=== PATIENT | male | born 1955 | race African-American/Black ===

== ENCOUNTER 2022-05-23 01:43 | Inpatient (IN) | payer MEDICAID, SELFPAY ==
[2022-05-23] VITALS (35 sets, daily range): BP systolic 60–216; BP diastolic 26–111; PULSE 74–126; RESP 14–281; TEMP 28.9–37.2; O2SAT 90–100; BMI 27.5; BMI 28.0
--- NOTE | ~2022-05-23 | XR_ITS ---
EXAMINATION: XR ABDOMEN KUB CLINICAL INDICATION: Nausea, distended abdomen COMPARISON: None TECHNIQUE: AP view of the abdomen. FINDINGS: No gross large volume intra-abdominal free air on this limited supine exam. Moderate gaseous distention of the stomach. There are scattered bowel gas in nondilated loops of small bowel and within portions of the colon. Small amount gas in the rectum. No dilated air-filled small bowel loops. No appreciable bowel wall thickening. Small right basilar pleural effusion versus pleural thickening. Sternal wires, retained epicardial pacing lead and mediastinal vascular clips noted. Atherosclerotic vascular calcifications and right and left iliac stents. Calcifications of the vas deferens noted, which can be associated with underlying diabetes. XR/XR KUB IMPRESSION: Nonspecific, nonobstructive bowel gas pattern.
--- NOTE | ~2022-05-23 | XR_ITS ---
EXAMINATION: XR CHEST CLINICAL INFORMATION: Pulmonary edema COMPARISON: None TECHNIQUE: Frontal view of the chest was obtained. FINDINGS: Lung volumes are symmetric. There are heterogeneous regions of opacity in the perihilar regions and lung bases. Small pleural effusions are also suspected, right greater than left. No evidence of pneumothorax. Cardiac silhouette appears borderline enlarged. Calcification is present at the aortic arch. Sternal wires are present. Stent is present in the left axilla. No acute osseous findings are seen. XR/XR chest 1V IMPRESSION: Bilateral perihilar and basilar heterogeneous opacities suspicious for edema. Small pleural effusions, right greater than left.
--- NOTE | ~2022-05-23 | XR_ITS ---
EXAMINATION: XR CHEST CLINICAL INFORMATION: Central line placement COMPARISON: 05/23/2022 TECHNIQUE: Frontal view of the chest was obtained. FINDINGS: Endotracheal tube tip lies approximately 2 cm above the oziel. Enteric tube tip lies in the region of the gastroesophageal junction. Left IJ central line tip lies in the region of the distal SVC. Lung volumes are symmetric. Redemonstrated perihilar and basilar airspace opacities along with small pleural effusions, right greater than left. No appreciable pneumothorax. The cardiomediastinal silhouette is stable. Calcification is present at the aortic arch. Redemonstrated left axillary stent. No acute osseous findings are seen. XR/XR chest 1V IMPRESSION: Left IJ central line tip in the region of the distal SVC. Enteric tube tip in the region of the gastroesophageal junction; advancement recommended by at least 8 cm. Persistent bilateral opacities suspicious for edema and small pleural effusions.
--- NOTE | ~2022-05-23 | XR_ITS ---
EXAMINATION: XR CHEST CLINICAL INFORMATION: ET tube placement COMPARISON: 05/23/2022 TECHNIQUE: Frontal view of the chest was obtained. FINDINGS: Endotracheal tube tip lies approximately 0.5 cm above the oziel. Enteric tube courses into the stomach. Right IJ central line courses laterally to the region of the right axilla. Lungs are hypoinflated. Persistent heterogeneous bilateral perihilar and basilar opacities, similar to prior. No evidence of pneumothorax. Small right pleural effusion suspected. The cardiomediastinal silhouette is stable. Calcification is present at the aortic arch. Left axillary stent again noted. XR/XR chest 1V IMPRESSION: 1. Endotracheal tube tip approximately 0.5 cm above the oziel. 2. Right IJ central line tip coursing into the region of the right axillary vein. 3. Persistent perihilar and basilar opacities suspicious for edema. This critical result was discussed with Lawrence Yanez MD on 05/23/2022 4:05 AM, and it was ascertained that the content and urgency of the report was understood at the time of direct communication.
--- NOTE | 2022-05-23 01:47 | ECG_ITS ---
Test Reason : SOB Blood Pressure : / mmHG Vent. Rate : 115 BPM Atrial Rate : 115 BPM P-R Int : 176 ms QRS Dur : 076 ms QT Int : 328 ms P-R-T Axes : 048 -30 036 degrees QTc Int : 453 ms Sinus tachycardia Left axis deviation Anterior infarct , age undetermined Abnormal ECG No previous ECGs available Referred By: Robert Yanez Electronically Signed By:BERNY DOZIER
[2022-05-23] MEDS: hydrALAZINE HCl 20 MG/ML VIAL 10 MG IVPUSH (02:02)
[2022-05-23] MEDS: Furosemide 100 MG/10 ML VIAL IVPUSH (02:02)
--- NOTE | 2022-05-23 02:10 | ED.SOB ---
HPI - SOB/Dyspnea General Chief Complaint: Dyspnea Stated Complaint: respiratory distress Time Seen by Provider: 05/23/22 01:45 Source: EMS and RN notes reviewed Mode of arrival: EMS Limitations: no limitations History of Present Illness HPI Narrative: Patient history of end-stage renal disease on dialysis will be getting dialysis tomorrow did not miss any dialysis came from longterm for increased shortness of breath which woke him up from the sleep was diaphoretic this urinate of 40s saturating 40% at she was at room air increased to 100% on non-rebreather. Patient was in severe respiratory distress DNR but DNI. Prior to this patient was in usual health Related Data Allergies Allergy/AdvReac Type Severity Reaction Status Date / Time No Known Allergies Allergy Verified 05/23/22 01:45 Review of Systems Review of Systems: Yes Unobtainable due to mental condition [facility] Social History Social History Household Members: Other Household Members Other:: [facility] Housing: Other Unable to assess alcohol history related to: Unable to respond Patient Tobacco Use Status: Tobacco use Unknown Use of substances other than those prescribed or required for medical reasons: Unknown Spiritual Healthcare Practices: UNKNOWN [facility] Healthcare Practices: UNKNOWN Cultural Healthcare Practices: UNKNOWN Advance Directives: No Advance Directives Information Provided: No Physical Exam Vital Signs: Vital Signs: Last Vital Signs Temp 95.4 F L 05/23/22 06:34 Pulse 86 05/23/22 06:34 Resp 18 05/23/22 06:34 BP 106/65 05/23/22 06:34 Pulse Ox 95 05/23/22 06:00 O2 Del Method 05/23/22 06:34 FiO2 30 05/23/22 06:34 BMI result Body Mass Index 27.5 Appearance: Alert. And awake with severe respiratory distress on non-rebreather Eyes: Pallor++ ENT: Pharynx normal. Oral Mucosa moist Neck: Normal inspection. Neck supple. CVS: Sinus tachycardia soft systolic ejection murmur. Pulses normal. Respiratory: No respiratory distress. Equal air entry bilateral, bilateral diffuse rales Abdomen: Soft and nontender. Bowel sounds are present, no mass palpable, no CVA tenderness Skin: Skin warm and dry. Normal skin color. Normal skin turgor. Extremities: Bilateral AKA Neuro: Alert and awake Course Reevaluation(s) Reevaluation #1: Patient's acute respiratory failure clinically pulmonary edema patient is placed on CPAP on arrival patient is still very tachypneic breathing about 44 will proceed for intubation Time: 02:20 Reevaluation #2: Patient post intubation and central line placement plan to admit to ICU Time: 03:07 MDM - SOB/Dyspnea MDM Narrative Medical decision making narrative: am Patient with acute pulmonary edema end-stage renal disease acute hypoxic respiratory failure status post intubation admitting to the ICU Lab Data Attestation: I reviewed the patient's lab results. Result diagrams: 05/23/22 02:15 05/23/22 02:15 Labs: Lab Results 05/23/22 05/23/22 05/23/22 Range/Units 01:56 02:15 02:15 WBC 10.9 H (4.8-10.8) X10*3/uL RBC 3.07 L (4.60-5.80) X10*6/uL Hgb 9.3 L (14.0-18.0) g/dl Hct 28.0 L (42.0-52.0) % MCV 91.2 (80.0-98.0) fL MCH 30.3 (27.0-33.0) pg MCHC 33.2 (31.0-36.0) g/dl RDW 13.8 (11.0-16.0) % Plt Count 141 L (160-400) X10*3/uL MPV 12.6 H (9.4-12.4) fL Immature Gran % (Auto) 0.4 (0.0-0.4) % Neut % (Auto) 65.1 (45-73) % Lymph % (Auto) 22.3 (20-40) % [place] % (Auto) 7.8 (2-11) % Eos % (Auto) 4.0 (0-4) % Baso % (Auto) 0.4 (0-2) % Lymph # (Auto) 2.4 (1.2-4.9) X10*3/uL [place] # (Auto) 0.9 (0.1-1.2) X10*3/uL Eos # (Auto) 0.4 (0.0-0.4) X10*3/uL Baso # (Auto) 0.0 (0.0-0.2) X10*3/uL Abs Immat Gran (auto) 0.04 H (0.00-0.03) X10*3/uL Absolute Neuts (auto) 7.1 (2.0-8.3) x10*3/uL Absolute Nucleated RBC 0.000 (0.0-0.012) X10*3/uL Nucleated RBC % (auto) 0.0 (0.0-0.2) /100WBC PT 14.8 H (10.0-13.1) SEC INR 1.3 H (0.9-1.1) Sodium (135-145) mmol/L Potassium (3.3-5.1) mmol/L Chloride (96-108) mmol/L Carbon Dioxide (22-29) mmol/L Anion Gap (12-20) BUN (9-16) mg/dL Creatinine (0.5-1.4) mg/dL Estim Creat Clear Calc Estimated GFR POC Glucose 254 H (60-115) mg/dL Random Glucose (60-115) mg/dL Calcium (8.4-10.2) mg/dL Total Bilirubin (0.0-1.0) mg/dL AST (5-37) U/L ALT (0-40) U/L Alkaline Phosphatase (39-117) U/L Troponin I High Sens (<3.5-35.0) ng/L B-Natriuretic Peptide (<100) pg/mL Total Protein (6.5-8.0) g/dL Albumin (3.5-5.0) g/dL COVID-19 (ELENA) (Negative) COVID-19 Clin Com 05/23/22 05/23/22 05/23/22 Range/Units 02:15 02:15 02:15 WBC (4.8-10.8) X10*3/uL RBC (4.60-5.80) X10*6/uL Hgb (14.0-18.0) g/dl Hct (42.0-52.0) % MCV (80.0-98.0) fL MCH (27.0-33.0) pg MCHC (31.0-36.0) g/dl RDW (11.0-16.0) % Plt Count (160-400) X10*3/uL MPV (9.4-12.4) fL Immature Gran % (Auto) (0.0-0.4) % Neut % (Auto) (45-73) % Lymph % (Auto) (20-40) % [place] % (Auto) (2-11) % Eos % (Auto) (0-4) % Baso % (Auto) (0-2) % Lymph # (Auto) (1.2-4.9) X10*3/uL [place] # (Auto) (0.1-1.2) X10*3/uL Eos # (Auto) (0.0-0.4) X10*3/uL Baso # (Auto) (0.0-0.2) X10*3/uL Abs Immat Gran (auto) (0.00-0.03) X10*3/uL Absolute Neuts (auto) (2.0-8.3) x10*3/uL Absolute Nucleated RBC (0.0-0.012) X10*3/uL Nucleated RBC % (auto) (0.0-0.2) /100WBC PT (10.0-13.1) SEC INR (0.9-1.1) Sodium 139 (135-145) mmol/L Potassium 4.2 (3.3-5.1) mmol/L Chloride 102 (96-108) mmol/L Carbon Dioxide 23 (22-29) mmol/L Anion Gap 18 (12-20) BUN 38 H (9-16) mg/dL Creatinine 7.89 H* (0.5-1.4) mg/dL Estim Creat Clear Calc 7.2 Estimated GFR 7 POC Glucose (60-115) mg/dL Random Glucose 252 H (60-115) mg/dL Calcium 7.5 L (8.4-10.2) mg/dL Total Bilirubin 0.9 (0.0-1.0) mg/dL AST 28 (5-37) U/L ALT 16 (0-40) U/L Alkaline Phosphatase 106 (39-117) U/L Troponin I High Sens 74.3 H (<3.5-35.0) ng/L B-Natriuretic Peptide (<100) pg/mL Total Protein 6.9 (6.5-8.0) g/dL Albumin 3.7 (3.5-5.0) g/dL COVID-19 (ELENA) Negative (Negative) COVID-19 Clin Com See Note 05/23/22 Range/Units 02:15 WBC (4.8-10.8) X10*3/uL RBC (4.60-5.80) X10*6/uL Hgb (14.0-18.0) g/dl Hct (42.0-52.0) % MCV (80.0-98.0) fL MCH (27.0-33.0) pg MCHC (31.0-36.0) g/dl RDW (11.0-16.0) % Plt Count (160-400) X10*3/uL MPV (9.4-12.4) fL Immature Gran % (Auto) (0.0-0.4) % Neut % (Auto) (45-73) % Lymph % (Auto) (20-40) % [place] % (Auto) (2-11) % Eos % (Auto) (0-4) % Baso % (Auto) (0-2) % Lymph # (Auto) (1.2-4.9) X10*3/uL [place] # (Auto) (0.1-1.2) X10*3/uL Eos # (Auto) (0.0-0.4) X10*3/uL Baso # (Auto) (0.0-0.2) X10*3/uL Abs Immat Gran (auto) (0.00-0.03) X10*3/uL Absolute Neuts (auto) (2.0-8.3) x10*3/uL Absolute Nucleated RBC (0.0-0.012) X10*3/uL Nucleated RBC % (auto) (0.0-0.2) /100WBC PT (10.0-13.1) SEC INR (0.9-1.1) Sodium (135-145) mmol/L Potassium (3.3-5.1) mmol/L Chloride (96-108) mmol/L Carbon Dioxide (22-29) mmol/L Anion Gap (12-20) BUN (9-16) mg/dL Creatinine (0.5-1.4) mg/dL Estim Creat Clear Calc Estimated GFR POC Glucose (60-115) mg/dL Random Glucose (60-115) mg/dL Calcium (8.4-10.2) mg/dL Total Bilirubin (0.0-1.0) mg/dL AST (5-37) U/L ALT (0-40) U/L Alkaline Phosphatase (39-117) U/L Troponin I High Sens (<3.5-35.0) ng/L B-Natriuretic Peptide 1948 H (<100) pg/mL Total Protein (6.5-8.0) g/dL Albumin (3.5-5.0) g/dL COVID-19 (ELENA) (Negative) COVID-19 Clin Com ECG Data Attestation: I personally reviewed and interpreted this ECG as follows: Interpretation: Sinus tachycardia heart rate 115 beats per minute left axis deviation, poor progression of R-waves no acute distress with no acute ischemia Procedures Central Line Placement Right IJ: Time Out Performed: Yes Patient Placed on Monitor/Pulse Ox: Yes MD Prep: mask and gown Central Line Prep: Chlorhexidine scrub Ultrasound Used for Placement: Yes Central Line Lumen Inserted: triple Post Procedure: sutured in place, good blood return, all ports aspirated, flushed, capped and sterile dressing applied Post Procedure X-Ray: no pneumothorax seen and other (Tip in right subclavian) Patient Tolerated Procedure: no complications Complications: catheter malposition Intubation Time out performed: Yes sedative: Etomidate Mg Given: 10 paralytic: Rocuronium Mg Given: 50 Laryngoscope: Iva ET Tube Size: 8 ET Tube Uncuffed: No Tube Secured Depth (cm): 22 Tube Secured Location: lips Tube Placement Confirmation: visualized tube passing through cords Patient Tolerated Procedure: well Intubation Complications: none Critical Care Time Critical Care Time Critical Care Time: Yes Total Critical Care Time: 60 Attestation: I spent 60 minutes of critical care, with interventions, assessments, speaking to patient, consultants, . Discharge Plan Discharge Clinical Impression: Pulmonary edema, End stage chronic kidney disease, Acute hypoxemic respiratory failure Patient Disposition: Admitted As Inpatient Interventions: Admission Worksheet (ED) Last Done: 05/23/22 06:15 Discharge Date/Time: 05/23/22 06:15
[2022-05-23 02:21] LABS: MANUAL DIFF FLAG NO
[2022-05-23 02:23] LABS: Basophils Percent Auto 0.4 % (0-2); Eosinophils Absolute Auto 0.4 X10*3/uL (0.0-0.4); Hemoglobin 9.3 g/dl (14.0-18.0); Imm Gran Abs Auto 0.04 X10*3/uL (0.00-0.03); Imm Gran Pct Auto 0.4 % (0.0-0.4); Lymphocytes Absolute Auto 2.4 X10*3/uL (1.2-4.9); Lymphocytes Percent Auto 22.3 % (20-40); Mean Corpuscular HGB Conc 33.2 g/dl (31.0-36.0); Mean Corpuscular Hemoglobin 30.3 pg (27.0-33.0); Mean Corpuscular Volume 91.2 fL (80.0-98.0); Mean Platelet Volume 12.6 fL (9.4-12.4); Monocytes Absolute Auto 0.9 X10*3/uL (0.1-1.2); Monocytes Percent Auto 7.8 % (2-11); Neutrophils Absolute Auto 7.1 x10*3/uL (2.0-8.3); Neutrophils Percent Auto 65.1 % (45-73); Platelet Count 141 X10*3/uL (160-400); Red Blood Count 3.07 X10*6/uL (4.60-5.80); Red Cell Distribution Width 13.8 % (11.0-16.0); White Blood Count 10.9 X10*3/uL (4.8-10.8)
[2022-05-23 02:29] LABS: INTERNATIONAL NORM RATIO 1.3 (0.9-1.1); Prothrombin Time 14.8 SEC (10.0-13.1)
[2022-05-23 02:37] LABS: COVID-19 Test Negative (Negative)
[2022-05-23] MEDS: Rocuronium Bromide 50 MG/5 ML VIAL IVPUSH (02:40)
[2022-05-23 02:45] LABS: B Type Natriuretic Peptide 1948 pg/mL (<100)
[2022-05-23 02:46] LABS: Troponin-I High Sensitivity 74.3 ng/L (<3.5-35.0)
[2022-05-23 02:50] LABS: Alanine Aminotransferase 16 U/L (0-40); Albumin Level 3.7 g/dL (3.5-5.0); Alkaline Phosphatase 106 U/L (39-117); Anion Gap 18 (12-20); Aspartate Amino Transferase 28 U/L (5-37); Bilirubin Total 0.9 mg/dL (0.0-1.0); Blood Urea Nitrogen 38 mg/dL (9-16); Calcium 7.5 mg/dL (8.4-10.2); Carbon Dioxide 23 mmol/L (22-29); Chloride 102 mmol/L (96-108); Creatinine Clr Calc Pharmacy 7.2; Estimated Glomerular Filt Rate 7; Glucose Random 252 mg/dL (60-115); Potassium 4.2 mmol/L (3.3-5.1); Sodium 139 mmol/L (135-145); Total Protein 6.9 g/dL (6.5-8.0)
[2022-05-23] MEDS: Etomidate 20 MG/10 ML VIAL 10 MG IVPUSH (03:14)
[2022-05-23] MEDS: propofoL 1,000 MG/100 ML VIAL 3.84 MG IVCONT (03:30)
--- NOTE | 2022-05-23 03:59 | W.PM.CCHP ---
Procedures Date of Service Date of Service: 05/23/22 Central Line Placement Left IJ: Central Line Comments: A quick time-out was made for clarification and proper patient identification, patient was positioned, landmarks were identified, US used to locate a large compressible IJ. The left neck was widely prepped and draped in a full sterile fashion. Ultrasound was used to locate again the left IJ, the vein was cannulated on the 1st pass with an 18 gauge thin needle, dark nonpulsatile blood return was obtained. The wire was threaded, a small incision was made at its base and dilator inserted. A triple-lumen central venous catheter was advanced into the vein up to the hub without problems, wired was removed. Ports had good blood return and flushed x3. The catheter was secured with 3 sutures at 3 sites, a Biopatch and dry sterile dressing were applied. At the same time, the right IJ catheter was removed for it was difficult to pull back, therefore I did not think re threading the wire would work. Post procedure chest x-ray showed the line to be in good position without pneumothorax. No bleeding or complications noted.
--- NOTE | 2022-05-23 03:59 | PM.CCHP ---
History of Present Illness Date of Service: 05/23/22 Attending physician on admission: James Mitchell Chief Complaint: Hypoxic respiratory failure, pulmonary edema Source of history: ?ER chart ? HPI:? Patient is seen in the emergency room complaints of shortness of breath since earlier today, patient was transferred from long term facility, reportedly he has a history of end-stage renal disease, coronary disease status post CABG, hypertension, diabetes, bilateral [id number] amputations, otherwise unknown. According to the ER physician, the patient quickly deteriorated as the patient presented with a simple mask oxygen supplementation and was quite hypertensive with systolic blood pressure over 204, tachypneic, appear to be in distress, Lasix was given and the patient quickly decompensated leading to emergent intubation. ? His laboratory survey reveals a white count of 10.9, hemoglobin 9.3, hematocrit 28, platelets 141, sodium 139, potassium 4.2, chloride 102, carbon dioxide 23, BUN 38, creatinine 7.89, glucose 252.? COVID negative, patient is BNP is 1948, troponin 74.3, his chest x-ray did show bilateral and bibasilar heterogeneous opacities suspicious for pulmonary edema, to my view these also has cardiomegaly and small pleural effusion on the right greater on left.? The patient did have a attempted right IJ CVL placement which went into the right subclavian vein. ?No pneumothorax reported or noted.? The patient will be transferred to ICU for further treatment.? There is no family available and no further history known from the patient. ? ? ROS:? UNABLE TO OBTAIN PATIENT INTUBATED ? Past Medical History:? As above ? Past Surgical History:? As above ? Family history:? Unknown ? Social History: Unkown ? CODE STATUS:? Full code ? Allergies:? No known drug allergies ? Home Medications:? see Med Rec ? PHYSICAL EXAM: VS: 122/65? , heart rate 77? , respirations ?16 , O2 sat 99% on mechanical ventilation, temperature . ? VENT SETTINGS : AC; 14;350; 30%; 8 ? General:? Sedated on a ventilator ? Skin:? Intact, no lesions, edema, erythema, clubbing or cyanosis.? No ulcers. ? HEENT:? Head is normocephalic, atraumatic, pupils pinpointed and nonreactive.? Neck is supple, no JVD or lymphadenopathy, no masses. ? Cardiac:? Clear S1-S2, no murmurs rubs or gallops. ? Pulmonary: ?Coarse lung sounds bilaterally with fine crackles at both bases. ? Abdomen:? Protuberant, positive bowel sounds in all 4 quadrants.? Soft ? Musculoskeletal: ?Bilateral [id number] amputations, old in appearance.? No cogwheeling of the upper extremities upon flexion extension at the major joints. ? Neurologic:? As above otherwise unable to assess ? Vascular:? 2+ pulses upper and lower extremities distally. ? SIGNIFICANT LABORATORY DATA:?As above ? REVIEW OF IMAGES: CXR IMPRESSION: Bilateral perihilar and basilar heterogeneous opacities suspicious for edema. Small pleural effusions, right greater than left. ? CXR post right IJ CVL placement To my view, the appearance of the x-rays similar to the above with exception of a right IJ CVL catheter that is going into the right subclavian vein.? No pneumothorax noted.? Final radiology read is pending. ? EKG REVIEW: ?To my view this is sinus rhythm 115 beats per minute no ST elevations, no depressions.? Left axis deviation.? Age-indeterminate changes in the anterior leads.? No comparison.? QT 328. ? ASSESSMENT AND PLAN: 1. Acute hypoxic respiratory failure 2. Flash pulmonary edema due to uncontrolled hypertension 3. Hypertensive urgency 4. Chronic kidney disease in need of hemodialysis 5. Pseudo hypocalcemia with correct level of 8.54 6. History of coronary disease status post CABG and renally driven troponin abnormality, will r/o ACS 7. Missed Placement of right IJ CVL 8. Uncontrolled diabetes 9. Anemia of chronic disease ? PLAN OF CARE: Plans to admit this patient to the ICU, will continue with oxygenation support via vent with the current settings, to empiric to control this patient's blood pressure, will given labetalol and applied nitroglycerin patch to his chest.? Patient will need hemodialysis and I have consulted pre sales technical consultant Dr. Reyes who is aware of it. The above-mentioned right IJ CVL will have to be either replaced or repositioned which I will do here in the ICU, please see separate note about this.? Start him on insulin sliding scale. ? GI PROPHYLAXIS: ?Head of the bed at 30 degree angle and liquid omeprazole DVT PROPHYLAXIS: ?Heparin subQ b.i.d. ? Critical care time used for critical evaluation of this patient, diagnosis, treatment and coordination of care, review her records and documentation TOTAL CRITICAL CARE TIME 90 MIN ? Patient's care was discussed in detail with Dr. Mitchell.? He is aware of all the above as well as the plan of care for this patient. ? ? [facility] Past Medical History Medical History (Updated 05/23/22 @ 10:59 by Jaime Quinonez MD) End stage chronic kidney disease Essential hypertension Social History Social History Household Members: Other Household Members Other:: [facility] F[facility] Housing: Other Unable to assess alcohol history related to: Unable to respond Patient Tobacco Use Status: Tobacco use Unknown Use of substances other than those prescribed or required for medical reasons: Unknown Currently Displaying Signs/Symptoms of Drug Intoxication Withdrawal: No Spiritual Healthcare Practices: UNKNOWN [facility] Healthcare Practices: UNKNOWN Cultural Healthcare Practices: UNKNOWN Advance Directives: No Advance Directives Information Provided: No service: No Meds Allergies Allergy/AdvReac Type Severity Reaction Status Date / Time No Known Allergies Allergy Verified 05/23/22 01:45 Active Medications: Current Medications Heparin Sodium (Porcine) (Heparin Sodium,Porcine 5,000 Unit/Ml Vial) 5,000 unit SUBCUT BID VICTOR HUGO Propofol (Diprivan) 1,000 mg in 100 mls @ 0 mls/hr IVCONT .Q0M VICTOR HUGO; Protocol Home Medications Medication Instructions Recorded Confirmed Last Taken Type acetaminophen 325 mg tablet 650 mg PO Q6H PRN Pain (Scale 05/23/22 05/23/22 Unknown History Score 4-6) acetaminophen 650 mg rectal 650 mg WV Q6H PRN Pain (Scale 05/23/22 05/23/22 Unknown History suppository Score 4-6) atorvastatin 80 mg tablet 80 mg PO BEDTIME 05/23/22 05/23/22 Unknown History bisacodyl 10 mg rectal suppository 10 mg WV DAILY PRN IF MOM 05/23/22 05/23/22 Unknown History INEFFECTIVE FOR BM brimonidine 0.2 % eye drops 1 drp ophthalmic (eye) BID 05/23/22 05/23/22 Unknown History carvedilol 25 mg tablet 50 mg PO BID 05/23/22 05/23/22 Unknown History clonidine HCl 0.2 mg tablet 0.2 mg PO MOWEFR@0900,2100 05/23/22 05/23/22 Unknown History clonidine HCl 0.2 mg tablet See Rx Instructions .Route .COMPLEX 05/23/22 05/23/22 Unknown History docusate sodium 100 mg capsule 100 mg PO BID 05/23/22 05/23/22 Unknown History ergocalciferol (vitamin D2) 1,250 1,250 mcg PO QMONTH 05/23/22 05/23/22 05/19/22 History mcg (50,000 unit) capsule gabapentin 100 mg capsule 100 mg PO DAILY 05/23/22 05/23/22 Unknown History isosorbide mononitrate 30 mg 1 tab PO DAILY 05/23/22 05/23/22 Unknown History tablet,extended release 24 hr levothyroxine 175 mcg tablet 175 mcg PO DAILY@0600 05/23/22 05/23/22 Unknown History minoxidil 10 mg tablet 10 mg PO DAILY 05/23/22 05/23/22 Unknown History nifedipine 30 mg tablet,extended 30 mg PO DAILY 05/23/22 05/23/22 Unknown History release nifedipine 90 mg tablet,extended 90 mg PO DAILY 05/23/22 05/23/22 Unknown History release 24 hr pantoprazole 40 mg tablet,delayed 40 mg PO BID 05/23/22 05/23/22 Unknown History release sevelamer carbonate 800 mg tablet 800 mg PO TIDWM 05/23/22 05/23/22 Unknown History valsartan 320 mg tablet 320 mg PO DAILY 05/23/22 05/23/22 Unknown History vitamin B complex 1 tab PO DAILY 05/23/22 05/23/22 Unknown History Physical Exam Vital Signs: Vital Signs: Last Vital Signs Temp 97.9 F 05/23/22 01:45 Pulse 77 05/23/22 03:56 Resp 16 05/23/22 03:56 BP 125/65 05/23/22 03:56 Pulse Ox 99 05/23/22 03:56 O2 Del Method 05/23/22 03:56 FiO2 100 05/23/22 02:56 BMI result Body Mass Index 27.5 Results Labs CBC and Chem 7: 05/23/22 02:15 05/23/22 02:15 Labs: Laboratory Results - last 24 hr 05/23/22 05/23/22 05/23/22 02:15 02:15 02:15 MCV 91.2 MCH 30.3 MCHC 33.2 RDW 13.8 Plt Count 141 L MPV 12.6 H Immature Gran % (Auto) 0.4 Neut % (Auto) 65.1 Lymph % (Auto) 22.3 [place] % (Auto) 7.8 Eos % (Auto) 4.0 Baso % (Auto) 0.4 Lymph # (Auto) 2.4 [place] # (Auto) 0.9 Eos # (Auto) 0.4 Baso # (Auto) 0.0 Abs Immat Gran (auto) 0.04 H Absolute Neuts (auto) 7.1 Absolute Nucleated RBC 0.000 Nucleated RBC % (auto) 0.0 PT 14.8 H INR 1.3 H Anion Gap 18 Estim Creat Clear Calc 7.2 Estimated GFR 7 Random Glucose 252 H Calcium 7.5 L Total Bilirubin 0.9 AST 28 ALT 16 Alkaline Phosphatase 106 B-Natriuretic Peptide Total Protein 6.9 Albumin 3.7 COVID-19 (ELENA) COVID-19 Clin Com 05/23/22 05/23/22 02:15 02:15 MCV MCH MCHC RDW Plt Count MPV Immature Gran % (Auto) Neut % (Auto) Lymph % (Auto) [place] % (Auto) Eos % (Auto) Baso % (Auto) Lymph # (Auto) [place] # (Auto) Eos # (Auto) Baso # (Auto) Abs Immat Gran (auto) Absolute Neuts (auto) Absolute Nucleated RBC Nucleated RBC % (auto) PT INR Anion Gap Estim Creat Clear Calc Estimated GFR Random Glucose Calcium Total Bilirubin AST ALT Alkaline Phosphatase B-Natriuretic Peptide 1948 H Total Protein Albumin COVID-19 (ELENA) Negative COVID-19 Clin Com See Note Imaging Radiologist's Impressions: Impressions Chest X-Ray 05/23/22 01:55
[2022-05-23 05:30] LABS: Glucose, Whole Blood 254 mg/dL (60-115)
[2022-05-23 05:30] LABS: Glucose, Whole Blood 200 mg/dL (60-115)
[2022-05-23 06:23] LABS: VBG Base Excess -4.7 mmol/L; VBG HCO3 20 mmol/L (22-26); VBG pCO2 36 mmHg; VBG pH 7.34 (7.32-7.43); VBG pO2 43 mmHg
--- NOTE | 2022-05-23 06:39 | PC.NURSE ---
PT TO ICU AT 0600 FROM ER. INTUBATED AND ON VENTILATOR. NO RESP DIFFICULTIES. AC VENT SETTINGS. 02 SAT 97%. PT IS SEDATED ON PROPOFOL, PUPILS PINPOINT, WEAK COUGH AND GAG REFLEX, MOVES ARMS WEAKLY, OPENS EYES BRIEFLY AND THEN FALLS ASLEEP. MONITOR SHOWS NSR, RATE 80'S, OCC PAC/PVC. LUNGS WITH CRACKLES IN THE BASES. ABD DISTENDED, ROUND, SEMI FIRM WITH POS BOWEL SOUNDS X 4 QUADS. OGT CHECKED AND POS PLACEMENT VERIFIED. AGUILAR IN PLACE WITH NO URINE. SKIN IS INTACT. BILAT AKA NOTED.
--- NOTE | 2022-05-23 07:00 | CA_ITS ---
Transthoracic Echocardiogram Patient (Last, First, Middle): Clinton Small, Gender: Male Date of : 1955 Age: 66 Procedure Date: 05/23/2022 Procedure Type: Transthoracic Echocardiogram Location: ICU Height: 152.4 cm Weight: 64.86 kg BSA: 1.62 m2 Heart Rate: 100 bpm BP: 167 / 85 mmHg Echo Vasc Tech: Referring MD: James Mitchell MD Symptoms: RULE OUT IA Study Quality: Adequate ECG Rhythm: Sinus Conclusions: - The left ventricular systolic function is severely decreased. The visually estimated ejection fraction is between 20-25%. - The entire apex and mid anteroseptal segment are akinetic. - There is moderately decreased right ventricular systolic function. - There is moderate mitral annular calcification. - There is mild aortic valve stenosis. Findings Procedure Information Contrast agent, definity, is being given per protocol without apparent complications. Left Ventricle Normal left ventricular cavity size. There is moderately increased left ventricular wall thickness. The left ventricular systolic function is severely decreased. The visually estimated ejection fraction is between 20 25%. There is evidence of regional wall motion abnormalities. E/E prime ratio is >15, consistent with elevated filling pressures. Evidence suggests grade I (mild) diastolic dysfunction. Wall Motion Rest Echo Findings The entire apex and mid anteroseptal segment are akinetic. Right Ventricle Mildly increased right ventricular cavity size. There is moderately decreased right ventricular systolic function. Atria The left atrium is moderately dilated. The right atrium is normal in size. Aortic Valve There is mild calcification of the aortic valve. There is mild aortic valve stenosis. There is no aortic valve regurgitation. Mitral Valve There is moderate mitral annular calcification. There is trace mitral valve regurgitation. There is no mitral valve stenosis. Pulmonic Valve The pulmonic valve is likely normal. Tricuspid Valve Normal tricuspid valve structure. There is mild tricuspid valve regurgitation. There is no evidence of pulmonary hypertension. Great Vessels The asc aorta is normal in size. Venous The inferior vena cava is normal in size and collapses less than 50% with inspiration. (on ventilator). Pericardium/Pleural There is no evidence of pericardial effusion. Prior Study Comparison No prior study available for comparison. Measurements 2D Linear Measurements IVSd: 1.27 0.6-0.9/0.6-1.0 cm LVIDd: 4.04 3.9-5.3/4.2-5.9 cm LVIDd Index: 2.49 2.4-3.2/2.2-3.1 cm/m2 LVIDs: 2.88 2.0-3.6 cm LVPWd: 1.27 0.7-1.1 cm LA Diam: 3.90 2.7-3.8/3.0-4.0 cm LAIDs Index: 2.41 1.5-2.3 cm/m2 LV Mass: 227.71 67-162/88-224 g LV Mass Index: 140.56 43-95/49-115 g/m2 LVOT Diam: 1.90 3.0+(-)1.3 cm 2D Systolic Function EF 4C: 34.20 >55% EF 2C: 38.50 >55% EF BiP: 34.50 >55% Mitral Valve MV Pk E: 0.86 MV PK A: 1.32 MV Decel Time: 86.00 E/A: 0.60 E'Lateral: 6.64 E'Medial: 4.46 E/E' Med: 19.20 E/E' Lat: 12.90 PHT: 25.00 MVA PHT: 8.80 Decel Armstrong: 9.94 Aortic Valve AoV Pk Jacobo: 2.09 AoV Mn Jacobo: 1.39 AoV VTI: 0.35 AoV Pk Grad: 17.00 Aov Mn Grad: 9.00 WILDER Cont.VTI: 1.48 LVOT LVOT Pk Jacobo: 0.86 LVOT Mn Jacobo: 0.57 LVOT VTI: 0.18 LVOT Pk Grad: 3.00 LVOT Mn Grad: 2.00 LVOT Diam: 1.90 LVOT Area: 2.84 Diastolic Function MV Pk E: 0.86 MV Pk A: 1.32 E/A: 0.60 E'Medial: 4.46 E/E' Med: 19.20 E' Laterial: 6.64 E/E' Lat: 12.90 Right Ventricle TAPSE (mm): 10.20 TVS' Jacobo: 5.40 Tricuspid Valve TR Pk Jacobo: 2.71 TR Pk Grad: 29.00 RA Press: 3.00 RVSP: 32.00 Great Vessels Aorta Sinus of Valsalva: 2.80 2.0-3.5 cm Ao Asc: 2.90 2.1-3.4 cm Pulmonary Valve PV Pk Jacobo: 0.98 Peak PV Grad: 4.00 Updated in Other Vendor System with Status of Final Jaime Quinonez MD electronically signed on 05/23/2022 3:57:52 PM with status of Final
[2022-05-23 07:04] LABS: Troponin-I High Sensitivity 516.8 ng/L (<3.5-35.0)
[2022-05-23] MEDS: Sodium Bicarbonate 8.4% 50 MEQ/50 ML SYRINGE IVPUSH (07:14)
--- NOTE | 2022-05-23 07:29 | ECG_ITS ---
Test Reason : r/o CA Blood Pressure : / mmHG Vent. Rate : 080 BPM Atrial Rate : 080 BPM P-R Int : 162 ms QRS Dur : 064 ms QT Int : 448 ms P-R-T Axes : 041 015 261 degrees QTc Int : 516 ms Sinus rhythm with occasional Premature ventricular complexes Anterior infarct (cited on or before 23-MAY-2022) T wave abnormality, consider inferolateral ischemia Prolonged QT Abnormal ECG When compared with ECG of 23-MAY-2022 01:40, Premature ventricular complexes are now Present Serial changes of Anterior infarct Present T wave inversion now evident in Inferolateral leads T wave inversion now evident in Anterior leads Referred By: James Mitchell Electronically Signed By:BERNY DOZIER
[2022-05-23] MEDS: Aspirin 81 MG TAB.CHEW G-TUBE (07:46)
[2022-05-23] MEDS: Atorvastatin Calcium 40 MG TABLET G-TUBE (07:46)
[2022-05-23] MEDS: Heparin Sodium,Porcine 5,000 UNIT/ML VIAL 1800 UNIT IVPUSH (07:54)
[2022-05-23] MEDS: Heparin Sodium,Porcine/1/2NS 25,000 UNIT/250 ML IV.SOLN 7.8 UNIT IVCONT (07:55)
[2022-05-23 08:40] LABS: Venous Blood Gas Refer to POC result
[2022-05-23] MEDS: propofoL 200 MG/20 ML VIAL 30 MG IVPUSH (09:57)
--- NOTE | 2022-05-23 10:20 | MHC.CM.PN ---
Pt is in ICU on ventilatory support and receiving HD. Pt is a LTC bed hold from [facility]. His sister, Chantale is his next of contact and HCP. Pt has a valid MOLST form in chart. Call placed to Chantale, she does not have a copy of pt's HCP but states she is only family member living or not incarcerated so she would be the one to serve in this role. Clinical update given. Per RN at [facility], pt is independent with ADL's, propels self in w/c, eats without assistance and is A&Ox4. 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 Pt will return to [facility] via BLS when medically stable. Up to date ernestine/Antwan garcia
--- NOTE | 2022-05-23 10:24 | PHA.MEDREC ---
MED REC COMPLETE, USED [facility] Pharmacy Consult ? Medication Reconciliation Pharmacy has completed the medication reconciliation.
[2022-05-23] MEDS: propofoL 1,000 MG/100 ML VIAL 7.68 MG IVCONT (10:48)
--- NOTE | 2022-05-23 10:54 | P.CONCA_ITS ---
History of Present Illness History of Present Illness Date of Service: 05/23/22 Chief complaint: ACUTE RESP FAILURE / PULM EDEMA Narrative: This is a cardiology consultation regarding elevated troponins and abnormal EKG. Patient is on the ventilator and no history is obtainable. Based on discussion with dispatcher refinery as well as review of records, it seems that he was admitted for shortness of breath from prison facility. Has a history of ESRD. Also stated history of CABG but no further information. History of diabetes hypertension and bilateral above knee amputations. It seems that he quickly deteriorated and was quite hypertensive with systolics in the 200s and tachy pneic and in distress. Subsequently intubated. He remains on the ventilator. From a cardiac standpoint EKG changes were noted and also with elevated troponins and hence we have been asked to see him. No direct history is obtainable from the patient. Review of Systems Review of Systems: Unable to obtain as he is on the ventilator. [facility] Past Medical History Medical History (Updated 05/23/22 @ 10:59 by Jaime Quinonez MD) End stage chronic kidney disease Essential hypertension Family History Pertinent family history: Unobtainable, patient on ventilator and sedated. Social History Social History Household Members: Other Household Members Other:: [facility] Housing: Other Unable to assess alcohol history related to: Unable to respond Patient Tobacco Use Status: Tobacco use Unknown Use of substances other than those prescribed or required for medical reasons: Unknown Currently Displaying Signs/Symptoms of Drug Intoxication Withdrawal: No Spiritual Healthcare Practices: UNKNOWN Mandaen Healthcare Practices: UNKNOWN Cultural Healthcare Practices: UNKNOWN Advance Directives: No Advance Directives Information Provided: No Meds Allergies Allergy/AdvReac Type Severity Reaction Status Date / Time No Known Allergies Allergy Verified 05/23/22 01:45 Active Medications: Current Medications Aspirin (Aspirin 81 Mg Tab.Chew) 81 mg G-TUBE DAILY [facility] Last Admin: 05/23/22 07:46 Dose: 81 mg Atorvastatin Calcium (Atorvastatin Calcium 40 Mg Tablet) 40 mg G-TUBE DAILY [facility] Last Admin: 05/23/22 07:46 Dose: 40 mg Dextrose (Dextrose 50 % 25 Gm/50 Ml Syringe) 25 gm IVPUSH Q15M PRN; Protocol PRN Reason: per Hypoglycemia Standing Ord. Glucose (Glucose Gel 15 Gm Gel..Gram.) 15 gm PO Q15M PRN; Protocol PRN Reason: per Hypoglycemia Standing Ord. Heparin Sodium (Porcine) (Heparin Sodium,Porcine 5,000 Unit/Ml Vial) 2,600 unit 40 unit/kg (2600 unit) IVPUSH PROTOCOL BOLUS PRN; Protocol PRN Reason: 40 unit/kg - Heparin Protocol Heparin Sodium (Porcine) (Heparin Sodium,Porcine 5,000 Unit/Ml Vial) 5,200 unit 80 unit/kg (5200 unit) IVPUSH PROTOCOL BOLUS PRN; Protocol PRN Reason: 80 unit/kg - Heparin Protocol Propofol (Diprivan) 1,000 mg in 100 mls @ 0 mls/hr IVCONT .Q0M [facility]; Protocol Last Admin: 05/23/22 10:48 Dose: 20 mcg/kg/min, 7.68 mls/hr Heparin Sodium/Sodium Chloride (Heparin Sodium,Porcine/1/2ns) 25,000 unit in 250 mls @ 0 mls/hr IVCONT .Q0M [facility]; Protocol Last Admin: 05/23/22 07:55 Dose: 12 units/kg/hr, 7.8 mls/hr Insulin Human Lispro (Insulin Lispro 100 Unit/Ml 3 Ml Vial) 0 unit SUBCUT Q6H [facility]; Protocol Last Admin: 05/23/22 06:23 Dose: Not Given Home Medications Medication Instructions Recorded Confirmed Last Taken Type acetaminophen 325 mg tablet 650 mg PO Q6H PRN Pain (Scale 05/23/22 05/23/22 Unknown History Score 4-6) acetaminophen 650 mg rectal 650 mg OK Q6H PRN Pain (Scale 05/23/22 05/23/22 Unknown History suppository Score 4-6) atorvastatin 80 mg tablet 80 mg PO BEDTIME 05/23/22 05/23/22 Unknown History bisacodyl 10 mg rectal suppository 10 mg OK DAILY PRN IF MOM 05/23/22 05/23/22 Unknown History INEFFECTIVE FOR BM brimonidine 0.2 % eye drops 1 drp ophthalmic (eye) BID 05/23/22 05/23/22 Unknown History carvedilol 25 mg tablet 50 mg PO BID 05/23/22 05/23/22 Unknown History clonidine HCl 0.2 mg tablet 0.2 mg PO MOWEFR@0900,2100 05/23/22 05/23/22 Unknown History clonidine HCl 0.2 mg tablet See Rx Instructions .Route .COMPLEX 05/23/22 05/23/22 Unknown History docusate sodium 100 mg capsule 100 mg PO BID 05/23/22 05/23/22 Unknown History ergocalciferol (vitamin D2) 1,250 1,250 mcg PO QMONTH 05/23/22 05/23/22 05/19/22 History mcg (50,000 unit) capsule gabapentin 100 mg capsule 100 mg PO DAILY 05/23/22 05/23/22 Unknown History isosorbide mononitrate 30 mg 1 tab PO DAILY 05/23/22 05/23/22 Unknown History tablet,extended release 24 hr levothyroxine 175 mcg tablet 175 mcg PO DAILY@0600 05/23/22 05/23/22 Unknown History minoxidil 10 mg tablet 10 mg PO DAILY 05/23/22 05/23/22 Unknown History nifedipine 30 mg tablet,extended 30 mg PO DAILY 05/23/22 05/23/22 Unknown Histor y release nifedipine 90 mg tablet,extended 90 mg PO DAILY 05/23/22 05/23/22 Unknown History release 24 hr pantoprazole 40 mg tablet,delayed 40 mg PO BID 05/23/22 05/23/22 Unknown History release sevelamer carbonate 800 mg tablet 800 mg PO TIDWM 05/23/22 05/23/22 Unknown History valsartan 320 mg tablet 320 mg PO DAILY 05/23/22 05/23/22 Unknown History vitamin B complex 1 tab PO DAILY 05/23/22 05/23/22 Unknown History Physical Exam Vital Signs: Vital Signs: Last Vital Signs Temp 97.3 F 05/23/22 10:00 Pulse 94 05/23/22 10:00 Resp 15 05/23/22 10:00 BP 134/70 05/23/22 10:16 Pulse Ox 98 05/23/22 10:00 O2 Del Method 05/23/22 10:00 FiO2 25 05/23/22 10:00 BMI result Body Mass Index 28.0 Const: Other: on ventilator, sedated HEENT: Other: Unremarkable Head: Yes normal to inspection Neck: Neck: Yes normal visual inspection Chest: Chest palpation & inspection: normal inspection of the chest Resp: Other: limited auscultation, some crackles Cardio: Palpation: normal PMI Heart sounds: S1 normal heart sound present, S2 normal heart sound present, no gallops, no murmurs and no rubs GI: Palpation (GI): Soft to palpation Back/Spine/Pelvis: Other: unremarkable Skin: General skin exam: no rashes or lesions noted Extrem: Other: B/L AKA Psych: Mental Status: mental status grossly abnormal Objective Labs and Meds Result diagrams: 05/23/22 02:15 05/23/22 02:15 Lab results: Laboratory Results - last 24 hr 05/23/22 05/23/22 05/23/22 01:56 02:15 02:15 WBC 10.9 H RBC 3.07 L Hgb 9.3 L Hct 28.0 L MCV 91.2 MCH 30.3 MCHC 33.2 RDW 13.8 Plt Count 141 L MPV 12.6 H Immature Gran % (Auto) 0.4 Neut % (Auto) 65.1 Lymph % (Auto) 22.3 [place] % (Auto) 7.8 Eos % (Auto) 4.0 Baso % (Auto) 0.4 Lymph # (Auto) 2.4 [place] # (Auto) 0.9 Eos # (Auto) 0.4 Baso # (Auto) 0.0 Abs Immat Gran (auto) 0.04 H Absolute Neuts (auto) 7.1 Absolute Nucleated RBC 0.000 Nucleated RBC % (auto) 0.0 PT 14.8 H INR 1.3 H aPTT Heparin Protocol VBG pH VBG pCO2 VBG pO2 VBG HCO3 VBG O2 Saturation VBG Base Excess Sodium Potassium Chloride Carbon Dioxide Anion Gap BUN Creatinine Estim Creat Clear Calc Estimated GFR POC Glucose 254 H Random Glucose Calcium Total Bilirubin AST ALT Alkaline Phosphatase Troponin I High Sens B-Natriuretic Peptide Total Protein Albumin COVID-19 (ELENA) COVID-19 Clin Com 05/23/22 05/23/22 05/23/22 02:15 02:15 02:15 WBC RBC Hgb Hct MCV MCH MCHC RDW Plt Count MPV Immature Gran % (Auto) Neut % (Auto) Lymph % (Auto) [place] % (Auto) Eos % (Auto) Baso % (Auto) Lymph # (Auto) [place] # (Auto) Eos # (Auto) Baso # (Auto) Abs Immat Gran (auto) Absolute Neuts (auto) Absolute Nucleated RBC Nucleated RBC % (auto) PT INR aPTT Heparin Protocol VBG pH VBG pCO2 VBG pO2 VBG HCO3 VBG O2 Saturation VBG Base Excess Sodium 139 Potassium 4.2 Chloride 102 Carbon Dioxide 23 Anion Gap 18 BUN 38 H Creatinine 7.89 H* Estim Creat Clear Calc 7.2 Estimated GFR 7 POC Glucose Random Glucose 252 H Calcium 7.5 L Total Bilirubin 0.9 AST 28 ALT 16 Alkaline Phosphatase 106 Troponin I High Sens 74.3 H B-Natriuretic Peptide Total Protein 6.9 Albumin 3.7 COVID-19 (ELENA) Negative COVID-19 Clin Com See Note 05/23/22 05/23/22 05/23/22 02:15 05:05 06:15 WBC RBC Hgb Hct MCV MCH MCHC RDW Plt Count MPV Immature Gran % (Auto) Neut % (Auto) Lymph % (Auto) [place] % (Auto) Eos % (Auto) Baso % (Auto) Lymph # (Auto) [place] # (Auto) Eos # (Auto) Baso # (Auto) Abs Immat Gran (auto) Absolute Neuts (auto) Absolute Nucleated RBC Nucleated RBC % (auto) PT INR aPTT Heparin Protocol VBG pH VBG pCO2 VBG pO2 VBG HCO3 VBG O2 Saturation VBG Base Excess Sodium Potassium Chloride Carbon Dioxide Anion Gap BUN Creatinine Estim Creat Clear Calc Estimated GFR POC Glucose 200 H Random Glucose Calcium Total Bilirubin AST ALT Alkaline Phosphatase Troponin I High Sens 516.8 H* D B-Natriuretic Peptide 1948 H Total Protein Albumin COVID-19 (ELENA) COVID-19 Clin Com 05/23/22 05/23/22 06:17 07:51 WBC RBC Hgb Hct MCV MCH MCHC RDW Plt Count MPV Immature Gran % (Auto) Neut % (Auto) Lymph % (Auto) [place] % (Auto) Eos % (Auto) Baso % (Auto) Lymph # (Auto) [place] # (Auto) Eos # (Auto) Baso # (Auto) Abs Immat Gran (auto) Absolute Neuts (auto) Absolute Nucleated RBC Nucleated RBC % (auto) PT INR aPTT Heparin Protocol 35.0 L VBG pH 7.34 VBG pCO2 36 VBG pO2 43 VBG HCO3 20 L VBG O2 Saturation 70.0 VBG Base Excess -4.7 Sodium Potassium Chloride Carbon Dioxide Anion Gap BUN Creatinine Estim Creat Clear Calc Estimated GFR POC Glucose Random Glucose Calcium Total Bilirubin AST ALT Alkaline Phosphatase Troponin I High Sens B-Natriuretic Peptide Total Protein Albumin COVID-19 (ELENA) COVID-19 Clin Com ECG Interpretation: EKG with sinus rhythm at 80/Min; inverted T-waves in the precordial leads as well as inferior leads. Previous anteroseptal infarct. Prolongation of QT. in the EKG from admission, these changes are not seen. Imaging Radiologist's impression: Impressions Chest X-Ray 05/23/22 01:55 IMPRESSION: Bilateral perihilar and basilar heterogeneous opacities suspicious for edema. Small pleural effusions, right greater than left. Chest X-Ray 05/23/22 03:15 IMPRESSION: 1. Endotracheal tube tip approximately 0.5 cm above the oziel. 2. Right IJ central line tip coursing into the region of the right axillary vein. 3. Persistent perihilar and basilar opacities suspicious for edema. This critical result was discussed with Lawrence Yanez MD on 05/23/2022 4:05 AM, and it was ascertained that the content and urgency of the report was understood at the time of direct communication. Chest X-Ray 05/23/22 05:15 IMPRESSION: Left IJ central line tip in the region of the distal SVC. Enteric tube tip in the region of the gastroesophageal junction; advancement recommended by at least 8 cm. Persistent bilateral opacities suspicious for edema and small pleural effusions. Assessment and Plan (1) Hypertensive emergency: Status: Acute (2) Acute hypoxemic respiratory failure: Status: Acute (3) NSTEMI (non-ST elevated myocardial infarction): Status: Acute (4) End stage chronic kidney disease: Status: Acute Plan EKG changes could be from uncontrolled hypertension and myocardial stress. Could also be from LAD territory ischemia. Difficult to differentiate. Troponin elevation could also be from uncontrolled hypertension/myocardial supply/demand mismatch. Less likely from type 1 NSTEMI. At this time, supportive care for respiratory failure. From the NSTEMI standpoint, IV heparin, aspirin and statins. Echocardiogram. When he is extubated, based on mental status, patient preference, can decide further care. Procedures Date of Service Date of Service: 05/23/22
--- NOTE | 2022-05-23 11:39 | MHC.CLN ---
NUTRITION PATIENT INTUBATED AND SEDATED. RECEIVING HD THIS AM. PLAN TO EXTUBATE AFTER DIALYSIS. PER [facility], HAD BEEN EATING WITHOUT ASSISTANCE. IF ABLE TO TOLERATE PO, RECOMMEND THERAPEUTIC COMPONENT OF DIET DUE TO ESRD, ON HD, AND DX DM. REC DIABETIC 1800 KCALS, 2 GRAM SODIUM, LOW POTASSIUM, LOW PHOSPHORUS. FOLLOW FOR DIET ADVANCEMENT OR NEED FOR ALTERNATE NUTRITION.
[2022-05-23 12:11] LABS: Glucose, Whole Blood 67 mg/dL (60-115)
[2022-05-23] MEDS: Dextrose 50 % 25 GM/50 ML SYRINGE IVPUSH ×3 (12:15→22:06)
[2022-05-23 12:40] LABS: HBS Num1 60.18 mIU/mL (0-7.99); HBc Num1 6.29 S/CO (0.00-0.79); ~Hepatitis B Surface Antibody REACTIVE (Nonreactive)
[2022-05-23 13:51] LABS: HBc Num2 6.63 S/CO; HBc Num3 6.76 S/CO; HBsAGNum2 Nonreactive; HBsAGNum3 Nonreactive; Hepatitis B Core Antibody Reactive (Nonreactive); Hepatitis B Surface Antigen NEGATIVE (Negative)
[2022-05-23 14:08] LABS: Glucose, Whole Blood 72 mg/dL (60-115)
[2022-05-23 14:23] LABS: PTT Heparin Drip 90.5 SEC (53-77.9)
[2022-05-23] MEDS: ondansetron HCL 4 MG/2 ML VIAL IVPUSH (14:23)
[2022-05-23] MEDS: Nitroglycerin 2 % Oint 1 GM Packet 2 INCH TRANSDERMA (15:05)
[2022-05-23] MEDS: Metoprolol Tartrate 5 MG/5 ML VIAL IVPUSH ×2 (15:25→16:44)
--- NOTE | 2022-05-23 15:27 | P.PNCC_ITS ---
Subjective Subjective Date of Service: 05/23/22 Interval History: Mr. Small was admitted to the ICU early after being intubated in the ED for acute respiratory failure precipitated by acute pulmonary edema from hypertensive crisis. The patient is 66 yo M from [facility].? BIBA early this morning bec of shortness of breath since earlier today.? PMHx of end-stage renal disease, coronary disease status post CABG, hypertension, diabetes, bilateral [id number] amputations. The patient was quite hypertensive in the ED, 203/101, and tachypneic in respiratory distress, and quickly decompensated, leading to emergent intubat ion.? White count was 10.9, BUN/creatinine 38/7.8, bicarb 23, potassium 4.2, troponin 74, BNP 1948.? Chest x-ray showed acute pulmonary edema.? The patient was admitted to the ICU. A central line was placed and the patient was treated with labetalol and his BP came down easily.? He underwent HD this morning with no significant problems. ?Extubated shortly post dialysis.? Now awake, breathing easy with Sat 93-95% on room air. HR 100, SR.? BP 145/76. ?Afebrile.? No JVD at 30?.? Chest is mostly clear, no rales.? Normal expiratory phase.? Soft heart tones, I heard no murmur or gallops.? The abdomen is distended and tympanitic.? A KUB shows multiple dilated loops of bowel.? The patient is complaining of nausea.? He has no peripheral edema. LABORATORY DATA:? Below.? Notably the 2nd troponin was 516.? A repeat EKG this morning showed lateral T-wave inversion, new from this morning's EKG. Echo being done now by the tech, interpreted by me:? Marked global LV dysfunction with apical akinesis, and septal and anterior hypokinesis, with EF in the neighborhood of 25-30%.? RV is probably normal sized but hypokinetic.? No significant valvular disease.? IVC measured 1.3cm with minimal inspiratory collapse. IMPRESSION: ?This is a 66-year-old man with underlying end-stage renal disease, coronary artery disease status post CABG, hypertension, diabetes and peripheral vascular disease with bilateral above knee amputations. 1. Hypertensive crisis. 2. ?? Acute coronary syndrome.? I?ve asked Dr. Quinonez to see him. 3. Acute pulmonary edema - 2? above. 4. Acute respiratory failure - 2? above.? Resolved. We put him on aspirin, statin, and heparin.? And I?m giving him metoprolol now.? Nothing else to do at this time. Stable for transfer [place] [facility] [place] I will sign out to the hospitalists. Critical Care Time (minutes): 0 Physical Exam Vital Signs: Vital Signs: Last Vital Signs Temp 98.2 F 05/23/22 13:00 Pulse 99 05/23/22 14:00 Resp 19 05/23/22 14:00 BP 176/87 H 05/23/22 15:05 Pulse Ox 100 05/23/22 14:00 O2 Del Method 05/23/22 14:00 FiO2 25 05/23/22 14:00 BMI result Body Mass Index 28.0 Objective Data Labs CBC & Chem 7: 05/23/22 02:15 05/23/22 02:15 Labs: Laboratory Results - last 24 hr 05/23/22 05/23/22 05/23/22 01:56 02:15 02:15 WBC 10.9 H RBC 3.07 L Hgb 9.3 L Hct 28.0 L MCV 91.2 MCH 30.3 MCHC 33.2 RDW 13.8 Plt Count 141 L MPV 12.6 H Immature Gran % (Auto) 0.4 Neut % (Auto) 65.1 Lymph % (Auto) 22.3 [place] % (Auto) 7.8 Eos % (Auto) 4.0 Baso % (Auto) 0.4 Lymph # (Auto) 2.4 [place] # (Auto) 0.9 Eos # (Auto) 0.4 Baso # (Auto) 0.0 Abs Immat Gran (auto) 0.04 H Absolute Neuts (auto) 7.1 Absolute Nucleated RBC 0.000 Nucleated RBC % (auto) 0.0 PT 14.8 H INR 1.3 H aPTT Heparin Protocol VBG pH VBG pCO2 VBG pO2 VBG HCO3 VBG O2 Saturation VBG Base Excess Sodium Potassium Chloride Carbon Dioxide Anion Gap BUN Creatinine Estim Creat Clear Calc Estimated GFR POC Glucose 254 H Random Glucose Calcium Total Bilirubin AST ALT Alkaline Phosphatase Troponin I High Sens B-Natriuretic Peptide Total Protein Albumin COVID-19 (ELENA) COVID-19 Clin Com Hep Bs Antigen Hep Bs Antigen (2) Hep Bs Antibody Hep B Core Total Ab Hep B Core IgM Ab 05/23/22 05/23/22 05/23/22 02:15 02:15 02:15 WBC RBC Hgb Hct MCV MCH MCHC RDW Plt Count MPV Immature Gran % (Auto) Neut % (Auto) Lymph % (Auto) [place] % (Auto) Eos % (Auto) Baso % (Auto) Lymph # (Auto) [place] # (Auto) Eos # (Auto) Baso # (Auto) Abs Immat Gran (auto) Absolute Neuts (auto) Absolute Nucleated RBC Nucleated RBC % (auto) PT INR aPTT Heparin Protocol VBG pH VBG pCO2 VBG pO2 VBG HCO3 VBG O2 Saturation VBG Base Excess Sodium 139 Potassium 4.2 Chloride 102 Carbon Dioxide 23 Anion Gap 18 BUN 38 H Creatinine 7.89 H* Estim Creat Clear Calc 7.2 Estimated GFR 7 POC Glucose Random Glucose 252 H Calcium 7.5 L Total Bilirubin 0.9 AST 28 ALT 16 Alkaline Phosphatase 106 Troponin I High Sens 74.3 H B-Natriuretic Peptide Total Protein 6.9 Albumin 3.7 COVID-19 (ELENA) Negative COVID-19 Clin Com See Note Hep Bs Antigen Hep Bs Antigen (2) Hep Bs Antibody Hep B Core Total Ab Hep B Core IgM Ab 05/23/22 05/23/22 05/23/22 02:15 05:05 06:15 WBC RBC Hgb Hct MCV MCH MCHC RDW Plt Count MPV Immature Gran % (Auto) Neut % (Auto) Lymph % (Auto) [place] % (Auto) Eos % (Auto) Baso % (Auto) Lymph # (Auto) [place] # (Auto) Eos # (Auto) Baso # (Auto) Abs Immat Gran (auto) Absolute Neuts (auto) Absolute Nucleated RBC Nucleated RBC % (auto) PT INR aPTT Heparin Protocol VBG pH VBG pCO2 VBG pO2 VBG HCO3 VBG O2 Saturation VBG Base Excess Sodium Potassium Chloride Carbon Dioxide Anion Gap BUN Creatinine Estim Creat Clear Calc Estimated GFR POC Glucose 200 H Random Glucose Calcium Total Bilirubin AST ALT Alkaline Phosphatase Troponin I High Sens 516.8 H* D B-Natriuretic Peptide 1948 H Total Protein Albumin COVID-19 (ELENA) COVID-19 Clin Com Hep Bs Antigen Hep Bs Antigen (2) Hep Bs Antibody Hep B Core Total Ab Hep B Core IgM Ab 05/23/22 05/23/22 05/23/22 06:17 07:51 11:04 WBC RBC Hgb Hct MCV MCH MCHC RDW Plt Count MPV Immature Gran % (Auto) Neut % (Auto) Lymph % (Auto) [place] % (Auto) Eos % (Auto) Baso % (Auto) Lymph # (Auto) [place] # (Auto) Eos # (Auto) Baso # (Auto) Abs Immat Gran (auto) Absolute Neuts (auto) Absolute Nucleated RBC Nucleated RBC % (auto) PT INR aPTT Heparin Protocol 35.0 L VBG pH 7.34 VBG pCO2 36 VBG pO2 43 VBG HCO3 20 L VBG O2 Saturation 70.0 VBG Base Excess -4.7 Sodium Potassium Chloride Carbon Dioxide Anion Gap BUN Creatinine Estim Creat Clear Calc Estimated GFR POC Glucose Random Glucose Calcium Total Bilirubin AST ALT Alkaline Phosphatase Troponin I High Sens B-Natriuretic Peptide Total Protein Albumin COVID-19 (ELENA) COVID-19 Clin Com Hep Bs Antigen Not Reportable Hep Bs Antigen (2) NEGATIVE Hep Bs Antibody REACTIVE Hep B Core Total Ab Reactive Hep B Core IgM Ab Cancelled 05/23/22 05/23/22 05/23/22 12:09 14:03 14:04 WBC RBC Hgb Hct MCV MCH MCHC RDW Plt Count MPV Immature Gran % (Auto) Neut % (Auto) Lymph % (Auto) [place] % (Auto) Eos % (Auto) Baso % (Auto) Lymph # (Auto) [place] # (Auto) Eos # (Auto) Baso # (Auto) Abs Immat Gran (auto) Absolute Neuts (auto) Absolute Nucleated RBC Nucleated RBC % (auto) PT INR aPTT Heparin Protocol 90.5 H D VBG pH VBG pCO2 VBG pO2 VBG HCO3 VBG O2 Saturation VBG Base Excess Sodium Potassium Chloride Carbon Dioxide Anion Gap BUN Creatinine Estim Creat Clear Calc Estimated GFR POC Glucose 67 72 Random Glucose Calcium Total Bilirubin AST ALT Alkaline Phosphatase Troponin I High Sens B-Natriuretic Peptide Total Protein Albumin COVID-19 (ELENA) COVID-19 Clin Com Hep Bs Antigen Hep Bs Antigen (2) Hep Bs Antibody Hep B Core Total Ab Hep B Core IgM Ab Quality Stroke Does the patient have a stroke diagnosis?: No VTE Prior VTE?: No VTE Risk Level:: Medical - moderate - high VTE Device Contraindication: N/A - Device Ordered VTE Drug Contraindication: N/A - Med Ordered
[2022-05-23 16:26] LABS: Glucose, Whole Blood 74 mg/dL (60-115)
[2022-05-23 20:43] LABS: PTT Heparin Drip 55.5 SEC (53-77.9)
[2022-05-23 21:13] LABS: Glucose, Whole Blood 82 mg/dL (60-115)
[2022-05-23 22:46] LABS: Glucose, Whole Blood 168 mg/dL (60-115)
[2022-05-24] VITALS: BP 134/84; PULSE 104; RESP 20; TEMP 37.2; O2SAT 93
--- NOTE | 2022-05-24 02:19 | CONS_ITS ---
DATE OF SERVICE: REASON FOR CONSULTATION: I was asked to see the patient to assist in evaluation and management of patient's dialysis needs in the setting of presenting to the hospital with acute shortness of breath, requiring intubation. HISTORY OF PRESENT ILLNESS: In summary, the patient is a 66-year-old ESRD patient who presented to the hospital with increasing shortness of breath. He does have ESRD, is dialyzed 3 times a week. He was markedly hypertensive on presentation to the emergency room and the ER team felt it was unsafe respiratory zavala, not to intubated, so he got intubated. His blood pressure has improved. He remains on the ventilator and hopefully get extubated later today. PAST MEDICAL HISTORY: Notable for ESRD, coronary artery disease status post CABG, hypertension, diabetes, bilateral AKAs. He has an AV fistula in his right upper extremity. MEDICATIONS: On admission, is unclear, we need to track down where he is normally on. Current meds as noted in the MAR. ALLERGIES: HE IS LISTED HAVING NO KNOWN DRUG ALLERGIES, BUT AGAIN WE NEED TO TRACK THIS DOWN. SOCIAL HISTORY: Unable to obtain. REVIEW OF SYSTEMS: Unable to obtain. FAMILY HISTORY: Unable to obtain. PHYSICAL EXAMINATION: VITAL SIGNS: Presently 128/70 with heart rate in the 70s. Head: Atraumatic. LUNGS: He is on mechanical ventilation. Breath sounds bilaterally. CARDIAC: Regular rate. ABDOMEN: Soft. EXTREMITIES: Bilateral AKA. He has right upper extremity bruit and thrill. LABORATORY DATA: Hemoglobin 9.3, hematocrit 28, white count 10.9. Potassium 4.2. Chest x-ray on admission showed evidence of pulmonary edema. IMPRESSION: 66-YEAR-OLD END-STAGE RENAL DISEASE PATIENT ADMITTED TO THE HOSPITAL WITH RESPIRATORY FAILURE, SEVERE HYPERTENSION. 1. End-stage renal disease with dialysis with as tolerated. 2. Severe hypertension. Need to review his medications as this may be acute pulmonary edema. SUGGESTIONS: At this time include dialysis today, which he is currently receiving regarding his normal dialysis day as well as his medications. We will follow . MD LEONCIO Cardenas/LAKESHIA / [phone]
[2022-05-24 02:21] LABS: PTT Heparin Drip 50.6 SEC (53-77.9)
[2022-05-24] MEDS: Heparin Sodium,Porcine 5,000 UNIT/ML VIAL 2600 UNIT IVPUSH ×2 (03:00→15:54)
[2022-05-24 03:30] VITALS: BP 176/95; PULSE 108; RESP 20; TEMP 37.2; O2SAT 95
[2022-05-24] MEDS: Levothyroxine Sodium 175 MCG TABLET PO (05:30)
[2022-05-24 07:27] LABS: Anion Gap 19 (12-20); Blood Urea Nitrogen 26 mg/dL (9-16); Calcium 8.9 mg/dL (8.4-10.2); Carbon Dioxide 25 mmol/L (22-29); Chloride 96 mmol/L (96-108); Creatinine Clr Calc Pharmacy 9.6; Estimated Glomerular Filt Rate 10; Glucose Random 84 mg/dL (60-115); Magnesium 1.8 mg/dL (1.6-2.6); Phosphorus 3.2 mg/dL (2.7-4.5); Potassium 4.4 mmol/L (3.3-5.1); Sodium 136 mmol/L (135-145)
[2022-05-24 07:49] LABS: Troponin-I High Sensitivity 1368.1 ng/L (<3.5-35.0)
[2022-05-24] MEDS: Heparin Sodium,Porcine/1/2NS 25,000 UNIT/250 ML IV.SOLN 7.8 UNIT IVCONT (07:52)
[2022-05-24] MEDS: Sevelamer Carbonate Tablet 800 MG TABLET PO ×2 (07:56→12:06)
[2022-05-24] MEDS: Isosorbide Mononitrate 30 MG TAB.ER.24H PO (07:56)
[2022-05-24] MEDS: carvediloL 12.5 MG TABLET 50 MG PO (07:56)
[2022-05-24] MEDS: Valsartan 320 MG TABLET PO (07:57)
[2022-05-24] MEDS: NIFEdipine ER 90 MG TAB.ER.24 PO (07:57)
[2022-05-24] MEDS: Docusate Sodium 100 MG CAPSULE PO (07:57)
[2022-05-24] MEDS: Atorvastatin Calcium 40 MG TABLET G-TUBE (07:57)
[2022-05-24] MEDS: NIFEdipine ER 30 MG TAB.ER.24 PO (07:57)
[2022-05-24] MEDS: Aspirin 81 MG TAB.CHEW G-TUBE (07:58)
[2022-05-24] MEDS: Gabapentin 100 MG CAPSULE PO (07:58)
[2022-05-24] MEDS: Multivitamin TABLET 1 TAB PO (07:58)
[2022-05-24 08:00] VITALS: BP 125/63; PULSE 89; RESP 19; TEMP 36.6; O2SAT 98
[2022-05-24 08:08] LABS: Glucose, Whole Blood 77 mg/dL (60-115)
[2022-05-24 09:21] LABS: PTT Heparin Drip 87.9 SEC (53-77.9)
[2022-05-24] MEDS: Dextrose 50 % 25 GM/50 ML SYRINGE IVPUSH (11:12)
[2022-05-24 11:22] VITALS: BP 112/57; PULSE 78; RESP 20; TEMP 36.4; O2SAT 97
[2022-05-24 11:32] LABS: Glucose, Whole Blood 77 mg/dL (60-115)
--- NOTE | 2022-05-24 12:22 | PM.PNCARD ---
Subjective Subjective Date of Service: 05/24/22 Interval history: He has been extubated and moved to the floor. States he is doing okay. Review of Systems Review of Systems Yes all other systems are reviewed and are negative Constitutional: Reports as per HPI Eyes: Reports as per HPI Reports as per HPI Cardiovascular: Reports as per HPI, Denies acrocyanosis, Denies cool extremities, Denies chest pain, Denies leg edema, Denies lightheadedness, Denies palpitations and Denies dyspnea Respiratory: Reports as per HPI, Reports no additional respiratory complaints and Denies dyspnea Gastrointestinal: Reports as per HPI and Reports no additional gastrointestinal complaints Genitourinary: Reports no additional male genitourinary complaints and Reports as per HPI Musculoskeletal: Reports no additional musculoskeletal complaints and Reports as per HPI Skin/Breast: Reports system reviewed and no additional complaints, except as docu Reports system reviewed and no additional complaints, except as documented and Reports as per HPI Psychiatric: Reports no additional psychiatric complaints and Reports as per HPI Endocrine: Reports no additional endocrine complaints, Reports as per HPI and Denies palpitations Hematologic/Lymphatic: Reports no additional hematologic/lymphatic complaints and Reports as per HPI Allergic/Immunologic: Reports no additional allergic/immunologic complaints and Reports as per HPI Physical Exam Vital Signs: Last Vital Signs Temp 97.5 F 05/24/22 11:22 Pulse 78 05/24/22 11:22 Resp 20 05/24/22 11:22 BP 112/57 L 05/24/22 11:22 Pulse Ox 97 05/24/22 11:22 O2 Del Method 05/24/22 11:22 O2 Flow Rate 2 05/24/22 11:22 FiO2 25 05/23/22 14:00 BMI result Body Mass Index 28.0 Const General: comfortable and no acute distress Orientation/consciousness: patient oriented x3 HEENT Other: Unremarkable Head: Yes normal to inspection Neck Neck: Yes normal visual inspection Chest Chest palpation & inspection: normal inspection of the chest Resp Other: Few inspiratory crackles Cardio Palpation: normal PMI Heart sounds: S1 normal heart sound present, S2 normal heart sound present, no gallops, Murmur heart sound present systolic early, II/ and at the right sternal border and no rubs GI Palpation (GI): Soft to palpation Back/Spine/Pelvis Other: unremarkable Skin General skin exam: no rashes or lesions noted Neuro General: patient oriented x3 Extrem Other: Bilateral about knee amputation. Psych Mental Status: mental status grossly normal Objective Labs and Meds Result diagrams: 05/23/22 02:15 05/24/22 06:30 Lab results: Laboratory Results - last 24 hr 05/23/22 05/23/22 05/23/22 11:04 14:03 14:04 aPTT Heparin Protocol 90.5 H D Sodium Potassium Chloride Carbon Dioxide Anion Gap BUN Creatinine Estim Creat Clear Calc Estimated GFR POC Glucose 72 Random Glucose Calcium Phosphorus Magnesium Troponin I High Sens Hep Bs Antigen Not Reportable Hep Bs Antigen (2) NEGATIVE Hep Bs Antibody REACTIVE Hep B Core Total Ab Reactive Hep B Core IgM Ab Cancelled 05/23/22 05/23/22 05/23/22 16:21 20:17 21:08 aPTT Heparin Protocol 55.5 D Sodium Potassium Chloride Carbon Dioxide Anion Gap BUN Creatinine Estim Creat Clear Calc Estimated GFR POC Glucose 74 82 Random Glucose Calcium Phosphorus Magnesium Troponin I High Sens Hep Bs Antigen Hep Bs Antigen (2) Hep Bs Antibody Hep B Core Total Ab Hep B Core IgM Ab 05/23/22 05/24/22 05/24/22 22:42 02:05 06:30 aPTT Heparin Protocol 50.6 L Sodium 136 Potassium 4.4 Chloride 96 Carbon Dioxide 25 Anion Gap 19 BUN 26 H Creatinine 5.94 H* Estim Creat Clear Calc 9.6 Estimated GFR 10 POC Glucose 168 H Random Glucose 84 D Calcium 8.9 D Phosphorus 3.2 Magnesium 1.8 Troponin I High Sens Hep Bs Antigen Hep Bs Antigen (2) Hep Bs Antibody Hep B Core Total Ab Hep B Core IgM Ab 05/24/22 05/24/22 05/24/22 06:30 07:38 09:07 aPTT Heparin Protocol 87.9 H D Sodium Potassium Chloride Carbon Dioxide Anion Gap BUN Creatinine Estim Creat Clear Calc Estimated GFR POC Glucose 77 Random Glucose Calcium Phosphorus Magnesium Troponin I High Sens 1368.1 H* D Hep Bs Antigen Hep Bs Antigen (2) Hep Bs Antibody Hep B Core Total Ab Hep B Core IgM Ab 05/24/22 11:04 aPTT Heparin Protocol Sodium Potassium Chloride Carbon Dioxide Anion Gap BUN Creatinine Estim Creat Clear Calc Estimated GFR POC Glucose 77 Random Glucose Calcium Phosphorus Magnesium Troponin I High Sens Hep Bs Antigen Hep Bs Antigen (2) Hep Bs Antibody Hep B Core Total Ab Hep B Core IgM Ab Imaging Radiologist's impression: Impressions KUB X-Ray 05/23/22 15:01 IMPRESSION: Nonspecific, nonobstructive bowel gas pattern. Progress Note: A&P Assessment and plan (1) NSTEMI (non-ST elevated myocardial infarction): Status: Acute (2) Hypertensive emergency: Status: Acute (3) End stage chronic kidney disease: Status: Acute (4) Acute hypoxemic respiratory failure: Status: Acute Plan Echocardiogram with LVEF 20-25%. LAD territory wall motion abnormalities. Also had moderate mitral annular calcification mild aortic stenosis. He clearly had an NSTEMI but not clear if it is secondary or primary. Discussed about findings with patient and he wants everything done. Hence recommend diagnostic cardiac catheterization for further evaluation of coronary status. In the interim, continue IV heparin, aspirin, statins. Otherwise, he is already on carvedilol. Also on valsartan. Discussed with Dr. Mosley. Will transfer to [facility]. Time Spent With Patient Time: Total time spent is greater than 50% in coordination of care (as documented) at patient's floor/unit and/or counseling patient: 40min Progress Note: Quality Stroke Does the patient have a stroke diagnosis?: No Procedures Date of Service Date of Service: 05/24/22
--- NOTE | 2022-05-24 13:26 | P.DS_ITS ---
DS: Providers Provider Date of Service: 05/24/22 Date of admission: 05/23/22 03:41 Primary care physician: Ashley Byrne MD Consults: 05/23/22 03:45 Consult to Nephrology Stat Consulting Provider: Nima Reyes Reason for consultation: CKD HD Has provider been notified: No 05/23/22 09:00 Consult to Cardiology Routine Consulting Provider: Jaime Quinonez Reason for consultation: AMI Has provider been notified: Yes DS: Diagnosis Discharge Diagnosis (1) NSTEMI (non-ST elevated myocardial infarction): Status: Acute (2) Hypertensive emergency: Status: Acute (3) End stage chronic kidney disease: Status: Acute (4) Acute hypoxemic respiratory failure: Status: Acute (5) Pulmonary edema: Status: Acute DS: Summary Hospital Course Hospital Course: admission note HPI Patient is seen in the emergency room complaints of shortness of breath since earlier today, [facility], reportedly he has a history of end-stage renal disease, coronary disease status post CABG, hypertension, diabetes, bilateral [id number] amputations, otherwise unknown. According to the ER physician, the patient quickly deteriorated as the patient presented with a simple mask oxygen supplementation and was quite hypertensive with systolic blood pressure over 204, tachypneic, appear to be in distress, Lasix was given and the patient quickly decompensated leading to emergent intubation. His laboratory survey reveals a white count of 10.9, hemoglobin 9.3, hematocrit 28, platelets 141, sodium 139, potassium 4.2, chloride 102, carbon dioxide 23, BUN 38, creatinine 7.89, glucose 252.? COVID negative, patient is BNP is 1948, troponin 74.3, his chest x-ray did show bilateral and bibasilar heterogeneous opacities suspicious for pulmonary edema, to my view these also has cardiomegaly and small pleural effusion on the right greater on left.? The patient did have a attempted right IJ CVL placement which went into the right subclavian vein. ?No pneumothorax reported or noted.? The patient will be transferred to ICU for further treatment.? There is no family available and no further history known from the patient. ? Hospital course The patient was admitted to the ICU after being intubated in the emergency for acute respiratory failure secondary to pulmonary edema from hypertensive crisis. Noted to have blood pressure of 200/100 the emergency with tachypnea and respiratory distress. Chest x-ray showed evidence of pulmonary edema. Responded well to treatment with labetalol as blood pressure went down. Hemodialysis was done early childhood associate urgently with removal of extra fluid and improvement of the blood pressures. Extubated after dialysis with good tolerance 2 L of oxygen with saturation mid 90s. Troponin noted to be increasing during the hospital stay from 74, 516 and a early childhood associate today of 1300. Evaluated by Cardiology team who recommended starting heparin drip for NSTEMI along with aspirin, carvedilol and statin. EKG showed lateral T-wave inversion. Echocardiogram with LVEF 20-25%.? LAD territory wall motion abnormalities.? Also had moderate mitral annular calcification mild aortic stenosis. Recommendation to transfer to [facility] for further evaluation cardiac angiogram by Cardiology. Time Spent with Patient Time attestation: Total time spent providing and/or coordinating discharge services: Discharge coordination time: Greater than 30 minutes Quality: Safe Use of Opioids Does Pt have an Active Cancer Diagnosis on the Problem List?: No Quality: Stroke Does the patient have a stroke diagnosis?: No Physical Exam Vital Signs: Vital Signs: Last Vital Signs Temp 97.5 F 05/24/22 11:22 Pulse 78 05/24/22 11:22 Resp 20 05/24/22 11:22 BP 112/57 L 05/24/22 11:22 Pulse Ox 97 05/24/22 11:22 O2 Del Method 05/24/22 11:22 O2 Flow Rate 2 05/24/22 11:22 FiO2 25 05/23/22 14:00 BMI result Body Mass Index 28.0 Const: Other: Constitutional : Alert, interactive, not in distress Neck : Normal inspection, Supple Cardiovascular : RRR, no JVP, no lower extremity edema Respiratory : fair bilateral air entry, no crackles, wheezes or rhonchi Gastrointestinal: soft, lax, Normal bowel sounds, Non tender Skin : Warm, Dry muscular: bilateral above knee amputation lower extremities Neurological : Alert & oriented to self and place, No focal deficit , CN 2-12 within normal DS: Data Data Completed and Pending Labs on day of discharge: Laboratory Results - last 24 hr 05/23/22 05/23/22 05/23/22 11:04 14:03 14:04 aPTT Heparin Protocol 90.5 H D Sodium Potassium Chloride Carbon Dioxide Anion Gap BUN Creatinine Estim Creat Clear Calc Estimated GFR POC Glucose 72 Random Glucose Calcium Phosphorus Magnesium Troponin I High Sens Hep Bs Antigen (2) NEGATIVE Hep B Core Total Ab Reactive Hep B Core IgM Ab Cancelled 05/23/22 05/23/22 05/23/22 16:21 20:17 21:08 aPTT Heparin Protocol 55.5 D Sodium Potassium Chloride Carbon Dioxide Anion Gap BUN Creatinine Estim Creat Clear Calc Estimated GFR POC Glucose 74 82 Random Glucose Calcium Phosphorus Magnesium Troponin I High Sens Hep Bs Antigen (2) Hep B Core Total Ab Hep B Core IgM Ab 05/23/22 05/24/22 05/24/22 22:42 02:05 06:30 aPTT Heparin Protocol 50.6 L Sodium 136 Potassium 4.4 Chloride 96 Carbon Dioxide 25 Anion Gap 19 BUN 26 H Creatinine 5.94 H* Estim Creat Clear Calc 9.6 Estimated GFR 10 POC Glucose 168 H Random Glucose 84 D Calcium 8.9 D Phosphorus 3.2 Magnesium 1.8 Troponin I High Sens Hep Bs Antigen (2) Hep B Core Total Ab Hep B Core IgM Ab 05/24/22 05/24/22 05/24/22 06:30 07:38 09:07 aPTT Heparin Protocol 87.9 H D Sodium Potassium Chloride Carbon Dioxide Anion Gap BUN Creatinine Estim Creat Clear Calc Estimated GFR POC Glucose 77 Random Glucose Calcium Phosphorus Magnesium Troponin I High Sens 1368.1 H* D Hep Bs Antigen (2) Hep B Core Total Ab Hep B Core IgM Ab 05/24/22 11:04 aPTT Heparin Protocol Sodium Potassium Chloride Carbon Dioxide Anion Gap BUN Creatinine Estim Creat Clear Calc Estimated GFR POC Glucose 77 Random Glucose Calcium Phosphorus Magnesium Troponin I High Sens Hep Bs Antigen (2) Hep B Core Total Ab Hep B Core IgM Ab Imaging CT scan - head: Radiologist's impression: ITS Impressions Chest X-Ray 05/23/22 01:55 IMPRESSION: Bilateral perihilar and basilar heterogeneous opacities suspicious for edema. Small pleural effusions, right greater than left. Chest X-Ray 05/23/22 03:15 IMPRESSION: 1. Endotracheal tube tip approximately 0.5 cm above the oziel. 2. Right IJ central line tip coursing into the region of the right axillary vein. 3. Persistent perihilar and basilar opacities suspicious for edema. This critical result was discussed with Lawrence Yanez MD on 05/23/2022 4:05 AM, and it was ascertained that the content and urgency of the report was understood at the time of direct communication. Chest X-Ray 05/23/22 05:15 IMPRESSION: Left IJ central line tip in the region of the distal SVC. Enteric tube tip in the region of the gastroesophageal junction; advancement recommended by at least 8 cm. Persistent bilateral opacities suspicious for edema and small pleural effusions. KUB X-Ray 05/23/22 15:01 IMPRESSION: Nonspecific, nonobstructive bowel gas pattern. Discharge Plan Discharge Patient Disposition: Critical Access Hospital Hospital Discharge Diagnosis: NSTEMI Hypertensive emergency Pulmonary edema Referrals: Ashley Byrne MD [Primary Care Provider] - 1 Week Discharge Medications: New aspirin 81 mg Tablet,Chewable 81 mg G-tube DAILY 1 Days Qty: 1 0RF heparin(porcine) in 0.45% NaCl 25,000 unit/250 mL Parenteral Solution 25,000 unit continuous IV infusion .Q0M 1 Days Qty: 1 0RF Continued isosorbide mononitrate 30 mg tablet extended release 24 hr 1 tab PO DAILY atorvastatin 80 mg Tablet 80 mg PO BEDTIME brimonidine 0.2 % Drops 1 drp OPHTHALMIC (EYE) BID carvedilol 25 mg Tablet 50 mg PO BID Protocol: Hold for SBP< HOLD for SBP < : 110 Rx Instructions: must administer with a meal/food clonidine HCl 0.2 mg Tablet See Rx Instructions .ROUTE .COMPLEX Rx Instructions: TID ON 0.2 mg orally clonidine HCl 0.2 mg Tablet 0.2 mg PO MOWE@0900,2100 Rx Instructions: ALTERNATES 3 TIMES A DAY ON AND TWICE A DAY ON gabapentin 100 mg Capsule 100 mg PO DAILY levothyroxine 175 mcg Tablet 175 mcg PO DAILY@0600 minoxidil 10 mg Tablet 10 mg PO DAILY Protocol: Hold for SBP< HOLD for SBP < : 110 nifedipine 30 mg Tablet Extended Release 30 mg PO DAILY nifedipine 90 mg Tablet Extended Release 24hr 90 mg PO DAILY Protocol: Hold for SBP< HOLD for SBP < : 110 pantoprazole 40 mg Tablet,Delayed Release (Dr/Ec) 40 mg PO BID sevelamer carbonate 800 mg Tablet 800 mg PO TIDWM Rx Instructions: must administer with a meal/food valsartan 320 mg Tablet 320 mg PO DAILY Protocol: Hold for SBP< HOLD for SBP < : 110 acetaminophen 325 mg Tablet 650 mg PO Q6H PRN (Reason: Pain (Scale Score 4-6)) acetaminophen 650 mg Suppository 650 mg IL Q6H PRN (Reason: Pain (Scale Score 4-6)) bisacodyl 10 mg Suppository 10 mg IL DAILY PRN (Reason: IF MOM INEFFECTIVE FOR BM) docusate sodium 100 mg Capsule 100 mg PO BID vitamin B complex Tablet 1 tab PO DAILY ergocalciferol (vitamin D2) 1,250 mcg (50,000 unit) Capsule 1,250 mcg PO QMONTH Diet: NDD2 for now Activity on Discharge: As tolerated Stand Alone Forms: Patient Portal Discharge page Care Plan Goals: Read below Health Concerns: Read below Plan of Treatment: Read below Assessment: you were admitted to the hospital for altered mentation, difficulty breathing as you were found to have significant high blood pressure with fluids in your lungs requiring intubation and admission to ICU with urgent dialysis done with good response as you were extubated and your blood pressure became under better control. Blood work was consistent with heart attack that was evaluated by Cardiology team who recommended transfer to [facility] for further evaluation and Cardiac angiogram.
--- NOTE | 2022-05-24 13:56 | MHC.CM.PN ---
IMM 05/24/22 Female 70 Patient discharged [facility]. ALS transfer for cardiac cath.
--- NOTE | 2022-05-24 13:59 | MHC.CM.PN ---
Male 66 Patient discharged to [facility] today. Acute Hospital transfer via BLS.
[2022-05-24 15:29] VITALS: BP 129/60; PULSE 72; RESP 18; TEMP 36.5; O2SAT 97
[2022-05-24 15:39] LABS: PTT Heparin Drip 52.9 SEC (53-77.9)
[2022-05-24 16:22] LABS: Glucose, Whole Blood 79 mg/dL (60-115)
--- NOTE | 2022-05-24 16:39 | PM.PNNEP ---
Subjective Subjective Date of Service: 05/24/22 Interval history: Seen and examined, events noted Breathing comfortably He is from the [place] and get his HD there usually Card eval inprogress Physical Exam Vital Signs: Vital Signs: Last Vital Signs Temp 97.7 F 05/24/22 15:29 Pulse 72 05/24/22 15:29 Resp 18 05/24/22 15:29 BP 129/60 05/24/22 15:29 Pulse Ox 97 05/24/22 15:29 O2 Del Method 05/24/22 15:29 O2 Flow Rate 3 05/24/22 15:29 FiO2 25 05/23/22 14:00 BMI result Body Mass Index 28.0 Const: Other: Constitutional : Alert, interactive, not in distress Neck : Normal inspection, Supple Cardiovascular : RRR, no JVP, no lower extremity edema Respiratory : fair bilateral air entry, no crackles, wheezes or rhonchi Gastrointestinal: soft, lax, Normal bowel sounds, Non tender Skin : Warm, Dry muscular: bilateral above knee amputation lower extremities Neurological : Alert & oriented to self and place, No focal deficit , CN 2-12 within normal General: comfortable and no acute distress Orientation/consciousness: patient oriented x3 HEENT: Other: Unremarkable Head: Yes normal to inspection Neck: Neck: Yes normal visual inspection Chest: Chest palpation & inspection: normal inspection of the chest Resp: Other: Few inspiratory crackles Cardio: Palpation: normal PMI Heart sounds: S1 normal heart sound present, S2 normal heart sound present, no gallops, Murmur heart sound present systolic early, II/ and at the right sternal border and no rubs GI: Palpation (GI): Soft to palpation Back/Spine/Pelvis: Other: unremarkable Skin: General skin exam: no rashes or lesions noted Neuro: General: patient oriented x3 Extrem: Other: Bilateral about knee amputation. Psych: Mental Status: mental status grossly normal Objective Data Labs CBC & Chem 7: 05/23/22 02:15 05/24/22 06:30 Labs: Laboratory Results - last 24 hr 05/23/22 05/23/22 05/23/22 20:17 21:08 22:42 aPTT Heparin Protocol 55.5 D Sodium Potassium Chloride Carbon Dioxide Anion Gap BUN Creatinine Estim Creat Clear Calc Estimated GFR POC Glucose 82 168 H Random Glucose Calcium Phosphorus Magnesium Troponin I High Sens 05/24/22 05/24/22 05/24/22 02:05 06:30 06:30 aPTT Heparin Protocol 50.6 L Sodium 136 Potassium 4.4 Chloride 96 Carbon Dioxide 25 Anion Gap 19 BUN 26 H Creatinine 5.94 H* Estim Creat Clear Calc 9.6 Estimated GFR 10 POC Glucose Random Glucose 84 D Calcium 8.9 D Phosphorus 3.2 Magnesium 1.8 Troponin I High Sens 1368.1 H* D 05/24/22 05/24/22 05/24/22 07:38 09:07 11:04 aPTT Heparin Protocol 87.9 H D Sodium Potassium Chloride Carbon Dioxide Anion Gap BUN Creatinine Estim Creat Clear Calc Estimated GFR POC Glucose 77 77 Random Glucose Calcium Phosphorus Magnesium Troponin I High Sens 05/24/22 05/24/22 15:02 16:19 aPTT Heparin Protocol 52.9 L D Sodium Potassium Chloride Carbon Dioxide Anion Gap BUN Creatinine Estim Creat Clear Calc Estimated GFR POC Glucose 79 Random Glucose Calcium Phosphorus Magnesium Troponin I High Sens Procedures Date of Service Date of Service: 05/24/22 Assessment & Plan Assessment and plan (1) NSTEMI (non-ST elevated myocardial infarction): Status: Acute (2) Hypertensive emergency: Status: Acute (3) End stage chronic kidney disease: Status: Acute (4) Acute hypoxemic respiratory failure: Status: Acute (5) Pulmonary edema: Status: Acute Plan 1. ESRD: [facility] 2. Resp Failure: d/t hypervol and severe HTN 3. CAD ? being eval by cards 4. Anemia 5. MBD of CKD REC: cont HD 3x/wk; meds reviewed. Time Spent With Patient Time: Total time spent is greater than 50% in coordination of care (as documented) at patient's floor/unit and/or counseling patient: Progress Note: Quality Stroke Does the patient have a stroke diagnosis?: No
== END 2022-05-24 17:59 | disposition short-term general hospital (02) | DRG 190 ==
LOC: HO.ED 03:40 → HO.EDOVER 04:25 → HO.ICU 04:42 → HO.IMC 17:01
PROVIDERS: Anesthesiology; Internal Medicine Nephrology; Admitting Provider Physician Assistant Medical; Emergency Provider Internal Medicine; PCP Internal Medicine; Visit Provider Student in an Organized Health Care Education/Training Program
DX: I21.4 Non-ST elevation (NSTEMI) myocardial infarction (principal); J96.01 Acute respiratory failure with hypoxia; J81.0 Acute pulmonary edema; I12.0 Hypertensive chronic kidney disease with stage 5 chronic kidney disease or end stage renal disease; N18.6 End stage renal disease; D63.1 Anemia in chronic kidney disease; I16.1 Hypertensive emergency; Z66 Do not resuscitate; E11.22 Type 2 diabetes mellitus with diabetic chronic kidney disease; E11.65 Type 2 diabetes mellitus with hyperglycemia; N25.0 Renal osteodystrophy; I35.0 Nonrheumatic aortic (valve) stenosis; I25.10 Atherosclerotic heart disease of native coronary artery without angina pectoris; Z95.1 Presence of aortocoronary bypass graft; Z20.822 Contact with and (suspected) exposure to COVID-19; Z99.2 Dependence on renal dialysis; Z89.612 Acquired absence of left leg above knee; Z89.611 Acquired absence of right leg above knee; Z79.82 Long term (current) use of aspirin; Z79.890 Hormone replacement therapy; Z79.899 Other long term (current) drug therapy
CPT/HCPCS: 36415; 71045; 74018; 80048; 80053; 82803; 82947; 83735; 83880; 84100; 84484; 85025; 85610; 85730; 86704; 86706; 87340; 87635; 90935; 93005; 93306; 94002; 94660; 96374; 96375; 99285; C1758; J1940; J2405

== ENCOUNTER 2022-08-22 18:36 | Inpatient (IN) | payer MEDICAID, SELFPAY ==
--- NOTE | ~2022-08-22 | XR_ITS ---
EXAMINATION: XR CHEST CLINICAL INFORMATION: SOB. Question per edema. COMPARISON: Chest 05/23/2022. TECHNIQUE: Frontal view of the chest was obtained. FINDINGS: The lungs are slightly hypovolemic with perihilar and bibasilar patchy opacities. There is likely right lower lobe consolidation with small pleural effusion. Heart size and pulmonary vascularity appears normal. There are median sternotomy sutures from previous intervention. There is mild dextroscoliosis. There is a vascular stent in the left axilla. XR/XR chest 1V IMPRESSION: Bibasilar and perihilar patchy opacities.
[2022-08-22 18:45] VITALS: BP 140/49; PULSE 74; RESP 18; TEMP 36.4; O2SAT 97
--- OUTSIDE RECORDS SUMMARY | 2022-08-22 19:45 | XMS_ITS | Continuity of Care Document ---
:1955 Author Organization [facility] Address [address] [place] [id number] Care Team Providers Name Role Phone Ashley Bynre MD Primary Care Physician Encounter [facility] [place] Date(s): 06/04/22 - 06/04/[address] [id number]- Discharge Disposition: A-D/C Home Attending Physician: Gonzalo Phillips MD Admitting Physician: Gonzalo Phillips MD Referring Physician: Not on Staff, Referring MD Allergies, Adverse Reactions, Alerts Substance Reaction Severity Status lisinopril Active Immunizations Given and Recorded Vaccine Date Status Refusal Reason SARS-CoV-2 mRNA ([id number]) vax 02/04/22 Recorde d SARS-CoV-2 (COVID-19) mRNA BNT-162b2 vac 09/05/21 Recorde d SARS-CoV-2 (COVID-19) mRNA-1273 vaccine 11/13/20 Recorded SARS-CoV-2 (COVID-19) mRNA-1273 vaccine 10/15/20 Recorded Medications acetaminophen 325 mg oral tablet 650 mg, 2, tablet, By Mouth, Every 6 hours, PRN, Maintenance, as needed for fever/pain, 05/09/22 18:36:00 EDT, Partial fill upon patient request if the prescription is for a schedule II opioid drug. Start Date: 05/09/22 Status: OrderedamLODIPine 5 mg oral tablet 5 mg, 1, tablet, By Mouth, Daily, Refills 0, Maintenance, 05/28/22 15:57:00 EDT, Partial fill upon patient request if the prescription is for a schedule II opioid drug. Start Date: 05/28/22 Status: Orderedaspirin 81 mg oral tablet, chewable 81 mg, 1, tablet, By Mouth, Daily, Refills 0, Maintenance, 05/28/22 15:57:00 EDT, Partial fill upon patient request if the prescription is for a schedule II opioid drug. Start Date: 05/28/22 Status: Orderedatorvastatin 80 mg oral tablet 1 tablet = 80 mg, By Mouth, Daily at bedtime, 5 Refills, Maintenance, 04/26/22 21:37:00 EDT, Tablet,Partial fill upon patient request if the prescription is for a schedule II opioid drug. Start Date: 04/26/22 Status: Orderedbrimonidine 0.2% ophthalmic solution 1 drops, Eyes, Both, 2 times a day, 0 Refills, Maintenance, 04/26/22 21:38:00 EDT, Solution, Partialfill upon patient request if the prescription is for a schedule II opioid drug. Start Date: 04/26/22 Status: Orderedcarvedilol 25 mg oral tablet 25 mg, 1, tablet, By Mouth, 2 times a day, Refills 0, Maintenance, 05/27/22 13:57:00 EDT, Partial fill upon patient request if the prescription is for a schedule II opioid drug. Start Date: 05/27/22 Status: Orderedcholecalciferol 50,000 intl units oral capsule 1 capsule = 1,250 mcg, By Mouth, Every 30 days, on the , Maintenance, 06/04/22 18:32:00 EDT, Capsule Start Date: 06/04/22 Status: OrderedcloNIDine 0.2 mg oral tablet See Instructions, Take 1 tablet by mouth 3 times a day on Thursday, , Thursday and Thursday. Take 1 tablet twice a day on Thursday, Thursday and Thursday., Refills 0, Maintenance, 04/26/22 21:39:00 EDT, Instructions Replace Required Details, Partial... Start Date: 04/26/22 Status: Ordereddocusate sodium 100 mg oral capsule 100 mg, 1, capsule, By Mouth, 2 times a day, Refills 0, Maintenance, 04/26/22 21:39:00 EDT, Partial fill upon patient request if the prescription is for a schedule II opioid drug. Start Date: 04/26/22 Status: OrderedDocusate/Senna Tablet 1 tablet, By Mouth, 2 times a day, PRN Constipation, 0 Refills, Maintenance, 05/28/22 15:57:00 EDT, Tablet, Partial fill upon patient request if the prescription is for a schedule II opioid drug. Start Date: 05/28/22 Status: OrderedDulcolax 10 mg rectal suppository 1 supp = 10 mg, Rectally, Daily, PRN as needed for constipation, Maintenance, 05/09/22 18:37:00 EDT,Suppository, Partial fill upon patient request if the prescription is for a schedule II opioid drug. Start Date: 05/09/22 Status: OrderedEpoetin Jose 1 mL = 20,000 units, IV Push Slowly, Every Thursday, Thursday and Thursday, 0 Refills, Maintenance, 05/27/22 13:57:00 EDT, Injection, Partial fill upon patient request if the prescription is for a schedule II opioid drug. Start Date: 05/27/22 Status: Orderedgabapentin 100 mg oral capsule 100 mg, 1, capsule, By Mouth, Daily, Refills 5, Maintenance, 04/26/22 21:39:00 EDT, Partial fill upon patient request if the prescription is for a schedule II opioid drug. Start Date: 04/26/22 Status: OrderedImdur 30 mg oral tablet, extended release 30 mg, By Mouth, Daily, Refills 0, Maintenance, 05/01/22 8:06:00 EDT, Partial fill upon patient request if the prescription is for a schedule II opioid drug. Start Date: 05/01/22 Status: Orderedlevothyroxine 0.175 mg oral tablet = 175 mcg, By Mouth, Daily, 0 Refills, Maintenance, 04/26/22 21:40:00 EDT, Partial fill upon patientrequest if the prescription is for a schedule II opioid drug. Start Date: 04/26/22 Status: OrderedLidocaine Every Thursday, Thursday and Thursday, 0 Refills, Maintenance, 04/26/22 21:42:00 EDT, Partial fill uponpatient request if the prescription is for a schedule II opioid drug. Start Date: 04/26/22 Status: OrderedoxyCODONE 5 mg oral tablet 2.5 mg, 0.5, tablet, By Mouth, Every 6 hours, PRN, Refills 0, Tot. Refills 0, Maintenance, as neededfor pain, 06/04/22 18:30:00 EDT Start Date: 06/04/22 Status: Orderedpantoprazole 40 mg oral delayed release tablet 1 tablet = 40 mg, By Mouth, 2 times a day, 0 Refills, Maintenance, 04/26/22 21:44:00 EDT, CR Tablet Start Date: 04/26/22 Status: Orderedsevelamer carbonate 800 mg oral tablet 1 tablet = 800 mg, By Mouth, 3 times a day with meals, 0 Refills, Maintenance, 04/26/22 21:44:00 EDT, Tablet, Partial fill upon patient request if the prescription is for a schedule II opioid drug. Start Date: 04/26/22 Status: OrderedVitamin B Complex oral tablet, extended release 1 tablet, By Mouth, Daily, 0 Refills, Maintenance, 04/26/22 21:45:00 EDT, Partial fill upon patient request if the prescription is for a schedule II opioid drug. Start Date: 04/26/22 Status: Ordered Problem List Condition Effective Dates Status Health Status Informant Anemia of chronic disease(Confirmed) Active Hepatitis C, chronic(Confirmed) Active COPD (chronic obstructive pulmonary Active disease)(Confirmed) Respiratory failure, Active chronic(Confirmed) Coronary artery disease(Confirmed) Active Hyperlipidemia(Confirmed) Active Hypertension(Confirmed) Active Hypothyroidism(Confirmed) Active Hypothyroidism(Confirmed) Active Peripheral vascular disease(Confirmed) Active Vital Signs Most recent to oldest [Reference Range]: 1 2 Oxygen Saturation [94-100 %] 100 % (06/04/22 5:48 PM) Pulse Rate [55-90 bpm] 73 bpm (06/04/22 5:48 PM) Blood Pressure [90-138/55-84 mm Hg] 190/80 mm Hg *H* (06/04/22 5:48 PM) Respiratory Rate [16-30 br/min] 20 br/min (06/04/22 5:48 PM) Temperature [96.8-100.4 DegF] 99.6 DegF (06/04/22 5:48 PM) Liters per Minute 2 L/min 2 L/min (06/04/22 5:48 PM) (06/04/22 5:31 PM) Mode of Delivery (Oxygen) Nasal cannula Nasal cannula (06/04/22 5:48 PM) (06/04/22 5:31 PM) Blood pressure sites Arm, left (06/04/22 5:48 PM) Temperature Route Oral (06/04/22 5:48 PM) Care Team PersonnelName: Ashley Byrne MD Address: [address] [place] [address] [place], [place] [address]
--- OUTSIDE RECORDS SUMMARY | 2022-08-22 19:45 | XMS_ITS | Continuity of Care Document ---
:1955 Author Organization [facility] Address [address] [place] [address]- Care Team Providers Name Role Phone Ashley Byrne MD Primary Care Physician [place]counter [facility] [place] Date(s): 05/15/22 - 06/14/[address] [id number] Attending Physician: AdmMeño valente Admitting Physician: Admtr, Meño Referring Physician: Admtr, Ar8 Allergies, Adverse Reactions, Alerts Substance Reaction Severity Status lisinopril Active Immunizations Given and Recorded Vaccine Date Status Refusal Reason SARS-CoV-2 mRNA ([id number]) vax 02/04/22 Recorde d SARS-CoV-2 (COVID-19) mRNA [...] 06/04/22 Status: OrderedcloNIDine 0.2 mg oral tablet 0.2 mg, 1, tablet, By Mouth, 2 times a day, every Thursday, Thursday, Thursday, # 10 tablet, Refills 0,Tot. Refills 0, Maintenance, 06/12/22 7:51:00 EDT, Print Requisition, Partial fill upon patient request if the prescription is for a schedule II opioi... Start Date: 06/12/22 Stop Date: 06/15/22 Status: OrderedcloNIDine 0.2 mg oral tablet See [...] II opioid drug. Start Date: 04/26/22 Status: Orderedpantoprazole 40 mg oral delayed release [...] Active Hypothyroidism(Confirmed) Active Peripheral vascular disease(Confirmed) Active Pulmonary edema(Confirmed) Active Care Team PersonnelName: Ashley Byrne MD Address: [address] [place] [id number]
--- OUTSIDE RECORDS SUMMARY | 2022-08-22 19:45 | XMS_ITS | Continuity of Care Document ---
:1955 Author Organization [facility] Address [address] [place] [address]- Care Team Providers Name Role Phone Not on Staff, PCP Primary Care Physician Unavailable Encounter [facility] Date(s): 05/09/22 - 05/13/[address] [address] Encounter Diagnosis Anemia (Final) - 05/09/22 ESRD on dialysis (Final) - 05/09/22 Discharge Disposition: A-D/C Home Attending Physician: David Ricardo MD Admitting Physician: Godwin Carpio MD Referring Physician: Not on Staff, Referring MD Allergies, Adverse Reactions, Alerts Substance Reaction Severity Status lisinopril Active Immunizations Given and Recorded Vaccine Date Status Refusal Reason SARS-CoV-2 mRNA ([id number]) vax 02/04/22 Recorde d SARS-CoV-2 (COVID-19) mRNA [...] II opioid drug. Start Date: 05/09/22 Status: Orderedatorvastatin 80 mg oral tablet 1 [...] 04/26/22 Status: Orderedcarvedilol 25 mg oral tablet 50 mg, 2, tablet, By Mouth, 2 times a day, Refills 0, Maintenance, 04/26/22 21:38:00 EDT, Partial fill upon patient request if the prescription is for a schedule II opioid drug. Start Date: 04/26/22 Status: OrderedcloNIDine 0.2 mg oral tablet See [...] capsule, By Mouth, 2 times a day, PRN, Refills 0, Maintenance, for constipation, 04/26/2221:39:00 EDT, Partial fill upon patient request if the prescription is for a schedule II opioid drug. Start Date: 04/26/22 Status: OrderedDulcolax 10 mg rectal suppository 1 supp = 10 mg, Rectally, Daily, PRN as needed for constipation, Maintenance, 05/09/22 18:37:00 EDT,Suppository, Partial fill upon patient request if the prescription is for a schedule II opioid drug. Start Date: 05/09/22 Status: OrderedFleet Enema 19 gm-7 gm rectal enema 1 each, Rectally, Once, PRN for constipation, Maintenance, 05/09/22 18:37:00 EDT, Enema, Partial fill upon patient request if the prescription is for a schedule II opioid drug. Start Date: 05/09/22 Status: Orderedgabapentin 100 mg oral capsule 100 mg, 1, capsule, By Mouth, Daily, Refills 5, Maintenance, 04/26/22 21:39:00 EDT, Partial fill upon patient request if the prescription is for a schedule II opioid drug. Start Date: 04/26/22 Status: Orderedgabapentin 100 mg oral capsule 100 mg, Capsule, By Mouth, 05/13/22 9:00:00 EDT Start Date: 05/13/22 Stop Date: 05/13/22 Status: CompletedImdur 30 mg oral tablet, extended release 30 [...] II opioid drug. Start Date: 04/26/22 Status: OrderedMilk of Magnesia 8% oral suspension 30 mL = 2.4 Gm, By Mouth, Daily, PRN for constipation, Maintenance, 05/09/22 18:36:00 EDT, Suspension, Partial fill upon patient request if the prescription is for a schedule II opioid drug. Start Date: 05/09/22 Status: Orderedminoxidil 10 mg oral tablet 1 tablet = 10 mg, By Mouth, Daily, 0 Refills, Maintenance, 04/26/22 21:43:00 EDT, Tablet, Partial fill upon patient request if the prescription is for a schedule II opioid drug. Start Date: 04/26/22 Status: OrderedNIFEdipine 90 mg oral tablet, extended release 90 mg, 1, tablet, By Mouth, Daily, Refills 0, Maintenance, 04/26/22 21:43:00 EDT, Partial fill upon patient request if [...] II opioid drug. Start Date: 04/26/22 Status: Orderedvalsartan 320 mg oral tablet 1 tablet = 320 mg, By Mouth, Daily, 0 Refills, Maintenance, 04/26/22 21:44:00 EDT, Tablet, [...] opioid drug. Start Date: 04/26/22 Status: OrderedVitamin D 97807 iu oral capsule 1, capsule, By Mouth, once monthly on the of each month, Maintenance, 05/09/22 18:32:00 EDT, Partial fill upon patient request if the prescription is for a schedule II opioid drug. Start Date: 05/09/22 Status: Ordered Problem List Condition Effective Dates Status Health Status Informant Anemia of chronic disease(Confirmed) Active Hepatitis C, chronic(Confirmed) Active COPD (chronic obstructive pulmonary Active disease)(Confirmed) Respiratory failure, Active chronic(Confirmed) Coronary artery disease(Confirmed) Active Hyperlipidemia(Confirmed) Active Hypertension(Confirmed) Active Hypothyroidism(Confirmed) Active Hypothyroidism(Confirmed) Active Peripheral vascular disease(Confirmed) Active Results Radiology Reports Exam Date Time Procedure Performing Provider Status 05/10/22 8:53 PM Chest Portable Gela Snow; Eladio (Verified) Notes:(Chest Portable) Reason For Exam: Other:RESULT: Chest Portable Chest Portable Reason: Other:; Clinical Question(s): CHF; SOB COMPARISON: Priors, most recent dated earlier the same day FINDINGS: LINES AND TUBES: None. LUNGS AND PLEURA: Slight improved aeration of bilateral lung bases with persistent small bilateral pleural effusions, right greater than left with bibasilar atelectasis. Mild central vessel congestion again noted. Previously noted 2 cm rounded opacity in the right lung base is no longer seen, and likely represented atelectasis. No pneumothorax. HEART, MEDIASTINUM AND JOSELYN: Heart is normal in size. Patient is post median sternotomy and CABG Normal upper mediastinal and hilar contour. BONES AND SOFT TISSUES: No acute abnormality. Left axillary vascular stent again noted in place. IMPRESSION: Slight improved aeration of bilateral lung bases with persistent small bilateral pleural effusions, right greater than left and bibasilar atelectasis with mild bilateral central vascular congestion. Previously noted 2 cm apparent rounded opacity in the right lung base is no longer seen and likely represented atelectasis. WSN: [id number] Ordering Physician: Emmie Flores Dictated By: Alyx Trevino MD Dictated Date/Time: 05/10/22 9:16 pm Reviewed By: Alyx Trevino MD Signed By: Alyx Trevino MD Signed Date/Time: 05/10/22 9:16 pm Transcribed By: WILFREDO Transcribed Date/Time: 05/10/22 9:14 pm Exam Date Time Procedure Performing Provider Status 05/10/22 6:04 AM Chest Portable Brie Griggs; Auth (Verified ) Notes:(Chest Portable) Reason For Exam: Shortness of BreathRESULT: Chest Portable AP portable chest, INDICATION: Reason: Shortness of Breath; Clinical Question(s): Pulmonary Edema COMPARISON: yesterday CXR FINDINGS: LINES AND TUBES: There is left axillary vascular stent. LUNGS AND PLEURA AND MEDIASTINUM: There is no pneumothorax. There is moderate size right pleural effusion, small sized left pleural effusion. There is pulmonaryvascular congestion. Heart size is mildly enlarged. At the right lung base there is a 2 cm rounded opacity, new from previous, question focal atelectasis versus infectious/inflammatory nodular opacity. IMPRESSION: Congestive heart failure, worse from previous. New 2 cm round opacity at the right lung base, question focal atelectasis versus infectious/inflammatory etiology. WSN: [id number] Ordering Physician: Madelyn Alejandra Dictated By: Megan Strong MD Dictated Date/Time: 05/10/22 11:18 a Reviewed By: Megan Strong MD Signed By: Megan Strong MD Signed Date/Time: 05/10/22 11:18 am Transcribed By: WILFREDO Transcribed Date/Time: 05/10/22 11:14 am Exam Date Time Procedure Performing Provider Status 05/09/22 11:50 AM Chest Portable Barbara Abreu; Auth (Verified) Notes:(Chest Portable) Reason For Exam: Shortness of BreathRESULT: Chest Portable Chest Portable Reason: Shortness of Breath; Clinical Question(s): CHF COMPARISON: 04/26/2022 FINDINGS: LINES AND TUBES: None. LUNGS AND PLEURA: Low lung volumes. Increased central pulmonary vascularity and interstitial as well as patchy airspace disease. The right basilar basilar consolidation. Small bilateral pleural effusions. No pneumothorax. HEART, MEDIASTINUM AND JOSELYN: Heart is normal in size. Normal upper mediastinal and hilar contour. BONES AND SOFT TISSUES: No acute abnormality. Status post median sternotomy. Axillary vascular stent noted. IMPRESSION: Moderate pulmonary edema and small bilateral pleural effusions. More dense opacity in the right lung base could reflect atelectasis or developing pneumonia in the appropriate clinical setting. Correlate clinically. WSN: [id number] Ordering Physician: Gabriella Reyes Dictated By: Tremayne Haas MD Dictated Date/Time: 05/09/22 12:04 p Reviewed By: Tremayne Haas MD Signed By: Tremayne Haas MD Signed Date/Time: 05/09/22 12:04 pm Transcribed By: WILFREDO Transcribed Date/Time: 05/09/22 12:03 pm Vital Signs Most recent to oldest 1 2 3 [Reference Range]: Height 167.64 cm 167.64 cm 167.64 cm (05/13/22 12:17 PM) (05/13/22 7:39 AM) (05/13/22 3: 17 AM) Weight 57.7 kg 58 kg 58 kg (05/13/22 6:01 AM) (05/12/22 6:23 AM) (05/11/22 11: 00 PM) Oxygen Saturation [94-100 %] 100 % 100 % 100 % (05/13/22 1:00 PM) (05/13/22 7:39 AM) (05/13/22 3:1 7 AM) Pulse Rate [55-90 bpm] 70 bpm 66 bpm 72 bpm (05/13/22 1:00 PM) (05/13/22 12:17 PM) (05/13/22 7: 39 AM) Body Mass Index [18.5-24.99] 22.6 (05/09/22 6:41 PM) Blood Pressure [90-138/55-84 107/49 mm Hg 133/61 mm Hg 180 /102 mm Hg mm Hg] (05/13/22 1:00 PM) (05/13/22 12:17 PM) *H* (05/13/22 7:39 AM ) Respiratory Rate [16-30 18 br/min 18 br/min 18 br/mi n br/min] (05/13/22 12:17 PM) (05/13/22 9:15 AM) (05/13/22 8: 04 AM) Temperature [96.8-100.4 98.1 DegF 97.9 DegF 98 DegF DegF] (05/13/22 1:00 PM) (05/13/22 7:39 AM) (05/13/22 3:1 7 AM) Liters per Minute 2 L/min 2 L/min 2 L/min (05/13/22 7:39 AM) (05/12/22 11:09 PM) (05/12/22 7: 40 PM) Mode of Delivery (Oxygen) Room air Nasal cannula Room a ir (05/13/22 1:00 PM) (05/13/22 7:39 AM) (05/13/22 3:1 7 AM) Blood pressure sites Arm, left Arm, left Arm, left (05/13/22 1:00 PM) (05/13/22 12:17 PM) (05/13/22 7: 39 AM) Temperature Route Oral Oral Oral (05/13/22 1:00 PM) (05/13/22 7:39 AM) (05/13/22 3:1 7 AM) Dry Weight 63.5 kg (05/09/22 6:41 PM) Weight Obtained Via Bed scale Bed scale Bed scale (05/13/22 6:01 AM) (05/12/22 6:23 AM) (05/11/22 11: 00 PM)
--- OUTSIDE RECORDS SUMMARY | 2022-08-22 19:45 | XMS_ITS | Continuity of Care Document ---
:1955 Author Organization [facility] Address [address] [place] [id number]- Encounter [facility] ACCT R [id number] Date(s): 04/23/22 - 04/23/[address] [address]- Attending Physician: Ashley Byrne MD
--- OUTSIDE RECORDS SUMMARY | 2022-08-22 19:45 | XMS_ITS | Continuity of Care Document ---
:1955 Author Organization [facility] Address [address] [place] [address]- Care Team Providers Name Role Phone Ashley Byrne MD Primary Care Physician Encounter [facility] Date(s): 06/07/22 - 06/12/[address] [address]- Encounter Diagnosis Acute exacerbation of congestive heart failure (Final) - 06/07/22 Elevated troponin (Discharge Diagnosis) - 06/07/22 Coronary artery disease (Discharge Diagnosis) - 06/07/22 Anemia of chronic disease (Final) - 06/07/22 ESRD on dialysis (Discharge Diagnosis) - 06/07/22 Hypertension (Discharge Diagnosis) - 06/07/22 Acute exacerbation of congestive heart failure (Final) - 06/09/22 Anemia of chronic disease (Final) - 06/09/22 Discharge Disposition: A-Transfer SNF Attending Physician: Jay Osborn MD Admitting Physician: Zach Doss MD Referring Physician: Not on Staff, Referring MD Allergies, Adverse Reactions, Alerts Substance Reaction Severity Status lisinopril Active Immunizations Given and Recorded Vaccine Date Status Refusal Reason SARS-CoV-2 mRNA ([id number]) vax 02/04/22 Recorde d SARS-CoV-2 (COVID-19) mRNA [...] opioid drug. Start Date: 05/09/22 Status: OrderedamLODIPine 10 mg oral tablet 10 mg, Tablet, By Mouth, 06/12/22 9:00:00 EDT Start Date: 06/12/22 Stop Date: 06/12/22 Status: CompletedamLODIPine 5 mg oral tablet 5 mg, 1, [...] II opioid drug. Start Date: 05/27/22 Status: Orderedcarvedilol 25 mg oral tablet 25 mg, Tablet, By Mouth, 06/12/22 9:00:00 EDT Start Date: 06/12/22 Stop Date: 06/12/22 Status: Completedcholecalciferol 50,000 intl units oral capsule 1 capsule [...] oral capsule 100 mg, Capsule, By Mouth, 06/12/22 9:00:00 EDT Start Date: 06/12/22 Stop Date: 06/12/22 Status: CompletedImdur 30 mg oral tablet, extended [...] 04/26/22 Status: OrderedoxyCODONE 5 mg oral tablet 5 mg, Tablet, By Mouth, Every 6 hours, PRN for Pain , Moderate, Routine, 06/07/22 13:37:00 EDT Start Date: 06/07/22 Stop Date: 06/12/22 Status: DiscontinuedoxyCODONE 5 mg oral tablet 5 mg, Tablet, By Mouth, Once, STAT, 06/12/22 10:58:00 EDT, Stop date 06/12/22 10:58:00 EDT Start Date: 06/12/22 Stop Date: 06/12/22 Status: Completedpantoprazole 40 mg oral delayed release tablet 1 [...] Peripheral vascular disease(Confirmed) Active Pulmonary edema(Confirmed) Active Diagnosis Diagnosis Type Effective Dates Health Clinical Infor mant Status Service Elevated troponin Discharge 06/07/22 Diagnosis Coronary artery Discharge 06/07/22 disease Diagnosis ESRD on dialysis Discharge 06/07/22 Diagnosis Hypertension Discharge 06/07/22 Diagnosis Results Radiology Reports Exam Date Time Procedure Performing Provider Status 06/07/22 6:38 AM Chest Portable Payton Griggs; Auth (Verified ) Notes:(Chest Portable) Reason For Exam: Shortness of BreathRESULT: Chest Portable Chest Portable Hx of Present Illness: SO CP; Reason: Shortness of Breath; Clinical Question(s): Pulmonary Edema COMPARISON: 05/24/2022 FINDINGS: Stable elevation of the right hemidiaphragm. Mild bibasilar consolidation. Diffuse bilateral interstitial and alveolar markings with mid and lower lung zone predominance. IMPRESSION: Mild bibasilar consolidation consistent with small bilateral pleural effusions and/or atelectasis. Bilateral interstitial and alveolar markings with mid and lower lung zone predominance is consistentwith pulmonary edema but bilateral pneumonia is not excluded by imaging WSN: [id number] Ordering Physician: Ysabel Dennis Dictated By: Leonardo Devlin MD Dictated Date/Time: 06/07/22 9:57 am Reviewed By: Leonardo Devlin MD Signed By: Leonardo Devlin MD Signed Date/Time: 06/07/22 9:57 am Transcribed By: WILFREDO Transcribed Date/Time: 06/07/22 9:55 am Vital Signs Most recent to oldest 1 2 3 [Reference Range]: Height 167 cm 167 cm 167 cm (06/12/22 7:08 AM) (06/12/22 1:52 AM) (06/11/22 8:1 2 PM) Weight 58.0 kg 56.8 kg 60.3 kg (06/11/22 5:12 PM) (06/10/22 4:23 PM) (06/09/22 4:0 0 AM) Oxygen Saturation [94-100 %] 100 % 98 % 100 % (06/12/22 7:08 AM) (06/12/22 1:52 AM) (06/11/22 8:1 2 PM) Pulse Rate [55-90 bpm] 60 bpm 53 bpm 57 bpm (06/12/22 8:22 AM) *L* (06/12/22 1:00 AM) (06/12/22 7:08 AM) Body Mass Index [18.5-24.99] 19.94 (06/07/22 10:02 AM) Blood Pressure [90-138/55-84 146/67 mm Hg 146/67 mm Hg 146 /67 mm Hg mm Hg] *H* *H* *H* (06/12/22 8:22 AM) (06/12/22 8:22 AM) (06/12/22 7:0 8 AM) Respiratory Rate [16-30 18 br/min 18 br/min 18 br/mi n br/min] (06/12/22 11:08 AM) (06/12/22 8:22 AM) (06/12/22 8: 22 AM) Temperature [96.8-100.4 DegF] 97.6 DegF 97.9 DegF 97 .7 DegF (06/12/22 7:08 AM) (06/12/22 1:52 AM) (06/11/22 8:1 2 PM) Liters per Minute 2 L/min 2 L/min 2 L/min (06/12/22 7:08 AM) (06/12/22 1:52 AM) (06/11/22 8:1 2 PM) Mode of Delivery (Oxygen) Nasal cannula Nasal cannula Nasal cannula (06/12/22 7:08 AM) (06/12/22 1:52 AM) (06/11/22 8:1 2 PM) Blood pressure sites Arm, left Arm, left Arm, left (06/12/22 7:08 AM) (06/12/22 1:52 AM) (06/11/22 8:1 2 PM) Temperature Route Oral Oral Oral (06/12/22 7:08 AM) (06/12/22 1:52 AM) (06/11/22 8:1 2 PM) Dry Weight 57.5 kg (06/07/22 10:02 AM) Weight Obtained Via Bed scale Bed scale (06/09/22 4:00 AM) (06/07/22 10:02 AM) Note BHSPowerscribe , CIS S: TRANSCRIBE Leonardo Devlin MD: VERIFY Event Display: Result: Authored Date: [id number] Chest Portable Hx of Present Illness: SO CP; Reason: Shortness of Breath; Clinical Question(s): Pulmonary Edema COMPARISON: 05/24/2022 FINDINGS: Stable elevation of the right hemidiaphragm. Mild bibasilar consolidation. Diffuse bilateral interstitial and alveolar markings with mid and lower lung zone predominance. IMPRESSION: Mild bibasilar consolidation consistent with small bilateral pleural effusions and/or atelectasis. Bilateral interstitial and alveolar markings with mid and lower lung zone predominance is consistentwith pulmonary edema but bilateral pneumonia is not excluded by imaging WSN: [id number] Ordering Physician: Ysabel Dennis Dictated By: Leonardo Devlin MD Dictated Date/Time: 06/07/22 9:57 am Reviewed By: Leonardo Devlin MD Signed By: Leonardo Devlin MD Signed Date/Time: 06/07/22 9:57 am Transcribed By: WILFREDO Transcribed Date/Time: 06/07/22 9:55 am Care Team PersonnelName: Ashley Byrne MD Address: [address] [place] [address]
--- OUTSIDE RECORDS SUMMARY | 2022-08-22 19:45 | XMS_ITS | Continuity of Care Document ---
:1955 Author Organization [facility] Address [address] [place] [address]- Care Team Providers Name Role Phone Not on Staff, PCP Primary Care Physician Unavailable Encounter [facility] Date(s): 05/31/22 - 05/31/[address] [address]- Encounter Diagnosis Demand ischemia of myocardium (Final) - 05/31/22 Hypertensive emergency (Final) - 05/31/22 Discharge Disposition: A-Transfer SNF Attending Physician: Lc Salamanca MD Admitting Physician: Lc Salamanca MD Referring Physician: Not on Staff, Referring MD Allergies, Adverse Reactions, Alerts Substance Reaction Severity Status lisinopril Active Immunizations Given and Recorded Vaccine Date Status Refusal Reason SARS-CoV-2 mRNA ([id number]) vax 02/04/22 Recorde d SARS-CoV-2 (COVID-19) mRNA [...] II opioid drug. Start Date: 05/27/22 Status: OrderedcloNIDine 0.2 mg oral tablet See [...] II opioid drug. Start Date: 05/09/22 Status: OrderedoxyCODONE 5 mg oral tablet 5 mg, Tablet, By Mouth, Every 6 hours, PRN for Pain , Moderate, Routine, 05/31/22 16:12:00 EDT Start Date: 05/31/22 Stop Date: 06/07/22 Status: OrderedoxyCODONE 5 mg oral tablet 2.5 mg, 0.5, tablet, By Mouth, Every 6 hours, PRN, for 7 days, # 12 tablet, Refills 0, Tot. Refills 0, Acute 06/04/22 15:58:00 EDT, Pain , Moderate, 05/28/22 15:58:00 EDT, Print Requisition, Partial fill upon patient request if the prescription is for... Start Date: 05/28/22 Stop Date: 06/04/22 Status: Orderedpantoprazole 40 mg oral [...] drug. Start Date: 04/26/22 Status: OrderedVitamin D 94488 iu oral capsule 1, capsule, By Mouth, [...] Vital Signs Most recent to oldest [Reference 1 2 3 Range]: Height 168 cm 168 cm 168 cm (05/31/22 3:27 PM) (05/31/22 2:33 PM) (05/31/22 1:59 P M) Weight 82 kg 82 kg (05/31/22 3:27 PM) (05/31/22 1:59 PM) Oxygen Saturation [94-100 %] 100 % 100 % 100 % (05/31/22 9:10 PM) (05/31/22 3:27 PM) (05/31/22 2:33 P M) Pulse Rate [55-90 bpm] 65 bpm 63 bpm 62 bpm (05/31/22 9:10 PM) (05/31/22 3:27 PM) (05/31/22 2:33 P M) Body Mass Index [18.5-24.99] 29.05 *H* (05/31/22 3:27 PM) Blood Pressure [90-138/55-84 mm 147/77 mm Hg 199/79 mm Hg 194/85 mm Hg Hg] *H* *H* *H* (05/31/22 9:10 PM) (05/31/22 3:27 PM) (05/31/22 2:33 P M) Respiratory Rate [16-30 br/min] 16 br/min 16 br/min 16 br/min (05/31/22 9:10 PM) (05/31/22 3:56 PM) (05/31/22 3:27 P M) Temperature [96.8-100.4 DegF] 98.4 DegF 98.3 DegF (05/31/22 2:33 PM) (05/31/22 1:59 PM) Liters per Minute 2 L/min 2 L/min (05/31/22 9:10 PM) (05/31/22 2:33 PM) Mode of Delivery (Oxygen) Nasal cannula Room air Nasal cannula (05/31/22 9:10 PM) (05/31/22 3:27 PM) (05/31/22 2:33 P M) Blood pressure sites Arm, left Arm, left Arm, left (05/31/22 9:10 PM) (05/31/22 3:27 PM) (05/31/22 2:33 P M) Temperature Route Oral Oral (05/31/22 2:33 PM) (05/31/22 1:59 PM) Dry Weight 82 kg 82 kg (05/31/22 3:27 PM) (05/31/22 1:59 PM) Care Team PersonnelName: Not on Staff, PCP
--- OUTSIDE RECORDS SUMMARY | 2022-08-22 19:45 | XMS_ITS | Continuity of Care Document ---
:1955 Author Organization [facility] Address [address] [place] [id number]- Care Team Providers Name Role Phone Ashley Byrne MD Primary Care Physician Encounter [facility] [place] Date(s): 06/25/22 - 06/25/[address] [address]- Discharge Disposition: A-Transfer SNF Attending Physician: John Lane MD Admitting Physician: John Lane MD Referring Physician: Not on Staff, Referring MD Allergies, Adverse Reactions, Alerts Substance Reaction Severity Status lisinopril Active Immunizations Given and Recorded Vaccine Date Status Refusal Reason SARS-CoV-2 mRNA ([id number]) vax 02/04/22 Recorde d SARS-CoV-2 (COVID-19) mRNA BNT-162b2 vac 09/05/21 Recorde d SARS-CoV-2 (COVID-19) mRNA-1273 vaccine 11/13/20 Recorded SARS-CoV-2 (COVID-19) mRNA-1273 vaccine 10/15/20 Recorded Medications Acephen 650 mg rectal suppository 1 supp = 650 mg, Rectally, Every 6 hours, PRN fever 101F, Maintenance, 06/25/22 15:30:00 EDT, ; Start Date: 06/25/22 Status: Orderedacetaminophen 325 mg oral tablet 650 mg, 2, tablet, By Mouth, Every 6 hours, PRN, Maintenance, as needed for fever/pain, 05/09/22 18:36:00 EDT, Partial fill upon patient request i; Start Date: 05/09/22 Status: OrderedamLODIPine 5 mg oral tablet 5 mg, 1, tablet, By Mouth, Daily, Refills 0, Maintenance, 05/28/22 15:57:00 EDT, ; Start Date: 05/28/22 Status: Orderedaspirin 81 mg oral tablet, chewable 81 mg, 1, tablet, By Mouth, Daily, Refills 0, Maintenance, 05/28/22 15:57:00 EDT, ; Start Date: 05/28/22 Status: Orderedatorvastatin 80 mg oral tablet 1 tablet = 80 mg, By Mouth, Daily at bedtime, 5 Refills, Maintenance, 04/26/22 21:37:00 EDT, Tablet,; Start Date: 04/26/22 Status: Orderedbrimonidine 0.2% ophthalmic solution 1 drops, Eyes, Both, 2 times a day, 0 Refills, Maintenance, 04/26/22 21:38:00 EDT, Solution, ; Start Date: 04/26/22 Status: Orderedcarvedilol 25 mg oral tablet 25 mg, 1, tablet, By Mouth, 2 times a day, Refills 0, Maintenance, 05/27/22 13:57:00 EDT, ; Start Date: 05/27/22 Status: Orderedcholecalciferol 50,000 intl [...] 06/15/22 Status: OrderedcloNIDine 0.2 mg oral tablet 0.2 mg, 1, tablet, By Mouth, 3 times a day, 4 times weekly Thursday, , Thursday & Thursday's only Hold BP less than 110, Refills 0, Maintenance, 04/26/22 21:39:00 EDT, ; Start Date: 04/26/22 Status: Ordereddocusate sodium 100 mg oral capsule 100 mg, 1, capsule, By Mouth, 2 times a day, Refills 0, Maintenance, 04/26/22 21:39:00 EDT, ; Start Date: 04/26/22 Status: OrderedDocusate/Senna Tablet 1 tablet, By Mouth, 2 times a day, PRN Constipation, 0 Refills, Maintenance, 05/28/22 15:57:00 EDT, Tablet, ; Start Date: 05/28/22 Status: OrderedDulcolax 10 mg rectal suppository 1 supp = 10 mg, Rectally, Daily, PRN as needed for constipation, Maintenance, 05/09/22 18:37:00 EDT,Suppository, ; Start Date: 05/09/22 Status: OrderedEpoetin Jose 1 mL = 20,000 units, IV Push Slowly, Every Thursday, Thursday and Thursday, (NOT ON CURRENT PAPER CHART), 0 Refills, Maintenance, 05/27/22 13:57:00 EDT, Injection, Partial fill upon patient req; Start Date: 05/27/22 Status: Orderedgabapentin 100 mg oral capsule 100 mg, 1, capsule, By Mouth, Daily, Refills 5, Maintenance, 04/26/22 21:39:00 EDT, ; Start Date: 04/26/22 Status: OrderedImdur 30 mg oral tablet, extended release 1, tablet, By Mouth, Daily, Refills 0, Maintenance, 05/01/22 8:06:00 EDT, ; Start Date: 05/01/22 Status: Orderedlevothyroxine 200 mcg (0.2 mg) oral capsule 1 capsule = 200 mcg, By Mouth, Daily, Maintenance, 06/25/22 15:29:00 EDT, Capsule, ; Start Date: 06/25/22 Status: OrderedLidocaine Every Thursday, Thursday and Thursday, NOT ON PAPER CHART, 0 Refills, Maintenance, 04/26/22 21:42:00 EDT, ; Start Date: 04/26/22 Status: OrderedNarcan 4 mg/0.1 mL nasal spray = 4 mg, Naris, Left, Once, PRN as needed, Maintenance, 06/25/22 15:39:00 EDT, ; Start Date: 06/25/22 Status: OrderedNarcan Inj 1 mL, Intramuscular, Once, PRN as needed, Maintenance, 06/25/22 15:38:00 EDT, Injection, ; Start Date: 06/25/22 Status: OrderedoxyCODONE 5 mg oral tablet 2.5 mg, 0.5, tablet, By Mouth, Every 6 hours, PRN, (ONLY FOR 7 DAYS PER PAPER CHART), Refills 0, Tot. Refills 0, Maintenance, as needed for pain, 06/16/22 16:35:00 EDT, ; Start Date: 06/16/22 Status: Orderedpantoprazole 40 mg oral delayed release tablet 1 tablet = 40 mg, By Mouth, 2 times a day, 0 Refills, Maintenance, 04/26/22 21:44:00 EDT, CR Tablet Start Date: 04/26/22 Status: Orderedsevelamer carbonate 800 mg oral tablet 1 tablet = 800 mg, By Mouth, 3 times a day with meals, 0 Refills, Maintenance, 04/26/22 21:44:00 EDT, Tablet, ; Start Date: 04/26/22 Status: OrderedVitamin B Complex oral tablet, extended release 1 tablet, By Mouth, Daily, 0 Refills, Maintenance, 04/26/22 21:45:00 EDT, ; Start Date: 04/26/22 Status: Ordered Problem List Condition Confirmation Course Effective Dates Status Health I nformant Status Anemia of chronic Confirmed Active disease Hepatitis C, chronic Confirmed Active COPD (chronic Confirmed Active obstructive pulmonary disease) Respiratory failure, Confirmed Active chronic Coronary artery Confirmed Active disease Diabetes mellitus Confirmed Active Hyperlipidemia Confirmed Active Hypertension Confirmed Active Hypothyroidism Confirmed Active Hypothyroidism Confirmed Active Peripheral vascular Confirmed Active disease Pulmonary edema Confirmed Active Vital Signs Most recent to oldest 1 2 3 [Reference Range]: Oxygen Saturation [94-100 %] 100 % 100 % 100 % (06/25/22 12:04 PM) (06/25/22 11:54 AM) (06/25/22 1 1:35 AM) Pulse Rate [55-90 bpm] 75 bpm (06/25/22 12:04 PM) Blood Pressure [90-138/55-84 208/72 mm Hg mm Hg] *H* (06/25/22 12:04 PM) Respiratory Rate [16-30 22 br/min br/min] (06/25/22 12:04 PM) Liters per Minute 3 L/min 3 L/min 3 L/min (06/25/22 12:04 PM) (06/25/22 11:54 AM) (06/25/22 1 1:35 AM) Mode of Delivery (Oxygen) Nasal cannula Nasal cannula Nasal cannula (06/25/22 12:04 PM) (06/25/22 11:54 AM) (06/25/22 1 1:35 AM) Patient Care team information PersonnelName: Ashley Byrne MD Address: Address: [address] [place] [address]
--- OUTSIDE RECORDS SUMMARY | 2022-08-22 19:45 | XMS_ITS | Continuity of Care Document ---
:1955 Author Organization [facility] Address [address] [place] [address]- Care Team Providers Name Role Phone Not on Staff, PCP Primary Care Physician Unavailable Encounter [facility] [place] Date(s): 04/26/22 - 05/01/[address] [address] Encounter Diagnosis Chest pain (Final) - 04/26/22 CAD (coronary artery disease) (Discharge Diagnosis) - 04/26/22 ESRD on dialysis (Discharge Diagnosis) - 04/26/22 Diabetes (Discharge Diagnosis) - 04/26/22 HTN (hypertension) (Discharge Diagnosis) - 04/26/22 Chest pain (Final) - 04/27/22 Discharge Disposition: A-Transfer SNF Attending Physician: Rosamaria Cano MD Admitting Physician: Zach Doss MD Referring Physician: Not on Staff, Referring MD Allergies, Adverse Reactions, Alerts Substance Reaction Severity Status lisinopril Active Immunizations Given and Recorded Vaccine Date Status Refusal Reason SARS-CoV-2 mRNA ([id number]) vax 02/04/22 Recorde d SARS-CoV-2 (COVID-19) mRNA BNT-162b2 vac 09/05/21 Recorde d SARS-CoV-2 (COVID-19) mRNA-1273 vaccine 11/13/20 Recorded SARS-CoV-2 (COVID-19) mRNA-1273 vaccine 10/15/20 Recorded Medications atorvastatin 80 mg oral tablet 1 tablet = 80 mg, By Mouth, Daily at bedtime, # 30 tablet, 5 Refills, Maintenance, 04/26/22 21:37:00EDT, Tablet, Partial fill upon patient request if the prescription is for a schedule II opioid drug. Start Date: 04/26/22 Status: Orderedbrimonidine 0.2% ophthalmic solution 1 drops, Eyes, Both, 2 times a day, # 5 mL, 0 Refills, Maintenance, 04/26/22 21:38:00 EDT, Solution,Partial fill upon patient request if the prescription is for a schedule II opioid drug. Start Date: 04/26/22 Status: Orderedcarvedilol 25 mg oral tablet 25 mg, 1, tablet, By Mouth, 2 times a day, # 60 tablet, Refills 0, Maintenance, 04/26/22 21:38:00 EDT, Partial fill upon patient request if the prescription is for a schedule II opioid drug. Start Date: 04/26/22 Status: OrderedcloNIDine 0.2 mg oral tablet 0.2 mg, 1, tablet, By Mouth, 3 times a day, # 60 tablet, Refills 0, Maintenance, 04/26/22 21:39:00 EDT, Partial fill upon patient request if the prescription is for a schedule II opioid drug. Start Date: 04/26/22 Status: Ordereddocusate sodium 100 mg oral capsule 100 mg, 1, capsule, By Mouth, 2 times a day, PRN, # 20 capsule, Refills 0, Maintenance, for constipation, 04/26/22 21:39:00 EDT, Partial fill upon patient request if the prescription is for a schedule II opioid drug. Start Date: 04/26/22 Status: Orderedgabapentin 100 mg oral capsule 100 mg, 1, capsule, By Mouth, Daily, # 90 capsule, Refills 5, Maintenance, 04/26/22 21:39:00 EDT, Partial fill upon patient request if the prescription is for a schedule II opioid drug. Start Date: 04/26/22 Status: Orderedgabapentin 100 mg oral capsule 100 mg, Capsule, By Mouth, 05/01/22 9:00:00 EDT Start Date: 05/01/22 Stop Date: 05/01/22 Status: CompletedImdur 30 mg oral tablet, extended release 60 mg, By Mouth, Daily, Refills 0, Maintenance, 05/01/22 8:06:00 EDT, Partial fill upon patient request if the prescription is for a schedule II opioid drug. Start Date: 05/01/22 Status: Orderedlevothyroxine 0.175 mg oral tablet = 175 mcg, By Mouth, 2 times a day, 0 Refills, Maintenance, 04/26/22 21:40:00 EDT, Partial fill uponpatient request if the prescription is for a schedule II opioid drug. Start Date: 04/26/22 Status: OrderedLidocaine Every Thursday, Thursday and Thursday, 0 Refills, Maintenance, 04/26/22 21:42:00 EDT, Partial fill uponpatient request if the prescription is for a schedule II opioid drug. Start Date: 04/26/22 Status: Orderedminoxidil 10 mg oral tablet 1 tablet = 10 mg, By Mouth, Daily, # 60 tablet, 0 Refills, Maintenance, 04/26/22 21:43:00 EDT, Tablet, Partial fill upon patient request if the prescription is for a schedule II opioid drug. Start Date: 04/26/22 Status: OrderedNIFEdipine 90 mg oral tablet, extended release 90 mg, 1, tablet, By Mouth, Daily, # 30 tablet, Refills 0, Maintenance, 04/26/22 21:43:00 EDT, Partial fill upon patient request if the prescription is for a schedule II opioid drug. Start Date: 04/26/22 Status: Orderedpantoprazole 40 mg oral delayed release tablet 1 tablet = 40 mg, By Mouth, 2 times a day, # 60 tablet, 0 Refills, Maintenance, 04/26/22 21:44:00 EDT, CR Tablet Start Date: 04/26/22 Status: Orderedsevelamer carbonate 800 mg oral tablet 3 tablet = 2,400 mg, By Mouth, 3 times a day with meals, # 270 tablet, 0 Refills, Maintenance, 04/26/22 21:44:00 EDT, Tablet, Partial fill upon patient request if the prescription is for a schedule II opioid drug. Start Date: 04/26/22 Status: Orderedvalsartan 320 mg oral tablet 1 tablet = 320 mg, By Mouth, Daily, # 30 tablet, 0 Refills, Maintenance, 04/26/22 21:44:00 EDT, Tablet, [...] Start Date: 04/26/22 Status: Ordered Problem List Diagnosis Diagnosis Type Effective Dates Health Status Clinical In formant Service CAD (coronary Discharge 04/26/22 artery disease) Diagnosis ESRD on dialysis Discharge 04/26/22 Diagnosis Diabetes Discharge 04/26/22 Diagnosis HTN Discharge 04/26/22 (hypertension) Diagnosis Results Radiology Reports Exam Date Time Procedure Performing Provider Status 04/26/22 2:43 PM Chest Portable Aditi Mann; Auth (Verifie d) Notes:(Chest Portable) Reason For Exam: Chest Pain;Other:RESULT: Chest Portable AP upright portable chest dated April 26, 2022 at 1427 hours. No prior studies are available. HISTORY: Chest pain. FINDINGS: The cardiac silhouette is within normal limits for size. Mural calcifications are noted inthe aorta. Some linear density is present in the left mid and lower lung most likely atelectasis. Minimal fluid or thickening in the minor fissure is noted. The patient is status post median sternotomy. There is a mild convex right thoracic scoliosis. IMPRESSION: Minimal left-sided atelectasis. Question minimal pleural thickening or pleural fluid in the minor fissure. Examination [address]. Thank you for allowing me to participate in the care of this patient. WSN: [id number] Ordering Physician: Candida Pina Dictated By: Clinton Patrick MD Dictated Date/Time: 04/26/22 2:53 pm Reviewed By: Clinton Patrick MD Signed By: Clinton Patrick MD Signed Date/Time: 04/26/22 2:53 pm Transcribed By: WILFREDO Transcribed Date/Time: 04/26/22 2:53 pm Vital Signs Most recent to oldest 1 2 3 [Reference Range]: Oxygen Saturation [94-100 %] 100 % 95 % 100 % (05/01/22 11:02 AM) (05/01/22 10:18 AM) (05/01/22 7:00 AM) Pulse Rate [55-90 bpm] 64 bpm 63 bpm 58 bpm (05/01/22 2:00 PM) (05/01/22 12:40 PM) (05/01/22 11:51 AM) Blood Pressure [90-138/55-84 mm 126/59 mm Hg 123/52 mm Hg 93/31 mm Hg Hg] (05/01/22 2:00 PM) (05/01/22 12:40 PM) (05/01/22 11:51 AM) Respiratory Rate [16-30 br/min] 20 br/min 20 br/min 16 br/min (05/01/22 11:02 AM) (05/01/22 10:18 AM) (05/01/22 9:03 AM) Temperature [96.8-100.4 DegF] 97.7 DegF 98.1 DegF 98 .3 DegF (05/01/22 11:02 AM) (05/01/22 10:18 AM) (05/01/22 7:00 AM) Liters per Minute 2 L/min 2 L/min 4 L/min (05/01/22 11:02 AM) (05/01/22 10:18 AM) (04/30/22 3:15 PM) Mode of Delivery (Oxygen) Nasal cannula Nasal cannula Room a ir (05/01/22 11:02 AM) (05/01/22 10:18 AM) (05/01/22 7:00 AM) Blood pressure sites Arm, left Arm, left Arm, left (05/01/22 2:00 PM) (05/01/22 11:51 AM) (05/01/22 11:02 AM) Temperature Route Oral Oral Oral (05/01/22 11:02 AM) (05/01/22 10:18 AM) (05/01/22 7:00 AM)
--- OUTSIDE RECORDS SUMMARY | 2022-08-22 19:45 | XMS_ITS | Continuity of Care Document ---
:1955 Author Organization [facility] Address [address] [place] [phone]- Care Team Providers Name Role Phone Ashley Byrne MD Primary Care Physician Encounter [facility] [place] Date(s): 07/20/22 - 07/24/[address] [address] Encounter Diagnosis TACO (transfusion associated circulatory overload) (Final) - 07/20/22 Discharge Disposition: A-Transfer SNF Attending Physician: Tong Gómez MD Admitting Physician: aZch Doss MD Referring Physician: Not on Staff, Referring MD Allergies, Adverse Reactions, Alerts Substance Reaction Severity Status lisinopril Active Immunizations Given and Recorded Vaccine Date Status Refusal Reason SARS-CoV-2 mRNA ([id number]) vax 02/04/22 Recorde d SARS-CoV-2 (COVID-19) mRNA BNT-162b2 vac 09/05/21 Recorde d SARS-CoV-2 (COVID-19) mRNA-1273 vaccine 11/13/20 Recorded SARS-CoV-2 (COVID-19) mRNA-1273 vaccine 10/15/20 Recorded Medications acetaminophen 325 mg oral tablet 650 mg, 2, tablet, By Mouth, Every 6 hours, PRN, Maintenance, as needed for fever/pain, 05/09/22 18:36:00 EDT, Partial fill upon patient request i; Start Date: 05/09/22 Status: Orderedaspirin 81 mg oral tablet, chewable [...] oral tablet 25 mg, Tablet, By Mouth, 07/24/22 9:00:00 EDT Start Date: 07/24/22 Stop Date: 07/24/22 Status: Completedcarvedilol 25 mg oral tablet 25 mg, 1, tablet, By Mouth, 2 times a day, Refills 0, Maintenance, 05/27/22 13:57:00 EDT, ; Start Date: 05/27/22 Status: Orderedcarvedilol 25 mg oral tablet 25 mg, Tablet, By Mouth, 07/23/22 21:00:00 EDT Start Date: 07/23/22 Stop Date: 07/23/22 Status: Completedcholecalciferol 50,000 intl units oral capsule 1 capsule = 1,250 mcg, By Mouth, Every 30 days, on the , Maintenance, 06/04/22 18:32:00 EDT, Capsule Start Date: 06/04/22 Status: OrderedcloNIDine 0.1 mg oral tablet 0.2 mg, 2, tablet, By Mouth, 3 times a day, # 180 tablet, Refills 0, Tot. Refills 0, Maintenance, 07/24/22 9:34:00 EDT, Do Not Route, Partial fill upon patient request if the prescription is for a schedule II opioid drug. Start Date: 07/24/22 Status: Ordereddocusate sodium 100 mg oral capsule [...] oral capsule 100 mg, Capsule, By Mouth, 07/24/22 9:00:00 EDT Start Date: 07/24/22 Stop Date: 07/24/22 Status: Completedgabapentin 100 mg oral capsule 100 mg, 1, [...] EDT, Injection, ; Start Date: 06/25/22 Status: OrderedNIFEdipine 60 mg oral tablet, extended release 60 mg, ER Tablet, By Mouth, 07/24/22 9:00:00 EDT Start Date: 07/24/22 Stop Date: 07/24/22 Status: CompletedNIFEdipine 60 mg oral tablet, extended release 60 mg, 1, tablet, By Mouth, 2 times a day, # 60 tablet, Refills 0, Tot. Refills 0, Maintenance, 07/24/22 9:35:00 EDT, Do Not Route, Partial fill upon patient request if the prescription is for a schedule II opioid drug. Start Date: 07/24/22 Status: OrderedoxyCODONE 5 mg oral tablet 5 mg, Tablet, By Mouth, Every 6 hours, PRN for Pain , Moderate, Routine, 07/23/22 8:52:00 EDT Start Date: 07/23/22 Stop Date: 07/24/22 Status: Discontinuedpantoprazole 40 mg oral delayed release tablet 1 [...] Confirmed Active disease Pulmonary edema Confirmed Active TACO (transfusion Confirmed 07/01/22 Active associated circulatory overload)1 1Patient at risk for Transfusion-Associated Circulatory Overload (TACO). The use of slow infusion rates, the administration of lino-transfusion diuretics where not clinically contraindicated, and/or thetransfusion of split units of PRBCs should be considered in any future hemotherapy interventions. Consult Transfusion Medicine Services if any questions. Results Radiology Reports Exam Date Time Procedure Performing Provider Status 07/20/22 12:34 PM Chest 2 Views Frontal and Lat Marie Tovar (Verified) Notes:(Chest 2 Views Frontal and Lat) Reason For Exam: Chest Pain;Other:RESULT: Chest 2 Views Frontal and Lat Chest 2 Views Frontal and Lat INDICATION: Chest pain encountered during blood transfusion for chronic anemia. Dialysis patient. COMPARISON: Most recent 07/01/2022 and 06/16/2022 FINDINGS: LINES AND TUBES: None. LUNGS AND PLEURA: Low lung volumes. Persistent moderate right pleural effusion. 2 cm masslike focus in the central right lung is probably pseudotumor in the right minor fissure from effusion. Slightly improved hazy opacity lower half of left lung. No pneumothorax. HEART, MEDIASTINUM AND JOSELYN: Unchanged. BONES AND SOFT TISSUES: No acute abnormality. IMPRESSION: 1 Persistent moderate right basilar pleural-parenchymal opacity and probable effusion related pseudotumor in the minor fissure. 2. Slightly improved left basilar opacity. WSN: [id number] Ordering Physician: Sandro Hale Dictated By: Leoncio Spencer MD Dictated Date/Time: 07/20/22 12:49 p Reviewed By: Leoncio Spencer MD Signed By: Leoncio Spencer MD Signed Date/Time: 07/20/22 12:49 pm Transcribed By: WILFREDO Transcribed Date/Time: 07/20/22 12:45 pm Vital Signs Most recent to oldest 1 2 3 [Reference Range]: Weight 57.3 kg 57.9 kg 57.8 kg (07/23/22 4:00 AM) (07/22/22 3:00 AM) (07/21/22 12:00 AM) Oxygen Saturation [94-100 100 % 100 % 99 % %] (07/24/22 4:55 AM) (07/23/22 8:12 PM) (07/23/22 6:36 PM) Pulse Rate [55-90 bpm] 59 bpm 56 bpm 63 bpm (07/24/22 8:54 AM) (07/24/22 4:55 AM) (07/23/22 11:06 PM) Blood Pressure 160/75 mm Hg 160/75 mm Hg 194/127 mm Hg [90-138/55-84 mm Hg] *H* *H* *H* (07/24/22 8:54 AM) (07/24/22 8:54 AM) (07/24/22 4:55 AM) Respiratory Rate [16-30 17 br/min 16 br/min 18 br/mi n br/min] (07/24/22 10:36 AM) (07/24/22 8:54 AM) (07/24/22 6:34 AM) Temperature [96.8-100.4 97.3 DegF 98 DegF 98.3 Deg F DegF] (07/24/22 4:55 AM) (07/23/22 8:12 PM) (07/23/22 6:36 PM) Liters per Minute 3 L/min 3 L/min 3 L/min (07/23/22 6:36 PM) (07/23/22 5:00 PM) (07/23/22 4:00 PM) Mode of Delivery (Oxygen) Nasal cannula Nasal cannula Nasal cannula (07/23/22 6:36 PM) (07/23/22 5:00 PM) (07/23/22 4:00 PM) Blood pressure sites Arm, left Arm, left Arm, left (07/23/22 6:36 PM) (07/23/22 5:00 PM) (07/23/22 4:00 PM) Temperature Route Oral Oral Oral (07/23/22 6:36 PM) (07/23/22 4:00 PM) (07/23/22 4:00 AM) Weight Obtained Via Bed scale Bed scale Bed scale (07/23/22 4:00 AM) (07/22/22 3:00 AM) (07/21/22 12:00 AM) Social History Social History Type Response Smoking Status Former smoker, quit more priscilla n 30 days ago; Other: Quit 20 years ago, smoked for 30 years 1.5 ppd; entered on: 06/30/22 Sex Note BHSPowerscribe , CIS S: TRANSCRIBE Leoncio Sepncer MD: VERIFY Event Display: Result: Authored Date: [id number] Chest 2 Views Frontal and Lat INDICATION: Chest pain encountered during blood transfusion for chronic anemia. Dialysis patient. COMPARISON: Most recent 07/01/2022 and 06/16/2022 FINDINGS: LINES AND TUBES: None. LUNGS AND PLEURA: Low lung volumes. Persistent moderate right pleural effusion. 2 cm masslike focus in the central right lung is probably pseudotumor in the right minor fissure from effusion. Slightly improved hazy opacity lower half of left lung. No pneumothorax. HEART, MEDIASTINUM AND JOSELYN: Unchanged. BONES AND SOFT TISSUES: No acute abnormality. IMPRESSION: 1 Persistent moderate right basilar pleural-parenchymal opacity and probable effusion related pseudotumor in the minor fissure. 2. Slightly improved left basilar opacity. WSN: [id number] Ordering Physician: Sandro Hale Dictated By: Leoncio Spencer MD Dictated Date/Time: 07/20/22 12:49 p Reviewed By: Leoncio Spencer MD Signed By: Leoncio Spencer MD Signed Date/Time: 07/20/22 12:49 pm Transcribed By: WILFREDO Transcribed Date/Time: 07/20/22 12:45 pm Patient Care team information PersonnelName: Ashley Byrne MD Address: Address: [address] [place] [address]
--- OUTSIDE RECORDS SUMMARY | 2022-08-22 19:45 | XMS_ITS | Continuity of Care Document ---
:1955 Author Organization [facility] Address [address] [place] [address]- Care Team Providers Name Role Phone Not on Staff, PCP Primary Care Physician Unavailable Encounter [facility] Date(s): 05/24/22 - 05/28/[address] [address] Discharge Disposition: A-D/C Home Attending Physician: Miko Vanegas DO Admitting Physician: Zach Doss MD Referring Physician: Zach Doss MD Allergies, Adverse Reactions, Alerts Substance Reaction Severity Status lisinopril Active Immunizations Given and Recorded Vaccine Date Status Refusal Reason SARS-CoV-2 mRNA ([id number]-[id number]) vax 02/04/22 Recorde d SARS-CoV-2 (COVID-19) mRNA [...] oral capsule 100 mg, Capsule, By Mouth, 05/28/22 9:00:00 EDT Start Date: 05/28/22 Stop Date: 05/28/22 Status: CompletedImdur 30 mg oral tablet, extended [...] 05/09/22 Status: OrderedoxyCODONE 5 mg oral tablet 2.5 mg, Tablet, By Mouth, Every 6 hours, PRN for Pain , Moderate, Routine, 05/26/22 12:14:00 EDT Start Date: 05/26/22 Stop Date: 05/29/22 Status: DiscontinuedoxyCODONE 5 mg oral tablet 2.5 mg, 0.5, [...] drug. Start Date: 04/26/22 Status: OrderedVitamin D 34969 iu oral capsule 1, capsule, By Mouth, [...] Active Hypothyroidism(Confirmed) Active Peripheral vascular disease(Confirmed) Active Severe obesity(Confirmed) Active Results Radiology Reports Exam Date Time Procedure Performing Provider Status 05/24/22 9:40 PM Chest Portable Hayde Gregory; Eladio (Verified) Notes:(Chest Portable) Reason For Exam: CHFRESULT: Chest Portable Chest Portable Reason: CHF; Clinical Question(s): Pulmonary Edema COMPARISON: X-ray from 05/10/2022 FINDINGS: LINES AND TUBES: There has been interval placement of a left internal jugular CVL with its tip at the caval atrial junction. There is stable positioning of a left axillary vascular stent. LUNGS AND PLEURA: Low lung volumes with mild basilar atelectasis. Small right effusion unchanged. No pneumothorax. HEART, MEDIASTINUM AND JOSELYN: Status post median sternotomy. Mild prominence of the cardiac silhouette, unchanged. Normal upper mediastinal and hilar contour. BONES AND SOFT TISSUES: No acute abnormality. IMPRESSION: Stable small right pleural effusion and adjacent lower lobe atelectasis. WSN: [id number] Ordering Physician: Raffi Robert Dictated By: Godwin Workman MD Dictated Date/Time: 05/24/22 9:47 pm Reviewed By: Godwin Workman MD Signed By: Godwin Workman MD Signed Date/Time: 05/24/22 9:47 pm Transcribed By: WILFREDO Transcribed Date/Time: 05/24/22 9:45 pm Vital Signs Most recent to oldest 1 2 3 [Reference Range]: Height 96.8 cm 96.8 cm 96.8 cm (05/28/22 7:06 AM) (05/28/22 1:37 AM) (05/27/22 8:0 2 PM) Weight 57.1 kg 57 kg 58.2 kg (05/28/22 6:13 AM) (05/27/22 6:21 AM) (05/24/22 6:0 7 PM) Oxygen Saturation [94-100 %] 100 % 100 % 100 % (05/28/22 4:00 PM) (05/28/22 7:06 AM) (05/28/22 1:3 7 AM) Pulse Rate [55-90 bpm] 62 bpm 54 bpm 96 bpm (05/28/22 4:00 PM) *L* *H* (05/28/22 7:06 AM) (05/28/22 1:37 AM) Body Mass Index [18.5-24.99] 62.11 *>HHI* (05/24/22 6:07 PM) Blood Pressure [90-138/55-84 mm 142/78 mm Hg 159/83 mm Hg 149/66 mm Hg Hg] *H* *H* *H* (05/28/22 4:00 PM) (05/28/22 7:06 AM) (05/28/22 1:3 7 AM) Respiratory Rate [16-30 br/min] 18 br/min 20 br/min 20 br/min (05/28/22 4:00 PM) (05/28/22 9:25 AM) (05/28/22 9:2 0 AM) Temperature [96.8-100.4 DegF] 97.6 DegF 96.8 DegF 97 .1 DegF (05/28/22 4:00 PM) (05/28/22 7:06 AM) (05/28/22 1:3 7 AM) Liters per Minute 2 L/min 2 L/min 2 L/min (05/28/22 1:37 AM) (05/27/22 8:02 PM) (05/27/22 2:1 1 PM) Mode of Delivery (Oxygen) Room air Room air Nasal cannula (05/28/22 4:00 PM) (05/28/22 7:06 AM) (05/28/22 1:3 7 AM) Blood pressure sites Arm, left Arm, left Arm, left (05/28/22 4:00 PM) (05/28/22 7:06 AM) (05/28/22 1:3 7 AM) Temperature Route Temporal Temporal Temporal (05/28/22 4:00 PM) (05/28/22 7:06 AM) (05/28/22 1:3 7 AM) Dry Weight 58.2 kg (05/24/22 6:07 PM) Note [facility]SP[facility]erscribe , CIS S: TRANSCRIBE Ji ROJAS, Godwin J: VERIFY Event Display: Result: Authored Date: Chest Portable Reason: CHF; Clinical Question(s): Pulmonary Edema COMPARISON: X-ray from 05/10/2022 FINDINGS: LINES AND TUBES: There has been interval placement of a left internal jugular CVL with its tip at the caval atrial junction. There is stable positioning of a left axillary vascular stent. LUNGS AND PLEURA: Low lung volumes with mild basilar atelectasis. Small right effusion unchanged. No pneumothorax. HEART, MEDIASTINUM AND JOSELYN: Status post median sternotomy. Mild prominence of the cardiac silhouette, unchanged. Normal upper mediastinal and hilar contour. BONES AND SOFT TISSUES: No acute abnormality. IMPRESSION: Stable small right pleural effusion and adjacent lower lobe atelectasis. WSN: [id number] Ordering Physician: Raffi Robert Dictated By: Godwin Workman MD Dictated Date/Time: 05/24/22 9:47 pm Reviewed By: Godwin Workman MD Signed By: Godwin oWrkman MD Signed Date/Time: 05/24/22 9:47 pm Transcribed By: WILFREDO Transcribed Date/Time: 05/24/22 9:45 pm Care Team PersonnelName: Not on Staff, PCP
--- OUTSIDE RECORDS SUMMARY | 2022-08-22 19:45 | XMS_ITS | Continuity of Care Document ---
:1955 Author Organization [facility] Address [address] [place] [id number]- Care Team Providers Name Role Phone Ashley Byrne MD Primary Care Physician Encounter [facility] Date(s): 06/30/22 - 07/03/[address] [address] Discharge Disposition: A-Transfer SNF Attending Physician: Sandy Berman MD Admitting Physician: Dread Chiang MD Referring Physician: Not on Staff, Referring MD Allergies, Adverse Reactions, Alerts Substance Reaction Severity Status lisinopril Active Immunizations Given and Recorded Vaccine Date Status Refusal Reason SARS-CoV-2 mRNA (fphhywz-ghiy-[id number]) vax 02/04/22 Recorde d SARS-CoV-2 (COVID-19) mRNA [...] OrderedcloNIDine 0.1 mg oral tablet 0.2 mg, Tablet, By Mouth, 07/03/22 15:00:00 EDT Start Date: 07/03/22 Stop Date: 07/03/22 Status: CompletedcloNIDine 0.2 mg oral tablet 0.2 mg, 1, [...] 06/25/22 Status: OrderedoxyCODONE 5 mg oral tablet 5 mg, Tablet, By Mouth, Every 6 hours, PRN for Pain , Moderate, Routine, 07/01/22 15:32:00 EDT Start Date: 07/01/22 Stop Date: 07/04/22 Status: Discontinuedpantoprazole 40 mg oral delayed release [...] Confirmed Active disease Pulmonary edema Confirmed Active Procedures Procedure Date Related Diagnosis Body Site Status Above knee amputation Comple demetra Right Upper Extremity AV Fistula Completed Results Radiology Reports Exam Date Time Procedure Performing Provider Status 07/01/22 6:30 AM Chest Portable Navjot Arias; Auth (Verified) Notes:(Chest Portable) Reason For Exam: Shortness of BreathRESULT: Chest Portable Chest Portable Reason: Shortness of Breath; Clinical Question(s): CHF COMPARISON: 06/16/2022 FINDINGS: LINES AND TUBES: None. LUNGS AND PLEURA: Hazy opacification of the mid and lower lung bilaterally is noted, greater on the right than the left. Pulmonary vascularity appears increased. Upper lung hogan are clear. Right pleural effusion. Possible small left pleural effusion. No pneumothorax. HEART, MEDIASTINUM AND JOSELYN: Stable cardiomegaly. Evidence of remote CABG procedure. Normal mediastinal and hilar contour. BONES AND SOFT TISSUES: No acute osseous abnormality. Sternal suture wires. Left axillary vascular stent. IMPRESSION: CHF with pulmonary edema and right pleural effusion. Possible small left pleural effusion. Underlying infiltrate in either lower lung cannot be excluded. WSN: [id number] Ordering Physician: Renetta Whalen Dictated By: Leonardo Robbins MD Dictated Date/Time: 07/01/22 8:51 am Reviewed By: Leonardo Robbins MD Signed By: Leonardo Robbins MD Signed Date/Time: 07/01/22 8:51 am Transcribed By: WILFREDO Transcribed Date/Time: 07/01/22 8:50 am Vital Signs Most recent to oldest 1 2 3 [Reference Range]: Height 167 cm 167 cm 167 cm (07/03/22 5:21 PM) (07/03/22 3:50 PM) (07/03/22 11: 54 AM) Weight 54.0 kg 58.5 kg 56.6 kg (07/03/22 6:30 AM) (07/01/22 2:41 AM) (07/01/22 1:4 1 AM) Oxygen Saturation [94-100 %] 100 % 100 % 100 % (07/03/22 5:21 PM) (07/03/22 11:54 AM) (07/03/22 6: 30 AM) Pulse Rate [55-90 bpm] 58 bpm 58 bpm 55 bpm (07/03/22 5:21 PM) (07/03/22 3:50 PM) (07/03/22 11: 54 AM) Body Mass Index [18.5-24.99 19.36 kg/m2 20.98 kg/m2 20.2 9 kg/m2 kg/m2] (07/03/22 6:30 AM) (07/01/22 2:41 AM) (07/01/22 1:4 1 AM) Blood Pressure [90-138/55-84 147/57 mm Hg 139/57 mm Hg 139 /57 mm Hg mm Hg] *H* *H* *H* (07/03/22 5:21 PM) (07/03/22 3:55 PM) (07/03/22 3:5 0 PM) Respiratory Rate [16-30 18 br/min 16 br/min 18 br/mi n br/min] (07/03/22 5:21 PM) (07/03/22 1:22 PM) (07/03/22 11: 54 AM) Temperature [96.8-100.4 DegF] 97.8 DegF 98.7 DegF 98 .1 DegF (07/03/22 5:21 PM) (07/03/22 11:54 AM) (07/03/22 6: 30 AM) Liters per Minute 3 L/min 3 L/min 3 L/min (07/03/22 5:21 PM) (07/03/22 11:54 AM) (07/03/22 6: 30 AM) Mode of Delivery (Oxygen) Nasal cannula Nasal cannula Nasal cannula (07/03/22 5:21 PM) (07/03/22 11:54 AM) (07/03/22 6: 30 AM) Blood pressure sites Arm, left Arm, left Arm, left (07/03/22 5:21 PM) (07/03/22 3:50 PM) (07/03/22 11: 54 AM) Temperature Route Oral Oral Oral (07/03/22 5:21 PM) (07/03/22 11:54 AM) (07/03/22 6: 30 AM) Dry Weight 58.5 kg 58.5 kg 58.5 kg (07/01/22 2:41 AM) (06/30/22 6:54 PM) (06/30/22 4:5 0 PM) Weight Obtained Via Bed scale scale (07/03/22 6:30 AM) (07/01/22 1:41 AM) Social History Social History Type Response Smoking Status Former smoker, quit more priscilla n 30 days ago; Other: Quit 20 years ago, smoked for 30 years 1.5 ppd; entered on: 06/30/22 Sex Portable XR Chest Views [facility]SPowerscribe , CIS S: TRANSCRIBE Leonardo Robbins MD: VERIFY Event Display: Result: Authored Date: [id number] Chest Portable Reason: Shortness of Breath; Clinical Question(s): CHF COMPARISON: 06/16/2022 FINDINGS: LINES AND TUBES: None. LUNGS AND PLEURA: Hazy opacification of the mid and lower lung bilaterally is noted, greater on the right than the left. Pulmonary vascularity appears increased. Upper lung hogan are clear. Right pleural effusion. Possible small left pleural effusion. No pneumothorax. HEART, MEDIASTINUM AND JOSELYN: Stable cardiomegaly. Evidence of remote CABG procedure. Normal mediastinal and hilar contour. BONES AND SOFT TISSUES: No acute osseous abnormality. Sternal suture wires. Left axillary vascular stent. IMPRESSION: CHF with pulmonary edema and right pleural effusion. Possible small left pleural effusion. Underlying infiltrate in either lower lung cannot be excluded. WSN: [id number] Ordering Physician: Renetta Whalen Dictated By: Leonardo Robbins MD Dictated Date/Time: 07/01/22 8:51 am Reviewed By: Leonardo Robbins MD Signed By: Leonardo Robbins MD Signed Date/Time: 07/01/22 8:51 am Transcribed By: WILFREDO Transcribed Date/Time: 07/01/22 8:50 am Patient Care team information PersonnelName: Ashley Byrne MD Address: Address: [address] [place] [address] [place], [place] [address]
--- OUTSIDE RECORDS SUMMARY | 2022-08-22 19:45 | XMS_ITS | Continuity of Care Document ---
:1955 Author Organization [facility] Address [address] [place] [id number]- Care Team Providers Name Role Phone Ashley Byrne MD Primary Care Physician Encounter [facility] [place] Date(s): 06/16/22 - 06/17/[address] [address]- Encounter Diagnosis Hyperkalemia (Final) - 06/17/22 Hyperkalemia (Final) - 06/16/22 Discharge Disposition: A-D/C Home Attending Physician: Jayro Whitfield MD Admitting Physician: Dread Chiang MD Referring Physician: Not on Staff, Referring MD Allergies, Adverse Reactions, Alerts Substance Reaction Severity Status lisinopril Active Immunizations Given and Recorded Vaccine Date Status Refusal Reason SARS-CoV-2 mRNA ([id number]-pvct-[id number]) vax 02/04/22 Recorde d SARS-CoV-2 (COVID-19) mRNA [...] Tot. Refills 0, Maintenance, as neededfor pain, 06/16/22 16:35:00 EDT, Partial fill upon patient request if the prescription is for a schedule II opioid drug. Start Date: 06/16/22 Status: Orderedpantoprazole 40 mg [...] failure, Active chronic(Confirmed) Coronary artery disease(Confirmed) Active Diabetes mellitus(Confirmed) Active Hyperlipidemia(Confirmed) Active Hypertension(Confirmed) Active Hypothyroidism(Confirmed) Active Hypothyroidism(Confirmed) Active Peripheral vascular disease(Confirmed) Active Pulmonary edema(Confirmed) Active Results Radiology Reports Exam Date Time Procedure Performing Provider Status 06/16/22 1:48 PM Chest Portable Dread Saba; Eladio (Verified ) Notes:(Chest Portable) Reason For Exam: Shortness of BreathRESULT: Chest Portable Chest Portable Hx of Present Illness: syncope; Reason: Shortness of Breath; Clinical Question(s): CHF COMPARISON: 06/07/2022 FINDINGS: Slight improvement in bibasilar lung aeration with decreased mild bibasilar consolidation and airspace disease, right greater than left. Bilateral interstitial and alveolar markings have decreased. IMPRESSION: Overall improvement when compared with 06/07/2022. Mild bibasilar consolidation and airspace disease has decreased. Bilateral interstitial and alveolar markings have decreased. WSN: [id number] Ordering Physician: Ja Santillan Dictated By: Leonardo Devlin MD Dictated Date/Time: 06/16/22 2:21 pm Reviewed By: Leonardo Devlin MD Signed By: Leonardo Devlin MD Signed Date/Time: 06/16/22 2:21 pm Transcribed By: WILFREDO Transcribed Date/Time: 06/16/22 2:20 pm Vital Signs Most recent to oldest 1 2 3 [Reference Range]: Oxygen Saturation [94-100 %] 100 % 100 % 100 % (06/17/22 2:21 PM) (06/17/22 12:20 PM) (06/17/22 10 :25 AM) Pulse Rate [55-90 bpm] 58 bpm 57 bpm 65 bpm (06/17/22 2:21 PM) (06/17/22 12:20 PM) (06/17/22 10 :25 AM) Blood Pressure [90-138/55-84 127/64 mm Hg 128/52 mm Hg 192 /65 mm Hg mm Hg] (06/17/22 2:21 PM) (06/17/22 12:20 PM) *H* (06/17/22 10:25 A M) Respiratory Rate [16-30 18 br/min 18 br/min 16 br/mi n br/min] (06/17/22 2:21 PM) (06/17/22 12:20 PM) (06/17/22 10 :25 AM) Temperature [96.8-100.4 97.9 DegF 98.1 DegF 98.3 Deg F DegF] (06/17/22 12:20 PM) (06/17/22 8:15 AM) (06/16/22 7: 54 PM) Liters per Minute 3 L/min 3 L/min 3 L/min (06/17/22 10:25 AM) (06/17/22 8:15 AM) (06/17/22 6: 16 AM) Mode of Delivery (Oxygen) Room air Room air Nasal cannula (06/17/22 2:21 PM) (06/17/22 12:20 PM) (06/17/22 10 :25 AM) Blood pressure sites Arm, right Arm, right Arm, left (06/17/22 2:21 PM) (06/17/22 12:20 PM) (06/17/22 10 :25 AM) Temperature Route Oral Oral Oral (06/17/22 12:20 PM) (06/17/22 8:15 AM) (06/16/22 7: 54 PM) Note [facility]SPowerscribe , CIS S: TRANSCRIBE Leonardo Devlin MD: VERIFY Event Display: Result: Authored Date: Chest Portable Hx of Present Illness: syncope; Reason: Shortness of Breath; Clinical Question(s): CHF COMPARISON: 06/07/2022 FINDINGS: Slight improvement in bibasilar lung aeration with decreased mild bibasilar consolidation and airspace disease, right greater than left. Bilateral interstitial and alveolar markings have decreased. IMPRESSION: Overall improvement when compared with 06/07/2022. Mild bibasilar consolidation and airspace disease has decreased. Bilateral interstitial and alveolar markings have decreased. WSN: [id number] Ordering Physician: Ja Santillan Dictated By: Leonardo Devlin MD Dictated Date/Time: 06/16/22 2:21 pm Reviewed By: Leonardo Devlin MD Signed By: Leonardo Devlin MD Signed Date/Time: 06/16/22 2:21 pm Transcribed By: WILFREDO Transcribed Date/Time: 06/16/22 2:20 pm Care Team PersonnelName: Ashley Byrne MD Address: [address] [place] [address]
[2022-08-22 20:10] VITALS: BP 144/50; PULSE 96; RESP 18; O2SAT 98
[2022-08-22 20:14] VITALS: BP 161/59; PULSE 69; RESP 20; O2SAT 100
--- NOTE | 2022-08-22 20:43 | ED_ITS ---
HPI - General Adult General Chief complaint: General Medical Stated complaint: LOW H/H Time Seen by Provider: 08/22/22 19:21 Source: patient Mode of arrival: ambulatory Limitations: no limitations History of Present Illness HPI narrative: This is a 66-year-old male history of STEMI, CKD on HD M,W,F ( last dialyzed this morning) on aspirin presents to the emergency department from [facility] with concerns of abnormal labs hemoglobin noted to be 6.3. Patient tells me he is annoyed to be here and he has no medical complaints. Denies fevers, chills, rectal bleeding, hematemesis, nausea vomiting, chest pain, shortness of breath. Patient tells me he had a colonoscopy years ago unsure of results. Patient doesn't make urine. Related Data Home Medications Medication Instructions Recorded Confirmed acetaminophen 325 mg tablet 650 mg PO Q6H PRN Pain (Scale 05/23/22 05/23/22 Score 4-6) acetaminophen 650 mg rectal 650 mg SD Q6H PRN Pain (Scale 05/23/22 05/23/22 suppository Score 4-6) atorvastatin 80 mg tablet 80 mg PO BEDTIME 05/23/22 05/23/22 bisacodyl 10 mg rectal suppository 10 mg SD DAILY PRN IF MOM 05/23/22 05/23/22 INEFFECTIVE FOR BM brimonidine 0.2 % eye drops 1 drp ophthalmic (eye) BID 05/23/22 05/23/22 carvedilol 25 mg tablet 50 mg PO BID 05/23/22 05/23/22 clonidine HCl 0.2 mg tablet 0.2 mg PO MOWEFR@0900,2100 05/23/22 05/23/22 clonidine HCl 0.2 mg tablet See Rx Instructions .Route .COMPLEX 05/23/22 05/23/22 docusate sodium 100 mg capsule 100 mg PO BID 05/23/22 05/23/22 ergocalciferol (vitamin D2) 1,250 1,250 mcg PO QMONTH 05/23/22 05/23/22 mcg (50,000 unit) capsule gabapentin 100 mg capsule 100 mg PO DAILY 05/23/22 05/23/22 isosorbide mononitrate 30 mg 1 tab PO DAILY 05/23/22 05/23/22 tablet,extended release 24 hr levothyroxine 175 mcg tablet 175 mcg PO DAILY@0600 05/23/22 05/23/22 minoxidil 10 mg tablet 10 mg PO DAILY 05/23/22 05/23/22 nifedipine 30 mg tablet,extended 30 mg PO DAILY 05/23/22 05/23/22 release nifedipine 90 mg tablet,extended 90 mg PO DAILY 05/23/22 05/23/22 release 24 hr pantoprazole 40 mg tablet,delayed 40 mg PO BID 05/23/22 05/23/22 release sevelamer carbonate 800 mg tablet 800 mg PO TIDWM 05/23/22 05/23/22 valsartan 320 mg tablet 320 mg PO DAILY 05/23/22 05/23/22 vitamin B complex 1 tab PO DAILY 05/23/22 05/23/22 Previous Rx's Medication Instructions Recorded aspirin 81 mg chewable tablet 81 mg G-tube DAILY 1 day #1 tab 05/24/22 heparin (porcine) 25,000 unit/250 25,000 unit (250 mL) continuous IV 05/24/22 mL in 0.45 % sodium chloride IV infusion .Q0M 1 day #1 mL soln Allergies Allergy/AdvReac Type Severity Reaction Status Date / Time No Known Allergies Allergy Verified 05/23/22 01:45 Review of Systems Review of Systems: Constitutional : No Weight loss, No Fever, No Chills, No Fatigue, No Malaise ENT/Mouth : No sore throat, No Rhinorrhea Eyes: No Eye Pain, No Swelling, No Redness Cardiovascular : No Chest Pain, No SOB, No Dyspnea on Exertion, No Orthopnea, No Edema, No Palpitations Respiratory : No Cough, No Sputum, No Wheezing Gastrointestinal : No Nausea, No Vomiting, No Diarrhea, No Constipation, No abdominal Pain, No Hematochezia, No Melena Genitourinary : No Dysuria, No Urinary Frequency, No Hematuria, Musculoskeletal : No joint pain, No Myalgias, No Joint Swelling Skin : No Skin Lesions, No rash Neuro : No Weakness, No Numbness, No Dizziness, No Headache Psych : No Anxiety/Panic, No Depression All other systems reviewed and are negative Yes all other systems are reviewed and are negative PMFSH Past Medical History Attestation statement: The following information was validated with the patient. Source: old records reviewed and nursing notes reviewed Medical History (Updated 08/23/22 @ 01:24 by LUIS MIGUEL Sheldon) End stage chronic kidney disease Essential hypertension Social History Social History Household Members: Other Household Members Other:: [facility] F[facility] Housing: Other Unable to assess alcohol history related to: Unable to respond Patient Tobacco Use Status: Tobacco use Unknown Advance Directives: Yes Advance Directives on File: Yes Advance Directives Date on File: 05/26/22 service: No Physical Exam ED Vital Signs: Vital Signs - 24 hr 08/22/22 18:45 08/22/22 20:10 08/22/22 20:14 Temperature 97.5 F Pulse Rate 74 96 69 Respiratory Rate 18 18 20 Blood Pressure 140/49 H 144/50 H 161/59 H Pulse Oximetry 97 98 100 Oxygen Delivery Method Room Air Room Air Room Air Oxygen Flow Rate 08/22/22 22:31 08/23/22 01:37 Temperature 98.3 F Pulse Rate 71 69 Respiratory Rate 16 17 Blood Pressure 165/60 H 196/51 H Pulse Oximetry 98 Oxygen Delivery Method Nasal Cannula Room Air Oxygen Flow Rate 2 BMI result Body Mass Index 0.0 vss Appearance: Alert.? Oriented X3.? No acute distress.? Head: Normocephalic, atraumatic, no step-offs or deformities Eyes: Pupils equal, round and reactive to light.? Neck: Normal inspection.? Neck supple.? CVS: Normal heart rate and rhythm.? Pulses normal.? Respiratory: No respiratory distress.? Breath sounds normal.? Abdomen: Soft and nontender.? Skin: Skin warm and dry.? Normal skin color.? Normal skin turgor.? Extremities: No lower extremity edema.? No calf ttp. 5/5 strength to bilateral upper extremities b/l amputation to lower extremities. Neuro: Oriented X 3.? No motor deficit.? No sensory deficit. CN 2-12 intact Course Course Course Narrative: Case discussed with doctors gregory, who recommends just transfusing w/ one unit. Highly recommends obs however aware that that patient refuses. Reevaluation(s) Reevaluation #1: CBC with leukopenia, noted to have a normocytic anemia likely secondary to CKD, chemistry with CKD, patient had dialysis today, appears to be around patient's baseline. Patient does not make urine will not obtain a urine sample. Patient refusing OBS. I explained him the importance of this test however continues to refuse verbalizes understanding of risks versus benefits. Verbal and written consent obtained for blood products as patient will be transfused with 1 unit of packed red blood cells. Time: 23:38 Reevaluation #2: Sign-out given to Pending transfusion, repeat labs, re-evaluation. Time: 03:20 Medical Decision Making MDM Narrative Medical decision making narrative: 2046 66-year-old male presents with low hemoglobin from assisted, annoyed to be here, no medical complaints PE unremarkable Likely him she anemia, will rule out GI bleed, electrolyte abnormalities, lab error. Plan at this time CBC, CMP and OBS. Medical Records Medical records reviewed: Yes I reviewed the patient's medical records. Lab Data Lab results reviewed: Yes I reviewed the patient's lab results. Result diagrams: 08/22/22 20:44 08/22/22 20:44 Labs: Lab Results 08/22/22 08/22/22 08/22/22 Range/Units 20:44 20:44 22:38 WBC 3.0 L (4.8-10.8) X10*3/uL RBC 2.12 L D (4.60-5.80) X10*6/uL Hgb 6.6 L* D (14.0-18.0) g/dl Hct 20.2 L* D (42.0-52.0) % MCV 95.3 (80.0-98.0) fL MCH 31.1 (27.0-33.0) pg MCHC 32.7 (31.0-36.0) g/dl RDW 18.1 H (11.0-16.0) % Plt Count 98 L D (160-400) X10*3/uL MPV 13.1 H (9.4-12.4) fL Immature Gran % (Auto) 0.3 (0.0-0.4) % Neut % (Auto) 69.4 (45-73) % Lymph % (Auto) 18.5 L (20-40) % Brown % (Auto) 8.1 (2-11) % Eos % (Auto) 3.4 (0-4) % Baso % (Auto) 0.3 (0-2) % Lymph # (Auto) 0.6 L (1.2-4.9) X10*3/uL Brown # (Auto) 0.2 (0.1-1.2) X10*3/uL Eos # (Auto) 0.1 (0.0-0.4) X10*3/uL Baso # (Auto) 0.0 (0.0-0.2) X10*3/uL Abs Immat Gran (auto) 0.01 (0.00-0.03) X10*3/uL Absolute Neuts (auto) 2.1 (2.0-8.3) x10*3/uL Absolute Nucleated RBC 0.000 (0.0-0.012) X10*3/uL Nucleated RBC % (auto) 0.0 (0.0-0.2) /100WBC Sodium 144 (135-145) mmol/L Potassium 3.7 (3.3-5.1) mmol/L Chloride 101 (96-108) mmol/L Carbon Dioxide 30 H (22-29) mmol/L Anion Gap 17 (12-20) BUN 19 H (9-16) mg/dL Creatinine 4.46 H* (0.5-1.4) mg/dL Estim Creat Clear Calc TNP Estimated GFR 13 Random Glucose 105 (60-115) mg/dL Calcium 8.8 (8.4-10.2) mg/dL Magnesium 1.8 (1.6-2.6) mg/dL Total Bilirubin 0.9 (0.0-1.0) mg/dL AST 26 (5-37) U/L ALT 13 (0-40) U/L Alkaline Phosphatase 149 H D (39-117) U/L Total Protein 7.7 (6.5-8.0) g/dL Albumin 4.1 (3.5-5.0) g/dL Blood Type O Positive Antibody Screen POSITIVE Antibody Identification Anti-e Crossmatch See Detail Crossmatch (AHG) See Detail Blood Bank Comment Specimen Critical Care Time Critical Care Time Critical Care Time: No Discharge Plan Discharge Clinical Impression: Anemia, CKD (chronic kidney disease) requiring chronic dialysis Patient Disposition: Still a Patient Instructions: Chronic Kidney Disease Diet (DC), Anemia (ED) Additional Instructions: Take your medications as prescribed. If you were prescribed antibiotics today, it is important that you take your medication to their entirety, do not skip any doses, do not finish them early. Follow-up with your primary care provider this week. Return to the emergency department with new or worsening symptoms. Such as fevers, chills, chest pain, shortness of breath, nausea, vomiting, dizziness, headache, vision changes, lethargy In case of emergency call 911 Prescriptions: No Action isosorbide mononitrate 30 mg tablet extended release 24 hr 1 tab PO DAILY atorvastatin 80 mg Tablet 80 mg PO BEDTIME brimonidine 0.2 % Drops 1 drp OPHTHALMIC (EYE) BID carvedilol 25 mg Tablet 50 mg PO BID Protocol: Hold for SBP< HOLD for SBP < : 110 Rx Instructions: must administer with a meal/food clonidine HCl 0.2 mg Tablet See Rx Instructions .ROUTE .COMPLEX Rx Instructions: TID ON 0.2 mg orally clonidine HCl 0.2 mg Tablet 0.2 mg PO WE@0900,2100 Rx Instructions: ALTERNATES 3 TIMES A DAY ON AND TWICE A DAY ON gabapentin 100 mg Capsule 100 mg PO DAILY levothyroxine 175 mcg Tablet 175 mcg PO DAILY@0600 minoxidil 10 mg Tablet 10 mg PO DAILY Protocol: Hold for SBP< HOLD for SBP < : 110 nifedipine 30 mg Tablet Extended Release 30 mg PO DAILY nifedipine 90 mg Tablet Extended Release 24hr 90 mg PO DAILY Protocol: Hold for SBP< HOLD for SBP < : 110 pantoprazole 40 mg Tablet,Delayed Release (Dr/Ec) 40 mg PO BID sevelamer carbonate 800 mg Tablet 800 mg PO TIDWM Rx Instructions: must administer with a meal/food valsartan 320 mg Tablet 320 mg PO DAILY Protocol: Hold for SBP< HOLD for SBP < : 110 acetaminophen 325 mg Tablet 650 mg PO Q6H PRN (Reason: Pain (Scale Score 4-6)) acetaminophen 650 mg Suppository 650 mg SD Q6H PRN (Reason: Pain (Scale Score 4-6)) bisacodyl 10 mg Suppository 10 mg SD DAILY PRN (Reason: IF MOM INEFFECTIVE FOR BM) docusate sodium 100 mg Capsule 100 mg PO BID vitamin B complex Tablet 1 tab PO DAILY ergocalciferol (vitamin D2) 1,250 mcg (50,000 unit) Capsule 1,250 mcg PO QMONTH aspirin 81 mg Tablet,Chewable 81 mg G-tube DAILY 1 Days Qty: 1 0RF heparin(porcine) in 0.45% NaCl 25,000 unit/250 mL Parenteral Solution 25,000 unit continuous IV infusion .Q0M 1 Days Qty: 1 0RF Referrals: Physician,Unknown J [Primary Care Provider] - 2 days
[2022-08-22 20:48] LABS: MANUAL DIFF FLAG NO
[2022-08-22 20:52] LABS: Basophils Percent Auto 0.3 % (0-2); Eosinophils Absolute Auto 0.1 X10*3/uL (0.0-0.4); Eosinophils Percent Auto 3.4 % (0-4); Imm Gran Abs Auto 0.01 X10*3/uL (0.00-0.03); Imm Gran Pct Auto 0.3 % (0.0-0.4); Lymphocytes Absolute Auto 0.6 X10*3/uL (1.2-4.9); Lymphocytes Percent Auto 18.5 % (20-40); Mean Corpuscular HGB Conc 32.7 g/dl (31.0-36.0); Mean Corpuscular Hemoglobin 31.1 pg (27.0-33.0); Mean Corpuscular Volume 95.3 fL (80.0-98.0); Mean Platelet Volume 13.1 fL (9.4-12.4); Monocytes Absolute Auto 0.2 X10*3/uL (0.1-1.2); Monocytes Percent Auto 8.1 % (2-11); Neutrophils Absolute Auto 2.1 x10*3/uL (2.0-8.3); Neutrophils Percent Auto 69.4 % (45-73); Red Blood Count 2.12 X10*6/uL (4.60-5.80); Red Cell Distribution Width 18.1 % (11.0-16.0)
[2022-08-22 21:00] LABS: Platelet Count 98 X10*3/uL (160-400)
[2022-08-22 21:03] LABS: Hematocrit 20.2 % (42.0-52.0); Hemoglobin 6.6 g/dl (14.0-18.0)
[2022-08-22 21:21] LABS: Alanine Aminotransferase 13 U/L (0-40); Albumin Level 4.1 g/dL (3.5-5.0); Alkaline Phosphatase 149 U/L (39-117); Anion Gap 17 (12-20); Aspartate Amino Transferase 26 U/L (5-37); Bilirubin Total 0.9 mg/dL (0.0-1.0); Blood Urea Nitrogen 19 mg/dL (9-16); Calcium 8.8 mg/dL (8.4-10.2); Carbon Dioxide 30 mmol/L (22-29); Chloride 101 mmol/L (96-108); Estimated Glomerular Filt Rate 13; Glucose Random 105 mg/dL (60-115); Magnesium 1.8 mg/dL (1.6-2.6); Potassium 3.7 mmol/L (3.3-5.1); Sodium 144 mmol/L (135-145); Total Protein 7.7 g/dL (6.5-8.0)
[2022-08-22 22:31] VITALS: BP 165/60; PULSE 71; RESP 16; O2SAT 98
[2022-08-23] VITALS (20 sets, daily range): BP systolic 156–223; BP diastolic 44–91; PULSE 61–76; RESP 13–22; TEMP 36.6–37.2; O2SAT 92–100
--- NOTE | 2022-08-23 02:12 | PC.NURSE ---
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
--- NOTE | 2022-08-23 03:07 | PC.NURSE ---
report given to PIERRE Scales
[2022-08-23] MEDS: carvediloL 25 MG TABLET PO ×2 (07:55→19:52)
[2022-08-23] MEDS: cloNIDine HCL 0.2 MG TABLET PO (07:55)
[2022-08-23] MEDS: NIFEdipine ER 30 MG TAB.ER.24 60 MG PO (07:56)
--- NOTE | 2022-08-23 08:57 | PC.NURSE ---
patient having no signs and symptoms of reactions to receiving blood products tolerating well . Patient was Hypertensive prior to starting infusion DR Covarrubias aware , patient has history of hypertension obtained order for home medications orders obtained and administered as ordered . 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 patient aware of plan of care .
--- NOTE | 2022-08-23 09:01 | PC.NURSE ---
patient a/ox4 . pearrla . breathing even and unlabored patient currently on 3lvia nasal canella o2 at 99%. lung slightly diminished . bilaterally double below knee amputee . skin is dusky warm and dry . patient is a dialysis patient which he received yesterday . patient no longer produces urine . abdomen is oft with positive bowel sounds , patient was able to transfer to wheel chair and use the bathroom to move his bowels this AM . Right arm has fistulla postive for thrill and brue , no BP or venipuncture on that side . patient aware of plan of care
--- NOTE | 2022-08-23 09:35 | PC.NURSE ---
Patient reports 7 out of pain level bilaterally in his stumps . Obtained an order for PRN oxycode 5mg from DR Perales . patient aware of plan of care .
[2022-08-23] MEDS: oxyCODONE HCl Immed Release 5 MG TABLET PO ×2 (09:38→20:22)
[2022-08-23] MEDS: amLODIPine Besylate 5 MG TABLET PO (11:27)
[2022-08-23] MEDS: Nitroglycerin 2 % Oint 1 GM Packet 1 INCH TRANSDERMA (11:48)
--- NOTE | 2022-08-23 11:50 | PC.NURSE ---
patient reports all of a sudden increased difficulty breathing and chest pain . patient positioned upright and assessed , crackles noted in lower lobes . Dr Rachel Luevano made aware . Portable Xray ordered and at bedside . Provider ordered nitro for chest pain administered as ordered . 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 patient made aware of plan of care .
--- NOTE | 2022-08-23 12:06 | ECG_ITS ---
Test Reason : SOB Blood Pressure : / mmHG Vent. Rate : 064 BPM Atrial Rate : 064 BPM P-R Int : 180 ms QRS Dur : 080 ms QT Int : 420 ms P-R-T Axes : 029 006 017 degrees QTc Int : 433 ms Normal sinus rhythm Nonspecific T wave abnormality Abnormal ECG When compared with ECG of 23-MAY-2022 07:59, Premature ventricular complexes are no longer Present Nonspecific T wave abnormality has replaced inverted T waves in Inferior leads T wave inversion no longer evident in Anterior leads QT has shortened Referred By: Sue Luevano Electronically Signed By:HÉCTOR ZUNIGA MD
--- NOTE | 2022-08-23 13:04 | PC.NURSE ---
Respiratory at bedside patient placed on BIPAP , tolerating well . patient aware of plan of care .
--- NOTE | 2022-08-23 13:04 | W.PM.CCCN ---
History of Present Illness Data of Consult Service Date: 08/23/22 Requesting physician: Braydon Padilla Primary Care Provider: Unknown Physician HPI Reason for consult: Acute pulmonary edema A 66-year-old end-stage renal disease left-sided fistula 3 time weekly chronic hemodialysis last treatment yesterday came in because of increasing weakness he was noted to be significantly more anemic than back in April apparently the hemoglobin about 6.6 and he was transfused 1 unit of red cells and he did started to become short of breath but he has co associated chest pressure sitting upright clearly increased work of breathing he has been given nitrates thus far no change in his clinical status is just given a high FiO2 and were going to switch him over to BiPAP the because in of this is presumptively CHF question of course is whether he has ischemic but thus far no improvement with the sublingual nitrate in sober regarding arrange for another dialysis and I approached him with the bedside echo because he has a history of having had at least a NSTEMI event back in April 3 months ago and he had about the 1800 on his troponin at that time they described a segmental wall motion abnormality involving the anterior 0 apical wall with an ejection fraction 20-25% but on today's study on he has got a borderline degree of hypertrophy concentric and he has got mild diffuse hypokinesis with with thinning and akinesis of the apex consistent with a previous infarct but is otherwise generally myopathic because he lacks a compensatory mechanism but he is on beta blockade in conjunction with Catapres and he is also was in a was severe chronic hypertensive but all of his medications here have? So I really do not know exactly what he is currently taking he had been on very high dose of valsartan and they have him here on nifedipine isosorbide in addition and of course being treated for hyperlipidemia with a toward the statin and he is on aspirin He is sitting up in full word the definitely appears to be in distress Review of Systems Review of Systems: No fever no chills no productive cough no hemoptysis Yes all other systems are reviewed and are negative [facility] Past Medical History Medical History (Updated 08/23/22 @ 13:13 by Braydon Padilla MD) Above knee amputation of left lower extremity Amputation above knee End stage chronic kidney disease Essential hypertension Ischemic cardiomyopathy Myocardial infarction involving left anterior descending (LAD) coronary artery Social History Social History Household Members: Other Household Members Other:: [facility] F[facility] Housing: Other Unable to assess alcohol history related to: Unable to respond Alcohol intake: former Patient Tobacco Use Status: Tobacco use Unknown Smoked in Last 30 Days: No Advance Directives: Yes Advance Directives on File: Yes Advance Directives Date on File: 05/26/22 service: No Meds Allergies Allergy/AdvReac Type Severity Reaction Status Date / Time No Known Allergies Allergy Verified 05/23/22 01:45 Active Medications: Current Medications Heparin Sodium (Porcine) (Heparin Sodium,Porcine 5,000 Unit/Ml Vial) 5,000 unit SUBCUT Q12H [facility] Pharmacy Consult (Consult Rx Perform Med Rec) 1 each MISCELLANE ONCE PRN PRN Reason: Consult order Home Medications Medication Instructions Recorded Confirmed Last Taken Type acetaminophen 325 mg tablet 650 mg PO Q6H PRN Pain (Scale 05/23/22 05/23/22 Unknown History Score 4-6) acetaminophen 650 mg rectal 650 mg [place] Q6H PRN Pain (Scale 05/23/22 05/23/22 Unknown History suppository Score 4-6) atorvastatin 80 mg tablet 80 mg PO BEDTIME 05/23/22 05/23/22 Unknown History bisacodyl 10 mg rectal suppository 10 mg [place] DAILY PRN IF MOM 05/23/22 05/23/22 Unknown History INEFFECTIVE FOR BM brimonidine 0.2 % eye drops 1 drp ophthalmic (eye) BID 05/23/22 05/23/22 Unknown History carvedilol 25 mg tablet 50 mg PO BID 05/23/22 05/23/22 Unknown History clonidine HCl 0.2 mg tablet 0.2 mg PO MOWEFR@0900,2100 05/23/22 05/23/22 Unknown History clonidine HCl 0.2 mg tablet See Rx Instructions .Route .COMPLEX 05/23/22 05/23/22 Unknown History docusate sodium 100 mg capsule 100 mg PO BID 05/23/22 05/23/22 Unknown History ergocalciferol (vitamin D2) 1,250 1,250 mcg PO QMONTH 05/23/22 05/23/22 05/19/22 History mcg (50,000 unit) capsule gabapentin 100 mg capsule 100 mg PO DAILY 05/23/22 05/23/22 Unknown History isosorbide mononitrate 30 mg 1 tab PO DAILY 05/23/22 05/23/22 Unknown History tablet,extended release 24 hr levothyroxine 175 mcg tablet 175 mcg PO DAILY@0600 05/23/22 05/23/22 Unknown History minoxidil 10 mg tablet 10 mg PO DAILY 05/23/22 05/23/22 Unknown History nifedipine 30 mg tablet,extended 30 mg PO DAILY 05/23/22 05/23/22 Unknown History release nifedipine 90 mg tablet,extended 90 mg PO DAILY 05/23/22 05/23/22 Unknown History release 24 hr pantoprazole 40 mg tablet,delayed 40 mg PO BID 05/23/22 05/23/22 Unknown History release sevelamer carbonate 800 mg tablet 800 mg PO TIDWM 05/23/22 05/23/22 Unknown History valsartan 320 mg tablet 320 mg PO DAILY 05/23/22 05/23/22 Unknown History vitamin B complex 1 tab PO DAILY 05/23/22 05/23/22 Unknown History Physical Exam Vital Signs: Vital Signs: Last Vital Signs Temp 98.2 F 08/23/22 10:19 Pulse 70 08/23/22 11:38 Resp 16 08/23/22 11:38 BP 182/78 H 08/23/22 11:38 Pulse Ox 99 08/23/22 11:38 O2 Del Method 08/23/22 11:38 O2 Flow Rate 3 08/23/22 11:38 BMI result Body Mass Index 0.0 Sitting bolt upright and somewhat tachypneic with little prolonged diaphragmatic effort Bedside echo with concentric hypertrophy mild diffuse hypokinesis lacking compensation and apical thinning and akinesis with 30-35% ejection fraction and aortic valve is mildly calcified trileaflet and is no critical stenosis no insufficiency and he only has mild to moderate mitral insufficiency and no effusion Prolonged bilateral expiratory time with mild scattered wheeze Abdomen soft no organomegaly Bilateral amputee and in addition on the echo he had he has some borderline distention of the inferior vena cava but a relative lack of inspiratory collapse Results Labs CBC & Chem 7: 08/22/22 20:44 08/22/22 20:44 Labs: Short CBC 08/22/22 Range/Units 20:44 WBC 3.0 L (4.8-10.8) X10*3/uL Hgb 6.6 L* D (14.0-18.0) g/dl Hct 20.2 L* D (42.0-52.0) % Plt Count 98 L D (160-400) X10*3/uL BMP 08/22/22 20:44 Sodium 144 Potassium 3.7 Chloride 101 Carbon Dioxide 30 H BUN 19 H Creatinine 4.46 H* Calcium 8.8 Liver Function 08/22/22 Range/Units 20:44 Total Bilirubin 0.9 (0.0-1.0) mg/dL AST 26 (5-37) U/L ALT 13 (0-40) U/L Alkaline Phosphatase 149 H D (39-117) U/L Albumin 4.1 (3.5-5.0) g/dL Assessment and Plan (1) Anemia: Status: Acute (2) CKD (chronic kidney disease) requiring chronic dialysis: Status: Acute (3) NSTEMI (non-ST elevated myocardial infarction): Status: Acute (4) Ischemic cardiomyopathy: Status: Acute (5) Myocardial infarction involving left anterior descending (LAD) coronary artery: Status: Acute Plan Recheck blood work and given the appearance of some volume overload will get a stat dialysis on him today continue to treat him with nitrates and place him on BiPAP and in the interim until we can initiate dialysis and will do follow-up troponin follow-up EKG and CBC to tract the improvement in his hemoglobin
--- NOTE | 2022-08-23 14:39 | PC.NURSE ---
Patient taken off BIPAP by RT to eat lunch approved by Dr. Luevano . Patient appears more comfortable put on 3l via nasal canella o2 level at 96% . patient aware of plan of care .
[2022-08-23 15:13] LABS: COVID-19 Test Negative (Negative); IDNOW Serial# 16C4AD1C
--- NOTE | 2022-08-23 15:18 | PHA.MEDREC ---
Pharmacy Consult ? Medication Reconciliation Pharmacy has completed the medication reconciliation. Patient came from [facility] with med list. Gia Lee, VarunD
--- NOTE | 2022-08-23 15:20 | PC.NURSE ---
Nurse to Nurse given to Whitney JAY on ICU . Jackeline RN to transfer patient to unit . patient aware of plan of care .
[2022-08-23 17:41] LABS: MANUAL DIFF FLAG NO
[2022-08-23 17:45] LABS: Basophils Percent Auto 0.4 % (0-2); Eosinophils Absolute Auto 0.2 X10*3/uL (0.0-0.4); Eosinophils Percent Auto 3.8 % (0-4); Hematocrit 30.4 % (42.0-52.0); Imm Gran Abs Auto 0.02 X10*3/uL (0.00-0.03); Imm Gran Pct Auto 0.4 % (0.0-0.4); Lymphocytes Absolute Auto 0.9 X10*3/uL (1.2-4.9); Lymphocytes Percent Auto 16.2 % (20-40); Mean Corpuscular HGB Conc 32.9 g/dl (31.0-36.0); Mean Corpuscular Hemoglobin 30.5 pg (27.0-33.0); Mean Corpuscular Volume 92.7 fL (80.0-98.0); Mean Platelet Volume 12.9 fL (9.4-12.4); Monocytes Absolute Auto 0.4 X10*3/uL (0.1-1.2); Monocytes Percent Auto 7.4 % (2-11); Neutrophils Absolute Auto 3.8 x10*3/uL (2.0-8.3); Neutrophils Percent Auto 71.8 % (45-73); Platelet Count 130 X10*3/uL (160-400); Red Blood Count 3.28 X10*6/uL (4.60-5.80); Red Cell Distribution Width 17.5 % (11.0-16.0); White Blood Count 5.2 X10*3/uL (4.8-10.8)
[2022-08-23 18:03] LABS: Troponin-I High Sensitivity 30.3 ng/L (<3.5-35.0)
[2022-08-23 18:09] LABS: Anion Gap 21 (12-20); Blood Urea Nitrogen 30 mg/dL (9-16); Calcium 9.2 mg/dL (8.4-10.2); Carbon Dioxide 24 mmol/L (22-29); Chloride 100 mmol/L (96-108); Estimated Glomerular Filt Rate 10; Glucose Random 137 mg/dL (60-115); Potassium 3.8 mmol/L (3.3-5.1); Sodium 141 mmol/L (135-145)
[2022-08-23] MEDS: Acetaminophen 325 MG TABLET PO (20:22)
[2022-08-24] MEDS: oxyCODONE HCl Immed Release 5 MG TABLET PO ×3 (01:34→10:29)
[2022-08-24] MEDS: hydrALAZINE HCl 20 MG/ML VIAL 10 MG IVPUSH (05:30)
[2022-08-24 05:37] LABS: PLT ABN DIST 1; SCAN SMEAR FLAG 1
[2022-08-24 05:39] LABS: Basophils Percent Auto 0.5 % (0-2); Eosinophils Absolute Auto 0.2 X10*3/uL (0.0-0.4); Eosinophils Percent Auto 4.6 % (0-4); Hematocrit 25.3 % (42.0-52.0); Hemoglobin 8.4 g/dl (14.0-18.0); Lymphocytes Absolute Auto 0.7 X10*3/uL (1.2-4.9); Lymphocytes Percent Auto 18.5 % (20-40); Mean Corpuscular HGB Conc 33.2 g/dl (31.0-36.0); Mean Corpuscular Hemoglobin 30.9 pg (27.0-33.0); Mean Platelet Volume 11.8 fL (9.4-12.4); Monocytes Absolute Auto 0.3 X10*3/uL (0.1-1.2); Monocytes Percent Auto 7.6 % (2-11); Neutrophils Absolute Auto 2.5 x10*3/uL (2.0-8.3); Neutrophils Percent Auto 68.8 % (45-73); Platelet Count 64 X10*3/uL (160-400); Red Blood Count 2.72 X10*6/uL (4.60-5.80); White Blood Count 3.7 X10*3/uL (4.8-10.8)
[2022-08-24 05:41] LABS: MANUAL DIFF FLAG NO
[2022-08-24 06:00] VITALS: BP 201/74; PULSE 70; RESP 13; O2SAT 100
[2022-08-24 06:10] LABS: Magnesium 1.9 mg/dL (1.6-2.6); Phosphorus 4.4 mg/dL (2.7-4.5)
[2022-08-24 06:19] LABS: Anion Gap 19 (12-20); Blood Urea Nitrogen 38 mg/dL (9-16); Calcium 8.7 mg/dL (8.4-10.2); Carbon Dioxide 25 mmol/L (22-29); Chloride 98 mmol/L (96-108); Estimated Glomerular Filt Rate 8; Glucose Random 81 mg/dL (60-115); Potassium 4.1 mmol/L (3.3-5.1); Sodium 138 mmol/L (135-145)
[2022-08-24] MEDS: hydrALAZINE HCl 20 MG/ML VIAL IVPUSH (06:30)
[2022-08-24 07:27] VITALS: BP 179/64; PULSE 75; RESP 16; TEMP 36.7; O2SAT 100
[2022-08-24 08:11] VITALS: BP 200/84; PULSE 80; RESP 19; O2SAT 100
[2022-08-24] MEDS: cloNIDine 0.2 MG PATCH.TDWK TRANSDERMA (08:15)
[2022-08-24] MEDS: Omeprazole 20 MG CAPSULE.DR PO (08:16)
[2022-08-24] MEDS: carvediloL 25 MG TABLET PO (08:16)
[2022-08-24] MEDS: Sevelamer Carbonate Tablet 800 MG TABLET PO ×2 (08:16→13:18)
[2022-08-24] MEDS: NIFEdipine ER 60 MG TAB.ER.24 PO (08:16)
[2022-08-24] MEDS: Aspirin 81 MG TAB.CHEW G-TUBE (08:16)
[2022-08-24] MEDS: Isosorbide Mononitrate 30 MG TAB.ER.24H PO (08:16)
[2022-08-24] MEDS: Gabapentin 100 MG CAPSULE PO (08:16)
[2022-08-24 08:19] VITALS: BP 200/84; PULSE 77
[2022-08-24] MEDS: cloNIDine HCL 0.2 MG TABLET PO (08:19)
--- NOTE | 2022-08-24 09:21 | HO.PM.IMPN ---
Subjective Subjective Date of Service: 08/24/22 Interval History: cc: sent in for anemia interval history: nausea Cardiovascular Cardiovascular: Reports no additional cardiovascular complaints Gastrointestinal Gastrointestinal: Reports no additional gastrointestinal complaints Physical Exam Vital Signs: Vital Signs: Last Vital Signs Temp 98.0 F 08/24/22 07:27 Pulse 77 08/24/22 08:19 Resp 19 08/24/22 08:11 BP 200/84 H 08/24/22 08:19 Pulse Ox 100 08/24/22 08:11 O2 Del Method 08/24/22 08:11 O2 Flow Rate 3 08/24/22 08:11 BMI result Body Mass Index 0.0 General: AO X 3, no acute distress Resp: CTA bilateral, no accessory muscles used CVS: S1,S2,RRR GI: soft, non tender, non distended Neuro: motor grossly intact, alert Psych: appropriate affect, appropriate insight bilateral aka Objective Data Active Medications Aspirin (Aspirin 81 Mg Tab.Chew) 81 mg G-TUBE DAILY [facility] Last Admin: 08/24/22 08:16 Dose: 81 mg Documented By: JEIMY Atorvastatin Calcium (Atorvastatin Calcium 80 Mg Tablet) 80 mg PO BEDTIME [facility] Carvedilol (Carvedilol 25 Mg Tablet) 25 mg PO BID [facility]; Protocol Last Admin: 08/24/22 08:16 Dose: 25 mg Documented By: JEIMY Clonidine HCl (Clonidine Hcl 0.2 Mg Tablet) 0.2 mg PO SuTuTh@0900 [facility]; Protocol Last Admin: 08/24/22 08:19 Dose: 0.2 mg Documented By: JEIMY Gabapentin (Gabapentin 100 Mg Capsule) 100 mg PO DAILY [facility] Last Admin: 08/24/22 08:16 Dose: 100 mg Documented By: JEIMY Heparin Sodium (Porcine) (Heparin Sodium,Porcine 5,000 Unit/Ml Vial) 5,000 unit SUBCUT Q12H [facility] Last Admin: 08/24/22 01:28 Dose: Not Given Documented By: BERNADETTE Non-Admin Reason: Patient Refused Isosorbide Mononitrate (Isosorbide Mononitrate 30 Mg Tab.Er.24h) 30 mg PO DAILY [facility]; Protocol Last Admin: 08/24/22 08:16 Dose: 30 mg Documented By: JEIMY Levothyroxine Sodium (Levothyroxine Sodium 200 Mcg Tablet) 200 mcg PO DAILY@0600 [facility] Nifedipine (Nifedipine Er 60 Mg Tab.Er.24) 60 mg PO DAILY [facility]; Protocol Last Admin: 08/24/22 08:16 Dose: 60 mg Documented By: JEIMY Non-Formulary Medication (Cholecalciferol (Vitamin D3)) 1,250 mcg PO Q28D [facility] Last Admin: 08/24/22 08:19 Dose: Not Given Documented By: JEIMY Non-Admin Reason: Med Not Available Omeprazole (Omeprazole 20 Mg Capsule.Dr) 20 mg PO BID [facility] Last Admin: 08/24/22 08:16 Dose: 20 mg Documented By: JEIMY Oxycodone HCl (Oxycodone Hcl Immed Release 5 Mg Tablet) 5 mg PO Q4H PRN PRN Reason: Pain, Moderate (Pain Scale 4-6 Last Admin: 08/24/22 05:07 Dose: 5 mg Documented By: BERNADETTE Pharmacy Consult (Consult Rx Perform Med Rec) 1 each MISCELLANE ONCE PRN PRN Reason: Consult order Sevelamer Carbonate (Sevelamer Carbonate Tablet 800 Mg Tablet) 800 mg PO TIDWM [facility] Last Admin: 08/24/22 08:16 Dose: 800 mg Documented By: JEIMY Labs CBC & Chem 7: 08/24/22 05:23 08/24/22 05:23 Labs: Laboratory Results - last 24 hr 08/22/22 08/23/22 08/23/22 22:38 14:47 17:12 MCV 92.7 MCH 30.5 MCHC 32.9 RDW 17.5 H Plt Count 130 L D MPV 12.9 H Immature Gran % (Auto) 0.4 Neut % (Auto) 71.8 Lymph % (Auto) 16.2 L Butts % (Auto) 7.4 Eos % (Auto) 3.8 Baso % (Auto) 0.4 Lymph # (Auto) 0.9 L Butts # (Auto) 0.4 Eos # (Auto) 0.2 Baso # (Auto) 0.0 Abs Immat Gran (auto) 0.02 Absolute Neuts (auto) 3.8 Absolute Nucleated RBC 0.000 Nucleated RBC % (auto) 0.0 Anion Gap Estim Creat Clear Calc Estimated GFR Random Glucose Calcium Phosphorus Magnesium Troponin I High Sens COVID-19 (ELENA) Negative COVID-19 Clin Com See Note Blood Type O Positive Antibody Screen POSITIVE Antibody Identification Anti-e FATUMA, Polyspecific NEGATIVE Positive FATUMA Work-up TNP Crossmatch See Detail Crossmatch ([facility]) See Detail Blood Bank Comment Specimen 08/23/22 08/23/22 08/24/22 17:12 17:12 05:23 MCV 93.0 MCH 30.9 MCHC 33.2 RDW 17.0 H Plt Count 64 L D MPV 11.8 Immature Gran % (Auto) 0.0 Neut % (Auto) 68.8 Lymph % (Auto) 18.5 L Butts % (Auto) 7.6 Eos % (Auto) 4.6 H Baso % (Auto) 0.5 Lymph # (Auto) 0.7 L Butts # (Auto) 0.3 Eos # (Auto) 0.2 Baso # (Auto) 0.0 Abs Immat Gran (auto) 0.00 Absolute Neuts (auto) 2.5 Absolute Nucleated RBC 0.000 Nucleated RBC % (auto) 0.0 Anion Gap 21 H Estim Creat Clear Calc TNP Estimated GFR 10 Random Glucose 137 H Calcium 9.2 Phosphorus Magnesium Troponin I High Sens 30.3 COVID-19 (ELENA) COVID-[employer] [facility] Blood Type Antibody Screen Antibody Identification FATUMA, Polyspecific Positive FATUMA Work-up Crossmatch Crossmatch ([facility]) Blood Bank Comment 08/24/22 08/24/22 05:23 05:23 MCV MCH MCHC RDW Plt Count MPV Immature Gran % (Auto) Neut % (Auto) Lymph % (Auto) Butts % (Auto) Eos % (Auto) Baso % (Auto) Lymph # (Auto) Butts # (Auto) Eos # (Auto) Baso # (Auto) Abs Immat Gran (auto) Absolute Neuts (auto) Absolute Nucleated RBC Nucleated RBC % (auto) Anion Gap 19 Estim Creat Clear Calc TNP Estimated GFR 8 Random Glucose 81 Calcium 8.7 Phosphorus 4.4 Magnesium 1.9 Troponin I High Sens COVID-19 (ELENA) COVID-[employer] [facility] Blood Type Antibody Screen Antibody Identification FATUMA, Polyspecific Positive FATUMA Work-up Crossmatch Crossmatch ([facility]) Blood Bank Comment Assessment and Plan (1) Ischemic cardiomyopathy: Status: Acute Plan 66M pmh ischemic cardiomyopathy EF 20-25%, HTN, ESRD, CAD s/p CABG, DM, bilateral AKA, was sent in for anemia of CKD for transfusion for hgb 6.3. underwent transfusion then started to have SOB, pulm edema, requiring BIPAP, and emergent HD, now improved, downgraded from ICU acute hypoxic respiratory failure due to acute on chronic systolic chf, pulmonary edema in ESRD and uncontrolled hypertension. improved with HD and bipap wean o2 as toelrated conitnue coreg, clonidine, imdur, nifedipine CAD asa, statin reported history of DM not on meds at home, normoglycemic here, check a1c hypothryoid synthroid anemia of CKD monitor cbc dvt prophylaxis - heparin sq DNR reason for continued hospitalization: uncontrolled bp Quality Stroke Does the patient have a stroke diagnosis?: No VTE Prior VTE?: No VTE Risk Level:: Medical - moderate - high VTE Device Contraindication: Treatment Not Tolerated VTE Drug Contraindication: N/A - Med Ordered
[2022-08-24 09:43] LABS: Estimated Average Glucose 77 mg/dL; Hemoglobin A1c % 4.3 %
[2022-08-24 09:58] VITALS: BP 186/72; PULSE 78
--- NOTE | 2022-08-24 09:58 | PC.NURSE ---
Patient requesting to be discharged. BP down to 186/72 after clonidine patient and AM meds administration. MD notified. Patient educated by this RN and MD via portable phone of risks of leaving with uncontrolled BP. Patient requesting to leave AMA. MD, case management, and nursing supervisor wood room aware. Patient reports unable to arrange own transportation.
--- NOTE | 2022-08-24 10:03 | PM.DS ---
DS: Providers Provider Date of Service: 08/24/22 Date of admission: 08/23/22 12:52 Primary care physician: Unknown Physician DS: Diagnosis Discharge Diagnosis (1) Ischemic cardiomyopathy: Status: Acute DS: Summary Hospital Course Hospital Course: from initial hpi: Reason for consult: Acute pulmonary edema A 66-year-old end-stage renal disease left-sided fistula 3 time weekly chronic hemodialysis last treatment yesterday came in because of increasing weakness he was noted to be significantly more anemic than back in April apparently the hemoglobin about 6.6 and he was transfused 1 unit of red cells and he did started to become short of breath but he has co associated chest pressure sitting upright clearly increased work of breathing he has been given nitrates thus far no change in his clinical status is just given a high FiO2 and were going to switch him over to BiPAP the because in of this is presumptively CHF question of course is whether he has ischemic but thus far no improvement with the sublingual nitrate in sober regarding arrange for another dialysis and I approached him with the bedside echo because he has a history of having had at least a NSTEMI event back in April 3 months ago and he had about the 1800 on his troponin at that time they described a segmental wall motion abnormality involving the anterior 0 apical wall with an ejection fraction 20-25% but on today's study on he has got a borderline degree of hypertrophy concentric and he has got mild diffuse hypokinesis with with thinning and akinesis of the apex consistent with a previous infarct but is otherwise generally myopathic because he lacks a compensatory mechanism but he is on beta blockade in conjunction with Catapres and he is also was in a was severe chronic hypertensive but all of his medications here have?? So I really do not know exactly what he is currently taking he had been on very high dose of valsartan and they have him here on nifedipine isosorbide in addition and of course being treated for hyperlipidemia with a toward the statin and he is on aspirin He is sitting up in full word the definitely appears to be in distress hospital course: Patient was admitted for acute hypoxic respiratory failure secondary to acute on chronic systolic CHF and pulmonary edema and end-stage renal disease patient with uncontrolled hypertension and blood transfusion. He was treated with emergent hemodialysis and BiPAP and pulmonary edema resolved as did hypoxia and shortness of breath. He was restarted on his blood pressure medications, however, blood pressure is still not adequately controlled concern for recurrence of pulmonary edema, however, patient did not want to stay in the hospital and want to leave against medical advice. He was aware of the risk of doing so including . First coronary disease is continue aspirin statin. There was mention of diabetes in his medical history, however, his hemoglobin A1c is 4.3 needs not on home medications, either this is remote or incorrect. For his hypothyroidism he was continue on Synthroid. For his anemia of CKD was transfused and hemoglobin improved appropriately. Time Spent with Patient Time attestation: Total time spent providing and/or coordinating discharge services: Discharge coordination time: Greater than 30 minutes Quality: Safe Use of Opioids Does Pt have an Active Cancer Diagnosis on the Problem List?: No Quality: Stroke Does the patient have a stroke diagnosis?: No Physical Exam Vital Signs: Vital Signs: Last Vital Signs Temp 98.0 F 08/24/22 07:27 Pulse 78 08/24/22 09:58 Resp 19 08/24/22 08:11 BP 186/72 H 08/24/22 09:58 Pulse Ox 100 08/24/22 08:11 O2 Del Method 08/24/22 08:11 O2 Flow Rate 3 08/24/22 08:11 BMI result Body Mass Index 0.0 General: AO X 3, no acute distress Resp: CTA bilateral, no accessory muscles used CVS: S1,S2,RRR GI: soft, non tender, non distended Neuro: motor grossly intact, alert Psych: appropriate affect, appropriate insight bilateral aka DS: Data Data Completed and Pending Completed studies during hospitalization [Text1]: Procedures Insertion of Endotracheal Airway into Trachea, Via Natural or Artificial Opening (05/23/22) Insertion of Infusion Device into Superior Vena Cava, Percutaneous Approach (05/23/22) Performance of Urinary Filtration, Intermittent, Less than 6 Hours Per Day (05/23/22) Respiratory Ventilation, Less than 24 Consecutive Hours (05/23/22) Ultrasonography of Superior Vena Cava, Guidance (05/23/22) Labs on day of discharge: Laboratory Results - last 24 hr 08/22/22 08/23/22 08/23/22 22:38 14:47 17:12 WBC 5.2 RBC 3.28 L D Hgb 10.0 L D Hct 30.4 L D MCV 92.7 MCH 30.5 MCHC 32.9 RDW 17.5 H Plt Count 130 L D MPV 12.9 H Immature Gran % (Auto) 0.4 Neut % (Auto) 71.8 Lymph % (Auto) 16.2 L Barry % (Auto) 7.4 Eos % (Auto) 3.8 Baso % (Auto) 0.4 Lymph # (Auto) 0.9 L Barry # (Auto) 0.4 Eos # (Auto) 0.2 Baso # (Auto) 0.0 Abs Immat Gran (auto) 0.02 Absolute Neuts (auto) 3.8 Absolute Nucleated RBC 0.000 Nucleated RBC % (auto) 0.0 Sodium Potassium Chloride Carbon Dioxide Anion Gap BUN Creatinine Estim Creat Clear Calc Estimated GFR Random Glucose Estimat Average Glucose Hemoglobin A1c % Calcium Phosphorus Magnesium Troponin I High Sens COVID-19 (ELENA) Negative COVID-19 Clin Com See Note Blood Type O Positive Antibody Screen POSITIVE Antibody Identification Anti-e FATUMA, Polyspecific NEGATIVE Positive FATUMA Work-up TNP Crossmatch See Detail Crossmatch ([facility]) See Detail Blood Bank Comment Specimen 08/23/22 08/23/22 08/24/22 17:12 17:12 05:23 WBC 3.7 L RBC 2.72 L Hgb 8.4 L Hct 25.3 L MCV 93.0 MCH 30.9 MCHC 33.2 RDW 17.0 H Plt Count 64 L D MPV 11.8 Immature Gran % (Auto) 0.0 Neut % (Auto) 68.8 Lymph % (Auto) 18.5 L Barry % (Auto) 7.6 Eos % (Auto) 4.6 H Baso % (Auto) 0.5 Lymph # (Auto) 0.7 L Barry # (Auto) 0.3 Eos # (Auto) 0.2 Baso # (Auto) 0.0 Abs Immat Gran (auto) 0.00 Absolute Neuts (auto) 2.5 Absolute Nucleated RBC 0.000 Nucleated RBC % (auto) 0.0 Sodium 141 Potassium 3.8 Chloride 100 Carbon Dioxide 24 Anion Gap 21 H BUN 30 H Creatinine 5.67 H* Estim Creat Clear Calc TNP Estimated GFR 10 Random Glucose 137 H Estimat Average Glucose Hemoglobin A1c % Calcium 9.2 Phosphorus Magnesium Troponin I High Sens 30.3 COVID-19 (ELENA) COVID-19 Clin Com Blood Type Antibody Screen Antibody Identification FATUMA, Polyspecific Positive FATUMA Work-up Crossmatch Crossmatch ([facility]) Blood Bank Comment 08/24/22 08/24/22 08/24/22 05:23 05:23 05:23 WBC RBC Hgb Hct MCV MCH MCHC RDW Plt Count MPV Immature Gran % (Auto) Neut % (Auto) Lymph % (Auto) Barry % (Auto) Eos % (Auto) Baso % (Auto) Lymph # (Auto) Barry # (Auto) Eos # (Auto) Baso # (Auto) Abs Immat Gran (auto) Absolute Neuts (auto) Absolute Nucleated RBC Nucleated RBC % (auto) Sodium 138 Potassium 4.1 Chloride 98 Carbon Dioxide 25 Anion Gap 19 BUN 38 H Creatinine 6.96 H* Estim Creat Clear Calc TNP Estimated GFR 8 Random Glucose 81 Estimat Average Glucose 77 Hemoglobin A1c % 4.3 Calcium 8.7 Phosphorus 4.4 Magnesium 1.9 Troponin I High Sens COVID-19 (ELENA) COVID-19 Clin Com Blood Type Antibody Screen Antibody Identification FATUMA, Polyspecific Positive FATUMA Work-up Crossmatch Crossmatch ([facility]) Blood Bank Comment Discharge Plan Discharge Anticipated Discharge Date/Time: 08/24/22 09:59 Patient Disposition: Left Against Medical Advice Discharge Diagnosis: pulm edema, chf Referrals: Physician,Unknown J [Primary Care Provider] - 2 days Discharge Medications: No Action Epogen 20,000 unit/mL Solution 20,000 unit SUBCUT MOWEFR Rx Instructions: Give at diaylsis nifedipine 60 mg Tablet Extended Release 24hr 60 mg PO DAILY levothyroxine 200 mcg Tablet 200 mcg PO DAILY@0600 cholecalciferol (vitamin D3) 1,250 mcg (50,000 unit) Capsule 1,250 mcg PO QMONTH Rx Instructions: Every month on the isosorbide mononitrate 30 mg tablet extended release 24 hr 1 tab PO DAILY atorvastatin 80 mg Tablet 80 mg PO BEDTIME brimonidine 0.2 % Drops 1 drp OPHTHALMIC (EYE) BID carvedilol 25 mg Tablet 25 mg PO BID Protocol: Hold for SBP< HOLD for SBP < : 110 Rx Instructions: must administer with a meal/food clonidine HCl 0.2 mg Tablet 0.2 mg PO SuTuTh@0900 gabapentin 100 mg Capsule 100 mg PO DAILY pantoprazole 40 mg Tablet,Delayed Release (Dr/Ec) 40 mg PO BID sevelamer carbonate 800 mg Tablet 800 mg PO TIDWM Rx Instructions: must administer with a meal/food acetaminophen 325 mg Tablet 650 mg PO Q6H PRN (Reason: Pain (Scale Score 4-6)) acetaminophen 650 mg Suppository 650 mg PA Q6H PRN (Reason: Pain (Scale Score 4-6)) bisacodyl 10 mg Suppository 10 mg PA DAILY PRN (Reason: IF MOM INEFFECTIVE FOR BM) docusate sodium 100 mg Capsule 100 mg PO BID vitamin B complex Tablet 1 tab PO DAILY aspirin 81 mg Tablet,Chewable 81 mg G-tube DAILY 1 Days Qty: 1 0RF Discharge Orders: Discharge Order (Routine); Ordered 08/24/22 Ordered By: Wesly Quintana Diet: Low salt diet Activity on Discharge: As tolerated Activity Restrictions/Additional Instructions: Take your medications as prescribed. If you were prescribed antibiotics today, it is important that you take your medication to their entirety, do not skip any doses, do not finish them early. Follow-up with your primary care provider this week. Return to the emergency department with new or worsening symptoms. Such as fevers, chills, chest pain, shortness of breath, nausea, vomiting, dizziness, headache, vision changes, lethargy In case of emergency call 911 Care Plan Goals: manage bp Health Concerns: uncontrolled bp, frequent pulm edema Plan of Treatment: ideally would stay in hospital for better bp control and monitoring, take meds as prescribed Assessment: see above Patient Instructions: Chronic Kidney Disease Diet (DC), Anemia (ED)
--- NOTE | 2022-08-24 10:24 | MHC.CM.PN ---
PER REVIEW OF NOTES, PATIENT HAS HCP ON FILE. HE HAS BEEN INDEPENDENT WITH HIS ADLS AT [facility] [place]. REFERRAL PLACED FOR PT TO RETURN HE WANTS TO LEAVE (REFUSES TO STAY) HE ASKS THIS PARTS IDENTIFICATION TECHNICIAN TO HAVE ME OUT BY 3 T/W EXPLAINED THAT BEST EFFORTS WILL BE DONE BUT T/W IS RELYING ON [facility] [place] TO RESPOND IN COMMUNICATIONS TO VERIFY HIS RETURN. T/W TO KEEP RN INFORMED
--- NOTE | 2022-08-24 11:33 | MHC.CM.PN ---
THIS [employer] REDEVELOPMENT SPECIALIST SPOKE WITH RN, JOSE OF [facility] ([phone]) JOSE WAS INFORMED THAT THERE IS NO RESPONSE IN CAREPORT REQUEST FOR PATIENT TO RETURN PATIENT IS LEAVING AMA. DC SUMMARY EXPLAINED OVER THE PHONE. 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 ON SECOND PHONE CALL WITH JOSE, SHE SUGGEST PATIENT RETURN TO FACILITY. [facility] TO TRANSPORT FOR APPROX. 2 PM.
--- NOTE | 2022-08-24 14:47 | MHC.CM.PN ---
POST DC NOTE PIERRE GARCIA CALLED AND REQUESTED DC SUMMARY SUMMARY FAXED TO HER ATTENTION AT [phone]
== END 2022-08-24 14:12 | disposition left against medical advice (07) | DRG 194 ==
LOC: HO.ED 08-23 03:21 → HO.EDOVER 08-23 13:07 → HO.ICU 08-23 14:20
PROVIDERS: Emergency Medicine; Nurse Practitioner Family; Physician Assistant; Admitting Provider Internal Medicine Cardiovascular Disease; Emergency Provider Internal Medicine; PCP Internal Medicine; Visit Provider Internal Medicine
DX: I13.2 Hypertensive heart and chronic kidney disease with heart failure and with stage 5 chronic kidney disease, or end stage renal disease (principal); J96.01 Acute respiratory failure with hypoxia; I50.23 Acute on chronic systolic (congestive) heart failure; N18.6 End stage renal disease; D63.1 Anemia in chronic kidney disease; Z89.611 Acquired absence of right leg above knee; I34.0 Nonrheumatic mitral (valve) insufficiency; E11.22 Type 2 diabetes mellitus with diabetic chronic kidney disease; I25.5 Ischemic cardiomyopathy; Z66 Do not resuscitate; Z99.2 Dependence on renal dialysis; Z89.612 Acquired absence of left leg above knee; Z20.822 Contact with and (suspected) exposure to COVID-19; I25.2 Old myocardial infarction; Z79.82 Long term (current) use of aspirin; Z79.890 Hormone replacement therapy; Z79.899 Other long term (current) drug therapy
CPT/HCPCS: 36415; 71045; 80048; 80053; 83036; 83735; 84100; 84484; 85025; 86850; 86870; 86880; 86885; 86900; 86901; 86905; 86920; 86922; 87635; 90999; 93005; 94660; 99285; P9016

== ENCOUNTER 2022-09-06 01:23 | Inpatient (IN) | payer MEDICAID, SELFPAY ==
[2022-09-06] VITALS (30 sets, daily range): BP systolic 110–217; BP diastolic 46–98; PULSE 60–108; RESP 10–41; TEMP 36.3–36.8; O2SAT 89–100; BMI 20.9; BMI 21.2
--- NOTE | ~2022-09-06 | XR_ITS ---
EXAMINATION: XR CHEST CLINICAL INFORMATION: Shortness of breath. COMPARISON: 09/06/2022 chest radiograph. TECHNIQUE: Frontal view of the chest was obtained. FINDINGS: Rotated and kyphotic positioning is suboptimal. Increased pulmonary vascular markings are seen with mild bibasilar opacification, right greater than left. The heart is mildly enlarged. The mediastinal structures are unremarkable. Left axillary vascular stent again noted in place. XR/XR chest 1V IMPRESSION: Mild congestion and small bilateral pleural effusions, right greater than left representing mild interval worsening.
--- NOTE | ~2022-09-06 | US_ITS ---
EXAMINATION: US ABDOMEN COMPLETE CLINICAL INFORMATION: Pancytopenia, rule out liver disease and splenomegaly. COMPARISON: X-ray abdomen KUB 05/23/2022. TECHNIQUE: Real-time imaging of the abdominal viscera. Technically limited study secondary to bowel gas. FINDINGS: PANCREAS: Largely obscured by overlapping bowel gas. ABDOMINAL AORTA: The proximal segment is normal in caliber. The mid and distal segments are obscured by overlapping bowel gas. INFERIOR VENA CAVA: Visualized portions are normal. LIVER: The liver is normal in size. The liver contour is normal. There is diffuse increased liver parenchymal echogenicity. No focal hepatic lesion. There is no intrahepatic biliary duct dilatation seen. GALLBLADDER: There is a 1.7 cm shadowing gallstone. The gallbladder is physiologically distended. There is gallbladder wall thickening to 7 mm. There are calcifications with shadowing within the gallbladder wall and minimal polyps, suggesting cholesterolosis. No evidence of pericholecystic fluid. COMMON BILE DUCT: Normal in caliber measuring 0.5 cm in diameter. RIGHT KIDNEY: There is increased renal cortical echotexture. No hydronephrosis. There are tiny cortical calcifications, with twinkle artifact. No solid parenchymal lesion is seen. The kidney measures 11.7 cm in maximum dimension. LEFT KIDNEY: There is increased renal cortical echotexture. There is renal cortical thinning. No hydronephrosis. There are tiny cortical calcifications, twinkle artifact. No solid parenchymal lesion is seen. The kidney measures 7.9 cm in maximum dimension. There are simple cysts, the largest at the lower pole measuring 1.2 cm in maximal diameter. SPLEEN: No focal finding. The spleen measures 15.1 cm in maximum dimension. FREE FLUID: None. US/US abdomen complete IMPRESSION: 1. There is cholelithiasis. There is gallbladder wall thickening without pericholecystic fluid, suggesting chronic cholecystitis. There are additional gallbladder findings consistent with cholesterolosis. 2. There are findings consistent with end-stage renal disease. There are tiny nonobstructing bilateral renal calculi and/or foci of parenchymal mineralization. 3. There is generalized increase in hepatic echotexture, consistent with fatty infiltration or hepatocellular disease. Please correlate clinically. No focal hepatic mass or intrahepatic biliary dilatation is seen. 4. Technically limited ultrasound examination, as detailed.
--- NOTE | ~2022-09-06 | XR_ITS ---
EXAMINATION: XR CHEST CLINICAL INFORMATION: Weakness. COMPARISON: Chest 08/23/2022. TECHNIQUE: Frontal view of the chest was obtained. FINDINGS: Cardiac silhouette is normal in size. Mild blunting of the right costophrenic sulcus is noted and density likely representing fluid in the minor fissure is identified. Mild right base airspace opacity noted. Diffuse fine pulmonary reticular opacities and vascular indistinctness visualized. Multiple unfractured median sternotomy wires. Left axillary vascular stent. XR/XR chest 1V IMPRESSION: *Small right pleural effusion similar in size to findings present 08/23/2022. *Mild pulmonary interstitial edema.
--- NOTE | 2022-09-06 01:37 | ECG_ITS ---
Test Reason : ABNORMAL LABS Blood Pressure : / mmHG Vent. Rate : 070 BPM Atrial Rate : 070 BPM P-R Int : 184 ms QRS Dur : 080 ms QT Int : 398 ms P-R-T Axes : 031 010 -74 degrees QTc Int : 429 ms Normal sinus rhythm Septal infarct , age undetermined T wave abnormality, consider inferolateral ischemia Abnormal ECG When compared with ECG of 23-AUG-2022 12:20, Inverted T waves have replaced nonspecific T wave abnormality in Inferior leads T wave inversion now evident in Anterior leads Referred By: Ligia Oakley Electronically Signed By:LUCIAN OQUENDO MD
--- NOTE | 2022-09-06 01:39 | ED.RECABL ---
HPI - Recheck/Abnormal Lab/Rx General Chief Complaint: Recheck/Abnormal Lab/Rx Stated Complaint: Abnormal Labs Time Seen by Provider: 09/06/22 01:33 Source: patient, EMS and old records reviewed Mode of arrival: EMS Limitations: no limitations History of Present Illness HPI narrative: 67 yo male with hx of chronic anemia - pancytopenia, CKD on HD MWF did receive typical session on Thursday, NSTEMI, GIB, frequent transfusions with hx of TACO, HCV cirrhosis, DM, HLD, HTN, PAD, PVD, bilateral AKA, seizures, RLS comes from SNF with with c/o weakness since his HD session and was found to have hemoglobin of 6.9. He wants a transfusion. Has had multiple GI workup in the past and they feel his anemia is multifactorial and related to his chronic disease. He denies CP/SOB to me but also reports some gas in his abdomen. MD complaint: abnormal lab Initial visit (ago): hour(s) Initial visit for: other Returns today for: called because of abnormal lab/test Description of abnormal result: hemoglobin 6.9 Symptoms since prior visit: no new symptoms Context: called for abnormal lab result Associated symptoms: malaise Related Data Home Medications Medication Instructions Recorded Confirmed acetaminophen 325 mg tablet 650 mg PO Q6H PRN Pain (Scale 05/23/22 08/23/22 Score 4-6) acetaminophen 650 mg rectal 650 mg KS Q6H PRN Pain (Scale 05/23/22 08/23/22 suppository Score 4-6) atorvastatin 80 mg tablet 80 mg PO BEDTIME 05/23/22 08/23/22 bisacodyl 10 mg rectal suppository 10 mg KS DAILY PRN IF MOM 05/23/22 08/23/22 INEFFECTIVE FOR BM brimonidine 0.2 % eye drops 1 drp ophthalmic (eye) BID 05/23/22 08/23/22 carvedilol 25 mg tablet 25 mg PO BID 05/23/22 08/23/22 clonidine HCl 0.2 mg tablet 0.2 mg PO SuTuTh@0900 05/23/22 08/23/22 docusate sodium 100 mg capsule 100 mg PO BID 05/23/22 08/23/22 gabapentin 100 mg capsule 100 mg PO DAILY 05/23/22 08/23/22 isosorbide mononitrate 30 mg 1 tab PO DAILY 05/23/22 08/23/22 tablet,extended release 24 hr pantoprazole 40 mg tablet,delayed 40 mg PO BID 05/23/22 08/23/22 release sevelamer carbonate 800 mg tablet 800 mg PO TIDWM 05/23/22 08/23/22 vitamin B complex 1 tab PO DAILY 05/23/22 08/23/22 cholecalciferol (vitamin D3) 1,250 1,250 mcg PO QMONTH 08/23/22 08/23/22 mcg (50,000 unit) capsule epoetin shayla 20,000 unit/mL 20,000 unit subcut MOWEFR 08/23/22 08/23/22 injection solution (Epogen) levothyroxine 200 mcg tablet 200 mcg PO DAILY@0600 08/23/22 08/23/22 nifedipine 60 mg tablet,extended 60 mg PO DAILY 08/23/22 08/23/22 release 24 hr Previous Rx's Medication Instructions Recorded aspirin 81 mg chewable tablet 81 mg G-tube DAILY 1 day #1 tab 05/24/22 Allergies Allergy/AdvReac Type Severity Reaction Status Date / Time bee pollen [bee stings] Allergy Angioedema Verified 09/06/22 01:36 lisinopril Allergy Cough Verified 09/06/22 01:35 Review of Systems Review of Systems: Constitutional : No Fever, No Chills ENT/Mouth : No sore throat, No Rhinorrhea, No Swallowing Difficulty Eyes: No Eye Pain, No Swelling, No Redness Cardiovascular : No Chest Pain, no SOB, No Orthopnea, no Edema Respiratory : No Cough, No Sputum, No Wheezing, no dyspnea Gastrointestinal : No Nausea, No Vomiting, No Diarrhea, No abdominal Pain, No Hematochezia, No Melena Genitourinary : No Dysuria, No Urinary Frequency, No Hematuria Musculoskeletal : No joint pain, No Myalgias Skin : No Skin Lesions, No rash Neuro : pos Weakness, No Numbness, No Dizziness, No Headache Psych : No Anxiety/Panic, No Depression Heme/Lymph: No Bruising, No Lymphadenopathy Endocrine : No Polyuria, No Polydipsia All other systems reviewed and are negative PMFSH Past Medical History Attestation statement: The following information was validated with the patient. Medical History Above knee amputation of left lower extremity Amputation above knee End stage chronic kidney disease Essential hypertension Ischemic cardiomyopathy Myocardial infarction involving left anterior descending (LAD) coronary artery Social History Social History Household Members: Other Household Members Other:: [facility] Housing: Assisted Housing Other:: SNF Do you presently have visiting nurse or other home services: Yes (SNF) Unable to assess alcohol history related to: Unable to respond Alcohol intake: former Patient Tobacco Use Status: Tobacco use Unknown Advance Directives: Yes Advance Directives on File: Yes Advance Directives Date on File: 05/26/22 service: No Physical Exam Vital Signs: Vital Signs: Last Vital Signs Temp 98.0 F 09/06/22 01:28 Pulse 69 09/06/22 01:28 Resp 20 09/06/22 01:28 BP 165/65 H 09/06/22 01:28 Pulse Ox 98 09/06/22 01:28 O2 Del Method 09/06/22 01:28 BMI result Body Mass Index 20.9 Appearance: Alert. Oriented X3. No acute distress. Eyes: Pupils equal, round and reactive to light. ENT: Pharynx normal. Neck: Normal inspection. Neck supple. CVS: Normal heart rate and rhythm. Pulses normal. Respiratory: No respiratory distress. Breath sounds slightly diminished both bases Abdomen: Soft and non-tender. Skin: Skin warm and dry. pale skin color. poor skin turgor. Extremities:bilateral AKA, RUE AVF + thrill Neuro: Oriented X 3. No motor deficit. No sensory deficit. Course Course Course Narrative: baseline hemoglobin around 8 will need admission for transfusions given his antibodies and hx of TACO it will take a long time for his transfusions to complete Medical Decision Making Medical Decision Making MDM Narrative: 67 yo male with hx of chronic anemia - pancytopenia, CKD on HD MWF did receive typical session on Thursday, NSTEMI, GIB, frequent transfusions with hx of TACO, HCV cirrhosis, DM, HLD, HTN, PAD, PVD, bilateral AKA, seizures, RLS comes from SNF here with low H/H and feeling weak - no GIB symptoms reported has hx of chronic anemic due to his chronic diseases. Will repeat labs check EKG though no CP or SOB and transfuse. Will attempt transfusion in ED and DC back to SNF if possible given chronicity of his complaint. Differential Diagnoses: Differential diagnosis (chronic anemia due to CKD) Consideration of admission/observation: Consideration of Admission/Observation (will admit given need for transfusions and his hx of TACO - has antibodies the blood bank has let me know his blood usually takes about 4 hours to get) Discussion of management with other physician/healthcare provider/other source (e.g., hospitalist, agricultural consultant, behavioral health): Discussion w/other physician/healthcare provider Management of the patient was discussed with: Hospitalist My interpretation is plan to admit and transfuse made aware of TACO history Lab Attestation: I reviewed the patient's lab results. Independent interpretation of EKG, rhythm strip, radiology study: Independent interp EKG,rhythm strip, radiology study I performed an independent interpretation of the: EKG My interpretation is Rate:70 Rhythm: NSR [place]: normal Normal P waves. Normal JANET. Normal QRS complex. ST T wave : no [place], inverted t waves I and aVL, V4-V6, II, III, aVF qTC: normal prior studies: no change from priors The study has been interpreted contemporaneously by me. . Non-ED record review: Review of External (Non-ED) Record External record reviewed:: Outpatient record and Prior outpatient labs Discharge Plan Discharge Clinical Impression: Anemia Qualifiers: Anemia type: due to chronic kidney disease Chronic kidney disease stage: on chronic dialysis Qualified Code(s): N18.6 - End stage renal disease Patient Disposition: Admitted As Inpatient
[2022-09-06 01:52] LABS: Glucose, Whole Blood 102 mg/dL (60-115)
[2022-09-06 02:04] LABS: Basophils Percent Auto 0.3 % (0-2); Imm Gran Abs Auto 0.01 X10*3/uL (0.00-0.03); Imm Gran Pct Auto 0.3 % (0.0-0.4); MANUAL DIFF FLAG SCAN; Mean Corpuscular HGB Conc 32.8 g/dl (31.0-36.0); Monocytes Absolute Auto 0.3 X10*3/uL (0.1-1.2); Red Cell Distribution Width 17.3 % (11.0-16.0); SCAN SMEAR FLAG 1
[2022-09-06 02:05] LABS: Eosinophils Absolute Auto 0.1 X10*3/uL (0.0-0.4); Eosinophils Percent Auto 3.2 % (0-4); Lymphocytes Absolute Auto 0.5 X10*3/uL (1.2-4.9); Mean Corpuscular Hemoglobin 31.3 pg (27.0-33.0); Mean Corpuscular Volume 95.5 fL (80.0-98.0); Mean Platelet Volume 13.6 fL (9.4-12.4); Monocytes Percent Auto 8.9 % (2-11); Neutrophils Absolute Auto 2.2 x10*3/uL (2.0-8.3); Neutrophils Percent Auto 71.3 % (45-73); Red Blood Count 2.01 X10*6/uL (4.60-5.80); White Blood Count 3.1 X10*3/uL (4.8-10.8)
[2022-09-06 02:17] LABS: PLT ABN DIST 1; Platelet Count 58 X10*3/uL (160-400)
[2022-09-06 02:24] LABS: COVID-19 Test Negative (Negative); IDNOW Serial# BCCEAD1C
[2022-09-06 02:24] LABS: Alanine Aminotransferase 12 U/L (0-40); Albumin Level 3.8 g/dL (3.5-5.0); Alkaline Phosphatase 150 U/L (39-117); Anion Gap 13 (12-20); Aspartate Amino Transferase 22 U/L (5-37); Bilirubin Direct 0.3 mg/dL (0.0-0.5); Bilirubin Total 0.9 mg/dL (0.0-1.0); Blood Urea Nitrogen 15 mg/dL (9-16); Calcium 8.6 mg/dL (8.4-10.2); Carbon Dioxide 32 mmol/L (22-29); Chloride 102 mmol/L (96-108); Creatinine Clr Calc Pharmacy 15.2; Estimated Glomerular Filt Rate 15; Glucose Random 99 mg/dL (60-115); Magnesium 1.8 mg/dL (1.6-2.6); Potassium 3.7 mmol/L (3.3-5.1); Sodium 143 mmol/L (135-145)
[2022-09-06 02:26] LABS: Hematocrit 19.2 % (42.0-52.0); Hemoglobin 6.3 g/dl (14.0-18.0)
[2022-09-06 02:54] LABS: SLIDE REVIEW VERIFIED
[2022-09-06 02:55] LABS: INTERNATIONAL NORM RATIO 1.3 (0.9-1.1); Prothrombin Time 14.8 SEC (10.0-13.1)
--- NOTE | 2022-09-06 05:03 | P.HPHOSP_ITS ---
History of Present Illness Date of Service: 09/06/22 Chief Complaint: Abnormal labs This is a 67-year-old male with pertinent history of ESRD on hemodialysis, (Thursday/Thursday/Thursday), systolic heart failure, essential hypertension, coronary artery disease, hypothyroidism, PAD status was bilateral AKA who was sent from senior care for low blood count. Patient states he he has been feeling weak over the last few days. No focal weakness. Admits easy fatigability. No hematuria, hematemesis, melena or hematochezia. Patient denies chest discomfort, palpitations, shortness of breath. He denies fever, chills, abdominal pain, changes in urinary or bowel habits. States he has received blood transfusion the past. In the emergency department, his hemoglobin noted to be 6.3 Review of Systems Constitutional: Constitutional: Reports lethargy, Reports malaise and Reports weakness Cardiovascular: Cardiovascular: Reports no additional cardiovascular complaints Respiratory: Respiratory: Reports no additional respiratory complaints Gastrointestinal: Gastrointestinal: Reports no additional gastrointestinal complaints Genitourinary: Genitourinary: Reports no additional male genitourinary complaints Neurologic: Reports weakness [facility] Medical History Above knee amputation of left lower extremity Amputation above knee End stage chronic kidney disease Essential hypertension Ischemic cardiomyopathy Myocardial infarction involving left anterior descending (LAD) coronary artery Social History Household Members: Other Household Members Other:: [facility] Housing: [facility] Housing Other:: SNF Do you presently have visiting nurse or other home services: Yes (SNF) Unable to assess alcohol history related to: Unable to respond Alcohol intake: former Patient Tobacco Use Status: Tobacco use Unknown Advance Directives: Yes Advance Directives on File: Yes Advance Directives Date on File: 05/26/22 service: No Meds Allergies Allergy/AdvReac Type Severity Reaction Status Date / Time bee pollen [bee stings] Allergy Angioedema Verified 09/06/22 01:36 lisinopril Allergy Cough Verified 09/06/22 01:35 Home Medications Medication Instructions Recorded Confirmed Last Taken Type acetaminophen 325 mg tablet 650 mg PO Q6H PRN Pain (Scale 05/23/22 08/23/22 Unknown History Score 4-6) acetaminophen 650 mg rectal 650 mg VT Q6H PRN Pain (Scale 05/23/22 08/23/22 Unknown History suppository Score 4-6) atorvastatin 80 mg tablet 80 mg PO BEDTIME 05/23/22 08/23/22 Unknown History bisacodyl 10 mg rectal suppository 10 mg VT DAILY PRN IF MOM 05/23/22 08/23/22 Unknown History INEFFECTIVE FOR BM brimonidine 0.2 % eye drops 1 drp ophthalmic (eye) BID 05/23/22 08/23/22 Unknown History carvedilol 25 mg tablet 25 mg PO BID 05/23/22 08/23/22 Unknown History clonidine HCl 0.2 mg tablet 0.2 mg PO SuTuTh@0900 05/23/22 08/23/22 Unknown History docusate sodium 100 mg capsule 100 mg PO BID 05/23/22 08/23/22 Unknown History gabapentin 100 mg capsule 100 mg PO DAILY 05/23/22 08/23/22 Unknown History isosorbide mononitrate 30 mg 1 tab PO DAILY 05/23/22 08/23/22 Unknown History tablet,extended release 24 hr pantoprazole 40 mg tablet,delayed 40 mg PO BID 05/23/22 08/23/22 Unknown History release sevelamer carbonate 800 mg tablet 800 mg PO TIDWM 05/23/22 08/23/22 Unknown History vitamin B complex 1 tab PO DAILY 05/23/22 08/23/22 Unknown History cholecalciferol (vitamin D3) 1,250 1,250 mcg PO QMONTH 08/23/22 08/23/22 Unknown History mcg (50,000 unit) capsule epoetin shayla 20,000 unit/mL 20,000 unit subcut MOWEFR 08/23/22 08/23/22 Unknown History injection solution (Epogen) levothyroxine 200 mcg tablet 200 mcg PO DAILY@0600 08/23/22 08/23/22 Unknown History nifedipine 60 mg tablet,extended 60 mg PO DAILY 08/23/22 08/23/22 Unknown History release 24 hr Physical Exam Vital Signs and Narrative: Vital Signs: Last Vital Signs Temp 98.0 F 09/06/22 01:28 Pulse 69 09/06/22 01:28 Resp 20 09/06/22 01:28 BP 165/65 H 09/06/22 01:28 Pulse Ox 98 09/06/22 01:28 O2 Del Method 09/06/22 01:28 BMI result Body Mass Index 20.9 Middle-aged male lying in bed in no distress Pallor present Neck supple, no JVD Regular rate and rhythm, S1-S2 heard Regular breath sounds bilaterally, no wheezing or crackles appreciated Abdomen soft nontender, no guarding, no rigidity Patient is awake, alert and oriented to self, place, time and person ; no focal motor deficit Extremity: Bilateral AKA Psych: Normal mood No pedal edema Results Labs CBC and Chem 7: 09/06/22 01:57 09/06/22 01:57 Labs: Laboratory Results - last 24 hr 09/06/22 09/06/22 09/06/22 01:48 01:56 01:57 MCV 95.5 MCH 31.3 MCHC 32.8 RDW 17.3 H Plt Count 58 L MPV 13.6 H Immature Gran % (Auto) 0.3 Neut % (Auto) 71.3 Lymph % (Auto) 16.0 L [place] % (Auto) 8.9 Eos % (Auto) 3.2 Baso % (Auto) 0.3 Lymph # (Auto) 0.5 L [place] # (Auto) 0.3 Eos # (Auto) 0.1 Baso # (Auto) 0.0 Abs Immat Gran (auto) 0.01 Absolute Neuts (auto) 2.2 Absolute Nucleated RBC 0.000 Nucleated RBC % (auto) 0.0 Smear Tech's Comments VERIFIED PT INR Anion Gap Estim Creat Clear Calc Estimated GFR POC Glucose 102 Random Glucose Calcium Magnesium Total Bilirubin Direct Bilirubin AST ALT Alkaline Phosphatase Total Protein Albumin COVID-19 (ELENA) COVID-19 Clin Com Blood Type O Positive Antibody Screen POSITIVE Antibody Identification Anti-e Crossmatch (AHG) See Detail 09/06/22 09/06/22 09/06/22 01:57 02:00 02:25 MCV MCH MCHC RDW Plt Count MPV Immature Gran % (Auto) Neut % (Auto) Lymph % (Auto) [place] % (Auto) Eos % (Auto) Baso % (Auto) Lymph # (Auto) [place] # (Auto) Eos # (Auto) Baso # (Auto) Abs Immat Gran (auto) Absolute Neuts (auto) Absolute Nucleated RBC Nucleated RBC % (auto) Smear Tech's Comments PT 14.8 H INR 1.3 H Anion Gap 13 Estim Creat Clear Calc 15.2 Estimated GFR 15 POC Glucose Random Glucose 99 Calcium 8.6 Magnesium 1.8 Total Bilirubin 0.9 Direct Bilirubin 0.3 AST 22 ALT 12 Alkaline Phosphatase 150 H Total Protein 7.0 Albumin 3.8 COVID-19 (ELENA) Negative COVID-19 Clin Com See Note Blood Type Antibody Screen Antibody Identification Crossmatch (AHG) Imaging Radiologist's Impressions: Impressions Chest X-Ray 09/06/22 03:18 IMPRESSION: *Small right pleural effusion similar in size to findings present 08/23/2022. *Mild pulmonary interstitial edema. Assessment and Plan (1) Anemia: Qualifiers: Anemia type: due to chronic kidney disease Chronic kidney disease stage: on chronic dialysis Qualified Code(s): N18.6 - End stage renal disease; D63.1 - Anemia in chronic kidney disease; Z99.2 - Dependence on renal dialysis Status: Acute (2) CKD (chronic kidney disease) requiring chronic dialysis: Status: Acute (3) Ischemic cardiomyopathy: Status: Acute Plan This is a 67-year-old male with pertinent history of ESRD on hemodialysis, (Thursday/Thursday/Thursday), systolic heart failure, essential hypertension, coronary artery disease, hypothyroidism, PAD status post bilateral AKA who was sent from senior care for low blood count. #. Symptomatic acute on chronic anemia: Likely due to chronic kidney disease. Does have a history of TACO, transfusing 2 unit PRBC slowly. ?history of GI bleed. Consulting GI to rule out GI bleed as an etiology. Patient on Epogen #. ESRD on hemodialysis, Thursday/Thursday/Thursday: Last hemodialysis session was 09/05. Continue p.o. medications for secondary hyperparathyroidism due to ki dney disease. Consult nephrology #. Chronic systolic heart failure: Compensated on admission. Continue beta- debbi #. Hypothyroidism on Synthroid #. Coronary artery disease/peripheral artery disease: Continue antiplatelet agent and high-intensity statin #. Gastroesophageal reflux disease: On PPI #. Essential hypertension: Continue p.o. medications Med rec pending Low-sodium diet DNR Time Spent With Patient Time: Total time managing care of this patient today ____ minutes. Quality Stroke Does the patient have a stroke diagnosis?: No VTE Prior VTE?: No VTE Risk Level:: Medical - low VTE Device Contraindication: Treatment Not Indicated VTE Drug Contraindication: Treatment Not Indicated
--- NOTE | 2022-09-06 06:22 | PC.NURSE ---
Patient resting quietly while watching tv. Patient denies any pain at this time. No apparent distress.
--- NOTE | 2022-09-06 06:38 | PC.NURSE ---
Informed Dr Rachel Gonzalez via [place] Text that patient c/o dizziness and has been very sluggish. Currently waiting on blood coming in from [facility]. Blood not to arrive until around 9am. Patient denies pain. BP 150/48. Will continue to monitor. Per hospitalist cannot give fluids due to patient's ESRD and continue to monitor.
--- NOTE | 2022-09-06 08:02 | PHA.MEDREC ---
Pharmacy Consult ? Medication Reconciliation Pharmacy has completed the medication reconciliation.
--- NOTE | 2022-09-06 09:32 | PM.EVENT ---
Event Note Date of Service: 09/06/22 Event Note: This is a 67-year-old male with pertinent history of ESRD on hemodialysis, (Thursday/Thursday/Thursday), systolic heart failure, essential hypertension, coronary artery disease, hypothyroidism, PAD status post bilateral AKA who was sent from snf for low blood count. Symptomatic acute on chronic anemia, non blood loss 10 secondary to chronic kidney disease Total 3 units PRBCs ordered, check CBC post transfusion GI consultation for question of GI bleed Continue Epogen Pancytopenia Secondary to chronic kidney disease Platelets 58 End-stage renal disease on hemodialysis Thursday, Thursday, Thursday, last dialysis 09/05/2022 Continue sevelamer carbonate, vitamin D3 Nephrology consultation Chronic systolic heart failure Compensated Continue beta-debbi Hypothyroidism Continue Synthroid Coronary artery disease/peripheral arterial disease Continue aspirin and statin GERD Continue PPI Hypertension Stable blood pressure Continue clonidine, isosorbide, nifedipine DVT prophylaxis with pneumatic compression boots due to severe anemia Attending Dr. Wang DNR Time Spent With Patient Time: Total time managing care of this patient today ____ minutes.
[2022-09-06 10:47] LABS: Hemoglobin 6.3 g/dl (14.0-18.0)
[2022-09-06 10:48] LABS: Hematocrit 19.6 % (42.0-52.0)
[2022-09-06] MEDS: Sevelamer Carbonate Tablet 800 MG TABLET PO (14:37)
--- NOTE | 2022-09-06 14:41 | PC.NURSE ---
pt ls- crackles bilat bases. htn noted. reaching out to hospitalist. pt reports sob and o2 is on baseline of 3l 95%
[2022-09-06] MEDS: Furosemide 20 MG/2 ML VIAL IVPUSH ×2 (14:50→16:30)
--- NOTE | 2022-09-06 14:51 | PC.NURSE ---
pt appears to have labored breathing. lasix given. will continue to monitor
--- NOTE | 2022-09-06 15:24 | PC.NURSE ---
pt reports some relief from lasix. pt asking for oxycodone for bilat stump pain.
[2022-09-06] MEDS: Omeprazole 20 MG CAPSULE.DR PO (15:42)
[2022-09-06] MEDS: Labetalol HCL 100 MG/20 ML VIAL 10 MG IVPUSH (15:42)
[2022-09-06] MEDS: oxyCODONE HCl Immed Release 5 MG TABLET PO ×2 (15:42→22:14)
--- NOTE | 2022-09-06 15:47 | PC.NURSE ---
pt placed on 4l nc for comfort- remains above 94% medicated for htn and pain. will continue to monitor. lab aware to come draw reaction protocol.
--- NOTE | 2022-09-06 15:51 | MHC.CM.PN ---
PT IS A LTC RESIDENT OF [facility] PT IS INDEPENDENT WITH ADLS AT BASELINE PT HAS NO HCP OR GUARDIAN HOWEVER IS MANDATED TO STAY AT SNF VIA [facility] PT WILL REQUIRE BLS TRANSPORT
--- NOTE | 2022-09-06 16:01 | PC.NURSE ---
pt refused blood draw for transfusion reaction protocol
[2022-09-06] MEDS: hydrALAZINE HCl 20 MG/ML VIAL 5 MG IVPUSH ×2 (16:15→22:52)
[2022-09-06] MEDS: Nitroglycerin 2 % Oint 1 GM Packet 2 INCH TRANSDERMA (16:29)
[2022-09-06] MEDS: Nitroglycerin/D5W 100 MG/250 ML INFUS..BTL 60 MG IVCONT ×2 (16:31→19:48)
--- NOTE | 2022-09-06 16:32 | PC.NURSE ---
1 sl nitro given per center aisle cashier verbal order
[2022-09-06] MEDS: HYDROmorphone HCl 2 MG/ML VIAL IVPUSH (16:33)
--- NOTE | 2022-09-06 16:41 | PC.NURSE ---
pt on bipap, medicated per md order. no improvement. plan for intubation at this time
--- NOTE | 2022-09-06 16:42 | PC.NURSE ---
nitro drip to 800mcg per md stemp
--- NOTE | 2022-09-06 16:53 | PC.NURSE ---
2.5mg nicardipine IVP by STEMP vitals 93hr 100% bipap 35RR 175/85
--- NOTE | 2022-09-06 16:59 | P.EN_ITS ---
Event Note Date of Service: 09/06/22 Event Note: Patient developed hypertensive emergency likely from volume overload after blood transfusion. Systolic blood pressure over 200. Discussed with mobile plant operators, Dr. Mitchell. Patient started on BiPAP (12/07) as he became hypoxic with saturations in the 80s and work of breathing increased. Patient was administered 1 sublingual nitroglycerin, 2 in of nitroglycerin paste placed to the chest and nitroglycerin drip started at 400 mcg. Gradually patient's blood pressure decreased with systolic blood pressure of 140, patient more comfortable after IV Dilaudid. Plan to transfer patient to ICU for emergent dialysis secondary to fluid overload. Time Spent With Patient Time: Total time managing care of this patient today ____ minutes.
[2022-09-06] MEDS: niCARdipine HCL 25 MG in 0.9 % Sodium Chloride 250 ML 52 MG IVCONT (17:02)
--- NOTE | 2022-09-06 17:52 | W.PM.CCCN ---
History of Present Illness Data of Consult Service Date: 09/06/22 Requesting physician: Emani Brown Primary Care Provider: Ashley Byrne MD HPI Emani Brown asked me to see Mr. Small in the ED bec of respiratory distress. Very briefly, the patient is a 67 yo M w PMHx of ESRF patient who also has hypertension, coronary artery disease, systolic heart failure, and peripheral vascular disease, status post bilateral AKA.? He was sent to the ED early this morning because of a low hemoglobin.? I am told that the patient has DNR status, but okay to intubate.? I am also told that last time the patient was transfused, he went into pulmonary edema. According to the [facility] vital signs record, when the patient arrived to the ED early this morning, his respiratory rate was 20, and sat was 98-99% on room air.? BP was 165/65.? He was in no distress. ?Hemoglobin was 6.3, compared with 8.42 weeks ago.? BUN/creatinine were 15/3.9, bicarb was 32.? The patient was reportedly given a blood transfusion electively.? [facility] [place] through the blood transfusion, the patient began to have increased work of breathing, dropped his saturation, and his blood pressure charity to over 200 systolic.? I was called to see him and went immed to the ED. On my arrival, the patient was on BiPAP in gross resp distress, diaphoretic, and visibly tiring.? On 12/07/40%, RR was about 40, Vt about 420cc, SpO2 98%.? BP was 209/90s.? We put 2? of paste on him and started him on a NTG drip at 400ug.? I pushed two 2000ug bolus doses, and BP didn?t budge.? I pushed two 4000ug bolus and BP dropped to 190s.? We upped the drip to 800ug. Discussed with Dr. Pleitez, who made arrangements for urgent HD.? I pushed 2.5 mg nicardipine.? The BP came down to 150s and immediately the patient had symptomatic relief.? We added the nicardipine drip at 5mg and the BP dropped to 140s, then 130s.? By then, the patient had near complete symptomatic relief. ?RR dropped into the high 20s, Vt charity to mid-500s, and SpO2 charity to 100%. IMPRESSION: 1. Underlying end-stage renal failure. 2. Underlying cardiomyopathy. 3. Hypertensive crisis. 4. Acute systolic heart failure. 5. Acute pulmonary edema. 6. Acute respiratory failure. 7. Anemia PLAN: - Continue nitroglycerin and nicardipine drips. - Transfer to ICU for emergent hemodialysis. I anticipate that all the patient's acute problems will resolve within minutes of starting hemodialysis.? At the end of hemodialysis, he can be transferred back to [facility]. (I would suggest that next time the patient is given a blood transfusion, it should be done during HD.) Critical care time:? 80+ min (including over 60 min at the bedside, personally titrating in NTG and nicardipine). FORMERLY [facility], [facility] Past Medical History Medical History Above knee amputation of left lower extremity Amputation above knee End stage chronic kidney disease Essential hypertension Ischemic cardiomyopathy Myocardial infarction involving left anterior descending (LAD) coronary artery Social History Social History Household Members: Other Household Members Other:: [facility] Housing: [facility] Housing Other:: SNF Do you presently have visiting nurse or other home services: Yes (SNF) Unable to assess alcohol history related to: Unable to respond Alcohol intake: former Patient Tobacco Use Status: Tobacco use Unknown Advance Directives: Yes Advance Directives on File: Yes Advance Directives Date on File: 05/26/22 service: No Meds Allergies Allergy/AdvReac Type Severity Reaction Status Date / Time bee pollen [bee stings] Allergy Angioedema Verified 09/06/22 01:36 lisinopril Allergy Cough Verified 09/06/22 01:35 Active Medications: Current Medications Acetaminophen (Acetaminophen 325 Mg Tablet) 650 mg PO Q6H PRN PRN Reason: Pain, Mild (Pain Scale 1-3) Atorvastatin Calcium (Atorvastatin Calcium 80 Mg Tablet) 80 mg PO BEDTIME [facility] Bisacodyl (Bisacodyl 10 Mg Supp.Rect) 10 mg KS DAILY PRN PRN Reason: IF MOM INEFFECTIVE FOR BM Brimonidine Tartrate (Brimonidine Tartrate 0.2% Oph 5 Ml Bottle) 1 drop EYE-BOTH BID [facility] Carvedilol (Carvedilol 25 Mg Tablet) 25 mg PO BID [facility]; Protocol Clonidine HCl (Clonidine Hcl 0.2 Mg Tablet) 0.2 mg PO SuTuTh@0900 [facility]; Protocol Docusate Sodium (Docusate Sodium 100 Mg Capsule) 100 mg PO BID [facility] Epoetin Shayla (Epoetin Shayla 20,000 Unit/Ml Vial) 20,000 unit SUBCUT MoWeFr@1800 [facility] Furosemide (Furosemide 20 Mg/2 Ml Vial) 20 mg IVPUSH ONCE PRN; Protocol PRN Reason: TACO Last Admin: 09/06/22 14:50 Dose: 20 mg Gabapentin (Gabapentin 100 Mg Capsule) 100 mg PO DAILY [facility] Hydralazine HCl (Hydralazine Hcl 20 Mg/Ml Vial) 5 mg IVPUSH Q4H PRN; Protocol PRN Reason: SBP>180 Last Admin: 09/06/22 16:15 Dose: 5 mg Nitroglycerin/Dextrose (Nitroglycerin/D5w) 100 mg in 250 mls @ 0 mls/hr IVCONT .Q0M [facility]; Protocol Last Titration: 09/06/22 17:09 Dose: 400 mcg/min, 60 mls/hr Nicardipine HCl 25 mg/ Sodium (Chloride) 260 mls @ 0 mls/hr IVCONT .Q0M [facility]; Protocol Last Titration: 09/06/22 17:12 Dose: 7.5 mg/hr, 78 mls/hr Isosorbide Mononitrate (Isosorbide Mononitrate 30 Mg Tab.Er.24h) 30 mg PO DAILY [facility]; Protocol Levothyroxine Sodium (Levothyroxine Sodium 200 Mcg Tablet) 200 mcg PO DAILY@0600 [facility] Melatonin (Melatonin 3 Mg Tablet) 6 mg PO BEDTIME PRN PRN Reason: Insomnia Multivitamins/Vitamin C (Multivitamin Tablet) 1 tab PO DAILY [facility] Nifedipine (Nifedipine Er 60 Mg Tab.Er.24) 60 mg PO DAILY [facility]; Protocol Nitroglycerin (Nitroglycerin 0.4 Mg Tab.Subl) 0.4 mg SUBLINGUAL Q5MX3 PRN PRN Reason: htn Non-Formulary Medication (Cholecalciferol (Vitamin D3)) 1,250 mcg PO Q28H [facility] Omeprazole (Omeprazole 20 Mg Capsule.Dr) 20 mg PO BID@0630,1630 [facility] Last Admin: 09/06/22 15:42 Dose: 20 mg Ondansetron HCl (Ondansetron Hcl 4 Mg/2 Ml Vial) 4 mg IVPUSH Q8H PRN PRN Reason: Nausea and Vomiting Oxycodone HCl (Oxycodone Hcl Immed Release 5 Mg Tablet) 5 mg PO Q4H PRN PRN Reason: Pain, Mild (Pain Scale 1-3) Last Admin: 09/06/22 15:42 Dose: 5 mg Pharmacy Consult (Consult Rx Perform Med Rec) 1 each MISCELLANE ONCE PRN PRN Reason: Consult order Sevelamer Carbonate (Sevelamer Carbonate Tablet 800 Mg Tablet) 800 mg PO TIDWM [facility] Last Admin: 09/06/22 16:43 Dose: Not Given Sodium Chloride (0.9 % Sodium Chloride Flush 3 Ml Syringe) 3 ml IVFLUSH [facility] Last Admin: 09/06/22 14:37 Dose: Not Given Home Medications Medication Instructions Recorded Confirmed Last Taken Type acetaminophen 325 mg tablet 650 mg PO Q6H PRN Pain (Scale 05/23/22 09/06/22 09/05/22 History Score 4-6) atorvastatin 80 mg tablet 80 mg PO BEDTIME 05/23/22 09/06/22 09/05/22 History bisacodyl 10 mg rectal suppository 10 mg KS DAILY PRN IF MOM 05/23/22 09/06/22 09/05/22 History INEFFECTIVE FOR BM brimonidine 0.2 % eye drops 1 drp ophthalmic (eye) BID 05/23/22 09/06/22 09/05/22 History carvedilol 25 mg tablet 25 mg PO BID 05/23/22 09/06/22 09/05/22 History clonidine HCl 0.2 mg tablet 0.2 mg PO SuTuTh@0900 05/23/22 09/06/22 09/05/22 History docusate sodium 100 mg capsule 100 mg PO BID 05/23/22 09/06/22 09/05/22 History gabapentin 100 mg capsule 100 mg PO DAILY 05/23/22 09/06/22 09/05/22 History isosorbide mononitrate 30 mg 1 tab PO DAILY 05/23/22 09/06/22 09/05/22 History tablet,extended release 24 hr pantoprazole 40 mg tablet,delayed 40 mg PO BID 05/23/22 09/06/22 09/05/22 History release sevelamer carbonate 800 mg tablet 800 mg PO TIDWM 05/23/22 09/06/22 09/05/22 History vitamin B complex 1 tab PO DAILY 05/23/22 09/06/22 09/05/22 History cholecalciferol (vitamin D3) 1,250 1,250 mcg PO Q28H 08/23/22 09/06/22 08/09/22 History mcg (50,000 unit) capsule epoetin shayla 20,000 unit/mL 20,000 unit subcut MOWEFR 08/23/22 09/06/22 09/05/22 History injection solution (Epogen) levothyroxine 200 mcg tablet 200 mcg PO DAILY@0600 08/23/22 09/06/22 09/05/22 History nifedipine 60 mg tablet,extended 60 mg PO DAILY 08/23/22 09/06/22 09/05/22 History release 24 hr Physical Exam Vital Signs: Vital Signs: Last Vital Signs Temp 98.3 F 09/06/22 15:37 Pulse 69 09/06/22 17:40 Resp 26 H 09/06/22 17:40 BP 122/53 L 09/06/22 17:40 Pulse Ox 99 09/06/22 17:40 O2 Del Method 09/06/22 17:40 O2 Flow Rate 2 09/06/22 10:03 BMI result Body Mass Index 20.9 Results Labs CBC & Chem 7: 09/06/22 09:58 09/06/22 01:57 Labs: Short CBC 09/06/22 09/06/22 Range/Units 01:57 09:58 WBC 3.1 L (4.8-10.8) X10*3/uL Hgb 6.3 L* D 6.3 L* (14.0-18.0) g/dl Hct 19.2 L* D 19.6 L* (42.0-52.0) % Plt Count 58 L (160-400) X10*3/uL BMP 09/06/22 01:57 Sodium 143 Potassium 3.7 Chloride 102 Carbon Dioxide 32 H BUN 15 Creatinine 3.91 H Calcium 8.6 Liver Function 09/06/22 Range/Units 01:57 Total Bilirubin 0.9 (0.0-1.0) mg/dL Direct Bilirubin 0.3 (0.0-0.5) mg/dL AST 22 (5-37) U/L ALT 12 (0-40) U/L Alkaline Phosphatase 150 H (39-117) U/L Albumin 3.8 (3.5-5.0) g/dL Assessment and Plan Time Spent With Patient Time: Total time managing care of this patient today ____ minutes. Critical Care Time Critical Care Time (minutes): 90
--- NOTE | 2022-09-06 18:22 | PC.NURSE ---
pt awake and fully function prior to htn emergency, pt on phone and talking. able to follow commands. rt called to readjust bipap
--- NOTE | 2022-09-06 19:43 | PM.EVENT ---
Event Note Date of Service: 09/06/22 Event Note: GI-Consult received and chart reviewed-Will plan to see patient tomorrow, 09/07/2022. It appears that his presentation with anemia is not new for him and the notes describe previous GI workups elsewhere. It appears that he had some type of adverse reaction to his transfusion earlier today and this prompted an ICU evaluation and admission. Given his history he most likely will not need endoscopic evaluation during this admission. Thanks Time Spent With Patient Time: Total time managing care of this patient today ____ minutes.
[2022-09-06] MEDS: ondansetron HCL 4 MG/2 ML VIAL IVPUSH (19:56)
[2022-09-06] MEDS: carvediloL 25 MG TABLET PO (22:14)
[2022-09-06] MEDS: Melatonin 3 MG TABLET 6 MG PO (22:14)
[2022-09-06] MEDS: Atorvastatin Calcium 80 MG TABLET PO (22:14)
[2022-09-06] MEDS: Acetaminophen 325 MG TABLET 650 MG PO (22:18)
--- NOTE | 2022-09-06 22:32 | PC.NURSE ---
PT TO ICU AT 1930 FOR EMERGENT DIALYSIS. PT A&O AND FOLLOWING COMMANDS ON ARRIVAL. NTG DRIP AT 400 MCG/MIN AND CARDENE DRIP AT 7.5 MG/HR. BP 137/64. MONITOR SHOWED NSR, RATE 60'S, NO ECTOPY NOTED. DIALYSIS NURSE HERE AND STARTED DIALYSIS RIGHT AWAY VIA FISTULA RIGHT UPPER ARM. PT ON BIPAP TIL ABOUT 1999 WHEN HE DEVELOPED NAUSEA AND THEN O2 VIA NC APPLIED AT 3L. PT RECEIVED ZOFRAN BUT DID VOMIT A SMALL AMOUNT OF BILE. HE DID WELL ON NASAL CANULLA WITH O2 SATS 97-98%. BOTH NTG AND CARDENE DRIPS SHUT OFF DURING DIALYSIS DUE TO LOW BP OF 88/47. PRESENTLY PT IS SITTING UP IN BED WATCHING TV AND EATING JELLO. C/O SIDE CRAMPING AND OXYCODONE WAS GIVEN TO HIM. PLAN IS TO TRANSFER PT TO [facility] WHEN DIALYSIS COMPLETE. PT AWARE OF PLAN OF CARE.
--- NOTE | 2022-09-06 23:34 | P.PNCC_ITS ---
Subjective Subjective Date of Service: 09/06/22 Critical Care Time (minutes): 30 Comment: Patient is doing well, no complaints. Tolerated dialysis full session without any problems. His blood pressure is well controlled although he does get a little anxious every now and then. He received his oral Coreg and IV hydralazine after dialysis. Currently denies any chest pain, shortness of breath, nausea vomiting, numbness or tingling the or lower extremities. 137/57, 725 18, 94% on 3 L nasal cannula. Alert oriented x3 no acute distress. Regular rate and rhythm no murmurs rubs gallops Diminished lung sounds bilaterally without wheezes, rales or rhonchi. Minor julia crackles at the bases. Abdomen protuberant, positive bowel sounds, soft, nontender. Moving all 4 extremities upon request under major joints, no calf tenderness, No edema, no asymmetry. Neural as above, otherwise not focal deficits. Pre dialysis laboratories reviewed. Revised assessment plan Flash pulmonary edema due to hypertensive crisis status post dialysis Patient is hemodynamically stable now, asymptomatic, blood pressure well co ntrolled. Patient does no longer require ICU, will be transferred to [facility]. The case had been sign-out by Dr. Mitchell to the hospitalist earlier on with the already mentioned plan of finishing dialysis and transfer him out of the unit. Transfer orders and medications were reviewed and completed. Case was discussed in detail with Dr. Mitchell. He is aware of all the above as well as the plan of care for this patient. Total critical care time for this patient 30 minutes Physical Exam Vital Signs: Vital Signs: Last Vital Signs Temp 98.3 F 09/06/22 15:37 Pulse 72 09/06/22 22:57 Resp 13 09/06/22 22:57 BP 165/71 H 09/06/22 22:57 Pulse Ox 94 09/06/22 22:57 O2 Del Method 09/06/22 22:57 O2 Flow Rate 3 09/06/22 22:57 FiO2 30 09/06/22 19:45 BMI result Body Mass Index 20.9 Objective Data Labs CBC & Chem 7: 09/07/22 06:27 09/07/22 06:27 Labs: Laboratory Results - last 24 hr 09/06/22 09/06/22 09/06/22 01:48 01:56 01:57 WBC 3.1 L RBC 2.01 L D Hgb 6.3 L* D Hct 19.2 L* D MCV 95.5 MCH 31.3 MCHC 32.8 RDW 17.3 H Plt Count 58 L MPV 13.6 H Immature Gran % (Auto) 0.3 Neut % (Auto) 71.3 Lymph % (Auto) 16.0 L Stewart % (Auto) 8.9 Eos % (Auto) 3.2 Baso % (Auto) 0.3 Lymph # (Auto) 0.5 L Stewart # (Auto) 0.3 Eos # (Auto) 0.1 Baso # (Auto) 0.0 Abs Immat Gran (auto) 0.01 Absolute Neuts (auto) 2.2 Absolute Nucleated RBC 0.000 Nucleated RBC % (auto) 0.0 Smear Tech's Comments VERIFIED PT INR Sodium Potassium Chloride Carbon Dioxide Anion Gap BUN Creatinine Estim Creat Clear Calc Estimated GFR POC Glucose 102 Random Glucose Calcium Magnesium Total Bilirubin Direct Bilirubin AST ALT Alkaline Phosphatase Total Protein Albumin COVID-19 (ELENA) COVID-[facility] Com Blood Type O Positive Antibody Screen POSITIVE Antibody Identification Anti-e Crossmatch ([facility]) See Detail 09/06/22 09/06/22 09/06/22 01:57 02:00 02:25 WBC RBC Hgb Hct MCV MCH MCHC RDW Plt Count MPV Immature Gran % (Auto) Neut % (Auto) Lymph % (Auto) Stewart % (Auto) Eos % (Auto) Baso % (Auto) Lymph # (Auto) Stewart # (Auto) Eos # (Auto) Baso # (Auto) Abs Immat Gran (auto) Absolute Neuts (auto) Absolute Nucleated RBC Nucleated RBC % (auto) Smear Tech's Comments PT 14.8 H INR 1.3 H Sodium 143 Potassium 3.7 Chloride 102 Carbon Dioxide 32 H Anion Gap 13 BUN 15 Creatinine 3.91 H Estim Creat Clear Calc 15.2 Estimated GFR 15 POC Glucose Random Glucose 99 Calcium 8.6 Magnesium 1.8 Total Bilirubin 0.9 Direct Bilirubin 0.3 AST 22 ALT 12 Alkaline Phosphatase 150 H Total Protein 7.0 Albumin 3.8 COVID-19 (ELENA) Negative COVID-[employer] See Note Blood Type Antibody Screen Antibody Identification Crossmatch ([facility]) 09/06/22 09:58 WBC RBC Hgb 6.3 L* Hct 19.6 L* MCV MCH MCHC RDW Plt Count MPV Immature Gran % (Auto) Neut % (Auto) Lymph % (Auto) Stewart % (Auto) Eos % (Auto) Baso % (Auto) Lymph # (Auto) Stewart # (Auto) Eos # (Auto) Baso # (Auto) Abs Immat Gran (auto) Absolute Neuts (auto) Absolute Nucleated RBC Nucleated RBC % (auto) Smear Tech's Comments PT INR Sodium Potassium Chloride Carbon Dioxide Anion Gap BUN Creatinine Estim Creat Clear Calc Estimated GFR POC Glucose Random Glucose Calcium Magnesium Total Bilirubin Direct Bilirubin AST ALT Alkaline Phosphatase Total Protein Albumin COVID-19 ([facility]NA) COVID-19 Clin Com Blood Type Antibody Screen Antibody Identification Crossmatch ([facility]) Quality Stroke Does the patient have a stroke diagnosis?: No VTE Prior VTE?: No VTE Risk Level:: Medical - low VTE Device Contraindication: Treatment Not Indicated VTE Drug Contraindication: Treatment Not Indicated
[2022-09-07] VITALS (10 sets, daily range): BP systolic 130–190; BP diastolic 52–81; PULSE 64–78; RESP 17–19; TEMP 36.2–36.6; O2SAT 96–99
[2022-09-07] MEDS: oxyCODONE HCl Immed Release 5 MG TABLET PO ×5 (02:16→21:22)
[2022-09-07] MEDS: 0.9 % Sodium Chloride Flush 3 ML SYRINGE IVFLUSH ×4 (03:49→21:20)
[2022-09-07] MEDS: Omeprazole 20 MG CAPSULE.DR PO ×2 (06:02→17:14)
[2022-09-07] MEDS: Levothyroxine Sodium 200 MCG TABLET PO (06:02)
[2022-09-07 07:03] LABS: MANUAL DIFF FLAG NO
[2022-09-07 07:25] LABS: Basophils Percent Auto 0.5 % (0-2); Eosinophils Absolute Auto 0.1 X10*3/uL (0.0-0.4); Eosinophils Percent Auto 2.5 % (0-4); Hematocrit 26.2 % (42.0-52.0); Hemoglobin 8.5 g/dl (14.0-18.0); Imm Gran Abs Auto 0.01 X10*3/uL (0.00-0.03); Imm Gran Pct Auto 0.2 % (0.0-0.4); Lymphocytes Absolute Auto 0.5 X10*3/uL (1.2-4.9); Lymphocytes Percent Auto 10.3 % (20-40); Mean Corpuscular HGB Conc 32.4 g/dl (31.0-36.0); Mean Corpuscular Hemoglobin 28.7 pg (27.0-33.0); Mean Corpuscular Volume 88.5 fL (80.0-98.0); Monocytes Absolute Auto 0.3 X10*3/uL (0.1-1.2); Monocytes Percent Auto 7.8 % (2-11); Neutrophils Absolute Auto 3.5 x10*3/uL (2.0-8.3); Neutrophils Percent Auto 78.7 % (45-73); Red Blood Count 2.96 X10*6/uL (4.60-5.80); Red Cell Distribution Width 21.3 % (11.0-16.0); White Blood Count 4.4 X10*3/uL (4.8-10.8)
[2022-09-07 07:26] LABS: Platelet Count 69 X10*3/uL (160-400)
[2022-09-07 07:36] LABS: Anion Gap 18 (12-20); Blood Urea Nitrogen 25 mg/dL (9-16); Calcium 8.9 mg/dL (8.4-10.2); Carbon Dioxide 29 mmol/L (22-29); Chloride 98 mmol/L (96-108); Glucose Random 62 mg/dL (60-115); Potassium 4.3 mmol/L (3.3-5.1); Sodium 141 mmol/L (135-145)
[2022-09-07 07:40] LABS: B Type Natriuretic Peptide 1949 pg/mL (<100)
[2022-09-07 07:41] LABS: Creatinine Clr Calc Pharmacy 12.8; Estimated Glomerular Filt Rate 12
[2022-09-07] MEDS: Gabapentin 100 MG CAPSULE PO (08:10)
[2022-09-07] MEDS: Isosorbide Mononitrate 30 MG TAB.ER.24H PO (08:10)
[2022-09-07] MEDS: carvediloL 25 MG TABLET PO ×2 (08:10→21:20)
[2022-09-07] MEDS: NIFEdipine ER 60 MG TAB.ER.24 PO (08:10)
[2022-09-07] MEDS: Docusate Sodium 100 MG CAPSULE PO ×2 (08:10→21:20)
[2022-09-07] MEDS: Sevelamer Carbonate Tablet 800 MG TABLET PO ×3 (08:10→17:13)
[2022-09-07] MEDS: Multivitamin TABLET 1 TAB PO (08:10)
[2022-09-07] MEDS: hydrALAZINE HCl 20 MG/ML VIAL 5 MG IVPUSH (08:12)
[2022-09-07] MEDS: cloNIDine HCL 0.2 MG TABLET PO (10:18)
--- NOTE | 2022-09-07 10:33 | HO.PM.IMPN ---
Subjective Subjective Date of Service: 09/07/22 Interval History: follow up for anemia hypertensive emergency tx to ICU and now back to medical floor feeling well, sitting up eating breakfast Cardiovascular Cardiovascular: Reports no additional cardiovascular complaints Gastrointestinal Gastrointestinal: Reports no additional gastrointestinal complaints Physical Exam Vital Signs: Vital Signs: Last Vital Signs Temp 97.4 F 09/07/22 07:48 Pulse 70 09/07/22 07:48 Resp 17 09/07/22 07:48 BP 168/62 H 09/07/22 09:30 Pulse Ox 96 09/07/22 07:48 O2 Del Method 09/07/22 07:48 O2 Flow Rate 3 09/07/22 07:48 FiO2 30 09/06/22 19:45 BMI result Body Mass Index 21.2 Appearing in no acute distress lung sounds are clear to auscultation heart regular rate rhythm, clear S1, S2 positive bowel sounds, abdomen is soft, nontender neuro patient is alert x3, no focal deficits Bilateral AKA Objective Data Active Medications Acetaminophen (Acetaminophen 325 Mg Tablet) 650 mg PO Q6H PRN PRN Reason: Pain, Mild (Pain Scale 1-3) Last Admin: 09/06/22 22:18 Dose: 650 mg Documented By: RICKIE Atorvastatin Calcium (Atorvastatin Calcium 80 Mg Tablet) 80 mg PO BEDTIME [facility] Last Admin: 09/06/22 22:14 Dose: 80 mg Documented By: RICKIE Bisacodyl (Bisacodyl 10 Mg Supp.Rect) 10 mg SD DAILY PRN PRN Reason: IF MOM INEFFECTIVE FOR BM Brimonidine Tartrate (Brimonidine Tartrate 0.2% Oph 5 Ml Bottle) 1 drop EYE-BOTH BID [facility] Last Admin: 09/07/22 10:17 Dose: Not Given Documented By: DENICE Non-Admin Reason: Med Not Available Carvedilol (Carvedilol 25 Mg Tablet) 25 mg PO BID [facility]; Protocol Last Admin: 09/07/22 08:10 Dose: 25 mg Documented By: DENICE Clonidine HCl (Clonidine Hcl 0.2 Mg Tablet) 0.2 mg PO SuTuTh@0900 [facility]; Protocol Last Admin: 09/07/22 10:18 Dose: 0.2 mg Documented By: DENICE Docusate Sodium (Docusate Sodium 100 Mg Capsule) 100 mg PO BID [facility] Last Admin: 09/07/22 08:10 Dose: 100 mg Documented By: DENICE Epoetin Jose (Epoetin Jose 20,000 Unit/Ml Vial) 20,000 unit SUBCUT MoWeFr@1800 [facility] Furosemide (Furosemide 20 Mg/2 Ml Vial) 20 mg IVPUSH ONCE PRN; Protocol PRN Reason: TACO Last Admin: 09/06/22 14:50 Dose: 20 mg Documented By: YOVANA Gabapentin (Gabapentin 100 Mg Capsule) 100 mg PO DAILY [facility] Last Admin: 09/07/22 08:10 Dose: 100 mg Documented By: DENICE Hydralazine HCl (Hydralazine Hcl 20 Mg/Ml Vial) 5 mg IVPUSH Q4H PRN; Protocol PRN Reason: SBP>180 Last Admin: 09/07/22 08:12 Dose: 5 mg Documented By: DENICE Isosorbide Mononitrate (Isosorbide Mononitrate 30 Mg Tab.Er.24h) 30 mg PO DAILY [facility]; Protocol Last Admin: 09/07/22 08:10 Dose: 30 mg Documented By: DENICE Levothyroxine Sodium (Levothyroxine Sodium 200 Mcg Tablet) 200 mcg PO DAILY@0600 [facility] Last Admin: 09/07/22 06:02 Dose: 200 mcg Documented By: NBA Melatonin (Melatonin 3 Mg Tablet) 6 mg PO BEDTIME PRN PRN Reason: Insomnia Last Admin: 09/06/22 22:14 Dose: 6 mg Documented By: RICKIE Multivitamins/Vitamin C (Multivitamin Tablet) 1 tab PO DAILY [facility] Last Admin: 09/07/22 08:10 Dose: 1 tab Documented By: DENICE Nifedipine (Nifedipine Er 60 Mg Tab.Er.24) 60 mg PO DAILY [facility]; Protocol Last Admin: 09/07/22 08:10 Dose: 60 mg Documented By: DENICE Nitroglycerin (Nitroglycerin 0.4 Mg Tab.Subl) 0.4 mg SUBLINGUAL Q5MX3 PRN PRN Reason: htn Non-Formulary Medication (Cholecalciferol (Vitamin D3)) 1,250 mcg PO Q28H [facility] Omeprazole (Omeprazole 20 Mg Isha.) 20 mg PO BID@0630,1630 [facility] Last Admin: 09/07/22 06:02 Dose: 20 mg Documented By: NBA Ondansetron HCl (Ondansetron Hcl 4 Mg/2 Ml Vial) 4 mg IVPUSH Q8H PRN PRN Reason: Nausea and Vomiting Last Admin: 09/06/22 19:56 Dose: 4 mg Documented By: RICKIE Oxycodone HCl (Oxycodone Hcl Immed Release 5 Mg Tablet) 5 mg PO Q4H PRN PRN Reason: Pain, Mild (Pain Scale 1-3) Last Admin: 09/07/22 10:21 Dose: 5 mg Documented By: DENICE Pharmacy Consult (Consult Rx Perform Med Rec) 1 each MISCELLANE ONCE PRN PRN Reason: Consult order Sevelamer Carbonate (Sevelamer Carbonate Tablet 800 Mg Tablet) 800 mg PO TIDWM [facility] Last Admin: 09/07/22 08:10 Dose: 800 mg Documented By: DENICE Sodium Chloride (0.9 % Sodium Chloride Flush 3 Ml Syringe) [facility] Last Admin: 09/07/22 08:11 Dose: 3 ml Documented By: DENICE Labs CBC & Chem 7: 09/07/22 06:27 09/07/22 06:27 Labs: Laboratory Results - last 24 hr 09/06/22 09/07/22 09/07/22 01:56 06:27 06:27 MCV MCH MCHC RDW Plt Count MPV Immature Gran % (Auto) Neut % (Auto) Lymph % (Auto) [place] % (Auto) Eos % (Auto) Baso % (Auto) Lymph # (Auto) [place] # (Auto) Eos # (Auto) Baso # (Auto) Abs Immat Gran (auto) Absolute Neuts (auto) Absolute Nucleated RBC Nucleated RBC % (auto) Anion Gap Estim Creat Clear Calc Estimated GFR Random Glucose Calcium B-Natriuretic Peptide 1949 H Blood Type O Positive Antibody Screen POSITIVE Antibody Identification Anti-e Crossmatch (AHG) See Detail Post-Tx Rxn FATUMA Result TNP 09/07/22 09/07/22 06:27 06:27 MCV 88.5 D MCH 28.7 MCHC 32.4 RDW 21.3 H Plt Count 69 L MPV Not Reportable Immature Gran % (Auto) 0.2 Neut % (Auto) 78.7 H Lymph % (Auto) 10.3 L [place] % (Auto) 7.8 Eos % (Auto) 2.5 Baso % (Auto) 0.5 Lymph # (Auto) 0.5 L [place] # (Auto) 0.3 Eos # (Auto) 0.1 Baso # (Auto) 0.0 Abs Immat Gran (auto) 0.01 Absolute Neuts (auto) 3.5 Absolute Nucleated RBC 0.000 Nucleated RBC % (auto) 0.0 Anion Gap 18 Estim Creat Clear Calc 12.8 Estimated GFR 12 Random Glucose 62 D Calcium 8.9 B-Natriuretic Peptide Blood Type Antibody Screen Antibody Identification Crossmatch (AHG) Post-Tx Rxn FATUMA Result Assessment and Plan (1) Anemia: Status: Acute Plan This is a 67-year-old male with pertinent history of ESRD on hemodialysis, (Thursday/Thursday/Thursday), systolic heart failure, essential hypertension, coronary artery disease, hypothyroidism, PAD status post bilateral AKA who was sent from [facility] for low blood count. Hypertensive crisis due to volume overload after blood transfusion.? Systolic blood pressure over 200.? Placed on bipap due to hypoxia, tx to ICU for nitro drip, Patient was administered 1 sublingual nitroglycerin, 2 in of nitroglycerin paste placed to the chest and nitroglycerin drip started at 400 mcg.? tx to ICU for emergent dialysis volume overload resolved after dialysis Symptomatic acute on chronic anemia, non blood loss 10 secondary to chronic kidney disease Total 3 units PRBCs ordered but patient only received 1 unit due to TACO GI consultation for question of GI bleed Continue Epogen Transfuse only with dialysis Pancytopenia Secondary to chronic kidney disease Platelets 69 End-stage renal disease on hemodialysis Thursday, Thursday, Thursday, last dialysis 09/05/2022 Continue sevelamer carbonate, vitamin D3 Nephrology cfollowing Chronic systolic heart failure Compensated Continue beta-debbi Hypothyroidism Continue Synthroid Coronary artery disease/peripheral arterial disease Continue aspirin and statin GERD Continue PPI Hypertension Stable blood pressure Continue clonidine, isosorbide, nifedipine DVT prophylaxis with pneumatic compression boots due to severe anemia Attending Dr. Wang DNR continued hospitalization for anemia, and hypertensive crisis Time Spent With Patient Time: Total time managing care of this patient today ____ minutes. Quality Stroke Does the patient have a stroke diagnosis?: No VTE Prior VTE?: No VTE Risk Level:: Medical - low VTE Device Contraindication: Treatment Not Indicated VTE Drug Contraindication: Treatment Not Indicated
[2022-09-07] MEDS: Acetaminophen 325 MG TABLET 650 MG PO ×2 (11:55→21:23)
--- NOTE | 2022-09-07 14:33 | P.CONNP_ITS ---
History of Present Illness Reason for Consult Consult date: 09/07/22 Reason for consult: Management of ESRD, HTN Chief Complaint Chief complaint: Weakness History of Present Illness Narrative: Mr. Small is a 67 yo AA male with history of ESRD on hemodialysis, (Thursday/Thursday/Thursday at [facility]), ischemic TRIPOLER with chronic systolic heart failure, DM II, essential hypertension, coronary artery disease, h ypothyroidism, PAD status was bilateral AKA who was sent from intermediate for anemia , hg 5.9.? Patient states he he has been feeling weak over the last few days.? No focal weakness.? Admits easy fatigability.? No hematuria, hematemesis, melena or hematochezia.? Patient denies chest discomfort, palpitations, shortness of breath.? He denies fever, chills, abdominal pain, changes in urinary or bowel habits.? States he has received blood transfusion the past. In the emergency department, his hemoglobin noted to be 6.3. He was admitted and transfusions began, during his third unit, he became hypertensive and developed flash pulmonary edema. I was notified by Dr. Mitchell and we arranged for urgent UF last night. His BP reached 220/120 or so. He required high dose Ntg drip and then nicardipine. He was on bipap. He improved significantly with UF/HD 1 hr and is doing much better. He has chronic oxygen dependence and live at [facility] in [place]. He is a diabetic. He has a hx of pancytopenia. I do not have the details about his hematologic history. Review of Systems Comments: weakness Comments: denies chest pain, has chronic dyspnea Comments: chronic sob on oxygen, but better Comments: denies melena Comments: has required transfusions in the past [facility] Past Medical History Medical History (Updated 09/07/22 @ 14:44 by Sheri Pleitez MD) Above knee amputation of left lower extremity Amputation above knee End stage chronic kidney disease Essential hypertension Ischemic cardiomyopathy Myocardial infarction involving left anterior descending (LAD) coronary artery Social History Social History Household Members: None Household Members Other:: [facility] Housing: Senior Living Housing Other:: [facility] Do you presently have visiting nurse or other home services: No Unable to assess alcohol history related to: Unable to respond Alcohol intake: former Patient Tobacco Use Status: Former Tobacco user Quit Date: 20 YEARS AGO Tobacco use type: Cigarette Years Smoked: 20 e-Cigarette/Vaping Use: Never Used Second Hand Smoke Exposure: No Advance Directives Date on File: 05/26/22 service: No Meds Allergies Allergy/AdvReac Type Severity Reaction Status Date / Time bee pollen [bee stings] Allergy Angioedema Verified 09/06/22 01:36 lisinopril Allergy Cough Verified 09/06/22 01:35 Active Medications: Current Medications Acetaminophen (Acetaminophen 325 Mg Tablet) 650 mg PO Q6H PRN PRN Reason: Pain, Mild (Pain Scale 1-3) Last Admin: 09/07/22 11:55 Dose: 650 mg Atorvastatin Calcium (Atorvastatin Calcium 80 Mg Tablet) 80 mg PO BEDTIME [facility] Last Admin: 09/06/22 22:14 Dose: 80 mg Bisacodyl (Bisacodyl 10 Mg Supp.Rect) 10 mg FL DAILY PRN PRN Reason: IF MOM INEFFECTIVE FOR BM Brimonidine Tartrate (Brimonidine Tartrate 0.2% Oph 5 Ml Bottle) 1 drop EYE- BOTH BID [facility] Last Admin: 09/07/22 10:17 Dose: Not Given Carvedilol (Carvedilol 25 Mg Tablet) 25 mg PO BID [facility]; Protocol Last Admin: 09/07/22 08:10 Dose: 25 mg Clonidine HCl (Clonidine Hcl 0.2 Mg Tablet) 0.2 mg PO SuTuTh@0900 [facility]; Protocol Last Admin: 09/07/22 10:18 Dose: 0.2 mg Docusate Sodium (Docusate Sodium 100 Mg Capsule) 100 mg PO BID [facility] Last Admin: 09/07/22 08:10 Dose: 100 mg Epoetin Shayla (Epoetin Shayla 20,000 Unit/Ml Vial) 20,000 unit SUBCUT MoWeFr@1800 [facility] Furosemide (Furosemide 20 Mg/2 Ml Vial) 20 mg IVPUSH ONCE PRN; Protocol PRN Reason: TACO Last Admin: 09/06/22 14:50 Dose: 20 mg Gabapentin (Gabapentin 100 Mg Capsule) 100 mg PO DAILY [facility] Last Admin: 09/07/22 08:10 Dose: 100 mg Hydralazine HCl (Hydralazine Hcl 20 Mg/Ml Vial) 5 mg IVPUSH Q4H PRN; Protocol PRN Reason: SBP>180 Last Admin: 09/07/22 08:12 Dose: 5 mg Isosorbide Mononitrate (Isosorbide Mononitrate 30 Mg Tab.Er.24h) 30 mg PO DAILY [facility]; Protocol Last Admin: 09/07/22 08:10 Dose: 30 mg Levothyroxine Sodium (Levothyroxine Sodium 200 Mcg Tablet) 200 mcg PO DAILY@0600 [facility] Last Admin: 09/07/22 06:02 Dose: 200 mcg Melatonin (Melatonin 3 Mg Tablet) 6 mg PO BEDTIME PRN PRN Reason: Insomnia Last Admin: 09/06/22 22:14 Dose: 6 mg Multivitamins/Vitamin C (Multivitamin Tablet) 1 tab PO DAILY [facility] Last Admin: 09/07/22 08:10 Dose: 1 tab Nifedipine (Nifedipine Er 60 Mg Tab.Er.24) 60 mg PO DAILY [facility]; Protocol Last Admin: 09/07/22 08:10 Dose: 60 mg Nitroglycerin (Nitroglycerin 0.4 Mg Tab.Subl) 0.4 mg SUBLINGUAL Q5MX3 PRN PRN Reason: htn Non-Formulary Medication (Cholecalciferol (Vitamin D3)) 1,250 mcg PO Q28H [facility] Omeprazole (Omeprazole 20 Mg Capsule.Dr) 20 mg PO BID@0630,1630 [facility] Last Admin: 09/07/22 06:02 Dose: 20 mg Ondansetron HCl (Ondansetron Hcl 4 Mg/2 Ml Vial) 4 mg IVPUSH Q8H PRN PRN Reason: Nausea and Vomiting Last Admin: 09/06/22 19:56 Dose: 4 mg Oxycodone HCl (Oxycodone Hcl Immed Release 5 Mg Tablet) 5 mg PO Q4H PRN PRN Reason: Pain, Mild (Pain Scale 1-3) Last Admin: 09/07/22 10:21 Dose: 5 mg Pharmacy Consult (Consult Rx Perform Med Rec) 1 each MISCELLANE ONCE PRN PRN Reason: Consult order Sevelamer Carbonate (Sevelamer Carbonate Tablet 800 Mg Tablet) 800 mg PO TIDWM [facility] Last Admin: 09/07/22 11:52 Dose: 800 mg Sodium Chloride (0.9 % Sodium Chloride Flush 3 Ml Syringe) [address] [facility] Last Admin: 09/07/22 08:11 Dose: 3 ml Home Medications Medication Instructions Recorded Confirmed Last Taken Type acetaminophen 325 mg tablet 650 mg PO Q6H PRN Pain (Scale 05/23/22 09/06/22 09/05/22 History Score 4-6) atorvastatin 80 mg tablet 80 mg PO BEDTIME 05/23/22 09/06/22 09/05/22 History bisacodyl 10 mg rectal suppository 10 mg FL DAILY PRN IF MOM 05/23/22 09/06/22 09/05/22 History INEFFECTIVE FOR BM brimonidine 0.2 % eye drops 1 drp ophthalmic (eye) BID 05/23/22 09/06/22 09/05/22 History carvedilol 25 mg tablet 25 mg PO BID 05/23/22 09/06/22 09/05/22 History clonidine HCl 0.2 mg tablet 0.2 mg PO SuTuTh@0900 05/23/22 09/06/22 09/05/22 History docusate sodium 100 mg capsule 100 mg PO BID 05/23/22 09/06/22 09/05/22 History gabapentin 100 mg capsule 100 mg PO DAILY 05/23/22 09/06/22 09/05/22 History isosorbide mononitrate 30 mg 1 tab PO DAILY 05/23/22 09/06/22 09/05/22 History tablet,extended release 24 hr pantoprazole 40 mg tablet,delayed 40 mg PO BID 05/23/22 09/06/22 09/05/22 History release sevelamer carbonate 800 mg tablet 800 mg PO TIDWM 05/23/22 09/06/22 09/05/22 History vitamin B complex 1 tab PO DAILY 05/23/22 09/06/22 09/05/22 History cholecalciferol (vitamin D3) 1,250 1,250 mcg PO Q28H 08/23/22 09/06/22 08/09/22 History mcg (50,000 unit) capsule epoetin shayla 20,000 unit/mL 20,000 unit subcut MOWEFR 08/23/22 09/06/22 09/05/22 History injection solution (Epogen) levothyroxine 200 mcg tablet 200 mcg PO DAILY@0600 08/23/22 09/06/22 09/05/22 History nifedipine 60 mg tablet,extended 60 mg PO DAILY 08/23/22 09/06/2209/05/22 History release 24 hr Physical Exam Vital Signs: Last Vital Signs Temp 97.9 F 09/07/22 12:00 Pulse 78 09/07/22 12:00 Resp 17 09/07/22 12:00 BP 168/52 H 09/07/22 12:00 Pulse Ox 98 09/07/22 12:00 O2 Del Method 09/07/22 12:00 O2 Flow Rate 3 09/07/22 12:00 FiO2 30 09/06/22 19:45 BMI result Body Mass Index 21.2 Const Other: Feels much better Alert, interactive Nutritional Appearance: well nourished and other (bilateral AKAs) Neck Other: no carotid bruits Resp Other: Bibasilar rales noted Cardio Other: RRR, no rub, S4 present, No JVD on exam Other: soft, nondistended, nonttender Skin Other: Many tattooes Neuro Other: Alert and oriented No focalfindings PERRLA Speech normal Extrem Other: Bilateral AKAS RUE AVF with thrill Results Lab Results Result Diagrams: 09/07/22 06:27 09/07/22 06:27 Lab results: Chemistry 09/06/22 09/07/22 01:57 06:27 Sodium 143 141 Potassium 3.7 4.3 Carbon Dioxide 32 H 29 BUN 15 25 H Creatinine 3.91 H 4.70 H* Calcium 8.6 8.9 Hematology 09/06/22 09/06/22 09/07/22 01:57 09:58 06:27 WBC 3.1 L 4.4 L Hgb 6.3 L* D 6.3 L* 8.5 L D Plt Count 58 L 69 L Assessment and Plan (1) End stage chronic kidney disease: Status: Acute (2) Ischemic cardiomyopathy: Status: Acute (3) Hypertensive crisis: Status: Acute (4) Pancytopenia: Status: Acute Plan 67 yo AA man with ESRD in the setting of HTN and type II DM and PAD admitted with profound acute on chronic anemia on a background of ESRD and uncontrolled HTN. Developed vol overload and hypertensive crisis last night after transfusion of 3 PRBCs by report. Emergent UF and 1 HD last night Doing better. 1. ESRD: will HD in am; pt currently dialyzing [facility] which is closing end of month. He is interested in moving to [facility] as he lives in [place]. I w ill reach out to see if there is a spot for him;if not, he would like to go to [facility] if it reopens 2. HTN and ischemic TRIPOLER: pt might benefit from being on entresto for both purposes along with carvedilol 3. Pancytopenia: I am not sure what the cause of this is and what prior hematologic workup he has had Will review with his primary security assessor. may need bone marrow biopsy Time Spent With Patient Time: Total time managing care of this patient today ____ minutes. Procedures Date of Service Date of Service: 09/07/22
--- NOTE | 2022-09-07 16:57 | P.EN_ITS ---
Event Note Date of Service: 09/07/22 Event Note: GI Consult-Full note dictated-History from patient and EMR Imp: 67 yo admitted with symptomatic anemia, but no obvious bleeding. He is s/p 1 u PRBC which led to TACO with pulmonary edema and HTN that required urgent dialysis. He has been on HD for CRF for many years, has a history of Hep C for which he reports he is s/p successful treatment with oral meds, and a history of anemia for which he describes previous transfusions and GI procedures at [facility] with the finding of GAVE (Gastric Antral Vascular Ectasia) by his description. He describes both upper endoscopies and colonoscopies in [place], as well as being treated for the GAVE endoscopically. He denies any localizing GI symptoms now nor any reported signs of GI bleeding at the [facility]. He denies smoking nor history of EtOH. He has a hx of CAD and PVD, but does not appear to be on any blood thinners. He appears to have developed a pancytopenia as compared to CBC's over the summer. He is presently feeling better since his admission. Diff dx: I suspect the anemia is multifactorial from chronic blood loss from the reported GAVE, anemia due to his CRF and chronic disease, and ? of a bone marrow issue and/or chronic liver disease causing the pancytopenia. Rec: Observe. Continue PPI. I will add Carafate for additional gastric mucosal protection in regard to the reported GAVE. Check Iron, B12, and Folate, and replete as needed. Consider Hematology consult re: pancytopenia. Check abdominal U/S for signs of liver disease and splenomengaly that could be causing the pancytopenia. I will hold off on repeating an EGD and colonoscopy but at some point it would be helpful to review any previous GI records from [place] such that we can determine if repeating them would be helpful. Monitor Hgb at outpatient HD closely such that transfusions can be done there electively, rat her than needing them done ugently. d/W patient. Thanks. Time Spent With Patient Time: Total time managing care of this patient today ____ minutes.
[2022-09-07] MEDS: Sucralfate 1 GM TABLET PO (17:14)
[2022-09-07] MEDS: Atorvastatin Calcium 80 MG TABLET PO (21:20)
--- NOTE | 2022-09-08 02:28 | CONS_ITS ---
DATE OF SERVICE: 09/07/2022 REASON FOR CONSULTATION: Anemia. HISTORY OF PRESENT ILLNESS: This has been obtained from the patient and the medical record. The patient is a 67-year-old male with multiple underlying medical problems, transferred from the [facility] due to weakness and the finding of significant anemia. The patient does have chronic renal failure, for which he is on regular outpatient hemodialysis. He also does have a history of anemia, for which he has required transfusions in the past. The patient describes previous GI workups at [facility] while living in [place]. He reports that he just moved to this area several months ago and is living in a [facility]. 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 He does describe that he underwent an endoscopy for treatment of that as well. He describes that colonoscopies were negative as far as he can recall. He has had intermittent transfusions, although has had some complications from those including pulmonary edema. He denies any recent GI symptoms such as significant heartburn, dysphagia, nor abdominal pain. He has had some occasional vomiting, but denies any hematemesis, nor coffee-grounds emesis. He reports his bowel movements are fairly regular without any melena, nor hematochezia. He denies any known family history of GI malignancy. From his medication list, it does not appear that he is on any aspirin, NSAIDs, nor blood thinners. Since admission here, he did receive 1 unit of blood, but that led to some pulmonary edema and hypertension that had to be treated with emergent dialysis last evening. He does describe having been treated with oral medication for hepatitis C with successful results as far as he knows. He does not smoke, nor use any alcohol, at least at the present time. He denies any known history of liver disease in himself. Today, he feels better both in regard to his pulmonary edema and weakness that led to his hospitalization. He describes that he was able to eat comfortably today. MEDICATIONS: His medications list from the [facility] included atorvastatin, carvedilol, vitamin D, clonidine, Colace, Epogen, gabapentin, isosorbide, levothyroxine, nifedipine, pantoprazole, vitamins, and sevelamer carbonate. His medications here in the hospital include acetaminophen, atorvastatin, Dulcolax p.r.n., carvedilol, clonidine, Colace, Epogen, Lasix, gabapentin, hydralazine, isosorbide, levothyroxine, melatonin, vitamins, nifedipine, nitroglycerin p.r.n., omeprazole 20 mg b.i.d., Zofran, oxycodone and sevelamer. PAST MEDICAL HISTORY: Chronic renal failure, for which he is on hemodialysis for over 10 years by his description. Hypertension. Hyperlipidemia. He describes a previous history of diabetes, which apparently resolved. Coronary artery disease with previous SD and coronary artery stent placement. Bilateral above-knee amputations in relation to his diabetes and peripheral vascular disease. He describes hernia surgery as a child. He cannot recall any other surgeries. History of pulmonary edema. He denies history of stroke, nor lung disease. SOCIAL HISTORY: He lives at the [facility]. He presently does not smoke, nor use any significant alcohol. FAMILY HISTORY: Noncontributory. REVIEW OF SYSTEMS: CONSTITUTIONAL: Presently feels well, although yesterday was feeling quite poorly in relation to the pulmonary edema and weakness from the anemia. CARDIAC: No chest pain. PULMONARY: No coughing or hemoptysis. GI: As above. PHYSICAL EXAMINATION: GENERAL: The patient is a pleasant, alert, cooperative male. He answers questions appropriately. HEENT: Anicteric sclerae. NECK: Supple. CARDIAC: Normal S1, S2. ABDOMEN: Soft, nondistended, nontender without palpable mass. LABORATORY DATA: His admitting hemoglobin was 6.3 with MCV of 95. The most recent CBC prior to that on August 24 showed hemoglobin of 8.4 with a white blood cell count of 3.7 and platelet count of 64,000. He did receive 1 unit of blood last evening and his hemoglobin today is up to 8.5 with a white blood cell count of 4.4 and platelet count of 69,000. In April, he had a platelet count of 141,000 with a white blood cell count of 10.9 and hemoglobin of 9.3. PT was 14.8 with INR 1.3 yesterday. Normal electrolytes. BUN 25, creatinine 4.7. Normal LFTs except for an alkaline phosphatase of 150. Albumin 3.8. COVID was negative. Hepatitis B antigen was negative in April. Chest x-ray on admission reveals some mild congestion and small bilateral pleural effusions, right greater than left. IMPRESSION: In regard to the patient's anemia, I suspect this is multifactorial in relation to his reported gastric antral vascular ectasia with associated chronic blood loss on that basis despite what he reports as potential treatment in the past. Other contributing factors would certainly be his renal failure and chronic disease, and some other possible hematologic causes given the associated pancytopenia in addition to just the anemia. The pancytopenia may be related to a primary bone marrow issue or perhaps some underlying chronic liver disease and splenomegaly causing pancytopenia given the reported history of previous hepatitis C. At this point, he appears stable, does not appear to be having any active GI complaints, nor GI bleeding. PLAN: At this point, I will continue to observe him. I will continue his oral PPI, but I shall add Carafate twice a day for additional gastric mucosal protection given the reported history of GAVE. I shall check iron, B12 and folate levels, and would recommend those be replenished as needed. I would consider Hematology consult regarding the pancytopenia. I did order an abdominal ultrasound to inspect for any liver disease and splenomegaly that could be contributing to the pancytopenia. In regard to repeating an endoscopy and colonoscopy, I would hold off on that for the time being, but it would be helpful to get any previous GI records from [place] if possible. If we could review those, then we can determine if repeating either an upper endoscopy and/or colonoscopy would be helpful. I would also recommend that his hemoglobin be monitored closely as an outpatient at hemodialysis such that transfusions could be done there electively rather than needing them more urgently. This has been discussed with the patient. Thank you for the consultation. MD ROMÁN Recio/LAKESHIA / [id number]
[2022-09-08 03:11] VITALS: BP 100/83; PULSE 63; RESP 18; TEMP 36.2; O2SAT 99
[2022-09-08] MEDS: Levothyroxine Sodium 200 MCG TABLET PO (05:05)
[2022-09-08] MEDS: Omeprazole 20 MG CAPSULE.DR PO ×2 (05:05→16:44)
[2022-09-08 07:04] LABS: Basophils Percent Auto 0.4 % (0-2); Eosinophils Absolute Auto 0.2 X10*3/uL (0.0-0.4); Hematocrit 26.7 % (42.0-52.0); Hemoglobin 8.5 g/dl (14.0-18.0); Imm Gran Abs Auto 0.01 X10*3/uL (0.00-0.03); Imm Gran Pct Auto 0.2 % (0.0-0.4); Lymphocytes Absolute Auto 0.8 X10*3/uL (1.2-4.9); Lymphocytes Percent Auto 18.4 % (20-40); MANUAL DIFF FLAG SCAN; Mean Corpuscular HGB Conc 31.8 g/dl (31.0-36.0); Mean Corpuscular Volume 91.1 fL (80.0-98.0); Mean Platelet Volume 13.1 fL (9.4-12.4); Monocytes Absolute Auto 0.3 X10*3/uL (0.1-1.2); Monocytes Percent Auto 7.1 % (2-11); Neutrophils Absolute Auto 3.1 x10*3/uL (2.0-8.3); Neutrophils Percent Auto 69.9 % (45-73); Platelet Count 100 X10*3/uL (160-400); Red Blood Count 2.93 X10*6/uL (4.60-5.80); Red Cell Distribution Width 20.2 % (11.0-16.0); SCAN SMEAR FLAG 1; White Blood Count 4.5 X10*3/uL (4.8-10.8)
[2022-09-08 07:05] LABS: PLT ABN DIST 1
[2022-09-08 07:11] LABS: SLIDE REVIEW VERIFIED
[2022-09-08 07:23] LABS: Iron 122 mcg/dL (45-160); Percent Iron Saturation 55 % (15-50); Total Iron Binding Capacity 221 mcg/dL (228-428); Unsaturated Iron Binding 99 ug/dL
[2022-09-08 07:36] LABS: Anion Gap 13 (12-20); Blood Urea Nitrogen 19 mg/dL (9-16); Calcium 8.9 mg/dL (8.4-10.2); Carbon Dioxide 26 mmol/L (22-29); Chloride 101 mmol/L (96-108); Creatinine Clr Calc Pharmacy 18.1; Estimated Glomerular Filt Rate 19; Glucose Random 92 mg/dL (60-115); Potassium 3.3 mmol/L (3.3-5.1); Sodium 137 mmol/L (135-145)
[2022-09-08 07:44] LABS: Ferritin 1271 ng/mL (20-250)
[2022-09-08 08:03] LABS: Folate 5.5 ng/mL (> or = 4.0)
[2022-09-08 08:33] LABS: Vitamin B12 683 pg/mL (200-900)
[2022-09-08 09:18] VITALS: BP 193/84; PULSE 69
[2022-09-08] MEDS: hydrALAZINE HCl 20 MG/ML VIAL 5 MG IVPUSH (09:23)
[2022-09-08] MEDS: 0.9 % Sodium Chloride Flush 3 ML SYRINGE IVFLUSH ×2 (09:24→16:44)
[2022-09-08] MEDS: Isosorbide Mononitrate 30 MG TAB.ER.24H PO (09:25)
[2022-09-08] MEDS: Gabapentin 100 MG CAPSULE PO (09:25)
[2022-09-08] MEDS: Sevelamer Carbonate Tablet 800 MG TABLET PO ×3 (09:26→16:44)
[2022-09-08] MEDS: Sucralfate 1 GM TABLET PO ×2 (09:26→16:44)
[2022-09-08] MEDS: carvediloL 25 MG TABLET PO (09:26)
[2022-09-08] MEDS: oxyCODONE HCl Immed Release 5 MG TABLET PO ×2 (09:26→16:44)
[2022-09-08] MEDS: Multivitamin TABLET 1 TAB PO (09:26)
[2022-09-08] MEDS: Docusate Sodium 100 MG CAPSULE PO (09:26)
[2022-09-08] MEDS: NIFEdipine ER 60 MG TAB.ER.24 PO (09:29)
[2022-09-08 10:00] VITALS: BP 136/61; PULSE 73; RESP 20; TEMP 36.6; O2SAT 98
[2022-09-08] MEDS: ondansetron HCL 4 MG/2 ML VIAL IVPUSH (10:09)
--- NOTE | 2022-09-08 10:55 | P.PNNP_ITS ---
Subjective Subjective Date of Service: 09/08/22 Interval history: Seen and examined, events noted Physical Exam Vital Signs: Vital Signs: Last Vital Signs Temp 97.8 F 09/08/22 10:00 Pulse 73 09/08/22 10:00 Resp 20 09/08/22 10:00 BP 136/61 09/08/22 10:00 Pulse Ox 98 09/08/22 10:00 O2 Del Method 09/08/22 10:00 O2 Flow Rate 3 09/08/22 10:00 FiO2 30 09/06/22 19:45 BMI result Body Mass Index 21.2 Const: Other: Feels much better Alert, interactive Nutritional Appearance: well nourished and other (bilateral AKAs) Neck: Other: no carotid bruits Resp: Other: Bibasilar rales noted Cardio: Other: RRR, no rub, S4 present, No JVD on exam : Other: soft, nondistended, nonttender Skin: Other: Many tattooes Neuro: Other: Alert and oriented No focalfindings PERRLA Speech normal Extrem: Other: Bilateral AKAS RUE AVF with thrill Objective Data Labs CBC & Chem 7: 09/08/22 06:18 09/08/22 06:18 Labs: Laboratory Results - last 24 hr 09/08/22 09/08/22 09/08/22 06:18 06:18 06:18 WBC 4.5 L RBC 2.93 L Hgb 8.5 L Hct 26.7 L MCV 91.1 MCH 29.0 MCHC 31.8 RDW 20.2 H Plt Count 100 L D MPV 13.1 H Immature Gran % (Auto) 0.2 Neut % (Auto) 69.9 Lymph % (Auto) 18.4 L [place] % (Auto) 7.1 Eos % (Auto) 4.0 Baso % (Auto) 0.4 Lymph # (Auto) 0.8 L [place] # (Auto) 0.3 Eos # (Auto) 0.2 Baso # (Auto) 0.0 Abs Immat Gran (auto) 0.01 Absolute Neuts (auto) 3.1 Absolute Nucleated RBC 0.000 Nucleated RBC % (auto) 0.0 Smear Tech's Comments VERIFIED Sodium Potassium Chloride Carbon Dioxide Anion Gap BUN Creatinine Estim Creat Clear Calc Estimated GFR Random Glucose Calcium Iron 122 TIBC 221 L % Saturation 55 H Unsat Iron Binding 99 Ferritin 1271 H Vitamin B12 683 Folate 5.5 09/08/22 06:18 WBC RBC Hgb Hct MCV MCH MCHC RDW Plt Count MPV Immature Gran % (Auto) Neut % (Auto) Lymph % (Auto) [place] % (Auto) Eos % (Auto) Baso % (Auto) Lymph # (Auto) [place] # (Auto) Eos # (Auto) Baso # (Auto) Abs Immat Gran (auto) Absolute Neuts (auto) Absolute Nucleated RBC Nucleated RBC % (auto) Smear Tech's Comments Sodium 137 Potassium 3.3 D Chloride 101 Carbon Dioxide 26 Anion Gap 13 BUN 19 H Creatinine 3.34 H Estim Creat Clear Calc 18.1 Estimated GFR 19 Random Glucose 92 D Calcium 8.9 Iron TIBC % Saturation Unsat Iron Binding Ferritin Vitamin B12 Folate Procedures Date of Service Date of Service: 09/08/22 Assessment & Plan Assessment and plan (1) End stage chronic kidney disease: Status: Acute (2) Ischemic cardiomyopathy: Status: Acute (3) Hypertensive crisis: Status: Acute (4) Pancytopenia: Status: Acute Plan 67 yo AA man with ESRD in the setting of HTN and type II DM and PAD admitted with profound acute on chronic anemia on a background of ESRD and uncontrolled HTN. Developed vol overload and hypertensive crisis after transfusion of 3 PRBCs by report. Doing better. 1. ESRD:this am and gume well--askng to go home he has spot at [facility] and working on switch in [facility] ( this an be done as outpt ) 2. HTN: controlled now 3. Anermia: Hb stable after xfusion; cont epo and IV Fe as outpt REC: ok to /c home today from renal standpoint Time Spent With Patient Time: Total time managing care of this patient today ____ minutes. Progress Note: Quality Stroke Does the patient have a stroke diagnosis?: No
[2022-09-08 12:00] VITALS: BP 140/78; PULSE 75; RESP 19; TEMP 36.3; O2SAT 100
--- NOTE | 2022-09-08 13:17 | MHC.CM.PN ---
per rounds pt may be [facility] after [facility] ultrasound
--- NOTE | 2022-09-08 13:23 | P.CDIC_ITS ---
CDI Concurrent Query Documentation Clarification: PHYSICIAN'S DOCUMENTATION REQUEST Date of Query: 09/08/22 1323 Patient Name: Clinton Small Admit Date: 09/06/22 Dear Doctor, A review of the medical record indicates additional documentation may be needed. Please review below and update the documentation accordingly. Clinical Indicators: A diagnosis of acute on chronic systolic CHF was made on 09/06/22 but the chart lacks subsequent documentation. Please clarify this diagnosis based on the findings below: Risk Factors/Clinical Indicators/Treatments POA/TREAT/RESOLVED/RULE OUT Per provider progress note on 09/06: IMPRESSION: 4. Acute systolic heart failure. Per provider progress note on 09/07: Chronic systolic heart failure Compensated Other indicators: Patient requiring emergent dialysis BNP on 09/07: 1949 Please provide further specificity regarding the most likely type and acuity of CHF you are evaluating, treating, or monitoring. Examples include: * Acute on chronic systolic CHF * Chronic systolic CHF * Unable to determine Use of terms such as suspected, likely, concern for, or probable (associated with a specific diagnosis that is being evaluated, monitored, or treated as if it exists) are acceptable and can be coded in the inpatient setting, when documented at the time of discharge. Thank you, Ashley Allen MS, RN, CCRN Extension: [phone] Please use your independent medical judgment in providing your response. THIS QUERY IS PART OF THE PERMANENT MEDICAL RECORD Other Diagnosis: other
--- NOTE | 2022-09-08 14:11 | P.DS_ITS ---
DS: Providers Provider Date of Service: 09/08/22 Date of admission: 09/06/22 05:13 Primary care physician: Ashley Byrne MD Consults: 09/06/22 05:10 Consult to Gastroenterology Routine Consulting Provider: Fermín Robison Reason for consultation: acute anemia 09/06/22 05:15 Consult to Nephrology Routine Consulting Provider: Brendan Saini Reason for consultation: ESRD on HD Attending physician on discharge: [facility] Discharging clinician: Emani Brown DS: Diagnosis Discharge Diagnosis (1) End stage chronic kidney disease: Status: Acute (2) Ischemic cardiomyopathy: Status: Acute (3) Hypertensive crisis: Status: Acute (4) Pancytopenia: Status: Acute DS: Summary Hospital Course Hospital Course: This is a 67-year-old male with pertinent history of ESRD on hemodialysis, (Thursday/Thursday/Thursday), systolic heart failure, essential hypertension, coronary artery disease, hypothyroidism, PAD status was bilateral AKA who was sent from care home for low blood count.? Patient states he he has been feeling weak over the last few days.? No focal weakness.? Admits easy fatigability.? No hematuria, hematemesis, melena or hematochezia.? Patient denies chest discomfort, palpitations, shortness of breath.? He denies fever, chills, abdominal pain, changes in urinary or bowel habits.? States he has received blood transfusion the past. In the emergency department, his hemoglobin noted to be 6.3 Hypertensive crisis due to volume overload after blood transfusion.? Systolic blood pressure over 200.? Placed on bipap due to hypoxia, tx to ICU for nitro drip, Patient was administered 1 sublingual nitroglycerin, 2 in of nitroglycerin paste placed to the chest and nitroglycerin drip started at 400 mcg.? tx to ICU for emergent dialysis volume overload resolved after dialysis Symptomatic acute on chronic anemia, non blood loss secondary to chronic kidney disease Total 3 units PRBCs ordered but patient only received 1 unit due to TACO GI consultation for question of GI bleed, no further workup at this time as patient has had no bleeding Continue Epogen Transfuse blood only with dialysis Pancytopenia Secondary to chronic kidney disease and hypersplenism Platelets 69 End-stage renal disease on hemodialysis Thursday, Thursday, Thursday, last dialysis 09/05/2022 Continue sevelamer carbonate, vitamin D3 Nephrology cfollowing Chronic systolic heart failure Compensated Continue beta-debbi Hypothyroidism Continue Synthroid Coronary artery disease/peripheral arterial disease Continue aspirin and statin GERD Continue PPI Hypertension Stable blood pressure Continue clonidine, isosorbide, nifedipine Time Spent with Patient Time attestation: Total time managing care of this patient today ____ minutes. Discharge coordination time: Greater than 30 minutes Quality: Safe Use of Opioids Does Pt have an Active Cancer Diagnosis on the Problem List?: No Quality: Stroke Does the patient have a stroke diagnosis?: No Physical Exam Vital Signs: Vital Signs: Last Vital Signs Temp 97.3 F 09/08/22 12:00 Pulse 75 09/08/22 12:00 Resp 19 09/08/22 12:00 BP 140/78 H 09/08/22 12:00 Pulse Ox 100 09/08/22 12:00 O2 Del Method 09/08/22 12:00 O2 Flow Rate 3 09/08/22 12:00 FiO2 30 09/06/22 19:45 BMI result Body Mass Index 21.2 Appearing in no acute distress head is normocephalic atraumatic eyes pupils are PERRLA sclera is anicteric mouth throat mucous membranes are intact and moist neck is supple no lymphadenopathy, no JVD noted lung sounds are clear to auscultation heart regular rate rhythm, clear S1, S2 positive bowel sounds, abdomen is soft, nontender neuro patient is alert x3, no focal deficits Bilat AKA DS: Data Data Completed and Pending Completed studies during hospitalization [Text1]: Procedures Insertion of Endotracheal Airway into Trachea, Via Natural or Artificial Opening (05/23/22) Insertion of Infusion Device into Superior Vena Cava, Percutaneous Approach (05/23/22) Performance of Urinary Filtration, Intermittent, Less than 6 Hours Per Day (08/23/22) Respiratory Ventilation, Less than 24 Consecutive Hours (05/23/22) Transfusion of Nonautologous Red Blood Cells into Peripheral Vein, Percutaneous Approach (08/23/22) Ultrasonography of Superior Vena Cava, Guidance (05/23/22) Labs on day of discharge: Laboratory Results - last 24 hr 09/08/22 09/08/22 09/08/22 06:18 06:18 06:18 WBC 4.5 L RBC 2.93 L Hgb 8.5 L Hct 26.7 L MCV 91.1 MCH 29.0 MCHC 31.8 RDW 20.2 H Plt Count 100 L D MPV 13.1 H Immature Gran % (Auto) 0.2 Neut % (Auto) 69.9 Lymph % (Auto) 18.4 L [place] % (Auto) 7.1 Eos % (Auto) 4.0 Baso % (Auto) 0.4 Lymph # (Auto) 0.8 L [place] # (Auto) 0.3 Eos # (Auto) 0.2 Baso # (Auto) 0.0 Abs Immat Gran (auto) 0.01 Absolute Neuts (auto) 3.1 Absolute Nucleated RBC 0.000 Nucleated RBC % (auto) 0.0 Smear Tech's Comments VERIFIED Sodium Potassium Chloride Carbon Dioxide Anion Gap BUN Creatinine Estim Creat Clear Calc Estimated GFR Random Glucose Calcium Iron 122 TIBC 221 L % Saturation 55 H Unsat Iron Binding 99 Ferritin 1271 H Vitamin B12 683 Folate 5.5 09/08/22 06:18 WBC RBC Hgb Hct MCV MCH MCHC RDW Plt Count MPV Immature Gran % (Auto) Neut % (Auto) Lymph % (Auto) [place] % (Auto) Eos % (Auto) Baso % (Auto) Lymph # (Auto) [place] # (Auto) Eos # (Auto) Baso # (Auto) Abs Immat Gran (auto) Absolute Neuts (auto) Absolute Nucleated RBC Nucleated RBC % (auto) Smear Tech's Comments Sodium 137 Potassium 3.3 D Chloride 101 Carbon Dioxide 26 Anion Gap 13 BUN 19 H Creatinine 3.34 H Estim Creat Clear Calc 18.1 Estimated GFR 19 Random Glucose 92 D Calcium 8.9 Iron TIBC % Saturation Unsat Iron Binding Ferritin Vitamin B12 Folate Discharge Plan Discharge Anticipated Discharge Date/Time: 09/08/22 13:55 Patient Disposition: Home, Self-Care Discharge Diagnosis: Hypertensive crisis secondary to flash pulmonary edema after blood transfusion Symptomatic acute on chronic anemia a non blood loss End-stage renal disease on hemodialysis Pancytopenia Referrals: Ashley Byrne MD [Primary Care Provider] - 1 Week Discharge Medications: New sucralfate 1 gram Tablet 1 g PO BIDAC Qty: 60 0RF Continued Epogen 20,000 unit/mL Solution 20,000 unit SUBCUT MOWEFR Rx Instructions: Give at diaylsis nifedipine 60 mg Tablet Extended Release 24hr 60 mg PO DAILY levothyroxine 200 mcg Tablet 200 mcg PO DAILY@0600 cholecalciferol (vitamin D3) 1,250 mcg (50,000 unit) Capsule 1,250 mcg PO Q28H Rx Instructions: Every month on the isosorbide mononitrate 30 mg tablet extended release 24 hr 1 tab PO DAILY atorvastatin 80 mg Tablet 80 mg PO BEDTIME brimonidine 0.2 % Drops 1 drp OPHTHALMIC (EYE) BID carvedilol 25 mg Tablet 25 mg PO BID Protocol: Hold for SBP< HOLD for SBP < : 110 Rx Instructions: must administer with a meal/food clonidine HCl 0.2 mg Tablet 0.2 mg PO SuTuTh@0900 gabapentin 100 mg Capsule 100 mg PO DAILY pantoprazole 40 mg Tablet,Delayed Release (Dr/Ec) 40 mg PO BID sevelamer carbonate 800 mg Tablet 800 mg PO TIDWM Rx Instructions: must administer with a meal/food acetaminophen 325 mg Tablet 650 mg PO Q6H PRN (Reason: Pain (Scale Score 4-6)) bisacodyl 10 mg Suppository 10 mg AK DAILY PRN (Reason: IF MOM INEFFECTIVE FOR BM) docusate sodium 100 mg Capsule 100 mg PO BID vitamin B complex Tablet 1 tab PO DAILY Discharge Orders: Discharge Order (Routine); Ordered 09/08/22 Ordered By: Emani Brown Diet: Advance to usual diet Activity on Discharge: As tolerated Stand Alone Forms: Patient Portal Discharge page Care Plan Goals: Complete resolution of symptoms Health Concerns: Hypertensive crisis secondary to flash pulmonary edema after blood transfusion Symptomatic acute on chronic anemia a non blood loss End-stage renal disease on hemodialysis Pancytopenia Plan of Treatment: Follow-up with primary care provider as needed Take all your medications as prescribed If blood transfusion is required, please do so during dialysis to avoid volume overload/flash pulmonary edema Assessment: See discharge summary
[2022-09-08 15:06] VITALS: BP 123/64; PULSE 76; RESP 18; TEMP 36.1; O2SAT 100
--- NOTE | 2022-09-08 15:45 | MHC.CM.PN ---
pt to be dcd back to [facility] at 530 by peter
[2022-09-08 16:00] LABS: COVID-19 Test Negative (Negative); IDNOW Serial# 16C4AD1C
--- NOTE | 2022-09-08 16:53 | PC.NURSE ---
report received from overnight RN. Pt in dialysis during change of shift. 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 BP elevated after dialysis, PRN hydralazine given with good effect per vital signs. Pt due to be discharged today, report [facility] x2 to [facility] between 1644 and 1654, transfer to the floor with no answer both times. EMS to transport pt. Call carbajal within reach, safety precautions taken.
== END 2022-09-08 17:58 | disposition home or self-care (01) | DRG 194 ==
LOC: HO.ED 03:28 → HO.EDOVER 05:19 → HO.IMC 16:46 → HO.ICU 18:52 → HO.IMC 23:59
PROVIDERS: Internal Medicine; Admitting Provider Student in an Organized Health Care Education/Training Program; Emergency Provider Emergency Medicine; PCP Internal Medicine; Visit Provider Nurse Practitioner Acute Care
DX: I13.2 Hypertensive heart and chronic kidney disease with heart failure and with stage 5 chronic kidney disease, or end stage renal disease (principal); D61.818 Other pancytopenia; N18.6 End stage renal disease; I42.9 Cardiomyopathy, unspecified; D63.1 Anemia in chronic kidney disease; I73.9 Peripheral vascular disease, unspecified; I50.23 Acute on chronic systolic (congestive) heart failure; E87.71 Transfusion associated circulatory overload; Z89.611 Acquired absence of right leg above knee; Z89.612 Acquired absence of left leg above knee; I25.10 Atherosclerotic heart disease of native coronary artery without angina pectoris; I16.1 Hypertensive emergency; D73.1 Hypersplenism; Z66 Do not resuscitate; I25.2 Old myocardial infarction; E03.9 Hypothyroidism, unspecified; Z99.2 Dependence on renal dialysis; Z20.822 Contact with and (suspected) exposure to COVID-19; Z87.891 Personal history of nicotine dependence; Z88.8 Allergy status to other drugs, medicaments and biological substances; Z79.890 Hormone replacement therapy; Z79.899 Other long term (current) drug therapy
CPT/HCPCS: 36415; 71045; 76700; 80048; 80076; 82607; 82728; 82746; 82947; 83540; 83735; 83880; 85014; 85018; 85025; 85610; 86078; 86850; 86870; 86900; 86901; 86902; 86920; 86922; 87635; 90999; 93005; 94660; 99285; J1170; J1940; J2405; P9016

== ENCOUNTER 2023-08-23 06:34 | Inpatient (IN) | payer MEDICARE, MEDICAID, SELFPAY ==
[2023-08-23] VITALS (19 sets, daily range): BP systolic 156–227; BP diastolic 58–90; PULSE 83–94; RESP 16–38; TEMP 36.6–36.7; O2SAT 92–100; BMI 74.0; BMI 67.4
--- NOTE | ~2023-08-23 | NM_ITS ---
Lexiscan Myocardial perfusion study Indication: Chest pain, assess for coronary disease and ischemia Technique: The patient was brought in for a Lexiscan perfusion study on 08/26/2023 and was injected 0.4 mg of Lexiscan intravenously. Within a minute of this injection 25 mCi of sestamibi was given intravenously. Images were obtained using the SPECT gamma camera interlaced with the gating device. Images were obtained in supine position. Resting perfusion study was performed on 08/27/2023. Patient was administered 25 mCi of sestamibi intravenously at rest. Images were then obtained in supine position. Images were processed with the software and compared side to side in short axis, horizontal long axis and vertical long axis views. Total DLP 148mGy-cm. Findings: Raw acquisition reviewed. Arms by the patient's side. The stress perfusion study showed slightly diminished tracer uptake in the basal part of inferolateral wall. There is some improvement with CT attenuation correction and hence there could be components of diaphragmatic attenuation artifact. . Gated LVEF calculation seems unreliable. Visually the normal range. Wall thickening also seems unremarkable. Resting study shows no significant perfusion abnormality. Gating at rest reveals normal wall motion. The findings are consistent with mild reversible defect in the basal inferolateral wall. Otherwise unremarkable. NM/NM timbo perf SPECT rest & str Impression: 1. Myocardial perfusion imaging study shows possible mild ischemia in the basal inferolateral wall but otherwise normal perfusion. 2. Gated LVEF appears normal visually. Calculated values are likely not accurate. Correlate with echocardiogram. EKG component of the test reported separately.
--- NOTE | ~2023-08-23 | XR_ITS ---
EXAMINATION: XR CHEST CLINICAL INFORMATION: Shortness of breath COMPARISON: Chest 08/23/2023 TECHNIQUE: AP upright portable view of the chest was obtained. 10:25 AM FINDINGS: The patient is status post median sternotomy. Lung volumes are low. Significant interval improvement in previously noted airspace disease involving both lungs. There is mild streaky opacity at the lung bases consistent with atelectasis and/or pneumonia. No interstitial pulmonary edema or pneumothorax. No pleural effusion. The cardiomediastinal silhouette is within normal limits. XR/XR chest 1V IMPRESSION: 1. Significant interval improvement in previously noted airspace disease involving both lungs. 2. Mild bibasilar atelectasis and/or pneumonia.
--- NOTE | ~2023-08-23 | XR_ITS ---
EXAMINATION: XR CHEST CLINICAL INFORMATION: Shortness of breath COMPARISON: 0 05/23 2022 and 09/06/2022 TECHNIQUE: Frontal view of the chest was obtained. FINDINGS: Lungs are hypoinflated and suboptimally evaluated. There is thickening of peribronchial interstitium. Patchy hazy opacity and/or airspace opacity of both lungs. Findings include airspace opacities with air bronchograms in left perihilar and left retrocardiac region. The right lateral costophrenic sulcus is blunted from small pleural effusion. Cardiac silhouette is normal in size. The sternotomy wires are intact. Vascular stents seen in medial right upper arm and left axillary region. Bones are chronically relatively sclerotic, likely renal osteodystrophy. Overall, findings seen in the chest on this current exam are similar compared to prior radiographs, including 05/23/2022. XR/XR chest 1V IMPRESSION: * Lungs are hypoinflated and suboptimally evaluated. * Interstitial and patchy pulmonary opacities are nonspecific but could represent noncardiogenic edema. A superimposed pneumonia would have to be excluded on the basis of clinical criteria. * Persistent small right pleural effusion. * Chronic renal osteodystrophy is suspected.
--- NOTE | 2023-08-23 06:38 | ECG_ITS ---
Test Reason : SOB Blood Pressure : / mmHG Vent. Rate : 089 BPM Atrial Rate : 089 BPM P-R Int : 156 ms QRS Dur : 068 ms QT Int : 348 ms P-R-T Axes : 054 -02 -38 degrees QTc Int : 423 ms Normal sinus rhythm Nonspecific ST and T wave abnormality Abnormal ECG When compared with ECG of 06-SEP-2022 02:07, T wave inversion no longer evident in Anterior leads Referred By: Sue Luevano Electronically Signed By:HÉCTOR ZUNIGA MD
--- NOTE | 2023-08-23 06:49 | ED.GENADULT ---
HPI - General Adult General Chief complaint: Upper Respiratory Symptoms Stated complaint: SOB, CHEST PAIN Time Seen by Provider: 08/23/23 06:46 Source: patient and EMS Mode of arrival: EMS Limitations: no limitations History of Present Illness HPI narrative: This is a 67-year-old male history of end-stage kidney disease (on HD MWF last session thursday) , CAD, anemia, acute hypoxic respiratory failure, pancytopenia, pulmonary edema, ischemic cardiomyopathy presenting to the emergency department for complaints of substernal chest pain, shortness of breath ongoing for the past 3 hours. Patient reports that this started suddenly, chest pain in the substernal region, nonradiating, describes it as constant, stabbing. Shortness of breath at rest and with exertion. Patient wears 3 L nasal cannula at baseline however was moved up to 4 L, according to EMS patient received nitroglycerin, this provided little relief to patient, and he has been saturating 95-97% EN route. He has aspirin allergy. Aspirin is not given. EMS also reported carbon dioxide levels in the facility were 11, however there unsure if this is a faulty read. Patient denies fevers, chills, recent sick contacts, cough, nausea, vomiting, abdominal pain, headache, vision changes, dizziness and weakness. Related Data Home Medications Medication Instructions Recorded Confirmed acetaminophen 325 mg tablet 650 mg PO Q6H PRN Pain (Scale 05/23/22 09/06/22 Score 4-6) atorvastatin 80 mg tablet 80 mg PO BEDTIME 05/23/22 09/06/22 bisacodyl 10 mg rectal suppository 10 mg TN DAILY PRN IF MOM 05/23/22 09/06/22 INEFFECTIVE FOR BM brimonidine 0.2 % eye drops 1 drp ophthalmic (eye) BID 05/23/22 09/06/22 carvedilol 25 mg tablet 25 mg PO BID 05/23/22 09/06/22 clonidine HCl 0.2 mg tablet 0.2 mg PO SuTuTh@0900 05/23/22 09/06/22 docusate sodium 100 mg capsule 100 mg PO BID 05/23/22 09/06/22 gabapentin 100 mg capsule 100 mg PO DAILY 05/23/22 09/06/22 isosorbide mononitrate 30 mg 1 tab PO DAILY 05/23/22 09/06/22 tablet,extended release 24 hr pantoprazole 40 mg tablet,delayed 40 mg PO BID 05/23/22 09/06/22 release sevelamer carbonate 800 mg tablet 800 mg PO TIDWM 05/23/22 09/06/22 vitamin B complex 1 tab PO DAILY 05/23/22 09/06/22 cholecalciferol (vitamin D3) 1,250 1,250 mcg PO Q28H 08/23/22 09/06/22 mcg (50,000 unit) capsule epoetin shayla 20,000 unit/mL 20,000 unit subcut MOWEFR 08/23/22 09/06/22 injection solution (Epogen) levothyroxine 200 mcg tablet 200 mcg PO DAILY@0600 08/23/22 09/06/22 nifedipine 60 mg tablet,extended 60 mg PO DAILY 08/23/22 09/06/22 release 24 hr Previous Rx's Medication Instructions Recorded sucralfate 1 gram tablet 1 g PO BIDAC #60 tabs 09/08/22 Allergies Allergy/AdvReac Type Severity Reaction Status Date / Time bee pollen [bee stings] Allergy Angioedema Verified 09/06/22 01:36 lisinopril Allergy Cough Verified 09/06/22 01:35 Review of Systems Review of Systems: Constitutional : No Weight loss, No Fever, No Chills, No Fatigue, No Malaise ENT/Mouth : No sore throat, No Rhinorrhea Eyes: No Eye Pain, No Swelling, No Redness Cardiovascular : + Chest Pain, + SOB, + Dyspnea on Exertion, No Orthopnea, No Edema, No Palpitations Respiratory : No Cough, No Sputum, No Wheezing Gastrointestinal : No Nausea, No Vomiting, No Diarrhea, No Constipation, No abdominal Pain, No Hematochezia, No Melena Genitourinary : No Dysuria, No Urinary Frequency, No Hematuria, Musculoskeletal : No joint pain, No Myalgias, No Joint Swelling Skin : No Skin Lesions, No rash Neuro : No Weakness, No Numbness, No Dizziness, No Headache Psych : No Anxiety/Panic, No Depression All other systems reviewed and are negative Yes all other systems are reviewed and are negative [facility] Past Medical History Attestation statement: The following information was validated with the patient. 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 Myocardial infarction involving left anterior descending (LAD) coronary artery Ischemic cardiomyopathy CKD (chronic kidney disease) requiring chronic dialysis Anemia Essential hypertension End stage chronic kidney disease Social History Household Members: None Household Members Other:: [facility] Housing: [facility] Housing Other:: [facility] Do you presently have visiting nurse or other home services: No Unable to assess alcohol history related to: Unable to respond Alcohol intake: former Patient Tobacco Use Status: Former Tobacco user Quit Date: 20 YEARS AGO Tobacco use type: Cigarette Years Smoked: 20 Smoked in Last 30 Days: No e-Cigarette/Vaping Use: Never Used Second Hand Smoke Exposure: No Use of substances other than those prescribed or required for medical reasons: Yes Substance Use Type: Marijuana Substance Use Frequency: Occasionally Advance Directives: Yes Advance Directives on File: Yes Advance Directives Date on File: 05/26/22 service: No Physical Exam ED Vital Signs: Vital Signs - 24 hr 08/23/23 06:45 08/23/23 06:50 08/23/23 06:53 Temperature Pulse Rate 88 90 Respiratory Rate 24 H 16 Blood Pressure Pulse Oximetry 96 93 Oxygen Delivery Method Nasal Cannula Nasal Cannula Oxygen Flow Rate 08/23/23 07:04 08/23/23 07:25 08/23/23 07:46 Temperature 98 F Pulse Rate 83 Respiratory Rate 27 H 27 H Blood Pressure 206/76 H 204/70 H Pulse Oximetry 96 Oxygen Delivery Method Nasal Cannula Oxygen Flow Rate 4 08/23/23 08:19 08/23/23 08:48 08/23/23 09:41 Temperature Pulse Rate 83 84 88 Respiratory Rate 20 28 H 38 H Blood Pressure 212/74 H 227/90 H 195/77 H Pulse Oximetry 95 92 96 Oxygen Delivery Method BiPAP BiPAP BiPAP Oxygen Flow Rate 08/23/23 09:47 08/23/23 10:05 08/23/23 10:12 Temperature Pulse Rate 85 85 86 Respiratory Rate 30 H Blood Pressure 219/87 H 183/71 H 183/71 H Pulse Oximetry 96 Oxygen Delivery Method BiPAP Oxygen Flow Rate 08/23/23 10:14 08/23/23 10:16 Temperature Pulse Rate 85 87 Respiratory Rate 28 H Blood Pressure 187/72 H 183/73 H Pulse Oximetry 97 Oxygen Delivery Method Nasal Cannula Oxygen Flow Rate 3 BMI result Body Mass Index 74.0 vss Appearance: Alert.? Oriented X3.? Mild acute distress.? Head: Normocephalic, atraumatic, no step-offs or deformities Eyes: Pupils equal, round and reactive to light.? Neck: Normal inspection.? Neck supple.? CVS: Normal heart rate and rhythm.? Pulses normal.? Respiratory: Mild respiratory distress.? Breath sounds diminished b/l.? Abdomen: Soft and nontender.? Skin: Skin warm and dry.? Normal skin color.? Normal skin turgor.? Extremities: No lower extremity edema.? No calf ttp. 5/5 strength to bilateral upper extremities b/l BKA Neuro: Oriented X 3.? No motor deficit.? No sensory deficit. CN 2-12 intact Course Reevaluation(s) Reevaluation #1: After receiving a treatment by Respiratory patient began to sound crackly at the bases. Will wait for BNP to determine whether not patient necessitates Lasix at this time. Time: 06:55 Reevaluation #2: Carbon monoxide level 5.3 Time: 07:30 Reevaluation #3: Pressure elevated 1 inch nitro paste ordered. Time: 07:39 Additional Reevaluation(s): 0807 patient's CBC with a macrocytic anemia, appears to be around his baseline. Not an acute finding. Chemistry with elevated BUN 33 creatinine 8.15, no other electrolyte abnormalities requiring intervention. BNP elevated at 1348. Chest x-ray with lungs that are hypoinflated, interstitial and patchy pulmonary opacities I suspect this is secondary to noncardiogenic edema I do not believe this is superimposed pneumonia, no productive cough, fevers or tachycardia. Patient is a hemodialysis patient and he scheduled to have hemodialysis tomorrow, would benefit patient if he had early due to him being in a status of fluid overload, hypertensive, on BiPAP. Will reach out to Nephrology. 0828 Patient's pressure consistently elevated, hydralazine ordered at this time for blood pressure control concerning for possible hypertensive emergency. 0900 ICU recommends high flow and admission to the floor no need for ICU at this time [address] Addison, patient will be taken to dialysis in a few hours . Patient is still having significant substernal chest pressure and patient is still significantly hypertensive therefore will add nitroglycerin due to symptomatic chest pain and hypertension. Will continue to monitor 2nd troponin pending and scheduled for 07 12 1014 Patients pressure improved nitro drip d/c, took him off cpap. Will put on high flow at this time and see if patient is appropriate for floor admission 1031 Plan hospital admission by Dr. Pitts --> HD nurse here and patient ready for dialysis Medications Administered Generic Name Dose Route Start Last Admin Trade Name Freq PRN Reason Stop Dose Admin Nitroglycerin/Dextrose 100 mg in 250 mls @ 0 mls/hr 08/23/23 09:45 08/23/23 10:14 Nitroglycerin/D5w IVCONT 0 mcg/min .Q0M VICTOR HUGO 0 mls/hr Titration Protocol Per Protocol Discontinued Medications Generic Name Dose Route Start Last Admin Trade Name Freq PRN Reason Stop Dose Admin Albuterol/Ipratropium 3 ml 08/23/23 06:50 08/23/23 07:54 Albuterol/Iprat 2.5/0.5mg 3 Ml Ampul.Neb INHALE 08/23/23 06:51 3 ml ONCE ONE Administration Fentanyl 25 mcg 08/23/23 09:19 08/23/23 09:41 Fentanyl Citrate/Pf 100 Mcg/2 Ml Vial IVPUSH 08/23/23 09:20 25 mcg ONCE ONE Administration Protocol Furosemide 40 mg 08/23/23 06:57 08/23/23 07:28 Furosemide 40 Mg/4 Ml Vial IVPUSH 08/23/23 06:58 40 mg ONCE ONE Administration Protocol Hydralazine HCl 10 mg 08/23/23 08:27 08/23/23 09:05 Hydralazine Hcl 20 Mg/Ml Vial IVPUSH 08/23/23 08:28 10 mg ONCE ONE Administration Protocol Nitroglycerin 1 inch 08/23/23 07:35 08/23/23 07:37 Nitroglycerin 2 % Oint 1 Gm Packet TRANSDERMA 08/23/23 07:36 1 inch ONCE ONE Administration Medical Decision Making Medical Decision Making [facility] Narrative: 0652 67 yo m presents w/ cp and sob X 3 hours PE w/diminished bs b/l. Mild acute distress History and physical exam concerning for CHF possible ACS versus viral illness vs PE vs angina vs cardiomyopathy. Unlikely dissection, ruptured aneurysm Plan at this time labs, EKG, imaging Differential Diagnosis Differential Diagnoses: The differential diagnosis associated with the presentation includes History and physical exam concerning for CHF possible ACS versus viral illness vs PE vs angina vs cardiomyopathy . Unlikely dissection, ruptured aneurysm Admission/Observation Consideration of admission/observation: Escalation of care including admission/observation considered likely Consult Healthcare Provider Management of the patient was discussed with: [employer] Operator (Nephrology) Lab Data MDM Lab Attestation statement: I reviewed the patient's lab results. 08/23/23 07:17 08/23/23 07:17 Labs: Lab Results 08/23/23 08/23/23 08/23/23 Range/Units 07:17 07:21 07:24 WBC 5.2 (4.8-10.8) X10*3/uL RBC 2.57 L (4.60-5.80) X10*6/uL Hgb 8.0 L (14.0-18.0) g/dl Hct 26.3 L (42.0-52.0) % MCV 102.3 H (80.0-98.0) fL MCH 31.1 (27.0-33.0) pg MCHC 30.4 L (31.0-36.0) g/dl RDW 20.4 H (11.0-16.0) % Plt Count 84 L (160-400) X10*3/uL MPV Not Reportable Immature Gran % (Auto) 0.8 H (0.0-0.4) % Neut % (Auto) 78.9 H (45-73) % Lymph % (Auto) 9.3 L (20-40) % [place] % (Auto) 8.5 (2-11) % Eos % (Auto) 2.1 (0-4) % Baso % (Auto) 0.4 (0-2) % Lymph # (Auto) 0.5 L (1.2-4.9) X10*3/uL [place] # (Auto) 0.4 (0.1-1.2) X10*3/uL Eos # (Auto) 0.1 (0.0-0.4) X10*3/uL Baso # (Auto) 0.0 (0.0-0.2) X10*3/uL Abs Immat Gran (auto) 0.04 H (0.00-0.03) X10*3/uL Absolute Neuts (auto) 4.1 (2.0-8.3) x10*3/uL Absolute Nucleated RBC 0.000 (0.0-0.012) X10*3/uL Nucleated RBC % (auto) 0.0 (0.0-0.2) /100WBC Smear Tech's Comments VERIFIED PT 14.3 H (11.1-13.3) SEC INR 1.2 H (0.9-1.1) VBG pH 7.44 H (7.32-7.43) VBG pCO2 47 mmHg VBG pO2 71 mmHg VBG HCO3 32 H (22-26) mmol/L VBG O2 Saturation 95.0 % VBG Base Excess 7.8 mmol/L Carboxyhemoglobin % 5.3 H* % Sodium 143 (135-145) mmol/L Potassium 4.6 D (3.3-5.1) mmol/L Chloride 104 (96-108) mmol/L Carbon Dioxide 27 (22-29) mmol/L Anion Gap 17 (12-20) BUN 33 H (9-16) mg/dL Creatinine 8.15 H* (0.5-1.4) mg/dL Estim Creat Clear Calc 2.6 Estimated GFR 7 Random Glucose 95 (60-115) mg/dL Lactic Acid 0.6 (0.5-2.0) mmol/L Calcium 9.2 (8.4-10.2) mg/dL Total Bilirubin 1.0 (0.0-1.0) mg/dL Direct Bilirubin 0.3 (0.0-0.5) mg/dL AST 24 (5-37) U/L ALT 7 (0-40) U/L Alkaline Phosphatase 80 (39-117) U/L Troponin I High Sens 23.4 (<3.5-35.0) ng/L B-Natriuretic Peptide 1348 H (<100) pg/mL Total Protein 7.4 (6.5-8.0) g/dL Albumin 3.9 (3.5-5.0) g/dL Lipase 20 (8-78) U/L Independent Interpretation I performed an independent interpretation of an: EKG (Ventricular rate of 89, TN normal, QRS normal, QT/QTC normal EKG with normal sinus rhythm no ST elevations or inversions concerning for acute ischemia) and Plain X-Ray (XR/XR chest 1V IMPRESSION: * Lungs are hypoinflated and suboptimally evaluated. * Interstitial and patchy pulmonary opacities are nonspecific but could represent noncardiogenic edema. A superimposed pneumonia would have to be excluded on the basis of clinical criteria. * Persistent small right p) Radiology Impression Discussion of test interpretation with radiology: I have reviewed the radiologist's reading. Independent Historian Clinical information obtained from an independent historian. History obtained from or confirmed by: EMS External Record Review External record reviewed: Inpatient record, Office record, Outpatient record, Prior outpatient labs, Prior outpatient radiology, Primary care record and Outside ED record Chronic Conditions Patient?s care impacted by: Other (CKD, HTN, cardiomyopathy ) Critical Care Time Critical Care Time Critical Care Time: Yes Total Critical Care Time: 65 Attestation: I attest to this time spent taking care of the patient, obtaining history, physical, reviewing labs, imaging, speaking to my attending, speaking to specialist. Discharge Plan Discharge Clinical Impression: Acute exacerbation of CHF (congestive heart failure), Hypertensive emergency, Acute hypoxemic respiratory failure Patient Disposition: Admitted As Inpatient
--- NOTE | 2023-08-23 06:54 | PC.NURSE ---
RESP AT BEDSIDE FOR BREATHING TX.
--- OUTSIDE RECORDS SUMMARY | 2023-08-23 07:13 | XMS_ITS | Continuity of Care Document ---
Author Name Unknown Organization [facility] ter Address [address] [place] [address]- Care Team Providers Care Ux Visual Designer Name Role Phone Rasta Guerrero MD Primary Care Physician Encounter [facility] [id number] Date(s): 05/08/23 - 06/13/[address] [address]- Attending Physician: John Rollins MD Admitting Physician: John Rollins MD Referring Physician: John Rollins MD Allergies, Adverse Reactions, Alerts Substance Reaction Severity Status lisinopril Active Immunizations Given and Recorded Vaccine Date Status Refusal Reason [id number] 12y+ bivalent booster vax 08/01/22 Recorded SARS-CoV-2 (COVID-19) mRNA-1273 vaccine 07/04/22 R ecorded SARS-CoV-2 (COVID-19) mRNA-1273 vaccine 11/13/20 R ecorded SARS-CoV-2 (COVID-19) mRNA-1273 vaccine 10/15/20 R ecorded SARS-CoV-2 mRNA ([id number]) vax 02/04/22 Recorded SARS-CoV-2 (COVID-19) mRNA BNT-162b2 vac 09/05/21 Recorded Medications acetaminophen 325 mg oral tablet 650 Unknown, Oral, 0 Refill(s), Take 650 mg by mouth, Refills 0, 05/08/22 20:00:00 EDT, Partial fill upon patient request if the prescription is for a schedule II opioid drug. Start Date: 05/08/22 Status: Ordered atorvastatin 80 mg oral tablet 1 tablet = 80 mg, By Mouth, Daily at bedtime, 5 Refills, Maintenance, 04/26/22 21:37:00 EDT, Tablet, ; Start Date: 04/26/22 Status: Ordered bisacodyl 5 mg oral delayed release tablet 5 Unknown, Oral, 0 Refill(s), Take 5 mg by mouth 1 (one) time each day if needed for constipation Do not crush, chew, or split., 0 Refills, 05/13/23 19:43:00 EDT, Partial fill upon patient request ifthe prescription is for a schedule II opioid drug. Start Date: 05/13/23 Status: Ordered brimonidine 0.2% ophthalmic solution 2 drops, Eyes, Both, 2 times a day, 0 Refills, Maintenance, 04/26/22 21:38:00 EDT, Solution, ; Start Date: 04/26/22 Status: Ordered carvedilol 25 mg oral tablet 25 mg, 1, tablet, By Mouth, 2 times a day, Refills 0, Maintenance, 05/27/22 13:57:00 EDT, ; Start Date: 05/27/22 Status: Ordered cholecalciferol 50,000 intl units oral capsule 1 capsule = 1,250 mcg, By Mouth, Every 30 days, on the , Maintenance, 06/04/22 18:32:00 EDT, Capsule Start Date: 06/04/22 Status: Ordered cloNIDine 0.2 mg oral tablet 0.2 mg, 1, tablet, By Mouth, 2 times a day, every Thursday, Thursday,and Thursday * hold for systolic blood pressure <110, Refills 0, Maintenance, 12/06/22 11:34:00 EST, Partial fill upon patient request if the prescription is for a schedule II opioid drug. Start Date: 12/06/22 Status: Ordered cloNIDine 0.2 mg oral tablet 0.2 mg, 1, tablet, By Mouth, 3 times a day, Every Thursday, Thursday, , and Thursday, # 60 tablet, Refills 0, Maintenance, 12/06/22 11:34:00 EST, Partial fill upon patient request if the prescription is for a schedule II opioid drug. Start Date: 12/06/22 Status: Ordered docusate sodium 100 mg oral capsule 100 mg, 1, capsule, By Mouth, 2 times a day, Refills 0, Maintenance, 04/26/22 21:39:00 EDT, ; Start Date: 04/26/22 Status: Ordered Epoetin Jose 1 mL = 20,000 units, IV Push Slowly, Every Thursday, Thursday and Thursday, (NOT ON CURRENT PAPER CHART), 0 Refills, Maintenance, 05/27/22 13:57:00 EDT, Injection, Partial fill upon patient req; Start Date: 05/27/22 Status: Ordered ergocalciferol 72683 iu oral capsule [address] Unknown, Oral, 0 Refill(s), Take 50,000 Units by mouth 1 (one) time per week, Refills 0, 05/13/23 19:43:00 EDT, Partial fill upon patient request if the prescription is for a schedule II opioiddrug. Start Date: 05/13/23 Status: Ordered ferrous sulfate 325 mg oral enteric coated tablet 325 mg, By Mouth, Daily, Refills 0, Maintenance, 11/05/22 10:13:00 EST, Partial fill upon patient request if the prescription is for a schedule II opioid drug. Start Date: 11/05/22 Status: Ordered gabapentin 100 mg oral capsule 200 mg, 2, capsule, By Mouth, Daily at bedtime, Refills 5, Maintenance, 04/26/22 21:39:00 EDT, ; Start Date: 04/26/22 Status: Ordered hydrALAZINE 25 mg oral tablet 25 mg, 1, tablet, By Mouth, 3 times a day, PRN, Give if BP > 140 inspite of all his other BP meds, # 100 tablet, Refills 0, Tot. Refills 0, Maintenance, Blood Pressure, 12/08/22 13:12:00 EDT, Do Not Route, Partial fill upon patient request if the pre... Start Date: 12/08/22 Stop Date: 01/07/23 Status: Ordered hydrALAZINE 50 mg oral tablet 90 tablet, 0 Refill(s), 0 Refills, 05/13/23 19:43:00 EDT, Partial fill upon patient request if the prescription is for a schedule II opioid drug. Start Date: 05/13/23 Status: Ordered Imdur ER = 60 mg, By Mouth, Daily, Hold for systolic BP<100 mm Hg, 0 Refills, Maintenance, 10/16/22 11:37:00 EST, ER Tablet, Partial fill upon patient request if the prescription is for a schedule II opioid drug. Start Date: 10/16/22 Status: Ordered levothyroxine 0.2 mg oral tablet 1 tablet = 200 mcg, By Mouth, Daily, # 30 tablet, 0 Refills, Maintenance, 05/14/23 12:29:00 EDT, Tablet, Partial fill upon patient request if the prescription is for a schedule II opioid drug. 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 Start Date: 01/06/23 Status: Ordered Narcan 4 mg/0.1 mL nasal spray = 4 mg, Naris, Left, Once, PRN as needed, Maintenance, 06/25/22 15:39:00 EDT, ; Start Date: 06/25/22 Status: Ordered NIFEdipine 60 mg oral tablet, extended release 60 mg, 1, tablet, By Mouth, 2 times a day, Refills 0, Maintenance, 05/14/23 12:30:00 EDT, Partial fill upon patient request if the prescription is for a schedule II opioid drug. Start Date: 05/14/23 Status: Ordered pantoprazole 40 mg oral delayed release tablet 1 tablet = 40 mg, By Mouth, 2 times a day, 0 Refills, Maintenance, 04/26/22 21:44:00 EDT, CR Tablet Start Date: 04/26/22 Status: Ordered Senna 8.6 mg oral tablet 8.6 mg, 1, tablet, By Mouth, 2 times a day, Refills 0, Maintenance, 01/06/23 9:27:00 EDT, Partial fill upon patient request if the prescription is for a schedule II opioid drug. Start Date: 01/06/23 Status: Ordered sucralfate 1 gm oral tablet 1 Gm, 1, tablet, By Mouth, 2 times a day, before meals, Maintenance, 10/14/22 13:57:00 EST, Partialfill upon patient request if the prescription is for a schedule II opioid drug. Start Date: 10/14/22 Status: Ordered Vitamin B Complex oral tablet, extended release 1 tablet, By Mouth, Daily, 0 Refills, Maintenance, 04/26/22 21:45:00 EDT, ; Start Date: 04/26/22 Status: Ordered Problem List Condition Confirmation Course Effective Dates Status H ealth Status Informant Anemia Confirmed Active Anemia of chronic disease Confirmed Active Hepatitis C, chronic Confirmed Active COPD (chronic obstructive pulmonary disease) Confirmed Active Chronic pain syndrome Confirmed Active Respiratory failure, chronic Confirmed Active Coronary artery disease Confirmed Active Diabetes mellitus Confirmed Active Hyperlipidemia Confirmed Active Hypertension Confirmed Active Hypothyroidism Confirmed Active Hypothyroidism Confirmed Active Peripheral vascular disease Confirmed Active Pulmonary edema Confirmed Active TACO (transfusion associated circulatory overload) 1 Confirmed 07/01/22 Active 1Patient at risk for Transfusion-Associated Circulatory Overload (TACO). The use of slow infusion rates, the administration of lino-transfusion diuretics where not clinically contraindicated, and/or the transfusion of split units of PRBCs should be considered in any future hemotherapy interventions.Consult Transfusion Medicine Services if any questions. Social History Social History Type Response Smoking Status Former smoker, quit more than 30 days ago; Other: Quit 20 years ago, smoked for 30 years 1.5 ppd; entered on: 06/30/22 Sex Patient Care team information Care Team Personnel Name: Capri Bush RN Position: [facility] RN Member Role: Primary Care Nurse Name: Linda La RN Position: [facility] Outreach Member Role: Primary Care Nurse Name: Arlen Hale LPN Position: [facility] RN Member Role: Primary Care Nurse Name: Chloe Dhaliwal RN Position: [facility] RN Member Role: Primary Care Nurse Name: Laureano Crawley RN Position: [facility] RN Member Role: Primary Care Nurse Name: Mary Ellen Mcdonald NP Position: [facility] Associate Professional Member Role: Lifetime Consulting Provider Address: Address: [address] [place] [address] [address] [facility] [address] Name: Barrie Lopez MD Position: [facility] Renal MD Member Role: Lifetime Consulting Physician Address: Address: [address] [place] [address] [address] [facility] [address] Name: Dread Trent RN Position: [facility] RN Member Role: Primary Care Nurse Name: Wojciech Arriaga RN Position: [facility] RN Member Role: Primary Care Nurse Name: Jodi Parr RN Position: [facility] RN Member Role: Primary Care Nurse Name: Nasreen Gamble RN Position: [facility] OB RN Member Role: Primary Care Nurse Name: Marvin Dooley DO Position: [facility] Renal MD Member Role: Lifetime Consulting Physician Address: Address: [address] [facility] [place] [address]- [place] Name: Fermín Dominguez III, RN Position: S RN Member Role: Primary Care Nurse Name: Rut Tucker Position: S RN Member Role: Primary Care Nurse Name: Ham Floyd RN Position: [facility] RN Member Role: Primary Care Nurse Name: Gutierrez Anderson MD Position: [facility] Renal MD Member Role: Lifetime Consulting Physician Address: Address: [address] [facility] [place] [place] [address]- [place] Name: Rasta Guerrero MD Position: [facility] Outreach Member Role: PCP Address: Address: [address] [facility] [place] [address]- [place] Name: Leeann Brown RN Position: [facility] RN Member Role: Primary Care Nurse Name: Pepe Brown RN Position: [facility] RN Member Role: Primary Care Nurse Name: Kassy Jo RN Position: [facility] SN RN Member Role: Primary Care Nurse Name: Patricia Chase RN Position: [facility] RN Member Role: Primary Care Nurse Name: Felisha Lilly Position: [facility] AMB [place] Member Role: Primary Care Nurse Name: Martha Lawson RN Position: [facility] RN Member Role: Primary Care Nurse Name: Geraldine Whyte RN Position: [facility] RN Member Role: Primary Care Nurse Name: Kyle Matthews RN Position: [facility] RN Member Role: Primary Care Nurse Name: Rasta Silverio RN Position: [facility] RN Member Role: Primary Care Nurse Name: Judi Phillips RN, I Position: [facility] RN Member Role: Primary Care Nurse Care Team Related Persons Name: DANNA ORR Address: [place] [address]
--- OUTSIDE RECORDS SUMMARY | 2023-08-23 07:13 | XMS_ITS | Continuity of Care Document ---
Author Name Unknown Organization [facility] Address [address] [place] [address]- Care Team Providers Care Clearance Center Manager Name Role Phone Rasta Guerrero MD Primary Care Physician [phone] Encounter [facility] Date(s): 02/19/23 - 05/17/23 [facility] Care [address] [place] [id number] Discharge Disposition: A-D/C Home Attending Physician: Aggie Cerrato MD Admitting Physician: Aggie Cerrato MD Referring Physician: Rasta Guerrero MD Allergies, Adverse Reactions, Alerts Substance Reaction Severity Status lisinopril Active Immunizations Given and Recorded Vaccine Date Status Refusal Reason [id number] 12y+ bivalent booster vax 08/01/22 Recorded SARS-CoV-2 (COVID-19) mRNA-1273 vaccine 07/04/22 R ecorded SARS-CoV-2 (COVID-19) mRNA-1273 vaccine 11/13/20 R ecorded SARS-CoV-2 (COVID-19) mRNA-1273 vaccine 10/15/20 R ecorded SARS-CoV-2 mRNA ([id number]) vax 02/04/22 Recorded SARS-CoV-2 (COVID-19) mRNA BNT-162b2 [...] req; Start Date: 05/27/22 Status: Ordered ergocalciferol 11102 iu oral capsule [address] Unknown, Oral, 0 Refill(s), Take 50,000 Units [...] interventions.Consult Transfusion Medicine Services if any questions. Vital Signs Most recent to oldest [Reference Range]: 1 Height 168 cm (03/17/23 3:43 PM) Oxygen Saturation [94-100 %] 100 % (03/17/23 3:43 PM) Pulse Rate [55-90 bpm] 66 bpm (03/17/23 3:43 PM) Blood Pressure [90-138/55-84 mm Hg] 160/ 59mm Hg *H* (03/17/23 3:43 PM) Liters per Minute 3 L/min (03/17/23 3:43 PM) Mode of Delivery (Oxygen) Nasal cannula (03/17/23 3:43 PM) Blood pressure sites Arm, left (03/17/23 3:43 PM) Temperature Route Oral (03/17/23 3:43 PM) Social History Social History Type Response Smoking Status Former smoker, quit more than 30 days ago; Other: Quit 20 years ago, smoked for 30 years 1.5 ppd; entered on: 06/30/22 Sex Patient Care team information Care Team Personnel Name: Capri Bush RN Position: [facility] RN Member Role: Primary Care Nurse Name: Linda La RN Position: S Outreach Member Role: Primary Care Nurse Name: Arlen Hale LPN Position: S RN Member Role: Primary Care Nurse Name: Chloe Dhaliwal RN Position: [facility] RN Member Role: Primary Care Nurse Name: Laureano Crawley RN Position: [facility] RN Member Role: Primary Care Nurse Name: Mary Ellen Mcdonald NP Position: [facility] Associate Professional Member Role: Lifetime Consulting Provider Address: Address: [address] [facility] [address] [facility] [place] [address]- Name: Barrie Lopez MD Position: [facility] Renal MD Member Role: Lifetime Consulting Physician Address: Address: [address] [facility] [address] [facility] [place] [address]- Name: Dread Trent RN Position: [facility] RN Member Role: Primary Care Nurse Name: Wojciech Arriaga RN Position: [facility] RN Member Role: Primary Care Nurse Name: Jodi Parr RN Position: [facility] RN Member Role: Primary Care Nurse Name: Nasreen Gamble RN Position: [facility] OB RN Member Role: Primary Care Nurse Name: Marvin Dooley DO Position: [facility] Renal MD Member Role: Lifetime Consulting Physician Address: Address: [address] [place] [address] [address] [facility] [place] [place] - Name: Fermín Dominguez III, RN Position: [facility] RN Member Role: Primary Care Nurse Name: Rut Tucker Position: [facility] RN Member Role: Primary Care Nurse Name: Ham Floyd RN Position: [facility] RN Member Role: Primary Care Nurse Name: Gutierrez Anderson MD Position: [facility] Renal MD Member Role: Lifetime Consulting Physician Address: Address: [address] [place] [address] [address] [facility] [place] [address]- [place] Name: Rasta Guerrero MD Position: [facility] Outreach Member Role: PCP Address: Address: [address] [facility] [place] [address]- [place] Name: Leeann Brown RN Position: [facility] RN Member Role: Primary Care Nurse Name: Pepe Brown RN Position: [facility] RN Member Role: Primary Care Nurse Name: Kassy Jo RN Position: [facility] SN RN Member Role: Primary Care Nurse Name: Patricia Chase RN Position: [facility] RN Member Role: Primary Care Nurse Name: Felisha Lilly Position: [facility] [place] Member Role: Primary Care Nurse Name: Martha Lawson RN Position: [facility] RN Member Role: Primary Care Nurse Name: Geraldine Whyte RN Position: [facility] RN Member Role: Primary Care Nurse Name: Kyle Matthews RN Position: [facility] RN Member Role: Primary Care Nurse Name: Rasta Silverio RN Position: [facility] RN Member Role: Primary Care Nurse Name: Judi Phillips RN, I Position: [facility] RN Member Role: Primary Care Nurse Name: Aggie Cerrato MD Position: [facility] Physician - Oncology Med Service: Hematology & Oncology Member Role: Admitting Physician Address: Address: [address] [place] [address] [place] [address]- Care Team Related Persons Name: DANNA ORR Address: [place] [address]
--- OUTSIDE RECORDS SUMMARY | 2023-08-23 07:13 | XMS_ITS | Continuity of Care Document ---
Author Name Unknown Organization [facility] Address [address] [place] [address]- Care Team Providers Care Air Marshal Name Role Phone Ashley Byrne MD Primary [facility] Phys[id number]): [facility] - 11/14/22 [facility] Care [address] [place] [id number] Attending Physician: Admtr, [id number] Admitting Physician: Admtr, [id number] Referring Physician: Admtr, [id number] Allergies, Adverse Reactions, Alerts Substance Reaction Severity Status lisinopril Active Immunizations Given and Recorded Vaccine Date Status Refusal Reason [id number] 12y+ bivalent booster vax 08/01/22 Recorded SARS-CoV-2 (COVID-19) mRNA-1273 vaccine 07/04/22 R ecorded SARS-CoV-2 (COVID-19) mRNA-1273 vaccine 11/13/20 R ecorded SARS-CoV-2 (COVID-19) mRNA-1273 vaccine 10/15/20 R ecorded SARS-CoV-2 mRNA ([id number]) vax 02/04/22 Recorded SARS-CoV-2 (COVID-19) mRNA BNT-162b2 vac 09/05/21 Recorded Medications acetaminophen 325 mg oral tablet 650 mg, 2, tablet, By Mouth, Every 6 hours, PRN, Maintenance, as needed for fever/pain, 05/09/22 18:36:00 EDT, Partial fill upon patient request i; Start Date: 05/09/22 Status: Ordered atorvastatin 80 mg oral tablet 1 tablet = 80 mg, By Mouth, Daily at bedtime, 5 Refills, Maintenance, 04/26/22 21:37:00 EDT, Tablet, ; Start Date: 04/26/22 Status: Ordered brimonidine 0.2% ophthalmic solution 2 [...] Capsule Start Date: 06/04/22 Status: Ordered cloNIDine 0.1 mg oral tablet 0.2 mg, 2, tablet, By Mouth, 3 times a day, Hold for systolic BP<100 mm Hg, Refills 0, Maintenance, 10/16/22 11:36:00 EST, Partial fill upon patient request if the prescription is for a schedule II opioid drug. Start Date: 10/16/22 Status: Ordered docusate sodium 100 mg oral capsule 100 mg, 1, capsule, By Mouth, 2 times a day, Refills 0, Maintenance, 04/26/22 21:39:00 EDT, ; Start Date: 04/26/22 Status: Ordered Dulcolax 10 mg rectal suppository 1 supp = 10 mg, Rectally, Daily, PRN as needed for constipation, Maintenance, 05/09/22 18:37:00 EDT, Suppository, ; Start Date: 05/09/22 Status: Ordered Epoetin Jose 1 mL = 20,000 units, IV Push Slowly, Every Thursday, Thursday and Thursday, (NOT ON CURRENT PAPER CHART), 0 Refills, Maintenance, 05/27/22 13:57:00 EDT, Injection, Partial fill upon patient req; Start Date: 05/27/22 Status: Ordered ferrous sulfate 325 mg oral enteric coated tablet 325 mg, By Mouth, 3 times a day, Refills 0, Maintenance, 11/05/22 10:13:00 EST, Partial fill upon patient request if the prescription is for a schedule II opioid drug. Start Date: 11/05/22 Status: Ordered gabapentin 100 mg oral capsule 100 mg, 1, capsule, By Mouth, Daily, Refills 5, Maintenance, 04/26/22 21:39:00 EDT, ; Start Date: 04/26/22 Status: Ordered Imdur ER = 60 mg, By Mouth, Daily, Hold for systolic BP<100 mm Hg, 0 Refills, Maintenance, 10/16/22 11:37:00 EST, ER Tablet, Partial fill upon patient request if the prescription is for a schedule II opioid drug. Start Date: 10/16/22 Status: Ordered levothyroxine 200 mcg (0.2 mg) oral capsule 1 capsule = 200 mcg, By Mouth, Daily, Maintenance, 06/25/22 15:29:00 EDT, Capsule, ; Start Date: 06/25/22 Status: Ordered Lidocaine Every Thursday, Thursday and Thursday, NOT ON PAPER CHART, 0 Refills, Maintenance, 04/26/22 21:42:00 EDT, ; Start Date: 04/26/22 Status: Ordered Narcan 4 mg/0.1 mL nasal spray = 4 mg, Naris, Left, Once, PRN as needed, Maintenance, 06/25/22 15:39:00 EDT, ; Start Date: 06/25/22 Status: Ordered Narcan Inj 1 mL, Intramuscular, Once, PRN as needed, Maintenance, 06/25/22 15:38:00 EDT, Injection, ; Start Date: 06/25/22 Status: Ordered NIFEdipine 60 mg oral tablet, extended release 60 mg, 1, tablet, By Mouth, 2 times a day, Hold for systolic BP<100 mm Hg, Refills 0, Maintenance, 10/16/22 11:37:00 EST, Partial fill upon patient request if the prescription is for a schedule IIopioid drug. Start Date: 10/16/22 Status: Ordered pantoprazole 40 mg oral delayed release tablet 1 tablet = 40 mg, By Mouth, 2 times a day, 0 Refills, Maintenance, 04/26/22 21:44:00 EDT, CR Tablet Start Date: 04/26/22 Status: Ordered sucralfate 1 gm oral tablet [...] Dates Status H ealth Status Informant Anemia of chronic disease Confirmed Active Hepatitis C, chronic Confirmed Active COPD (chronic obstructive pulmonary disease) Confirmed Active Respiratory failure, chronic Confirmed Active [...] Team Personnel Name: Capri Bush RN Position: [facility] RN Member Role: Primary Care Nurse Name: Arlen Hale LPN Position: [facility] RN Member Role: Primary Care Nurse Name: Chloe Dhaliwal RN Position: [facility] RN Member Role: Primary Care Nurse Name: Laureano Crawley RN Position: [facility] RN Member Role: Primary Care Nurse Name: Mary Ellen Mcdonald NP Position: [facility] Associate Professional Member Role: Lifetime Consulting Provider Address: Address: [address] [place], [place] [address] [place], [place] [address] Name: Dread Trent RN Position: S RN Member Role: Primary Care Nurse Name: Yudelka Hawkins RN Position: [facility] RN Member Role: Primary Care Nurse Name: Wojciech Arriaga RN Position: S RN Member Role: Primary Care Nurse Name: Jodi Parr RN Position: S RN Member Role: Primary Care Nurse Name: Nasreen Gamble RN Position: [facility] OB RN Member Role: Primary Care Nurse Name: Marvin Dooley DO Position: [facility] Renal MD Member Role: Lifetime Consulting Physician Address: Address: [address] [facility] [place] [place] [address]- [place] Name: Fermín Dominguez III, RN Position: S RN Member Role: Primary Care Nurse Name: Rut Tucker Position: S RN Member Role: Primary Care Nurse Name: Gutierrez Anderson MD Position: [facility] Renal MD Member Role: Lifetime Consulting Physician Address: Address: [address] [facility] [place] [address]- [place] Name: Leeann Brown RN Position: S RN Member Role: Primary Care Nurse Name: Pepe Brown RN Position: [facility] RN Member Role: Primary Care Nurse Name: Kassy Jo RN Position: [facility] RN Member Role: Primary Care Nurse Name: Patricia Chase RN Position: S RN Member Role: Primary Care Nurse Name: Felisha Simon Position: [facility] RN Member Role: Primary Care Nurse Name: Martha Lawson RN Position: [facility] RN Member Role: Primary Care Nurse Name: Stephen Hua RN Position: [facility] RN Member Role: Primary Care Nurse Name: Geraldine Whyte RN Position: [facility] RN Member Role: Primary Care Nurse Name: Ashley Byrne MD Position: [facility] Outreach Member Role: PCP Address: Address: [address] [place] [address] [place] [address]- [place] Name: Janna Valverde RN Position: [facility] RN Member Role: Primary Care Nurse Name: Kyle Matthews RN Position: S RN Member Role: Primary Care Nurse Name: Judi Phillips RN, I Position: S RN Member Role: Primary Care Nurse Care Team Related Persons Name: DANNA ORR Address: [place] [address]
--- OUTSIDE RECORDS SUMMARY | 2023-08-23 07:13 | XMS_ITS | Continuity of Care Document ---
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 Role Phone Not on Staff, PCP Primary Care Physician Unavail able Encounter [facility] Date(s): 01/06/23 - 01/07/[address] [id number] Discharge Disposition: A-Transfer SNF Attending Physician: Marina Chacon MD Admitting Physician: Veda ROJAS, Deirdre Graham Referring Physician: Not on Staff, Referring MD Allergies, Adverse Reactions, Alerts Substance Reaction Severity Status lisinopril Active Immunizations Given and Recorded Vaccine Date Status Refusal Reason [id number] 12y+ bivalent booster vax 08/01/22 Recorded SARS-CoV-2 (COVID-19) mRNA-1273 vaccine 07/04/22 R ecorded SARS-CoV-2 (COVID-19) mRNA-1273 vaccine 11/13/20 R ecorded SARS-CoV-2 (COVID-19) mRNA-1273 vaccine 10/15/20 R ecorded SARS-CoV-2 mRNA ([id number]) vax 02/04/22 Recorded SARS-CoV-2 (COVID-19) mRNA BNT-162b2 vac 09/05/21 Recorded Medications acetaminophen 650 mg rectal suppository 1 supp = 650 mg, Rectally, Every 6 hours, PRN for fever / general discomfort, # 12 supp, 0 Refills,Maintenance, 01/06/23 9:27:00 EDT, Suppository, Partial fill upon patient request if the prescription is for a schedule II opioid drug. Start Date: 01/06/23 Status: Ordered atorvastatin 80 mg oral tablet [...] EDT, ; Start Date: 05/27/22 Status: Ordered carvedilol 25 mg oral tablet 25 mg, Tablet, By Mouth, 01/07/23 9:00:00 EDT Start Date: 01/07/23 Stop Date: 01/07/23 Status: Completed cholecalciferol 50,000 intl units oral capsule 1 [...] ; Start Date: 04/26/22 Status: Ordered Epoetin Shayla 1 mL = 20,000 units, IV Push [...] Date: 12/08/22 Stop Date: 01/07/23 Status: Ordered Imdur ER = 60 mg, By Mouth, Daily, Hold for systolic BP<100 mm Hg, 0 Refills, Maintenance, 10/16/22 11:37:00 EST, ER Tablet, Partial fill upon patient request if the prescription is for a schedule II opioid drug. Start Date: 10/16/22 Status: Ordered levothyroxine 150 mcg (0.15 mg) oral tablet 1 tablet = 150 mcg, By Mouth, Daily, # 30 tablet, 0 Refills, Maintenance, 01/06/23 9:24:00 EDT, Tablet, Partial fill upon patient request if the prescription is for a schedule II opioid drug. Start Date: 01/06/23 Status: Ordered lidocaine 4% topical cream Topically, [...] release 60 mg, ER Tablet, By Mouth, 01/07/23 9:00:00 EDT Start Date: 01/07/23 Stop Date: 01/07/23 Status: Completed NIFEdipine 60 mg oral tablet, extended release [...] interventions.Consult Transfusion Medicine Services if any questions. Results Orders for Microbiology Reports Name Date Blood Culture 01/05/23 Blood Culture #2 01/05/23 Microbiology Reports TEST:Blood Culture, Second Order STATUS:Unauthenticated BODY SITE: SOURCE:Blood COLLECTED DATE/TIME:01/05/23 10:38 PM Blood Culture, Second Order SPECIMEN DESCRIPTION : BLOOD NO SITE SPECIAL REQUESTS : NONE CULTURE : NO GROWTH AFTER 24 HOURS REPORT STATUS : PRELIMINARY REPORT TEST:Blood Culture STATUS:Unauthenticated BODY SITE: SOURCE:Blood COLLECTED DATE/TIME:01/05/23 10:29 PM Blood Culture SPECIMEN DESCRIPTION : BLOOD NO SITE SPECIAL REQUESTS : NONE CULTURE : NO GROWTH AFTER 24 HOURS REPORT STATUS : PRELIMINARY REPORT Radiology Reports * Exam Date Time Procedure Performing Provider Status 01/06/23 12:36 AM Chest 2 Views Frontal and Lat Rut Ibarra; Auth (Verified) Notes: (Chest 2 Views Frontal and Lat) Reason For Exam: Shortness of Breath RESULT: Chest 2 Views Frontal and Lat Chest 2 Views Frontal and Lat Reason: Shortness of Breath; Clinical Question(s): CHF COMPARISON: Multiple priors, most recent 12/05/2022 FINDINGS: LINES AND TUBES: None. LUNGS AND PLEURA: Left greater than right bibasilar atelectasis. Unchanged chronic elevation of the right hemidiaphragm. Normal pulmonary vascularity. No pleural effusion. No pneumothorax. HEART, MEDIASTINUM AND JOSELYN: Heart is normal in size. Normal mediastinal and hilar contour. BONES AND SOFT TISSUES: No acute abnormality. Status post median sternotomy. Vascular stent visualized within the left axilla. IMPRESSION: No acute abnormality. No evidence of pulmonary edema. I have personally reviewed the images and I agree with this report. WSN: [id number] Ordering Physician: Natasha Villa Dictated By: Usha Nowak MD Dictated Date/Time: 01/06/23 8:16 am Reviewed By: Hayde Puentes MD Signed By: Hayde Puentes MD Signed Date/Time: 01/06/23 8:21 am Transcribed By: [email or web address] Transcribed Date/Time: 01/06/23 8:14 am Vital Signs Most recent to oldest [Reference Range]: 1 2 3 Height 167 cm (01/07/23 11:14 AM) 167 cm (01/07/23 5:31 AM) 167 cm (01/06/23 5:31 PM) Weight 56.7 kg (01/06/23:31 PM) Oxygen Saturation [94-100 %] 100 % (01/07/23 11:14 AM) 100 % (01/07/23:31 AM) 100 % (01/06/23 11:00 PM) Pulse Rate [55-90 bpm] 65 bpm (01/07/23:14 AM) 56 bpm (01/07/23 9:17 AM) 56 bpm (01/07/23:31 AM) Body Mass Index [18.5-24.99 kg/m2] 20.33 kg/m2 (01/06/23: PM) Blood Pressure [90-138/55-84 mm Hg] 98/51mm Hg (01/07/23 11:14 AM) 147/60mm Hg *H* (01/07/23 9:17 AM) 147/60mm Hg *H* (01/07/23 9:17 AM) Respiratory Rate [16-30 br/min] 18 br/min (01/07/23 11:14 AM) 18 br/min (01/07/23:31 AM) 20 br/min (01/06/23 11:00 PM) Temperature [96.8-100.4 DegF] 97.9 DegF (01/07/23 11:14 AM) 97.9 DegF (01/07/23:31 AM) 97.6 DegF (01/06/23 11:00 PM) Liters per Minute 2 L/min (01/07/23:31 AM) 2 L/min (01/06/23 11:00 PM) 1 L/min (01/06/23 8:13 AM) Mode of Delivery (Oxygen) Room air (01/07/23 11:14 AM) Room air (01/07/23:31 AM) Nasal cannula (01/06/23 11:00 PM) Blood pressure sites Leg, right (01/07/23 11:14 AM) Arm, left (01/07/23 5:31 AM) Arm, left (01/06/23 11:00 PM) Temperature Route Oral (01/07/23 11:14 AM) Oral (01/07/23 5:31 AM) Oral (01/06/23 11:00 PM) Dry Weight 56.7 kg (01/06/23 5:31 PM) Weight Obtained Via Bed scale (01/06/23 5:31 PM) Social History Social History Type Response Smoking Status Former smoker, quit more than 30 days ago; Other: Quit 20 years ago, smoked for 30 years 1.5 ppd; entered on: 06/30/22 Sex Admission evaluation note * Selam ROJAS, Zach Covington: PERFORM, MODIFY Event Display: Admission Note Authored Date: [id number] Patient: ??SARWAT SMALL ? Age:??67 Years?Sex:??Male?:??1955?? Chief Complaint/Reason for Consultation lightheaded, hypotensive History of Present Illness 67-year-old??-I[place] gentleman??with past medical history of??ESRD on hemodialysis,??coronary artery disease status post CABG,??peripheral vascular disease??status post??bilateral above-kneeamputation,??hypertension, hyperlipidemia, hypothyroidism, COPD on 2 L nasal,??diabetes mellitus, chronic anemia,??GAVE syndrome,??anemia??presented to [facility]??ER??with lightheadedness and??fatigue??and tiredness.?? The patient is being admitted to [facility] for further evaluation and treatment. Review of Systems Constitutional: No fever HEENT: No visual loss, blurred vision, double vision or yellow sclera. No runny nose or sore throat. Cardiovascular: No chest pain, palpitations or pedal edema. Respiratory: Shortness of breath. No cough or sputum production. Gastrointestinal: No nausea, vomiting or diarrhea. No abdominal pain.?? Neurologic: No headache, dizziness, unilateral weakness, numbness or tingling in the extremities. Objective ? Vital Signs?? Temperature: 97.1 DegF (01/06/23 08:13:00) Temperature Route: Oral (01/06/23 08:13:00) Pulse Rate: 64 bpm (01/06/23 08:13:00) Respiratory Rate: 18 br/min (01/06/23 08:13:00) Systolic Blood Pressure:??143 mm Hg??High (01/06/23 08:13:00) Diastolic Blood Pressure: 65 mm Hg (01/06/23 08:13:00) Blood pressure sites: Arm, left (01/06/23 08:13:00) Mean Arterial Pressure: 91 mm Hg (01/06/23 08:13:00) Pulse Pressure: 78 mm Hg (01/06/23 08:13:00) Oxygen Saturation: 99 % (01/06/23 08:13:00) Liters per Minute: 1 L/min (01/06/23 08:13:00) Mode of Delivery (Oxygen): Nasal cannula (01/06/23 08:13:00) Early Warning Score: 8 (01/06/23 08:15:29) ? Intake/Output? No Data Available ?? Precautions No Precautions documented.? Mobility & Ambulation Level Mobility & Ambulation Level Ambulatory devices needed: Wheelchair (01/05/23) ? Physical Exam General: Alert Mental Status: Oriented to person, place and time. Head: Normocephalic. Neck: Supple Respiratory: Clear to auscultation and percussion. No wheezing, rales or rhonchi. Cardiovascular: Heart sounds normal. No thrills. Regular rate and rhythm, no murmurs, rubs or gallops. Gastrointestinal: Abdomen soft, non-tender, non-distended. Normal bowel sounds.?? Neurologic: Cranial nerves II-XII grossly intact. No focal neurological deficits. Sensation intact bilaterally. Skin: No rashes or lesions.?? Musculoskeletal: No cyanosis or clubbing. Assessment/Plan Diagnoses ?? No diagnosis data available. ?? Assessment:??67-year-old -[place] gentleman with past medical history of ESRD on hemodialysis, coronary artery disease status post CABG, peripheral vascular disease status post bilateral above-knee amputation, hypertension, hyperlipidemia, hypothyroidism, COPD on 2 L nasal, diabetes mellitus, chronic anemia, GAVE syndrome, anemia presented to [facility] ER with lightheadedness and fatigue and tiredness. The patient is being admitted to [facility] for further evaluation andtreatment. ? 1.?Lightheadedness/tiredness and fatigue: Likely secondary to??anemia??and hemodialysis The patient??has ESRD??and is on hemodialysis 3 times a week Patient states that he is slightly better??now??than when he was in the ER We will monitor??volume status ? 2.?ESRD on hemodialysis: Patient follows up with??kidney care??team I have consulted??nephrology??team for further??hemodialysis Potassium level is 3.6 ? 3.?Coronary artery disease??status post CABG: Patient denies??having??chest pain We will continue with atorvastatin ? 4.?Peripheral??vascular disease: Status post??bilateral??lower extremity amputations We will continue with??atorvastatin ? 5.?Hypothyroidism: We will continue with levothyroxine ? 6.?GERD:??We will continue with pantoprazole DVT prophylaxis: Subcu??heparin.??Hemoglobin 8.3 CODE STATUS: Full code ? Discharge Planning:? Histories Allergies Allergies ?(Active and Proposed Allergies Only) lisinopril? (Severity: Unknown severity, Onset: Unknown) ? Past Medical History/Problem List Active Problems??(16) Anemia of chronic disease Chronic pain syndrome COPD (chronic obstructive pulmonary disease) Coronary artery disease Diabetes mellitus ESRD on dialysis Gastritis Hepatitis C, chronic Hyperlipidemia Hypertension Hypothyroidism Hypothyroidism Peripheral vascular disease Pulmonary edema Respiratory failure, chronic TACO (transfusion associated circulatory overload) ? Past Surgical History Above knee amputation Right Upper Extremity AV Fistula ? Social History Alcohol Details:??Use: Never. Substance Abuse Details:??Use: Never. Tobacco Details:??Use: Former smoker, quit more than 30 days ago. ??Other: Quit 20 years ago, smoked for 30years 1.5 ppd. ? Psychosocial History ? Family History Mother: Cancer Father: Diabetes mellitus; Heart attack; Heart disease; Stroke ? Medications Home Medications Acetaminophen (acetaminophen 650 mg rectal suppository)?1?suppository(ies)?650?Milligram?Rectally?Every 6 hours?as needed?for fever / general discomfort Atorvastatin (atorvastatin 80 mg oral tablet)?1?tab(s)?80?Milligram?By Mouth?Daily at bedtime Brimonidine Ophthalmic (brimonidine 0.2% ophthalmic solution)?2?Drops?Eyes, Both?2 times a day Carvedilol (carvedilol 25 mg oral tablet)?25?Milligram?1?tablet?By Mouth?2 times a day Cholecalciferol (cholecalciferol 50,000 intl units oral capsule)?1?capsule?1,250?Microgram?By Mouth?Every 30 days?on the Clonidine (cloNIDine 0.2 mg oral tablet)?0.2?Milligram?1?tablet?By Mouth?2 times a day?every Thursday, Thursday,and Thursday * hold for systolic blood pressure <110 Clonidine (cloNIDine 0.2 mg oral tablet)?0.2?Milligram?1?tablet?By Mouth?3 times a day?Every Thursday, Thursday, , and Thursday Docusate (docusate sodium 100 mg oral capsule)?100?Milligram?1?capsule?By Mouth?2times a day Epoetin Shayla?1?Milliliter?20,000?unit(s)?IV Push Slowly?Every Thursday, Thursday and Thursday?(NOT ON CURRENT PAPER CHART) Ferrous Sulfate (ferrous sulfate 325 mg oral enteric coated tablet)?325?Milligram?By Mouth?3 times a day Gabapentin (gabapentin 100 mg oral capsule)?200?Milligram?2?capsule?By Mouth?Daily at bedtime hydrALAZINE (hydrALAZINE 25 mg oral tablet)?25?Milligram?1?tablet?By Mouth?3 times a day?as needed?for 30?Days?Give if BP > 140 inspite of all his other BP ??meds?Blood Pressure Isosorbide Mononitrate (Imdur ER)?60?Milligram?By Mouth?Daily?Hold for systolic BP<100 mm Hg Levothyroxine (levothyroxine 150 mcg (0.15 mg) oral tablet)?1?tab(s)?150?Microgram?By Mouth?Daily Lidocaine Topical (lidocaine 4% topical cream)?Topically?Every Thursday, Thursday and Thursday?Aplly to fistula prior to dialysis Multivitamin (Vitamin B Complex oral tablet, extended release)?1?tab(s)?By Mouth?Daily nalOXONE (Narcan 4 mg/0.1 mL nasal spray)?4?Milligram?Naris, Left?Once?as needed?as needed NIFEdipine (NIFEdipine 60 mg oral tablet, extended release)?60?Milligram?1?tablet?ByMouth?2 times a day?Hold for systolic BP<100 mm Hg Pantoprazole (pantoprazole 40 mg oral delayed release tablet)?1?tab(s)?40?Milligram?By Mouth?2 times a day Senna (Senna 8.6 mg oral tablet)?8.6?Milligram?1?tab(s)?By Mouth?2 times a day Sucralfate (sucralfate 1 gm oral tablet)?1?gram?1?tablet?By Mouth?2 times a day?before meals ? Inpatient Medications Medications (23) Active SCHEDULED: (17) Atorvastatin 80 mg Tablet (atorvastatin 80 mg oral tablet) ??80 mg, By Mouth, Daily at bedtime Brimonidine 0.2% Ophthalmic Solution (brimonidine 0.2% ophthalmic solution) ??0.4 % 2 drops, Eyes, Both, 2 times a day Carvedilol 25 mg Tablet (carvedilol 25 mg oral tablet) ??25 mg, By Mouth, 2 times a day Clonidine 0.1 mg Tablet (cloNIDine 0.1 mg oral tablet) ??0.2 mg, By Mouth, 2 times a day Clonidine 0.1 mg Tablet (cloNIDine 0.1 mg oral tablet) ??0.2 mg, By Mouth, Every Thursday, and Thursday Clonidine 0.1 mg Tablet (cloNIDine 0.1 mg oral tablet) ??0.2 mg, By Mouth, Every Thursday Ferrous Sulfate 325 mg EC Tablet (ferrous sulfate 325 mg oral enteric coated tablet) ??325 mg, By Mouth, 3 times a day Gabapentin 100 mg Capsule (gabapentin 100 mg oral capsule) ??200 mg, By Mouth, Daily at bedtime Insulin Lispro 100 units/mL Inj (3mL) (Insulin LISPRO Sliding Scale) ??2-10 units, Subcutaneous Injection, 3 times a day before meals Isosorbide Mononitrate 30 mg ER Tablet (isosorbide mononitrate 30 mg oral tablet, extended release)??60 mg, By Mouth, Daily Levothyroxine 75 mcg Tablet (levothyroxine 0.1 mg oral tablet) ??150 mcg, By Mouth, Daily Multivitamin Tablet ??1 tablet, By Mouth, Daily NaCl 0.9% Flush 3ml (NaCL 0.9% Flush) ??3 mL, IV Push, Every 8 hours NIFEdipine 60 mg ER Tablet (NIFEdipine 60 mg oral tablet, extended release) ??60 mg, By Mouth, 2 times a day Pantoprazole 40 mg EC Tablet (pantoprazole 40 mg oral delayed release tablet) ??40 mg, By Mouth, 2 times a day Senna Tablet (Senna 8.6 mg oral tablet) ??8.6 mg 1 tablet, By Mouth, 2 times a day Sucralfate 1 Gm Tablet (sucralfate 1 gm oral tablet) ??1 Gm, By Mouth, 2 times a day CONTINUOUS: (0) PRN: (6) Acetaminophen 325 mg Tablet (Acetaminophen Tablet) ??650 mg, By Mouth, Every 4 hours hydrALAZINE 25 mg Tablet (hydrALAZINE 25 mg oral tablet) ??25 mg, By Mouth, 3 times a day Melatonin 3 mg Tablet (Melatonin Tablet) ??3 mg, By Mouth, Daily at bedtime NaCl 0.9% Flush 3ml (NaCL 0.9% Flush) ??3 mL, IV Push, Every 8 hours OxyCODONE 5 mg IR Tablet (oxyCODONE 5 mg oral tablet) ??2.5 mg, By Mouth, Every 6 hours Senna 8.6 mg / Docusate 50 mg tablet (Docusate/Senna Tablet) ??1 tablet, By Mouth, 2 times a day ? Results Recent Labs BLOOD BANK Blood Type O Positive ()?? 01/05/2023 22:14 Antibody Screen Positive ()?? 01/05/2023 22:14 ?? BLOOD COUNT & DIFF WBC 3.6 k/mm3 (Low)?? 01/05/2023 22:29 RBC 2.60 m/mm3 (Low)?? 01/05/2023 22:29 Hgb 8.3 Gm/dL (Low)?? 01/05/2023 22:29 Hct 26.0 % (Low)?? 01/05/2023 22:29 MCV 100.0 femtoliters (High)?? 01/05/2023 22:29 MCH 31.9 pg ()?? 01/05/2023 22:29 MCHC 31.9 g/dL (Low)?? 01/05/2023 22:29 Platelet Count 70 k/mm3 (Low)?? 01/05/2023 22:29 RDW-SD 72.3 femtoliters (High)?? 01/05/2023 22:29 MPV NOT MEASURED femtoliters ()?? 01/05/2023 22:29 Nucleated RBC (Automated) 0.0 #/100 WBC'S ()?? 01/05/2023 22:29 Abs. NRBC 0.0 k/mm3 ()?? 01/05/2023 22:29 Abs. Neut 2.5 k/mm3 ()?? 01/05/2023 22:29 Abs. Lymph 0.6 k/mm3 (Low)?? 01/05/2023 22:29 Abs. [place] 0.4 k/mm3 ()?? 01/05/2023 22:29 Abs. Eo 0.1 k/mm3 ()?? 01/05/2023 22:29 Abs. Baso 0.0 k/mm3 ()?? 01/05/2023 22:29 Neut % 69.6 % ()?? 01/05/2023 22:29 Lymph % 16.7 % ()?? 01/05/2023 22:29 [place] % 10.3 % ()?? 01/05/2023 22:29 Eos % 2.8 % ()?? 01/05/2023 22:29 Baso % 0.3 % ()?? 01/05/2023 22:29 Hemoglobin (POC) POC Cartridge 9.5 Gm/dL (Low)?? 01/06/2023 00:01 Hematocrit (POC) POC Cartridge 28 % (Low)?? 01/06/2023 00:01 Imm Gran 0.3 % ()?? 01/05/2023 22:29 Abs. Imm Gran 0.0 k/mm3 ()?? 01/05/2023 22:29 ?? BLOOD GAS pH Venous (POC) POC Cartridge 7.46 (High)?? 01/06/2023 00:01 pCO2 Venous (POC) POC Cartridge 45.1 mm Hg ()?? 01/06/2023 00:01 pO2 Venous (POC) POC Cartridge 97 mm Hg (High)?? 01/06/2023 00:01 Est Bicarbonate (POC) POC Cartridge 32.2 mmol/L (High)?? 01/06/2023 00:01 % O2 Sat Venous (POC) POC Cartridge 98 ()?? 01/06/2023 00:01 Base Excess (POC) POC Cartridge 8 ()?? 01/06/2023 00:01 Specimen Type - Blood Gas VENOUS ()?? 01/06/2023 00:01 ?? CARDIAC Nt-Probnp 24592 pg/mL (High)?? 01/05/2023 22:30 High Sensitivity Troponin (HSTnT) 89 ng/L (Critical)?? 01/06/2023 03:05 ?? CHEM GENERAL Sodium 142 mmol/L ()?? 01/05/2023 22:30 Potassium 3.6 mmol/L ()?? 01/05/2023 22:30 Chloride 100 mmol/L ()?? 01/05/2023 22:30 Bicarbonate Level 29 mmol/L ()?? 01/05/2023 22:30 Anion Gap 13 ()?? 01/05/2023 22:30 Sodium (POC) POC Cartridge 139 mmol/L ()?? 01/06/2023 00:01 Potassium (POC) POC Cartridge 4.1 mmol/L ()?? 01/06/2023 00:01 Glucose Level 110 mg/dL (High)?? 01/05/2023 22:30 Glucose (POC) POC Cartridge 107 (High)?? 01/06/2023 00:01 Glucose, POC 84 mg/dL ()?? 01/06/2023 08:09 BUN 20 mg/dL ()?? 01/05/2023 22:30 Creatinine-Blood 4.4 mg/dL (High)?? 01/05/2023 22:30 Estimated GFR Creatinine 14 ML/MIN/1.73 M2 ()?? 01/05/2023 22:30 Calcium 8.8 mg/dL ()?? 01/05/2023 22:30 Ionized Calcium (POC) POC Cartridge 1.03 mmol/L (Low)?? 01/06/2023 00:01 Protein, Total 6.8 Gm/dL ()?? 01/05/2023 22:30 Albumin 4.1 Gm/dL ()?? 01/05/2023 22:30 AG Ratio 1.5 ()?? 01/05/2023 22:30 Alkaline Phosphatase 130 units/L (High)?? 01/05/2023 22:30 Lipase 35 units/L ()?? 01/05/2023 22:30 AST (SGOT) 19 units/L ()?? 01/05/2023 22:30 ALT (SGPT) 8 units/L ()?? 01/05/2023 22:30 Bilirubin, Total 0.4 mg/dL ()?? 01/05/2023 22:30 ?? COAG INR 1.2 (High)?? 01/05/2023 22:29 Protime (PT) 12.9 seconds (High)?? 01/05/2023 22:29 APTT 30.8 seconds ()?? 01/05/2023 22:29 ?? ENDOCRINE/TUMOR MARKER TSH 7.46 uIU/mL (High)?? 01/05/2023 22:30 Free T4 0.97 ng/dL ()?? 01/05/2023 22:30 ?? VIROLOGY COVID-19 by RT-PCR NEGATIVE ()?? 01/05/2023 23:10 ? Note * Event Display: Cardiac Rhythm Strips Authored Date: * Génesis Jernigan: PERFORM Event Display: Discharge/Transfer Note Hospital Authored Date: [id number] Nursing Discharge Note Entered On: 01/07/2023 15:16 EDT Performed On: 01/07/2023 15:16 EDT by Génesis Jernigan Nursing Discharge Note 2 Discharge Time : 01/07/2023 15:16 EDT Discharge Level of Care at Discharge : assisted facility Discharge Nursing Homes/Rehab Facilities : [facility] [phone] Patient Left Unit Via : Ambulance Patient Accompanied Off Unit with : Ambulance/Chair Van Personnel Handover Given to Transport Personnel : Yes DC Instructions Provided & Signed by Pt : No Patient Understands D/C Instructions : No Verbalization of Discharge Plan Comments : discharged to SNF Patient Instructions Discharge Signed : Yes Did Pt have Specialty Bed or Wound Vac : No Génesis Jernigan - 01/07/2023 15:16 EDT * Kelly ROJAS, Griffin Kim: PERFORM Event Display: Discharge/Transfer Note Hospital Authored Date: Patient: ??SARWAT SMALL ? Age:??67 Years?Sex:??Male?:??1955?? Patient Information Discharge Location: S2 Primary Care Physician: Not on Staff, PCP Admit Date/Time: 01/06/23 05:00 Discharge Date: 01/07/2023 Discharge Disposition Discharge Disposition: Nursing Home Facility/Rehab Discharge Diagnosis Anemia (D64.9) Chest pain (R07.9) Fatigue (R53.83) COPD (chronic obstructive pulmonary disease) Coronary artery disease ESRD on dialysis Hyperlipidemia Hypothyroidism Peripheral vascular disease Respiratory failure, chronic ?? _ Discharge Medications Acetaminophen (acetaminophen 650 mg rectal suppository)?1?suppository(ies)?650?Milligram?Rectally?Every 6 hours?as needed?for fever / general discomfort Atorvastatin (atorvastatin 80 mg oral tablet)?1?tab(s)?80?Milligram?By Mouth?Daily at bedtime Brimonidine Ophthalmic (brimonidine 0.2% ophthalmic solution)?2?Drops?Eyes, Both?2 times a day Carvedilol (carvedilol 25 mg oral tablet)?25?Milligram?1?tablet?By Mouth?2 times a day Cholecalciferol (cholecalciferol 50,000 intl units oral capsule)?1?capsule?1,250?Microgram?By Mouth?Every 30 days?on the Clonidine (cloNIDine 0.2 mg oral tablet)?0.2?Milligram?1?tablet?By Mouth?2 times a day?every Thursday, Thursday,and Thursday * hold for systolic blood pressure <110 Clonidine (cloNIDine 0.2 mg oral tablet)?0.2?Milligram?1?tablet?By Mouth?3 times a day?Every Thursday, Thursday, , and Thursday Docusate (docusate sodium 100 mg oral capsule)?100?Milligram?1?capsule?By Mouth?2times a day Epoetin Shayla?1?Milliliter?20,000?unit(s)?IV Push Slowly?Every Thursday, Thursday and Thursday?(NOT ON CURRENT PAPER CHART) Ferrous Sulfate (ferrous sulfate 325 mg oral enteric coated tablet)?325?Milligram?By Mouth?3 times a day Gabapentin (gabapentin 100 mg oral capsule)?200?Milligram?2?capsule?By Mouth?Daily at bedtime hydrALAZINE (hydrALAZINE 25 mg oral tablet)?25?Milligram?1?tablet?By Mouth?3 times a day?as needed?for 30?Days?Give if BP > 140 inspite of all his other BP ??meds?Blood Pressure Isosorbide Mononitrate (Imdur ER)?60?Milligram?By Mouth?Daily?Hold for systolic BP<100 mm Hg Levothyroxine (levothyroxine 150 mcg (0.15 mg) oral tablet)?1?tab(s)?150?Microgram?By Mouth?Daily Lidocaine Topical (lidocaine 4% topical cream)?Topically?Every Thursday, Thursday and Thursday?Aplly to fistula prior to dialysis Multivitamin (Vitamin B Complex oral tablet, extended release)?1?tab(s)?By Mouth?Daily nalOXONE (Narcan 4 mg/0.1 mL nasal spray)?4?Milligram?Naris, Left?Once?as needed?as needed NIFEdipine (NIFEdipine 60 mg oral tablet, extended release)?60?Milligram?1?tablet?ByMouth?2 times a day?Hold for systolic BP<100 mm Hg Pantoprazole (pantoprazole 40 mg oral delayed release tablet)?1?tab(s)?40?Milligram?By Mouth?2 times a day Senna (Senna 8.6 mg oral tablet)?8.6?Milligram?1?tab(s)?By Mouth?2 times a day Sucralfate (sucralfate 1 gm oral tablet)?1?gram?1?tablet?By Mouth?2 times a day?before meals ? Medications Started None Medications Discontinued None Doses Changed None Allergies Allergies ?(Active and Proposed Allergies Only) lisinopril? (Severity: Unknown severity, Onset: Unknown) ? PCP Follow-Up/Heads-Up - Please follow-up for further??consideration of ischemic work-up -Please follow-up for further consideration of??colonoscopy -Consider work-up of??other causes of anemia Hospital Course 67-year-old gentleman with past medical history of ESRD on hemodialysis, coronary artery disease status post CABG, peripheral vascular disease status post bilateral above-knee amputation, hypertension, hyperlipidemia, hypothyroidism, COPD on 2 L nasal, diabetes mellitus, chronic anemia, GAVE syndrome, anemia presented with complaints of acute onset lightheadedness, fatigue, mild hypotension, chest pressure and mild shortness of breath??5 hours??after finishing his dialysis session possibly in the setting??of??passing dark stool and noticing blood in stool for the last week. Patient states that he went to dialysis in the morning, and believes they removed 2 L, but it may have been more. Doesthat state he sometimes gets fatigued after dialysis. A few hours later he had abrupt onset lightheadedness, fatigue, mild hypotension, chest pressure and mild shortness of breath and was concerned he was having an GA, or that he made need a blood transfusion. Per EMS patient was noted to be hypoten sive to 90/60. On arrival to ED, patient's vitals were stable and he received IV pantoprazole for concern of upper GI bleed. Labs notable for a pancytopenia (chronic), and hemoglobin of 8.3 (above patients baseline), INR 1.2, PT 12.9, creatinine 4.4 (baseline), pro BNP 24,887 (down from 70,000 lastadmission), troponin of 105 that down trended to 89, and TSH of 7.46 with a free T4 of 0.97. Patient had 2 EKGs within the ED that were unchanged from prior EKGs, and an unremarkable CXR. Patient wasadmitted due to concern for symptomatic anemia, upper GI bleed, and presyncope/syncopal work-up. OnTuesday patient received dialysis and 1 L was removed. Today, patient feels well. Hemoglobin uptrended to 9.6, this is above his baseline. Patient recently had endoscopy, colonoscopy in October. Patient declining DELMIS or colonoscopy prep. No indications for acute bleeding at this time. Patients EKGwas unchanged and troponins down trending, had recent cardiac catheterization, unable to place on heparin due to high risk of bleed, therefore low concern of ACS, no further workup indicated at this t parvez. Low concern for SBP given non tender abdomen, no fevers or leukocytosis. Renal have been following the patient,??they believe it is safe to??discharge with dialysis Thursday. Patient feeling improved and ready for discharge.? Concern for GI bleed Hx STARLA Presented with fatigue and lightheadedness. Reports history melena and BRBPR. He was also found to be hypotensive 90/60 by EMS. His Hb on presentation was 8.3, which was slightly higher than his previous reading of 7.9 a few months ago. Does not seem to be on EPO. EGD revealed erosions in stomach with no active ulcers/bleeds in Nov 20, colonoscopy prep was poor. ??Hemoglobin increased to 9.6, above patient's baseline ?? Recommendations -Continue protonix, sucralfate -Follow up PCP ?? ESRD on hemodialysis MWF Received hemodialysis on Thursday, one liter removed ?? Recommendations -Outpatient hemodialysis Thursday? Coronary artery disease status post CABG Elevated troponins Elevated Pro BNP Endorsed CP and SOB to providers in ED. These symptoms resolved shortly after. Initial EKG unchanged, Troponins initially 111 at ED, but trended down. Pro BNP was 28k, suspecting high level in setting of dialysis and CKD. Seems euvolemic on exam. CXR no??pulm edema Cath jun 19: Moderate diffuse [place] CAD, PANIAGUA-LAD- patent, SVG-RPDA patent, SVG-Ramus,OM1 patent (Y-graft) Suspecting elevated troponins and BNP in setting of CKD, given his previous troponin of 102 is similar to the initial troponin of 105, I suspect that this is his baseline.??This might represent demand ischemia from the ongoing anemia and aggressive pulling from dialysis. I do not believe an ischemic work up is necessary at this point. ?? Recommendations Outpatient FU ? Chronic medical Conditions Pancytopenia due to unclear etiology: f/u outpatient heme/onc Peripheral vascular disease: Not on antiplatelets or anticoagulants due to high risk of GI bleeding Hypertension: Continue Coreg 25 twice daily, isosorbide 60 mg daily, nifedipine 60 mg extended release, continue clonidine home regimen COPD: Continue 2L home O2 Chronic pain syndrome: Continue pain management (gabapentin + as needed oxycodone ) as being done in the outpatient Hyperlipidemia:Continue atorvastatin Hypothyroidism: Continue levothyroxine 200 mcg daily chronic hypoxic respiratory failure ? Objective Assessment and Plan Discharge Planning:? Vital Signs?? Temperature: 97.9 DegF (01/07/23 11:14:00) Temperature Route: Oral (01/07/23 11:14:00) Pulse Rate: 65 bpm (01/07/23 11:14:00) Respiratory Rate: 18 br/min (01/07/23 11:14:00) Systolic Blood Pressure: 98 mm Hg (01/07/23 11:14:00) Diastolic Blood Pressure:??51 mm Hg??Low (01/07/23 11:14:00) Blood pressure sites: Leg, right (01/07/23 11:14:00) Mean Arterial Pressure: 67 mm Hg (01/07/23 11:14:00) Pulse Pressure: 47 mm Hg (01/07/23 11:14:00) Oxygen Saturation: 100 % (01/07/23 11:14:00) Liters per Minute: 2 L/min (01/07/23 05:31:00) Mode of Delivery (Oxygen): Room air (01/07/23 11:14:00) Early Warning Score: 6 (01/07/23 13:11:00) ? Intake/Output? 01/06 05:00 01/07 07:00 01/06 07:00 01/05 07:00 01/04 07:00 ?? 01/07 13:12 01/07 13:12 01/07 06:59 01/06 06:59 01/05 06:59 Intake ?358 ?118 ?240 ?0 ?0 Output ? 1000 ?0 ? 1000 ?0 ?0 Net Total ? -642 ?118 ? -760 ?0 ?0 ? Urine Count ?0 ?0 ?0 ?0 ?0 ? Precautions No Precautions documented.? . Physical Exam General: No acute distress, appropriate for age. Cardio: Regular rate and rhythm, normal S1 and S2, no murmurs appreciated. Respiratory: Good air entry??bilaterally with no audible wheezes or rales. GI: Soft, non tender, but distended. Bowel sounds present present in 4 quadrants. Declined DELMIS MSK: Above knee amputation Neuro: Grossly intact. Psych: Grossly appropriate. Consultants Dr. Chacon - Internal Medicine Patient Education Titles Chronic Kidney Disease (CKD)?? Anemia and Kidney Disease?? Follow-Up Appointments Added Follow Up ?Time Frame ?Comments [facility] PCP Assignment Line [phone]?1-2 day: call to discuss follow up visit Patient Instructions Dear Mr. Small, ?? Presented to the hospital because of fatigue and chest pain.?? He also had a concern for??continuing??gastrointestinal bleed.?? Hemoglobin 11??came out to be at??9.6??which is higher than when you??were last discharged from the hospital??indicating that??there are no??active??issues.?? As for your chest pain,??your initial blood work??was similar to the blood work you had??about a month or so agowhen you were in the emergency department.?? The heart enzyme, called troponin,??later improved.?? There were no electrical signals??indicating a heart attack on your EKG. ??Please call to set up an appointment with??a new primary care provider??which you should see as see soon as possible. ?? Please seek immediate medical attention if you sustain any severe chest pain, shortness of breath, you lose consciousness??or develop any seizures. ?? It was a pleasure caring for you, Hoping you get well soon. Post Discharge Care Activity: As tolerated Home Health Face to Face NA Results Discharge Labs BLOOD BANK Blood Type O Positive ()?? 01/05/2023 22:14 Antibody Screen Positive ()?? 01/05/2023 22:14 ?? BLOOD COUNT & DIFF WBC 4.3 k/mm3 ()?? 01/07/2023 10:41 RBC 3.02 m/mm3 (Low)?? 01/07/2023 10:41 Hgb 9.6 Gm/dL (Low)?? 01/07/2023 10:41 Hct 29.9 % (Low)?? 01/07/2023 10:41 MCV 99.0 femtoliters (High)?? 01/07/2023 10:41 MCH 31.8 pg ()?? 01/07/2023 10:41 MCHC 32.1 g/dL (Low)?? 01/07/2023 10:41 Platelet Count 96 k/mm3 (Low)?? 01/07/2023 10:41 RDW-SD 70.7 femtoliters (High)?? 01/07/2023 10:41 MPV NOT MEASURED femtoliters ()?? 01/07/2023 10:41 Nucleated RBC (Automated) 0.0 #/100 WBC'S ()?? 01/07/2023 10:41 Abs. NRBC 0.0 k/mm3 ()?? 01/07/2023 10:41 Abs. Neut 2.5 k/mm3 ()?? 01/05/2023 22:29 Abs. Lymph 0.6 k/mm3 (Low)?? 01/05/2023 22:29 Abs. [place] 0.4 k/mm3 ()?? 01/05/2023 22:29 Abs. Eo 0.1 k/mm3 ()?? 01/05/2023 22:29 Abs. Baso 0.0 k/mm3 ()?? 01/05/2023 22:29 Neut % 69.6 % ()?? 01/05/2023 22:29 Lymph % 16.7 % ()?? 01/05/2023 22:29 [place] % 10.3 % ()?? 01/05/2023 22:29 Eos % 2.8 % ()?? 01/05/2023 22:29 Baso % 0.3 % ()?? 01/05/2023 22:29 Hemoglobin (POC) POC Cartridge 9.5 Gm/dL (Low)?? 01/06/2023 00:01 Hematocrit (POC) POC Cartridge 28 % (Low)?? 01/06/2023 00:01 Imm Gran 0.3 % ()?? 01/05/2023 22:29 Abs. Imm Gran 0.0 k/mm3 ()?? 01/05/2023 22:29 ?? BLOOD GAS pH Venous (POC) POC Cartridge 7.46 (High)?? 01/06/2023 00:01 pCO2 Venous (POC) POC Cartridge 45.1 mm Hg ()?? 01/06/2023 00:01 pO2 Venous (POC) POC Cartridge 97 mm Hg (High)?? 01/06/2023 00:01 Est Bicarbonate (POC) POC Cartridge 32.2 mmol/L (High)?? 01/06/2023 00:01 % O2 Sat Venous (POC) POC Cartridge 98 ()?? 01/06/2023 00:01 Base Excess (POC) POC Cartridge 8 ()?? 01/06/2023 00:01 Specimen Type - Blood Gas VENOUS ()?? 01/06/2023 00:01 ? CARDIAC Nt-Probnp 88586 pg/mL (High)?? 01/05/2023 22:30 High Sensitivity Troponin (HSTnT) 89 ng/L (Critical)?? 01/06/2023 03:05 ?? CHEM GENERAL Sodium 142 mmol/L ()?? 01/05/2023 22:30 Potassium 3.6 mmol/L ()?? 01/05/2023 22:30 Chloride 100 mmol/L ()?? 01/05/2023 22:30 Bicarbonate Level 29 mmol/L ()?? 01/05/2023 22:30 Anion Gap 13 ()?? 01/05/2023 22:30 Sodium (POC) POC Cartridge 139 mmol/L ()?? 01/06/2023 00:01 Potassium (POC) POC Cartridge 4.1 mmol/L ()?? 01/06/2023 00:01 Glucose Level 110 mg/dL (High)?? 01/05/2023 22:30 Glucose (POC) POC Cartridge 107 (High)?? 01/06/2023 00:01 Glucose, POC 140 mg/dL (High)?? 01/07/2023 13:09 BUN 20 mg/dL ()?? 01/05/2023 22:30 Creatinine-Blood 4.4 mg/dL (High)?? 01/05/2023 22:30 Estimated GFR Creatinine 14 ML/MIN/1.73 M2 ()?? 01/05/2023 22:30 Calcium 8.8 mg/dL ()?? 01/05/2023 22:30 Ionized Calcium (POC) POC Cartridge 1.03 mmol/L (Low)?? 01/06/2023 00:01 Protein, Total 6.8 Gm/dL ()?? 01/05/2023 22:30 Albumin 4.1 Gm/dL ()?? 01/05/2023 22:30 AG Ratio 1.5 ()?? 01/05/2023 22:30 Alkaline Phosphatase 130 units/L (High)?? 01/05/2023 22:30 Lipase 35 units/L ()?? 01/05/2023 22:30 AST (SGOT) 19 units/L ()?? 01/05/2023 22:30 ALT (SGPT) 8 units/L ()?? 01/05/2023 22:30 Bilirubin, Total 0.4 mg/dL ()?? 01/05/2023 22:30 ? COAG INR 1.2 (High)?? 01/05/2023 22:29 Protime (PT) 12.9 seconds (High)?? 01/05/2023 22:29 APTT 30.8 seconds ()?? 01/05/2023 22:29 ? ENDOCRINE/TUMOR MARKER TSH 7.46 uIU/mL (High)?? 01/05/2023 22:30 Free T4 0.97 ng/dL ()?? 01/05/2023 22:30 ?? VIROLOGY COVID-19 by RT-PCR NEGATIVE ()?? 01/05/2023 23:10 ? Blood Glucose Trend Glucose, POC:??140 mg/dL??High (01/07/23 13:09:00) Glucose, POC:??110 mg/dL??High (01/06/23 20:46:00) Glucose, POC: 73 mg/dL (01/06/23 17:50:00) ? Patient's case and plan discussed with attending physician ??Oswaldo Mendoza MD Internal Medicine PGY-1 ?30 minutes spent on discharge * Richard JAY, Prisca Steiner: PERFORM, SIGN, VERIFY Event Display: Case Management Discharge Plan Authored Date: Patient: SARWAT SMALL Age: 67 years Sex: Male : 1955 Associated Diagnoses: None Author: Prisca Ramos RN Discharge Plan Case Management Discharge Plan : Case Management Discharge Plan Data 01/07/2023 13:11 EDT Discharge Level of Care at Discharge assisted facility Discharge Nursing Homes/Rehab Facilities [facility] [phone] Discharge Transportation Arranged [facility] Mariann Fuentes [facility] [phone] Discharge Arranged Transport Date/Time 01/07/2023 15:00 Mode of Transportation Arranged Ambulance Name of Agency #1 [facility] Service Categories #1 Physical Therapy, Nursing Home Additional Info for D/C Instructions You are being transfered back to [facility] today at 4 Pm. An amubulance will pick you up and bring you there. Name of Person Notified of Transfer Danna 01/07/2023 12:32 EDT Discharge Nursing Homes/Rehab Facilities [facility] [phone] * Génesis Jernigan: PERFORM Event Display: Patient Education/Instruction Authored Date: [id number] Inpatient Adult Discharge Instructions [address] [address] Name: SARWAT SMALL : 1955 Visit: 01/06/2023 05:00:00 Current Date: 01/07/2023 13:57 Account: [id number] Inpatient Adult Discharge Instructions We would like to thank you for allowing us to assist you with your healthcare needs. The following includes patient education materials and information regarding your injury/illness. Our entire staffstrives to provide an excellent experience for our patients and their families. PLEASE ENSURE YOU FOLLOW-UP PER THE INSTRUCTIONS BELOW! ?? YOUR OPINION IS IMPORTANT TO US! Please complete the survey you may receive by mail or email. Your feedback will be used to make improvements to the healthcare experiences of our patients and their families. Surveys are administered by [employer] ?? If further treatment with your primary care physician or another doctor is recommended, it is important for you to keep the appointment. Call your primary care physician or return to the Emergency Department immediately if your condition worsens, fails to improve, or new symptoms develop. If you need to find a doctor, you can call [facility] [employer] for a referral at [phone] or toll free at [phone]) or log in to [email or web address].. ?? You can view and manage your care through the patient portal or by using a health care zeina of your choosing. [employer] is a website that allows you to securely view your medical information including your hospital discharge summary, office visit summaries, medications and follow-up visits. You can also request appointments, renew medications, and request access to your medical information using a health care zeina of your choosing, or just ask a question. You can enroll at [email or web address] or register during your next office visit. You have been discharged from [facility], Patient Care Unit: S2. If you have any questions regarding these instructions after you leave, please call us and we will be happy to assist you. [facility] Your Care Team Attending Physician Oswaldo ROJAS, Marina Gaxiola Discharging Providers Kelly ROJAS, Griffin Kim Reason for Admission lightheaded, hypotensive Your Diagnosis Anemia Chest pain Fatigue Tests Performed Below is a partial list of the tests performed during your hospitalization. You may have had other tests and procedures not included in this list. Please discuss all test results with your provider. BASE EXCESS POC CARTRIDGE CALCIUM IONIZED POC CART CBC CBC w/ Differential Comprehensive Metabolic Panel COVID-19 (Novel Coronavirus), Rapid PCR FREE T4 GLUCOSE POC GLUCOSE POC CARTRIDGE HEMATOCRIT POC CARTRIDGE HEMOGLOBIN POC CARTRIDGE High??Sensitivity??Troponin T INR Lipase POTASSIUM POC CARTRIDGE ProBNP PTT SODIUM POC CARTRIDGE Troponin T, High Sensitivity TSH with T4 Reflex (Adults Only) Type and Screen VBG POC CARTRIDGE XR Chest 2 Views Frontal and Lat Primary Care Provider Not on Staff, PCP Advance Directive Health Care Proxy on File Yes - Health Care Proxy Yes - MOLST Discharge Vitals Temperature: 97.9 DegF Height: 167 cm Pulse Rate: 65 bpm Weight: 56.7 kg Respiratory Rate: 18 br/min Body Mass Index: 20.33 kg/m2 Systolic Blood Pressure: 98 mm Hg Body surface area: 1.62 Diastolic Blood Pressure:??51 mm Hg??Low ?? Oxygen Saturation: 100 % ?? Studies Pending All tests and labs ordered during this hospital stay have been completed unless listed below. Please discuss all pending results with your provider listed above in these instructions. ?? Blood Culture Blood Culture #2 Hold Gel Top Tube (HOLD GEL TUBE) What to do next Instructions From Your Doctor Dear Mr. Small, ?? Presented to the hospital because of fatigue and chest pain.?? He also had a concern for??continuing??gastrointestinal bleed.?? Hemoglobin 11??came out to be at??9.6??which is higher than when you??were last discharged from the hospital??indicating that??there are no??active??issues.?? As for your chest pain,??your initial blood work??was similar to the blood work you had??about a month or so agowhen you were in the emergency department.?? The heart enzyme, called troponin,??later improved.?? There were no electrical signals??indicating a heart attack on your EKG. ??Please call to set up an appointment with??a new primary care provider??which you should see as see soon as possible. ?? Please seek immediate medical attention if you sustain any severe chest pain, shortness of breath, you lose consciousness??or develop any seizures. ?? It was a pleasure caring for you, Hoping you get well soon. Discharge Orders Activity:??As tolerated You Need to Schedule the Following Appointments Follow Up with??[facility] PCP Assignment Line [phone] When??Within 1-2 day: call to discuss follow up visit Where: Discharge Medications SARWAT SMALL :1955 Visit Date:01/06/2023 Medications: Please continue your medications until treatment is completed or stopped by your provider. Medications not listed below should be discontinued. Discuss any questions related to medications with your provider. What How Much When Instructions Next Dose Unchanged Acetaminophen (acetaminophen 650 mg rectal suppository) 1 suppository(ies) Per rectum Every 6 hours as needed for for fever / general discomfort as needed Unchanged Atorvastatin (atorvastatin 80 mg oral tablet) 1 tab(s) Oral Daily at Bedtime tonight 9 PM Unchanged Brimonidine Ophthalmic (brimonidine 0.2% ophthalmic solution) 2 Drops Both eyes Twice a day tonight 9 PM Unchanged Carvedilol (carvedilol 25 mg oral tablet) 1 tab(s) Oral Twice a day tonight 9 PM Unchanged Cholecalciferol (cholecalciferol 50,000 intl units oral capsule) 1 capsule Oral Every 30 days on the ?? resume home regimen Unchanged Clonidine (cloNIDine 0.2 mg oral tablet) 1 tab(s) Oral 3 times a day Every Thursday, Thursday, , and Thursday ?? tomorrow morning 9 AM Unchanged Clonidine (cloNIDine 0.2 mg oral tablet) 1 tab(s) Oral Twice a day every Thursday, Thursday,and Thursday * hold for systolic blood pressure <110 ?? tonight 9 PM Unchanged Docusate (docusate sodium 100 mg oral capsule) 1 capsule Oral Twice a day tonight 9 PM Unchanged Epoetin Shayla 20,000 unit(s) IV Push Slowly Thursday, Thursday and Thursday (NOT ON CURRENT PAPER CHART) ?? resume home regimen Unchanged Ferrous Sulfate (ferrous sulfate 325 mg oral enteric coated tablet) 325 Milligram Oral 3 times a day tonight 9 PM Unchanged Gabapentin (gabapentin 100 mg oral capsule) 2 capsule Oral Daily at Bedtime tonight 9 PM Unchanged hydrALAZINE (hydrALAZINE 25 mg oral tablet) 1 tab(s) Oral 3 times a day as needed for Blood Pressure Duration: 30 Days Give if BP > 140 inspite of all his other BP ??meds ?? as needed Unchanged Isosorbide Mononitrate (Imdur ER) 60 Milligram Oral Daily Hold for systolic BP<100 mm Hg ?? tomorrow morning 9 AM Unchanged Levothyroxine (levothyroxine 150 mcg (0.15 mg) oral tablet) 1 tab(s) Oral Daily tomorrow morning before breakfast Unchanged Lidocaine Topical (lidocaine 4% topical cream) Topically Thursday, Thursday and Thursday Aplly to fistula prior to dialysis ?? resume home regimen Unchanged Multivitamin (Vitamin B Complex oral tablet, extended release) 1 tab(s) Oral Daily tomorrow morning 9 AM Unchanged nalOXONE (Narcan 4 mg/ 0.1 mL nasal spray) 4 Milligram Naris, Left Once as needed for as needed as needed Unchanged NIFEdipine (NIFEdipine 60 mg oral tablet, extended release) 1 tab(s) Oral Twice a day Hold for systolic BP<100 mm Hg ?? tonight 9 PM Unchanged Pantoprazole (pantoprazole 40 mg oral delayed release tablet) 1 tab(s) Oral Twice a day tonight 9 PM Unchanged Senna (Senna 8.6 mg oral tablet) 1 tab(s) Oral Twice a day tonight 9 PM Unchanged Sucralfate (sucralfate 1 gm oral tablet) 1 tab(s) Oral Twice a day before meals ?? tonight with dinner Test Results Below is a partial list of the most recent Laboratory test results done prior to this discharge. You may have had other tests and procedures not included in this list. Please discuss all test resultswith your provider. BASE EXCESS POC CARTRIDGE (01/06/2023) ???Base Excess (POC) POC Cartridge - 8 CALCIUM IONIZED POC CART (01/06/2023) ???Ionized Calcium (POC) POC Cartridge - 1.03 mmol/L CBC (01/07/2023) ???WBC - 4.3 k/mm3???RBC - 3.02 m/mm3???Hgb - 9.6 Gm/dL???Hct - 29.9 %???MCV - 99.0 femtoliters???MCH - 31.8 pg???MCHC - 32.1 g/dL???Platelet Count - 96 k/mm3???RDW-SD - 70.7 femtoliters???MPV - NOT MEASURED???Nucleated RBC (Automated) - 0.0 #/100 WBC'S???Abs. NRBC - 0.0 k/mm3 CBC w/ Differential (01/05/2023) ???WBC - 3.6 k/mm3???RBC - 2.60 m/mm3???Hgb - 8.3 Gm/dL???Hct - 26.0 %???MCV - 100.0 femtoliters???MCH - 31.9 pg???MCHC - 31.9 g/dL???Platelet Count - 70 k/mm3???RDW-SD - 72.3 femtoliters???MPV - NOTMEASURED???Nucleated RBC (Automated) - 0.0 #/100 WBC'S???Abs. NRBC - 0.0 k/mm3???Abs. Neut - 2.5 k/m m3???Abs. Lymph - 0.6 k/mm3???Abs. [place] - 0.4 k/mm3???Abs. Eo - 0.1 k/mm3???Abs. Baso - 0.0 k/mm3???Neut % - 69.6 %???Lymph % - 16.7 %???[place] % - 10.3 %???Eos % - 2.8 %???Baso % - 0.3 %???Imm Gran - 0.3 %???Abs. Imm Gran - 0.0 k/mm3 Comprehensive Metabolic Panel (01/05/2023) ???Sodium - 142 mmol/L???Potassium - 3.6 mmol/L???Chloride - 100 mmol/L???Bicarbonate Level - 29 mmol/L???Anion Gap - 13???Glucose Level - 110 mg/dL???BUN - 20 mg/dL???Creatinine-Blood - 4.4 mg/dL???Estimated GFR Creatinine - 14 ML/MIN/1.73 M2???Calcium - 8.8 mg/dL???Protein, Total - 6.8 Gm/dL???Albumin - 4.1 Gm/dL???AG Ratio - 1.5???Alkaline Phosphatase - 130 units/L???AST (SGOT) - 19 units/L???ALT (SGPT) - 8 units/L???Bilirubin, Total - 0.4 mg/dL COVID-19 (Novel Coronavirus), Rapid PCR (01/05/2023) ???COVID-19 by RT-PCR - NEGATIVE FREE T4 (01/05/2023) ???Free T4 - 0.97 ng/dL GLUCOSE POC (01/07/2023) ???Glucose, POC - 140 mg/dL GLUCOSE POC CARTRIDGE (01/06/2023) ???Glucose (POC) POC Cartridge - 107 HEMATOCRIT POC CARTRIDGE (01/06/2023) ???Hematocrit (POC) POC Cartridge - 28 % HEMOGLOBIN POC CARTRIDGE (01/06/2023) ???Hemoglobin (POC) POC Cartridge - 9.5 Gm/dL High??Sensitivity??Troponin T (01/05/2023) ???High Sensitivity Troponin (HSTnT) - 105 ng/L INR (01/05/2023) ???INR - 1.2???Protime (PT) - 12.9 seconds Lipase (01/05/2023) ???Lipase - 35 units/L POTASSIUM POC CARTRIDGE (01/06/2023) ???Potassium (POC) POC Cartridge - 4.1 mmol/L ProBNP (01/05/2023) ???Nt-Probnp - 73572 pg/mL PTT (01/05/2023) ???APTT - 30.8 seconds SODIUM POC CARTRIDGE (01/06/2023) ???Sodium (POC) POC Cartridge - 139 mmol/L Troponin T, High Sensitivity (01/06/2023) ???High Sensitivity Troponin (HSTnT) - 89 ng/L TSH with T4 Reflex (Adults Only) (01/05/2023) ???TSH - 7.46 uIU/mL Type and Screen (01/05/2023) ???Blood Type - O Positive???Antibody Screen - Positive VBG POC CARTRIDGE (01/06/2023) ???pH Venous (POC) POC Cartridge - 7.46???pCO2 Venous (POC) POC Cartridge - 45.1 mm Hg???pO2 Venous(POC) POC Cartridge - 97 mm Hg???Est Bicarbonate (POC) POC Cartridge - 32.2 mmol/L???% O2 Sat Venous (POC) POC Cartridge - 98???Specimen Type - Blood Gas - VENOUS Allergies (NKA means No Known Allergies) lisinopril Problems Active Problems??(16) Anemia of chronic disease?? Chronic pain syndrome?? COPD (chronic obstructive pulmonary disease)?? Coronary artery disease?? Diabetes mellitus?? ESRD on dialysis?? Gastritis?? Hepatitis C, chronic?? Hyperlipidemia?? Hypertension?? Hypothyroidism?? Hypothyroidism?? Peripheral vascular disease?? Pulmonary edema?? Respiratory failure, chronic?? TACO (transfusion associated circulatory overload)?? Education Materials Below is the list of Educational Leaflet Providered with your Discharge Instructions. Chronic Kidney Disease (CKD)?? Anemia and Kidney Disease?? Valuables and Belongings I fully understand and agree that [facility] accepts no responsibility for all my personal property including clothing, toilet articles, radios, jewelry, dentures, hearing aids, rings, money, or any other property that is in my possession or is brought to me after admission. I understand certain valuables may be placed in a hospital safe for a short period of time. I understand that the hospital is not liable for loss or damage due to accident, fire, or other natural occurrence while said property is in the safe. I accept full responsibility for any personal property that I keep with me, and will not hold the hospital responsible in case of loss or disappearance. I acknowledge that i have been encouraged to send valuables and belongings home. ?? Review of Valuable and Belonging List: With patient Date for Pt to Sign Valuables/Belongings: 01/06/23 17:28:00 ?? Other Discharge Information ? Case Management Discharge Plan?? Discharge Plan?? Discharge Agency Information?? Discharge Level of Care at Discharge: assisted facility Name of Agency #1: [facility] Discharge Transportation Arranged: [facility] [address] [facility] [address] [phone] Service Categories #1: Physical Therapy, Nursing Home Mode of Transportation Arranged: Ambulance Additional Info for D/C Instructions: You are being transfered back to [facility] today at 4 Pm. An amubulance ??will pick you up and bring you there. Discharge Arranged Transport Date/Time: 01/07/23 15:00:00 Name of Person Notified of Transfer: Danna Discharge Nursing Homes/Rehab Facilities: [facility] [place] ??[phone] ? Pulmonary Rehab Status?? Pulmonary Rehab Discharge Status?? Respiratory Rate: 18 br/min ? Common Emergency Awareness Tips IS IT A STROKE? Act FAST and Check for these signs: FACE Does the face look uneven? ARM Does one arm drift down? SPEECH Does their speech sound strange? TIME Call at any sign of stroke ?? Heart Attack Signs Chest discomfort: Most heart attacks involve discomfort in the center of the chest and lasts more than a few minutes, or goes away and comes back. It can feel like uncomfortable pressure, squeezing, fullness or pain. Discomfort in upper body: Symptoms can include pain or discomfort in one or both arms, back, neck, jaw or stomach. Shortness of breath: With or without discomfort. Other signs: Breaking out in a cold sweat, nausea, or lightheaded. Remember, MINUTES DO MATTER. If you experience any of these heart attack warning signs, call to get immediate medical attention! ?? Smoking can increase your chances of developing chronic health problems and can cause harmful effects to other family members in your house. If you smoke, you are strongly encouraged to quit. Please call [facility] [employer] Link at [phone] or [phone] ([phone]) or log in to www.[email or web address] for referrals to smoking cessation programs. ?? The National Suicide Prevention Hotline is available 20/04 if you or someone you know needs to find a reason to keep living. By calling 4-850-208-[employer] (7186) you'll be connected to a skilled, trained counselor at a crisis center in your area. INPATIENT DISCHARGE INSTRUCTIONS SIGNATURE PAGE SARWAT SMALL Location:[facility] Registration Date and Time:01/06/2023 05:00 EDT Primary Care Physician: Not on Staff, PCP I SARWAT SMALL, have received the above patient education materials/instructions and have verbalized understanding. If ambulance or transport services are being used I further acknowledge being given a choice of service. ?? If you need to contact me, please call me at this number: . Patient/Boats Renter Name: Patient/Boats Renter Signature: Relationship to Patient: Witness Name/Signature: Date: * Kelly ROJAS, Griffin H: PERFORM Event Display: Patient Education Leaflets Authored Date: [id number] Chronic Kidney Disease (CKD) ?? [id number] Chronic Kidney Disease (CKD) The role of the kidneys is to remove waste products and extra water from the blood.??When the kidneys don't work as they should, waste products start to build up in the blood. This is called chronic kidney disease (CKD). CKD means that you have kidney damage or a decrease in kidney function lastingat least 3 months. CKD allows extra water, waste, and toxins to build up in the body. This can eventually become life-threatening. You might need dialysis or a kidney transplant to stay alive. This most severe form is called end-stage renal disease. Diabetes is one of the leading causes of chronic renal failure. Other causes include high blood pressure, hardening of the arteries (atherosclerosis), lupus, inflammation of the blood vessels (vasculitis), and past viral or bacterial infections. Certain jvzp-lce-tixbndd pain medicines can cause renal failure when taken often over a long period of time. These include aspirin, ibuprofen, and related anti-inflammatory medicines called NSAIDs (nonsteroidal anti- inflammatory drugs). Home care These guidelines will help you care for yourself at home: ??? If you have diabetes, talk??with yourhealthcare provider about keeping your blood sugar under control. Ask if you need to make and changes to your diet, lifestyle, or medicines. ??? If you have high blood pressure: o Take prescribed medicine to lower your blood pressure to the recommended goal of less than 130/80. o Start a regular exercise program that you enjoy.??Check with your healthcare provider to be sure your planned exerciseprogram is right for you. o Eat less salt (sodium).??Your healthcare provider can tell you how muchsalt per day is safe for you. ??? If you are overweight, talk??with your??healthcare provider??about a weight loss plan. ??? If you smoke, you must quit. Smoking makes kidney disease worse and puts you at risk for developing other serious illnesses.??Talk??with your healthcare provider about ways to help you quit.??For more information, visit the following links: o www.smokefree.gov/sites/default/files/pdf/pywzukmc-jls-tby-accessible.pdf o www.smokefree.gov o www.cancer.org/healthy/stayawayfromt obacco/guidetoquittingsmoking ??? Most people with??CKD need to follow a special diet. Make sure you understand yours. In general, you will need to limit protein, salt, potassium, and phosphorus.??You also need to limit how much fluid you drink. ??? CKD is a risk factor for heart disease. Talk??with your healthcare provider about any other risk factors you might have and what you can do to lessenthem. ??? Talk??with your healthcare provider about any medicines you are taking to find out if they need to be reduced or stopped. ??? For your own safety, check with your healthcare provider beforetaking any medicines or supplements. Don't use the following gpjx-fyl-mrueqoe medicines. Or consultyour healthcare provider before using them: o Aspirin and NSAIDs such as ibuprofen or naproxen. Using acetaminophen for fever or pain is OK. o Laxatives and antacids containing magnesium or aluminum o Fleet or phospho-soda enemas containing phosphorus o Certain stomach acid-blocking medicine such as cimetidine or ranitidine?? o Decongestants containing pseudoephedrine?? o Herbal supplements ?? Follow-up care Follow up with your healthcare provider as advised. Visit these websites to learn more: ??? [employer] at www.aakp.org ??? National Kidney Foundation at www.kidney.org ??? [employer] Kid[employer] Fund at www.kidneyfund.org ??? National Kidney Disease Education Program at www.nkdep.nih.gov If an X-ray, ECG (electrocardiogram), or other diagnostic test was taken, you'll be told of any newfindings that may affect your care. ?? Call 911 Call 911 right away if any of these occur: ??? Severe weakness, dizziness, fainting, drowsiness, orconfusion ??? Chest pain or shortness of breath ??? Heart beating fast, slow, or irregularly ?? When to get medical advice Call your healthcare provider right away if you have any of these: ??? Upset stomach (nausea) or vomiting ??? Fever??of 100.4??F (38??C) or higher, or as advised by your provider ??? Unexpected weight gain or swelling in the legs, ankles, or around the eyes ??? Not peeing a lot, or not peeing at all ??? New symptoms or symptoms that get worse ?? Last Reviewed Date: 2022 ?? 2315-1741 [employer]. All rights reserved. This information is not intended as a substitute for professional medical care. Always follow your healthcare professional's instructions. ?? * Kelly ROJAS, Griffin H: PERFORM Event Display: Patient Education Leaflets Authored Date: [id number] Anemia and Kidney Disease ?? 20328 Anemia and Kidney Disease Anemia is a health problem that affects your blood. Kidneys normally make a hormone called erythropoietin. This important hormone prompts the bone marrow to make new red blood cells. If you have kidney disease, your kidneys may not be able to make enough of this hormone. You may also not have enough iron in your body. Iron is vital to making red blood cells. You need??to replace iron before usingcertain medicines. Use this handout to help you understand anemia and the medicines that can help control it. What is anemia? Anemia occurs when your blood does not have enough red blood cells Your blood isn't able to carry as much oxygen throughout your body. As a result, all your organs have too little oxygen. Red blood cells make up 35% to 45% of normal blood. If you have anemia, your red cell count (hematocrit) is below 35%. ?? Signs of anemia Anemia can cause you to feel tired quickly. Talk with your healthcare provider if you have any of these signs: ??? Ongoing fatigue ??? Shortness of breath ??? Rapid, irregular heartbeat ??? Trouble concentrating ??? Impotence ??? Feeling dizzyor lightheaded ??? Constant feeling of being cold ??? Pale skin ?? Medicines can help If you???re at risk for anemia, you may be given a medicine called epoetin shayla (sometimes called EPO). EPO is a manmade version of erythropoietin. EPO controls anemia by telling your body to make red blood cells. Most people who take EPO feel better and become more active. Your healthcare providercan also check your iron level. Iron helps EPO increase the red blood cells. In some cases, you may need other nutrients, like vitamins and minerals, to help with your anemia. ?? How EPO and iron are used EPO may be used to treat any person with kidney disease who has anemia. It is most often used to treat people on dialysis. EPO is given as a shot under the skin. This is how most CAPD (continuous ambulatory peritoneal dialysis) patients get it. Those on hemodialysis can get it through their IV (intravenous) line. But it costs more and may not work as well as the shots. If you lack iron, you may need to take iron pills or get iron through an IV. ?? Last Reviewed Date: 2022 ?? 3058-4418 [employer]. All rights reserved. This information is not intended as a substitute for professional medical care. Always follow your healthcare professional's instructions. ?? * BHSPowerscribe , CIS S: TRANSCRIBE Hayde Puentes MD: VERIFY Usha Nowak MD: SIGN Event Display: Result: Authored Date: [id number] Chest 2 Views Frontal and Lat Reason: Shortness of Breath; Clinical Question(s): CHF COMPARISON: Multiple priors, most recent 12/05/2022 FINDINGS: LINES AND TUBES: None. LUNGS AND PLEURA: Left greater than right bibasilar atelectasis. Unchanged chronic elevation of the right hemidiaphragm. Normal pulmonary vascularity. No pleural effusion. No pneumothorax. HEART, MEDIASTINUM AND JOSELYN: Heart is normal in size. Normal mediastinal and hilar contour. BONES AND SOFT TISSUES: No acute abnormality. Status post median sternotomy. Vascular stent visualized within the left axilla. IMPRESSION: No acute abnormality. No evidence of pulmonary edema. I have personally reviewed the images and I agree with this report. WSN: [id number] Ordering Physician: Natasha Villa Dictated By: Usha Nowak MD Dictated Date/Time: 01/06/23 8:16 am Reviewed By: Hayde Puentes MD Signed By: Hayde Puentes MD Signed Date/Time: 01/06/23 8:21 am Transcribed By: WILFREDO Transcribed Date/Time: 01/06/23 8:14 am Hospital Progress note * Kirti ROJAS, Rudy I: SIGN Kirti ROJAS, Rudy I: SIGN, MODIFY Rudy Cotto MD I: MODIFY, VERIFY Tamara HOPE, Mary Ellen: VERIFY, SIGN Tamara HOPE, Mary Ellen: SIGN Event Display: Progress Note Hospital Authored Date: [id number] Patient: SARWAT SMALL Age: 67 years Sex: Male : 1955 Associated Diagnoses: None Author: Mary Ellen Mcdonald NP Pt seen and examined; events noted. HD yesterday with 1L removed. Review of Systems Review of Systems Constitutional: no complaints. Respiratory: no shortness of breath. Cardiovascular: no orthopnea, no peripheral edema. Gastrointestinal: no abdominal pain, no nausea, no vomiting, no diarrhea. Physical Examination Vitals Today's visit vitals : RENAL FLOWSHEET(Posting Range: 01/04/2023 0:00 EDT - 01/07/2023 7:16 EDT) 01/07/2023 5:31 EDT Systolic Blood Pressure 147 mm Hg H Diastolic Blood Pressure 60 mm Hg . Vitals : VITAL SIGNS SECTION 01/07/2023 5:31 EDT Temperature 97.9 DegF Temperature Route Oral Pulse Rate 56 bpm Respiratory Rate 18 br/min Systolic Blood Pressure 147 mm Hg H Diastolic Blood Pressure 60 mm Hg Blood pressure sites Arm, left Mean Arterial Pressure 89 mm Hg Pulse Pressure 87 mm Hg Oxygen Saturation 100 % Liters per Minute 2 L/min Mode of Delivery (Oxygen) Room air . General Appearance No apparent distress. HEENT Moist mucous membranes. Respiratory Lungs: CTA. Cardiac No murmur/gallop/rub. Rhythms: RRR. Abdomen/GI Soft. Non-tender. Extremities Normal. Neurologic Alert. Oriented x 3 . Impression and Plan Mr. Small is a 67-year-old male with a history of ESRD secondary to diabetic nephropathy who dialyzes on a T/T/S schedule at [facility] via a right upper extremity AV Fistula. He presented to [facility] on 01/06 in the setting of feeling fatigued, lightheaded, and tired. 1. ESRD on HD - schedule: T/T/S at [facility] - access: RUE AV Fistula 2. Fatigue - likely secondary to anemia Plan - HD on T/T/S schedule while admitted Case discussed with Dr. Cotto. Thank you for allowing us to participate in your patient's care. * Rudy Cotto MD I: PERFORM Event Display: Progress Note Hospital Authored Date: I reviewed the patient's history, examined the patient, and confirmed the above findings as documented by the fellow/resident. I personally formulated the essential elements of the assessment and plan noted above. Dr. Cotto * Denise JAY, Ashley: PERFORM, SIGN, VERIFY Event Display: Progress Note Hospital Authored Date: [id number] Patient: SARWAT SMALL Age: 67 years Sex: Male : 1955 Associated Diagnoses: None Author: Denise JAY, Ashley Findings Nursing Data Cardiac Data. : Cardiac Data. 01/06/2023 21:00 EDT Cardiac Rhythm Normal sinus rhythm, Sinus bradycardia cafeteria monitor Yes Cardiovascular WNL except . Gastrointestinal Data. : Gastrointestinal Data. 01/06/2023 21:00 EDT GI WNL . Genitourinary Data. : Genitourinary Data. 01/06/2023 21:00 EDT Genitourinary Symptoms Anuria WNL except . HEENT Data. : HEENT Assessment 01/06/2023 21:00 EDT HEENT, Adult WNL . Integumentary Data. : Integumentary Data. 01/07/2023 3:04 EDT Sensory Perception No impairment Moisture Rarely moist Activity Bedfast Mobility No limitations Nutrition Excellent Friction and Shear No apparent problem Rod Score 20 Nursing Care Plan initiated/updated Not applicable 01/07/2023 0:00 EDT Integumentary Assessment Status Unchanged from recorder's assessment 01/06/2023 21:00 EDT Skin Integrity Intact Activity Bedfast Integumentary WNL except . Musculoskeletal Data. : Musculoskeletal Data. 01/06/2023 21:00 EDT Musculoskeletal Symptoms Weakness Musculoskeletal WNL except . Neurological Data. : Neurological Data. 01/06/2023 21:45 EDT Pain Intensity 0 01/06/2023 21:00 EDT Neurological Symptoms Other: Baseline a/o x4, bilateral AKA Neuro WNL except . Patient Care Data. : Patient Care Data. 01/07/2023 1:00 EDT Patient Care Comment pt refused labs . Narrative/Incidental Pt is alert and oriented x3, Tele-NSR/SB, Pt denies any new complaints. Pt 2 LNC baseline Refused labs overnight, will ask phleb to reattempt after 8am. All needs within raech. Fall preacutions in place.Will continue to monitor/follow plan of care. . * Aziza Herrera: PERFORM, SIGN, VERIFY Event Display: Progress Note Hospital Authored Date: [id number] Patient: SARWAT SMALL Age: 67 years Sex: Male : 1955 Associated Diagnoses: None Author: Aziza Herrera Findings Narrative/Incidental Patient received 2.5 hours of treatment today and removed 1 L of fluid. Pt hematocrit line at the end of treatment was negative 15.7 % and tolerated well. Pt denies dizziness or cramping. BP and vitals were within normal limits throughout treatment. Patient fistula had no signs or symptoms of infection and ran at prescribed BFR. Bruit and thrill were positive upon assessment. See interactive flowsheet for vital signs post ICHD treatment. See paper flowsheet for pre-treatment assessment and medications given. Patient was stable when transferred off unit. . Patient Care team information Care Team Personnel Name: Capri Bush RN Position: [facility] RN Member Role: Primary Care Nurse Name: Arnold Canales RN Position: [facility] RN Member Role: Primary Care Nurse Name: Linda La RN Position: [facility] Outreach Member Role: Primary Care Nurse Name: Arlen Hale LPN Position: [facility] RN Member Role: Primary Care Nurse Name: Chloe Dhaliwal RN Position: [facility] RN Member Role: Primary Care Nurse Name: Laureano Crawley RN Position: [facility] RN Member Role: Primary Care Nurse Name: Mary Ellen Mcdonald NP Position: [facility] Associate Professional Member Role: Lifetime Consulting Provider Address: Address: [address] [place], [place] [address]E [facility] [address] Name: Barrie Lopez MD Position: [facility] Renal MD Member Role: Lifetime Consulting Physician Address: Address: [address] [place], [place] [address] [facility] [address] Name: Dread Trent RN Position: [facility] RN Member Role: Primary Care Nurse Name: Wojciech Arriaga RN Position: [facility] RN Member Role: Primary Care Nurse Name: Jodi Parr RN Position: [facility] RN Member Role: Primary Care Nurse Name: Nasreen Gamble RN Position: [facility] OB RN Member Role: Primary Care Nurse Name: Marvin Dooley DO Position: [facility] Renal MD Member Role: Lifetime Consulting Physician Address: Address: [address] [place], [place] [address]E [facility] [place] [address]- Name: Fermín Dominguez III, RN Position: [facility] RN Member Role: Primary Care Nurse Name: Rut Tucker Position: [facility] RN Member Role: Primary Care Nurse Name: Not on Staff, PCP Position: [facility] Physician (General Medicine) Member Role: PCP Name: Gutierrez Anderson MD Position: [facility] Renal MD Member Role: Lifetime Consulting Physician Address: Address: [address] [facility] [place] [address]- Name: Leeann Brown RN Position: [facility] RN Member Role: Primary Care Nurse Name: Pepe Brown RN Position: [facility] RN Member Role: Primary Care Nurse Name: Kassy Jo RN Position: [facility] RN Member Role: Primary Care Nurse Name: Leeann Rojas RN Position: [facility] RN Member Role: Primary Care Nurse Name: Patricia [place] RN Position: [facility] RN Member Role: Primary Care Nurse Name: Martha Lawson RN Position: [facility] RN Member Role: Primary Care Nurse Name: Geraldine Whyte RN Position: [facility] RN Member Role: Primary Care Nurse Name: Janna Valverde RN Position: [facility] RN Member Role: Primary Care Nurse Name: Kyle Matthews RN Position: [facility] RN Member Role: Primary Care Nurse Name: Rasta Silverio RN Position: [facility] RN Member Role: Primary Care Nurse Name: Judi Phillips RN, I Position: [facility] RN Member Role: Primary Care Nurse Name: Franky BLANKENSHIP Attending Position: [facility] ED Medicine MD Name: Corinne Khalil Position: [facility] ED TA [facility] Member Role: Flat Folding Machine Operator Name: Deborah Lawrence RN Position: [facility] ED RN W/OE and Tasks Member Role: Patient Care Provider Care Team Related Persons Name: DANNA ORR Address: [place] [address]
--- OUTSIDE RECORDS SUMMARY | 2023-08-23 07:13 | XMS_ITS | Continuity of Care Document ---
Author Name Unknown Organization [facility] Address [address] [place] [address]- Care Team Providers Care Installer Technician Name Role Phone Ashley Byrne MD [id number] Date(s): 05/15/22 - 10/15/22 [facility] [address] [place] [address] Discharge Disposition: A-D/C Home Attending Physician: Earnest Rascon MD Admitting Physician: Earnest Rascon MD Referring Physician: Not on Staff, Referring MD Allergies, Adverse Reactions, Alerts Substance Reaction Severity Status lisinopril Active Immunizations Given and Recorded Vaccine Date Status Refusal Reason [id number] 12y+ bivalent booster vax 08/01/22 Recorded SARS-CoV-2 (COVID-19) mRNA-1273 vaccine 07/04/22 R ecorded SARS-CoV-2 (COVID-19) mRNA-1273 vaccine 11/13/20 R ecorded SARS-CoV-2 (COVID-19) mRNA-1273 vaccine 10/15/20 R ecorded SARS-CoV-2 mRNA ([id number]) vax 02/04/22 Recorded SARS-CoV-2 (COVID-19) mRNA BNT-162b2 vac 09/05/21 Recorded Medications acetaminophen 325 mg oral tablet 650 mg, 2, tablet, By Mouth, Every 6 hours, PRN, Maintenance, as needed for fever/pain, 05/09/22 18:36:00 EDT, Partial fill upon patient request i; Start Date: 05/09/22 Status: Ordered aspirin 81 mg oral tablet, chewable 81 mg, 1, tablet, By Mouth, Daily, Refills 0, Maintenance, 05/28/22 15:57:00 EDT, ; Start Date: 05/28/22 Status: Ordered atorvastatin 80 mg oral tablet [...] tablet, By Mouth, 3 times a day, on Thu, Mon, Wed, Thu, Refills 0, Maintenance, 10/14/2312:53:00 EST, Partial fill upon patient request if the prescription is for a schedule II opioid drug. Start Date: 10/14/22 Status: Ordered cloNIDine 0.2 mg oral tablet 0.2 mg, 1, tablet, By Mouth, 2 times a day, Thu, Maintenance, 10/14/22 13:54:00 EST, Partial fill upon patient request if the prescription is for a schedule II opioid drug. Start Date: 10/14/22 Status: Ordered docusate sodium 100 mg oral capsule 100 mg, 1, capsule, By Mouth, 2 times a day, Refills 0, Maintenance, 04/26/22 21:39:00 EDT, ; Start Date: 04/26/22 Status: Ordered docusate sodium 100 mg oral tablet 1 tablet = 100 mg, By Mouth, 2 times a day, Maintenance, 10/14/22 13:58:00 EST, Tablet, Partial fill upon patient request if the prescription is for a schedule II opioid drug. Start Date: 10/14/22 Status: Ordered Dulcolax 10 mg rectal suppository [...] patient req; Start Date: 05/27/22 Status: Ordered gabapentin 100 mg oral capsule 100 mg, 1, capsule, By Mouth, Daily, Refills 5, Maintenance, 04/26/22 21:39:00 EDT, ; Start Date: 04/26/22 Status: Ordered Imdur 30 mg oral tablet, extended release 1, tablet, By Mouth, Daily, Refills 0, Maintenance, 05/01/22 8:06:00 EDT, ; Start Date: 05/01/22 Status: Ordered levothyroxine 200 mcg (0.2 mg) [...] release 60 mg, 1, tablet, By Mouth, Daily, Maintenance, 10/14/22 13:56:00 EST, Partial fill upon patient request if the prescription is for a schedule II opioid drug. Start Date: 10/14/22 Status: Ordered pantoprazole 40 mg oral delayed [...] Team Personnel Name: Capri Bush RN Position: [facility] RN Member Role: Primary Care Nurse Name: Arlen Hale LPN Position: S RN Member Role: Primary Care Nurse Name: Chloe Dhaliwal RN Position: S RN Member Role: Primary Care Nurse Name: Laureano Crawley RN Position: S RN Member Role: Primary Care Nurse Name: Mary Ellen Mcdonald NP Position: [facility] Associate Professional Member Role: Lifetime Consulting Provider Address: Address: [address] [place], [place] [address] [place] [address]- [place] Name: Dread Trent RN Position: [facility] RN Member Role: Primary Care Nurse Name: Yudelka Hawkins RN Position: S RN Member Role: Primary Care Nurse Name: Wojciech Arriaga RN Position: S RN Member Role: Primary Care Nurse Name: Jodi Parr RN Position: [facility] RN Member Role: Primary Care Nurse Name: Nasreen Gamble RN Position: [facility] OB RN Member Role: Primary Care Nurse Name: Marvin Dooley DO Position: [facility] Renal MD Member Role: Lifetime Consulting Physician Address: Address: [address] [facility] [place] [address]- [place] Name: Fermín Dominguez III, RN Position: [facility] RN Member Role: Primary Care Nurse Name: Gutierrez Anderson MD Position: [facility] Renal MD Member Role: Lifetime Consulting Physician Address: Address: [address] [facility] [place] [address]- [place] Name: Pepe Brown RN Position: [facility] RN Member Role: Primary Care Nurse Name: Kassy Jo RN Position: [facility] RN Member Role: Primary Care Nurse Name: Patricia Chase RN Position: [facility] RN Member Role: Primary Care Nurse Name: Felisha Simon Position: [facility] RN Member Role: Primary Care Nurse Name: Martha Lawson RN Position: [facility] RN Member Role: Primary Care Nurse Name: Stephen Hua RN Position: [facility] RN Member Role: Primary Care Nurse Name: Geraldine Whyte RN Position: [facility] RN Member Role: Primary Care Nurse Name: Ashley Byrne MD Position: [facility] Outreach Member Role: PCP Address: Address: [address] [address]- [place] Name: Janna Valverde RN Position: [facility] RN Member Role: Primary Care Nurse Name: Kyle Matthews RN Position: [facility] RN Member Role: Primary Care Nurse Name: Judi Phillips RN, I Position: [facility] RN Member Role: Primary Care Nurse Care Team Related Persons Name: DANNA ORR Address: [place] [address]
--- OUTSIDE RECORDS SUMMARY | 2023-08-23 07:13 | XMS_ITS | Continuity of Care Document ---
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 Name Role Phone Ashley Byrne MD Primary Care Physician Encounter [facility] [place](s): 10/30/22 - 11/05/[address] [address]- Encounter Diagnosis Anemia(Final) - 11/02/22 Discharge Disposition: A-Transfer SNF Attending Physician: Quinten Espino DO Admitting Physician: Allan Hope MD Referring Physician: Not on Staff, Referring MD Allergies, Adverse Reactions, Alerts Substance Reaction Severity Status lisinopril Active Immunizations Given and Recorded Vaccine Date Status Refusal Reason [id number] 12y+ bivalent booster vax 08/01/22 Recorded SARS-CoV-2 (COVID-19) mRNA-1273 vaccine 07/04/22 R ecorded SARS-CoV-2 (COVID-19) mRNA-1273 vaccine 11/13/20 R ecorded SARS-CoV-2 (COVID-19) mRNA-1273 vaccine 10/15/20 R ecorded SARS-CoV-2 mRNA ([id number]) vax 02/04/22 Recorded SARS-CoV-2 (COVID-19) mRNA BNT-162b2 [...] gabapentin 100 mg oral capsule 100 mg, Capsule, By Mouth, 11/05/22 9:00:00 EST Start Date: 11/05/22 Stop Date: 11/05/22 Status: Completed gabapentin 100 mg oral capsule 100 mg, [...] release 60 mg, ER Tablet, By Mouth, 11/05/22 9:00:00 EST Start Date: 11/05/22 Stop Date: 11/05/22 Status: Completed NIFEdipine 60 mg oral tablet, extended release 60 mg, 1, tablet, By Mouth, 2 times a day, Hold for systolic BP<100 mm Hg, Refills 0, Maintenance, 10/16/22 11:37:00 EST, Partial fill upon patient request if the prescription is for a schedule IIopioid drug. Start Date: 10/16/22 Status: Ordered oxyCODONE 5 mg oral tablet 5 mg, Tablet, By Mouth, Every 6 hours, PRN for Pain , Moderate, STAT, 10/30/22 22:48:00 EST Start Date: 10/30/22 Stop Date: 11/05/22 Status: Discontinued pantoprazole 40 mg oral delayed release tablet [...] Services if any questions. Results Radiology Reports * Exam Date Time Procedure Performing Provider Status 10/30/22 6:[address] Angio Abdomen and Pelvis Alicia Flores; Auth (Verified) Notes: (CT Angio Abdomen and Pelvis) Reason For Exam: GI bleed;Other: RESULT: CT Angio Abdomen and Pelvis CT Angio Abdomen and Pelvis INDICATION: Hx of Present Illness: rectal and penile bleeding; Reason: Other:; GI bleed; Clinical Question(s): Other:; Intestinal Bleeding , Other: COMPARISON: None. TECHNIQUE: Unenhanced axial images were obtained from diaphragm through the pelvis before, during (arterial) and after (portal venous) the intravenous administration of iodinated contrast. 100 cc of Omnipaque 300 was administered intravenously. Sagittal and coronal maximum intensity projection (MIP) images were reconstructed and rendered in both arterial and venous phases. Weight-based protocol using automatic tube modulation was used to optimize exposure parameters. RADIATION DOSE PARAMETERS: CTDIvol Body: 9.52 mGy, DLP Body: 1566 mGy*cm. VASCULAR FINDINGS: No evidence of active GI bleeding. There are heavy atherosclerotic calcifications. Abdominal aorta: No aortic aneurysm or dissection. Celiac axis: Mild stenosis at its origin. Superior mesenteric artery: Mild stenosis at its origin. Right renal artery: Moderate stenosis at its origin. Left renal artery: Moderate stenosis at its origin. Inferior mesenteric artery: Patent. Right common iliac artery: Patent. Right internal iliac artery: Patent. Right external iliac artery: Patent. Right common femoral artery: Patent. Visualized right superficial and deep femoral arteries: Superficial femoral artery is occluded. Thefemoral artery is patent. Left common iliac artery: Patent. Left internal iliac artery: Occluded. Left external iliac artery: Patent. Left common femoral artery: Patent. Visualized left superficial and deep femoral arteries: Patent. IVC and hepatic veins: Patent. Portal vein: Patent. Splenic vein: Patent. Inferior mesenteric vein: Patent. Iliac and femoral veins: Patent. NONVASCULAR FINDINGS: Visualized Chest: Small bilateral pleural effusions and adjacent atelectasis or scarring. Mild bronchiectasis in lower lobes. Partially imaged mild cardiomegaly. No pericardial effusion. Diaphragm: Normal. Liver: Cirrhotic liver morphology. A subcentimeter hypodensity in segment 4A is too small to characterize by CT. Gallbladder: Gallbladder is underdistended. There is cholelithiasis and diffuse gallbladder wall edema.. Bile ducts: No biliary ductal dilation. Spleen: Splenomegaly measuring 13.6 cm AP with calcifications in the splenic capsule. Pancreas: Normal. Adrenal glands: Normal. Kidneys and ureters: Atrophied kidneys with multiple stones in the calyces and renal pelvises including a 1.3 cm stone in the left UPJ and cluster of subcentimeter stones in the right UPJ. The ureters are not dilated. No evidence of ureteral stone. Bladder: Decompressed and appears diffusely thick-walled with perivesical fat stranding. Reproductive organs: Unremarkable. Stomach, small bowel, and large bowel: No abnormal wall thickening or distention. There are a few sigmoid diverticuli without evidence of acute diverticulitis. Appendix: Normal. Peritoneum and retroperitoneum: No ascites or pneumoperitoneum. No omental or mesenteric lesions. Lymph nodes: No enlarged lymph nodes. Abdominal and pelvic wall: Unremarkable. Bones: No acute abnormality. Multilevel degenerative disc disease throughout the spine. Increased density of the visualized skeleton, likely due to renal osteodystrophy. IMPRESSION: 1. No evidence of active GI bleed. 2. Cirrhotic liver and splenomegaly. 3. Atrophied kidneys with multiple stones in the calyces and renal pelvises. 4. Findings suggesting cystitis. 5. Cholelithiasis and diffuse gallbladder wall edema, most likely secondary to underlying hepatocellular disease given under distended lumen. 6. 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 7. Trace pleural effusions. 8. Additional incidental findings as detailed above. A critical result message ([place]) has been communicated via the [employer] system on 10/30/2022 7:37 PM, Message ID [id number]. WSN: [id number] Ordering Physician: Ellis Clemens Dictated By: Becca Wayne MD Dictated Date/Time: 10/30/22 7:37 pm Reviewed By: Becca Wayne MD Signed By: Becca Wayne MD Signed Date/Time: 10/30/22 7:37 pm Transcribed By: WILFREDO Transcribed Date/Time: 10/30/22 7:15 pm * Exam Date Time Procedure Performing Provider Status 10/30/22 4:48 PM Chest Portable Monet Chiang; Auth (V erified) Notes: (Chest Portable) Reason For Exam: Cough RESULT: Chest Portable Chest Portable performed upright at 4:43 PM HX OF PRESENT ILLNESS: Rectal and penile bleeding COMPARISON: 10/14/2022 and multiple priors. FINDINGS: LINES AND TUBES: Multiple wires overlie the chest. LUNGS AND PLEURA: Marked improvement in bilateral pulmonary vascular congestion/edema, still persistent at the bases. Trace bilateral pleural effusions, larger on the right No pneumothorax. HEART, MEDIASTINUM AND JOSELYN: Heart is normal in size. Normal mediastinal and hilar contour. BONES AND SOFT TISSUES: No acute abnormality. Left subclavian vascular stent. Mild bilateral glenohumeral joint degenerative changes. Sternotomy wires. IMPRESSION: Marked improvement in bilateral pulmonary congestion/edema, still persistent at the bases, with trace bilateral pleural effusions. I have personally reviewed the images and I agree with this report. WSN: [id number] Ordering Physician: Ellis Clemens Dictated By: Sue Sahni MD Dictated Date/Time: 10/30/22 5:01 pm Reviewed By: Maura Dos Santos MD Signed By: Maura Dos Santos MD Signed Date/Time: 10/30/22 5:06 pm Transcribed By: WILFREDO Transcribed Date/Time: 10/30/22 4:54 pm Vital Signs Most recent to oldest [Reference Range]: 1 2 3 Height 167.64 cm (11/05/22 10:12 AM) 167.64 cm (11/05/22 7:21 AM) 167.64 cm (11/05/22 3:32 AM) Weight 51.9 kg (11/05/22 5:26 AM) 55.6 kg (11/04/22 5:16 AM) 56.9 kg (11/03/22 5:53 PM) Oxygen Saturation [94-100 %] 100 % (11/05/22 10:12 AM) 100 % (11/05/22 7:21 AM) 97 % (11/05/22 3:32 AM) Pulse Rate [55-90 bpm] 66 bpm (11/05/22 10:12 AM) 57 bpm (11/05/22 7:21 AM) 59 bpm (11/05/22 3:32 AM) Body Mass Index [18.5-24.99 kg/m2] 20.25 kg/m2 (11/03/22 10:33 AM) 19.89 kg/m2 (11/01/22 2:41 PM) Blood Pressure [90-138/55-84 mm Hg] 134/61mm Hg (11/05/22 10:12 AM) 138/57mm Hg (11/05/22 8:30 AM) 138/57mm Hg (11/05/22 7:21 AM) Respiratory Rate [16-30 br/min] 18 br/min (11/05/22 10:12 AM) 18 br/min (11/05/22 8:30 AM) 18 br/min (11/05/22 8:29 AM) Temperature [96.8-100.4 DegF] 97.9 DegF (11/05/22 10:12 AM) 97.9 DegF (11/05/22 7:21 AM) 98.3 DegF (11/05/22 3:32 AM) Liters per Minute 3 L/min (11/05/22 10:12 AM) 3 L/min (11/05/22 7:21 AM) 3 L/min (11/04/22 11:25 PM) Mode of Delivery (Oxygen) Nasal cannula (11/05/22 10:12 AM) Nasal cannula (11/05/22 7:21 AM) Room air (11/05/22 3:32 AM) Blood pressure sites Arm, left (11/05/22 10:12 AM) Arm, left (11/05/22 7:21 AM) Arm, right (11/05/22 3:32 AM) Temperature Route Oral (11/05/22 10:12 AM) Oral (11/05/22 7:21 AM) Oral (11/05/22 3:32 AM) Dry Weight 55.9 kg (11/01/22 2:41 PM) 63 kg (10/30/22 3:22 PM) Weight Obtained Via Bed scale (11/05/22 5:26 AM) Bed scale (11/04/22 5:16 AM) Bed scale (11/03/22 5:53 PM) Social History Social History Type Response Smoking Status Former smoker, quit more than 30 days ago; Other: Quit 20 years ago, smoked for 30 years 1.5 ppd; entered on: 06/30/22 Sex History and physical note * Angel Lopez MD: PERFORM, SIGN, VERIFY Event Display: History and Physical Hospital Authored Date: [id number] Patient: SARWAT SMALL Age: 67 years Sex: Male : 1955 Associated Diagnoses: None Author: Angel Lopez MD Admission Information Consultation requested by: Hospitalist team Consulted physician: Dr. Workman Reason for consultation: Occluded Left internal iliac and superficial Femoral A. in the setting of remote AKAs History of Present Illness Patient is a 67-year-old male with a history of gave syndrome, ESRD on hemodialysis, bilateral AKA's, diabetes, CAD status post CABG who presented to the emergency department with symptoms of fatiguegeneralized weakness melena and penile bleeding. Patient reports that he has ongoing bleeding secondary to his gave syndrome and his initial work-up was significant for hemoglobin of 5, he was currently being transfused while still in the emergency department. As part of his work-up to assess location of his GI bleed he had a CT abdomen pelvis which incidentally showed an occluded left internal iliac as well as a occluded superficial femoral artery on the left. Based on this CT finding a vascular surgery consultation was placed. On assessment patient was resting comfortably did not have any complaints with of pain or discomfort within his pelvis or his bilateral AKA's he denied any fevers chills headache dizziness nausea vomiting chest pain or shortness of breath only induced having ongoing weakness and lethargy secondary to his low hemoglobin. Patient stated that the AKA's took place at outside hospital, and was secondary to his diabetes, and vascular disease. Past Medical History Problem list All Problems Anemia of chronic disease / SNOMED CT 976022826 / Confirmed COPD (chronic obstructive pulmonary disease) / SNOMED CT 77435789 / Confirmed Coronary artery disease / SNOMED CT 48006719 / Confirmed Diabetes mellitus / SNOMED CT 902985524 / Confirmed ESRD on dialysis / SNOMED CT 038866994 / Provisional Gastritis / SNOMED CT 6004348 Hepatitis C, chronic / SNOMED CT 378856989 / Confirmed Hyperlipidemia / SNOMED CT 25065158 / Confirmed Hypertension / SNOMED CT 8986501509 / Confirmed Hypothyroidism / SNOMED CT 34810702 / Confirmed Hypothyroidism / SNOMED CT 10445469 / Confirmed Peripheral vascular disease / SNOMED CT 0507250341 / Confirmed Pulmonary edema / SNOMED CT 94128006 / Confirmed Respiratory failure, chronic / SNOMED CT 40577330 / Confirmed TACO (transfusion associated circulatory overload) / SNOMED CT 45825217 / Confirmed Patient at risk for Transfusion-Associated Circulatory Overload (TACO). The use of slow infusion rates, the administration of lino-transfusion diuretics where not clinically contraindicated, and/or the transfusion of split units of PRBCs should be considered in any future hemotherapy interventions.Consult Transfusion Medicine Services if any questions. Inactive: Severe obesity / SNOMED CT 3420416711 select into nl: where @patientid:1 = @patientid:1 detail ProblemRequest->problem[1].onset_dt_tm = cnvtdatetime(curdate,curtime3) ekssub- >mod = 'Problem added by Discern Expert' go * Surgical History Procedure/Surgical Profile Right Upper Extremity AV Fistula (305326928). Above knee amputation (716492735). Social History Social History Alcohol Details: Use: Never. Substance Abuse Details: Use: Never. Tobacco Details: Use: Former smoker, quit more than 30 days ago. Other: Quit 20 years ago, smoked for 30 years 1.5 ppd. . Family History Family History Profile Mother Cancer Father Heart disease Diabetes mellitus Heart attack Stroke Review of Systems Negative: Constitutional, Eye, Skin, Head/Neck, ENMT, Respiratory, Cardio, Gastrointestinal, Genitourinary, Endocrine, Muscoloskeletal, Immunologic, Hematologic, Lymphatic, Neurologic, Psych reviewedand negative except as noted in HPI. Physical Examination Vital Signs Vitals : VITALS 10/31/2022 3:27 EST Early Warning Score 9.00 10/31/2022 3:27 EST Pulse Rate 76 bpm Respiratory Rate 17 br/min Systolic Blood Pressure 204 mm Hg H Diastolic Blood Pressure 74 mm Hg Blood pressure sites Arm, left Pulse Pressure 130 mm Hg Oxygen Saturation 99 % Liters per Minute 2 L/min Mode of Delivery (Oxygen) Nasal cannula . ??Physical Exam: Gen: No Acute Distress, Awake and Conversant Neuro: Alert and Oriented x 3 Head: Normocephalic, Atraumatic Eyes: Non-icteric, No conjunctival injection Cardiac: Regular rate and rhythm Resp: Even and unlabored breathing, no wheezing Abdomen: soft, non-distended?no rebound tenderness or guarding, non tender to palpation Ext: L AKA's with well-healed incisions warm, well perfused, and nontender Skin: no rashes, warm and well perfused Results Review 7 day results Labs & Documents Laboratory : LABORATORY 10/30/2022 16:38 EST WBC 2.6 k/mm3 L RBC 1.65 m/mm3 L Hgb 5.0 Gm/dL C Hct 15.2 % C MCV 92.1 femtoliters MCH 30.3 pg MCHC 32.9 g/dL L Platelet Count 70 k/mm3 L RDW-SD 55.0 femtoliters H MPV 11.1 femtoliters Nucleated RBC (Automated) 0.0 #/100 WBC'S Abs. NRBC 0.0 k/mm3 Abs. Neut 1.7 k/mm3 Abs. Lymph 0.5 k/mm3 L Abs. Nobles 0.2 k/mm3 L Abs. Eo 0.1 k/mm3 Abs. Baso 0.0 k/mm3 Neut % 68.3 % Lymph % 20.4 % Nobles % 7.8 % Eos % 2.7 % Baso % 0.4 % Imm Gran 0.4 % Abs. Imm Gran 0.0 k/mm3 INR 1.3 H Protime (PT) 13.5 seconds H APTT 31.4 seconds Sodium 142 mmol/L Potassium 3.8 mmol/L Chloride 102 mmol/L Bicarbonate Level 32 mmol/L H Anion Gap 8 Glucose Level 78 mg/dL BUN 23 mg/dL Creatinine-Blood 3.8 mg/dL H Estimated GFR Creatinine 16 ML/MIN/1.73 M2 Calcium 8.6 mg/dL Magnesium 1.6 mg/dL Protein, Total 6.4 Gm/dL Albumin 4.0 Gm/dL AG Ratio 1.7 Alkaline Phosphatase 153 units/L H AST (SGOT) 17 units/L ALT (SGPT) 9 units/L Bilirubin, Total 0.4 mg/dL Nt-Probnp 31,905 pg/mL H High Sensitivity Troponin (HSTnT) 143 ng/L C RESULT: CT Angio Abdomen and Pelvis CT Angio Abdomen and Pelvis INDICATION: Hx of Present Illness: rectal and penile bleeding; Reason: Other:; GI bleed; Clinical Question(s): Other:; Intestinal Bleeding , Other: COMPARISON: None. TECHNIQUE: Unenhanced axial images were obtained from diaphragm through the pelvis before, during (arterial) and after (portal venous) the intravenous administration of iodinated contrast. 100 cc of Omnipaque 300 was administered intravenously. Sagittal and coronal maximum intensity projection (MIP) images were reconstructed and rendered in both arterial and venous phases. Weight-based protocol using automatic tube modulation was used to optimize exposure parameters. RADIATION DOSE PARAMETERS: CTDIvol Body: 9.52 mGy, DLP Body: 1566 mGy*cm. VASCULAR FINDINGS: No evidence of active GI bleeding. There are heavy atherosclerotic calcifications. Abdominal aorta: No aortic aneurysm or dissection. Celiac axis: Mild stenosis at its origin. Superior mesenteric artery: Mild stenosis at its origin. Right renal artery: Moderate stenosis at its origin. Left renal artery: Moderate stenosis at its origin. Inferior mesenteric artery: Patent. Right common iliac artery: Patent. Right internal iliac artery: Patent. Right external iliac artery: Patent. Right common femoral artery: Patent. Visualized right superficial and deep femoral arteries: Superficial femoral artery is occluded. Thefemoral artery is patent. Left common iliac artery: Patent. Left internal iliac artery: Occluded. Left external iliac artery: Patent. Left common femoral artery: Patent. Visualized left superficial and deep femoral arteries: Patent. IVC and hepatic veins: Patent. Portal vein: Patent. Splenic vein: Patent. Inferior mesenteric vein: Patent. Iliac and femoral veins: Patent. NONVASCULAR FINDINGS: Visualized Chest: Small bilateral pleural effusions and adjacent atelectasis or scarring. Mild bronchiectasis in lower lobes. Partially imaged mild cardiomegaly. No pericardial effusion. Diaphragm: Normal. Liver: Cirrhotic liver morphology. A subcentimeter hypodensity in segment 4A is too small to characterize by CT. Gallbladder: Gallbladder is underdistended. There is cholelithiasis and diffuse gallbladder wall edema.. Bile ducts: No biliary ductal dilation. Spleen: Splenomegaly measuring 13.6 cm AP with calcifications in the splenic capsule. Pancreas: Normal. Adrenal glands: Normal. Kidneys and ureters: Atrophied kidneys with multiple stones in the calyces and renal pelvises including a 1.3 cm stone in the left UPJ and cluster of subcentimeter stones in the right UPJ. The ureters are not dilated. No evidence of ureteral stone. Bladder: Decompressed and appears diffusely thick-walled with perivesical fat stranding. Reproductive organs: Unremarkable. Stomach, small bowel, and large bowel: No abnormal wall thickening or distention. There are a few sigmoid diverticuli without evidence of acute diverticulitis. Appendix: Normal. Peritoneum and retroperitoneum: No ascites or pneumoperitoneum. No omental or mesenteric lesions. Lymph nodes: No enlarged lymph nodes. Abdominal and pelvic wall: Unremarkable. Bones: No acute abnormality. Multilevel degenerative disc disease throughout the spine. Increased density of the visualized skeleton, likely due to renal osteodystrophy. IMPRESSION: 1. No evidence of active GI bleed. 2. Cirrhotic liver and splenomegaly. 3. Atrophied kidneys with multiple stones in the calyces and renal pelvises. 4. Findings suggesting cystitis. 5. Cholelithiasis and diffuse gallbladder wall edema, most likely secondary to underlying hepatocellular disease given under distended lumen. 6. 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 7. Trace pleural effusions. 8. Additional incidental findings as detailed above. A critical result message ([place]) has been communicated via the [employer] system on 10/30/2022 7:37 PM, Message ID [id number]. WSN: [id number] Ordering Physician: Ellis Clemens Signature Line Dictated By: Becca Wayne MD Dictated Date/Time: 10/30/22 7:37 pm Reviewed By: Becca Wayne MD Signed By: Becca Wayne MD Signed Date/Time: 10/30/22 7:37 pm Transcribed By: WILFREDO Transcribed Date/Time: 10/30/22 7:[address] Angio Abdomen and Pelvis This document has an image Impression and Plan Patient is a 67-year-old male with a history of gave syndrome, ESRD on hemodialysis, bilateral AKA's, diabetes, CAD status post CABG who presented to the emergency department with symptoms of fatiguegeneralized weakness melena and penile bleeding. Patient reports that he has ongoing bleeding secondary to his gave syndrome and his initial work-up was significant for hemoglobin of 5, he was currently being transfused while still in the emergency department. As part of his work-up to assess location of his GI bleed he had a CT abdomen pelvis which incidentally showed an occluded left internal iliac as well as a occluded superficial femoral artery on the left. As the patient has no symptoms of ischemic changes despite the occlusions he more likely has adequate collateral flow, additionally in the setting of his severe anemia and bleeding disorder we would not recommend any form of anticoagulant therapy thus no intervention is recommended. Vascular surgery to sign off Plan/recommendations ??? No acute surgical intervention indicated ??? With an anticoagulant therapy in the setting of his ongoing bleeding disorder ??? As patient is asymptomatic with no evidence of ischemic changes per intervention. ??? Vascular surgery to sign off With questions please reach out to vascular surgery service This patient was discussed with Dr. Workman Admission evaluation note * Mehul ROJAS, Laila Blue: MODIFY, MODIFY, MODIFY, MODIFY, MODIFY, MODIFY, PERFORM Event Display: Admission Note Authored Date: [id number] Patient: ??SARWAT SMALL ? Age:??67 Years?Sex:??Male?:??1955?? Chief Complaint/Reason for Consultation low h/h, rectal bleeding Fatigue, rectal and penile bleeding History of Present Illness Mr. Small is a 67-year-old gentleman with a history of GAVE, ESRD, bilateral AKAs, CAD s/p CABG, and COPD on 3L home O2 who presents to the ER with fatigue, generalized weakness, melena and penile bleeding. ?? States he had brief episodes of sharp chest pain this morning prior to dialysis. Went to dialysis where he continued having intermittent sharp chest pain nonradiating and unlike the pain he had with his prior [place], no associated nausea/vomiting/sweating. Went for dialysis this morning. He also noticed 1 episode of black tarry stool this morning which was new for him, as well as an episode of blood draining from his penis.??Denies trauma to penis, no new sexual partners. Does not make urine at baseline due to ESRD.?After dialysis he felt significantly fatigued, and figured his Hb was probablylow as he felt similar to prior episodes of significant anemia, hence he presented to ER. Has a history of multiple blood transfusion in the past due to significant anemia from GAVE. He previously followed up with [facility]??but has not in years and his last endoscopy/colonoscopy was several months ago for GI bleed Denies fevers chills, nausea, vomiting, diarrhea, constipation, headache, vision changes, numbness or tingling of extremities. Does endorse multiple episodes of intermittent abdominal pain over the past year, including at least 2 severe episodes prompting him to go to an ER. ?? On arrival to the ER his vitals were HR 68, BP 199/66, RR 18, SPO2 100% on 2 L NC.?? Labs showed WBC 2.6, Hb 5 (baseline 8.9), platelets 70, MCV 92, INR 1.3, Cr 3.8, ALP 153, AST 17, ALT 9, NT [id number], troponin 143 peaked.?? EKG showed normal sinus rhythm, no ST or T wave changes.?? Chest x-ray shows mild bilateral pleural effusions, no focal consolidation, mild pulmonary venous congestion,sternotomy wires.?? CT angio abdomen pelvis shows no evidence of active GI bleed, cirrhotic liver and splenomegaly, atrophic kidneys with multiple stones in the calyces and renal pelvises, cholelithiasis and diffuse gallbladder wall edema, occluded left internal iliac artery and right superficial femoral artery. ?? FH: [place] in father Social: From [facility] [place] [facility]. 45 pack year smoker quit 20 years ago. Hx of heroin use, noIV drug use or cocaine use. Smokes marijuana. No alcohol use. Review of Systems All systems reviewed and negative except as indicated in HPI. Objective Vital Signs?? Temperature: 97.6 DegF (10/30/22 15:22:00) Temperature Route: Oral (10/30/22 15:22:00) Pulse Rate: 68 bpm (10/30/22 15:22:00) Respiratory Rate: 18 br/min (10/30/22 15:22:00) Systolic Blood Pressure:??199 mm Hg??High (10/30/22 15:22:00) Diastolic Blood Pressure: 66 mm Hg (10/30/22 15:22:00) Blood pressure sites: Arm, left (10/30/22 15:22:00) Mean Arterial Pressure: 110 mm Hg (10/30/22 15:22:00) Pulse Pressure: 133 mm Hg (10/30/22 15:22:00) Oxygen Saturation: 100 % (10/30/22 15:22:00) Liters per Minute: 2 L/min (10/30/22 15:22:00) Mode of Delivery (Oxygen): Nasal cannula (10/30/22 15:22:00) ? Intake/Output? No Data Available ? Physical Exam Constitutional: Alert, in no acute distress. Head EENT: Extraocular muscle movement intact.??Moist mucous membranes.?? Neck: Supple. No JVD. Respiratory: Clear to auscultation. No wheezing or crackles. No use of accessory muscles. Cardiovascular: S1S2 regular. No murmurs, rubs or gallops. Gastrointestinal: Abdomen soft, non-tender, non-distended. Normal bowel sounds. Genitourinary: No CVA tenderness. Extremities: Bilateral AKA, stumps warm and well perfused Neurologic: AAOx3, Speech normal. No focal neurological deficits. Skin: No rash. Psychiatric: Normal mood and affect Assessment/Plan 67-year-old gentleman with a history of GAVE, ESRD, bilateral AKAs, CAD s/p CABG, who presents to the ER with fatigue, generalized weakness, melena and penile bleeding. ?? #Acute on chronic normocytic anemia #GI bleed Hb 5 on admission, previously 8.9 in Sep 2022 No active bleed on CTA abdomen/pelvis Likely secondary to upper GI bleeding from GAVE vs penile bleeding vs anemia of chronic disease contributing - GI consulted - blood transfusion ordered by ED, he is receiving 1u pRBC split into 3 bags to reduce risk of TACOgiven his history of TACO - patient refusing third bag of blood due to feeling like he is volume overloaded, is at his baseline 3L O2 with good SpO2, counseled that his anemia could also be contributing to dyspnea - 2 large bore IVs - pantoprazole - type and screen done - fecal occult test ?? #Pancytopenia #Splenomegaly Anemia likely 2/2 GAVE, ESRD, penile bleeding, chronic disease Other ddx: myelodysplastic syndrome vs malignancy eg leukemia/lymphoma vs IPP vs separate processes(bleeding, splenic sequestration) - management of anemia as above - thrombocytopenia is chronic, possibly 2/2 splenic sequestration vs IPP, continue to monitor - consider hematology evaluation - iron levels ordered ?? #ESRD HD Thursday -??Nephrology consulted for continuing dialysis - slow infusion of blood products given history of TACO and risk of volume overload ?? #Penile bleeding #Nephrolithiasis Multiple stones in the calyces and renal pelvis 1.3 cm stone in the left UPJ with multiple subcentimeter stones in right UPJ Ddx: Unlikely hematuria as patient reports being anuric 2/2 ESRD, possibly trauma vs??2/2 stones vsbladder ca (former smoker) -??Nephrology consult placed - if patient develops active high volume penile bleeding will need urology consult to consider bladder irrigation - currently no penile bleeding since arrival to ER ?? 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 consulted vascular surgery, unclear if anything can/should be done for occlusions given that patient has had bilateral AKAs and no active ischemia ?? #COPD - continue home O2 ?? #CAD s/p CABG, done years ago - holding aspirin in setting of bleed ?? #HTN Uncontrolled with SBP 215 - resume home clonidine to prevent rebound hypertension - restarted carvedilol 25mg and isosorbide mononitrate 60mg, and nifedipine 60mg - if blood pressures remain uncontrolled with despite initiation of PO meds will need to start nicardipine drip??to prevent flash pulmonary edema ?? #HLD - continue statin ?? #Hypothyroidism - continue home levothyroxine 200 mcg ?? Code status: full DVT ppx:?? no AC due to bleeding Diet: renal Dispo: floors ?? Total Visit Time: I personally spent a total of??80 minutes, including both [id number] and kwj-moth-ag-face time onthe date of the encounter, addressing the above diagnoses. Activities performed in this time include chart review, obtaining / reviewing history, performing amedically necessary evaluation, documentation and??counseling??. ?? Laila Carver MD Hospitalist Histories Past Medical History/Problem List Active Problems??(15) Anemia of chronic disease COPD (chronic obstructive pulmonary disease) Coronary artery [...] ago, smoked for 30years 1.5 ppd. ? Family History Mother: Cancer Father: Diabetes mellitus; Heart attack; Heart disease; Stroke ? Medications Home Medications Acetaminophen (acetaminophen 325 mg oral tablet)?650?Milligram?2?tablet?By Mouth?Every 6 hours?as needed?as needed for fever/pain Aspirin (aspirin 81 mg oral tablet, chewable)?81?Milligram?1?tablet?By Mouth?Daily Atorvastatin (atorvastatin 80 mg oral tablet)?1?tab(s)?80?Milligram?By Mouth?Daily at bedtime Bisacodyl (Dulcolax 10 mg rectal suppository)?1?suppository(ies)?10?Milligram?Rectall y?Daily?as needed?as needed for constipation Brimonidine Ophthalmic (brimonidine 0.2% ophthalmic solution)?2?Drops?Eyes, Both?2 times a day Carvedilol (carvedilol 25 mg oral tablet)?25?Milligram?1?tablet?By Mouth?2 times a day Cholecalciferol (cholecalciferol 50,000 intl units oral capsule)?1?capsule?1,250?Microgram?By Mouth?Every 30 days?on the Clonidine (cloNIDine 0.1 mg oral tablet)?0.2?Milligram?2?tablet?By Mouth?3 times a day?Hold for systolic BP<100 mm Hg Docusate (docusate sodium 100 mg oral capsule)?100?Milligram?1?capsule?By Mouth?2times a day Epoetin Jose?1?Milliliter?20,000?unit(s)?IV Push Slowly?Every Thursday, Thursday and Thursday?(NOT ON CURRENT PAPER CHART) Gabapentin (gabapentin 100 mg oral capsule)?100?Milligram?1?capsule?By Mouth?Daily Isosorbide Mononitrate (Imdur ER)?60?Milligram?By Mouth?Daily?Hold for systolic BP<100 mm Hg Levothyroxine (levothyroxine 200 mcg (0.2 mg) oral capsule)?1?capsule?200?Microgram?By Mouth?Daily Lidocaine?Every Thursday, Thursday and Thursday?NOT ON PAPER CHART Multivitamin (Vitamin B Complex oral tablet, extended release)?1?tab(s)?By Mouth?Daily nalOXONE (Narcan Inj)?1?Milliliter?Intramuscular?Once?as needed?as needed nalOXONE (Narcan 4 mg/0.1 mL nasal spray)?4?Milligram?Naris, Left?Once?as needed?as needed NIFEdipine (NIFEdipine 60 mg oral tablet, extended release)?60?Milligram?1?tablet?ByMouth?2 times a day?Hold for systolic BP<100 mm Hg Pantoprazole (pantoprazole 40 mg oral delayed release tablet)?1?tab(s)?40?Milligram?By Mouth?2 times a day Sucralfate (sucralfate 1 gm oral tablet)?1?gram?1?tablet?By Mouth?2 times a day?before meals ? Inpatient Medications Medications (19) Active SCHEDULED: (10) Atorvastatin 80 mg Tablet (atorvastatin 80 mg oral tablet) ??80 mg, By Mouth, Daily at bedtime Carvedilol 25 mg Tablet (carvedilol 25 mg oral tablet) ??25 mg, By Mouth, 2 times a day Clonidine 0.1 mg Tablet (cloNIDine 0.1 mg oral tablet) ??0.2 mg, By Mouth, 3 times a day Gabapentin 100 mg Capsule (gabapentin 100 mg oral capsule) ??100 mg, By Mouth, Daily hydrALAZINE 20 mg/mL Inj (hydrALAZINE Inj) ??20 mg 1 mL, IV Push Slowly, Once Isosorbide Mononitrate 30 mg ER Tablet (isosorbide mononitrate 30 mg oral tablet, extended release)??60 mg, By Mouth, Daily Levothyroxine 100 mcg Tablet (levothyroxine 0.1 mg oral tablet) ??200 mcg, By Mouth, Daily NaCl 0.9% Flush 3ml (NaCL 0.9% Flush) ??3 mL, IV Push, Every 8 hours Pantoprazole 40 mg EC Tablet (pantoprazole 40 mg oral delayed release tablet) ??40 mg, By Mouth, 2 times a day Sucralfate 1 Gm Tablet (sucralfate 1 gm oral tablet) ??1 Gm, By Mouth, 2 times a day CONTINUOUS: (0) PRN: (9) Acetaminophen 325 mg Tablet (Acetaminophen Tablet) ??650 mg, By Mouth, Every 4 hours Bisacodyl 10 mg Suppository (Dulcolax Supp) ??10 mg 1 supp, Rectally, Daily Dextromethorphan-Guaifenesin 20 mg-200 mg/10 mL Liqu UD (Robitussin DM Liquid) ??10 mL, By Mouth, Every 4 hours Melatonin 3 mg Tablet (Melatonin Tablet) ??3 mg, By Mouth, Daily at bedtime NaCl 0.9% Flush 3ml (NaCL 0.9% Flush) ??3 mL, IV Push, Every 8 hours OxyCODONE 5 mg IR Tablet (oxyCODONE 5 mg oral tablet) ??5 mg, By Mouth, Every 6 hours Polyethylene Glycol 17 Gm Powder (MiraLax Powder) ??17 Gm 1 pack/packet, By Mouth, Daily Senna 8.6 mg / Docusate 50 mg tablet (Docusate/Senna Tablet) ??1 tablet, By Mouth, 2 times a day Simethicone 80 mg Chewable Tablet (Simethicone Tablet) ??80 mg, Chew, 3 times a day ? Results Recent Labs BLOOD BANK Blood Type O Positive ()?? 10/30/2022 16:16 Antibody Screen Positive ()?? 10/30/2022 16:16 RBC Unit ID [id number] ()?? 10/30/2022 19:26 RBC Available XM ()?? 10/30/2022 19:26 ?? BLOOD COUNT & DIFF WBC 2.6 k/mm3 (Low)?? 10/30/2022 16:38 RBC 1.65 m/mm3 (Low)?? 10/30/2022 16:38 Hgb 5.0 Gm/dL (Critical)?? 10/30/2022 16:38 Hct 15.2 % (Critical)?? 10/30/2022 16:38 MCV 92.1 femtoliters ()?? 10/30/2022 16:38 MCH 30.3 pg ()?? 10/30/2022 16:38 MCHC 32.9 g/dL (Low)?? 10/30/2022 16:38 Platelet Count 70 k/mm3 (Low)?? 10/30/2022 16:38 RDW-SD 55.0 femtoliters (High)?? 10/30/2022 16:38 MPV 11.1 femtoliters ()?? 10/30/2022 16:38 Nucleated RBC (Automated) 0.0 #/100 WBC'S ()?? 10/30/2022 16:38 Abs. NRBC 0.0 k/mm3 ()?? 10/30/2022 16:38 Abs. Neut 1.7 k/mm3 ()?? 10/30/2022 16:38 Abs. Lymph 0.5 k/mm3 (Low)?? 10/30/2022 16:38 Abs. Nobles 0.2 k/mm3 (Low)?? 10/30/2022 16:38 Abs. Eo 0.1 k/mm3 ()?? 10/30/2022 16:38 Abs. Baso 0.0 k/mm3 ()?? 10/30/2022 16:38 Neut % 68.3 % ()?? 10/30/2022 16:38 Lymph % 20.4 % ()?? 10/30/2022 16:38 Nobles % 7.8 % ()?? 10/30/2022 16:38 Eos % 2.7 % ()?? 10/30/2022 16:38 Baso % 0.4 % ()?? 10/30/2022 16:38 Imm Gran 0.4 % ()?? 10/30/2022 16:38 Abs. Imm Gran 0.0 k/mm3 ()?? 10/30/2022 16:38 ?? CARDIAC Nt-Probnp 06192 pg/mL (High)?? 10/30/2022 16:38 High Sensitivity Troponin (HSTnT) 139 ng/L (Critical)?? 10/30/2022 19:02 ?? CHEM GENERAL Sodium 142 mmol/L ()?? 10/30/2022 16:38 Potassium 3.8 mmol/L ()?? 10/30/2022 16:38 Chloride 102 mmol/L ()?? 10/30/2022 16:38 Bicarbonate Level 32 mmol/L (High)?? 10/30/2022 16:38 Anion Gap 8 ()?? 10/30/2022 16:38 Glucose Level 78 mg/dL ()?? 10/30/2022 16:38 BUN 23 mg/dL ()?? 10/30/2022 16:38 Creatinine-Blood 3.8 mg/dL (High)?? 10/30/2022 16:38 Estimated GFR Creatinine 16 ML/MIN/1.73 M2 ()?? 10/30/2022 16:38 Calcium 8.6 mg/dL ()?? 10/30/2022 16:38 Magnesium 1.6 mg/dL ()?? 10/30/2022 16:38 Protein, Total 6.4 Gm/dL ()?? 10/30/2022 16:38 Albumin 4.0 Gm/dL ()?? 10/30/2022 16:38 AG Ratio 1.7 ()?? 10/30/2022 16:38 Alkaline Phosphatase 153 units/L (High)?? 10/30/2022 16:38 AST (SGOT) 17 units/L ()?? 10/30/2022 16:38 ALT (SGPT) 9 units/L ()?? 10/30/2022 16:38 Bilirubin, Total 0.4 mg/dL ()?? 10/30/2022 16:38 ?? COAG INR 1.3 (High)?? 10/30/2022 16:38 Protime (PT) 13.5 seconds (High)?? 10/30/2022 16:38 APTT 31.4 seconds ()?? 10/30/2022 16:38 ? Blood Glucose Trend Glucose Level: 78 mg/dL (10/30/22 16:38:00) ? CBC, CBC w/Diff?? CBC?? Differential?? WBC:??2.6 k/mm3??Low (16:38) Abs. Neut: 1.7 k/mm3 (16:38) RBC:??1.65 m/mm3??Low (16:38) Abs. Lymph:??0.5 k/mm3??Low (16:38) Hct:??15.2 %??Critical (16:38) Abs. Nobles:??0.2 k/mm3??Low (16:38) RDW-SD:??55 femtoliters??High (16:38) Abs. Eo: 0.1 k/mm3 (16:38) Nucleated RBC (Automated): 0 #/100 WBC'S (16:38) Abs. Baso: 0 k/mm3 (16:38) Abs. NRBC: 0 k/mm3 (16:38) Neut %: 68.3 % (16:38) ?? Lymph %: 20.4 % (16:38) ?? Nobles %: 7.8 % (16:38) ?? Eos %: 2.7 % (16:38) ?? Baso %: 0.4 % (16:38) ?? Imm Gran: 0.4 % (16:38) ?? Abs. Imm Gran: 0 k/mm3 (16:38) ? LFT Albumin: 4 Gm/dL (16:38) Alkaline Phosphatase:??153 units/L??High (16:38) ALT (SGPT): 9 units/L (16:38) AST (SGOT): 17 units/L (16:38) Bilirubin, Total: 0.4 mg/dL (16:38) Protime (PT):??13.5 seconds??High (16:38) ?? Urinalysis?? No qualifying data available. ?? Microbiology ?? COVID-19 (2019 Novel Coronavirus) PCR?? Collected?? Source: Nasal Body Site: Nose Collected Dt/Tm: 10/30/2022 20:49 Last Updated Dt/Tm: 10/30/2022 20:49 ? Blood Gases?? No qualifying data available. ?? EKG study * Event Display: EKG Authored Date: * Event Display: ECG 12-Lead Authored Date: Please click on pdf link to open report * Event Display: ECG 12-Lead Authored Date: Ventricular Rate: 68 BPM Atrial Rate: 68 BPM P-R Interval: 182 ms QRS Duration: 80 ms Q-T Interval: 416 ms QTC Calculation(Bazett): 442 ms P [place]: 69 degrees R [place]: 11 degrees T [place]: -10 degrees Sinus rhythm with Premature atrial complexes with Aberrant conduction Anterior infarct (cited on or before 14-OCT-2022) Abnormal ECG When compared with ECG of 14-OCT-2022 03:36, Aberrant conduction is now Present Questionable change in initial forces of Anteroseptal leads Nonspecific T wave abnormality has replaced inverted T waves in Inferior leads Confirmed by VIOLETTA ROJAS, [facility] ([id number]) on 11/05/2022 1:51:25 PM [place]: VIOLETTA ROJAS,[facility] Progress note * Raquel Ventura RN: PERFORM, MODIFY, SIGN, VERIFY Event Display: [facility] Authored Date: [id number] Patient: SARWAT SMALL Age: 67 years Sex: Male : 1955 Associated Diagnoses: None Author: Raquel Ventura RN Findings Evaluation A+Ox3. HR 57, carvedilol held per Dr. Espino. C/O 6/10 lower back pain, prn oxycodone and Tylenol administered. On 2L NC, reports SOB with exertion. Right AV fistula +/+. Anuric. Continent of bowel, last BM 11/04/22. Skin intact. Wheelchair bound at baseline, will reposition himself in bed. Please see [facility] for full assessment. Being dc to facility today. Transferred to s3 dc unit. Report called to receiving RN. . * Kirti ROJAS, Rudy I: SIGN Kirti ROJAS, Rudy I: SIGN, MODIFY Kirti ROJAS, Rudy Linda: MODIFY, VERIFY, PERFORM Tamara HOPE, Mary Ellen: PERFORM Event Display: Progress Note Hospital Authored Date: Patient: SARWAT SMALL Age: 67 years Sex: Male : 1955 Associated Diagnoses: None Author: Tamara HOPE, Mary Ellen Pt seen and examined; HD yesterday with 1.3L removed. Review of Systems Review of Systems Constitutional: no complaints. Respiratory: dyspnea improved, no shortness of breath. Cardiovascular: no orthopnea, no peripheral edema. Gastrointestinal: no abdominal pain. Physical Examination Vitals Vitals : VITAL SIGNS SECTION 11/05/2022 7:21 EST Early Warning Score 2.00 11/05/2022 7:21 EST Temperature 97.9 DegF Temperature Route Oral Pulse Rate 57 bpm Respiratory Rate 17 br/min Systolic Blood Pressure 138 mm Hg Diastolic Blood Pressure 57 mm Hg Blood pressure sites Arm, left Mean Arterial Pressure 84 mm Hg Pulse Pressure 81 mm Hg Oxygen Saturation 100 % Liters per Minute 3 L/min Mode of Delivery (Oxygen) Nasal cannula . General Appearance No apparent distress. HEENT Moist mucous membranes. Respiratory Lungs: CTA. Cardiac No murmur/gallop/rub. Rhythms: RRR. Abdomen/GI Soft. Non-tender. Extremities Normal. Neurologic Alert. Oriented x 3 . Impression and Plan Mr. Small is a 67-year-old male with a history of ESRD secondary to diabetic nephropathy who dialyzes on a T/T/S schedule at [facility] via a right upper extremity AV Fistula. His PMH is also notable for chronic hepatitis C, PVD, and gastric enteric vascular ectasia. He presented to [facility] on 10/30 with what appears to be a GI bleed as well as reported bleeding from his penis with findings of bilateral ureteric stones on imaging. 1. ESRD on HD - schedule: T/T/S at [facility] - access: RUE AV Fistula 2. Acute Blood Loss Anemia - from GI bleed with history of gastric enteric vascular ectasia - superimposed on anemia of ESRD 3. Bilateral UPJ Stones Plan - HD on T/T/S schedule while admitted - remainder of care per primary team Case discussed with Dr. Cotto. Thank you for allowing us to participate in your patient's care. * Rudy Cotto MD I: PERFORM Event Display: Progress Note Hospital Authored Date: I reviewed the patient's history, examined the patient, and confirmed the above findings as documented by the advanced practitioner. I personally formulated the essential elements of the assessment and plan noted above. Dr. Cotto * Leeann Brown RN: PERFORM, SIGN, VERIFY Event Display: Progress Note Hospital Authored Date: Patient: SARWAT SMALL Age: 67 years Sex: Male : 1955 Associated Diagnoses: None Author: Leeann Bronw RN Findings Problem Related to Alteration in Gastrointestinal : Alteration in Gastrointestinal Func/new 11/04/2022 9:00 EST Alteration in GI status Related to Diarrhea Goals & Outcomes, Gastrointestinal Establish a regular pattern of elimination for pt, Pt will achieve normal/improved fluid balance Interventions, Gastrointestinal Assess/monitor bowel pattern, bowel sounds, flatus, Assess/monitor number of bowel movements, Assess/monitor color, quantity, quality, consistency of stoo, Assess/monitor pt for nausea, vomiting, Assess/monitor blood loss BH Goals/Interventions, Gastrointestinal Yes Gastrointestinal, Problem Start 11/03/2022 17:05 Reviewed plan with, Gastrointestinal Patient Patient Progression, Gastrointestinal Pt progressing according to plan . Nursing Data Vital Signs : VITAL SIGNS SECTION 11/04/2022 15:26 EST Early Warning Score 10.00 C 11/04/2022 15:26 EST Temperature 98.3 DegF Temperature Route Oral Pulse Rate 65 bpm Respiratory Rate 18 br/min Systolic Blood Pressure 159 mm Hg H Diastolic Blood Pressure 59 mm Hg Blood pressure sites Arm, left Mean Arterial Pressure 92 mm Hg Pulse Pressure 100 mm Hg Oxygen Saturation 100 % Liters per Minute 2 L/min Mode of Delivery (Oxygen) Nasal cannula . Narrative/Incidental Patient returned from dialysis, A&Ox3 c/o back pain prn oxycodone given with +effect. 0.5 unit RBC ordered and given upon return tolerated well. Another Order was entered for 1/2 unit RBC, spoke with , was told not to give, she just wanted the 1/2 unit ordered this morning given. Patient did have a BM not blood noted, will continue to monitor.. Note * Meaghan Newberry RN: PERFORM Event Display: Discharge/Transfer Note Hospital Authored Date: Nursing Discharge Note Entered On: 11/05/2022 18:03 EST Performed On: 11/05/2022 18:00 EST by Meaghan Newberry RN Nursing Discharge Note 2 Discharge Time : 11/05/2022 13:05 EST Discharge Level of Care at Discharge : detention facility Discharge Nursing Homes/Rehab Facilities : [address] Patient Left Unit Via : Ambulance Patient Accompanied Off Unit with : Ambulance/Chair Van Personnel Handover Given to Transport Personnel : Yes DC Instructions Provided & Signed by Pt : No Patient Understands D/C Instructions : No Verbalized Understanding of D/C Plan By : Patient Patient Instructions Discharge Signed : No Instructions for Discharge Comments : paperwork completed with welfare case worker Did Pt have Specialty Bed or Wound Vac : No Meaghan Newberry RN - 11/05/2022 18:00 EST * Quinten Espino DO: PERFORM Event Display: Discharge/Transfer Note Hospital Authored Date: [id number] Patient: ??SARWAT SMALL ? Age:??67 Years?Sex:??Male?:??1955?? Patient Information Discharge Location: W3 Primary Care Physician: Ashley Byrne MD Admit Date/Time: 10/30/22 20:45 Discharge Date:??11/05/2022 10:10 Discharge Disposition Discharge Disposition: Group Home Facility/Rehab Discharge Diagnosis GI (gastrointestinal bleed) (K92.2) Pancytopenia (D61.818) Penile bleeding (N48.89) Coronary artery disease (I25.10) Hypothyroidism (E03.9) Hyperlipidemia (E78.5) ESRD on dialysis (N18.6) Bilateral nephrolithiasis (N20.0) Superficial femoral artery occlusion (I70.209) Anemia (D64.9) Anemia of chronic disease COPD (chronic obstructive pulmonary disease) Coronary artery disease ESRD on dialysis Hyperlipidemia Hypothyroidism Peripheral vascular disease Respiratory failure, chronic ?? _ Discharge Medications Acetaminophen (acetaminophen 325 mg oral tablet)?650?Milligram?2?tablet?By Mouth?Every 6 hours?as needed?as needed for fever/pain Atorvastatin (atorvastatin 80 mg oral tablet)?1?tab(s)?80?Milligram?By Mouth?Daily at bedtime Bisacodyl (Dulcolax 10 mg rectal suppository)?1?suppository(ies)?10?Milligram?Rectall y?Daily?as needed?as needed for constipation Brimonidine Ophthalmic (brimonidine 0.2% ophthalmic solution)?2?Drops?Eyes, Both?2 times a day Carvedilol (carvedilol 25 mg oral tablet)?25?Milligram?1?tablet?By Mouth?2 times a day Cholecalciferol (cholecalciferol 50,000 intl units oral capsule)?1?capsule?1,250?Microgram?By Mouth?Every 30 days?on the Clonidine (cloNIDine 0.1 mg oral tablet)?0.2?Milligram?2?tablet?By Mouth?3 times a day?Hold for systolic BP<100 mm Hg Docusate (docusate sodium 100 mg oral capsule)?100?Milligram?1?capsule?By Mouth?2times a day Epoetin Jose?1?Milliliter?20,000?unit(s)?IV Push Slowly?Every Thursday, Thursday and Thursday?(NOT ON CURRENT PAPER CHART) Ferrous Sulfate (ferrous sulfate 325 mg oral enteric coated tablet)?325?Milligram?By Mouth?3 times a day Gabapentin (gabapentin 100 mg oral capsule)?100?Milligram?1?capsule?By Mouth?Daily Isosorbide Mononitrate (Imdur ER)?60?Milligram?By Mouth?Daily?Hold for systolic BP<100 mm Hg Levothyroxine (levothyroxine 200 mcg (0.2 mg) oral capsule)?1?capsule?200?Microgram?By Mouth?Daily Lidocaine?Every Thursday, Thursday and Thursday?NOT ON PAPER CHART Multivitamin (Vitamin B Complex oral tablet, extended release)?1?tab(s)?By Mouth?Daily nalOXONE (Narcan Inj)?1?Milliliter?Intramuscular?Once?as needed?as needed nalOXONE (Narcan 4 mg/0.1 mL nasal spray)?4?Milligram?Naris, Left?Once?as needed?as needed NIFEdipine (NIFEdipine 60 mg oral tablet, extended release)?60?Milligram?1?tablet?ByMouth?2 times a day?Hold for systolic BP<100 mm Hg Pantoprazole (pantoprazole 40 mg oral delayed release tablet)?1?tab(s)?40?Milligram?By Mouth?2 times a day Sucralfate (sucralfate 1 gm oral tablet)?1?gram?1?tablet?By Mouth?2 times a day?before meals ? Hospital Course 67-year-old gentleman with a history of GAVE, ESRD, bilateral AKAs, CAD s/p CABG, who presents to the ER with fatigue, generalized weakness, melena and penile bleeding. ?? #Acute on chronic normocytic anemia #GI bleed Hb 5 on admission, previously 8.9 in Sep 2022 No active bleed on CTA abdomen/pelvis Likely secondary to upper GI bleeding from GAVE vs penile bleeding vs anemia of chronic disease contributing - GI consulted colonoscopy poor prep thus results inconclusive tolerating diet started on iron supplementation ?? #Pancytopenia #Splenomegaly Anemia likely 2/2 GAVE, ESRD, , chronic disease??liver cirrhosis - management of anemia as above - thrombocytopenia is chronic, possibly 2/2 splenic sequestration 2/7 drop?? in hb s/p?? 0.5 unit transfused s/p?? colonoscopy hgb improved now ?? #ESRD HD Thursday -??Nephrology consulted for continuing dialysis ? #Penile bleeding #Nephrolithiasis Multiple stones in the calyces and renal pelvis 1.3 cm stone in the left UPJ with multiple subcentimeter stones in right UPJ - currently no penile bleeding since arrival to ER ?? 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 consulted vascular surgery, unclear if anything can/should be done for occlusions given that patient has had bilateral AKAs and no active ischemia ?? #COPD - continue home O2 ?? #CAD s/p CABG, done years ago - holding aspirin in setting of bleed ? Objective Vital Signs?? Temperature: 97.9 DegF (11/05/22 07:21:00) Temperature Route: Oral (11/05/22 07:21:00) Pulse Rate: 57 bpm (11/05/22 07:21:00) Respiratory Rate: 18 br/min (11/05/22 08:30:00) Systolic Blood Pressure: 138 mm Hg (11/05/22 08:30:00) Diastolic Blood Pressure: 57 mm Hg (11/05/22 08:30:00) Blood pressure sites: Arm, left (11/05/22 07:21:00) Mean Arterial Pressure: 84 mm Hg (11/05/22 07:21:00) Pulse Pressure: 81 mm Hg (11/05/22 07:21:00) Oxygen Saturation: 100 % (11/05/22 07:21:00) Liters per Minute: 3 L/min (11/05/22 07:21:00) Mode of Delivery (Oxygen): Nasal cannula (11/05/22 07:21:00) Early Warning Score: 2 (11/05/22 08:31:03) ? . Physical Exam General:??NAD Head:??NCAT Eyes:??EOMI Ear, Nose and Throat:??MMM Respiratory:??CTA Cardiovascular:RRR Gastrointestinal:??soft nt nd Neurologic :alert and oriented ?? Surgical Procedures Colonoscopy/Gastroscopy (EGD) 11/03/2022 11:35 Consultants GI Pending Results Add On Lab Order ordered on 10/31/2022 Add On Lab Order ordered on 11/03/2022 Add On Lab Order ordered on 11/05/2022 COVID-19 Antigen POC ordered on 11/02/2022 Hemoglobin ordered on 11/05/2022 Transfuse RBCs ordered on 11/04/2022 Urinalysis w/hold for Urine Culture ordered on 10/30/2022 Follow-Up Appointments Added Follow Up ?Time Frame ?Comments Ashley Byrne MD?1 week: call to discuss follow up visit Home Health Face to Face ^HomeHealthFTF Results Discharge Labs BLOOD BANK Blood Type O Positive ()?? 11/02/2022 17:51 Antibody Screen Positive ()?? 11/02/2022 17:51 RBC Unit ID [id number] ()?? 11/04/2022 13:17 RBC Available XM ()?? 11/04/2022 13:17 ?? BLOOD COUNT & DIFF WBC 3.0 k/mm3 (Low)?? 11/03/2022 04:35 RBC 2.38 m/mm3 (Low)?? 11/03/2022 04:35 Hgb 7.4 Gm/dL (Low)?? 11/05/2022 04:42 Hct 22.8 % (Low)?? 11/05/2022 04:42 MCV 89.1 femtoliters ()?? 11/03/2022 04:35 MCH 30.7 pg ()?? 11/03/2022 04:35 MCHC 34.4 g/dL ()?? 11/03/2022 04:35 Platelet Count 77 k/mm3 (Low)?? 11/03/2022 04:35 RDW-SD 52.1 femtoliters (High)?? 11/03/2022 04:35 MPV 12.2 femtoliters ()?? 11/03/2022 04:35 Nucleated RBC (Automated) 0.0 #/100 WBC'S ()?? 11/03/2022 04:35 Abs. NRBC 0.0 k/mm3 ()?? 11/03/2022 04:35 Abs. Neut 1.9 k/mm3 ()?? 11/03/2022 04:35 Abs. Lymph 0.5 k/mm3 (Low)?? 11/03/2022 04:35 Abs. Nobles 0.4 k/mm3 ()?? 11/03/2022 04:35 Abs. Eo 0.1 k/mm3 ()?? 11/03/2022 04:35 Abs. Baso 0.0 k/mm3 ()?? 11/03/2022 04:35 Neut % 64.9 % ()?? 11/03/2022 04:35 Lymph % 18.2 % ()?? 11/03/2022 04:35 Nobles % 12.8 % (High)?? 11/03/2022 04:35 Eos % 2.4 % ()?? 11/03/2022 04:35 Baso % 0.7 % ()?? 11/03/2022 04:35 Imm Gran 1.0 % ()?? 11/03/2022 04:35 Abs. Imm Gran 0.0 k/mm3 ()?? 11/03/2022 04:35 ?? CARDIAC Nt-Probnp 05941 pg/mL (High)?? 10/30/2022 16:38 High Sensitivity Troponin (HSTnT) 139 ng/L (Critical)?? 10/30/2022 19:02 ?? CHEM GENERAL Sodium 134 mmol/L ()?? 11/03/2022 04:35 Potassium 4.7 mmol/L ()?? 11/03/2022 04:35 Chloride 91 mmol/L (Low)?? 11/03/2022 04:35 Bicarbonate Level 25 mmol/L ()?? 11/03/2022 04:35 Anion Gap 18 (High)?? 11/03/2022 04:35 Glucose Level 87 mg/dL ()?? 11/03/2022 04:35 BUN 47 mg/dL (High)?? 11/03/2022 04:35 Creatinine-Blood 7.9 mg/dL (High)?? 11/03/2022 04:35 Estimated GFR Creatinine 7 ML/MIN/1.73 M2 ()?? 11/03/2022 04:35 Calcium 8.4 mg/dL (Low)?? 11/03/2022 04:35 Phosphorus 3.8 mg/dL ()?? 11/03/2022 04:35 Magnesium 1.6 mg/dL ()?? 10/30/2022 16:38 Protein, Total 6.4 Gm/dL ()?? 10/30/2022 16:38 Albumin 4.0 Gm/dL ()?? 10/30/2022 16:38 AG Ratio 1.7 ()?? 10/30/2022 16:38 Alkaline Phosphatase 153 units/L (High)?? 10/30/2022 16:38 AST (SGOT) 17 units/L ()?? 10/30/2022 16:38 ALT (SGPT) 9 units/L ()?? 10/30/2022 16:38 Bilirubin, Total 0.4 mg/dL ()?? 10/30/2022 16:38 Iron Level 156 mcg/dL ()?? 10/31/2022 08:24 Iron Binding Capacity, Unsaturated <17 mcg/dL (Low)?? 10/31/2022 08:24 Iron Binding Capacity, Estimated Total Unable to calculate total iron binding capacity due to the low mcg/dL ()?? 10/31/2022 08:24 % Iron Saturation Unable to calculate % iron saturation due to the low unsaturated iron % ()?? 10/31/2022 08:24 Ferritin Level 1100 ng/mL (High)?? 10/31/2022 08:24 ?? COAG INR 1.3 (High)?? 10/30/2022 16:38 Protime (PT) 13.5 seconds (High)?? 10/30/2022 16:38 APTT 31.4 seconds ()?? 10/30/2022 16:38 ? HEME OTHER Hold Lavender Top SPECIMEN DISCARDED AFTER 24 HOURS. ()?? 11/05/2022 04:42 ? IMMUNOLOGY GENERAL Transferrin 138 mg/dL (Low)?? 10/31/2022 08:24 ? MISC. CHEMISTRY Hold Gel Top SPECIMEN DISCARDED AFTER 1 WEEK ()?? 11/05/2022 04:42 ? VIROLOGY COVID-19 by RT-PCR NEGATIVE ()?? 11/04/2022 17:40 COVID-19 PCR Specimen Source NASAL ()?? 10/30/2022 23:39 COVID-19 PCR Result NEGATIVE ()?? 10/30/2022 23:39 ? Microbiology ?? COVID-19 (2019 Novel Coronavirus) PCR?? Completed?? Source: Nasal Body Site: Nose Collected Dt/Tm: 10/30/2022 20:49 Last Updated Dt/Tm: 10/31/2022 01:01 ? 35_ minutes spent on discharge * Fern JAY, Felisha Ga: PERFORM, SIGN, VERIFY Event Display: Case Management Discharge Plan Authored Date: [id number] Patient: SARWAT SMALL Age: 67 years Sex: Male : 1955 Associated Diagnoses: None Author: Fern RN, Felisha Ga Discharge Plan Case Management Discharge Plan : Case Management Discharge Plan Data 11/05/2022 10:11 EST Discharge Level of Care at Discharge detention facility Discharge Nursing Homes/Rehab Facilities [place] [id number] Yasir family [facility]. Discharge Transportation Arranged [facility] [address] [facility] [phone] Discharge Arranged Transport Date/Time 11/05/2022 13:00 Mode of Transportation Arranged Ambulance Name of Agency #1 [facility] Agency Enrollment Nurse #1 Intake Service Categories #1 Physical Therapy, Group Home Service Comments #1 Youo are returning to [facility] today for snf and physical therapy. * Rohith JAY, Meaghan Blue: PERFORM Event Display: Patient Education/Instruction Authored Date: [id number] Inpatient Adult Discharge Instructions [address] [address] Name: SARWAT SMALL : 1955 Visit: 10/30/2022 20:45:00 Current Date: 11/05/2022 10:51 Account: [id number] Inpatient Adult Discharge Instructions We would like [...] and their families. Surveys are administered by [employer] ?? If further treatment with your primary care physician or another doctor is recommended, it is important for you to keep the appointment. Call your primary care physician or return to the Emergency Department immediately if your condition worsens, fails to improve, or new symptoms develop. If you need to find a doctor, you can call [facility] for a referral at [phone] or toll free at [phone]) or log in to [email or web address].. ?? You can view and manage your care through the patient portal or by using a health care zeina of your choosing. [employer] is a website that allows you to securely view your medical information including your hospital discharge summary, office visit summaries, medications and follow-up visits. You can also request appointments, renew medications, and request access to your medical information using a health care zeina of your choosing, or just ask a question. You can enroll at [email or web address] or register during your next office visit. You have been discharged from [facility], Patient Care Unit: S3. If you have any questions regarding these instructions after you leave, please call us and we will be happy to assist you. [facility] Your Care Team Attending Physician Quinten Espino DO Consulting Providers Rubin ROJAS, Art Bearden; John ROJAS, Will Hamilton MD, Garett Aponte Discharging Providers Quinten Espino DO Reason for Admission low h/h, rectal bleeding Your Diagnosis GI (gastrointestinal bleed) Pancytopenia Penile bleeding Coronary artery disease Hypothyroidism Hyperlipidemia ESRD on dialysis Bilateral nephrolithiasis Superficial femoral artery occlusion Anemia Tests Performed Below is a partial list of the tests performed during your hospitalization. You may have had other tests and procedures not included in this list. Please discuss all test results with your provider. BUN Calcium Level CBC w/ Differential Comprehensive Metabolic Panel COVID-19 (2019 Novel Coronavirus) PCR COVID-19 (NOVEL CORONAVIRUS), PCR Creatinine Electrolytes Ferritin Glucose Level H + H Hematocrit HEMOGLOBIN ONLY High??Sensitivity??Troponin T HOLD GEL TUBE HOLD LAVENDER TUBE INR Iron + Iron Binding Capacity Magnesium Level PHOSPHORUS ProBNP PTT Transferrin Troponin T, High Sensitivity Type and Screen CT Angio Abdomen and Pelvis CXR Portable Primary Care Provider Ashley Byrne MD Advance Directive Health Care Proxy on File Yes - Health Care Proxy Yes - [facility]OL[facility] Discharge Vitals Temperature: 97.9 DegF Height: 167.64 cm Pulse Rate: 66 bpm Weight: 51.9 kg Respiratory Rate: 18 br/min Body Mass Index: 20.25 kg/m2 Systolic Blood Pressure: 134 mm Hg Body surface area: 1.63 Diastolic Blood Pressure: 61 mm Hg ?? Oxygen Saturation: 100 % ?? Studies Pending All tests and labs ordered during this hospital stay have been completed unless listed below. Please discuss all pending results with your provider listed above in these instructions. ?? Add On Lab Order COVID-19 Antigen POC Hemoglobin (HEMOGLOBIN ONLY) Transfuse RBCs Urinalysis w/hold for Urine Culture What to do next Instructions From Your Doctor Discharge Orders You Need to Schedule the Following Appointments Follow Up with??Ashley Byrne MD When??Within 1 week: call to discuss follow up visit Where: [address] [place] [address] [place] [address]- Discharge Medications SARWAT SMALL :1955 Visit Date:10/30/2022 Medications: Please continue your medications until treatment is completed or stopped by your provider. Medications not listed below should be discontinued. Discuss any questions related to medications with your provider. What How Much When Instructions Next Dose New Ferrous Sulfate (ferrous sulfate 325 mg oral enteric coated tablet) 325 Milligram Oral 3 times a day next dose due 11/05 at 3pm Unchanged Acetaminophen (acetaminophen 325 mg oral tablet) 2 tab(s) Oral Every 6 hours as needed for as needed for fever/pain take as directed Unchanged Atorvastatin (atorvastatin 80 mg oral tablet) 1 tab(s) Oral Daily at Bedtime next dose due 11/05 at 9pm Unchanged Bisacodyl (Dulcolax 10 mg rectal suppository) 1 suppository(ies) Per rectum Daily as needed for as needed for constipation take as directed Unchanged Brimonidine Ophthalmic (brimonidine 0.2% ophthalmic solution) 2 Drops Both eyes Twice a day next dose due 11/05 at 9pm Unchanged Carvedilol (carvedilol 25 mg oral tablet) 1 tab(s) Oral Twice a day next dose due 11/05 at 9pm Unchanged Cholecalciferol (cholecalciferol 50,000 intl units oral capsule) 1 capsule Oral Every 30 days on the ?? next dose due 11/10 Unchanged Clonidine (cloNIDine 0.1 mg oral tablet) 2 tab(s) Oral 3 times a day Hold for systolic BP<100 mm Hg ?? next dose due 11/05 at 3pm, check BP prior to taking medication, follow parameters Unchanged Docusate (docusate sodium 100 mg oral capsule) 1 capsule Oral Twice a day next dose due 11/05 at 9pm Unchanged Epoetin Jose 20,000 unit(s) IV Push Slowly Thursday, Thursday and Thursday (NOT ON CURRENT PAPER CHART) ?? resume previous schedule Unchanged Gabapentin (gabapentin 100 mg oral capsule) 1 capsule Oral Daily next dose due 11/06 at 9am Unchanged Isosorbide Mononitrate (Imdur ER) 60 Milligram Oral Daily Hold for systolic BP<100 mm Hg ?? next dose due 11/06 at 9am, check BP prior to taking med, follow parameters Unchanged Levothyroxine (levothyroxine 200 mcg (0.2 mg) oral capsule) 1 capsule Oral Daily next dose due 11/06 at 7am Unchanged Lidocaine Thursday, Thursday and Thursday NOT ON PAPER CHART ?? resume previous schedule Unchanged Multivitamin (Vitamin B Complex oral tablet, extended release) 1 tab(s) Oral Daily next dose due 11/06 at 9am Unchanged nalOXONE (Narcan 4 mg/ 0.1 mL nasal spray) 4 Milligram Naris, Left Once as needed for as needed as instructed Unchanged nalOXONE (Narcan Inj) 1 Milliliter Intramuscular Once as needed for as needed as instructed Unchanged NIFEdipine (NIFEdipine 60 mg oral tablet, extended release) 1 tab(s) Oral Twice a day Hold for systolic BP<100 mm Hg ?? next dose due 11/05 at 9pm Unchanged Pantoprazole (pantoprazole 40 mg oral delayed release tablet) 1 tab(s) Oral Twice a day next dose due 11/05 at 9pm Unchanged Sucralfate (sucralfate 1 gm oral tablet) 1 tab(s) Oral Twice a day before meals ?? next dose due 11/05 with dinner ?? What How Much When Comments Stop Taking Aspirin (aspirin 81 mg oral tablet, chewable) 1 tab(s) Oral Daily Test Results Below is a partial list of the most recent Laboratory test results done prior to this discharge. You may have had other tests and procedures not included in this list. Please discuss all test resultswith your provider. RBC Available - XM (11/04/2022) RBC Unit ID - [id number] (11/04/2022) BUN (11/03/2022) ???BUN - 47 mg/dL Calcium Level (11/03/2022) ???Calcium - 8.4 mg/dL CBC w/ Differential (11/03/2022) ???WBC - 3.0 k/mm3???RBC - 2.38 m/mm3???Hgb - 7.3 Gm/dL???Hct - 21.2 %???MCV - 89.1 femtoliters???MCH - 30.7 pg???MCHC - 34.4 g/dL???Platelet Count - 77 k/mm3???RDW-SD - 52.1 femtoliters???MPV - 12.2femtoliters???Nucleated RBC (Automated) - 0.0 #/100 WBC'S???Abs. NRBC - 0.0 k/mm3???Abs. Neut - 1.9 k/mm3???Abs. Lymph - 0.5 k/mm3???Abs. Nobles - 0.4 k/mm3???Abs. Eo - 0.1 k/mm3???Abs. Baso - 0.0 k/mm3???Neut % - 64.9 %???Lymph % - 18.2 %???Nobles % - 12.8 %???Eos % - 2.4 %???Baso % - 0.7 %???Imm Gran- 1.0 %???Abs. Imm Gran - 0.0 k/mm3 Comprehensive Metabolic Panel (10/30/2022) ???Sodium - 142 mmol/L???Potassium - 3.8 mmol/L???Chloride - 102 mmol/L???Bicarbonate Level - 32 mmol/L???Anion Gap - 8???Glucose Level - 78 mg/dL???BUN - 23 mg/dL???Creatinine-Blood - 3.8 mg/dL???Estimated GFR Creatinine - 16 ML/MIN/1.73 M2???Calcium - 8.6 mg/dL???Protein, Total - 6.4 Gm/dL???Album in - 4.0 Gm/dL???AG Ratio - 1.7???Alkaline Phosphatase - 153 units/L???AST (SGOT) - 17 units/L???ALT (SGPT) - 9 units/L???Bilirubin, Total - 0.4 mg/dL COVID-19 (2019 Novel Coronavirus) PCR (10/30/2022) ???COVID-19 PCR Specimen Source - NASAL???COVID-19 PCR Result - NEGATIVE COVID-19 (NOVEL CORONAVIRUS), PCR (11/04/2022) ???COVID-19 by RT-PCR - NEGATIVE Creatinine (11/03/2022) ???Creatinine-Blood - 7.9 mg/dL???Estimated GFR Creatinine - 7 ML/MIN/1.73 M2 Electrolytes (11/03/2022) ???Sodium - 134 mmol/L???Potassium - 4.7 mmol/L???Chloride - 91 mmol/L???Bicarbonate Level - 25 mmol/L???Anion Gap - 18 Ferritin (10/31/2022) ???Ferritin Level - 1100 ng/mL Glucose Level (11/03/2022) ???Glucose Level - 87 mg/dL H + H (11/01/2022) ???Hgb - 6.8 Gm/dL???Hct - 20.2 % Hematocrit (11/05/2022) ???Hct - 22.8 % HEMOGLOBIN ONLY (11/05/2022) ???Hgb - 7.4 Gm/dL High??Sensitivity??Troponin T (10/30/2022) ???High Sensitivity Troponin (HSTnT) - 143 ng/L HOLD GEL TUBE (11/05/2022) ???Hold Gel Top - SPECIMEN DISCARDED AFTER 1 WEEK HOLD LAVENDER TUBE (11/05/2022) ???Hold Lavender Top - SPECIMEN DISCARDED AFTER 24 HOURS. INR (10/30/2022) ???INR - 1.3???Protime (PT) - 13.5 seconds Iron + Iron Binding Capacity (10/31/2022) ? ?Iron Level - 156 mcg/dL? ?Iron Binding Capacity, Unsaturated - <17 mcg/dL? ?Iron Binding Capacity, Estimated Total - Unable to calculate total iron binding capacity due to the low???% Iron Saturation - Unable to calculate % iron saturation due to the low unsaturated iron Magnesium Level (10/30/2022) ???Magnesium - 1.6 mg/dL PHOSPHORUS (11/03/2022) ???Phosphorus - 3.8 mg/dL ProBNP (10/30/2022) ???Nt-Probnp - 00206 pg/mL PTT (10/30/2022) ???APTT - 31.4 seconds Transferrin (10/31/2022) ???Transferrin - 138 mg/dL Troponin T, High Sensitivity (10/30/2022) ???High Sensitivity Troponin (HSTnT) - 139 ng/L Type and Screen (11/02/2022) ???Blood Type - O Positive???Antibody Screen - Positive Allergies (NKA means No Known Allergies) lisinopril Problems Active Problems??(15) Anemia of chronic disease?? COPD (chronic obstructive pulmonary disease)?? Coronary artery disease?? Diabetes mellitus?? ESRD on dialysis?? Gastritis?? Hepatitis C, chronic?? Hyperlipidemia?? Hypertension?? Hypothyroidism?? Hypothyroidism?? Peripheral vascular disease?? Pulmonary edema?? Respiratory failure, chronic?? TACO (transfusion associated circulatory overload)?? Education Materials Below is the list of Educational Leaflet Providered with your Discharge Instructions. Valuables and Belongings I fully understand and agree that [facility] accepts no responsibility for all my personal [...] patient Date for Pt to Sign Valuables/Belongings: 11/05/22 10:12:00 ?? Other Discharge Information ? Case Management Discharge Plan?? Discharge Plan?? Discharge Agency Information?? Discharge Level of Care at Discharge: detention facility Name of Agency #1: [facility] Discharge Transportation Arranged: [facility] [address] [facility] [phone] Agency Enrollment Nurse #1: Intake Mode of Transportation Arranged: Ambulance Service Categories #1: Physical Therapy, Group Home Discharge Arranged Transport Date/Time: 11/05/22 13:00:00 Service Comments #1: Youo are returning to [facility] today for snf and physical therapy. Discharge Nursing Homes/Rehab Facilities: [facility] Chloe Goddard. ? Pulmonary Rehab Status?? Pulmonary Rehab Discharge [...] are strongly encouraged to quit. Please call [facility] at [phone] or [phone] ([phone]) or log in to [email or web address] for referrals to smoking cessation programs. ?? The National Suicide Prevention Hotline is available 20/04 if you or someone you know needs to find a reason to keep living. By calling 5-660-955-[employer] (0057) you'll be connected to a skilled, trained counselor at a crisis center in your area. INPATIENT DISCHARGE INSTRUCTIONS SIGNATURE PAGE SARWAT SMALL Location:[facility] Registration Date and Time:10/30/2022 20:45 EST Primary Care Physician: Ashley Byrne MD, I JOEL SMALLEN, have received the above patient education materials/instructions and have verbalized understanding. If ambulance or transport services are being used I further acknowledge being given a choice of service. ?? If you need to contact me, please call me at this number: . Patient/Shirt Sorter Name: Patient/Shirt Sorter Signature: Relationship to Patient: Witness Name/Signature: Date: Portable XR Chest Views * [facility] , CIS S: TRANSCRIBE Levon ROJAS, Maura M: VERIFY Bora ROJAS, med: SIGN Event Display: Result: Authored Date: [id number] Chest Portable performed upright at 4:43 PM HX OF PRESENT ILLNESS: Rectal and penile bleeding COMPARISON: 10/14/2022 and multiple priors. FINDINGS: LINES AND TUBES: Multiple wires overlie the chest. LUNGS AND PLEURA: Marked improvement in bilateral pulmonary vascular congestion/edema, still persistent at the bases. Trace bilateral pleural effusions, larger on the right No pneumothorax. HEART, MEDIASTINUM AND JOSELYN: Heart is normal in size. Normal mediastinal and hilar contour. BONES AND SOFT TISSUES: No acute abnormality. Left subclavian vascular stent. Mild bilateral glenohumeral joint degenerative changes. Sternotomy wires. IMPRESSION: Marked improvement in bilateral pulmonary congestion/edema, still persistent at the bases, with trace bilateral pleural effusions. I have personally reviewed the images and I agree with this report. WSN: [id number] Ordering Physician: Ellis Clemens Dictated By: Sue Sahni MD Dictated Date/Time: 10/30/22 5:01 pm Reviewed By: Maura Dos Santos MD Signed By: Maura Dos Santos MD Signed Date/Time: 10/30/22 5:06 pm Transcribed By: WILFREDO Transcribed Date/Time: 10/30/22 4:54 pm CTA Abdominal vessels and Pelvis vessels W contrast IV * [facility] , CIS S: TRANSCRIBE Rosana ROJAS, Devrim: VERIFY Event Display: Result: Authored Date: [id number] CT Angio Abdomen and Pelvis INDICATION: Hx of Present Illness: rectal and penile bleeding; Reason: Other:; GI bleed; Clinical Question(s): Other:; Intestinal Bleeding , Other: COMPARISON: None. TECHNIQUE: Unenhanced axial images were obtained from diaphragm through the pelvis before, during (arterial) and after (portal venous) the intravenous administration of iodinated contrast. 100 cc of Omnipaque 300 was administered intravenously. Sagittal and coronal maximum intensity projection (MIP) images were reconstructed and rendered in both arterial and venous phases. Weight-based protocol using automatic tube modulation was used to optimize exposure parameters. RADIATION DOSE PARAMETERS: CTDIvol Body: 9.52 mGy, DLP Body: 1566 mGy*cm. VASCULAR FINDINGS: No evidence of active GI bleeding. There are heavy atherosclerotic calcifications. Abdominal aorta: No aortic aneurysm or dissection. Celiac axis: Mild stenosis at its origin. Superior mesenteric artery: Mild stenosis at its origin. Right renal artery: Moderate stenosis at its origin. Left renal artery: Moderate stenosis at its origin. Inferior mesenteric artery: Patent. Right common iliac artery: Patent. Right internal iliac artery: Patent. Right external iliac artery: Patent. Right common femoral artery: Patent. Visualized right superficial and deep femoral arteries: Superficial femoral artery is occluded. Thefemoral artery is patent. Left common iliac artery: Patent. Left internal iliac artery: Occluded. Left external iliac artery: Patent. Left common femoral artery: Patent. Visualized left superficial and deep femoral arteries: Patent. IVC and hepatic veins: Patent. Portal vein: Patent. Splenic vein: Patent. Inferior mesenteric vein: Patent. Iliac and femoral veins: Patent. NONVASCULAR FINDINGS: Visualized Chest: Small bilateral pleural effusions and adjacent atelectasis or scarring. Mild bronchiectasis in lower lobes. Partially imaged mild cardiomegaly. No pericardial effusion. Diaphragm: Normal. Liver: Cirrhotic liver morphology. A subcentimeter hypodensity in segment 4A is too small to characterize by CT. Gallbladder: Gallbladder is underdistended. There is cholelithiasis and diffuse gallbladder wall edema.. Bile ducts: No biliary ductal dilation. Spleen: Splenomegaly measuring 13.6 cm AP with calcifications in the splenic capsule. Pancreas: Normal. Adrenal glands: Normal. Kidneys and ureters: Atrophied kidneys with multiple stones in the calyces and renal pelvises including a 1.3 cm stone in the left UPJ and cluster of subcentimeter stones in the right UPJ. The ureters are not dilated. No evidence of ureteral stone. Bladder: Decompressed and appears diffusely thick-walled with perivesical fat stranding. Reproductive organs: Unremarkable. Stomach, small bowel, and large bowel: No abnormal wall thickening or distention. There are a few sigmoid diverticuli without evidence of acute diverticulitis. Appendix: Normal. Peritoneum and retroperitoneum: No ascites or pneumoperitoneum. No omental or mesenteric lesions. Lymph nodes: No enlarged lymph nodes. Abdominal and pelvic wall: Unremarkable. Bones: No acute abnormality. Multilevel degenerative disc disease throughout the spine. Increased density of the visualized skeleton, likely due to renal osteodystrophy. IMPRESSION: 1. No evidence of active GI bleed. 2. Cirrhotic liver and splenomegaly. 3. Atrophied kidneys with multiple stones in the calyces and renal pelvises. 4. Findings suggesting cystitis. 5. Cholelithiasis and diffuse gallbladder wall edema, most likely secondary to underlying hepatocellular disease given under distended lumen. 6. 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 7. Trace pleural effusions. 8. Additional incidental findings as detailed above. A critical result message ([place]) has been communicated via the [employer] system on 10/30/2022 7:37 PM, Message ID [id number]. WSN: [id number] Ordering Physician: Ellis Clemens Dictated By: Becca Wayne MD Dictated Date/Time: 10/30/22 7:37 pm Reviewed By: Becca Wayne MD Signed By: Becca Wayne MD Signed Date/Time: 10/30/22 7:37 pm Transcribed By: WILFREDO Transcribed Date/Time: 10/30/22 7:15 pm Patient Care team information Care Team Personnel Name: Capri Bush RN Position: S RN Member Role: Primary Care Nurse Name: Arlen Hale LPN Position: S RN Member Role: Primary Care Nurse Name: Chloe Dhaliwal RN Position: [facility] RN Member Role: Primary Care Nurse Name: Laureano Crawley RN Position: [facility] RN Member Role: Primary Care Nurse Name: Mary Ellen Mcdonald NP Position: [facility] Associate Professional Member Role: [employer] Provider Address: Address: [address] [facility] [place] [address]- Name: Dread Trent RN Position: [facility] [facility] RN Member Role: Primary Care Nurse Name: Yudelka Hawkins RN Position: [facility] RN Member Role: Primary Care Nurse Name: Wojciech Arriaga RN Position: [facility] RN Member Role: Primary Care Nurse Name: Jodi Parr RN Position: [facility] RN Member Role: Primary Care Nurse Name: Nasreen Gamble RN Position: [facility] OB RN Member Role: Primary Care Nurse Name: Marvin Dooley DO Position: [facility] Renal MD Member Role: Lifetime Consulting Physician Address: Address: [address] [facility] [place] [address]- Name: Fermín Dominguez III, RN Position: [facility] RN Member Role: Primary Care Nurse Name: Rut Tucker Position: S RN Member Role: Primary Care Nurse Name: Gutierrez Anderson MD Position: [facility] Renal MD Member Role: Lifetime Consulting Physician Address: Address: [address] [facility] [place] [address]- Name: Leeann Brown RN Position: [facility] RN Member Role: Primary Care Nurse Name: Pepe Brown RN Position: S RN Member Role: Primary Care Nurse Name: Kassy Jo RN Position: [facility] RN Member Role: Primary Care Nurse Name: Patricia Chase RN Position: [facility] RN Member Role: Primary Care Nurse Name: Felisha Simon Position: [facility] RN Member Role: Primary Care Nurse Name: Martha Lawson RN Position: [facility] RN Member Role: Primary Care Nurse Name: Stephen Hua RN Position: [facility] RN Member Role: Primary Care Nurse Name: Geraldine Whyte RN Position: [facility] RN Member Role: Primary Care Nurse Name: Ashley Byren MD Position: [facility] Outreach Member Role: PCP Address: Address: [address] [place] [address] [place], [place] [address] Name: Janna Valverde RN Position: [facility] RN Member Role: Primary Care Nurse Name: Kyle Matthews RN Position: [facility] RN Member Role: Primary Care Nurse Name: Judi Phillips RN, I Position: [facility] RN Member Role: Primary Care Nurse Name: Franky BLANKENSHIP Attending Position: [facility] ED Medicine MD Name: Jose Skinner RN Position: [facility] ED RN W/OE and Tasks Member Role: Patient Care Provider Name: Wally Sargent Position: [facility] ED TA [facility] Member Role: Accounts Specialist Care Team Related Persons Name: DOMINGANAYELYE Address: [place] [address]
--- OUTSIDE RECORDS SUMMARY | 2023-08-23 07:13 | XMS_ITS | Continuity of Care Document ---
Author Name Unknown Organization [facility] C ancer Care Address [address] [place] [address]- Care Team Providers Care Quality Manager Name Role Phone Rasta Guerrero MD Primary Care Physician [phone] [id number] Date(s): 10/15/22 - 01/29/23 [facility] Care [address] [place] [address]- Discharge Disposition: A-D/C Home Attending Physician: Earnest Rascon MD Admitting Physician: Earnest Rascon MD Referring Physician: Ashley Byrne MD Allergies, Adverse Reactions, Alerts Substance Reaction Severity Status lisinopril Active Immunizations Given and Recorded Vaccine Date Status Refusal Reason [id number] 12y+ bivalent booster vax 08/01/22 Recorded SARS-CoV-2 (COVID-19) mRNA-1273 vaccine 07/04/22 R ecorded SARS-CoV-2 (COVID-19) mRNA-1273 vaccine 11/13/20 R ecorded SARS-CoV-2 (COVID-19) mRNA-1273 vaccine 10/15/20 R ecorded SARS-CoV-2 mRNA ([id number]) vax 02/04/22 Recorded SARS-CoV-2 (COVID-19) mRNA BNT-162b2 [...] Team Personnel Name: Capri Bush RN Position: [facility] RN Member Role: Primary Care Nurse Name: Arnold Canales RN Position: [facility] RN Member Role: Primary Care Nurse Name: Linda La RN Position: [facility] Outreach Member Role: Primary Care Nurse Name: Arlen Hale LPN Position: [facility] RN Member Role: Primary Care Nurse Name: Chloe Dhaliwal RN Position: [facility] RN Member Role: Primary Care Nurse Name: Laureano Crawley RN Position: [facility] RN Member Role: Primary Care Nurse Name: Mary Ellen Mcdonald NP Position: [facility] Associate Professional Member Role: Lifetime Consulting Provider Address: Address: [address] [place], [place] [address] [place] [address]- Name: Barrie Lopez MD Position: [facility] Renal MD Member Role: Lifetime Consulting Physician Address: Address: [address] [place], [place] [address]E [facility] [place] [address]- Name: Dread Trent RN Position: [facility] RN Member Role: Primary Care Nurse Name: Wojciech Arriaga RN Position: [facility] RN Member Role: Primary Care Nurse Name: Jodi Parr RN Position: [facility] RN Member Role: Primary Care Nurse Name: Nasreen Gamble RN Position: [facility] OB RN Member Role: Primary Care Nurse Name: Marvin Dooley DO Position: [facility] Renal MD Member Role: Lifetime Consulting Physician Address: Address: [address] [place] [address] [address] [facility] [place] [address]- Name: Fermín Dominguez III, RN Position: [facility] RN Member Role: Primary Care Nurse Name: Rut Tucker Position: [facility] RN Member Role: Primary Care Nurse Name: Gutierrez Anderson MD Position: [facility] Renal MD Member Role: Lifetime Consulting Physician Address: Address: [address] [facility] [place] [address]- [place] Name: Rasta Guerrero MD Position: [facility] Outreach Member Role: PCP Address: Address: [address] [facility] [place] [address]- Name: Leeann Brown RN Position: S RN Member Role: Primary Care Nurse Name: Pepe Brown RN Position: S RN Member Role: Primary Care Nurse Name: Kassy Jo RN Position: S RN Member Role: Primary Care Nurse Name: Patricia Chase RN Position: [facility] RN Member Role: Primary Care Nurse Name: Martha Lawson RN Position: [facility] RN Member Role: Primary Care Nurse Name: Geraldine Whyte RN Position: [facility] RN Member Role: Primary Care Nurse Name: Janna Valverde RN Position: [facility] RN Member Role: Primary Care Nurse Name: Kyle Matthews RN Position: [facility] RN Member Role: Primary Care Nurse Name: Rasta Silverio RN Position: [facility] RN Member Role: Primary Care Nurse Name: Judi Phillips RN, I Position: [facility] RN Member Role: Primary Care Nurse Care Team Related Persons Name: DANNA ROR Address: [place] [address]
--- OUTSIDE RECORDS SUMMARY | 2023-08-23 07:13 | XMS_ITS | Continuity of Care Document ---
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 [employer] Name Role Phone Ashley Byrne MD Primary Care Physician [phone] Encounter [facility] Date(s): 12/06/22 - 12/08/[address] [address]- Encounter Diagnosis Anemia of chronic disease(Final) - 12/06/22 Discharge Disposition: A-Transfer SNF Attending Physician: Josie ROJAS, Adam Trejo Admitting Physician: Alda Grimes MD Referring Physician: Not on Staff, Referring MD Allergies, Adverse Reactions, Alerts Substance Reaction Severity Status lisinopril Active Immunizations Given and Recorded Vaccine Date Status Refusal Reason [id number] 12y+ bivalent booster vax 08/01/22 Recorded SARS-CoV-2 (COVID-19) mRNA-1273 vaccine 07/04/22 R ecorded SARS-CoV-2 (COVID-19) mRNA-1273 vaccine 11/13/20 R ecorded SARS-CoV-2 (COVID-19) mRNA-1273 vaccine 10/15/20 R ecorded SARS-CoV-2 mRNA ([id number]) vax 02/04/22 Recorded SARS-CoV-2 (COVID-19) mRNA BNT-162b2 [...] tablet, By Mouth, 2 times a day, Every Thu, , Thu, Refills 0, Maintenance, 12/06/22 11:34:00 EST, Partial fill upon patient request if the prescription is for a schedule II opioid drug. Start Date: 12/06/22 Status: Ordered cloNIDine 0.2 mg oral tablet 0.2 mg, 1, tablet, By Mouth, 3 times a day, Every Thu, Thu, Wed, Thu, # 60 tablet, Refills 0, Maintenance, 12/06/22 [...] IV Push Slowly, Every Thursday, Thursday and Saúl, (NOT ON CURRENT PAPER CHART), 0 Refills, [...] for Microbiology Reports Name Date Blood Culture 12/05/22 Blood Culture #2 12/05/22 Microbiology Reports TEST:Blood Culture, Second Order STATUS:Unauthenticated BODY SITE: SOURCE:Blood COLLECTED DATE/TIME:12/05/22 10:32 PM Blood Culture, Second Order SPECIMEN DESCRIPTION : BLOOD NO SITE SPECIAL REQUESTS : NONE CULTURE : NO GROWTH AFTER 48 HOURS REPORT STATUS : PRELIMINARY REPORT TEST:Blood Culture STATUS:Unauthenticated BODY SITE: SOURCE:Blood COLLECTED DATE/TIME:12/05/22 10:28 PM Blood Culture SPECIMEN DESCRIPTION : BLOOD NO SITE SPECIAL REQUESTS : NONE CULTURE : NO GROWTH AFTER 48 HOURS REPORT STATUS : PRELIMINARY REPORT Radiology Reports * Exam Date Time Procedure Performing Provider Status 12/05/22 10:56 PM Chest Portable Johnathan Aditi; Aut h (Verified) Notes: (Chest Portable) Reason For Exam: Shortness of Breath RESULT: Chest Portable Chest Portable Hx of Present Illness: low H H; Reason: Shortness of Breath; Clinical Question(s): CHF COMPARISON: 10/30/2022 FINDINGS: LINES AND TUBES: None. LUNGS AND PLEURA: Diffuse patchy density noted in both lung hogan. This appears relatively symmetric and would be consistent with pulmonary edema. No pleural effusion. No pneumothorax. HEART, MEDIASTINUM AND JOSELYN: Heart is normal in size. Normal mediastinal and hilar contour. BONES AND SOFT TISSUES: No acute abnormality. IMPRESSION: Groundglass opacity both lungs demonstrating symmetric relatively simple appearance. Possible findings of pulmonary edema. Pneumonia not excluded. WSN: [id number] Ordering Physician: Zayda Sultana Dictated By: Anderson Kumar MD Dictated Date/Time: 12/05/22 11:09 p Reviewed By: Anderson Kumar MD Signed By: Anderson Kumar MD Signed Date/Time: 12/05/22 11:09 pm Transcribed By: [email or web address] Transcribed Date/Time: 12/05/22 11:07 pm Vital Signs Most recent to oldest [Reference Range]: 1 2 3 Height 169 cm (12/08/22 2:40 PM) 169 cm (12/08/22 11:13 AM) 169 cm (12/08/22 7:14 AM) Weight 56.3 kg (12/06/22 4:40 PM) 66 kg (12/06/22 4:43 AM) 66 kg (12/06/22 12:59 AM) Oxygen Saturation [94-100 %] 100 % (12/08/22 2:40 PM) 100 % (12/08/22 11:13 AM) 100 % (12/08/22 9:10 AM) Pulse Rate [55-90 bpm] 56 bpm (12/08/22 2:40 PM) 61 bpm (12/08/22 11:13 AM) 55 bpm (12/08/22 9:10 AM) Body Mass Index [18.5-24.99 kg/m2] 19.71 kg/m2 (12/06/22 4:40 PM) Blood Pressure [90-138/55-84 mm Hg] 140/55mm Hg *H* (12/08/22 2:40 PM) 132/93mm Hg (12/08/22 11:13 AM) 139/63mm Hg *H* (12/08/22 9:10 AM) Respiratory Rate [16-30 br/min] 18 br/min (12/08/22 2:40 PM) 18 br/min (12/08/22 11:13 AM) 16 br/min (12/08/22 9:10 AM) Temperature [96.8-100.4 DegF] 98.5 DegF (12/08/22 2:40 PM) 97.6 DegF (12/08/22 11:13 AM) 97.3 DegF (12/08/22 7:14 AM) Liters per Minute 3 L/min (12/08/22 2:40 PM) 3 L/min (12/08/22 11:13 AM) 3 L/min (12/08/22 9:10 AM) Mode of Delivery (Oxygen) Nasal cannula (12/08/22 2:40 PM) Nasal cannula (12/08/22 11:13 AM) Nasal cannula (12/08/22 9:10 AM) Blood pressure sites Arm, left (12/08/22 2:40 PM) Arm, right (12/08/22 11:13 AM) Arm, right (12/08/22 9:10 AM) Temperature Route Oral (12/08/22 2:40 PM) Oral (12/08/22 11:13 AM) Oral (12/08/22 7:14 AM) Dry Weight 56.3 kg (12/06/22 4:40 PM) 66 kg (12/06/22 4:43 AM) 66 kg (12/06/22 12:59 AM) Weight Obtained Via Bed scale (12/06/22 4:40 PM) Dry Weight Obtained Via Bed scale (12/06/22 4:40 PM) Social History Social History Type Response Smoking Status Former smoker, quit more than 30 days ago; Other: Quit 20 years ago, smoked for 30 years 1.5 ppd; entered on: 06/30/22 Sex Admission evaluation note * Kun ROJAS, Sugar: MODIFY, MODIFY, MODIFY, MODIFY, PERFORM, MODIFY Event Display: Admission Note Authored Date: Patient: ??SARWAT SMALL ? Age:??67 Years?Sex:??Male?:??1955?? Chief Complaint/Reason for Consultation coming from [facility] and did stat lab and saw his hgb was 6.3 and HCT 20.3 pt states having stabbing pain in chest that jhappens everytime they do a 12 lead. History of Present Illness 67 YOM with pertinent PMH of ESRD???on HD, CAD s/p CABG, PAD s/p bilateral AKA, HTN, HLD, hypothyroidism, DM, COPD???on 2L via NC and chronic anemia 2/2 CKD/CLD plus GAVE syndrome has now presented with fatigue and hemoglobin of 6.3. ?? Of note, patient was recently admitted with similar symptoms with hemoglobin 6.8 and transfused half a unit of PRBC after which H&H improved to 8.1 and showed symptomatic improvement.?? She was discharged on 11/27 back to her facility and weakness in usual state of health until this morning when she was evaluated for 1 week history of worsening fatigue with an H&H at 6.3.?? She denies hemate mesis, hemoptysis, melena or any traumatic injury.?? She denies any changes in medication.?? Deniesany abdominal pain/flank bruising.?? Denies any recent viral infections/prodrome. ?? -Upon presentation to the ED, patient found to be hemodynamically stable with BP 158/58, afebrile and saturating at 3L via NC. -Initial lab work: WBC 3.3, hemoglobin 6.1, HCT 20, MCV 97.6, platelets 76 electrolytes WNL proBNP >70K and troponin elevated at 111 however downtrending at 108. -EKG not done -Chest x-ray done concerning for groundglass opacity within both lungs demonstrating symmetric relatively simple appearance with possible pulmonary edema. ?? -Crossmatch done in the ED and patient received 1 unit PRBC. -Being admitted for further monitoring and work-up of ongoing anemia. Review of Systems General: Feels well and slept overnight. Cardiovascular: Denies any chest pain or palpitations. Pulmonary: Denies any shortness of breath or cough. GI: Denies any abdominal pain, nausea, vomiting, diarrhea or constipation. : Denies any urinary retention Objective Vital Signs?? Temperature: 97.8 DegF (12/06/22 08:00:00) Temperature Route: Oral (12/06/22 08:00:00) Pulse Rate: 63 bpm (12/06/22 08:00:00) Respiratory Rate: 16 br/min (12/06/22 08:36:00) Systolic Blood Pressure:??193 mm Hg??High (12/06/22 08:00:00) Diastolic Blood Pressure: 63 mm Hg (12/06/22 08:00:00) Blood pressure sites: Arm, left (12/06/22 08:00:00) Mean Arterial Pressure: 91 mm Hg (12/06/22 04:43:00) Pulse Pressure: 100 mm Hg (12/06/22 04:43:00) Oxygen Saturation: 99 % (12/06/22 08:00:00) Liters per Minute: 5 L/min (12/06/22 08:00:00) Mode of Delivery (Oxygen): Room air (12/06/22 08:00:00) Early Warning Score: 8 (12/06/22 08:39:58) ? Physical Exam Constitutional: Chronically ill-appearing but not in acute distress. Respiratory:??Mild bibasilar crackles Cardiovascular:??PMI not visible. S1 S2 regular. Gastrointestinal:??Abdomen soft, non-tender, non-distended. Normal bowel sounds. No pulsatile mass.No hepatosplenomegaly. Genitourinary:??No costovertebral angle tenderness. Extremities: No lower extremity pitting edema. No cyanosis or clubbing.?? Euvolemic Neurologic:??AAOx3, no focal deficits Musculoskeletal:??Bilateral AKA Assessment/Plan 67 YOM with pertinent PMH of ESRD???on HD, CAD s/p CABG, PAD s/p bilateral AKA, HTN, HLD, hypothyroidism, DM, COPD???on 2L via NC and chronic anemia 2/2 CKD/CLD plus GAVE syndrome has now presented with fatigue and hemoglobin of 6.3. ?? #Acute on chronic anemia: #Anemia of chronic disease: Multifactorial anemia given CKD, CLD, GAVE syndrome and ?possible multiple nutritional deficiencies. -Last EGD:normal esophagus, normal duodenum, erosions in the whole stomach given GAVE.?? Colonoscopy could not be done as patient was poorly prepared as he kept on refusing GoLytely for 2 days in a row -She has been eval by hematology during her admission in 05/19 with extensive work-up including negative HIV, free kappa lambda ratio of 1.82, however negative serum electrophoresis.?? Normal B12, folate, iron panel.?? Given the patient had low haptoglobin, however had normal fibrinogen.?? He was recommended to follow-up with hematology outpatient, whom he sees at [facility] -Last work-up done on 11/25 with iron, B12, folate level normal.?? Haptoglobin less than 10, howevernormal fibrinogen ?? Plan: -Monitor closely for TACO given already vol overload -Follow-up posttransfusion CBC -Epogen as per nephrology -Unlikely further nutritional deficiencies given recent lab work. -PPI -Will place GI consult for further?? recommendations ? #ESRD: On HD: Continue with hemodialysis per schedule ? #Coronary artery disease (I25.10):?? #Peripheral vascular disease (I73.9):?? Not on antiplatelets or anticoagulants due to high risk of GI bleeding ? #Hypertension (I10):?? -Continue carvedilol 25 mg twice daily -Continue isosorbide mononitrate 60 mg daily -Continue nifedipine 60 mg extended release 2 times a day -Continue clonidine 0.2 mg twice daily -PRN Labetolol for SBP>180 ?? #Hyperlipidemia: Continue atorvastatin ?? #Hypothyroidism:?? Continue levothyroxine ? #Diabetes mellitus: POC glucose with meals and at bedtime Cover with insulin sliding scale Hypoglycemic protocol in place ?? #COPD (chronic obstructive pulmonary disease):?? Rescue beta agonist inhalers as needed Not on long-term meds Continue nocturnal and as needed O2 Supplementation ?? #Chronic pain syndrome:?? Continue pain management (gabapentin + as needed oxycodone ) as being done in the outpatient Bowel regimen in place ? -Diet : clear liquids for now -VTE Prophylaxis:?? Not on anticoagulation due to possible active bleeding Pneumoboots FULL CODE ? Histories Allergies Allergies ?(Active and Proposed Allergies [...] tablet)?1?gram?1?tablet?By Mouth?2 times a day?before meals ? Results Recent Labs BLOOD BANK Blood Type O Positive ()?? 12/05/2022 21:04 Antibody Screen Positive ()?? 12/05/2022 21:04 RBC Unit ID [id number] ()?? 12/05/2022 23:45 RBC Available IS ()?? 12/05/2022 23:45 ?? BLOOD COUNT & DIFF WBC 3.3 k/mm3 (Low)?? 12/05/2022 21:13 RBC 2.05 m/mm3 (Low)?? 12/05/2022 21:13 Hgb 6.1 Gm/dL (Critical)?? 12/05/2022 21:13 Hct 20.0 % (Low)?? 12/05/2022 21:13 MCV 97.6 femtoliters (High)?? 12/05/2022 21:13 MCH 29.8 pg ()?? 12/05/2022 21:13 MCHC 30.5 g/dL (Low)?? 12/05/2022 21:13 Platelet Count 76 k/mm3 (Low)?? 12/05/2022 21:13 RDW-SD 61.2 femtoliters (High)?? 12/05/2022 21:13 MPV 12.5 femtoliters (High)?? 12/05/2022 21:13 Nucleated RBC (Automated) 0.0 #/100 WBC'S ()?? 12/05/2022 21:13 Abs. NRBC 0.0 k/mm3 ()?? 12/05/2022 21:13 Abs. Neut 2.2 k/mm3 ()?? 12/05/2022 21:13 Abs. Lymph 0.7 k/mm3 (Low)?? 12/05/2022 21:13 Abs. [place] 0.3 k/mm3 (Low)?? 12/05/2022 21:13 Abs. Eo 0.1 k/mm3 ()?? 12/05/2022 21:13 Abs. Baso 0.0 k/mm3 ()?? 12/05/2022 21:13 Neut % 67.0 % ()?? 12/05/2022 21:13 Lymph % 19.8 % ()?? 12/05/2022 21:13 [place] % 9.3 % ()?? 12/05/2022 21:13 Eos % 3.0 % ()?? 12/05/2022 21:13 Baso % 0.3 % ()?? 12/05/2022 21:13 Hemoglobin (POC) POC Cartridge 6.5 Gm/dL (Low)?? 12/05/2022 21:32 Hematocrit (POC) POC Cartridge 19 % (Critical)?? 12/05/2022 21:32 Imm Gran 0.6 % ()?? 12/05/2022 21:13 Abs. Imm Gran 0.0 k/mm3 ()?? 12/05/2022 21:13 ?? CARDIAC Nt-Probnp >92635 pg/mL (High)?? 12/05/2022 21:15 High Sensitivity Troponin (HSTnT) 108 ng/L (Critical)?? 12/06/2022 07:30 ?? CHEM GENERAL Sodium 140 mmol/L ()?? 12/05/2022 21:15 Potassium 3.6 mmol/L ()?? 12/05/2022 21:15 Chloride 100 mmol/L ()?? 12/05/2022 21:15 Bicarbonate Level 29 mmol/L ()?? 12/05/2022 21:15 Anion Gap 11 ()?? 12/05/2022 21:15 Sodium (POC) POC Cartridge 139 mmol/L ()?? 12/05/2022 21:32 Potassium (POC) POC Cartridge 3.8 mmol/L ()?? 12/05/2022 21:32 Chloride (POC) POC Cartridge 102 mmol/L ()?? 12/05/2022 21:32 Glucose Level 139 mg/dL (High)?? 12/05/2022 21:15 Glucose (POC) POC Cartridge 138 (High)?? 12/05/2022 21:32 Glucose, POC 90 mg/dL ()?? 12/06/2022 07:57 BUN 28 mg/dL (High)?? 12/05/2022 21:15 BUN (POC) POC Cartridge 34 mg/dL (High)?? 12/05/2022 21:32 Creatinine-Blood 6.0 mg/dL (High)?? 12/05/2022 21:15 Creatinine (POC) POC Cartridge 6.8 mg/dL (High)?? 12/05/2022 21:32 Estimated GFR Creatinine 10 ML/MIN/1.73 M2 ()?? 12/05/2022 21:15 Calcium 8.2 mg/dL (Low)?? 12/05/2022 21:15 Ionized Calcium (POC) POC Cartridge 0.96 mmol/L (Critical)?? 12/05/2022 21:32 Lactate 0.9 mmol/L ()?? 12/05/2022 22:28 ?? VIROLOGY COVID-19 by RT-PCR NEGATIVE ()?? 12/05/2022 20:03 ? EKG study * Event Display: EKG Authored Date: * Event Display: ECG 12-Lead Authored Date: Please click on pdf link to open report * Event Display: ECG 12-Lead Authored Date: Ventricular Rate: 63 BPM Atrial Rate: 63 BPM P-R Interval: 172 ms QRS Duration: 80 ms Q-T Interval: 416 ms QTC Calculation(Bazett): 425 ms P Addison: 8 degrees R Addison: -14 degrees T Addison: -77 degrees Normal sinus rhythm Nonspecific T wave abnormality Abnormal ECG When compared with ECG of 25-NOV-2022 15:23, No significant change was found Confirmed by YURI PENA ([id number]) on 12/08/2022 8:30:44 AM [place]: YURI PENA [facility] Progress note * Gladys ROJAS, Allan Blue: PERFORM Event Display: Progress Note Hospital Authored Date: Patient: ??SARWAT SMALL ? Age:??67 Years?Sex:??Male?:??1955?? Attending:??Josie ROJAS, Adam Trejo Admission Date: 12/06/2022 ?? Subjective Patient seen and examined, events notes. ? Objective Vital Signs (last 24 hrs) ?Last Charted Heart Rate Peripheral?56 bpm ??(DEC 08 14:40) Resp Rate?18 br/min ??(DEC 08 14:40) SBP?H??140mm Hg ??(MAR 13 14:40) DBP?55 mm Hg ??(MAR 13 14:40) SpO2?100 % ??(MAR 13 14:40) Height?169 cm ??(MAR 13 14:40) Intake?? Oral Fluids: 118 mL (12:00) ? Intake/Output? 12/06 00:02 12/08 07:00 12/07 07:00 12/06 07:00 0310 07:00 ?? 12/08 17:07 12/08 17:07 12/08 06:59 0312 06:59 12/06 06:59 Intake ? 1408 ?354 ?880 ?0 ?174 Output ? 2200 ?0 ?0 ? 2200 ?0 Net Total ? -792 ?354 ?880 ?-2200 ?174 ? Physical Exam General: NAD, AAOx4 HEENT: NCAT, MMM Neck: no JVD, neck supple Cardio: normal S1 snd S2, no MRG, RRR Resp: CTAB Abdo:??NT, ND Skin: No rashes or other abnormalities Neuro: Grossly intact Dialysis Access: Permcath ?? BLOOD COUNT & DIFF WBC 3.9 k/mm3 (Low)?? 12/08/2022 00:24 RBC 2.62 m/mm3 (Low)?? 12/08/2022 00:24 Hgb 7.9 Gm/dL (Low)?? 12/08/2022 00:24 Hct 24.2 % (Low)?? 12/08/2022 00:24 MCV 92.4 femtoliters ()?? 12/08/2022 00:24 MCH 30.2 pg ()?? 12/08/2022 00:24 MCHC 32.6 g/dL (Low)?? 12/08/2022 00:24 Platelet Count 78 k/mm3 (Low)?? 12/08/2022 00:24 RDW-SD 53.6 femtoliters (High)?? 12/08/2022 00:24 MPV 13.6 femtoliters (High)?? 12/08/2022 00:24 Nucleated RBC (Automated) 0.0 #/100 WBC'S ()?? 12/08/2022 00:24 Abs. NRBC 0.0 k/mm3 ()?? 12/08/2022 00:24 ?? CHEM GENERAL Sodium 134 mmol/L ()?? 12/08/2022 00:24 Potassium 4.2 mmol/L ()?? 12/08/2022 00:24 Chloride 93 mmol/L (Low)?? 12/08/2022 00:24 Bicarbonate Level 27 mmol/L ()?? 12/08/2022 00:24 Anion Gap 14 ()?? 12/08/2022 00:24 Glucose Level 98 mg/dL ()?? 12/08/2022 00:24 Glucose, POC 139 mg/dL (High)?? 12/07/2022 21:00 BUN 34 mg/dL (High)?? 12/08/2022 00:24 Creatinine-Blood 6.7 mg/dL (High)?? 12/08/2022 00:24 Estimated GFR Creatinine 9 ML/MIN/1.73 M2 ()?? 12/08/2022 00:24 Calcium 8.6 mg/dL ()?? 12/08/2022 00:24 Phosphorus 3.2 mg/dL ()?? 12/08/2022 00:24 Magnesium 1.8 mg/dL ()?? 12/08/2022 00:24 ?? ENDOCRINE/TUMOR MARKER TSH 2.51 uIU/mL ()?? 12/08/2022 00:24 Free T4 1.24 ng/dL ()?? 12/08/2022 00:24 ?? VIROLOGY COVID-19 PCR Specimen Source NASAL ()?? 12/08/2022 05:06 COVID-19 PCR Result NEGATIVE ()?? 12/08/2022 05:06 ?? No qualifying data available ? Assessment/Plan ?? Mr. Small is a very pleasant 67-year-old gentleman with known history of ESRD secondary to diabetic nephropathy, who undergoes intermittent hemodialysis on Thursday, , Thursday at the [facility] via right upper extremity AV fistula, longstanding history of gastric antral vascular ectasia syndrome, prior history of GI bleed, with acute on chronic anemia requiring intermittent blood transfusions. ?? #ESRD 2/2 to DKD on iHD (TTS) via Right IJ Permcath # Anemia of chronic disease requiring frequent??transfusion. ?? The patient has been transfused overnight 12/05. ?? Continue to trend hemoglobin. Will plan to dialyze Thursday unless other needs arise. Will reassess dialysis/ UF needs daily. ?? If stable can be discharged from a renal perspective. Can follow up with is outpatient HD for regular TTS HD. ?? Case discussed with Dr. Cotto. ?? Allan Grahma PGY 4 Nephrology Fellow.? * Rudy Cotto MD I: PERFORM Event Display: Progress Note Hospital Authored Date: ?? I reviewed the patient's history, examined the patient, and confirmed the above findings as documented by the fellow/resident. I personally formulated the essential elements of the assessment and plan noted above. Dr. Cotto?? * Rut Tucker: SIGN, VERIFY, PERFORM Event Display: Progress Note Hospital Authored Date: Patient: SARWAT SMALL Age: 67 years Sex: Male : 1955 Associated Diagnoses: None Author: Rut Tucker Findings Problem Related to Alteration in Tissue Perfusion : Alteration in Tissue Perfusion 12/08/2022 4:00 EDT Alteration Tissue Perfusion related to Anemia Goals & Outcomes: Tissue perfusion Pt will maintain optimal perfusion to vital organs, Pt will resume/maintain adequate peripheral circulation, Pt will experience improved tissue perfusion, Pt will be hemodynamically stable, Pt will achieve normal/improved/optimal neuro status, Pt will maintainadequate GI function appropriate for pt, Pt will maintain adequate function appropriate for pt, Pt will be discharged without infection, Pt/ S.O. will state understanding of plan of care, Pt will be monitored for development of embolic event, Tissue perfusion will improve/return to baseline Interventions: Tissue Perfusion Assess for s/s of infection of lines, drains, incisions, Assess/Monitor activity tolerance, Assess/Monitor cardiac dysrhythmias, Assess/Monitor peripheral pulses &capillary refill, Assess/Monitor vital signs per unit standard & prn, Monitor blood loss, Monitor Intake & Output, Monitor labs & report variances to provider, Physical assessment per unit standards, Report changes in hemodymamics to MD, Teach pt/caregiver discharge plan & follow upcare, Teach pt/caregiver on plan of care, treatment, s/s & meds, Teach pt/caregiver on use of pain scale BH Goals/Interventions, Tissue Perfusion Yes Tissue Perfusion, Problem Start 12/08/2022 4:10 Reviewed Plan with, Tissue Perfusion Patient Patient Progression, Tissue Perfusion Pt progressing according to plan . Narrative/Incidental PT AOx3, C/o of generalized pain, given Tylenol PRN, bilateral AKA, wheelchair in use at baseline, R AV fistula positive for thrill and bruit pt compliant with treatment and care. Pt BP elevated thisshift,covering provider Shante Bob notified, nitro paste administered per order, BP recheck WNL, fall and safety precautions in place. Refer to [facility] for assessments and interventions.. * Barrie Lopez MD: PERFORM Event Display: Progress Note Hospital Authored Date: [id number] Patient: ??SARWAT SMALL ? Age:??67 Years?Sex:??Male?:??1955?? Attending:??Josie ROJAS, Adam D Admission Date: 12/06/2022 ?? Subjective Patient seen and examined, events notes. ? Objective Vital Signs (last 24 hrs) ?Last Charted Heart Rate Peripheral?57 bpm ??(MAR 12 16:08) Resp Rate?18 br/min ??(MAR 12 16:08) SBP?H??156mm Hg ??(MAR 12 16:08) DBP?64 mm Hg ??(MAR 12 16:08) SpO2?100 % ??(MAR 12 16:08) Height?169 cm ??(MAR 12 16:08) Output?? Stool Frequency: 1 (21:00) ? Intake/Output? 12/06 00:02 12/07 07:00 12/06 07:00 12/05 07:00 03 07:00 ?? 12/07 16:56 12/07 16:56 12/07 06:59 12/06 06:59 12/05 06:59 Intake ?174 ?0 ?0 ?174 ?0 Output ? 2200 ?0 ? 2200 ?0 ?0 Net Total ?-2025 ?0 ?-2199 ?174 ?0 ? Physical Exam General: NAD, AAOx4 HEENT: NCAT, MMM Neck: no JVD, neck supple Cardio: normal S1 snd S2, no MRG, RRR Resp: CTAB Abdo:??NT, ND Extremities: No peripheral edema Skin: No rashes or other abnormalities Neuro: Grossly intact ?? BLOOD COUNT & DIFF WBC 3.0 k/mm3 (Low)?? 12/06/2022 19:39 RBC 2.61 m/mm3 (Low)?? 12/06/2022 19:39 Hgb 8.0 Gm/dL (Low)?? 12/06/2022 19:39 Hct 25.7 % (Low)?? 12/06/2022 19:39 MCV 98.5 femtoliters (High)?? 12/06/2022 19:39 MCH 30.7 pg ()?? 12/06/2022 19:39 MCHC 31.1 g/dL (Low)?? 12/06/2022 19:39 Platelet Count 106 k/mm3 (Low)?? 12/06/2022 19:39 RDW-SD 58.5 femtoliters (High)?? 12/06/2022 19:39 MPV 12.0 femtoliters ()?? 12/06/2022 19:39 Nucleated RBC (Automated) 0.0 #/100 WBC'S ()?? 12/06/2022 19:39 Abs. NRBC 0.0 k/mm3 ()?? 12/06/2022 19:39 ?? CARDIAC High Sensitivity Troponin (HSTnT) 102 ng/L (Critical)?? 12/06/2022 11:32 ?? CHEM GENERAL Glucose, POC 82 mg/dL ()?? 12/07/2022 16:23 ?? No qualifying data available ? Assessment/Plan ??Mr. Small is a very pleasant 67-year-old gentleman with known history of ESRD secondary to diabetic nephropathy, who undergoes intermittent hemodialysis on Thursday, , Thursday at the [facility] via right upper extremity AV fistula, longstanding history of gastric antral vascular ectasia syndrome, prior history of GI bleed, with acute on chronic anemia requiring intermittent blood transfusions. The patient has been transfused overnight 12/05. ??Continue to trend hemoglobin. Will plan to dialyze Thursday unless other needs arise. Will reassess dialysis/ UF needs daily. ?? Barrie Lopez MD. Dock Operator [employer] [facility] Note * Leeann Rojas RN: PERFORM Event Display: Discharge/Transfer Note Hospital Authored Date: [id number] Nursing Discharge Note Entered On: 12/08/2022 16:11 EDT Performed On: 12/08/2022 16:10 EDT by Leeann Rojas RN Nursing Discharge Note 2 Discharge Time : 12/08/2022 16:10 EDT Discharge Level of Care at Discharge : [facility] facility Discharge Nursing Homes/Rehab Facilities : [facility] [phone] Patient Left Unit Via : Ambulance Patient Accompanied Off Unit with : Ambulance/Chair Van Personnel Handover Given to Transport Personnel : Yes DC Instructions Provided & Signed by Pt : No Patient Understands D/C Instructions : No Patient Instructions Discharge Signed : No Did Pt have Specialty Bed or Wound Vac : No Leeann Rojsa RN - 12/08/2022 16:10 EDT * Josie ROJAS, Adam D: PERFORM Event Display: Discharge/Transfer Note Hospital Authored Date: [id number] Patient: ??SARWAT SMALL ? Age:??67 Years?Sex:??Male?:??1955?? Patient Information Discharge Location: Primary Care Physician: Ashley Byrne MD Admit Date/Time: 12/06/22 00:02 Discharge Disposition Discharge Disposition: Back??to his??[facility] Discharge Diagnosis Acute on chronic anemia (D64.9) Anemia of chronic disease (D63.8) Chronic hypoxemic respiratory failure (J96.11) Coronary artery disease (I25.10) Diabetes (E11.9) ESRD on dialysis (N18.6) GAVE (gastric antral vascular ectasia) (K31.819) History of COPD (Z87.09) Pancytopenia (D61.818) Peripheral vascular disease (I73.9) Anemia of chronic disease COPD (chronic obstructive [...] 0.2 mg oral tablet)?0.2?Milligram?1?tablet?By Mouth?2 times a day?Every Tue, Th, Sat Clonidine (cloNIDine 0.2 mg oral tablet)?0.2?Milligram?1?tablet?By Mouth?3 times a day?Every Thu, Thu, Thu, Thu Docusate (docusate sodium 100 mg oral capsule)?100?Milligram?1?capsule?By [...] times a day?before meals ? Medications Started PRN hydralazine Medications Discontinued none Doses Changed NONE Allergies Allergies ?(Active and Proposed Allergies Only) lisinopril? (Severity: Unknown severity, Onset: Unknown) ? PCP Follow-Up/Heads-Up 1. ??Patient admitted with anemia received 1 unit of PRBCs 2. ??Patient also with pancytopenia needs to follow-up with oncology outpatient #3. ??It would be beneficial to have patient follow-up sooner??and have blood count was done??preferably within 1 to 2 weeks of discharge. Hospital Course ??Chief Complaint: coming from [facility] and ??did stat lab and saw his hgb was 6.3 and HCT 20.3 pt states having stabbing pain in chest that jhappens everytime they do a 12 lead. ?? 67 YOM with pertinent PMH of ESRD???on HD, CAD s/p CABG, PAD s/p bilateral AKA, HTN, HLD, hypothyroidism, DM, COPD???on 2L via NC and chronic anemia 2/2 CKD/CLD plus GAVE syndrome has now presented with fatigue and hemoglobin of 6.3. ??Patient denies any melena??or bright red bleeding per rectum. ??Status post 1 unit of PRBCs with?more than appropriate correction??and hemoglobin remained stable ?? #Acute on chronic anemia: #Anemia of chronic disease: Multifactorial anemia given CKD, CLD, GAVE syndrome and ?possible multiple nutritional deficiencies. -Last EGD:normal esophagus, normal duodenum, erosions in the whole stomach given GAVE.?? Colonoscopy could not be done as patient was poorly prepared as he kept on refusing GoLytely for 2 days in a row -She has been eval by hematology during her admission in 05/19 with extensive work-up including negative HIV, free kappa lambda ratio of 1.82, however negative serum electrophoresis.?? Normal B12, folate, iron panel.?? Given the patient had low haptoglobin, however had normal fibrinogen.?? He was recommended to follow-up with hematology outpatient, whom he sees at [facility] -Last work-up done on 11/25 with iron, B12, folate level normal.?? Haptoglobin less than 10, howevernormal fibrinogen?? -patient's hemoglobin 8??from 6 on presentation after transfusion 1 unit -Patient on ferrous sulfate??and multivitamin ?? # Pancytopenia??due to unclear etiology??:??White count??3, hemoglobin 6,??platelet??around 100??onpresentation -Patient B12 and folic acid??in late 2021 was normal, HIV negative recently,??TSH borderline elevated??however free T4??normal recently, repeat TSH and free T4. -Patient will need to follow-up outpatient hematology ? #ESRD: On HD: -Patient usually gets dialysis done on Tuesdays/ and Saturdays, status post dialysis?? on thursday . will get dialysed outpatient tomorrow . D/w Nephrology , ok for discharge ? #Coronary artery disease (I25.10):?? #Peripheral vascular disease (I73.9):?? Not on antiplatelets or anticoagulants due to high risk of GI bleeding ? #Hypertension (I10):?? #hypertensive urgency - BP in 130s -Continue Coreg 25 twice daily,??isosorbide 60 mg daily, nifedipine??60 mg extended release - continue clonidine home regimen - Patient will continue Hydralazine 25 mg PO?? TID if BP remains above 140 systolic? #Diabetes mellitus: POC glucose with meals and at bedtime Cover with insulin sliding scale Hypoglycemic protocol in place ?? #COPD (chronic obstructive pulmonary disease):?? # Chronic hypoxic respiratory failure Rescue beta agonist inhalers as needed Not on long-term meds Continue nocturnal and as needed O2 Supplementation, patient reports he is on 3 L at home ?? #Chronic pain syndrome:?? Continue pain management (gabapentin + as needed oxycodone ) as being done in the outpatient Bowel regimen in place ?? # h/o of GAVE : continue protonix and sucralfate ? #Hyperlipidemia:Continue atorvastatin ??#Hypothyroidism:??Continue levothyroxine 200 mcg daily??chronic hypoxic respiratory failure ? -Diet : Renal diet -VTE Prophylaxis:??Not on anticoagulation due to possible active bleeding,Pneumoboots FULL CODE ? patient being discharged??back to his facility . D/w Nurse , CM and Nephrology ?? Objective Assessment and Plan Discharge Planning:? Vital Signs?? Temperature: 97.6 DegF (12/08/22 11:13:00) Temperature Route: Oral (12/08/22 11:13:00) Pulse Rate: 61 bpm (12/08/22 11:13:00) Respiratory Rate: 18 br/min (12/08/22 11:13:00) Systolic Blood Pressure: 132 mm Hg (12/08/22 11:13:00) Diastolic Blood Pressure:??93 mm Hg??High (12/08/22 11:13:00) Blood pressure sites: Arm, right (12/08/22 11:13:00) Mean Arterial Pressure: 106 mm Hg (12/08/22 11:13:00) Pulse Pressure: 39 mm Hg (12/08/22 11:13:00) Oxygen Saturation: 100 % (12/08/22 11:13:00) Liters per Minute: 3 L/min (12/08/22 11:13:00) Mode of Delivery (Oxygen): Nasal cannula (12/08/22 11:13:00) Early Warning Score: 9 (12/08/22 11:13:41) ? . Physical Exam General: Is appears comfortable in no distress HEENT: ??mucous mucous membranes appear wet, PERRLA Cardiovascular: S1-S2 heard no murmurs appreciated Respiratory: CTA without any wheezing or crackles anteriorly GI: Abdomen nontender to palpation, no distention, no obvious hepatosplenomegaly Neuro: AOx3 plus date of , bilateral??AKA Psych: Appears calm without any agitation Consultants nephrology Pending Results Add On Lab Order ordered on 12/05/2022 Blood Culture ordered on 12/05/2022 Blood Culture #2 ordered on 12/05/2022 COVID-19 (2019 Novel Coronavirus) PCR ordered on 12/08/2022 COVID-19 (2019 Novel Coronavirus) PCR ordered on 12/08/2022 High??Sensitivity??Troponin T ordered on 12/05/2022 Transfuse RBCs ordered on 12/05/2022 Follow-Up Appointments Added Follow Up ?Time Frame ?Comments [facility] hematology?1 to 2 weeks?Please call [phone] to schedule an appointment with hematology??to do more work- up??related to low blood counts Ashley Byrne MD?1 to 2 weeks Patient Instructions #1.?? Patient is to follow-up with [facility] hematology given low blood counts/pancytopenia, number has been provided please call at the office and schedule an appointment. #2. ??No significant changes have been made in patient's??blood pressure ??medication regimen. ??Hydralazine 25 mg??3 times daily??can be given if blood pressure remains above 140 Systolic ??in spiteof all his home blood pressure medications.?? But if it remains less than 140 systolic ??hold the dose??at that time.?? [facility]??he can be put on scheduled doses??at a later time. Post Discharge Care Diet: Renal diet Activity: Ambulate with assistance ??3 times a day ??unless otherwise specified Discharge ?12/08/22 13:20:00 EDT Home Health Face to Face ^HomeHealthFTF Results Discharge Labs BLOOD BANK Blood Type O Positive ()?? 12/05/2022 21:04 Antibody Screen Positive ()?? 12/05/2022 21:04 RBC Unit ID [id number] ()?? 12/05/2022 23:45 RBC Available PT ()?? 12/05/2022 23:45 ?? BLOOD COUNT & DIFF WBC 3.9 k/mm3 (Low)?? 12/08/2022 00:24 RBC 2.62 m/mm3 (Low)?? 12/08/2022 00:24 Hgb 7.9 Gm/dL (Low)?? 12/08/2022 00:24 Hct 24.2 % (Low)?? 12/08/2022 00:24 MCV 92.4 femtoliters ()?? 12/08/2022 00:24 MCH 30.2 pg ()?? 12/08/2022 00:24 MCHC 32.6 g/dL (Low)?? 12/08/2022 00:24 Platelet Count 78 k/mm3 (Low)?? 12/08/2022 00:24 RDW-SD 53.6 femtoliters (High)?? 12/08/2022 00:24 MPV 13.6 femtoliters (High)?? 12/08/2022 00:24 Nucleated RBC (Automated) 0.0 #/100 WBC'S ()?? 12/08/2022 00:24 Abs. NRBC 0.0 k/mm3 ()?? 12/08/2022 00:24 Abs. Neut 2.2 k/mm3 ()?? 12/05/2022 21:13 Abs. Lymph 0.7 k/mm3 (Low)?? 12/05/2022 21:13 Abs. [place] 0.3 k/mm3 (Low)?? 12/05/2022 21:13 Abs. Eo 0.1 k/mm3 ()?? 12/05/2022 21:13 Abs. Baso 0.0 k/mm3 ()?? 12/05/2022 21:13 Neut % 67.0 % ()?? 12/05/2022 21:13 Lymph % 19.8 % ()?? 12/05/2022 21:13 [place] % 9.3 % ()?? 12/05/2022 21:13 Eos % 3.0 % ()?? 12/05/2022 21:13 Baso % 0.3 % ()?? 12/05/2022 21:13 Hemoglobin (POC) POC Cartridge 6.5 Gm/dL (Low)?? 12/05/2022 21:32 Hematocrit (POC) POC Cartridge 19 % (Critical)?? 12/05/2022 21:32 Imm Gran 0.6 % ()?? 12/05/2022 21:13 Abs. Imm Gran 0.0 k/mm3 ()?? 12/05/2022 21:13 ?? CARDIAC Nt-Probnp >46793 pg/mL (High)?? 12/05/2022 21:15 High Sensitivity Troponin (HSTnT) 102 ng/L (Critical)?? 12/06/2022 11:32 ?? CHEM GENERAL Sodium 134 mmol/L ()?? 12/08/2022 00:24 Potassium 4.2 mmol/L ()?? 12/08/2022 00:24 Chloride 93 mmol/L (Low)?? 12/08/2022 00:24 Bicarbonate Level 27 mmol/L ()?? 12/08/2022 00:24 Anion Gap 14 ()?? 12/08/2022 00:24 Sodium (POC) POC Cartridge 139 mmol/L ()?? 12/05/2022 21:32 Potassium (POC) POC Cartridge 3.8 mmol/L ()?? 12/05/2022 21:32 Chloride (POC) POC Cartridge 102 mmol/L ()?? 12/05/2022 21:32 Glucose Level 98 mg/dL ()?? 12/08/2022 00:24 Glucose (POC) POC Cartridge 138 (High)?? 12/05/2022 21:32 Glucose, POC 139 mg/dL (High)?? 12/07/2022 21:00 BUN 34 mg/dL (High)?? 12/08/2022 00:24 BUN (POC) POC Cartridge 34 mg/dL (High)?? 12/05/2022 21:32 Creatinine-Blood 6.7 mg/dL (High)?? 12/08/2022 00:24 Creatinine (POC) POC Cartridge 6.8 mg/dL (High)?? 12/05/2022 21:32 Estimated GFR Creatinine 9 ML/MIN/1.73 M2 ()?? 12/08/2022 00:24 Calcium 8.6 mg/dL ()?? 12/08/2022 00:24 Ionized Calcium (POC) POC Cartridge 0.96 mmol/L (Critical)?? 12/05/2022 21:32 Phosphorus 3.2 mg/dL ()?? 12/08/2022 00:24 Magnesium 1.8 mg/dL ()?? 12/08/2022 00:24 Lactate 0.9 mmol/L ()?? 12/05/2022 22:28 ? ENDOCRINE/TUMOR MARKER TSH 2.51 uIU/mL ()?? 12/08/2022 00:24 Free T4 1.24 ng/dL ()?? 12/08/2022 00:24 ?? VIROLOGY COVID-19 by RT-PCR NEGATIVE ()?? 12/05/2022 20:03 ? Imaging(s) ?Chest Portable ?? 12/05/2022 22:56??by Anderson Kumar MD ?IMPRESSION: ?? Groundglass opacity both lungs demonstrating symmetric relatively simple appearance. Possible findings of pulmonary edema. Pneumonia not excluded. ? Consults(s) ?Consultation Note ?? 12/06/2022 12:36??by Art Conklin MD ? 32 ??minutes spent on discharge * Felisha Shirley RN: VERIFY, PERFORM, SIGN Event Display: Case Management Discharge Plan Authored Date: [id number] Patient: SARWAT SMALL Age: 67 years Sex: Male : 1955 Associated Diagnoses: None Author: Felisha Shirley RN Discharge Plan Case Management Discharge Plan : Case Management Discharge Plan Data 12/08/2022 12:37 EDT Discharge Level of Care at Discharge [facility] facility Discharge Nursing Homes/Rehab Facilities [facility] [phone] Discharge Transportation Arranged [facility] [address] [facility] [id number] [phone] Mode of Transportation Arranged Ambulance Name of Agency #1 [facility] Assistant #1 intake Service Categories #1 Physical Therapy, Usp Service Comments #1 You are returning to [facility] [place] today by ambulance. 12/08/2022 12:32 EDT Discharge Nursing Homes/Rehab Facilities [address] * Rohith JAY, Meaghan Blue: PERFORM Event Display: Patient Education/Instruction Authored Date: [id number] Inpatient Adult Discharge Instructions [address] [address] Name: SARWAT SMALL : 1955 Visit: 12/06/2022 00:02:00 Current Date: 12/08/2022 15:15 Account: [id number] Inpatient Adult Discharge Instructions We would like [...] and their families. Surveys are administered by [employer] ?? If further treatment with your primary care physician or another doctor is recommended, it is important for you to keep the appointment. Call your primary care physician or return to the Emergency Department immediately if your condition worsens, fails to improve, or new symptoms develop. If you need to find a doctor, you can call [facility] for a referral at [phone] or toll free at [phone] [phone] ([phone]) or log in to [email or web address].. ?? You can view and manage your care through the patient portal or by using a health care zeina of your choosing. Phantom is a website that allows you to securely view your medical information including your hospital discharge summary, office visit summaries, medications and follow-up visits. You can also request appointments, renew medications, and request access to your medical information using a health care zeina of your choosing, or just ask a question. You can enroll at [email or web address] or register during your next office visit. You have been discharged from [facility], Patient Care Unit: W3. If you have any questions regarding these instructions after you leave, please call us and we will be happy to assist you. [facility] Your Care Team Attending Physician Adam Galindo MD Consulting Providers Art Conklin MD Discharging Providers Adam Galindo MD Reason for Admission coming from [facility] and did stat lab and saw his hgb was 6.3 and HCT 20.3 pt states having stabbing pain in chest that jhappens everytime they do a 12 lead. Your Diagnosis Anemia of chronic disease Acute on chronic anemia Anemia of chronic disease ESRD on dialysis Pancytopenia Coronary artery disease Peripheral vascular disease Diabetes Chronic hypoxemic respiratory failure History of COPD GAVE (gastric antral vascular ectasia) Tests Performed Below is a partial list of the tests performed during your hospitalization. You may have had other tests and procedures not included in this list. Please discuss all test results with your provider. Basic Metabolic Panel BUN POC CARTRIDGE CALCIUM IONIZED POC CART CBC CBC w/ Differential CHLORIDE POC CARTRIDGE COVID-19 (2019 Novel Coronavirus) PCR COVID-19 (Novel Coronavirus), Rapid PCR CREATININE POC CARTRIDGE Free T4 GLUCOSE POC GLUCOSE POC CARTRIDGE HEMATOCRIT POC CARTRIDGE HEMOGLOBIN POC CARTRIDGE High??Sensitivity??Troponin T Lactate Level Magnesium Level Phosphorus Level POTASSIUM POC CARTRIDGE ProBNP SODIUM POC CARTRIDGE Troponin T, High Sensitivity TSH Type and Screen XR Chest Portable Primary Care Provider Ashley Byrne MD Advance Directive Health Care Proxy on File Yes - Health Care Proxy Yes - MOLST Discharge Vitals Temperature: 98.5 DegF Height: 169 cm Pulse Rate: 56 bpm Weight: 56.3 kg Respiratory Rate: 18 br/min Body Mass Index: 19.71 kg/m2 Systolic Blood Pressure:??140 mm Hg??High Body surface area: 1.63 Diastolic Blood Pressure: 55 mm Hg ?? Oxygen Saturation: 100 % ?? Studies Pending All tests and labs ordered during this hospital stay have been completed unless listed below. Please discuss all pending results with your provider listed above in these instructions. ?? Add On Lab Order Blood Culture Blood Culture #2 COVID-19 (2019 Novel Coronavirus) PCR (COVID-19 (NOVEL CORONAVIRUS) PCR) High??Sensitivity??Troponin T (Troponin T, High Sensitivity) Transfuse RBCs What to do next Instructions From Your Doctor #1.?? Patient is to follow-up with [facility] hematology given low blood counts/pancytopenia, number has been provided please call at the office and schedule an appointment. #2. ??No significant changes have been made in patient's??blood pressure ??medication regimen. ??Hydralazine 25 mg??3 times daily??can be given if blood pressure remains above 140 Systolic ??in spiteof all his home blood pressure medications.?? But if it remains less than 140 systolic ??hold the dose??at that time.?? [facility]??he can be put on scheduled doses??at a later time. Discharge Orders Diet:??Renal diet Activity:??Ambulate with assistance 3 times a day unless otherwise specified You Need to Schedule the Following Appointments Follow Up with??[facility] hematology When??Within 1 to 2 weeks Why: Please call [phone] to schedule an appointment with hematology??to do more work-up??relatedto low blood counts Where: [address] [place] [address]- [phone] Follow Up with??Ashley Byrne MD When??Within 1 to 2 weeks Where: [address] [place] [address] [place] [address]- Discharge Medications SARWAT SMALL :1955 Visit Date:12/06/2022 Medications: Please continue your medications until treatment is completed or stopped by your provider. Medications not listed below should be discontinued. Discuss any questions related to medications with your provider. What How Much When Instructions Next Dose New hydrALAZINE (hydrALAZINE 25 mg oral tablet) 1 tab(s) Oral 3 times a day as needed for Blood Pressure Duration: 30 Days Give if BP > 140 inspite of all his other BP ??meds ?? take as directed Unchanged Acetaminophen (acetaminophen 325 mg oral tablet) 2 tab(s) Oral Every 6 hours as needed for as needed for fever/pain take as directed Unchanged Atorvastatin (atorvastatin 80 mg oral tablet) 1 tab(s) Oral Daily at Bedtime next dose due 12/08 at 9pm Unchanged Bisacodyl (Dulcolax 10 mg rectal suppository) 1 suppository(ies) Per rectum Daily as needed for as needed for constipation take as directed Unchanged Brimonidine Ophthalmic (brimonidine 0.2% ophthalmic solution) 2 Drops Both eyes Twice a day next dose due 12/08 at 9pm Unchanged Carvedilol (carvedilol 25 mg oral tablet) 1 tab(s) Oral Twice a day next dose due 12/08 at 9pm Unchanged Cholecalciferol (cholecalciferol 50,000 intl units oral capsule) 1 capsule Oral Every 30 days on the ?? next dose due today 12/08 at 4pm Unchanged Clonidine (cloNIDine 0.2 mg oral tablet) 1 tab(s) Oral 3 times a day Every Thu, Mon, Wed, Thu ?? next dose due 12/08 at 9pm Unchanged Clonidine (cloNIDine 0.2 mg oral tablet) 1 tab(s) Oral Twice a day Every Thu, , Thu ?? next dose due 12/09 at 9am Unchanged Docusate (docusate sodium 100 mg oral capsule) 1 capsule Oral Twice a day next dose due 12/08 at 9pm Unchanged Epoetin Jose 20,000 unit(s) IV Push Slowly Thursday, Thursday and Thursday (NOT ON CURRENT PAPER CHART) ?? resume previous schedule Unchanged Ferrous Sulfate (ferrous sulfate 325 mg oral enteric coated tablet) 325 Milligram Oral 3 times a day next doses due 12/08 at 9pm Unchanged Gabapentin (gabapentin 100 mg oral capsule) 2 capsule Oral Daily at Bedtime next dose due 12/08 at?? 9pm Unchanged Isosorbide Mononitrate (Imdur ER) 60 Milligram Oral Daily Hold for systolic BP<100 mm Hg ?? next dose due 12/09 at 9am Unchanged Levothyroxine (levothyroxine 200 mcg (0.2 mg) oral capsule) 1 capsule Oral Daily next dose due 12/09 at 7am Unchanged Lidocaine Thursday, Thursday and Thursday NOT ON PAPER CHART ?? resume previous schedule Unchanged Multivitamin (Vitamin B Complex oral tablet, extended release) 1 tab(s) Oral Daily next dose due 12/09 at 9am Unchanged nalOXONE (Narcan 4 mg/ 0.1 mL nasal spray) 4 Milligram Naris, Left Once as needed for as needed as directed Unchanged nalOXONE (Narcan Inj) 1 Milliliter Intramuscular Once as needed for as needed as directed Unchanged NIFEdipine (NIFEdipine 60 mg oral tablet, extended release) 1 tab(s) Oral Twice a day Hold for systolic BP<100 mm Hg ?? next dose due 12/08 at 9pm Unchanged Pantoprazole (pantoprazole 40 mg oral delayed release tablet) 1 tab(s) Oral Twice a day next dose due 12/08 at 9pm Unchanged Sucralfate (sucralfate 1 gm oral tablet) 1 tab(s) Oral Twice a day before meals ?? next dose due 12/08 at 5pm Test Results Below is a partial list of the most recent Laboratory test results done prior to this discharge. You may have had other tests and procedures not included in this list. Please discuss all test resultswith your provider. RBC Available - PT (12/05/2022) RBC Unit ID - [id number] (12/05/2022) Basic Metabolic Panel (12/08/2022) ???Sodium - 134 mmol/L???Potassium - 4.2 mmol/L???Chloride - 93 mmol/L???Bicarbonate Level - 27 mmol/L???Anion Gap - 14???Glucose Level - 98 mg/dL???BUN - 34 mg/dL???Creatinine-Blood - 6.7 mg/dL???Estimated GFR Creatinine - 9 ML/MIN/1.73 M2???Calcium - 8.6 mg/dL BUN POC CARTRIDGE (12/05/2022) ???BUN (POC) POC Cartridge - 34 mg/dL CALCIUM IONIZED POC CART (12/05/2022) ???Ionized Calcium (POC) POC Cartridge - 0.96 mmol/L CBC (12/08/2022) ???WBC - 3.9 k/mm3???RBC - 2.62 m/mm3???Hgb - 7.9 Gm/dL???Hct - 24.2 %???MCV - 92.4 femtoliters???MCH - 30.2 pg???MCHC - 32.6 g/dL???Platelet Count - 78 k/mm3???RDW-SD - 53.6 femtoliters???MPV - 13.6femtoliters???Nucleated RBC (Automated) - 0.0 #/100 WBC'S???Abs. NRBC - 0.0 k/mm3 CBC w/ Differential (12/05/2022) ???WBC - 3.3 k/mm3???RBC - 2.05 m/mm3???Hgb - 6.1 Gm/dL???Hct - 20.0 %???MCV - 97.6 femtoliters???MCH - 29.8 pg???MCHC - 30.5 g/dL???Platelet Count - 76 k/mm3???RDW-SD - 61.2 femtoliters???MPV - 12.5femtoliters???Nucleated RBC (Automated) - 0.0 #/100 WBC'S???Abs. NRBC - 0.0 k/mm3???Abs. Neut - 2.2 k/mm3???Abs. Lymph - 0.7 k/mm3???Abs. [place] - 0.3 k/mm3???Abs. Eo - 0.1 k/mm3???Abs. Baso - 0.0 k/mm3???Neut % - 67.0 %???Lymph % - 19.8 %???[place] % - 9.3 %???Eos % - 3.0 %???Baso % - 0.3 %???Imm Gran - 0.6 %???Abs. Imm Gran - 0.0 k/mm3 CHLORIDE POC CARTRIDGE (12/05/2022) ???Chloride (POC) POC Cartridge - 102 mmol/L COVID-19 (2019 Novel Coronavirus) PCR (12/08/2022) ???COVID-19 PCR Specimen Source - NASAL???COVID-19 PCR Result - NEGATIVE COVID-19 (Novel Coronavirus), Rapid PCR (12/05/2022) ???COVID-19 by RT-PCR - NEGATIVE CREATININE POC CARTRIDGE (12/05/2022) ???Creatinine (POC) POC Cartridge - 6.8 mg/dL Free T4 (12/08/2022) ???Free T4 - 1.24 ng/dL GLUCOSE POC (12/07/2022) ???Glucose, POC - 139 mg/dL GLUCOSE POC CARTRIDGE (12/05/2022) ???Glucose (POC) POC Cartridge - 138 HEMATOCRIT POC CARTRIDGE (12/05/2022) ???Hematocrit (POC) POC Cartridge - 19 % HEMOGLOBIN POC CARTRIDGE (12/05/2022) ???Hemoglobin (POC) POC Cartridge - 6.5 Gm/dL High??Sensitivity??Troponin T (12/05/2022) ???High Sensitivity Troponin (HSTnT) - 111 ng/L Lactate Level (12/05/2022) ???Lactate - 0.9 mmol/L Magnesium Level (12/08/2022) ???Magnesium - 1.8 mg/dL Phosphorus Level (12/08/2022) ???Phosphorus - 3.2 mg/dL POTASSIUM POC CARTRIDGE (12/05/2022) ???Potassium (POC) POC Cartridge - 3.8 mmol/L ProBNP (12/05/2022) ? ?Nt-Probnp - >86835 pg/mL SODIUM POC CARTRIDGE (12/05/2022) ???Sodium (POC) POC Cartridge - 139 mmol/L Troponin T, High Sensitivity (12/06/2022) ???High Sensitivity Troponin (HSTnT) - 102 ng/L TSH (12/08/2022) ???TSH - 2.51 uIU/mL Type and Screen (12/05/2022) ???Blood Type - O Positive???Antibody Screen - [...] Belongings I fully understand and agree that [facility] accepts no responsibility for all [...] Review of Valuable and Belonging List: With patient, With witness Date for Pt to Sign Valuables/Belongings: 12/06/22 16:53:00 ?? Other Discharge Information ? Case Management Discharge Plan?? Discharge Plan?? Discharge Agency Information?? Discharge Level of Care at Discharge: [facility] facility Name of Agency #1: [facility] Discharge Transportation Arranged: [facility] [address] [facility] [phone] Agency Museum Assistant #1: intake Mode of Transportation Arranged: Ambulance Service Categories #1: Physical Therapy, Usp Discharge Nursing Homes/Rehab Facilities: [facility] [place] ??[phone] Service Comments #1: You are returning to [facility] [place] today by ambulance. ?? Pulmonary Rehab Status?? Pulmonary Rehab Discharge Status?? [...] are strongly encouraged to quit. Please call [facility] [employer] [facility] at [phone] or [phone] ([phone]) or log in to [email or web address] for referrals to smoking cessation programs. ?? The National Suicide Prevention Hotline is available 20/04 if you or someone you know needs to find a reason to keep living. By calling 9-211-987-Rayneer (8023) you'll be connected to a skilled, trained counselor at a crisis center in your area. INPATIENT DISCHARGE INSTRUCTIONS SIGNATURE PAGE SARWAT SMALL Location:[facility] Registration Date and Time:12/06/2022 00:02 [facility] Primary Care Physician: Ashley Byrne MD, I SARWAT SMALL, have received the above patient education materials/instructions and have verbalized understanding. If ambulance or transport services are being used I further acknowledge being given a choice of service. ?? If you need to contact me, please call me at this number: . Patient/Sales Force Developer Name: Patient/Sales Force Developer Signature: Relationship to Patient: Witness Name/Signature: Date: Portable XR Chest Views * BHSPowerscribe , CIS S: TRANSCRIBE Anderson Kumar MD: VERIFY Event Display: Result: Authored Date: [id number] Chest Portable Hx of Present Illness: low H H; Reason: Shortness of Breath; Clinical Question(s): CHF COMPARISON: 10/30/2022 FINDINGS: LINES AND TUBES: None. LUNGS AND PLEURA: Diffuse patchy density noted in both lung hogan. This appears relatively symmetric and would be consistent with pulmonary edema. No pleural effusion. No pneumothorax. HEART, MEDIASTINUM AND JOSELYN: Heart is normal in size. Normal mediastinal and hilar contour. BONES AND SOFT TISSUES: No acute abnormality. IMPRESSION: Groundglass opacity both lungs demonstrating symmetric relatively simple appearance. Possible findings of pulmonary edema. Pneumonia not excluded. WSN: [id number] Ordering Physician: Zayda Sultana Dictated By: Anderson Kumar MD Dictated Date/Time: 12/05/22 11:09 p Reviewed By: Anderson Kumar MD Signed By: Anderson Kumar MD Signed Date/Time: 12/05/22 11:09 pm Transcribed By: WILFREDO Transcribed Date/Time: 12/05/22 11:07 pm Patient Care team information Care Team Personnel Name: Capri Bush RN Position: S RN Member Role: Primary Care Nurse Name: Arlen Hale LPN Position: S RN Member Role: Primary Care Nurse Name: Chloe Dhaliwal RN Position: S RN Member Role: Primary Care Nurse Name: Laureano Crawley RN Position: S RN Member Role: Primary Care Nurse Name: Mary Ellen Mcdonald NP Position: [facility] Associate Professional Member Role: Lifetime Consulting Provider Address: Address: [address] [place], [place] [address] [place] [address]- Name: Barrie Lopez MD Position: [facility] Renal MD Member Role: Lifetime Consulting Physician Address: Address: [address] [place], [place] [address]E [facility] [place] [address]- Name: Dread Trent RN Position: [facility] RN Member Role: Primary Care Nurse Name: Wojciech Arriaga RN Position: [facility] RN Member Role: Primary Care Nurse Name: Jodi Parr RN Position: [facility] RN Member Role: Primary Care Nurse Name: Nasreen Gamble RN Position: [facility] OB RN Member Role: Primary Care Nurse Name: Marvin Dooley DO Position: [facility] Renal MD Member Role: Lifetime Consulting Physician Address: Address: [address] [place], [place] [address]E [facility] [address] Name: Fermín Dominguez III, RN Position: [facility] RN Member Role: Primary Care Nurse Name: Rut Tucker Position: S RN Member Role: Primary Care Nurse Name: Gutierrez Anderson MD Position: [facility] Renal MD Member Role: Lifetime Consulting Physician Address: Address: [address] [place] [address] [address] [facility] [address]- [place] Name: Leeann Brown RN Position: [facility] RN Member Role: Primary Care Nurse Name: Pepe Brown RN Position: S RN Member Role: Primary Care Nurse Name: Kassy Jo RN Position: S RN Member Role: Primary Care Nurse Name: Leeann Rojas RN Position: S RN Member Role: Primary Care Nurse Name: Patricia Chase RN Position: [facility] RN Member Role: Primary Care Nurse Name: Felisha Simon Position: [facility] RN Member Role: Primary Care Nurse Name: Martha Lawson RN Position: [facility] RN Member Role: Primary Care Nurse Name: Stephen Hua RN Position: [facility] RN Member Role: Primary Care Nurse Name: Geraldine Whyte RN Position: [facility] RN Member Role: Primary Care Nurse Name: Ashley Byrne MD Position: [facility] Outreach Member Role: PCP Address: Address: [address] [place] [address] [place], [place] [address] Name: Janna Valverde RN Position: [facility] RN Member Role: Primary Care Nurse Name: Kyle Matthews RN Position: [facility] RN Member Role: Primary Care Nurse Name: Judi Phillips RN, I Position: [facility] RN Member Role: Primary Care Nurse Name: Franky BLANKENSHIP Attending Position: [facility] ED Medicine Name: Laura Hylton RN Position: [facility] ED RN W/OE and Tasks Member Role: Patient Care Provider Name: Ananth Perera Position: [facility] ED TA [facility] Member Role: Electromechanical Inspector Care Team Related Persons Name: DANNA ORR Address: [place] [address]
--- OUTSIDE RECORDS SUMMARY | 2023-08-23 07:13 | XMS_ITS | Continuity of Care Document ---
Author Name Unknown Organization [facility] Address [address] [place] [address]- Care Team Providers Care Shipping Room Supervisor Name Role Phone Cesar ROJAS, Rasta Primary Care Physician [place] [facility] [place](s): 05/19/23 - 06/18/23 [facility] [address] [place] [address]- [place] Allergies, Adverse Reactions, Alerts Substance Reaction Severity Status lisinopril Active Immunizations Given and Recorded Vaccine Date Status Refusal Reason [id number] 12y+ bivalent booster vax 08/01/22 Recorded SARS-CoV-2 (COVID-19) mRNA-1273 vaccine 07/04/22 R ecorded SARS-CoV-2 (COVID-19) mRNA-1273 vaccine 11/13/20 R ecorded SARS-CoV-2 (COVID-19) mRNA-1273 vaccine 10/15/20 R ecorded SARS-CoV-2 mRNA (wqionyf-ckke-wupav) vax 02/04/22 Recorded SARS-CoV-2 (COVID-19) mRNA BNT-162b2 [...] req; Start Date: 05/27/22 Status: Ordered ergocalciferol 82248 iu oral capsule 13799 Unknown, Oral, 0 Refill(s), Take 50,000 Units [...] Team Personnel Name: Capri Bush RN Position: [facility] RN Member Role: Primary Care Nurse Name: Linda La RN Position: [facility] Outreach Member Role: Primary Care Nurse Name: Arlen Hale LPN Position: [facility] RN Member Role: Primary Care Nurse Name: Chloe Dhaliwal RN Position: [facility] RN Member Role: Primary Care Nurse Name: Laureano Crawley RN Position: [facility] RN Member Role: Primary Care Nurse Name: Mary Ellen Mcdonald NP Position: [facility] Associate Professional Member Role: Lifetime Consulting Provider Address: Address: [address] [place] [address] [facility] [address] Name: Barrie Lopez MD Position: [facility] Renal MD Member Role: Lifetime Consulting Physician Address: Address: [address] [place], [place] [address]E [facility] [address] Name: Dread Trent RN Position: [facility] RN Member Role: Primary Care Nurse Name: Wojciech Arriaga RN Position: [facility] RN Member Role: Primary Care Nurse Name: Jodi Parr RN Position: [facility] RN Member Role: Primary Care Nurse Name: Nasreen Gamble RN Position: [facility] OB RN Member Role: Primary Care Nurse Name: Marvin Dooley DO Position: [facility] Renal MD Member Role: Lifetime Consulting Physician Address: Address: [address] [place], [place] [address]E [facility] [address] [place] Name: Fermín Dominguez III, RN Position: [facility] RN Member Role: Primary Care Nurse Name: Rut Tucker Position: [facility] RN Member Role: Primary Care Nurse Name: Ham Floyd RN Position: [facility] RN Member Role: Primary Care Nurse Name: Gutierrez Anderson MD Position: [facility] Renal MD Member Role: Lifetime Consulting Physician Address: Address: [address] [facility] [place] [address]- [place] Name: Rasta Guerrero MD Position: [facility] Outreach Member Role: PCP Address: Address: [address] [facility] [place] [address]- [place] Name: Leeann Brown RN Position: [facility] RN Member Role: Primary Care Nurse Name: Pepe Brown RN Position: [facility] RN Member Role: Primary Care Nurse Name: Kassy Jo RN Position: [facility] SN RN Member Role: Primary Care Nurse Name: Patricia Chase RN Position: [facility] RN Member Role: Primary Care Nurse Name: Felisha Lilly Position: [facility] [place] Member Role: Primary Care Nurse Name: Martha Lawson RN Position: [facility] RN Member Role: Primary Care Nurse Name: Geraldine Whyte RN Position: [facility] RN Member Role: Primary Care Nurse Name: Kyle Matthews RN Position: [facility] RN Member Role: Primary Care Nurse Name: Rasta Silverio RN Position: [facility] RN Member Role: Primary Care Nurse Name: Judi Phillips RN, I Position: [facility] RN Member Role: Primary Care Nurse Care Team Related Persons Name: DOMINGA DANNA Address: [place] [address]
--- OUTSIDE RECORDS SUMMARY | 2023-08-23 07:14 | XMS_ITS | Continuity of Care Document ---
Author Name Unknown Organization [facility] ter Address [address] [place] [address]- Care Team Providers Care Manager Strategic Partnerships Name Role Phone Rasta Guerrero MD Primary Care Physician [place] [facility] [id number] Date(s): 05/22/23 - 05/22/[address] [address]- Encounter Diagnosis Headache(Final) - 05/22/23 HTN (hypertension)(Final) - 05/22/23 ESRD (end stage renal disease)(Final) - 05/22/23 Discharge Disposition: A-D/C Home Attending Physician: Miko Escoto MD Admitting Physician: Miko Escoto MD Referring Physician: Not on Staff, Referring MD Allergies, Adverse Reactions, Alerts Substance Reaction Severity Status lisinopril Active Immunizations Given and Recorded Vaccine Date Status Refusal Reason [id number] 12y+ bivalent booster vax 08/01/22 Recorded SARS-CoV-2 (COVID-19) mRNA-1273 vaccine 07/04/22 R ecorded SARS-CoV-2 (COVID-19) mRNA-1273 vaccine 11/13/20 R ecorded SARS-CoV-2 (COVID-19) mRNA-1273 vaccine 10/15/20 R ecorded SARS-CoV-2 mRNA (nrbangm-cnyy-wkakb) vax 02/04/22 Recorded SARS-CoV-2 (COVID-19) mRNA BNT-162b2 [...] req; Start Date: 05/27/22 Status: Ordered ergocalciferol 09878 iu oral capsule 47108 Unknown, Oral, 0 Refill(s), Take 50,000 Units [...] 12/08/22 Stop Date: 01/07/23 Status: Ordered hydrALAZINE 25 mg oral tablet 25 mg, Tablet, By Mouth, Once, Routine, 05/22/23 11:00:00 EDT, Stop date 05/22/23 11:00:00 EDT Start Date: 05/22/23 Stop Date: 05/22/23 Status: Completed hydrALAZINE 50 mg oral tablet 90 tablet, [...] Exam Date Time Procedure Performing Provider Status 05/22/23 10:[address] Head/Brain W/O Contrast Eva Chambers lleen; Auth (Verified) Notes: (CT Head/Brain W/O Contrast) Reason For Exam: Trauma RESULT: CT Head/Brain W/O Contrast CT Head/Brain W/O Contrast INDICATION: Hx of Present Illness: Pt coming dialysis with c o headache and hypertension after completing dialysis. Pt was found to have normal BP by ems, sts headache has resolved; Reason: Trauma; Clinical Question(s): Hematoma; Order Comment: TECHNIQUE: Noncontrast head CT using axial technique and reconstructed in axial and coronal planes.Iterative reconstruction techniques are used to optimize dose and image quality. CTDIvol Head: 45.80 mGy, DLP Head: 773 mGy*cm. COMPARISON: None. FINDINGS: Distribution Spec view findings, lines and tubes: None. BRAIN AND EXTRA-AXIAL SPACES: No parenchymal hemorrhage, midline shift, or mass effect. Cooper-white matter differentiation is wellpreserved. No acute infarct. Negative insular ribbon sign. Atherosclerotic vascular calcification of the carotid arteries but negative hyperdense vessel sign. Mild prominence of the ventricles and sulci consistent with parenchymal volume loss. Mild low-density white matter changes. No subarachnoid hemorrhage. No subdural or epidural collection. CALVARIUM, SKULL BASE, AND SOFT TISSUES: No fractures or suspicious bony lesions. The paranasal sinuses and mastoid air cells are clear. Visualized orbits and globes are intact. Large amount of cerumen in bilateral external ear canals. IMPRESSION: No acute intracranial pathology. WSN: [id number] Ordering Physician: Marie Rivera Dictated By: Becca Wayne MD Dictated Date/Time: 05/22/23 10:34 a Reviewed By: Becca Wayne MD Signed By: Becca Wayne MD Signed Date/Time: 05/22/23 10:34 am Transcribed By: WILFREDO Transcribed Date/Time: 05/22/23 10:32 am Vital Signs Most recent to oldest [Reference Range]: 1 2 3 Oxygen Saturation [94-100 %] 99 % (05/22/23 2:19 PM) 100 % (05/22/23 10:52 AM) 96 % (05/22/23 10:01 AM) Pulse Rate [55-90 bpm] 72 bpm (05/22/23 2:19 PM) 68 bpm (05/22/23 10:52 AM) 86 bpm (05/22/23 10:01 AM) Blood Pressure [90-138/55-84 mm Hg] 174/98mm Hg *H* (05/22/23 2:19 PM) 217/86mm Hg *H* (05/22/23 11:46 AM) 251/87mm Hg *H* (05/22/23 10:52 AM) Respiratory Rate [16-30 br/min] 16 br/min (05/22/23 2:19 PM) 16 br/min (05/22/23 10:52 AM) 19 br/min (05/22/23 10:01 AM) Temperature [96.8-100.4 DegF] 98.0 DegF (05/22/23 2:19 PM) 98.1 DegF (05/22/23 10:01 AM) Liters per Minute 3 L/min (05/22/23 2:19 PM) 3 L/min (05/22/23 10:52 AM) 3 L/min (05/22/23 10:01 AM) Mode of Delivery (Oxygen) Nasal cannula (05/22/23 2:19 PM) Nasal cannula (05/22/23 10:52 AM) Nasal cannula (05/22/23 10:01 AM) Temperature Route Oral (05/22/23 2:19 PM) Oral (05/22/23 10:01 AM) Social History Social History Type Response Smoking Status Former smoker, quit more than 30 days ago; Other: Quit 20 years ago, smoked for 30 years 1.5 ppd; entered on: 06/30/22 Sex Note * Marie Rivera DO: PERFORM Event Display: Patient Education Leaflets Authored Date: [id number] Chronic Kidney Disease (CKD) ?? [id number] Chronic Kidney Disease (CKD) The role of [...] and past viral or bacterial infections. Certain omgg-sdz-rgqxjza pain medicines can cause renal failure when [...] more information, visit the following links: o www.The Echo Systemfree.gov/sites/default/files/pdf/ucfyuejr-rte-cad-accessible.pdf o www.smokefree.gov o www.cancer.org/healthy/stayawayfromt obacco/guidetoquittingsmoking ??? Most [...] medicines or supplements. Don't use the following tgjt-vvl-hjppjmw medicines. Or consultyour healthcare provider before using [...] Visit these websites to learn more: ??? [place] [employer] Kidney Patients at www.aakp.org ??? National Kidney Foundation at www.kidney.org ??? [place] Kid[employer] Fund at www.kidneyfund.org ??? National Kidney [...] worse ?? Last Reviewed Date: 2022 ?? 3219-5912 [employer]. All rights reserved. This information is not intended as a substitute for professional medical care. Always follow your healthcare professional's instructions. ?? Patient Care team information Care Team Personnel Name: Capri Bush RN Position: [facility] RN Member Role: Primary Care Nurse Name: Linda La RN Position: [facility] Outreach Member Role: Primary Care Nurse Name: Arlen Hale LPN Position: [facility] RN Member Role: Primary Care Nurse Name: Chloe Dhaliwal RN Position: [facility] RN Member Role: Primary Care Nurse Name: Laureano Crawley RN Position: [facility] RN Member Role: Primary Care Nurse Name: Mary Ellen Mcdonald NP Position: [facility] Associate Professional Member Role: Lifetime Consulting Provider Address: Address: [address] [place], [place] [address]E [facility] [place] [place] [address]- Name: Barrie Lopez MD Position: [facility] Renal Member Role: Lifetime Consulting Physician Address: Address: [address] [place], [place] [address] [facility] [place], [place] [address] Name: Dread Trent RN Position: [facility] RN Member Role: Primary Care Nurse Name: Wojciech Arriaga RN Position: [facility] RN Member Role: Primary Care Nurse Name: Jodi Parr RN Position: [facility] RN Member Role: Primary Care Nurse Name: Nasreen Gamble RN Position: [facility] OB RN Member Role: Primary Care Nurse Name: Marvin Dooley DO Position: [facility] Renal MD Member Role: Lifetime Consulting Physician Address: Address: [address] [facility] [address] [facility] [place] [address]- [place] Name: Fermín Dominguez III, RN Position: [facility] RN Member Role: Primary Care Nurse Name: Rut Tucker Position: [facility] RN Member Role: Primary Care Nurse Name: Ham Floyd RN Position: [facility] RN Member Role: Primary Care Nurse Name: Gutierrez Anderson MD Position: [facility] Renal MD Member Role: Lifetime Consulting Physician Address: Address: [address] [facility] [place] [address]- [place] Name: Rasta Guerrero MD Position: [facility] Outreach Member Role: PCP Address: Address: [address] [facility] [place] [address]- [place] Name: Leeann Brown RN Position: [facility] RN Member Role: Primary Care Nurse Name: Pepe Brown RN Position: [facility] RN Member Role: Primary Care Nurse Name: Kassy Jo RN Position: [facility] SN RN Member Role: Primary Care Nurse Name: Patricia Chase RN Position: [facility] RN Member Role: Primary Care Nurse Name: Felisha Lilly Position: [facility] [place] Member Role: Primary Care Nurse Name: Martha Lawson RN Position: [facility] RN Member Role: Primary Care Nurse Name: Geraldine Whyte RN Position: [facility] RN Member Role: Primary Care Nurse Name: Kyle Matthews RN Position: [facility] RN Member Role: Primary Care Nurse Name: Rasta Silverio RN Position: [facility] RN Member Role: Primary Care Nurse Name: Judi Phillips RN, I Position: [facility] RN Member Role: Primary Care Nurse Name: Marie Rivera DO Position: [facility] Resident Member Role: ED Resident Address: Address: [address] [place] [address]- [place] Name: Miko Escoto MD Position: [facility] ED Medicine MD Member Role: Admitting Physician Address: Address: [address] [place] [address]- [place] Name: Luz Castellanos RN Position: [facility] ED RN W/OE and Tasks Member Role: Patient Care Provider Name: Megha Palma Position: [facility] ED TA [facility] Care Team Related Persons Name: DANNA ORR Address: [place] [address]
--- OUTSIDE RECORDS SUMMARY | 2023-08-23 07:14 | XMS_ITS | Continuity of Care Document ---
Author Name Unknown Organization [facility] Address [address] [place] [id number]- Care Team Providers Care Trust Manager Assistant Name Role Phone Rasta Guerrero MD Primary Care Physician [place] [facility] [place] 05[place]13/23 - 05/14/[address] [id number]- Encounter Diagnosis ESRD on dialysis(Final) - 05/13/23 COPD (chronic obstructive pulmonary disease)(Final) - 05/13/23 Discharge Disposition: A-Transfer SNF Attending Physician: Rosamaria Strauss MD Admitting Physician: Salazar ROJAS, Christos Referring Physician: Not on Staff, Referring MD Allergies, Adverse Reactions, Alerts Substance Reaction Severity Status lisinopril Active Immunizations Given and Recorded Vaccine Date Status Refusal Reason [id number] 12y+ bivalent booster vax 08/01/22 Recorded SARS-CoV-2 (COVID-19) mRNA-1273 vaccine 07/04/22 R ecorded SARS-CoV-2 (COVID-19) mRNA-1273 vaccine 11/13/20 R ecorded SARS-CoV-2 (COVID-19) mRNA-1273 vaccine 10/15/20 R ecorded SARS-CoV-2 mRNA ([id number]) vax 02/04/22 Recorded SARS-CoV-2 (COVID-19) mRNA BNT-162b2 [...] oral tablet 25 mg, Tablet, By Mouth, Hold for: sBP less than 110, 05/14/23 9:00:00 EDT Start Date: 05/14/23 Stop Date: 05/14/23 Status: Completed carvedilol 25 mg oral tablet 25 mg, [...] req; Start Date: 05/27/22 Status: Ordered ergocalciferol 33800 iu oral capsule 47163 Unknown, Oral, 0 Refill(s), Take 50,000 Units [...] release 60 mg, ER Tablet, By Mouth, Hold for: sBP less than 110, 05/14/23 9:00:00 EDT Start Date: 05/14/23 Stop Date: 05/14/23 Status: Completed NIFEdipine 60 mg oral tablet, [...] Exam Date Time Procedure Performing Provider Status 05/13/23 7:18 AM Chest 2 Views Frontal and Lat Cecilia Valdez; Auth (Verified) Notes: (Chest 2 Views Frontal and Lat) Reason For Exam: Cough RESULT: Chest 2 Views Frontal and Lat Chest 2 Views Frontal and Lat Hx of Present Illness: Low H H; Reason: Cough; Clinical Question(s): CHF COMPARISON: 02/14/2023. FINDINGS: LINES AND TUBES: None. LUNGS AND PLEURA: Low lung volumes with pulmonary edema with mid to lower lung opacities and atelectasis also present. Small bilateral pleural effusions. No pneumothorax HEART, MEDIASTINUM AND JOSELYN: Enlarged heart size Aortic atherosclerosis, postsurgical changes in the mediastinum BONES AND SOFT TISSUES: No acute abnormality. Prior median sternotomy. There is a stent projecting at the left axillary area. This is vascular. IMPRESSION: Findings suggestive of pulmonary edema, likely congestive heart failure. There is also low lung volumes and lower lung atelectasis. WSN: [id number] Ordering Physician: Garett Tse Dictated By: Giselle Freed MD Dictated Date/Time: 05/13/23 9:23 am Reviewed By: Giselle Freed MD Signed By: Giselle Freed MD Signed Date/Time: 05/13/23 9:23 am Transcribed By: WILFREDO Transcribed Date/Time: 05/13/23 9:22 am Vital Signs Most recent to oldest [Reference Range]: 1 2 3 Weight 60 kg (05/13/23 7:00 PM) Oxygen Saturation [94-100 %] 100 % (05/14/23 2:59 PM) 100 % (05/14/23 11:47 AM) 100 % (05/14/23 8:42 AM) Pulse Rate [55-90 bpm] 69 bpm (05/14/23 2:59 PM) 70 bpm (05/14/23 11:47 AM) 68 bpm (05/14/23 8:44 AM) Blood Pressure [90-138/55-84 mm Hg] 145/57mm Hg *H* (05/14/23 2:59 PM) 160/65mm Hg *H* (05/14/23 11:47 AM) Systolic Blood Pressure [90-138 mm Hg] 206 mm Hg *H* (05/14/23 8:42 AM) Diastolic Blood Pressure [55-84 mm Hg] 73 mm Hg (05/14/23 8:43 AM) Respiratory Rate [16-30 br/min] 16 br/min (05/14/23 2:59 PM) 16 br/min (05/14/23 11:47 AM) 18 br/min (05/14/23 8:42 AM) Temperature [96.8-100.4 DegF] 98.3 DegF (05/14/23 2:59 PM) 98.3 DegF (05/14/23 11:47 AM) 98.2 DegF (05/14/23 8:42 AM) Liters per Minute 3 L/min (05/14/23 2:59 PM) 3 L/min (05/14/23 11:47 AM) 4 L/min (05/14/23 4:06 AM) Mode of Delivery (Oxygen) Nasal cannula (05/14/23 2:59 PM) Nasal cannula (05/14/23 11:47 AM) Room air (05/14/23 8:42 AM) Blood pressure sites Arm, left (05/14/23 2:59 PM) Arm, left (05/14/23 11:47 AM) Arm, left (05/14/23 8:42 AM) Temperature Route Oral (05/14/23 2:59 PM) Oral (05/14/23 11:47 AM) Oral (05/14/23 8:42 AM) Dry Weight 60 kg (05/13/23 7:00 PM) Dry Weight Obtained Via Bed scale (05/13/23 7:00 PM) Social History Social History Type Response Smoking Status Former smoker, quit more than 30 days ago; Other: Quit 20 years ago, smoked for 30 years 1.5 ppd; entered on: 06/30/22 Sex Admission evaluation note * Rica ROJAS, Rosamaria: MODIFY, MODIFY, PERFORM, MODIFY, MODIFY Event Display: Admission Note Authored Date: [id number] Patient: ??SARWAT SMALL ? Age:??67 Years?Sex:??Male?:??1955?? Chief Complaint/Reason for Consultation pt BIBA from dialysis d/t weakness, sluggishness, low H&H at dialysis. Told to come to ED for transfusion. Was suppose to get one tomorrow. Also reports chest pressure 6/10. History of Present Illness Leoncio Small is a 67-year-old man with COPD chronically on 3 L of oxygen, coronary artery disease status post CABG, ESRD on hemodialysis Thursday/Thursday/Thursday via right upper extremity fistula, prior heavy smoker,bilateral AKA from peripheral vascular disease and wheelchair dependent, GAVE syndrome with prior GIB??who presented with lethargy and fatigue from dialysis. While at dialysis his labs were checked and he was found to be severely anemic. His baseline hemoglobin is around 7.5-8.5, however in dialysis it was around 6, on recheck in the ED 5.7.?? Patient does note few days of generalized fatigue, lethargy.?? Also reports sudden onset of retrosternal chest pain that is worse with exertion, started yesterday.?? He also notes he is more short of breath, oxygen requirements are unchanged.?? Patient also reports cough, productive,?? Intermittent diarrhea.??No fevers or chills.?? He is unsure if his stool is bloody or black. Of note, patient had an EGD/colonoscopy done in 10/2022 that showed normal esophagus, normal duodenum and the erosions in the whole stomach.Patient also has a prior documented history of gastric antral vascular ectasia (GAVE), with previous gastric bleeding. ?? In the ED, blood pressure was found to be 176/64, patient is saturating at 100% on 2 to 3 L of nasal cannula .?? His pulse is normal and he is afebrile.?? Labs are notable for as mentioned above for hemoglobin of 5.7, hematocrit of 18.4, MCV 104, platelet is 67, WBC 2.8. CXR showing vascular congestion. Electrolytes are stable.?? proBNP is 40,000, HS troponin is 107, similar to what it was back in January.?? Nephrology was contacted by the ED, patient will be going to dialysis and getting a blood transfusion. ?? Review of Systems All systems reviewed and negative except above. Objective Vital Signs?? Temperature: 97.9 DegF (05/13/23 14:08:00) Temperature Route: Oral (05/13/23 14:08:00) Pulse Rate: 73 bpm (05/13/23 14:08:00) Respiratory Rate: 18 br/min (05/13/23 14:08:00) Vented: No (05/13/23 06:05:00) Systolic Blood Pressure:??152 mm Hg??High (05/13/23 14:08:00) Diastolic Blood Pressure:??106 mm Hg??High (05/13/23 14:08:00) Blood pressure sites: Arm, left (05/13/23 14:08:00) Mean Arterial Pressure: 121 mm Hg (05/13/23 14:08:00) Pulse Pressure: 46 mm Hg (05/13/23 14:08:00) Oxygen Saturation: 100 % (05/13/23 14:08:00) Liters per Minute: 2 L/min (05/13/23 14:08:00) Mode of Delivery (Oxygen): Nasal cannula (05/13/23 14:08:00) Early Warning Score: 8 (05/13/23 14:09:15) ? Intake/Output? No Data Available ? Physical Exam General:??No acute distress, AAOx3. HEENT:??Atruamatic/normocephalic Cardio:??Regular rate Respiratory:??No wheezing, crackles at bases Abdomen:??Soft, slight epigastric tenderness Extremities:??b/l AKA Skin:??No rashes or hematomas appreciated. Neuro:??No focal deficits grossly. Assessment/Plan Leoncio Small is a 67-year-old man with COPD chronically on 3 L of oxygen, coronary artery disease status post CABG, ESRD on hemodialysis Thursday/Thursday/Thursday via right upper extremity fistula, prior heavy smoker,bilateral AKA from peripheral vascular disease and wheelchair dependent, GAVE syndrome with prior GIB??who presented with lethargy and fatigue from dialysis. ?? Acute on Chronic Anemia Hx of GAVE Prior Hx GIB baseline hb around 8 Transfuse 1 unit pRBC to start, keep Hb at 7 or above Procrit per Renal Continue home Protonix and Carafate if develops melena/ acute GIB or hb does not respond appropriately, consult GI Last EGD/colonoscopy done in 10/2022 that showed normal esophagus, normal duodenum and the erosions in the whole stomach. Currently HD stable without obvious bleeding ?? ESRD on HD Hypertension Continue home carvedilol 25 mg??twice daily,??clonidine??0.2 mg??twice a day??on Thursday, clonidine 0.2 mg??3 times a day on??Thursday , continue Imdur 60 mg, continue nifedipine 60 mg all??with holding parameters Hold as needed??hydralazine 25 mg 3 times a day Hemodialysis??per??renal ?? Thrombocytopenia Leukopenia Recently evaluated by heme onc as outpatient Continue outpatient f/u as planned ?? CAD Hx of CABG Pt currently denies chest pain. Troponin is elevated but unchanged from prior. EKG NSR, no acute ischemic changes. Continue Lipitor, other meds as above ?? COPD on home O2 chronic hypoxic respiratory failure Currently stable No longer on inhalers, unclear?? why Continue O2 supp and as needed duonebs ?? DNR discussed at length with patient who at first says he would like to be revived . Mentioned to him that even with resuscitation measures it is not guaranteed that he would be revived, in fact chancesare small. Described chest compressions, possible rib fx etc Patient mentions he would definitely not want that and opted for DNR at this time. ?? Renal diet dvt ppx: chemical is contraindicated in the setting of a possible bleed ? Histories Allergies Allergies ?(Active and Proposed Allergies Only) lisinopril? (Severity: Unknown severity, Onset: Unknown) ? Past Medical History/Problem List Active Problems??(17) Anemia Anemia of chronic disease Chronic pain syndrome COPD (chronic obstructive pulmonary disease) Coronary artery disease Diabetes mellitus ESRD on dialysis Gastritis Hepatitis C, chronic Hyperlipidemia Hypertension Hypothyroidism Hypothyroidism Peripheral vascular disease Pulmonary edema Respiratory failure, chronic TACO (transfusion associated circulatory overload) ? Social History Alcohol Details:??Use: Never. Substance Abuse Details:??Use: Never. Tobacco Details:??Use: Former smoker, quit more than 30 days ago. ??Other: Quit 20 years ago, smoked for 30years 1.5 ppd. ? Family History Mother: Cancer Father: Diabetes mellitus; Heart attack; Heart disease; Stroke ? Medications Home Medications Atorvastatin (atorvastatin 80 mg oral tablet)?1?tab(s)?80?Milligram?By Mouth?Daily [...] sulfate 325 mg oral enteric coated tablet)?325?Milligram?By Mouth?Daily Gabapentin (gabapentin 100 mg oral capsule)?200?Milligram?2?capsule?By Mouth?Daily [...] BLOOD BANK Blood Type O Positive ()?? 05/13/2023 06:27 Antibody Screen Positive ()?? 05/13/2023 06:27 RBC Unit ID [id number] ()?? 05/13/2023 11:30 RBC Available IS ()?? 05/13/2023 11:30 Antibody Identification 1 Anti-C ()?? 05/13/2023 08:47 Antibody Identification 2 Anti e ()?? 05/13/2023 08:47 ?? BLOOD COUNT & DIFF WBC 2.8 k/mm3 (Low)?? 05/13/2023 06:35 RBC 1.77 m/mm3 (Low)?? 05/13/2023 06:35 Hgb 5.7 Gm/dL (Critical)?? 05/13/2023 06:35 Hct 18.4 % (Critical)?? 05/13/2023 06:35 MCV 104.0 femtoliters (High)?? 05/13/2023 06:35 MCH 32.2 pg ()?? 05/13/2023 06:35 MCHC 31.0 g/dL (Low)?? 05/13/2023 06:35 Platelet Count 67 k/mm3 (Low)?? 05/13/2023 06:35 RDW-SD 71.4 femtoliters (High)?? 05/13/2023 06:35 MPV 12.7 femtoliters (High)?? 05/13/2023 06:35 Nucleated RBC (Automated) 0.0 #/100 WBC'S ()?? 05/13/2023 06:35 Abs. NRBC 0.0 k/mm3 ()?? 05/13/2023 06:35 Abs. Neut 2.0 k/mm3 ()?? 05/13/2023 06:35 Abs. Lymph 0.5 k/mm3 (Low)?? 05/13/2023 06:35 Abs. [place] 0.2 k/mm3 (Low)?? 05/13/2023 06:35 Abs. Eo 0.1 k/mm3 ()?? 05/13/2023 06:35 Abs. Baso 0.0 k/mm3 ()?? 05/13/2023 06:35 Neut % 72.5 % ()?? 05/13/2023 06:35 Lymph % 16.4 % ()?? 05/13/2023 06:35 [place] % 7.1 % ()?? 05/13/2023 06:35 Eos % 3.2 % ()?? 05/13/2023 06:35 Baso % 0.4 % ()?? 05/13/2023 06:35 Imm Gran 0.4 % ()?? 05/13/2023 06:35 Abs. Imm Gran 0.0 k/mm3 ()?? 05/13/2023 06:35 ?? CARDIAC Nt-Probnp 04378 pg/mL (High)?? 05/13/2023 06:35 High Sensitivity Troponin (HSTnT) 107 ng/L (Critical)?? 05/13/2023 06:35 ?? CHEM GENERAL Sodium 139 mmol/L ()?? 05/13/2023 06:35 Potassium 5.1 mmol/L ()?? 05/13/2023 06:35 Chloride 99 mmol/L ()?? 05/13/2023 06:35 Bicarbonate Level 26 mmol/L ()?? 05/13/2023 06:35 Anion Gap 14 ()?? 05/13/2023 06:35 Glucose Level 89 mg/dL ()?? 05/13/2023 06:35 BUN 35 mg/dL (High)?? 05/13/2023 06:35 Creatinine-Blood 6.9 mg/dL (High)?? 05/13/2023 06:35 Estimated GFR Creatinine 8 ML/MIN/1.73 M2 ()?? 05/13/2023 06:35 Calcium 8.4 mg/dL (Low)?? 05/13/2023 06:35 ?? HEME OTHER Hold Blue Top SPECIMEN DISCARDED AFTER 4 HOURS. ()?? 05/13/2023 08:53 ?? VIROLOGY COVID-19 by RT-PCR NEGATIVE ()?? 05/13/2023 07:05 ? Microbiology ?? COVID-19 (Novel Coronavirus), Rapid PCR?? Completed?? Source: Nasal Body Site: Nose Collected Dt/Tm: 05/13/2023 06:28 Last Updated Dt/Tm: 05/13/2023 08:32 ? Imaging(s) ?Chest 2 Views Frontal and Lat ?? 05/13/2023 07:18??by Giselle Freed MD ? IMPRESSION: Findings suggestive of pulmonary edema, likely congestive heart failure. There is also low lung volumes and lower lung atelectasis. ?ECG 12-Lead ?? 05/13/2023 06:52??by Harsha Paul DO ?[id number] Ventricular Rate: 60 BPM Atrial Rate: 60 BPM P-R Interval: 192 ms QRS Duration: 76 ms Q-T Interval: 438 ms QTC Calculation(Bazett): 438 ms P [place]: 30 degrees R [place]: 0 degrees T [place]: -49 degrees Normal sinus rhythm Cannot rule out Anterior infarct (cited on or before 05-JAN-2023) Abnormal ECG When compared with ECG of 14-FEB-2023 08:36, T wave inversion less evident in Lateral leads Confirmed by HARSHA PAUL MD () on 05/13/2023 9:17:59 AM ? Consults(s) ?Consultation Note ?? 05/13/2023 14:10??by Tamara HOPE, Mary Ellen ? EKG study * Event Display: ECG 12-Lead Authored Date: Please click on pdf link to open report * Event Display: ECG 12-Lead Authored Date: Ventricular Rate: 60 BPM Atrial Rate: 60 BPM P-R Interval: 192 ms QRS Duration: 76 ms Q-T Interval: 438 ms QTC Calculation(Bazett): 438 ms P [place]: 30 degrees R [place]: 0 degrees T [place]: -49 degrees Normal sinus rhythm Cannot rule out Anterior infarct (cited on or before 05-JAN-2023) Abnormal ECG When compared with ECG of 14-FEB-2023 08:36, T wave inversion less evident in Lateral leads Confirmed by HARSHA PAUL MD () on 05/13/2023 9:17:59 AM [place]: HARSHA PAUL MD Cardiology * Event Display: Cardiac Rhythm Strips Authored Date: Hospital Progress note * Ronna JAY, Vita M: VERIFY, PERFORM, SIGN Event Display: Progress Note Hospital Authored Date: Patient: SARWAT SMALL Age: 67 years Sex: Male : 1955 Associated Diagnoses: None Author: Ronna JAY, Vita [place] Findings Problem Related to Alteration in Tissue Perfusion : Alteration in Tissue Perfusion 05/14/2023 7:00 EDT Alteration Tissue Perfusion related to Anemia Goals & Outcomes: Tissue perfusion Pt will maintain optimal perfusion to vital organs, Pt will experience improved tissue perfusion, Pt will be hemodynamically stable Interventions: Tissue Perfusion Assess/Monitor cardiac dysrhythmias, Assess/Monitor mental status, Assess/Monitor vital signs per unit standard & prn, Monitor Intake & Output Goals/Interventions, Tissue Perfusion Yes Tissue Perfusion, Problem Start 05/14/2023 7:56 Reviewed Plan with, Tissue Perfusion Patient . Evaluation Patient alert and oriented X3-4. SR on the monitor. Lungs with crackles to bases. O2 sat 3 liters nasal cannula. Abdomen soft, non-tender, BS+. Patient in the bathroom having a BM at this time. Patient assisted from bed to wheelchair then to toilet. Patient anuric. Tolerating diet without difficulty. Denies pain. Patient to be discharged via ambulance at 1400. Will continue to monitor. . * Manish JAY, Hayde Avitia: PERFORM, SIGN, VERIFY Event Display: Progress Note Hospital Authored Date: Patient: SARWAT SMALL Age: 67 years Sex: Male : 1955 Associated Diagnoses: None Author: Manish JAY, Hayde Avitia Findings Problem Related to Alteration in Tissue Perfusion : Alteration in Tissue Perfusion 05/14/2023 7:00 EDT Alteration Tissue Perfusion related to Anemia Goals & Outcomes: Tissue perfusion Pt will maintain optimal perfusion to vital organs, Pt will experience improved tissue perfusion, Pt will be hemodynamically stable Interventions: Tissue Perfusion Assess/Monitor cardiac dysrhythmias, Assess/Monitor mental status, Assess/Monitor vital signs per unit standard & prn, Monitor Intake & Output Goals/Interventions, Tissue Perfusion Yes Tissue Perfusion, Problem Start 05/14/2023 7:56 Reviewed Plan with, Tissue Perfusion Patient Patient Progression, Tissue Perfusion Plan Initiation . Evaluation Pt arrived via stretcher from dialysis. Pt confused oriented to person. LS with crackles throughout, pt C/O SOB on 4L 02 via N/C, 02 sat 100%, non productive cough. MD notified and resp treatment given with good effect. ABD SNT with +BSX4, no BM this shift. Pt does not void. Fistula to KERRY +bruit, +thrill. Pt with bilateral AKA. Skin intact Bed alarm on for safety, call carbajal within reach. . * Indu Sargent: PERFORM, SIGN, VERIFY Event Display: Progress Note Hospital Authored Date: Patient: SARWAT SMALL Age: 67 years Sex: Male : 1955 Associated Diagnoses: None Author: Indu Sargent Findings Narrative/Incidental Behavioral Resource Clinician Note - Chart reviewed due to triggering of systems-generated psych consult per [place] Suicide Severity Scale on plush brusher assessment of suicidality. Patient stated, no when asked if ???wished to be ?? in the past month or had ???suicidal thoughts?? in the past month. Symptoms DO NOT warrant formal psych consult at this time. Please continue to assess fordepression and suicidal ideation, consider placing formal psychiatric consult if warranted. Education on symptoms of depression and when to seek help placed in pt's dc plan. . Consult note * John ROJAS, Barrie: MODIFY Mary Ellen Mcdonald NP: PERFORM Event Display: Consultation Note Authored Date: [id number] Patient: ??SARWAT SMALL ? Age:??67 Years?Sex:??Male?:??1955?? Attending:??Rosamaria Strauss MD Admission Date: 05/13/2023 ?? Chief Complaint and Reason for Consultation Assistance with the management of ESRD and HD needs. ?? History of Present Illness Mr. Small is a 67-year-old male with a history of ESRD secondary to diabetic nephropathy who dialyzes on a??M/W/F schedule at [facility] via a right upper extremity AV Fistula. ??He presented to [facility] on 05/13 in the setting of feeling fatigued, lightheaded, and tired. ??He was found to be anemic at outpatient dialysis and sent in for transfusion prior to dialysis due to symptomaticanemia.?? In the ED, pt was found to have HGB of 5.7.? Past Medical History Active Problems??(17) Anemia Anemia of chronic disease Chronic pain syndrome COPD (chronic obstructive pulmonary disease) Coronary artery disease Diabetes mellitus ESRD on dialysis Gastritis Hepatitis C, chronic Hyperlipidemia Hypertension Hypothyroidism Hypothyroidism Peripheral vascular disease Pulmonary edema Respiratory failure, chronic TACO (transfusion associated circulatory overload) ? Medications: Home Medications (21) Active acetaminophen 650 mg rectal suppository??650 mg = 1 supp, PRN, Rectally, Every 6 hours atorvastatin 80 mg oral tablet??80 mg = 1 tablet, By Mouth, Daily at bedtime brimonidine 0.2% ophthalmic solution??2 drops, Eyes, Both, 2 times a day carvedilol 25 mg oral tablet??25 mg = 1 tablet, By Mouth, 2 times a day cholecalciferol 50,000 intl units oral capsule??1,250 mcg = 1 capsule, By Mouth, Every 30 days cloNIDine 0.2 mg oral tablet??0.2 mg = 1 tablet, By Mouth, 2 times a day cloNIDine 0.2 mg oral tablet??0.2 mg = 1 tablet, By Mouth, 3 times a day docusate sodium 100 mg oral capsule??100 mg = 1 capsule, By Mouth, 2 times a day Epoetin Jose??20,000 units = 1 mL, IV Push Slowly, Every Thursday, Thursday and Thursday ferrous sulfate 325 mg oral enteric coated tablet??325 mg, By Mouth, 3 times a day gabapentin 100 mg oral capsule??200 mg = 2 capsule, By Mouth, Daily at bedtime hydrALAZINE 25 mg oral tablet??25 mg = 1 tablet, PRN, By Mouth, 3 times a day Imdur ER??60 mg, By Mouth, Daily levothyroxine 150 mcg (0.15 mg) oral tablet??150 mcg = 1 tablet, By Mouth, Daily lidocaine 4% topical cream??, Topically, Every Thursday, Thursday and Thursday Narcan 4 mg/0.1 mL nasal spray??4 mg, PRN, Naris, Left, Once NIFEdipine 60 mg oral tablet, extended release??60 mg = 1 tablet, By Mouth, 2 times a day pantoprazole 40 mg oral delayed release tablet??40 mg = 1 tablet, By Mouth, 2 times a day Senna 8.6 mg oral tablet??8.6 mg = 1 tablet, By Mouth, 2 times a day sucralfate 1 gm oral tablet??1 Gm = 1 tablet, By Mouth, 2 times a day Vitamin B Complex oral tablet, extended release??1 tablet, By Mouth, Daily ?? FH: Reviewed and non-contributory ?? Social: Reviewed ?Review of Systems Const: no fever, no chills HEENT: no dizziness, no headaches, no vision changes Resp: no SOB, no wheezing, no cough CV: no chest pain, no palpitations, no edema, no orthopnea, no syncope GI: no abdominal pain, no n/v, no diarrhea, no constipation, no melena, no hematochezia : no dysuria, no hematuria MSK: no myalgias, no DROM, no back pain Neuro: no paresthesias, no focal weakness?? Skin: no rashes Heme: No easy bruising, no bleeding or clotting tendency ?? 07/07 systems were reviewed and were negative for any positive or negative complaint, except as mentioned above. ?? Objective Vital Signs (last 24 hrs) ?Last Charted Heart Rate Peripheral?73 bpm ??(MAY 13 14:08) Resp Rate?18 br/min ??(MAY 13 14:08) SBP?H??152mm Hg ??(MAY 13 14:08) DBP?H??106mm Hg ??(MAY 13 14:08) SpO2?100 % ??(MAY 13 14:08) No qualifying data available. ?? Intake/Output? No Data Available ?? Physical Exam General: ??NAD, AAOx4 HEENT: NCAT, MMM Neck: no JVD Cardio: normal S1 snd S2, no MRG, RRR Resp: CTAB Abdo: NT, ND, Extremities: No peripheral edema, Skin: No rashes or other abnormalities Neuro: Grossly intact ?? BLOOD BANK Blood Type O Positive ()?? 05/13/2023 06:27 Antibody Screen Positive ()?? 05/13/2023 06:27 RBC Unit ID [id number] ()?? 05/13/2023 11:30 RBC Available XM ()?? 05/13/2023 11:30 Antibody Identification 1 Anti-C ()?? 05/13/2023 08:47 Antibody Identification 2 Anti e ()?? 05/13/2023 08:47 ?? BLOOD COUNT & DIFF WBC 2.8 k/mm3 (Low)?? 05/13/2023 06:35 RBC 1.77 m/mm3 (Low)?? 05/13/2023 06:35 Hgb 5.7 Gm/dL (Critical)?? 05/13/2023 06:35 Hct 18.4 % (Critical)?? 05/13/2023 06:35 MCV 104.0 femtoliters (High)?? 05/13/2023 06:35 MCH 32.2 pg ()?? 05/13/2023 06:35 MCHC 31.0 g/dL (Low)?? 05/13/2023 06:35 Platelet Count 67 k/mm3 (Low)?? 05/13/2023 06:35 RDW-SD 71.4 femtoliters (High)?? 05/13/2023 06:35 MPV 12.7 femtoliters (High)?? 05/13/2023 06:35 Nucleated RBC (Automated) 0.0 #/100 WBC'S ()?? 05/13/2023 06:35 Abs. NRBC 0.0 k/mm3 ()?? 05/13/2023 06:35 Abs. Neut 2.0 k/mm3 ()?? 05/13/2023 06:35 Abs. Lymph 0.5 k/mm3 (Low)?? 05/13/2023 06:35 Abs. [place] 0.2 k/mm3 (Low)?? 05/13/2023 06:35 Abs. Eo 0.1 k/mm3 ()?? 05/13/2023 06:35 Abs. Baso 0.0 k/mm3 ()?? 05/13/2023 06:35 Neut % 72.5 % ()?? 05/13/2023 06:35 Lymph % 16.4 % ()?? 05/13/2023 06:35 [place] % 7.1 % ()?? 05/13/2023 06:35 Eos % 3.2 % ()?? 05/13/2023 06:35 Baso % 0.4 % ()?? 05/13/2023 06:35 Imm Gran 0.4 % ()?? 05/13/2023 06:35 Abs. Imm Gran 0.0 k/mm3 ()?? 05/13/2023 06:35 ?? CARDIAC Nt-Probnp 02590 pg/mL (High)?? 05/13/2023 06:35 High Sensitivity Troponin (HSTnT) 107 ng/L (Critical)?? 05/13/2023 06:35 ?? CHEM GENERAL Sodium 139 mmol/L ()?? 05/13/2023 06:35 Potassium 5.1 mmol/L ()?? 05/13/2023 06:35 Chloride 99 mmol/L ()?? 05/13/2023 06:35 Bicarbonate Level 26 mmol/L ()?? 05/13/2023 06:35 Anion Gap 14 ()?? 05/13/2023 06:35 Glucose Level 89 mg/dL ()?? 05/13/2023 06:35 BUN 35 mg/dL (High)?? 05/13/2023 06:35 Creatinine-Blood 6.9 mg/dL (High)?? 05/13/2023 06:35 Estimated GFR Creatinine 8 ML/MIN/1.73 M2 ()?? 05/13/2023 06:35 Calcium 8.4 mg/dL (Low)?? 05/13/2023 06:35 ?? HEME OTHER Hold Blue Top SPECIMEN DISCARDED AFTER 4 HOURS. ()?? 05/13/2023 08:53 ?? VIROLOGY COVID-19 by RT-PCR NEGATIVE ()?? 05/13/2023 07:05 ?? No qualifying data available ? Assessment/Plan Mr. Small is a 67-year-old male with a history of ESRD secondary to diabetic nephropathy who dialyzes on a??M/W/F schedule at [facility] via a right upper extremity AV Fistula. ??He presented to [facility] on [place] in the setting of feeling fatigued, lightheaded, and tired. ??He was found to be anemic at outpatient dialysis and sent in for transfusion prior to dialysis due to symptomaticanemia.?? In the ED, pt was found to have HGB of 5.7.? 1. ESRD on HD - schedule: M/W/F at [facility] - access: RUE AVF ?? 2. Symptomatic Anemia ?? Plan - transfuse 1 unit PRBC, possibly on dialysis today - HD on M/W/F schedule while admitted ?? Case discussed with Dr. Lopez. Thank you for allowing us to participate in your patient's care. ?? Mary Ellen Mcdonald [facility]- [facility] ? * Barrie Lopez MD: PERFORM Event Display: Consultation Note Authored Date: [id number] RENAL ATTENDING ADDENDUM:??I have seen and evaluated this patient. I have discussed the case and its management with the resident/team as documented in the resident/team note on the day of service. The details of the case including pertinent labs and clinical findings were confirmed by me. The planwas formulated with the student/resident/fellow/PA/FILM DEVELOPER as outlined below.?? Note * Liliam Espinal RN: PERFORM Event Display: Discharge/Transfer Note Hospital Authored Date: [id number] Nursing Discharge Note Entered On: 05/14/2023 16:14 EDT Performed On: 05/14/2023 16:13 EDT by Liliam Espinal RN Nursing Discharge Note 2 Discharge Time : 05/14/2023 15:40 EDT Discharge Level of Care at Discharge : Calculator Operator Care Facility Discharge Nursing Homes/Rehab Facilities : [facility] ([facility]) Patient Left Unit Via : Ambulance Patient Accompanied Off Unit with : Ambulance/Chair Van Personnel Handover Given to Transport Personnel : Yes DC Instructions Provided & Signed by Pt : Unable Patient Understands D/C Instructions : Unable Patient Instructions Discharge Signed : Yes Did Pt have Specialty Bed or Wound Vac : No Liliam Espinal RN - 05/14/2023 16:13 EDT * Rosamaria Strauss MD: PERFORM, MODIFY Event Display: Discharge/Transfer Note Hospital Authored Date: Patient: ??SMALLJOELEN ? Age:??67 Years?Sex:??Male?:??1955?? Patient Information Discharge Location: Primary Care Physician: Rasta Guerrero MD Admit Date/Time: 05/13/23 10:14 Discharge Disposition Discharge Disposition: [facility] Facility/Rehab Discharge Diagnosis Acute on chronic anemia (D64.9) COPD (chronic obstructive pulmonary disease) (J44.9) ESRD on dialysis (N18.6) COPD (chronic obstructive pulmonary disease) Coronary artery disease ESRD on dialysis Hyperlipidemia Hypothyroidism Peripheral vascular disease Respiratory failure, chronic ?? _ Discharge Medications Acetaminophen (acetaminophen 325 mg oral tablet)?650 Unknown, Oral, 0 Refill(s), Take 650 mg by mouth Atorvastatin (atorvastatin 80 mg oral tablet)?1?tab(s)?80?Milligram?By Mouth?Daily at bedtime Bisacodyl (bisacodyl 5 mg oral delayed release tablet)?5 Unknown, Oral, 0 Refill(s), Take 5 mg by mouth 1 (one) time each day if needed for constipation Do not crush, chew, or split. Brimonidine Ophthalmic (brimonidine 0.2% ophthalmic solution)?2?Drops?Eyes, Both?2 [...] Thursday and Thursday?(NOT ON CURRENT PAPER CHART) Ergocalciferol (ergocalciferol 13117 iu oral capsule)?10563 Unknown, Oral, 0 Refill(s), Take 50,000 Units by mouth 1 (one) time per week Ferrous Sulfate (ferrous sulfate 325 mg oral enteric coated tablet)?325?Milligram?By Mouth?Daily Gabapentin (gabapentin 100 mg oral capsule)?200?Milligram?2?capsule?By Mouth?Daily at bedtime hydrALAZINE (hydrALAZINE 25 mg oral tablet)?25?Milligram?1?tablet?By Mouth?3 times a day?as needed?for 30?Days?Give if BP > 140 inspite of all his other BP ??meds?Blood Pressure hydrALAZINE (hydrALAZINE 50 mg oral tablet)?90 tablet, 0 Refill(s) Isosorbide Mononitrate (Imdur ER)?60?Milligram?By Mouth?Daily?Hold for systolic BP<100 mm Hg Levothyroxine (levothyroxine 0.2 mg oral tablet)?1?tab(s)?200?Microgram?By Mouth?Daily Lidocaine Topical (lidocaine 4% topical cream)?Topically?Every Thursday, Thursday and Thursday?Aplly to fistula prior to dialysis Multivitamin (Vitamin B Complex oral tablet, extended release)?1?tab(s)?By Mouth?Daily nalOXONE (Narcan 4 mg/0.1 mL nasal spray)?4?Milligram?Naris, Left?Once?as needed?as needed NIFEdipine (NIFEdipine 60 mg oral tablet, extended release)?60?Milligram?1?tablet?ByMouth?2 times a day Pantoprazole (pantoprazole 40 mg oral delayed release tablet)?1?tab(s)?40?Milligram?By Mouth?2 times a day Senna (Senna 8.6 mg oral tablet)?8.6?Milligram?1?tab(s)?By Mouth?2 times a day Sucralfate (sucralfate 1 gm oral tablet)?1?gram?1?tablet?By Mouth?2 times a day?before meals ? Medications Started none Medications Discontinued none Doses Changed none PCP Follow-Up/Heads-Up ?? Please continue checking H+H on HD days , transfuse as needed ?? Hospital Course Leoncio Small is a 67-year-old man with COPD chronically on 3 L of oxygen, coronary artery disease status post CABG, ESRD on hemodialysis Thursday/Thursday/Thursday via right upper extremity fistula, prior heavy smoker,bilateral AKA from peripheral vascular disease and wheelchair dependent, GAVE syndrome with prior GIB who presented with lethargy and fatigue from dialysis. While at dialysis his labs were checked and he was found to be severely anemic. His baseline hemoglobin is around 7.5-8.5, however in dialysis it was around 6, on recheck in the ED 5.7. Patient does note few days of generalized fatigue, lethargy. Also reports sudden onset of retrosternal chest painthat is worse with exertion, started yesterday. He also notes he is more short of breath, oxygen requirements are unchanged. Patient also reports cough, productive, Intermittent diarrhea. No fevers or chills. He is unsure if his stool is bloody or black. Of note, patient had an EGD/colonoscopy done in 10/2022 that showed normal esophagus, normal duodenum and the erosions in the whole stomach. Patient also has a prior documented history of gastric antral vascular ectasia (GAVE), with previous gastric bleeding. ?? In the ED, blood pressure was found to be 176/64, patient is saturating at 100% on 2 to 3 L of nasal cannula . His pulse is normal and he is afebrile. Labs are notable for as mentioned above for hemoglobin of 5.7, hematocrit of 18.4, MCV 104, platelet is 67, WBC 2.8. CXR showing vascular congestion. Electrolytes are stable. proBNP is 40,000, HS troponin is 107, similar to what it was back in January. Nephrology was contacted by the ED, patient will be going to dialysis and getting a blood transfusion. ?? Patient received 2 units of pRBCs, his Hb is 10.4 on day of discharge. No active bleeding appreciated. ? Acute on Chronic Anemia ??Hx of GAVE ??Prior Hx GIB ??baseline hb around 8 ??Patient is on IV iron and Mircera as outpatient ??Continue home Protonix and Carafate ??if develops melena/ acute GIB or hb does not respond appropriately, consult GI ??Last EGD/colonoscopy done in 10/2022 that showed normal esophagus, normal duodenum and the erosions in the whole stomach. He remained hemodynamically stable without obvious signs of bleeding Hb is 10.4 after 2 units Recommend outpatient follow-up, monitor BMs for blood/melena ESRD-related anemia management per nephrology ?? ESRD on HD ??Hypertension COntinue home meds and HD ?? Thrombocytopenia ??Leukopenia ??Recently evaluated by heme onc as outpatient ??Continue outpatient f/u as planned ?? CAD ??Hx of CABG ??Pt currently denies chest pain. Troponin is elevated but unchanged from prior. EKG NSR, no acute ischemic changes. Continue Lipitor, other meds as above ?? COPD on home O2 ??chronic hypoxic respiratory failure ??Currently stable ??No longer on inhalers, unclear??why ??Continue O2 supplementation and as needed duonebs ?? DNR ??discussed at length with patient who at first says he would like to be revived . Mentioned to him that even with resuscitation measures it is not guaranteed that he would be revived, in fact chances are small. Described chest compressions, possible rib fx etc Patient mentions he would definitelynot want that and opted for DNR at this time. ? Objective Vital Signs?? Temperature: 98.3 DegF (05/14/23 11:47:00) Temperature Route: Oral (05/14/23 11:47:00) Pulse Rate: 70 bpm (05/14/23 11:47:00) Respiratory Rate: 16 br/min (05/14/23 11:47:00) Systolic Blood Pressure:??160 mm Hg??High (05/14/23 11:47:00) Diastolic Blood Pressure: 65 mm Hg (05/14/23 11:47:00) Blood pressure sites: Arm, left (05/14/23 11:47:00) Mean Arterial Pressure: 97 mm Hg (05/14/23 11:47:00) Pulse Pressure: 95 mm Hg (05/14/23 11:47:00) Oxygen Saturation: 100 % (05/14/23 11:47:00) Liters per Minute: 4 L/min (05/14/23 04:06:00) Mode of Delivery (Oxygen): Room air (05/14/23 11:47:00) Early Warning Score: 4 (05/14/23 11:48:09) ? . Physical Exam General:??No acute distress, AAOx3. HEENT:??Atruamatic/normocephalic Cardio:??Regular rate Respiratory:??No wheezing, crackles at bases Abdomen:??Soft, slight epigastric tenderness Extremities:??b/l AKA Skin:??No rashes or hematomas appreciated. Neuro:??No focal deficits grossly. Pending Results COVID-19 (2019 Novel Coronavirus) PCR ordered on 05/13/2023 Transfuse RBCs ordered on 05/13/2023 Follow-Up Appointments Added Follow Up ?Time Frame ?Comments Rasta Guerrero MD Results Discharge Labs BLOOD BANK Blood Type O Positive ()?? 05/13/2023 06:27 Antibody Screen Positive ()?? 05/13/2023 06:27 RBC Unit ID [id number] ()?? 05/13/2023 11:30 RBC Available PT ()?? 05/13/2023 11:30 Antibody Identification 1 Anti-C ()?? 05/13/2023 08:47 Antibody Identification 2 Anti e ()?? 05/13/2023 08:47 ?? BLOOD COUNT & DIFF WBC 4.4 k/mm3 ()?? 05/14/2023 09:07 RBC 3.43 m/mm3 (Low)?? 05/14/2023 09:07 Hgb 10.4 Gm/dL (Low)?? 05/14/2023 09:07 Hct 31.5 % (Low)?? 05/14/2023 09:07 MCV 91.8 femtoliters ()?? 05/14/2023 09:07 MCH 30.3 pg ()?? 05/14/2023 09:07 MCHC 33.0 g/dL ()?? 05/14/2023 09:07 Platelet Count 78 k/mm3 (Low)?? 05/14/2023 09:07 RDW-SD 72.6 femtoliters (High)?? 05/14/2023 09:07 MPV NOT MEASURED femtoliters ()?? 05/14/2023 09:07 Nucleated RBC (Automated) 0.0 #/100 WBC'S ()?? 05/14/2023 09:07 Abs. NRBC 0.0 k/mm3 ()?? 05/14/2023 09:07 Abs. Neut 3.4 k/mm3 ()?? 05/14/2023 09:07 Abs. Lymph 0.5 k/mm3 (Low)?? 05/14/2023 09:07 Abs. Tattnall 0.3 k/mm3 (Low)?? 05/14/2023 09:07 Abs. Eo 0.2 k/mm3 ()?? 05/14/2023 09:07 Abs. Baso 0.0 k/mm3 ()?? 05/14/2023 09:07 Neut % 78.7 % (High)?? 05/14/2023 09:07 Lymph % 10.3 % (Low)?? 05/14/2023 09:07 [place] % 6.9 % ()?? 05/14/2023 09:07 Eos % 3.4 % ()?? 05/14/2023 09:07 Baso % 0.5 % ()?? 05/14/2023 09:07 Imm Gran 0.2 % ()?? 05/14/2023 09:07 Abs. Imm Gran 0.0 k/mm3 ()?? 05/14/2023 09:07 ?? CARDIAC Nt-Probnp 02505 pg/mL (High)?? 05/13/2023 06:35 High Sensitivity Troponin (HSTnT) 107 ng/L (Critical)?? 05/13/2023 06:35 ?? CHEM GENERAL Sodium 135 mmol/L ()?? 05/14/2023 09:07 Potassium 4.0 mmol/L ()?? 05/14/2023 09:07 Chloride 95 mmol/L (Low)?? 05/14/2023 09:07 Bicarbonate Level 28 mmol/L ()?? 05/14/2023 09:07 Anion Gap 12 ()?? 05/14/2023 09:07 Glucose Level 89 mg/dL ()?? 05/13/2023 06:35 BUN 35 mg/dL (High)?? 05/13/2023 06:35 Creatinine-Blood 6.9 mg/dL (High)?? 05/13/2023 06:35 Estimated GFR Creatinine 8 ML/MIN/1.73 M2 ()?? 05/13/2023 06:35 Calcium 8.4 mg/dL (Low)?? 05/13/2023 06:35 ?? HEME OTHER Hold Blue Top SPECIMEN DISCARDED AFTER 4 HOURS. ()?? 05/13/2023 08:53 ? VIROLOGY COVID-19 by RT-PCR NEGATIVE ()?? 05/13/2023 07:05 ? Imaging(s) ?Chest 2 Views Frontal and Lat ?? 05/13/2023 07:18??by Giselle Freed MD ? IMPRESSION: Findings suggestive of pulmonary edema, likely congestive heart failure. There is also low lung volumes and lower lung atelectasis. ?ECG 12-Lead ?? 05/13/2023 06:52??by Harsha Paul DO ?[id number] Ventricular Rate: 60 BPM Atrial Rate: 60 BPM P-R Interval: 192 ms QRS Duration: 76 ms Q-T Interval: 438 ms QTC Calculation(Bazett): 438 ms P [place]: 30 degrees R [place]: 0 degrees T [place]: -49 degrees Normal sinus rhythm Cannot rule out Anterior infarct (cited on or before 05-JAN-2023) Abnormal ECG When compared with ECG of 14-FEB-2023 08:36, T wave inversion less evident in Lateral leads Confirmed by HARSHA PAUL MD ([id number]) on 05/13/2023 9:17:59 AM ? Consults(s) ?Consultation Note ?? 05/13/2023 14:10??by Barrie Lopez MD ? Mr. Small is a 67-year-old male with a history of ESRD secondary to diabetic nephropathy who dialyzes on a M/W/F schedule at [facility] via a right upper extremity AV Fistula. He presented to [facility] [place] in the setting of feeling fatigued, lightheaded, and tired. He was found to be anemic at outpatient dialysis and sent in for transfusion prior to dialysis due to symptomatic anemia. In the ED, pt was found to have HGB of 5.7. ?? 1. ESRD on HD ??- schedule: M/W/F at [facility] ??- access: RUE AVF ?? 2. Symptomatic Anemia ??- improved s/p 1 unit PRBC ?? Plan ??- HD on M/W/F schedule while admitted ??- transfuse as needed to maintain HGB >7.0 ?? Case discussed with Dr. Lopez. Thank you for allowing us to participate in your patient's care. ?? Mary Ellen Mcdonald [facility] ??[facility] ? 35 minutes spent on discharge * Ja Cain RN: PERFORM, SIGN, VERIFY Event Display: Case Management Discharge Plan Authored Date: Patient: SARWAT SMALL Age: 67 years Sex: Male : 1955 Associated Diagnoses: None Author: Ja Cain RN Discharge Plan Case Management Discharge Plan : Case Management Discharge Plan Data 05/14/2023 12:37 EDT Discharge Level of Care at Discharge Calculator Operator Care Facility Discharge Nursing Homes/Rehab Facilities [facility]) Discharge Transportation Arranged [facility] [address] [place] [address] Discharge Arranged Transport Date/Time 05/14/2023 14:00 Mode of Transportation Arranged Ambulance Name of Agency #1 [facility] Service Comments #1 Ambulance arranged for 2pm * Liliam Espinal RN: PERFORM Event Display: Patient Education/Instruction Authored Date: [id number] Inpatient Adult Discharge Instructions [address] [address] Name: SARWAT SMALL : 1955 Visit: 05/13/2023 10:14:00 Current Date: 05/14/2023 13:15 Account: [id number] Inpatient Adult Discharge Instructions We would like [...] and their families. Surveys are administered by [employer] ?? If further treatment with your primary care physician or another doctor is recommended, it is important for you to keep the appointment. Call your primary care physician or return to the Emergency Department immediately if your condition worsens, fails to improve, or new symptoms develop. If you need to find a doctor, you can call [facility] [employer] [facility] for a referral at [phone] or toll free at [phone] or log in to [email or web address].. ?? You can view and manage your care through the patient portal or by using a health care zeina of your choosing. [employer] is a website that allows you to securely view your medical information including your hospital discharge summary, office visit summaries, medications and follow-up visits. You can also request appointments, renew medications, and request access to your medical information using a health care zeina of your choosing, or just ask a question. You can enroll at [email or web address] or register during your next office visit. You have been discharged from [facility], Patient Care Unit: W4. If you have any questions regarding these instructions after you leave, please call us and we will be happy to assist you. [facility] Your Care Team Attending Physician Rica ROJAS, Rosamaria Discharging Providers Rosamaria Strauss MD Reason for Admission pt BIBA from dialysis d/t weakness, sluggishness, low H&H at dialysis. Told to come to ED for transfusion. Was suppose to get one tomorrow. Also reports chest pressure /10. Your Diagnosis ESRD on dialysis COPD (chronic obstructive pulmonary disease) Acute on chronic anemia Tests Performed Below is a partial list of the tests performed during your hospitalization. You may have had other tests and procedures not included in this list. Please discuss all test results with your provider. Basic Metabolic Panel CBC w/ Differential COVID-19 (Novel Coronavirus), Rapid PCR Electrolytes H + H High??Sensitivity??Troponin T Hold Blue Top Tube ProBNP Type and Screen CXR W/ Frontal and Lat Primary Care Provider Rasta Guerrero MD Advance Directive Health Care Proxy on File Yes - Health Care Proxy Yes - [facility]OL[facility] Discharge Vitals Temperature: 98.3 DegF Weight: 60 kg Pulse Rate: 70 bpm ?? Respiratory Rate: 16 br/min ?? Systolic Blood Pressure:??160 mm Hg??High ?? Diastolic Blood Pressure: 65 mm Hg ?? Oxygen Saturation: 100 % ?? Studies Pending All tests and labs ordered during this hospital stay have been completed unless listed below. Please discuss all pending results with your provider listed above in these instructions. ?? COVID-19 (2019 Novel Coronavirus) PCR Transfuse RBCs What to do next Instructions From Your Doctor Discharge Orders You Need to Schedule the Following Appointments Follow Up with??Rasta Guerrero MD Where: [address] [facility] [place] [address]- Discharge Medications SARWAT SMALL :1955 Visit Date:05/13/2023 Medications: Please continue your medications until treatment is completed or stopped by your provider. Medications not listed below should be discontinued. Discuss any questions related to medications with your provider. What How Much When Instructions Next Dose Changed Acetaminophen (acetaminophen 325 mg oral tablet) 650 Unknown, Oral, 0 Refill(s), Take 650 mg by mouth ?? as needed Changed Atorvastatin (atorvastatin 80 mg oral tablet) 1 tab(s) Oral Daily at Bedtime 05/14 @ 9pm tonight Changed Clonidine (cloNIDine 0.2 mg oral tablet) 1 tab(s) Oral Twice a day every Thursday, Thursday,and Thursday * hold for systolic blood pressure <110 ?? 05/15 @ 9am tomorrow Changed Clonidine (cloNIDine 0.2 mg oral tablet) 1 tab(s) Oral 3 times a day Every Thursday, Thursday, , and Thursday ?? Thursday Changed Isosorbide Mononitrate (Imdur ER) 60 Milligram Oral Daily Hold for systolic BP<100 mm Hg ?? 05/15 @ 9am tomorrow Changed Levothyroxine (levothyroxine 0.2 mg oral tablet) 1 tab(s) Oral Daily 05/15 @ 9am tomorrow Changed NIFEdipine (NIFEdipine 60 mg oral tablet, extended release) 1 tab(s) Oral Twice a day 05/14 @ 9pm tonight Unchanged Bisacodyl (bisacodyl 5 mg oral delayed release tablet) 5 Unknown, Oral, 0 Refill(s), Take 5 mg by mouth 1 (one) time each day if needed for constipation Do not crush, chew, or split. ?? as needed Unchanged Brimonidine Ophthalmic (brimonidine 0.2% ophthalmic solution) 2 Drops Both eyes Twice a day 05/14 @ 9pm tonight Unchanged Carvedilol (carvedilol 25 mg oral tablet) 1 tab(s) Oral Twice a day 05/14 @ 9pm tonight Unchanged Cholecalciferol (cholecalciferol 50,000 intl units oral capsule) 1 capsule Oral Every 30 days on the ?? continue home sched Unchanged Docusate (docusate sodium 100 mg oral capsule) 1 capsule Oral Twice a day 05/14 @ 9pm tonight Unchanged Epoetin Jose 20,000 unit(s) IV Push Slowly Thursday, Thursday and Thursday (NOT ON CURRENT PAPER CHART) ?? 05/15 @ 9am tomorrow Unchanged Ergocalciferol (ergocalciferol 69658 iu oral capsule) 43877 Unknown, Oral, 0 Refill(s), Take 50,000 Units by mouth 1 (one) time per week ?? continue home sched Unchanged Ferrous Sulfate (ferrous sulfate 325 mg oral enteric coated tablet) 325 Milligram Oral Daily 05/15 @ 9am tomorrow Unchanged Gabapentin (gabapentin 100 mg oral capsule) 2 capsule Oral Daily at Bedtime 05/14 @ 9pm tonight Unchanged hydrALAZINE (hydrALAZINE 25 mg oral tablet) 1 tab(s) Oral 3 times a day as needed for Blood Pressure Duration: 30 Days Give if BP > 140 inspite of all his other BP ??meds ?? as needed Unchanged hydrALAZINE (hydrALAZINE 50 mg oral tablet) 90 tablet, 0 Refill(s) ?? 05/15 @ 9am tomorrow Unchanged Lidocaine Topical (lidocaine 4% topical cream) Topically Thursday, Thursday and Thursday Aplly to fistula prior to dialysis ?? after HD Unchanged Multivitamin (Vitamin B Complex oral tablet, extended release) 1 tab(s) Oral Daily 05/15 @ 9am tomorrow Unchanged nalOXONE (Narcan 4 mg/ 0.1 mL nasal spray) 4 Milligram Naris, Left Once as needed for as needed as needed Unchanged Pantoprazole (pantoprazole 40 mg oral delayed release tablet) 1 tab(s) Oral Twice a day 05/14 @ 9pm tonight Unchanged Senna (Senna 8.6 mg oral tablet) 1 tab(s) Oral Twice a day 05/14 @ 9pmt tonight Unchanged Sucralfate (sucralfate 1 gm oral tablet) 1 tab(s) Oral Twice a day before meals ?? 05/14 @ 9pm tonight Test Results Below is a partial list of the most recent Laboratory test results done prior to this discharge. You may have had other tests and procedures not included in this list. Please discuss all test resultswith your provider. Antibody Identification 1 - Anti-C (05/13/2023) Antibody Identification 2 - Anti e (05/13/2023) RBC Available - PT (05/13/2023) RBC Unit ID - [id number] (05/13/2023) Basic Metabolic Panel (05/13/2023) ???Sodium - 139 mmol/L???Potassium - 5.1 mmol/L???Chloride - 99 mmol/L???Bicarbonate Level - 26 mmol/L???Anion Gap - 14???Glucose Level - 89 mg/dL???BUN - 35 mg/dL???Creatinine-Blood - 6.9 mg/dL???Estimated GFR Creatinine - 8 ML/MIN/1.73 M2???Calcium - 8.4 mg/dL CBC w/ Differential (05/14/2023) ???WBC - 4.4 k/mm3???RBC - 3.43 m/mm3???Hgb - 10.4 Gm/dL???Hct - 31.5 %???MCV - 91.8 femtoliters???MCH - 30.3 pg???MCHC - 33.0 g/dL???Platelet Count - 78 k/mm3???RDW-SD - 72.6 femtoliters???MPV - NOTMEASURED???Nucleated RBC (Automated) - 0.0 #/100 WBC'S???Abs. NRBC - 0.0 k/mm3???Abs. Neut - 3.4 k/m m3???Abs. Lymph - 0.5 k/mm3???Abs. [place]att[place] - 0.3 k/mm3???Abs. Eo - 0.2 k/mm3???Abs. Baso - 0.0 k/mm3???Neut % - 78.7 %???Lymph % - 10.3 %???[place] % - 6.9 %???Eos % - 3.4 %???Baso % - 0.5 %???Imm Gran - 0.2 %???Abs. Imm Gran - 0.0 k/mm3 COVID-19 (Novel Coronavirus), Rapid PCR (05/13/2023) ???COVID-19 by RT-PCR - NEGATIVE Electrolytes (05/14/2023) ???Sodium - 135 mmol/L???Potassium - 4.0 mmol/L???Chloride - 95 mmol/L???Bicarbonate Level - 28 mmol/L???Anion Gap - 12 H + H (05/13/2023) ???Hgb - 14.1 Gm/dL???Hct - 41.6 % High??Sensitivity??Troponin T (05/13/2023) ???High Sensitivity Troponin (HSTnT) - 107 ng/L Hold Blue Top Tube (05/13/2023) ???Hold Blue Top - SPECIMEN DISCARDED AFTER 4 HOURS. ProBNP (05/13/2023) ???Nt-Probnp - 12661 pg/mL Type and Screen (05/13/2023) ???Blood Type - O Positive???Antibody Screen - Positive Allergies (NKA means No Known Allergies) lisinopril Problems Active Problems??(17) Anemia?? Anemia of chronic disease?? Chronic pain syndrome?? [...] Belongings I fully understand and agree that [facility] accepts no responsibility for all my personal [...] witness Date for Pt to Sign Valuables/Belongings: 05/13/23 20:00:00 ?? Other Discharge Information ? Case Management Discharge Plan?? Discharge Plan?? Discharge Agency Information?? Discharge Level of Care at Discharge: Long-Term Care Facility Name of Agency #1: [facility] Discharge Transportation Arranged: [facility] [address] [facility] [phone] Service Comments #1: Ambulance arranged for 2pm Mode of Transportation Arranged: Ambulance ?? Discharge Arranged Transport Date/Time: 05/14/23 14:00:00 ?? Discharge Nursing Homes/Rehab Facilities: [facility]) ? Pulmonary Rehab Status?? Pulmonary Rehab Discharge Status?? Respiratory Rate: 16 br/min ? Common Emergency Awareness Tips IS [...] are strongly encouraged to quit. Please call [facility] [employer] at [phone] or [phone] or log in to [email or web address] for referrals to smoking cessation programs. ?? 344 Suicide & Crisis Lifeline is available 20/04 if you or someone you know needs to find a reason to keep living. By calling 066 you'll be connected to a skilled, trained counselor at a crisis center in your area. INPATIENT DISCHARGE INSTRUCTIONS SIGNATURE PAGE SARWAT SMALL Location:[facility] Registration Date and Time:05/13/2023 10:14 EDT Primary Care Physician: Rasta Guerrero MD, Attending Physician: Rosamaria Strauss MD, I SARWAT SMALL, have received the above patient education materials/instructions and have verbalized understanding. If ambulance or transport services are being used I further acknowledge being given a choice of service. ?? If you need to contact me, please call me at this number: . Patient/Or First Assist Registered Nurse Name: Patient/Or First Assist Registered Nurse Signature: Relationship to Patient: Witness Name/Signature: Date: Patient Care team information Care Team Personnel Name: Capri Bush RN Position: [facility] RN Member Role: Primary Care Nurse Name: Linda La RN Position: [facility] Outreach Member Role: Primary Care Nurse Name: Arlen Hale LPN Position: [facility] RN Member Role: Primary Care Nurse Name: Chloe Dhaliwal RN Position: [facility] RN Member Role: Primary Care Nurse Name: Laureano Crawley RN Position: [facility] RN Member Role: Primary Care Nurse Name: Mary Ellen Mcdonald NP Position: [facility] Associate Professional Member Role: Lifetime Consulting Provider Address: Address: [address] [place], [place] [address] [place], [place] [address] Name: Barrie Lopez MD Position: [facility] Renal MD Member Role: Lifetime Consulting Physician Address: Address: [address] [facility] [address] [facility] [place] [address]- [place] Name: Harsha Trent RN Position: [facility] RN Member Role: Primary Care Nurse Name: Wojciech Arriaga RN Position: S RN Member Role: Primary Care Nurse Name: Jodi Parr RN Position: S RN Member Role: Primary Care Nurse Name: Nasreen Gamble RN Position: [facility] OB RN Member Role: Primary Care Nurse Name: Marvin Dooley DO Position: [facility] Renal MD Member Role: Lifetime Consulting Physician Address: Address: [address] [place] [address] [address] [facility] [place] [address]- Name: Fermín Dominguez III, RN Position: [facility] RN Member Role: Primary Care Nurse Name: Rut Tucker Position: [facility] RN Member Role: Primary Care Nurse Name: Ham Floyd RN Position: [facility] RN Member Role: Primary Care Nurse Name: Gutierrez Anderson MD Position: [facility] Renal MD Member Role: Lifetime Consulting Physician Address: Address: [address] [facility] [address] [facility] [place] [address]- [place] Name: Rasta Guerrero MD Position: [facility] Outreach Member Role: PCP Address: Address: [address] [facility] [place] [address]- Name: Leeann Brown RN Position: [facility] RN Member Role: Primary Care Nurse Name: Pepe Brown RN Position: [facility] RN Member Role: Primary Care Nurse Name: Kassy Jo RN Position: [facility] SN RN Member Role: Primary Care Nurse Name: Patricia Chase RN Position: [facility] RN Member Role: Primary Care Nurse Name: Felisha Lilly Position: [facility] AMB [place] Member Role: Primary Care Nurse Name: Martha Lawson RN Position: [facility] RN Member Role: Primary Care Nurse Name: Geraldine Whyte RN Position: [facility] RN Member Role: Primary Care Nurse Name: Kyle Matthews RN Position: [facility] RN Member Role: Primary Care Nurse Name: Rasta Silverio RN Position: [facility] RN Member Role: Primary Care Nurse Name: Judi Phillips RN, I Position: [facility] RN Member Role: Primary Care Nurse Name: Zena Jones RN Position: [facility] ED RN W/OE and Tasks Member Role: Patient Care Provider Name: Juan Carlos Cr DO Position: [facility] Resident Member Role: Resident Address: Address: [address] [place] [address], [address] [facility] [place] [address]- Name: Елена Quinonez MD Position: [facility] ED Medicine MD Member Role: ED Attending Physician Address: Address: [address] [place] [address] [place] [address]- Name: Nasreen Browne Position: [facility] ED TA [facility] Member Role: Patient Care Provider Care Team Related Persons Name: DANNA ORR Address: [place] [address]
--- OUTSIDE RECORDS SUMMARY | 2023-08-23 07:14 | XMS_ITS | Continuity of Care Document ---
Author Name Unknown Organization [facility] ter Address [address] [place] [id number] Care Team Providers Care Knobber Name Role Phone Ashley Byrne MD Primary Care Physician [phone] [place] [facility] [place]14/22 - 10/16/[address] [id number]- Encounter Diagnosis Symptomatic anemia(Final) - 10/14/22 Volume overload(Final) - 10/14/22 ACS (acute coronary syndrome)(Final) - 10/14/22 Discharge Disposition: A-Transfer SNF Attending Physician: Tea Estrada MD Admitting Physician: Sandy ROJAS, Mic P Referring Physician: Not on Staff, Referring MD Allergies, Adverse Reactions, Alerts Substance Reaction Severity Status lisinopril Active Immunizations Given and Recorded Vaccine Date Status Refusal Reason [id number] 12y+ bivalent booster vax 08/01/22 Recorded SARS-CoV-2 (COVID-19) mRNA-1273 vaccine 07/04/22 R ecorded SARS-CoV-2 (COVID-19) mRNA-1273 vaccine 11/13/20 R ecorded SARS-CoV-2 (COVID-19) mRNA-1273 vaccine 10/15/20 R ecorded SARS-CoV-2 mRNA ([id number]) vax 02/04/22 Recorded SARS-CoV-2 (COVID-19) mRNA BNT-162b2 [...] tablet 25 mg, Tablet, By Mouth, Hold for systolic BP<100 mm Hg, 10/16/22 9:00:00 EST Start Date: 10/16/22 Stop Date: 10/16/22 Status: Completed cholecalciferol 50,000 intl units oral [...] Status: Ordered oxyCODONE 5 mg oral tablet 2.5 mg, Tablet, By Mouth, Every 6 hours, PRN for Pain , Severe, Routine, 10/15/22 0:50:00 EST Start Date: 10/15/22 Stop Date: 10/17/22 Status: Discontinued pantoprazole 40 mg oral delayed [...] Exam Date Time Procedure Performing Provider Status 10/14/22 3:51 AM Chest Portable Arias , Navjot; Auth (Brent ified) Notes: (Chest Portable) Reason For Exam: Shortness of Breath RESULT: Chest Portable Chest Portable HX OF PRESENT ILLNESS: BIBEMS from home c o SOB. Hemodialysis pt, pt reports compliance and due fortx today. Reports mild CP. Denies other complaints.; Reason: Shortness of Breath; Clinical Question(s): CHF / CHF COMPARISON: 07/20/2022 FINDINGS: LINES AND TUBES: None. LUNGS AND PLEURA: Pulmonary vascular congestion and diffuse interstitial prominence. Moderate right and small left pleural effusions. No pneumothorax. HEART, MEDIASTINUM AND JOSELYN: Mild prominence of the cardiac silhouette. Aorta is tortuous and partially calcified. BONES AND SOFT TISSUES: No acute abnormality. Status-post median sternotomy. Left axillary region stent. IMPRESSION: Interstitial pulmonary edema with right larger than left pleural effusions. WSN: [id number] Ordering Physician: Danna Agosto Dictated By: Godwin Blanco MD Dictated Date/Time: 10/14/22 8:19 am Reviewed By: Godwin Blanco MD Signed By: Godwin Blanco MD Signed Date/Time: 10/14/22 8:19 am Transcribed By: WILFREDO Transcribed Date/Time: 10/14/22 8:18 am Vital Signs Most recent to oldest [Reference Range]: 1 2 3 Weight 58.2 kg (10/15/22 5:00 PM) 56.6 kg (10/14/22 11:07 AM) Oxygen Saturation [94-100 %] 97 % (10/16/22 4:17 PM) 100 % (10/16/22 7:51 AM) 100 % (10/16/22 2:00 AM) Pulse Rate [55-90 bpm] 97 bpm *H* (10/16/22 4:17 PM) 59 bpm (10/16/22 7:51 AM) 59 bpm (10/16/22 7:47 AM) Blood Pressure [90-138/55-84 mm Hg] 171/63mm Hg *H* (10/16/22 5:05 PM) 191/66mm Hg *H* (10/16/22 4:17 PM) 153/62mm Hg *H* (10/16/22 7:51 AM) Respiratory Rate [16-30 br/min] 19 br/min (10/16/22 4:17 PM) 8 br/min *L* (10/16/22 1:57 PM) 18 br/min (10/16/22 8:47 AM) Temperature [96.8-100.4 DegF] 97.5 DegF (10/16/22 4:17 PM) 97.9 DegF (10/16/22 7:51 AM) 97.6 DegF (10/16/22 2:00 AM) Liters per Minute 2 L/min (10/16/22 4:17 PM) 3 L/min (10/16/22 7:00 AM) 3 L/min (10/16/22 2:00 AM) Mode of Delivery (Oxygen) Nasal cannula (10/16/22 4:17 PM) Nasal cannula (10/16/22 7:00 AM) Nasal cannula (10/16/22 2:00 AM) Blood pressure sites Arm, left (10/16/22 5:05 PM) Arm, left (10/16/22 4:17 PM) Arm, left (10/16/22 7:51 AM) Temperature Route Oral (10/16/22 4:17 PM) Oral (10/16/22 7:51 AM) Oral (10/16/22 2:00 AM) Dry Weight 56.6 kg (10/14/22 11:07 AM) Weight Obtained Via Bed scale (10/14/22 11:07 AM) Dry Weight Obtained Via Bed scale (10/14/22 11:07 AM) Social History Social History Type Response Smoking Status Former smoker, quit more than 30 days ago; Other: Quit 20 years ago, smoked for 30 years 1.5 ppd; entered on: 06/30/22 Sex Admission evaluation note * Selam ROJAS, Zach Covington: MODIFY, MODIFY, MODIFY, MODIFY, MODIFY, MODIFY, MODIFY, PERFORM Event Display: Admission Note Authored Date: [id number] Patient: ??SARWAT SMALL ? Age:??67 Years?Sex:??Male?:??1955?? Chief Complaint/Reason for Consultation Pt arrives via EMS from [facility] c/o chest pain and SOB. Pt is a dialysis pt, due for dialysis today. Pt has a h/o CABG. History of Present Illness 67-year-old gentleman with past medical history??of end-stage renal disease on hemodialysis??via right upper extremity fistula??on Tuesdays, , Saturdays,??coronary artery disease, peripheralvascular disease??status post bilateral AKA, chronic anemia, hyperlipidemia??[facility]??with complaints of increased shortness of breath??and wheezing??and chest pain.?? Patient is due for??dialysis today.?? proBNP is??significantly elevated??[address]. HS troponins??109, 106.?Potassium level is normal??4.6;??The patient is due??for??hemodialysis today.?? Patient follows up with??kidney care??renal team.?? The patient is being admitted to [facility] for further evaluation and treatment. Review of Systems Constitutional: No fever HEENT: No visual loss, blurred vision, double vision or yellow sclera. No runny nose or sore throat. Cardiovascular: No chest pain, palpitations or pedal edema. Respiratory: Shortness of breath, wheezing.??No or sputum production. Gastrointestinal: No nausea, vomiting or diarrhea. No abdominal pain.?? Neurologic: No headache, dizziness, unilateral weakness, numbness or tingling in the extremities. Objective ? Vital Signs?? Temperature: 98.6 DegF (10/14/22 03:55:00) Temperature Route: Oral (10/14/22 03:55:00) Pulse Rate: 65 bpm (10/14/22 04:44:00) Respiratory Rate: 22 br/min (10/14/22 04:44:00) Systolic Blood Pressure:??151 mm Hg??High (10/14/22 05:31:00) Diastolic Blood Pressure: 71 mm Hg (10/14/22 05:31:00) Blood pressure sites: Arm, left (10/14/22 04:44:00) Mean Arterial Pressure: 98 mm Hg (10/14/22 05:31:00) Pulse Pressure: 80 mm Hg (10/14/22 05:31:00) Oxygen Saturation: 95 % (10/14/22 04:44:00) Mode of Delivery (Oxygen): BiPAP (10/14/22 04:44:00) FiO2: 25 % (10/14/22 03:41:00) Early Warning Score:??10??Critical (10/14/22 10:38:58) ? Intake/Output? No Data Available ?? Precautions No Precautions documented.? Mobility & Ambulation Level Mobility & Ambulation Level?? No qualifying data available. ? Physical Exam ?? General: Alert Mental Status: Oriented to person, [...] or lesions.?? Musculoskeletal: No cyanosis or clubbing. b/l ?? Assessment/Plan Diagnoses ACS (acute coronary syndrome) ??(I24.9) Symptomatic anemia ??(D64.9) Volume overload ??(E87.70) ?? Assessment:??67-year-old gentleman with past medical history of end-stage renal disease on hemodialysis via right upper extremity fistula on Tuesdays, , Saturdays, coronary artery disease, peripheral vascular disease status post bilateral AKA, chronic anemia, hyperlipidemia presented to [facility] with complaints of increased shortness of breath and wheezing and chest pain. Patient is due for dialysis today. proBNP is significantly elevated [address]. HS troponins 109, 106. Potassium level is normal 4.6; The patient is due for hemodialysis today. Patient follows up with kidney care renal team. The patient is being admitted to [facility] for further evaluation and treatment. ? 1.?Hypertension??urgency: Fluid overload: Patient blood pressure is elevated??194/73 mmHg Patient??is on??end-stage renal disease patient I will give??carvedilol 25 mg??twice daily,??clonidine??0.2 mg??twice daily, Imdur 30 mg daily, isosorbide mononitrate??30 mg daily Patient was on??nitroglycerin drip??which is now stopped We will monitor??blood pressure closely and adjust antihypertensive medications??accordingly ? 2.?End-stage renal disease: Patient follows up with kidney care nephrology team??and I discussed with them Patient is having hemodialysis today??via right upper extremity fistula Potassium level??is normal 4.6 Further care as per renal team We will continue with sevelamer ? 3.?Peripheral vascular disease??status post??bilateral above-knee amputation We will continue with??aspirin, atorvastatin ? 4.?History of coronary artery disease: Status post CABG Patient??denies chest pain HS??troponins 109, 106 We will continue with??aspirin, atorvastatin ? 5.?Severe anemia: Hemoglobin is??low??6.6 Type and crossmatch Talked to??blood bank Will give blood transfusion to transfuse slowly?? @ rate 42??mL/h??to avoid??TACO reaction ? 6. ??Hyperlipidemia: We will continue with??atorvastatin ? 7.?DVT prophylaxis:??Subcu pneumatic compression boots. ??Will avoid heparin products??because of severe anemia Diet: Renal diet CODE STATUS:??Full code ? I have discussed the??plan with the patient??at bedside??and he is in agreement ? Discharge Planning:? Histories Allergies Allergies ?(Active and Proposed Allergies Only) lisinopril? (Severity: Unknown severity, Onset: Unknown) ? Past Medical History/Problem List Active Problems??(15) Anemia [...] for constipation Brimonidine Ophthalmic (brimonidine 0.2% ophthalmic solution)?1?Drops?Eyes, Both?2 times a day Carvedilol (carvedilol 25 mg oral tablet)?25?Milligram?1?tablet?By Mouth?2 times a day Cholecalciferol (cholecalciferol 50,000 intl units oral capsule)?1?capsule?1,250?Microgram?By Mouth?Every 30 days?on the Clonidine (cloNIDine 0.1 mg oral tablet)?0.2?Milligram?2?tablet?By Mouth?3 times a day Docusate (docusate sodium 100 mg oral capsule)?100?Milligram?1?capsule?By Mouth?2times a day Docusate-Senna (Docusate/Senna Tablet)?1?tab(s)?By Mouth?2 times a day?as needed?Constipation Epoetin Jose?1?Milliliter?20,000?unit(s)?IV Push Slowly?Every Thursday, Thursday and Thursday?(NOT ON CURRENT PAPER CHART) Gabapentin (gabapentin 100 mg oral capsule)?100?Milligram?1?capsule?By Mouth?Daily Isosorbide Mononitrate (Imdur 30 mg oral tablet, extended release)?1?tablet?By Mouth?Daily Levothyroxine (levothyroxine 200 mcg (0.2 mg) oral [...] delayed release tablet)?1?tab(s)?40?Milligram?By Mouth?2 times a day Sevelamer (sevelamer carbonate 800 mg oral tablet)?1?tab(s)?800?Milligram?By Mouth?3 times a day with meals ? Inpatient Medications Medications (23) Active SCHEDULED: (15) Aspirin 81 mg Chew Tablet (aspirin 81 mg oral tablet, chewable) ??81 mg, By Mouth, Daily Atorvastatin 80 mg Tablet (atorvastatin 80 mg oral tablet) ??80 mg, By Mouth, Daily at bedtime Brimonidine 0.2% Ophthalmic Solution (brimonidine 0.2% ophthalmic solution) ??0.2 % 1 drops, Eyes, Both, 2 times a day Carvedilol 25 mg Tablet (carvedilol 25 mg oral tablet) ??25 mg, By Mouth, 2 times a day Cholecalciferol (cholecalciferol 1000 intl units oral tablet) ??1,250 mcg, By Mouth, Every 30 days Clonidine 0.1 mg Tablet (cloNIDine 0.1 mg oral tablet) ??0.2 mg, By Mouth, 3 times a day Gabapentin 100 mg Capsule (gabapentin 100 mg oral capsule) ??100 mg, By Mouth, Daily Heparin 5000 units/mL Inj (1 mL) (Heparin Inj) ??5,000 units 1 mL, Subcutaneous Injection, 3 times a day Isosorbide Mononitrate 30 mg ER Tablet (Imdur 30 mg oral tablet, extended release) ??30 mg, By Mouth, Daily Levothyroxine 100 mcg Tablet (levothyroxine 0.1 mg oral tablet) ??200 mcg, By Mouth, Daily Multivitamin (Nephrocap Capsule) ??1 tablet, By Mouth, Daily NaCl 0.9% Flush 3ml (NaCL 0.9% Flush) ??3 mL, IV Push, Every 8 hours NIFEdipine 60 mg ER Tablet (NIFEdipine 60 mg oral tablet, extended release) ??60 mg, By Mouth, 2 times a day Pantoprazole 40 mg EC Tablet (pantoprazole 40 mg oral delayed release tablet) ??40 mg, By Mouth, 2 times a day Sevelamer Carbonate 800 mg Tablet (sevelamer carbonate 800 mg oral tablet) ??800 mg, By Mouth, 3 times a day with meals CONTINUOUS: (0) PRN: (8) Acetaminophen 325 mg Tablet (Acetaminophen Tablet) ??650 mg, By Mouth, Every 4 hours Bisacodyl 10 mg Suppository (Dulcolax Supp) ??10 mg 1 supp, Rectally, Daily Melatonin 3 mg Tablet (Melatonin Tablet) ??3 mg, By Mouth, Daily at bedtime NaCl 0.9% Flush 3ml (NaCL 0.9% Flush) ??3 mL, IV Push, Every 8 hours Ondansetron 2mg/mL Inj (2mL Vial) (Ondansetron Inj) ??4 mg, IV Push Slowly, Every 30 minutes Polyethylene Glycol 17 Gm Powder (MiraLax Powder) ??17 Gm 1 pack/packet, By Mouth, Daily Senna 8.6 mg / Docusate 50 mg tablet (Docusate/Senna Tablet) ??1 tablet, By Mouth, 2 times a day Simethicone 80 mg Chewable Tablet (Simethicone Tablet) ??80 mg, Chew, 3 times a day ? Results Recent Labs BLOOD BANK Blood Type O Positive ()?? 10/14/2022 06:32 Antibody Screen Positive ()?? 10/14/2022 06:32 ?? BLOOD COUNT & DIFF WBC 3.9 k/mm3 (Low)?? 10/14/2022 03:37 RBC 2.19 m/mm3 (Low)?? 10/14/2022 03:37 Hgb 6.6 Gm/dL (Low)?? 10/14/2022 03:37 Hct 20.6 % (Low)?? 10/14/2022 03:37 MCV 94.1 femtoliters (High)?? 10/14/2022 03:37 MCH 30.1 pg ()?? 10/14/2022 03:37 MCHC 32.0 g/dL (Low)?? 10/14/2022 03:37 Platelet Count 59 k/mm3 (Low)?? 10/14/2022 03:37 RDW-SD 60.7 femtoliters (High)?? 10/14/2022 03:37 MPV NOT MEASURED femtoliters ()?? 10/14/2022 03:37 Nucleated RBC (Automated) 0.0 #/100 WBC'S ()?? 10/14/2022 03:37 Abs. NRBC 0.0 k/mm3 ()?? 10/14/2022 03:37 Abs. Neut 3.0 k/mm3 ()?? 10/14/2022 03:37 Abs. Lymph 0.5 k/mm3 (Low)?? 10/14/2022 03:37 Abs. Wilkes 0.3 k/mm3 (Low)?? 10/14/2022 03:37 Abs. Eo 0.1 k/mm3 ()?? 10/14/2022 03:37 Abs. Baso 0.0 k/mm3 ()?? 10/14/2022 03:37 Neut % 75.3 % ()?? 10/14/2022 03:37 Lymph % 13.5 % (Low)?? 10/14/2022 03:37 Wilkes % 7.6 % ()?? 10/14/2022 03:37 Eos % 2.8 % ()?? 10/14/2022 03:37 Baso % 0.3 % ()?? 10/14/2022 03:37 Hemoglobin (POC) POC Cartridge 6.8 Gm/dL (Low)?? 10/14/2022 03:56 Hematocrit (POC) POC Cartridge 20 % (Low)?? 10/14/2022 03:56 Imm Gran 0.5 % ()?? 10/14/2022 03:37 Abs. Imm Gran 0.0 k/mm3 ()?? 10/14/2022 03:37 ?? CARDIAC Nt-Probnp 66676 pg/mL (High)?? 10/14/2022 03:37 High Sensitivity Troponin (HSTnT) 106 ng/L (Critical)?? 10/14/2022 06:50 ?? CHEM GENERAL Sodium 139 mmol/L ()?? 10/14/2022 03:37 Potassium 4.6 mmol/L ()?? 10/14/2022 03:37 Chloride 98 mmol/L ()?? 10/14/2022 03:37 Bicarbonate Level 28 mmol/L ()?? 10/14/2022 03:37 Anion Gap 13 ()?? 10/14/2022 03:37 Sodium (POC) POC Cartridge 138 mmol/L ()?? 10/14/2022 03:56 Potassium (POC) POC Cartridge 4.3 mmol/L ()?? 10/14/2022 03:56 Chloride (POC) POC Cartridge 100 mmol/L ()?? 10/14/2022 03:56 Glucose (POC) POC Cartridge 106 (High)?? 10/14/2022 03:56 BUN 36 mg/dL (High)?? 10/14/2022 03:37 BUN (POC) POC Cartridge 41 mg/dL (High)?? 10/14/2022 03:56 Creatinine-Blood 7.6 mg/dL (High)?? 10/14/2022 03:37 Creatinine (POC) POC Cartridge 8.2 mg/dL (High)?? 10/14/2022 03:56 Estimated GFR Creatinine 7 ML/MIN/1.73 M2 ()?? 10/14/2022 03:37 Calcium 8.9 mg/dL ()?? 10/14/2022 03:37 Ionized Calcium (POC) POC Cartridge 1.10 mmol/L (Low)?? 10/14/2022 03:56 ?? COAG INR 1.2 (High)?? 10/14/2022 03:37 Protime (PT) 12.9 seconds (High)?? 10/14/2022 03:37 ?? VIROLOGY Influenza A PCR NEGATIVE ()?? 10/14/2022 03:45 Influenza B PCR NEGATIVE ()?? 10/14/2022 03:45 RSV PCR NEGATIVE ()?? 10/14/2022 03:45 COVID-19 PCR Specimen Source NASAL ()?? 10/14/2022 03:45 COVID-19 PCR Result NEGATIVE ()?? 10/14/2022 03:45 ? EKG study * Event Display: ECG 12-Lead Authored Date: Please click on pdf link to open report * Event Display: ECG 12-Lead Authored Date: Ventricular Rate: 71 BPM Atrial Rate: 71 BPM P-R Interval: 170 ms QRS Duration: 74 ms Q-T Interval: 412 ms QTC Calculation(Bazett): 447 ms P Somerset: 50 degrees R Somerset: 43 degrees T Somerset: -63 degrees Normal sinus rhythm Septal infarct , age undetermined ST and T wave abnormality, consider inferolateral ischemia Abnormal ECG When compared with ECG of 22-JUL-2022 11:35, Premature ventricular complexes are no longer Present T wave inversion more evident in Inferior leads T wave inversion less evident in Anterolateral leads Confirmed by HARSHA SHIPLEY MD ([id number]) on 10/15/2022 10:18:26 AM Cosby: HARSHA SHIPLEY MD Note * Darline Pruitt RN: PERFORM Event Display: Discharge/Transfer Note Hospital Authored Date: Nursing Discharge Note Entered On: 10/16/2022 17:11 EST Performed On: 10/16/2022 17:10 EST by Darline Pruitt RN Nursing Discharge Note 2 Discharge Time : 10/16/2022 17:05 EST Discharge Level of Care at Discharge : halfway facility Discharge Nursing Homes/Rehab Facilities : [facility] Patient Left Unit Via : Ambulance Patient Accompanied Off Unit with : Ambulance/Chair Van Personnel Handover Given to Transport Personnel : Yes DC Instructions Provided & Signed by Pt : No Patient Understands D/C Instructions : Yes Verbalized Understanding of D/C Plan By : Patient Patient Instructions Discharge Signed : No Instructions for Discharge Comments : pt d/c to rehab Did Pt have Specialty Bed or Wound Vac : No Darline Pruitt RN - 10/16/2022 17:10 EST * Tea Estrada MD: PERFORM, MODIFY Event Display: Discharge/Transfer Note Hospital Authored Date: Patient: ??SARWAT SMALL ? Age:??67 Years?Sex:??Male?:??1955?? Patient Information Discharge Location: W4 Primary Care Physician: Ashley Byrne MD Admit Date/Time: 10/14/22 06:43 Discharge Disposition Discharge Disposition: ??Rehab Discharge Diagnosis ACS (acute coronary syndrome) (I24.9) Symptomatic anemia (D64.9) Volume overload (E87.70) ?? _ Discharge Medications Acetaminophen (acetaminophen 325 [...] tablet)?1?gram?1?tablet?By Mouth?2 times a day?before meals ? Doses Changed Clonidine (cloNIDine 0.1 mg oral tablet)?0.2?Milligram?2?tablet?By Mouth?3 times a day?Hold for systolic BP<100 mm Hg NIFEdipine (NIFEdipine 60 mg oral tablet, extended release)?60?Milligram?1?tablet?ByMouth?2 times a day?Hold for systolic BP<100 mm Hg Isosorbide Mononitrate (Imdur ER)?60?Milligram?By Mouth?Daily?Hold for systolic BP<100 mm Hg Allergies Allergies ?(Active and Proposed Allergies Only) lisinopril? (Severity: Unknown severity, Onset: Unknown) ? PCP Follow-Up/Heads-Up BP medications dose adjustment done Further room to increase nifedipine to 90 mg twice daily or clonidine to 0.3 mg 3 times daily ?? received 1PRBC for anemia Hospital Course ??67-year-old gentleman with past medical history of chronic hypoxia (3 L O2??at baseline),??end-stage renal disease on hemodialysis via right upper extremity fistula on Tuesdays, , Saturdays, coronary artery disease, peripheral vascular disease status post bilateral AKA, chronic anemia, hyperlipidemia presented to [facility] with complaints of increased shortness of breath and chest pain in setting of hypertensive emergency and flash pulmonary edema.??ProBNP is significantly elevated [address]. HS troponins 109, 106. Improved post dialysis and with aggressive BP control.?BP improved after dialysis and medication adjustment. ?? Clinically and hemodynamically stable for discharge. back to 2 L home o2. Getting HD today prior todischarge. Transportation arranged at 4:[facility]PM [facility]. Patient??denies any chest pain, short of breath, palpitation, nausea vomiting abdominal pain Plan of care discussed with patient, in agreement, so discharge plan made To follow-up with primary care physician in 1-2 weeks after discharged from rehab, to be compliant with dialysis.?? Low salt diet counselled, he eats outside food at rehab.? Plan during hospitalization as below? Hypertension??urgency: Fluid overload: SOB 2/2 Flash pulmonary edema ?? Patient blood pressure??on admission??elevated??194/73 mmHg Patient??is on??end-stage renal disease patient Patient was on??nitroglycerin drip??which is now stopped ?? -He is at his baseline oxygen of 3 L, initial flash pulmonary edema induced shortness of breath hasresolved -Tolerated dialysis well yesterday, remains off of nitroglycerin drip -Blood pressure in the 190s this morning but achieving better control with current nifedipine, increased Imdur, clonidine and carvedilol combination.?? Further room to increase nifedipine to 90 mg twice daily or clonidine to 0.3 mg 3 times daily ?? End-stage renal disease: Patient follows up with kidney care nephrology team Hemodialysis via right upper extremity fistula TTS schedule : 10/16 today HD prior to discharge We will continue with sevelamer ?? Peripheral vascular disease??status post??bilateral above-knee amputation We will continue with??aspirin, atorvastatin ? History of coronary artery disease: Status post CABG Patient??denies chest pain HS??troponins 109, 106 We will continue with??aspirin, atorvastatin ? Chronic ??anemia: Hemoglobin on admission low??6.6, likely in setting of ESRD -Received 1 unit PRBC due to chronic anemia, good response with hemoglobin 8.6 ?? Chronic Pain -Endorses chronic back and hands arthritic pain, encouraged Tylenol use ?? Hyperlipidemia: We will continue with??atorvastatin ? DVT prophylaxis:??Subcu pneumatic compression boots. Avoid heparin products??until we see Hgb stable Diet: Renal diet CODE STATUS:??Full code ?? Disclaimer: ??This note ??was accomplished with use of [employer] voice recognition software, which is prone to medical and other word misidentifications and grammatical errors. ??The physician does strive to identify and correct these, but some could still be present. ??Please do not hesitate to contact the physician for clarifications. Objective . Physical Exam no acute distress, sitting on bed , on baseline 3L o2 b/l air entry no added sounds s1s2, no MRG abdomen soft, NT ND B/l AKA , no open wounds AAox3 no focal deficits [facility] renal kidney care Pending Results COVID-19 (2019 Novel Coronavirus) PCR ordered on 10/16/2022 Transfuse RBCs ordered on 10/14/2022 Patient Education Titles Discharge Instructions for Malignant Hypertension (Hypertensive Emergency or Urgency)?? Follow-Up Appointments Added Follow Up ?Time Frame ?Comments Ashley Byrne MD?1 week: call to discuss follow up visit Patient Instructions Medication changes : Clonidine 0.2 mg 3 times daily Nifedipine 60 mg daily Imdur 60 mg daily ?? -Compliant with dialysis -Compliant with renal diet/low-salt diet, limit outside food??with high sodium content Home Health Face to Face ^[facility] Results Discharge Labs BLOOD BANK Blood Type O Positive ()?? 10/14/2022 06:32 Antibody Screen Positive ()?? 10/14/2022 06:32 RBC Unit ID [id number] ()?? 10/14/2022 08:15 RBC Available PT ()?? 10/14/2022 08:15 ?? BLOOD COUNT & DIFF WBC 3.4 k/mm3 (Low)?? 10/15/2022 07:05 RBC 2.91 m/mm3 (Low)?? 10/15/2022 07:05 Hgb 8.9 Gm/dL (Low)?? 10/16/2022 08:14 Hct 27.1 % (Low)?? 10/16/2022 08:14 MCV 92.8 femtoliters ()?? 10/15/2022 07:05 MCH 29.6 pg ()?? 10/15/2022 07:05 MCHC 31.9 g/dL (Low)?? 10/15/2022 07:05 Platelet Count 55 k/mm3 (Low)?? 10/15/2022 07:05 RDW-SD 58.2 femtoliters (High)?? 10/15/2022 07:05 MPV NOT MEASURED femtoliters ()?? 10/15/2022 07:05 Nucleated RBC (Automated) 0.0 #/100 WBC'S ()?? 10/15/2022 07:05 Abs. NRBC 0.0 k/mm3 ()?? 10/15/2022 07:05 Abs. Neut 2.5 k/mm3 ()?? 10/15/2022 07:05 Abs. Lymph 0.5 k/mm3 (Low)?? 10/15/2022 07:05 Abs. Wilkes 0.3 k/mm3 (Low)?? 10/15/2022 07:05 Abs. Eo 0.1 k/mm3 ()?? 10/15/2022 07:05 Abs. Baso 0.0 k/mm3 ()?? 10/15/2022 07:05 Neut % 72.2 % ()?? 10/15/2022 07:05 Lymph % 15.6 % ()?? 10/15/2022 07:05 Wilkes % 8.6 % ()?? 10/15/2022 07:05 Eos % 2.7 % ()?? 10/15/2022 07:05 Baso % 0.6 % ()?? 10/15/2022 07:05 Hemoglobin (POC) POC Cartridge 6.8 Gm/dL (Low)?? 10/14/2022 03:56 Hematocrit (POC) POC Cartridge 20 % (Low)?? 10/14/2022 03:56 Imm Gran 0.3 % ()?? 10/15/2022 07:05 Abs. Imm Gran 0.0 k/mm3 ()?? 10/15/2022 07:05 ?? CARDIAC Nt-Probnp 58102 pg/mL (High)?? 10/14/2022 03:37 High Sensitivity Troponin (HSTnT) 106 ng/L (Critical)?? 10/14/2022 06:50 ?? CHEM GENERAL Sodium 135 mmol/L ()?? 10/16/2022 08:14 Potassium 4.5 mmol/L ()?? 10/16/2022 08:14 Chloride 94 mmol/L (Low)?? 10/16/2022 08:14 Bicarbonate Level 28 mmol/L ()?? 10/16/2022 08:14 Anion Gap 13 ()?? 10/16/2022 08:14 Sodium (POC) POC Cartridge 138 mmol/L ()?? 10/14/2022 03:56 Potassium (POC) POC Cartridge 4.3 mmol/L ()?? 10/14/2022 03:56 Chloride (POC) POC Cartridge 100 mmol/L ()?? 10/14/2022 03:56 Glucose Level 95 mg/dL ()?? 10/16/2022 08:14 Glucose (POC) POC Cartridge 106 (High)?? 10/14/2022 03:56 Glucose, POC 86 mg/dL ()?? 10/15/2022 11:38 BUN 47 mg/dL (High)?? 10/16/2022 08:14 BUN (POC) POC Cartridge 41 mg/dL (High)?? 10/14/2022 03:56 Creatinine-Blood 7.7 mg/dL (High)?? 10/16/2022 08:14 Creatinine (POC) POC Cartridge 8.2 mg/dL (High)?? 10/14/2022 03:56 Estimated GFR Creatinine 7 ML/MIN/1.73 M2 ()?? 10/16/2022 08:14 Calcium 8.9 mg/dL ()?? 10/14/2022 03:37 Ionized Calcium (POC) POC Cartridge 1.10 mmol/L (Low)?? 10/14/2022 03:56 ?? COAG INR 1.2 (High)?? 10/14/2022 03:37 Protime (PT) 12.9 seconds (High)?? 10/14/2022 03:37 ?? VIROLOGY Influenza A PCR NEGATIVE ()?? 10/14/2022 03:45 Influenza B PCR NEGATIVE ()?? 10/14/2022 03:45 RSV PCR NEGATIVE ()?? 10/14/2022 03:45 COVID-19 PCR Specimen Source NASAL ()?? 10/14/2022 03:45 COVID-19 PCR Result NEGATIVE ()?? 10/14/2022 03:45 ? Impression and Plan ?Mr. Small is a 67-year-old male with a history of ESRD secondary to diabetic nephropathy who dialyzes on a T/T/S schedule at [facility] via a right upper extremity AV Fistula. ??He presented to [facility] [place] in the setting of acute onset of shortness of breath and was found to have elevated BP in the 200s systolic. ??He was placed on a Nitro drip and BiPAP for support with subjective improvement. ??Renal was consulted for urgent initiation of HD.?1. ESRD on HD ?- schedule: T/T/S at [facility] ?- access: RUE AV Fistula ?2. Dyspnea ?- likely in the setting of volume overload, possibly flash pulmonary edema from HTN urgency ?- improved after HD ?3. HTN Urgency ?- improved with initiation of home meds ?Plan ?- HD on T/T/S schedule while admitted ?- if BP remains elevated, can increase Nifedipine to 90mg BID or increase Clonidine to 0.3mg TID ?- remainder of care per primary team ?Case discussed with Dr. Lopez. ??Thank you for allowing us to participate in your patient's care. ? [1] 35_ minutes spent on discharge [1]??Renal Progress Note; Tamara HOPE, Mary Ellen 10/16/2022 07:21 EST * Angelica Bowman RN: PERFORM, SIGN, VERIFY Event Display: Case Management Discharge Plan Authored Date: [id number] Patient: SARWAT SMALL Age: 67 years Sex: Male : 1955 Associated Diagnoses: None Author: Angelica Bowman RN Discharge Plan Case Management Discharge Plan : Case Management Discharge Plan Data 10/16/2022 10:34 EST Discharge Level of Care at Discharge halfway facility Discharge Nursing Homes/Rehab Facilities [facility] Discharge Transportation Arranged [facility] [phone] Discharge Arranged Transport Date/Time 10/16/2022 16:30 Mode of Transportation Arranged Ambulance Name of Agency #1 [facility] Agency Drag Out Worker #1 intake Service Categories #1 Prison Name of Person Notified of Transfer Patient * Darline Pruitt RN: PERFORM Event Display: Patient Education/Instruction Authored Date: [id number] Inpatient Adult Discharge Instructions [address] [address] Name: SARWAT SMALL : 1955 Visit: 10/14/2022 06:43:00 Current Date: 10/16/2022 15:27 Account: [id number] Inpatient Adult Discharge Instructions We would like [...] and their families. Surveys are administered by [employer] ?? If further treatment with your primary care physician or another doctor is recommended, it is important for you to keep the appointment. Call your primary care physician or return to the Emergency Department immediately if your condition worsens, fails to improve, or new symptoms develop. If you need to find a doctor, you can call [facility] for a referral at [phone] or toll free at [phone] or log in to [email or web address].. ?? You can view and manage your care through the patient portal or by using a health care zeina of your choosing. [employer] is a website that allows you to securely view your medical information including your hospital discharge summary, office visit summaries, medications and follow-up visits. You can also request appointments, renew medications, and request access to your medical information using a health care zeina of your choosing, or just ask a question. You can enroll at [email or web address] or register during your next office visit. You have been discharged from [facility], Patient Care Unit: W4. If you have any questions regarding these instructions after you leave, please call us and we will be happy to assist you. [facility] Your Care Team Attending Physician Sean ROJAS, Tea Ramos Consulting Providers John ROJAS, Barrie Discharging Providers Sean ROJAS, Tea Ramos Reason for Admission Pt arrives via EMS from [facility] c/o chest pain and SOB. Pt is a dialysis pt, due for dialysis today. Pt has a h/o CABG. Your Diagnosis Symptomatic anemia Volume overload ACS (acute coronary syndrome) Tests Performed Below is a partial list of the tests performed during your hospitalization. You may have had other tests and procedures not included in this list. Please discuss all test results with your provider. BUN BUN POC CARTRIDGE CALCIUM IONIZED POC CART Calcium Level CBC w/ Differential CHLORIDE POC CARTRIDGE COVID-19, RSV, and Flu A/B, Rapid PCR Creatinine CREATININE POC CARTRIDGE Electrolytes Glucose Level GLUCOSE POC GLUCOSE POC CARTRIDGE HEMATOCRIT POC CARTRIDGE HEMOGLOBIN POC CARTRIDGE Hgb + Hct High??Sensitivity??Troponin T INR POTASSIUM POC CARTRIDGE ProBNP SODIUM POC CARTRIDGE Type and Screen XR Chest Portable Primary Care Provider Ashley Byrne MD Advance Directive Health Care Proxy on File Yes - Health Care Proxy Yes - MOLST No qualifying data available. Discharge Vitals Temperature: 97.9 DegF Weight: 58.2 kg Pulse Rate: 59 bpm ?? Respiratory Rate:??8 br/min??Low ?? Systolic Blood Pressure:??153 mm Hg??High ?? Diastolic Blood Pressure: 62 mm Hg ?? Oxygen Saturation: 100 % [...] Where: Discharge Medications SARWAT SMALL :1955 Visit Date:10/14/2022 Medications: Please continue your medications until treatment is completed or stopped by your provider. Medications not listed below should be discontinued. Discuss any questions related to medications with your provider. What How Much When Instructions Next Dose Changed Brimonidine Ophthalmic (brimonidine 0.2% ophthalmic solution) 2 Drops Both eyes Twice a day 10/16 in pm Changed Cholecalciferol (cholecalciferol 50,000 intl units oral capsule) 1 capsule Oral Every 30 days on the ?? resume as previously prescribed Changed Clonidine (cloNIDine 0.1 mg oral tablet) 2 tab(s) Oral 3 times a day Hold for systolic BP<100 mm Hg ?? 10/16 in pm Changed Docusate (docusate sodium 100 mg oral capsule) 1 capsule Oral Twice a day 10/16 in pm Changed Isosorbide Mononitrate (Imdur ER) 60 Milligram Oral Daily Hold for systolic BP<100 mm Hg ?? 10/17 in am Changed NIFEdipine (NIFEdipine 60 mg oral tablet, extended release) 1 tab(s) Oral Twice a day Hold for systolic BP<100 mm Hg ?? 10/16 in pm Unchanged Acetaminophen (acetaminophen 325 mg oral tablet) 2 tab(s) Oral Every 6 hours as needed for as needed for fever/pain as needed Unchanged Aspirin (aspirin 81 mg oral tablet, chewable) 1 tab(s) Oral Daily 10/17 in am Unchanged Atorvastatin (atorvastatin 80 mg oral tablet) 1 tab(s) Oral Daily at Bedtime 10/16 in pm Unchanged Bisacodyl (Dulcolax 10 mg rectal suppository) 1 suppository(ies) Per rectum Daily as needed for as needed for constipation as needed Unchanged Carvedilol (carvedilol 25 mg oral tablet) 1 tab(s) Oral Twice a day 10/16 in pm Unchanged Epoetin Jose 20,000 unit(s) IV Push Slowly Thursday, Thursday and Thursday (NOT ON CURRENT PAPER CHART) ?? resume as previously prescribed Unchanged Gabapentin (gabapentin 100 mg oral capsule) 1 capsule Oral Daily 10/17 in am Unchanged Levothyroxine (levothyroxine 200 mcg (0.2 mg) oral capsule) 1 capsule Oral Daily 10/17 in am Unchanged Lidocaine Thursday, Thursday and Thursday NOT ON PAPER CHART ?? resume as previously prescribed Unchanged Multivitamin (Vitamin B Complex oral tablet, extended release) 1 tab(s) Oral Daily 10/17 in am Unchanged nalOXONE (Narcan 4 mg/ 0.1 mL nasal spray) 4 Milligram Naris, Left Once as needed for as needed as needed Unchanged nalOXONE (Narcan Inj) 1 Milliliter Intramuscular Once as needed for as needed as needed Unchanged Pantoprazole (pantoprazole 40 mg oral delayed release tablet) 1 tab(s) Oral Twice a day 10/16 in pm Unchanged Sucralfate (sucralfate 1 gm oral tablet) 1 tab(s) Oral Twice a day before meals ?? 10/16 in pm Test Results Below is a partial list of the most recent Laboratory test results done prior to this discharge. You may have had other tests and procedures not included in this list. Please discuss all test resultswith your provider. RBC Available - PT (10/14/2022) RBC Unit ID - [id number] (10/14/2022) BUN (10/16/2022) ???BUN - 47 mg/dL BUN POC CARTRIDGE (10/14/2022) ???BUN (POC) POC Cartridge - 41 mg/dL CALCIUM IONIZED POC CART (10/14/2022) ???Ionized Calcium (POC) POC Cartridge - 1.10 mmol/L Calcium Level (10/14/2022) ???Calcium - 8.9 mg/dL CBC w/ Differential (10/15/2022) ???WBC - 3.4 k/mm3???RBC - 2.91 m/mm3???Hgb - 8.6 Gm/dL???Hct - 27.0 %???MCV - 92.8 femtoliters???MCH - 29.6 pg???MCHC - 31.9 g/dL???Platelet Count - 55 k/mm3???RDW-SD - 58.2 femtoliters???MPV - NOT MEASURED???Nucleated RBC (Automated) - 0.0 #/100 WBC'S???Abs. NRBC - 0.0 k/mm3???Abs. Neut - 2.5 k/mm 3???Abs. Lymph - 0.5 k/mm3???Abs. Wilkes - 0.3 k/mm3???Abs. Eo - 0.1 k/mm3???Abs. Baso - 0.0 k/mm3???Neut % - 72.2 %???Lymph % - 15.6 %???Wilkes % - 8.6 %???Eos % - 2.7 %???Baso % - 0.6 %???Imm Gran - 0.3 %???Abs. Imm Gran - 0.0 k/mm3 CHLORIDE POC CARTRIDGE (10/14/2022) ???Chloride (POC) POC Cartridge - 100 mmol/L COVID-19, RSV, and Flu A/B, Rapid PCR (10/14/2022) ???Influenza A PCR - NEGATIVE???Influenza B PCR - NEGATIVE???RSV PCR - NEGATIVE???COVID-19 PCR Specimen Source - NASAL???COVID-19 PCR Result - NEGATIVE Creatinine (10/16/2022) ???Creatinine-Blood - 7.7 mg/dL???Estimated GFR Creatinine - 7 ML/MIN/1.73 M2 CREATININE POC CARTRIDGE (10/14/2022) ???Creatinine (POC) POC Cartridge - 8.2 mg/dL Electrolytes (10/16/2022) ???Sodium - 135 mmol/L???Potassium - 4.5 mmol/L???Chloride - 94 mmol/L???Bicarbonate Level - 28 mmol/L???Anion Gap - 13 Glucose Level (10/16/2022) ???Glucose Level - 95 mg/dL GLUCOSE POC (10/15/2022) ???Glucose, POC - 86 mg/dL GLUCOSE POC CARTRIDGE (10/14/2022) ???Glucose (POC) POC Cartridge - 106 HEMATOCRIT POC CARTRIDGE (10/14/2022) ???Hematocrit (POC) POC Cartridge - 20 % HEMOGLOBIN POC CARTRIDGE (10/14/2022) ???Hemoglobin (POC) POC Cartridge - 6.8 Gm/dL Hgb + Hct (10/16/2022) ???Hgb - 8.9 Gm/dL???Hct - 27.1 % High??Sensitivity??Troponin T (10/14/2022) ???High Sensitivity Troponin (HSTnT) - 106 ng/L INR (10/14/2022) ???INR - 1.2???Protime (PT) - 12.9 seconds POTASSIUM POC CARTRIDGE (10/14/2022) ???Potassium (POC) POC Cartridge - 4.3 mmol/L ProBNP (10/14/2022) ???Nt-Probnp - 34109 pg/mL SODIUM POC CARTRIDGE (10/14/2022) ???Sodium (POC) POC Cartridge - 138 mmol/L Type and Screen (10/14/2022) ???Blood Type - O Positive???Antibody Screen - [...] Educational Leaflet Providered with your Discharge Instructions. Discharge Instructions for Malignant Hypertension (Hypertensive Emergency or Urgency)?? Valuables and Belongings I fully understand and agree that [facility] accepts no responsibility for all my [...] to send valuables and belongings home. ?? No Valuables/Belongings: No valuables/belongings present Review of Valuable and Belonging List: With patient, With witness Date for Pt to Sign Valuables/Belongings: 10/15/22 18:19:00 ?? Other Discharge Information ? Case Management Discharge Plan?? Discharge Plan?? Discharge Agency Information?? Discharge Level of Care at Discharge: halfway facility Name of Agency #1: [facility] Discharge Transportation Arranged: [facility] [phone] Agency Drag Out Worker #1: intake Mode of Transportation Arranged: Ambulance Service Categories #1: Prison Discharge Arranged Transport Date/Time: 10/16/22 16:30:00 Name of Person Notified of Transfer: Patient Discharge Nursing Homes/Rehab Facilities: [facility] ? Pulmonary Rehab Status?? Pulmonary Rehab Discharge Status?? CPAP/BiPAP Mask Type: Full CPAP/BiPAP Mask Size: Medium Respiratory Rate:??8 br/min??Low ? Common Emergency Awareness Tips IS IT [...] are strongly encouraged to quit. Please call [facility] at [phone] or [phone] ([phone]) or log in to [email or web address] for referrals to smoking cessation programs. ?? The National Suicide Prevention Hotline is available 20/04 if you or someone you know needs to find a reason to keep living. By calling 8-972-095-AYLIEN (2553) you'll be connected to a skilled, trained counselor at a crisis center in your area. INPATIENT DISCHARGE INSTRUCTIONS SIGNATURE PAGE SARWAT SMALL Location:[facility] Registration Date and Time:10/14/2022 06:43 EST Primary Care Physician: Caty ROJAS [facility], I SARWAT SMALL, have received the above patient education materials/instructions and have verbalized understanding. If ambulance or transport services are being used I further acknowledge being given a choice of service. ?? If you need to contact me, please call me at this number: . Patient/Fondant Puff Maker Name: Patient/Fondant Puff Maker Signature: Relationship to Patient: Witness Name/Signature: Date: * Tea Estrada MD Thi: PERFORM Event Display: Patient Education Leaflets Authored Date: [id number] Discharge Instructions for Malignant Hypertension (Hypertensive Emergency or Urgency) ?? [id number] Discharge Instructions for Malignant Hypertension (Hypertensive Emergency or Urgency) Malignant hypertension is very high blood pressure that causes harm to your organs. It is a medicalemergency. There are 2 types: Hypertensive emergency. This type is when you have dangerously??high blood pressure that is harmingorgans in your body. The top number of a blood pressure reading is usually higher than 180 and/or abottom number is higher than 120. You will also have symptoms that mean organs in your body are being harmed. This severe high blood pressure can cause damage to your heart, kidneys, brain, eyes, blood vessels, and other organs. See list of symptoms at the end of the page. Hypertensive urgency. This type is when your blood pressure is 180/120 but you aren't having any symptoms that mean your organs are being affected. This should still be addressed. You will need to take steps to lower your blood pressure. You will need to take blood pressure medicine and make changes to your diet and exercise habits. Below are instructions for how to manage your high blood pressure. Taking your blood pressure ??? Learn to take your own blood pressure. Be sure you know how to do itright. Your healthcare provider can give you detailed instructions. You can use an at-home blood pressure machine. Your provider can help you choose a reliable one. You must be sitting and resting for 5 minutes before taking your blood pressure. ??? Keep a record of your blood pressure results. Askyour provider which readings mean you need medical attention. ??? Have your blood pressure checked by your provider regularly. ??? Hypertensive emergency. If you have a blood pressure reading at homethat is higher than 180/120 and you have any symptoms shown at the end of this page, don't wait to s ee if it comes back down. Get emergency care right away. ??? Hypertensive urgency. If you have a blood pressure reading at home that is higher than?? 180/120 wait 5 minutes and take it again. If the second reading shows either number at or above the first reading and you are not having any symptomslisted at the end of the page, contact your provider right way. You may need to change your medicines. ?? Taking medicines ??? Take your blood pressure medicine exactly as your provider directed.? Learn the possible side effects of any prescribed medicines. ??? Tell your provider about any medicine you are taking. Some medicines can cause malignant hypertension. ??? Don't take??medicines that contain heart stimulants. This includes some nxqg-pom-sznzrec medicines. Check for warnings about high bl ood pressure on the label. ??? Check with your provider before taking a decongestant. Some can makehigh blood pressure worse. ?? Lifestyle changes ??? Limit your activity until your blood pressure is controlled. ??? Cut back on salt. o Limit canned, dried, packaged, and fast foods. o Don???t add salt to your food at the table.o Season foods with herbs instead of salt when you cook. o Request foods at restaurants with no added salt. ??? Keep a healthy weight. Get help to lose any extra pounds. ??? Start an exercise program. Ask your provider how to get started. You can benefit from simple activities like walking, gardening, swimming, or dancing. ??? Don???t drink more than 1 alcoholic drink a day for women and 2 a day for men. ??? Limit drinks that contain caffeine to 2 per day. This includes coffee, cola, and black or green tea. ??? Never take stimulants such as amphetamines or cocaine. These drugs can be deadly for someone with hypertension. ??? If you smoke, get help to quit. ??? Control your stress. Learn stress-management methods. ?? Follow-up care Make follow-up appointments to see your provider regularly. At these visits, your provider will: ??? Check your blood pressure ??? Give you dietary advice ??? Change your medicine as needed ?? Call 911 Call 911 if you have any of these: ??? Chest pain or shortness of breath ??? Seizure (with no history of seizure disorder) ??? Back pain (upper or lower back) ??? Moderate to severe headache ??? Weakness in the muscles of your face, arms, or legs ??? Trouble speaking ??? Extreme drowsiness or confusion ??? Restlessness, anxiety ??? Fainting or dizziness ??? Weakness, tingling, or numbness of yourface, arms, or legs ??? Change in vision (including blurred vision) ??? Nausea or vomiting ??? Blood pressure measured at home that is higher than 180/120 ?? Last Reviewed Date: 2022 ?? [id number] [employer]. All rights reserved. This information is not intended as a substitute for professional medical care. Always follow your healthcare professional's instructions. ?? * Event Display: Cardiac Rhythm Strips Authored Date: Hospital Progress note * Darline Pruitt RN: PERFORM, SIGN, VERIFY Event Display: Progress Note Hospital Authored Date: Patient: SARWAT SMALL Age: 67 years Sex: Male : 1955 Associated Diagnoses: None Author: Antwan Pruitt RNna Findings Evaluation Pt arrived from Dialysis at 1615. BP 191/77. Pt asymptomatic. Given his scheduled clonidine 0.2mg po. Rechecked BP 20 minutes later and it was 171/63. Dr. Tea Estrada made aware. Pt ok to be d/c to facility. Ambulance picked up patient. Left hand IV and left forearm powerglide IV removed with catheter tip intact. . * Maria Fernanda Sosa RN: PERFORM, SIGN, VERIFY Event Display: Progress Note Hospital Authored Date: Patient: SARWAT SMALL Age: 67 years Sex: Male : 1955 Associated Diagnoses: None Author: Maria Fernanda Sosa RN Findings Narrative/Incidental Patient tolerated 3 hours HD treatment; short treatment r/t discharge; CHEMICAL CELL CHANGER Tamara aware. Blood volume change neg 12.7%. BP 160/61 at end of treatment. pulled 1.5 kg. Right AVG positive bruit and thrill. No s/s infection. Patient stable at end of treatment. . * John ROJAS, Barrie: MODIFY John ROJAS, Barrie: MODIFY, SIGN John ROJAS, Barrie: SIGN, VERIFY, PERFORM Event Display: Progress Note Hospital Authored Date: Patient: SARWAT SMALL Age: 67 years Sex: Male : 1955 Associated Diagnoses: None Author: Tamara CHEMICAL CELL CHANGER, Mary Ellen Pt seen and examined; HD today. Review of Systems Review of Systems Constitutional: no complaints. Respiratory: dyspnea improved, no shortness of breath. Cardiovascular: no orthopnea, no peripheral edema. Gastrointestinal: no abdominal pain. Physical Examination Vitals Vitals : VITAL SIGNS SECTION 10/16/2022 2:00 EST Temperature 97.6 DegF Temperature Route Oral Pulse Rate 53 bpm L Systolic Blood Pressure 140 mm Hg H Diastolic Blood Pressure 54 mm Hg L Blood pressure sites Arm, left Oxygen Saturation 100 % Liters per Minute [...] who dialyzes on a T/T/S schedule at [facility] via a right upper extremity AV Fistula. He presented to [facility] [place] in the setting of acute onset of shortness of breath and was found to have elevated BP in the 200s systolic. He was placed on a Nitro drip and BiPAP for support with subjective improvement. Renal was consulted for urgent initiation of HD. 1. ESRD on HD - schedule: T/T/S at [facility] - access: RUE AV Fistula 2. Dyspnea - likely in the setting of volume overload, possibly flash pulmonary edema from HTN urgency - improved after HD 3. HTN Urgency - improved with initiation of home meds Plan - HD on T/T/S schedule while admitted - if BP remains elevated, can increase Nifedipine to 90mg BID or increase Clonidine to 0.3mg TID - remainder of care per primary team Case discussed with Dr. Lopez. Thank you for allowing us to participate in your patient's care. * Barrie Lopez MD: PERFORM Event Display: Progress Note Hospital Authored Date: RENAL ATTENDING ADDENDUM: I reviewed the patient's history, examined the patient, and confirmed theabove findings as documented by the advanced practitioner. I personally formulated the essential elements of the assessment and plan noted below. Portable XR Chest Views * BHSPowerscribe , FAINA S: TRANSCRIBE Godwin Blanco MD S: VERIFY Event Display: Result: Authored Date: Chest Portable HX OF PRESENT ILLNESS: BIBEMS from home c o SOB. Hemodialysis pt, pt reports compliance and due fortx today. Reports mild CP. Denies other complaints.; Reason: Shortness of Breath; Clinical Question(s): CHF / CHF COMPARISON: 07/20/2022 FINDINGS: LINES AND TUBES: None. LUNGS AND PLEURA: Pulmonary vascular congestion and diffuse interstitial prominence. Moderate right and small left pleural effusions. No pneumothorax. HEART, MEDIASTINUM AND JOSELYN: Mild prominence of the cardiac silhouette. Aorta is tortuous and partially calcified. BONES AND SOFT TISSUES: No acute abnormality. Status-post median sternotomy. Left axillary region stent. IMPRESSION: Interstitial pulmonary edema with right larger than left pleural effusions. WSN: [id number] Ordering Physician: Danna Agosto Dictated By: Godwin Blanco MD Dictated Date/Time: 10/14/22 8:19 am Reviewed By: Godwin Blanco MD Signed By: Godwin Blanco MD Signed Date/Time: 10/14/22 8:19 am Transcribed By: CSKarissa Transcribed Date/Time: 10/14/22 8:18 am Patient Care team information Care Team Personnel Name: Capri Bush RN Position: [facility] RN Member Role: Primary Care Nurse Name: Arlen Hale LPN Position: [facility] RN Member Role: Primary Care Nurse Name: Chloe Dhaliwal RN Position: [facility] RN Member Role: Primary Care Nurse Name: Laureano Crawley RN Position: [facility] RN Member Role: Primary Care Nurse Name: Mary Ellen Mcdonald NP Position: [facility] Associate Professional Member Role: [employer] Consult[employer] Provider Address: Address: [address] [place] [address] [address] [facility] [place] [address]- Name: Harsha Trent RN Position: [facility] RN Member Role: Primary Care Nurse Name: Yudelka Hawkins RN Position: [facility] RN Member Role: Primary Care Nurse Name: Wojciech Arriaga RN Position: [facility] RN Member Role: Primary Care Nurse Name: Jodi Parr RN Position: [facility] RN Member Role: Primary Care Nurse Name: Nasreen Gamble RN Position: [facility] OB RN Member Role: Primary Care Nurse Name: Marvin Dooley DO Position: [facility] Renal MD Member Role: Lifetime Consulting Physician Address: Address: [address] [facility] [address] [facility] [place] [address]- Name: Fermín Dominguez III, RN Position: [facility] RN Member Role: Primary Care Nurse Name: Gutierrez Anderson MD Position: [facility] Renal MD Member Role: Lifetime Consulting Physician Address: Address: [address] [place] [address] [address] [facility] [place] [address]- [place] Name: Pepe Brown RN Position: [facility] RN Member Role: Primary Care Nurse Name: Kassy Jo RN Position: [facility] RN Member Role: Primary Care Nurse Name: Patricia Chase RN Position: [facility] RN Member Role: Primary Care Nurse Name: Felisha Simon Position: [facility] RN Member Role: Primary Care Nurse Name: Martha Lawson RN Position: [facility] RN Member Role: Primary Care Nurse Name: Stephen Hua RN Position: [facility] RN Member Role: Primary Care Nurse Name: Geraldine Whyte RN Position: [facility] RN Member Role: Primary Care Nurse Name: Ashley Byrne MD Position: [facility] Outreach Member Role: PCP Address: Address: [address] [place] [address] [place] [address]- Name: Janna Valverde RN Position: [facility] RN Member Role: Primary Care Nurse Name: Kyle Matthews RN Position: [facility] RN Member Role: Primary Care Nurse Name: Judi Phillips RN, I Position: [facility] RN Member Role: Primary Care Nurse Name: Franky BLANKENSHIP Attending Position: [facility] ED Medicine MD Name: Danna Agosto NP Position: [facility] Associate Professional Member Role: ED Physician Assistant Professor Of Philosophy Address: Address: [address] [place] [address] [place] [address]- [place] Name: Bethany Avelar RN Position: [facility] ED RN W/OE and Tasks Member Role: Patient Care Provider Name: Ashly Choi Position: [facility] ED [facility] Member Role: Country Director Care Team Related Persons Name: DANNA ORR Address: [place] [address]
--- OUTSIDE RECORDS SUMMARY | 2023-08-23 07:14 | XMS_ITS | Continuity of Care Document ---
Author Name Unknown Organization [facility] ter Address [address] [place] [address]- Care Team Providers Care Package Sealer Name Role Phone Rasta Guerrero MD Primary Care Physician [phone] Encounter [id number] Date(s): 02/14/23 - 02/14/[address] [address]- Discharge Disposition: A-Transfer SNF Attending Physician: Sandro Hale DO Admitting Physician: Sandro Hale DO Referring Physician: Not on Staff, Referring MD Allergies, Adverse Reactions, Alerts Substance Reaction Severity Status lisinopril Active Immunizations Given and Recorded Vaccine Date Status Refusal Reason [id number] 12y+ bivalent booster vax 08/01/22 Recorded SARS-CoV-2 (COVID-19) mRNA-1273 vaccine 07/04/22 R ecorded SARS-CoV-2 (COVID-19) mRNA-1273 vaccine 11/13/20 R ecorded SARS-CoV-2 (COVID-19) mRNA-1273 vaccine 10/15/20 R ecorded SARS-CoV-2 mRNA ([id number]) vax 02/04/22 Recorded SARS-CoV-2 (COVID-19) mRNA BNT-162b2 [...] Exam Date Time Procedure Performing Provider Status 02/14/23 10:06 AM Chest Portable David , Patricia; Auth ( Verified) Notes: (Chest Portable) Reason For Exam: Shortness of Breath RESULT: Chest Portable Chest Portable Hx of Present Illness: had HD yesterday, started with having generaized body aches has had elevatedBP since dialysis. Reported as high as 220; Reason: Shortness of Breath; Clinical Question(s): CHF COMPARISON: Multiple priors dating back to 10/30/2022 FINDINGS: LINES AND TUBES: None. LUNGS AND PLEURA: There are patchy groundglass opacities in the left mid to lower lung. There is thickening/fluid of the minor fissure on the right. Near opacity at the right lung base likely represents subsegmental atelectasis. No pleural effusion. No pneumothorax. HEART, MEDIASTINUM AND JOSELYN: Heart is normal in size. Patient is status post median sternotomy and CABG. Normal mediastinal and hilar contour. BONES AND SOFT TISSUES: No acute abnormality. Vascular stent is present in the left axillary region. IMPRESSION: Left mid to lower lung groundglass opacity could represent pneumonia in the appropriate clinical setting versus less likely asymmetric edema. An actionable message (Ponce) has been communicated via the [employer] system on 02/14/2023 10:13 AM, Message ID [id number]. WSN: [id number] Ordering Physician: Ja Sexton Dictated By: Hayde Cancino MD Dictated Date/Time: 02/14/23 10:13 a Reviewed By: Hayde Cancino MD Signed By: Hayde Cancino MD Signed Date/Time: 02/14/23 10:13 am Transcribed By: WILFREDO Transcribed Date/Time: 02/14/23 10:11 am Vital Signs Most recent to oldest [Reference Range]: 1 2 Height 168 cm (02/14/23 8:06 AM) Weight 67.5 kg (02/14/23 8:06 AM) Oxygen Saturation [94-100 %] 100 % (02/14/23 7:55 AM) Pulse Rate [55-90 bpm] 72 bpm (02/14/23 7:55 AM) Blood Pressure [90-138/55-84 mm Hg] 168/ 88mm Hg *H* (02/14/23 2:25 PM) 160/66mm Hg *H* (02/14/23 7:55 AM) Respiratory Rate [16-30 br/min] 16 br/mi n (02/14/23 7:55 AM) Temperature [96.8-100.4 DegF] 98.0 DegF (02/14/23 2:25 PM) 98.0 DegF (02/14/23 7:55 AM) Liters per Minute 3 L/min (02/14/23 7:55 AM) 3 L/min (02/14/23 7:52 AM) Mode of Delivery (Oxygen) Nasal cannula (02/14/23 7:55 AM) Nasal cannula (02/14/23 7:52 AM) Blood pressure sites Arm, left (02/14/23 7:55 AM) Temperature Route Oral (02/14/23 2:25 PM) Oral (02/14/23 7:55 AM) Dry Weight 67.5 kg (02/14/23 8:06 AM) Weight Obtained Via Patient/family state d (02/14/23 8:06 AM) Dry Weight Obtained Via Patient/family s tated (02/14/23 8:06 AM) Social History Social History Type Response Smoking Status Former smoker, quit more than 30 days ago; Other: Quit 20 years ago, smoked for 30 years 1.5 ppd; entered on: 06/30/22 Sex EKG study * Event Display: ECG 12-Lead Authored Date: Please click on pdf link to open report * Event Display: ECG 12-Lead Authored Date: Ventricular Rate: 70 BPM Atrial Rate: 70 BPM P-R Interval: 176 ms QRS Duration: 80 ms Q-T Interval: 410 ms QTC Calculation(Bazett): 442 ms P Yoder: 25 degrees R Yoder: -22 degrees T Yoder: -88 degrees Normal sinus rhythm Septal infarct (cited on or before 05-JAN-2023) T wave abnormality, consider inferolateral ischemia Abnormal ECG When compared with ECG of 06-JAN-2023 03:39, Serial changes of Septal infarct Present Confirmed by HARSHA SHIPLEY MD ([id number]) on 02/14/2023 8:54:34 AM [place]: HARSHA SHIPLEY MD Note * Ja Sexton DO: PERFORM Event Display: Patient Education Leaflets Authored Date: Uncontrolled High Blood Pressure (Established) ?? [id number] Uncontrolled High Blood Pressure (Established) Your blood pressure was unusually high today. Your blood pressure may be high for several reasons. For example, this can occur if you???ve missed doses of your blood pressure medicine. Or it can happen if you are taking other medicines such as some asthma inhalers, decongestants, diet pills, and illegal drugs like cocaine and amphetamine. Other causes of high blood pressure include: ??? Weight gain ??? Too much salt in your diet ??? Smoking ??? Caffeine ??? Lack of exercise ??? Intense pain ??? Becoming upset???this means you feel fear, anger, or another strong emotion Blood pressure measurements are given as two numbers. Systolic blood pressure is the upper number. This is the pressure when the heart contracts. Diastolic blood pressure is the lower number. This isthe pressure when the heart relaxes between beats. You will see your blood pressure readings written together. For example, a person with a systolic pressure of 118 and a diastolic pressure of 78 will have 118/78 written in the medical record. To be diagnosed with high blood pressure, your numbers must be higher than the normal range when tested over a period of time. Blood pressure is categorized as normal, elevated, or stage 1 or stage 2 high blood pressure: ??? Normal blood pressure is systolic of less than 120 and diastolic of less than 80 (120/80) ??? Elevated blood pressure is systolic of 120 to 129 and diastolic less than 80 ??? Stage 1 high blood pressure is systolic of 130 to 139 or diastolic between 80 to 89 ??? Stage 2 high blood pressure is when systolic is 140 or higher or the diastolic is 90 or higher Uncontrolled high blood pressure can cause serious health problems. It raises your risk for heart attack, stroke, as well as both kidney and heart failure. But you can do many things to manage your blood pressure. In general, if you have high blood pressure, keeping your blood pressure below 130/80mmHg may help prevent these problems. Your healthcare provider may prescribe medicine to help control blood pressure if lifestyle changes are not enough. Home care It???s important to take steps to lower your blood pressure. If you are taking blood pressure medicine, the guidelines below may help you need less or no medicines in the future. ??? Start a weight-loss program if you are overweight. ??? Cut back on the amount of salt in your diet: o Don't have high-salt foods such as olives, pickles, smoked meats, canned soups, deli meats, or salted potato chips. o Don???t add salt to your food at the table. o Use only small amounts of salt when cooking. ??? Start an exercise program. Talk with your healthcare provider about what exercise program is best for you. It doesn???t have to be difficult. Even brisk walking for 20 minutes??3 times a week is a good form of exercise. ??? Don't use medicines that stimulate the heart. This includes many nsbh-nqb-rczimoz cold and sinus decongestant pills and sprays, as well as diet pills. Checkthe warnings about high blood pressure on the label. Before purchasing any jenb-fcy-xupzxpo medicines or supplements, always ask the pharmacist about the product's potential interaction with your high blood pressure and your medicines. ??? Stimulants such as amphetamine or cocaine could be lethal for someone with high blood pressure, as well as those on certain blood pressure medicines. Never take these. ??? Limit how much caffeine you drink. Consider switching to noncaffeinated beverages. ??? Stop smoking. If you are a long-time smoker, this can be hard. Enroll in a stop-smoking program to ma ke it more likely that you will succeed. Talk with your provider about ways to quit. ??? Learn how to handle stress better. This is an important part of any program to lower blood pressure. Learn ways to relax. These include meditation, yoga, and biofeedback. ??? If medicines were prescribed, take them exactly as directed. Missing doses may cause your blood pressure to get out of control. Don't stop taking your medicines, even if you feel better or you feel like you don't need them anymore. Talk with your healthcare provider. ??? If you miss a dose or doses of your medicines, check with your healthcare provider or pharmacist about what to do. ??? Consider buying an automatic blood pressure m achine. Your provider may advise a certain type. These are available at most pharmacies. It's idealto measure your blood pressure twice a day, once in the morning, and once in the late afternoon. Try to be consistent. Check your blood pressure around the same time each day for a good comparison. Keep a written record of your home blood pressure readings and take the record to your medical appointments. Here are some other guidelines on home blood pressure monitoring from the [employer]. ??? Don't smoke or drink coffee for 30 minutes before measuring your blood pressure. ??? Go to the bathroom before the test. ??? Relax for 5 minutes before taking the measurement. ??? Sit correctly. Be sure your back is supported. Don't sit on a couch or soft chair. Uncross your feet and place them flat on the floor. Place your arm on a solid, flat surface like a table with the upper arm at heart level. Make certain the middle of the cuff is directly above the bend of the elbow. Check the monitor's instruction manual for an illustration. ??? Take multiple readings. When you measure, take 2 or 3 readings 1 minute apart and record all of the results. ??? Take your blood pressure at the sametime every day, or as your healthcare provider recommends. ??? Record the date, time, and blood pressure reading. ??? Take the record with you to your next appointment. If your blood pressure monitorhas a built-in memory, simply take the monitor with you to your next appointment. ??? Call your provider if you have several high readings. Don't be frightened by a single high reading, but if you get several high readings, check in with your healthcare provider. ??? Note: When blood pressure reaches a systolic (top number) of 180 or higher or a diastolic (bottom number) of 110 or higher, you need emergency medical treatment. Call your healthcare provider right away. ?? Follow-up care Regular visits to your own healthcare provider for blood pressure and medicine checks are an important part of your care. Make a follow-up appointment as directed. Bring the record of your home bloodpressure readings to the appointment. ?? When to seek medical advice ?? Call your healthcare provider right away if any of these occur: ??? Blood pressure reaches a systolic (top number) of 180 or higher or diastolic (bottom number) of110 or higher??? emergency medical treatment is required ??? Throbbing or rushing sound in the ears??? Nosebleed that comes back or doesn't go away ??? Dizziness or dizziness with spinning sensation(vertigo) Call 911 Call 911 if any of these occur: ??? Chest, arm, shoulder, neck, or upper back pain ??? Shortness ofbreath ??? Severe headache ??? Extreme drowsiness, confusion, or fainting ??? Weakness, tingling, or numbness of your face, arms, or legs (especially on one side of the body) ??? Trouble speaking or seeing? Last Reviewed Date: 2022 ?? 4501-7081 [employer]. All rights reserved. This information is not intended as a substitute for professional medical care. Always follow your healthcare professional's instructions. ?? Portable XR Chest Views * BHSPowerscribe , CIS S: TRANSCRIBE Hayde Cancino MD: VERIFY Event Display: Result: Authored Date: [id number] Chest Portable Hx of Present Illness: had HD yesterday, started with having generaized body aches has had elevatedBP since dialysis. Reported as high as 220; Reason: Shortness of Breath; Clinical Question(s): CHF COMPARISON: Multiple priors dating back to 10/30/2022 FINDINGS: LINES AND TUBES: None. LUNGS AND PLEURA: There are patchy groundglass opacities in the left mid to lower lung. There is thickening/fluid of the minor fissure on the right. Near opacity at the right lung base likely represents subsegmental atelectasis. No pleural effusion. No pneumothorax. HEART, MEDIASTINUM AND JOSELYN: Heart is normal in size. Patient is status post median sternotomy and CABG. Normal mediastinal and hilar contour. BONES AND SOFT TISSUES: No acute abnormality. Vascular stent is present in the left axillary region. IMPRESSION: Left mid to lower lung groundglass opacity could represent pneumonia in the appropriate clinical setting versus less likely asymmetric edema. An actionable message (Ponce) has been communicated via the [employer] system on 02/14/2023 10:13 AM, Message ID [id number]. WSN: [id number] Ordering Physician: Ja Sextno Dictated By: Hayde Cancino MD Dictated Date/Time: 02/14/23 10:13 a Reviewed By: Hayde Cancino MD Signed By: Hayde Cancino MD Signed Date/Time: 02/14/23 10:13 am Transcribed By: WILFREDO Transcribed Date/Time: 02/14/23 10:11 am Patient Care team information Care Team Personnel Name: Capri Bush RN Position: [facility] RN Member Role: Primary Care Nurse Name: Arnold Canales RN Position: S RN Member Role: Primary Care Nurse Name: Linda La RN Position: [facility] Outreach Member Role: Primary Care Nurse Name: Arlen Hale LPN Position: [facility] RN Member Role: Primary Care Nurse Name: Chloe Dhaliwal RN Position: [facility] RN Member Role: Primary Care Nurse Name: Laureano Crawley RN Position: [facility] RN Member Role: Primary Care Nurse Name: Mary Ellen Mcdonald NP Position: [facility] Associate Professional Member Role: Lifetime Consulting Provider Address: Address: [address] [place] [address] [address] [facility] [place] [address]- Name: Barrie Lopez MD Position: [facility] Renal MD Member Role: Lifetime Consulting Physician Address: Address: [address] [place] [address] [address] [facility] [place] [address]- Name: Harsha Trent RN Position: [facility] RN Member Role: Primary Care Nurse Name: Wojciech Arriaga RN Position: [facility] RN Member Role: Primary Care Nurse Name: Jodi Parr RN Position: [facility] RN Member Role: Primary Care Nurse Name: Nasreen Gamble RN Position: [facility] OB RN Member Role: Primary Care Nurse Name: Marvin Dooley DO Position: [facility] Renal MD Member Role: Lifetime Consulting Physician Address: Address: [address] [place] [address] [address] [facility] [place] [address]- Name: Fermín Dominguez III, RN Position: [facility] RN Member Role: Primary Care Nurse Name: Rut Tucker Position: [facility] RN Member Role: Primary Care Nurse Name: Gutierrez Anderson MD Position: [facility] Renal MD Member Role: Lifetime Consulting Physician Address: Address: [address] [place] [address] [address] [facility] [place] [address]- [place] Name: Rasta Guerrero MD Position: [facility] Outreach Member Role: PCP Address: Address: [address] [place] [address]- [place] Name: Leeann Brown RN Position: [facility] RN Member Role: Primary Care Nurse Name: Pepe Brown RN Position: [facility] RN Member Role: Primary Care Nurse Name: Kassy oJ RN Position: [facility] RN Member Role: Primary Care Nurse Name: Patricia Chase RN Position: [facility] RN Member Role: Primary Care Nurse Name: Martha Lawson RN Position: [facility] RN Member Role: Primary Care Nurse Name: Geraldine Whyte RN Position: [facility] RN Member Role: Primary Care Nurse Name: Kyle Matthews RN Position: [facility] RN Member Role: Primary Care Nurse Name: Rasta Silverio RN Position: [facility] RN Member Role: Primary Care Nurse Name: Judi Phillips RN, I Position: [facility] RN Member Role: Primary Care Nurse Name: Sandro Hale DO Position: [facility] ED Medicine MD Member Role: Admitting Physician Address: Address: [address] [place] [address]- [place] Name: Anita Mcdaniel RN Position: [facility] ED RN W/OE and Tasks Member Role: Patient Care Provider Name: Leonardo Leonard Position: [facility] ED [facility] Name: Ja Sexton DO Position: [facility] Resident Member Role: ED Resident Address: Address: [address] [place] [address]- Care Team Related Persons Name: DANNA ORR Address: [place] [address]
--- OUTSIDE RECORDS SUMMARY | 2023-08-23 07:14 | XMS_ITS | Continuity of Care Document ---
Author Name Unknown Organization [facility] Address [address] [place] [address]- Care Team Providers Care Water Sander Name Role Phone Rasta Guerrero MD [id number]): [facility] [address] [place] [address] Attending Physician: Admtr, Meño Admitting Physician: AdmtrMeño Referring Physician: Admtr, Ar8 Allergies, Adverse Reactions, Alerts Substance Reaction Severity Status lisinopril Active Immunizations Given and Recorded Vaccine Date Status Refusal Reason [id number] 12y+ bivalent booster vax 08/01/22 Recorded SARS-CoV-2 (COVID-19) mRNA-1273 vaccine 07/04/22 R ecorded SARS-CoV-2 (COVID-19) mRNA-1273 vaccine 11/13/20 R ecorded SARS-CoV-2 (COVID-19) mRNA-1273 vaccine 10/15/20 R ecorded SARS-CoV-2 mRNA ([id number]) vax 02/04/22 Recorded SARS-CoV-2 (COVID-19) mRNA BNT-162b2 [...] Team Personnel Name: Capri Bush RN Position: [facility] RN Member Role: Primary Care Nurse Name: Linda La RN Position: [facility] Outreach Member Role: Primary Care Nurse Name: Arlen Hale LPN Position: S RN Member Role: Primary Care Nurse Name: Chloe Dhaliwal RN Position: [facility] RN Member Role: Primary Care Nurse Name: Laureano Crawley RN Position: [facility] RN Member Role: Primary Care Nurse Name: Mary Ellen Mcdonald NP Position: [facility] Associate Professional Member Role: Lifetime Consulting Provider Address: Address: [address] [place] [address] [address] [facility] [place] [address]- Name: Barrie Lopez MD Position: [facility] Renal MD Member Role: Lifetime Consulting Physician Address: Address: [address] [place] [address] [address] [facility] [place] [address]- Name: Dread Trent RN Position: [facility] RN Member Role: Primary Care Nurse Name: Wojciech Arriaga RN Position: [facility] RN Member Role: Primary Care Nurse Name: Jodi Parr RN Position: [facility] RN Member Role: Primary Care Nurse Name: Nasreen Gamble RN Position: [facility] OB RN Member Role: Primary Care Nurse Name: Marvin Dooley DO Position: [facility] Renal MD Member Role: Lifetime Consulting Physician Address: Address: [address] [place] [address] [address] [facility] [place] [address]- Name: Fermín Dominguez III, RN Position: [facility] RN Member Role: Primary Care Nurse Name: Rut Tucker Position: [facility] RN Member Role: Primary Care Nurse Name: Gutierrez Anderson MD Position: [facility] Renal MD Member Role: Lifetime Consulting Physician Address: Address: [address] [facility] [address] [facility] [place] [address]- [place] Name: Rasta Guerrero MD Position: [facility] Outreach Member Role: PCP Address: Address: [address] [facility] [place] [address]- [place] Name: Leeann Brown RN Position: [facility] RN Member Role: Primary Care Nurse Name: Pepe Brown RN Position: [facility] RN Member Role: Primary Care Nurse Name: Kassy Jo RN Position: [facility] SN RN Member Role: Primary Care Nurse Name: Patricia Chase RN Position: [facility] RN Member Role: Primary Care Nurse Name: Felisha Lilly Position: [facility] [place] Member Role: Primary Care Nurse Name: Martha Lawson RN Position: [facility] RN Member Role: Primary Care Nurse Name: Geraldine Whyte RN Position: [facility] RN Member Role: Primary Care Nurse Name: Kyle Matthews RN Position: [facility] RN Member Role: Primary Care Nurse Name: Rasta Silverio RN Position: [facility] RN Member Role: Primary Care Nurse Name: Judi Phillips RN, I Position: [facility] RN Member Role: Primary Care Nurse Care Team Related Persons Name: DANNA ORR Address: [place] [address]
--- OUTSIDE RECORDS SUMMARY | 2023-08-23 07:14 | XMS_ITS | Continuity of Care Document ---
Author Name Unknown Organization [facility] ter Address [address] [place] [id number]- Care Team Providers Care Materials Inspector Name Role Phone Ashley Byrne MD Primary Care Physician [phone] [facility] Date(s): 11/25/22 - 11/27/[address] [address]- Encounter Diagnosis Anemia(Final) - 11/25/22 Hypokalemia(Final) - 11/25/22 Hypokalemia(Final) - 11/26/22 Discharge Disposition: A-Transfer SNF Attending Physician: Farzad Bautista MD Admitting Physician: Андрей ROJAS, Dread Gaxiola Referring Physician: Not on Staff, Referring MD Allergies, Adverse Reactions, Alerts Substance Reaction Severity Status lisinopril Active Immunizations Given and Recorded Vaccine Date Status Refusal Reason [id number] 12y+ bivalent booster vax 08/01/22 Recorded SARS-CoV-2 (COVID-19) mRNA-1273 vaccine 07/04/22 R ecorded SARS-CoV-2 (COVID-19) mRNA-1273 vaccine 11/13/20 R ecorded SARS-CoV-2 (COVID-19) mRNA-1273 vaccine 10/15/20 R ecorded SARS-CoV-2 mRNA ([id number]) vax 02/04/22 Recorded SARS-CoV-2 (COVID-19) mRNA BNT-162b2 vac 09/05/21 Recorded Medications acetaminophen 325 mg oral tablet 650 mg, 2, tablet, By Mouth, Every 6 hours, PRN, Maintenance, as needed for fever/pain, 05/09/22 18:36:00 EDT, Partial fill upon patient request i; Start Date: 05/09/22 Status: Ordered Acetaminophen Tablet 650 mg, Tablet, By Mouth, Every 4 hours, PRN for Pain , Mild, Temperature Greater than 100.5, Routine, 11/25/22 18:43:00 EST Start Date: 11/25/22 Stop Date: 11/28/22 Status: Discontinued atorvastatin 80 mg oral tablet 1 tablet [...] 25 mg, Tablet, By Mouth, Hold for: Hold for SBP < 90, DBP <60, HR< 50, 11/27/22 9:00:00 EST Start Date: 11/27/22 Stop Date: 11/27/22 Status: Completed carvedilol 25 mg oral tablet [...] oral capsule 100 mg, Capsule, By Mouth, 11/27/22 9:00:00 EST Start Date: 11/27/22 Stop Date: 11/27/22 Status: Completed gabapentin 100 mg oral capsule [...] mg, ER Tablet, By Mouth, Hold for: Hold for SBP < 90, DBP <60, 11/27/22 9:00:00 EST Start Date: 11/27/22 Stop Date: 11/27/22 Status: Completed NIFEdipine 60 mg oral tablet, [...] hours, PRN for Pain , Moderate, Routine, 11/25/22 20:45:00 EST Start Date: 11/25/22 Stop Date: 11/28/22 Status: Discontinued pantoprazole 40 mg oral delayed [...] for Microbiology Reports Name Date Blood Culture 11/25/22 Blood Culture #2 11/25/22 Microbiology Reports TEST:Blood Culture, Second Order STATUS:Unauthenticated BODY SITE: SOURCE:Blood COLLECTED DATE/TIME:11/25/22 3:51 PM Blood Culture, Second Order SPECIMEN DESCRIPTION : BLOOD L HAND SPECIAL REQUESTS : NONE CULTURE : NO GROWTH AFTER 48 HOURS REPORT STATUS : PRELIMINARY REPORT TEST:Blood Culture STATUS:Unauthenticated BODY SITE: SOURCE:Blood COLLECTED DATE/TIME:11/25/22 3:36 PM Blood Culture SPECIMEN DESCRIPTION : BLOOD L AC SPECIAL REQUESTS : NONE CULTURE : NO GROWTH AFTER 48 HOURS REPORT STATUS : PRELIMINARY REPORT Vital Signs Most recent to oldest [Reference Range]: 1 2 3 Weight 56.4 kg (11/25/22 10:21 PM) Oxygen Saturation [94-100 %] 100 % (11/27/22 5:00 AM) 99 % (11/26/22 8:47 PM) 100 % (11/26/22 8:00 AM) Pulse Rate [55-90 bpm] 60 bpm (11/27/22 9:53 AM) 60 bpm (11/27/22 5:00 AM) 81 bpm (11/26/22 8:47 PM) Blood Pressure [90-138/55-84 mm Hg] 146/48mm Hg *H* (11/27/22 9:53 AM) 146/48mm Hg *H* (11/27/22 9:53 AM) 150/52mm Hg *H* (11/27/22 5:00 AM) Respiratory Rate [16-30 br/min] 16 br/min (11/27/22 11:07 AM) 16 br/min (11/27/22 10:56 AM) 16 br/min (11/27/22 10:53 AM) Temperature [96.8-100.4 DegF] 97.3 DegF (11/27/22 5:00 AM) 97.8 DegF (11/26/22 8:47 PM) 97.3 DegF (11/26/22 8:00 AM) Liters per Minute 3 L/min (11/26/22 8:00 AM) 3 L/min (11/26/22 5:39 AM) 3 L/min (11/25/22 10:21 PM) Mode of Delivery (Oxygen) Room air (11/27/22 5:00 AM) Nasal cannula (11/26/22 8:00 AM) Nasal cannula (11/26/22 5:39 AM) Blood pressure sites Arm, right (11/27/22 5:00 AM) Arm, left (11/25/22 10:21 PM) Arm, left (11/25/22 3:07 PM) Temperature Route Oral (11/27/22 5:00 AM) Oral (11/26/22 8:47 PM) Oral (11/26/22 5:39 AM) Dry Weight 56.4 kg (11/25/22 10:21 PM) Weight Obtained Via Bed scale (11/25/22 10:21 PM) Dry Weight Obtained Via Bed scale (11/25/22 10:21 PM) Social History Social History Type Response Smoking Status Former smoker, quit more than 30 days ago; Other: Quit 20 years ago, smoked for 30 years 1.5 ppd; entered on: 06/30/22 Sex History and physical note * Charli Dutton MD: PERFORM Event Display: History and Physical Hospital Authored Date: Patient: ??CLINTON WHITE ? Age:??67 Years?Sex:??Male?:??1955?? Chief Complaint/Reason for Consultation Pt just had diaylsis, lab showed 6.4 hemoglobin. pt has been feeling weak today. [email or web address] History of Present Illness 67-year-old male with past medical history significant for end-stage renal disease, CAD status postCABG, peripheral arterial disease status post bilateral AKA, hypertension, hyperlipidemia, hypothyroidism, diabetes mellitus,??COPD on home O2 and chronic anemia secondary to chronic kidney disease +chronic liver cirrhosis + GAVE ?? 3 weeks ago, he was admitted to [facility] for symptomatic anemia.?? He was found to have a hemoglobin of 5 on admission.?? No active bleed on CTA abdomen/pelvis.?? Presumed secondary to upper GI bleeding from GAVE versus benign bleeding versus acute on chronic anemia of chronic disease.?? Colonoscopy wasattempted but with poor prep thus results were inconclusive.?? Patient underwent blood transfusion and started on iron supplementation on discharge. 1 week prior to admission, he has developed generalized weakness and exercise intolerance. On the day of admission, he was at his dialysis center.?? He was profoundly weak and thus he was sent to the emergency room. ?? ER course: Vital signs: Afebrile, bradycardic, hypertensive, nontachypneic, nonhypoxic Exam:Besides pallor, the rest of the exam is benign Patient refused a rectal exam ? Work-up: EKG: Sinus bradycardia T wave abnormality, consider inferolateral ischemia Abnormal ECG When compared with ECG of 30-OCT-2022 16:25, Aberrant conduction is no longer Present Minimal criteria for Anterior infarct are no longer Present Inverted T waves have replaced nonspecific T wave abnormality in Inferior leads T wave inversion more evident in Lateral leads ?? CBC: Positive pancytopenia.?? Hemoglobin/hematocrit 6.8/21.3 Chemistry: Mild hypokalemia, chronically elevated creatinine, metabolic alkalosis Lactate: Normal COVID-19: Negative ?? Interventions performed: 1 unit packed red blood cell transfusion Oxycodone 5 mg p.o. x1 ?? On my evaluation in the emergency room: Vital signs: Normal except for hypertension Patient feels generally weak He is still waiting for his blood transfusion He has no active??sites of bleeding Review of Systems Constitutional: No weight loss, fever, chills?? HEENT: No visual loss. No hearing loss, congestion, runny nose , sore throat. Skin: No rash ?? Cardiovascular: No chest discomfort. No palpitations. Respiratory: No shortness of breath, cough. Gastrointestinal: No nausea, vomiting or diarrhea. No abdominal pain or blood in stool. Genitourinary: No burning micturition. No urinary frequency or incontinence. Musculoskeletal: No muscle pain, back pain, joint pain or stiffness. Endocrine: No reports of sweating. No cold or heat intolerance. No polyuria or polydipsia. Hematologic: No bleeding or bruising. Immunologic/Allergic: No itchy eyes/Itchy nose/Sneezing/Watery eyes Lymphatics: No enlarged lymph nodes. Neurologic: No headache, unilateral weakness, numbness or tingling in the extremities. No change inbowel or bladder control. Psychiatric: No depression or anxiety. Objective Measurements?? Weight: 56.4 kg (11/25/22) Dry Weight: 56.4 kg (11/25/22) ? Vital Signs?? Temperature: 97.4 DegF (11/25/22 22:21:00) Temperature Route: Oral (11/25/22 15:07:00) Pulse Rate: 68 bpm (11/25/22 22:21:00) Respiratory Rate: 16 br/min (11/25/22 22:21:00) Systolic Blood Pressure:??192 mm Hg??High (11/25/22 22:21:00) Diastolic Blood Pressure: 71 mm Hg (11/25/22 22:21:00) Blood pressure sites: Arm, left (11/25/22 22:21:00) Mean Arterial Pressure: 111 mm Hg (11/25/22 22:21:00) Pulse Pressure: 121 mm Hg (11/25/22 22:21:00) Oxygen Saturation: 100 % (11/25/22 22:21:00) Liters per Minute: 3 L/min (11/25/22 22:21:00) Mode of Delivery (Oxygen): Nasal cannula (11/25/22 22:21:00) Early Warning Score: 8 (11/25/22 22:23:36) ? Physical Exam GENERAL: Chronically ill-appearing, no acute cardiorespiratory distress HEAD: Normocephalic, atraumatic. EYES: No conjunctival injection. No scleral icterus.?Pale??k conjunctiva EARS: No tenderness, no discharge. NOSE: No asymmetry. MOUTH AND THROAT: No oral thrush.?? Moist mucous membranes NECK: No JVP elevation, No masses. Range of motion full. HEART:?? slow?rate and regular rhythm, no murmurs, no clicks, no rubs , no gallops. CHEST: Symmetric with respirations. No accessory muscle use, No wheezes, crackles. ABDOMEN: Normoactive bowel sounds. No tenderness or guarding. No increase in liver or spleen size. No masses palpable. GENITOURINARY: No CV angle tenderness. No suprapubic tenderness. No Davey catheter in place.?? Rectal exam is deferred. MUSCULOSKELETAL: Bilateral BKA: Stumps pristine. ??Range of motion full in all extremities , no obvious deformity , no increased warmth , no effusion?? VASCULAR: Right AV fistula: Good thrill. ??All pulses brisk and equal, Capillary refill time < 2sec LYMPHATIC: No cervical, axillary or inguinal adenopathy. Skin: Dry and thin. No evidence of cellulitis, no other major skin lesions?? NEUROLOGIC: No deficit on gross motor and sensory exam Alert and oriented to person, place, time, and situation?? Psychiatric: No delusions, hallucinations, SI or HI Assessment/Plan Assessment:??67-year-old male with past medical history significant for end- stage renal disease, CAD status post CABG, peripheral arterial disease status post bilateral AKA, hypertension, hyperlipidemia, hypothyroidism,??diabetes mellitus,??COPD on home O2 and chronic anemia secondary to chronic kidney disease + chronic liver cirrhosis + GAVE.?Once again he presents with symptomatic anemia. ?? Acute on chronic anemia (D64.9):? Symptomatic anemia likely??multifactorial -Admitted to the Gen. medical floors -hold antiplatelets, anticoagulation including nsaids -Patient received blood transfusion - Surveillance CBC daily will be done - Will begin IV Protonix 40 mg??twice daily - Additional transfusion will be done based H & H -??Continue ferrous sulfate 325 mg daily -If hemoglobin??continues to decrease despite blood transfusion, consult??GI ?? Hypokalemia (E87.6):? Encourage p.o. intake Continue to follow electrolytes ?? ESRD on dialysis (N18.6):? Consult kidney care and transplant for hemodialysis needs Keep on a renal diet Continue multivitamins and supplements ?? Coronary artery disease (I25.10):? Peripheral vascular disease (I73.9):? Not on antiplatelets or anticoagulants due to high risk of GI bleeding ?? Hypertension (I10):? Continue carvedilol 25 mg twice daily Continue isosorbide mononitrate 60 mg daily Continue nifedipine 60 mg extended release 2 times a day Continue clonidine 0.2 mg twice daily All blood pressure medications with holding parameters ?? Hyperlipidemia (E78.5):? Continue atorvastatin ?? Hypothyroidism (E03.9):? Continue levothyroxine ?? Diabetes mellitus (E11.9):? POC glucose with meals and at bedtime Cover with insulin sliding scale Hypoglycemic protocol in place ?? COPD (chronic obstructive pulmonary disease) (J44.9):? Rescue beta agonist inhalers as needed Not on long-term meds Continue nocturnal and as needed O2 Supplementation ?? Chronic pain syndrome (G89.4):? Continue pain management (gabapentin + as needed oxycodone ) as being done in the outpatient Bowel regimen in place ?? VTE Prophylaxis:? Not on anticoagulation due to possible active bleeding Pneumoboots ?VTE Prophylaxis Assessment:??VTE Prophylaxis Ordered ?? Code Status:? Full code ?Order Code Status:??Code Status Ordered ?? Ongoing Medical Necessity:? Correction of anemia ?? Discharge Planning:? Anticipate at least 2 night hospital stay ?? The above document was completed by performing history, physical examination, reconciling multiple medications, review of laboratory and imaging All assessment and plan were discussed with the patient and requested feedback with attempts to maximize understanding for the care provided. This required approximately 70 minutes to complete.? Histories Allergies Allergies ?(Active and Proposed Allergies [...] Mouth?2 times a day?before meals ? Results ?? Test Name Test Result Date/TimeWBC 2.7 k/mm3 (Low) 11/25/2022 15:36 EST WBC 3.0 k/mm3 (Low) 11/03/2022 04:35 EST Hgb 6.8 Gm/dL (Low) 11/25/2022 15:36 EST Hgb 7.4 Gm/dL (Low) 11/05/2022 04:42 EST Hgb 6.7 Gm/dL (Low) 11/04/2022 04:55 EST Hgb 7.3 Gm/dL (Low) 11/03/2022 04:35 EST Hgb 6.9 Gm/dL (Low) 11/02/2022 16:53 EST Hct 21.3 % (Low) 11/25/2022 15:36 EST Hct 22.8 % (Low) 11/05/2022 04:42 EST Hct 20.2 % (Low) 11/04/2022 04:55 EST Hct 21.2 % (Low) 11/03/2022 04:35 EST Hct 21.1 % (Low) 11/02/2022 16:53 EST Platelet Count 69 k/mm3 (Low) 11/25/2022 15:36 EST Platelet Count 77 k/mm3 (Low) 11/03/2022 04:35 EST Sodium 140 mmol/L 11/25/2022 15:36 EST Potassium 3.3 mmol/L (Low) 11/25/2022 15:36 EST Chloride 99 mmol/L 11/25/2022 15:36 EST Bicarbonate Level 31 mmol/L (High) 11/25/2022 15:36 EST Anion Gap 10 11/25/2022 15:36 EST Glucose Level 128 mg/dL (High) 11/25/2022 15:36 EST BUN 13 mg/dL 11/25/2022 15:36 EST Creatinine-Blood 3.5 mg/dL (High) 11/25/2022 15:36 EST Estimated GFR Creatinine 19 ML/MIN/1.73 M2 11/25/2022 15:36 EST Calcium 8.7 mg/dL 11/25/2022 15:36 EST Lactate 1.1 mmol/L 11/25/2022 15:36 EST COVID-19 by RT-PCR NEGATIVE 11/25/2022 15:56 EST EKG study * Event Display: ECG 12-Lead Authored Date: Please click on pdf link to open report * Event Display: ECG 12-Lead Authored Date: Ventricular Rate: 53 BPM Atrial Rate: 53 BPM P-R Interval: 180 ms QRS Duration: 82 ms Q-T Interval: 460 ms QTC Calculation(Bazett): 431 ms P Belton: 3 degrees R Belton: -16 degrees T Belton: -76 degrees Sinus bradycardia T wave abnormality, consider inferolateral ischemia Abnormal ECG When compared with ECG of 30-OCT-2022 16:25, Aberrant conduction is no longer Present Minimal criteria for Anterior infarct are no longer Present Inverted T waves have replaced nonspecific T wave abnormality in Inferior leads T wave inversion more evident in Lateral leads Confirmed by VIOLETTA ROJAS, [facility] ([id number]) on 11/26/2022 2:27:31 PM [place] * Christine JAY, Alexa Trejo: PERFORM, SIGN, VERIFY Event Display: [facility] Authored Date: Patient: CLINTON WHITE Age: 67 years Sex: Male : 1955 Associated Diagnoses: None Author: Alexa King RN Findings Evaluation Pt received 35 min of HD via AVG. Pt refused to continue treatment with requested meds. notified. Stable upon transfer to floor. Discharge Information Case Management Discharge Plan : Case Management Discharge Plan Data 11/26/2022 7:49 EST Discharge Nursing Homes/Rehab Facilities [address] * Aisha ROJAS, Xena Aponte: MODIFY, PERFORM Event Display: [facility] Authored Date: Patient: ??CLINTON WHITE ? Age:??67 Years?Sex:??Male?:??1955?? Subjective No renal issues overnight. This morning, patient declined HD because he was not able to get IV Benedryl. He was able to get itlater however, so scheduled to return to get HD 3rd shift. He reports that he is feeling comfortable, no issues. ?? Review of Systems General:??No fevers or chills. Cardiovascular:??Denies any chest pain or palpitations. Pulmonary:??Denies any shortness of breath or cough. GI:??Denies any abdominal pain, nausea, vomiting, diarrhea or constipation. Objective Measurements?? Weight: 56.4 kg (11/25/22) Dry Weight: 56.4 kg (11/25/22) ? Vital Signs?? Temperature: 97.3 DegF (11/27/22 05:00:00) Temperature Route: Oral (11/27/22 05:00:00) Pulse Rate: 60 bpm (11/27/22 05:00:00) Respiratory Rate: 18 br/min (11/27/22 06:08:00) Systolic Blood Pressure:??150 mm Hg??High (11/27/22 05:00:00) Diastolic Blood Pressure:??52 mm Hg??Low (11/27/22 05:00:00) Blood pressure sites: Arm, right (11/27/22 05:00:00) Pulse Pressure: 44 mm Hg (11/26/22 20:47:00) Oxygen Saturation: 100 % (11/27/22 05:00:00) Mode of Delivery (Oxygen): Room air (11/27/22 05:00:00) Early Warning Score: 8 (11/27/22 06:09:34) ? Intake/Output? 11/25 18:13 11/27 07:00 11/26 07:00 11/25 07:00 11/24 07:00 ?? 11/27 08:23 11/27 08:23 11/27 06:59 11/26 06:59 11/25 06:59 Intake ?708 ?0 ?590 ?118 ?0 Output ?0 ?0 ?0 ?0 ?0 Net Total ?708 ?0 ?590 ?118 ?0 ? Physical Exam Constitutional: Alert, in no distress. Mental Status: Oriented to person, place and time. Ear, Nose and Throat: Oropharynx clear, mucous membranes moist. Neck: Supple, Full range of motion. Respiratory: Breathing comfortably on home O2. Clear to auscultation. No wheezing, rales or rhonchi. Cardiovascular: RRR Gastrointestinal: Abdomen soft, non-tender, non-distended. Neurologic: No focal neurological deficits. Moves all extremities spontaneously. Musculoskeletal: No cyanosis or clubbing.??Bilateral AKA.??Normal range of motion. _ Inpatient Medications Medications (29) Active SCHEDULED: (17) Atorvastatin 80 mg Tablet [...] mg, By Mouth, 3 times a day Docusate Sodium 100 mg Capsule (docusate sodium 100 mg oral capsule) ??100 mg 1 capsule, By Mouth, 2 times a day Ferrous Sulfate 325 mg EC Tablet (ferrous sulfate 325 mg oral enteric coated tablet) ??325 mg, By Mouth, Daily Folic Acid/Vit B Comp/C Capsule (Nephrocap Capsule) ??1 capsule, By Mouth, Daily Gabapentin 100 mg Capsule (gabapentin 100 mg oral capsule) ??100 mg, By Mouth, Daily Insulin Lispro 100 units/mL Inj (3mL) (Insulin LISPRO Scale) ??2-8 units, Subcutaneous Injection, 3times a day before meals Isosorbide Mononitrate 30 [...] 2 times a day Pantoprazole 40 mg Inj (Protonix Inj) ??40 mg, IV Push Slowly, 2 times a day Polyethylene Glycol 17 Gm Powder (Polyethylene Glycol Powder) ??17 Gm 1 pack/packet, By Mouth, Daily Sucralfate 1 Gm Tablet (sucralfate 1 gm oral tablet) ??1 Gm, By Mouth, 3 times a day after meals and bedtime Vitamin D 50,000 International Unit Capsule (ergocalciferol 05283 iu oral capsule) ??50,000 units, By Mouth, Every 30 days CONTINUOUS: (0) PRN: (12) Acetaminophen 325 mg Tablet (Acetaminophen Tablet) ??650 mg, By Mouth, Every 4 hours Bisacodyl 10 mg Suppository (Bisacodyl Supp) ??10 mg 1 supp, Rectally, Daily Dextrose Inj Syringe (Dextrose 50% Inj Syringe (25Gm)) ??12.5 Gm, IV Push Slowly, Every 20 minutes Dextrose Inj Syringe (Dextrose 50% Inj Syringe (25Gm)) ??25 Gm, IV Push Slowly, Every 15 minutes diphenhydrAMINE 25 mg Tablet (Benadryl Tablet) ??25 mg, By Mouth, Every 4 hours Glucose 40% Gel (15 Gm) (Glucose Gel) ??15 Gm, By Mouth, Every 20 minutes Glucose 40% Gel (15 Gm) (Glucose Gel) ??30 Gm, By Mouth, Every 20 minutes Melatonin 3 mg Tablet (Melatonin Tablet) ??3 mg, By Mouth, Daily at bedtime NaCl 0.9% Flush 3ml (NaCL 0.9% Flush) ??3 mL, IV Push, Every 8 hours Ondansetron 2mg/mL Inj (2mL Vial) (Ondansetron Inj) ??4 mg, IV Push, Every 6 hours OxyCODONE 5 mg IR Tablet (oxyCODONE 5 mg oral tablet) ??5 mg, By Mouth, Every 6 hours Senna 8.6 mg / Docusate 50 mg tablet (Docusate/Senna Tablet) ??2 tablet, By Mouth, 2 times a day ? Results Recent Labs BLOOD COUNT & DIFF WBC 3.3 k/mm3 (Low)?? 11/26/2022 00:55 RBC 2.37 m/mm3 (Low)?? 11/26/2022 00:55 Hgb 8.1 Gm/dL (Low)?? 11/27/2022 00:17 Hct 26.1 % (Low)?? 11/27/2022 00:17 MCV 97.0 femtoliters (High)?? 11/26/2022 00:55 MCH 30.8 pg ()?? 11/26/2022 00:55 MCHC 31.7 g/dL (Low)?? 11/26/2022 00:55 Platelet Count 72 k/mm3 (Low)?? 11/26/2022 00:55 RDW-SD 71.4 femtoliters (High)?? 11/26/2022 00:55 MPV 13.2 femtoliters (High)?? 11/26/2022 00:55 Nucleated RBC (Automated) 0.0 #/100 WBC'S ()?? 11/26/2022 00:55 Abs. NRBC 0.0 k/mm3 ()?? 11/26/2022 00:55 ?? CARDIAC High Sensitivity Troponin (HSTnT) 121 ng/L (Critical)?? 11/26/2022 07:49 ?? CHEM GENERAL Sodium 141 mmol/L ()?? 11/26/2022 00:55 Potassium 4.0 mmol/L ()?? 11/26/2022 00:55 Chloride 100 mmol/L ()?? 11/26/2022 00:55 Bicarbonate Level 28 mmol/L ()?? 11/26/2022 00:55 Anion Gap 13 ()?? 11/26/2022 00:55 Glucose, POC 124 mg/dL (High)?? 11/26/2022 17:17 BUN 19 mg/dL ()?? 11/26/2022 00:55 Creatinine-Blood 4.5 mg/dL (High)?? 11/26/2022 00:55 Estimated GFR Creatinine 13 ML/MIN/1.73 M2 ()?? 11/26/2022 00:55 Phosphorus 2.7 mg/dL ()?? 11/26/2022 00:55 Magnesium 1.8 mg/dL ()?? 11/26/2022 00:55 LDH 338 units/L (High)?? 11/26/2022 08:49 Iron Level 95 mcg/dL ()?? 11/26/2022 08:49 Iron Binding Capacity, Unsaturated 90 mcg/dL (Low)?? 11/26/2022 08:49 Iron Binding Capacity, Estimated Total 185 mcg/dL ()?? 11/26/2022 08:49 % Iron Saturation 51 % ()?? 11/26/2022 08:49 Ferritin Level 1101 ng/mL (High)?? 11/26/2022 08:49 ?? COAG INR 1.2 (High)?? 11/26/2022 08:49 Protime (PT) 13.0 seconds (High)?? 11/26/2022 08:49 Fibrinogen 327 mg/dL ()?? 11/26/2022 08:49 ?? IMMUNOLOGY GENERAL Haptoglobin <10 mg/dL (Low)?? 11/26/2022 08:49 ? 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 Labs are stable and the patient does not show any clinical signs of volume overload at this time. ?? ESRD??secondary to??diabetic nephropathy??(on HD??TThS) Electrolytes stable and clinical??appearance??not suggestive of??volume overload ?? Recommendations: -Continue TThS schedule -Transfuse PRBCs for Hgb < 7 -Continue iron supplementation ?? Patient discussed with Dr. Cotto, Attending Physician, addendum to follow ?? Xena Leonard MD Med-Peds PGY-3 Pager [phone] or Cortext ?? * Rudy Cotto MD I: PERFORM Event Display: Progress Note Hospital Authored Date: ? I reviewed the patient's history, examined the patient, and confirmed the above findings as documented by the fellow/resident. I personally formulated the essential elements of the assessment and plan noted above. Dr. Cotto?? * Jocelyn ROJAS, Ileana: PERFORM Event Display: Progress Note Hospital Authored Date: Patient: ??CLINTON WHITE ? Age:??67 Years?Sex:??Male?:??1955?? Subjective Patient seen today. He has multiple hospitalization??with anemia requiring PRBC transfusion. ?? Right now he declines any chest pain, shortness of breath, nausea, vomiting, abdominal pain. Review of Systems ROS stated above Objective Measurements?? Weight: 56.4 kg (11/25/22) Dry Weight: 56.4 kg (11/25/22) ? Vital Signs?? Temperature: 97.3 DegF (11/26/22 08:00:00) Temperature Route: Oral (11/26/22 05:39:00) Pulse Rate: 64 bpm (11/26/22 09:19:00) Respiratory Rate: 16 br/min (11/26/22 10:45:00) Systolic Blood Pressure:??194 mm Hg??High (11/26/22 09:19:00) Systolic Blood Pressure:??194 mm Hg??High (11/26/22 09:19:00) Diastolic Blood Pressure: 76 mm Hg (11/26/22 09:19:00) Diastolic Blood Pressure: 76 mm Hg (11/26/22 09:19:00) Blood pressure sites: Arm, left (11/25/22 22:21:00) Mean Arterial Pressure: 102 mm Hg (11/26/22 05:39:00) Pulse Pressure: 118 mm Hg (11/26/22 05:39:00) Oxygen Saturation: 100 % (11/26/22 08:00:00) Liters per Minute: 3 L/min (11/26/22 08:00:00) Mode of Delivery (Oxygen): Nasal cannula (11/26/22 08:00:00) Early Warning Score: 8 (11/26/22 10:48:40) ? Intake/Output? 11/25 18:13 11/26 07:00 11/25 07:00 11/24 07:00 11/23 07:00 ?? 11/26 11:51 11/26 11:51 11/26 06:59 11/25 06:59 11/24 06:59 Intake ?436 ?318 ?118 ?0 ?0 Output ?0 ?0 ?0 ?0 ?0 Net Total ?436 ?318 ?118 ?0 ?0 ? Mobility & Ambulation Level Mobility & Ambulation Level?? No qualifying data available. ? Physical Exam GENERAL: Chronically ill-appearing, no acute cardiorespiratory distress HEAD: Normocephalic, atraumatic.. HEART:?? normal S1 S2, no murmurs, no clicks, no rubs , no gallops. CHEST: Symmetric with respirations. No accessory muscle use, No wheezes, crackles. ABDOMEN: Normoactive bowel sounds. No tenderness or guarding. No increase in liver or spleen size. No masses palpable. _ Inpatient Medications Medications (28) Active SCHEDULED: (17) Atorvastatin 80 mg Tablet [...] mg, By Mouth, 3 times a day Docusate Sodium 100 mg Capsule (docusate sodium 100 mg oral capsule) ??100 mg 1 capsule, By Mouth, 2 times a day Ferrous Sulfate 325 mg EC Tablet (ferrous sulfate 325 mg oral enteric coated tablet) ??325 mg, By Mouth, Daily Folic Acid/Vit B Comp/C Capsule (Nephrocap Capsule) ??1 capsule, By Mouth, Daily Gabapentin 100 mg Capsule (gabapentin 100 mg oral capsule) ??100 mg, By Mouth, Daily Insulin Lispro 100 units/mL Inj (3mL) (Insulin LISPRO Scale) ??2-8 units, Subcutaneous Injection, 3times a day before meals Isosorbide Mononitrate 30 [...] 2 times a day Pantoprazole 40 mg Inj (Protonix Inj) ??40 mg, IV Push Slowly, 2 times a day Polyethylene Glycol 17 Gm Powder (Polyethylene Glycol Powder) ??17 Gm 1 pack/packet, By Mouth, Daily Sucralfate 1 Gm Tablet (sucralfate 1 gm oral tablet) ??1 Gm, By Mouth, 3 times a day after meals and bedtime Vitamin D 50,000 International Unit Capsule (ergocalciferol 61911 iu oral capsule) ??50,000 units, By Mouth, Every 30 days CONTINUOUS: (0) PRN: (11) Acetaminophen 325 mg Tablet (Acetaminophen Tablet) ??650 mg, By Mouth, Every 4 hours Bisacodyl 10 mg Suppository (Bisacodyl Supp) ??10 mg 1 supp, Rectally, Daily Dextrose Inj Syringe (Dextrose 50% Inj Syringe (25Gm)) ??12.5 Gm, IV Push Slowly, Every 20 minutes Dextrose Inj Syringe (Dextrose 50% Inj Syringe (25Gm)) ??25 Gm, IV Push Slowly, Every 15 minutes Glucose 40% Gel (15 Gm) (Glucose Gel) ??15 Gm, By Mouth, Every 20 minutes Glucose 40% Gel (15 Gm) (Glucose Gel) ??30 Gm, By Mouth, Every 20 minutes Melatonin 3 mg Tablet (Melatonin Tablet) ??3 mg, By Mouth, Daily at bedtime NaCl 0.9% Flush 3ml (NaCL 0.9% Flush) ??3 mL, IV Push, Every 8 hours Ondansetron 2mg/mL Inj (2mL Vial) (Ondansetron Inj) ??4 mg, IV Push, Every 6 hours OxyCODONE 5 mg IR Tablet (oxyCODONE 5 mg oral tablet) ??5 mg, By Mouth, Every 6 hours Senna 8.6 mg / Docusate 50 mg tablet (Docusate/Senna Tablet) ??2 tablet, By Mouth, 2 times a day ? Assessment/Plan ?? 67-year-old male with past medical history significant for end-stage renal disease, CAD status postCABG, peripheral arterial disease status post bilateral AKA, hypertension, hyperlipidemia, hypothyroidism,??diabetes mellitus,??COPD on home O2 and chronic anemia secondary to chronic kidney disease + chronic liver cirrhosis + GAVE.?Once again he presents with symptomatic anemia. ?? Acute on chronic anemia (D64.9):? Symptomatic anemia likely??multifactorial: GAVE, ESRD Patient has multiple hospitalization for anemia. ?? In his last admission GI was consulted.?? He underwent EGD: normal esophagus, normal duodenum, erosions in the whole stomach given GAVE.?? Colonoscopy could not be done as patient was poorly preparedas he kept on refusing GoLytely for 2 days in a row ?? For admision on 05/19, hematology was consulted.?? Work-up for anemia included negative HIV, free kappa lambda ratio of 1.82, however negative serum electrophoresis.?? Normal B12, folate, iron panel.?? Given the patient had low haptoglobin, however had normal fibrinogen.?? He was recommended to follow-up with hematology outpatient, whom he sees at [facility] ?? This admission, again his iron, B12, folate level are normal.?? Haptoglobin less than 10, however normal fibrinogen ?? Plan I doubt any specialty consultation is needed this admission Most likely he just needs supportive management such as PRBC transfusion. Added peripheral blood smear continue to monitor H&H Continue ferrous sulfate 325 mg daily ?? Hypokalemia (E87.6):? Encourage p.o. intake Continue to follow electrolytes ?? ESRD on dialysis (N18.6):? Consult kidney care and transplant for hemodialysis needs Keep on a renal diet Continue multivitamins and supplements ?? Coronary artery disease (I25.10):? Peripheral vascular disease (I73.9):? Not on antiplatelets or anticoagulants due to high risk of GI bleeding ?? Hypertension (I10):? Continue carvedilol 25 mg twice daily Continue isosorbide mononitrate 60 mg daily Continue nifedipine 60 mg extended release 2 times a day Continue clonidine 0.2 mg twice daily All blood pressure medications with holding parameters ?? Hyperlipidemia (E78.5):? Continue atorvastatin ?? Hypothyroidism (E03.9):? Continue levothyroxine ?? Diabetes mellitus (E11.9):? POC glucose with meals and at bedtime Cover with insulin sliding scale Hypoglycemic protocol in place ?? COPD (chronic obstructive pulmonary disease) (J44.9):? Rescue beta agonist inhalers as needed Not on long-term meds Continue nocturnal and as needed O2 Supplementation ?? Chronic pain syndrome (G89.4):? Continue pain management (gabapentin + as needed oxycodone ) as being done in the outpatient Bowel regimen in place ?? VTE Prophylaxis:? Not on anticoagulation due to possible active bleeding Pneumoboots ? Code Status:? Full code ?Order Code Status:??Code Status Ordered ?? Ongoing Medical Necessity:? Correction of anemia ? Note * Wu Varghese RN: PERFORM Event Display: Discharge/Transfer Note Hospital Authored Date: [id number] Nursing Discharge Note Entered On: 11/27/2022 15:08 EST Performed On: 11/27/2022 15:08 EST by Wu Varghese RN Nursing Discharge Note 2 Discharge Time : 11/27/2022 14:32 EST Discharge Level of Care at Discharge : Home/Usp/Foster Care Discharge Nursing Homes/Rehab Facilities : [address] Patient Left Unit Via : Ambulance Patient Accompanied Off Unit with : Ambulance/Chair Van Personnel Handover Given to Transport Personnel : Yes DC Instructions Provided & Signed by Pt : Yes Patient Understands D/C Instructions : Yes Patient Instructions Discharge Signed : Yes Did Pt have Specialty Bed or Wound Vac : No Wu Varghese RN - 11/27/2022 15:08 EST * Michele ROJAS, Farzad Steiner: PERFORM Event Display: Discharge/Transfer Note Hospital Authored Date: [id number] Patient: ??CLINTON WHITE ? Age:??67 Years?Sex:??Male?:??1955?? Patient Information Discharge Location: [facility] Primary Care Physician: Ashley Byrne MD Admit Date/Time: 11/25/22 18:13 Discharge Disposition Discharge Disposition: Long-Term Facility/Rehab Discharge Diagnosis Acute on chronic anemia (D64.9) Hypokalemia (E87.6) ESRD on dialysis (N18.6) Coronary artery disease (I25.10) Peripheral vascular disease (I73.9) Hypertension (I10) Hyperlipidemia (E78.5) Hypothyroidism (E03.9) Diabetes mellitus (E11.9) COPD (chronic obstructive pulmonary disease) (J44.9) Chronic pain syndrome (G89.4) Anemia (D64.9) Anemia, unspecified type (D64.9) Hypokalemia (E87.6) Anemia of chronic disease COPD (chronic obstructive [...] times a day?before meals ? Medications Started No new medications Allergies Allergies ?(Active and Proposed Allergies Only) lisinopril? (Severity: Unknown severity, Onset: Unknown) ? Hospital Course 67-year-old male with a past medical history of end-stage renal disease on dialysis CAD s/p CABG, peripheral artery disease s/p bilateral AKA hypertension hyperlipidemia hypothyroidism diabetes mellitus COPD on home O2 and chronic anemia secondary to chronic kidney disease plus chronic liver cirrhosis plus GAVE who presented with symptomatic anemia. ?? On admission the patient had a hemoglobin level of 6.8. Patient continued to have low haptoglobin however this is not secondary to hemolysis but rather secondary to chronic liver disease. Iron level B12 and folate levels are within normal limits. Was transfused half a unit of PRBC and hemoglobin level improved to 8.1. Symptomatically improved. Most likely etiology for anemia is chronic disease with slow bleeding from GAVE. Will need to further follow-up with hematology as outpatient. ?? Has a history of ESRD and undergoes dialysis TTS. Patient was planned for dialysis inpatient on ever he refused to undergo dialysis as he did not receive the Benadryl prior to that. Discussed with renal, patient can follow-up in his outpatient hemodialysis center on Wednesday 11/29 for regular dialysis. ?? Patient will be discharged back to his facility for continued care. ?? Objective Measurements?? Weight: 56.4 kg (11/25/22) Dry Weight: 56.4 kg (11/25/22) ? Vital Signs?? Temperature: 97.3 DegF (11/27/22 05:00:00) Temperature Route: Oral (11/27/22 05:00:00) Pulse Rate: 60 bpm (11/27/22 09:53:00) Respiratory Rate: 16 br/min (11/27/22 11:07:00) Systolic Blood Pressure:??146 mm Hg??High (11/27/22 09:53:00) Systolic Blood Pressure:??146 mm Hg??High (11/27/22 09:53:00) Diastolic Blood Pressure:??48 mm Hg??Low (11/27/22 09:53:00) Diastolic Blood Pressure:??48 mm Hg??Low (11/27/22 09:53:00) Blood pressure sites: Arm, right (11/27/22 05:00:00) Pulse Pressure: 44 mm Hg (11/26/22 20:47:00) Oxygen Saturation: 100 % (11/27/22 05:00:00) Mode of Delivery (Oxygen): Room air (11/27/22 05:00:00) Early Warning Score: 8 (11/27/22 12:50:59) ? . Physical Exam Constitutional: Chronically ill-appearing but not in acute distress. Neck: Supple, Full range of motion.No JVD or bruits. Respiratory:??Clear to auscultation. No wheezing or rhonchi.??No use of accessory muscles. No tactile fremitus.?? Cardiovascular:??PMI not visible. S1 S2 regular. No murmurs, rubs or gallops. Gastrointestinal:??Abdomen soft, non-tender, non-distended. Normal bowel sounds. No pulsatile mass.No hepatosplenomegaly. Genitourinary:??No costovertebral angle tenderness. Extremities: No lower extremity pitting edema. No cyanosis or clubbing.?? Euvolemic Neurologic:??AAOx3, no focal deficits Musculoskeletal:??Bilateral AKA Pending Results Add On Lab Order ordered on 11/25/2022 Add On Lab Order ordered on 11/26/2022 B12 Binding Capacity ordered on 11/26/2022 Basic Metabolic Panel ordered on 11/27/2022 Blood Culture ordered on 11/25/2022 Blood Culture #2 ordered on 11/25/2022 COVID-19 (2019 Novel Coronavirus) PCR ordered on 11/27/2022 Peripheral Blood Smear Review ordered on 11/26/2022 Transfuse RBCs ordered on 11/25/2022 Follow-Up Appointments Added Follow Up ?Time Frame ?Comments Ashley Byrne MD?1 week: call to discuss follow up visit Post Discharge Care Activity: Ambulate with assistance ??3 times a day ??unless otherwise specified Code Status: ?? Full Resuscitation Discharge ?11/27/22 13:31:00 EST Home Health Face to Face ^HomeHealthFTF Results Discharge Labs BLOOD BANK Blood Type O Positive ()?? 11/25/2022 15:21 Antibody Screen Positive ()?? 11/25/2022 15:21 RBC Unit ID [id number] ()?? 11/25/2022 17:33 RBC Available PT ()?? 11/25/2022 17:33 ?? BLOOD COUNT & DIFF WBC 3.6 k/mm3 (Low)?? 11/27/2022 07:58 RBC 2.52 m/mm3 (Low)?? 11/27/2022 07:58 Hgb 7.7 Gm/dL (Low)?? 11/27/2022 07:58 Hct 24.0 % (Low)?? 11/27/2022 07:58 MCV 95.2 femtoliters (High)?? 11/27/2022 07:58 MCH 30.6 pg ()?? 11/27/2022 07:58 MCHC 32.1 g/dL (Low)?? 11/27/2022 07:58 Platelet Count 68 k/mm3 (Low)?? 11/27/2022 07:58 RDW-SD 65.4 femtoliters (High)?? 11/27/2022 07:58 MPV 13.2 femtoliters (High)?? 11/27/2022 07:58 Nucleated RBC (Automated) 0.0 #/100 WBC'S ()?? 11/27/2022 07:58 Abs. NRBC 0.0 k/mm3 ()?? 11/27/2022 07:58 Abs. Neut 1.8 k/mm3 ()?? 11/25/2022 15:36 Abs. Lymph 0.5 k/mm3 (Low)?? 11/25/2022 15:36 Abs. Wells 0.2 k/mm3 (Low)?? 11/25/2022 15:36 Abs. Eo 0.1 k/mm3 ()?? 11/25/2022 15:36 Abs. Baso 0.0 k/mm3 ()?? 11/25/2022 15:36 Neut % 68.0 % ()?? 11/25/2022 15:36 Lymph % 18.8 % ()?? 11/25/2022 15:36 Wells % 9.0 % ()?? 11/25/2022 15:36 Eos % 3.4 % ()?? 11/25/2022 15:36 Baso % 0.4 % ()?? 11/25/2022 15:36 Imm Gran 0.4 % ()?? 11/25/2022 15:36 Abs. Imm Gran 0.0 k/mm3 ()?? 11/25/2022 15:36 ?? CARDIAC High Sensitivity Troponin (HSTnT) 121 ng/L (Critical)?? 11/26/2022 07:49 ? CHEM GENERAL Sodium 137 mmol/L ()?? 11/27/2022 07:59 Potassium 5.1 mmol/L ()?? 11/27/2022 07:59 Chloride 99 mmol/L ()?? 11/27/2022 07:59 Bicarbonate Level 25 mmol/L ()?? 11/27/2022 07:59 Anion Gap 13 ()?? 11/27/2022 07:59 Glucose Level 128 mg/dL (High)?? 11/25/2022 15:36 Glucose, POC 99 mg/dL ()?? 11/27/2022 12:37 BUN 19 mg/dL ()?? 11/26/2022 00:55 Creatinine-Blood 4.5 mg/dL (High)?? 11/26/2022 00:55 Estimated GFR Creatinine 13 ML/MIN/1.73 M2 ()?? 11/26/2022 00:55 Calcium 8.7 mg/dL ()?? 11/25/2022 15:36 Phosphorus 2.7 mg/dL ()?? 11/26/2022 00:55 Magnesium 1.8 mg/dL ()?? 11/26/2022 00:55 LDH 338 units/L (High)?? 11/26/2022 08:49 Lactate 1.1 mmol/L ()?? 11/25/2022 15:36 Iron Level 95 mcg/dL ()?? 11/26/2022 08:49 Iron Binding Capacity, Unsaturated 90 mcg/dL (Low)?? 11/26/2022 08:49 Iron Binding Capacity, Estimated Total 185 mcg/dL ()?? 11/26/2022 08:49 % Iron Saturation 51 % ()?? 11/26/2022 08:49 Ferritin Level 1101 ng/mL (High)?? 11/26/2022 08:49 ?? COAG INR 1.2 (High)?? 11/26/2022 08:49 Protime (PT) 13.0 seconds (High)?? 11/26/2022 08:49 Fibrinogen 327 mg/dL ()?? 11/26/2022 08:49 ? HEME OTHER Hold Blue Top SPECIMEN DISCARDED AFTER 4 HOURS. ()?? 11/25/2022 15:36 ? IMMUNOLOGY GENERAL Haptoglobin <10 mg/dL (Low)?? 11/26/2022 08:49 ? MISC. CHEMISTRY Hold Green Top SPECIMEN DISCARDED AFTER 1 WEEK ()?? 11/25/2022 15:36 ? VIROLOGY COVID-19 by RT-PCR NEGATIVE ()?? 11/25/2022 15:56 ? 32??minutes spent on discharge * Wu Varghese RN: PERFORM Event Display: Patient Education/Instruction Authored Date: [id number] Inpatient Adult Discharge Instructions [place] [id number] Name: CLINTON WHITE : 1955 Visit: 11/25/2022 18:13:00 Current Date: 11/27/2022 13:33 Account: [id number] Inpatient Adult Discharge Instructions We would like [...] and their families. Surveys are administered by [employer] ?? If further treatment with your primary care physician or another doctor is recommended, it is important for you to keep the appointment. Call your primary care physician or return to the Emergency Department immediately if your condition worsens, fails to improve, or new symptoms develop. If you need to find a doctor, you can call [facility] for a referral at [phone] or toll free at [phone]) or log in to [email or web address].. ?? You can view and manage your care through the patient portal or by using a health care zeina of your choosing. [employer] is a website that allows you to securely view your medical information including your hospital discharge summary, office visit summaries, medications and follow-up visits. You can also request appointments, renew medications, and request access to your medical information using a health care zeina of your choosing, or just ask a question. You can enroll at [email or web address] or register during your next office visit. You have been discharged from [facility], Patient Care Unit: S64. If you have any questions regarding these instructions after you leave, please call us and we will be happy to assist you. [facility] Your Care Team Attending Physician Michele ROJAS, Farzad Steiner Discharging Providers Michele ROJAS, Farzad Steiner Reason for Admission Pt just had diaylsis, lab showed 6.4 hemoglobin. pt has been feeling weak today. [email or web address] Your Diagnosis Acute on chronic anemia Hypokalemia Anemia Hypokalemia ESRD on dialysis Coronary artery disease Hypertension Hyperlipidemia Hypothyroidism Peripheral vascular disease Diabetes mellitus COPD (chronic obstructive pulmonary disease) Chronic pain syndrome Anemia, unspecified type Hypokalemia Tests Performed Below is a partial list of the tests performed during your hospitalization. You may have had other tests and procedures not included in this list. Please discuss all test results with your provider. BUN CBC CBC w/ Differential COVID-19 (Novel Coronavirus), Rapid PCR Creatinine Electrolytes Ferritin Fibrinogen GLUCOSE POC H + H Haptoglobin High Sensitivity Troponin T HOLD BLUE TUBE HOLD GREEN TUBE Iron + Iron Binding Capacity Lactate Level LDH Magnesium Level PERIPHERAL BLOOD SMEAR REVIEW?-- Results Pending -- Phosphorus Level PT (INR) Troponin T, High Sensitivity Type and Screen ? You will be contacted within 72 hours with your results. Primary Care Provider Ashley Byrne MD Advance Directive Health Care Proxy on File Yes - Health Care Proxy Yes - MOLST Patient has a Designated Caregiver: No Discharge Vitals Temperature: 97.3 DegF Weight: 56.4 kg Pulse Rate: 60 bpm ?? Respiratory Rate: 16 br/min ?? Systolic Blood Pressure:??146 mm Hg??High ?? Systolic Blood Pressure:??146 mm Hg??High ?? Diastolic Blood Pressure:??48 mm Hg??Low ?? Diastolic Blood Pressure:??48 mm Hg??Low ?? Oxygen Saturation: 100 % ?? Studies Pending All tests and labs ordered during this hospital stay have been completed unless listed below. Please discuss all pending results with your provider listed above in these instructions. ?? Add On Lab Order B12 Binding Capacity Basic Metabolic Panel Blood Culture Blood Culture #2 COVID-19 (2019 Novel Coronavirus) PCR Peripheral Blood Smear Review Transfuse RBCs What to do next Instructions From Your Doctor Discharge Orders Activity:??Ambulate with assistance 3 times a day unless otherwise specified Code Status:?? Full Resuscitation You Need to Schedule the Following Appointments Follow Up with??Ashley Byrne MD When??Within 1 week: call to discuss follow up visit Where: [address] [place] [address] [place] [address]- Discharge Medications CLINTON WHITE :1955 Visit Date:11/25/2022 Medications: Please continue your medications until treatment is completed or stopped by your provider. Medications not listed below should be discontinued. Discuss any questions related to medications with your provider. What How Much When Instructions Next Dose Unchanged Acetaminophen (acetaminophen 325 mg oral tablet) 2 tab(s) Oral Every 6 hours as needed for as needed for fever/pain As Needed-- Last dose administered @ 1000 Unchanged Atorvastatin (atorvastatin 80 mg oral tablet) 1 tab(s) Oral Daily at Bedtime Resume Unchanged Bisacodyl (Dulcolax 10 mg rectal suppository) 1 suppository(ies) Per rectum Daily as needed for as needed for constipation As Needed Unchanged Brimonidine Ophthalmic (brimonidine 0.2% ophthalmic solution) 2 Drops Both eyes Twice a day Resume Unchanged Carvedilol (carvedilol 25 mg oral tablet) 1 tab(s) Oral Twice a day Last dose administered 11/27 @ 1000 Unchanged Cholecalciferol (cholecalciferol 50,000 intl units oral capsule) 1 capsule Oral Every 30 days on the ?? Resume Unchanged Clonidine (cloNIDine 0.1 mg oral tablet) 2 tab(s) Oral 3 times a day Hold for systolic BP<100 mm Hg ?? Last dose administered 11/27 @ 1000 Unchanged Docusate (docusate sodium 100 mg oral capsule) 1 capsule Oral Twice a day Last dose administered 11/27 @ 1000 Unchanged Epoetin Jose 20,000 unit(s) IV Push Slowly Thursday, Thursday and Thursday (NOT ON CURRENT PAPER CHART) ?? Resume Unchanged Ferrous Sulfate (ferrous sulfate 325 mg oral enteric coated tablet) 325 Milligram Oral 3 times a day Last dose administered 11/27 @ 999 ?? Unchanged Gabapentin (gabapentin 100 mg oral capsule) 1 capsule Oral Daily Take 3/3 Unchanged Isosorbide Mononitrate (Imdur ER) 60 Milligram Oral Daily Hold for systolic BP<100 mm Hg ?? Take 3/3 Unchanged Levothyroxine (levothyroxine 200 mcg (0.2 mg) oral capsule) 1 capsule Oral Daily Take 3/3 Unchanged Lidocaine Thursday, Thursday and Thursday NOT ON PAPER CHART ?? Resume Unchanged Multivitamin (Vitamin B Complex oral tablet, extended release) 1 tab(s) Oral Daily Take 3/3 Unchanged nalOXONE (Narcan 4 mg/ 0.1 mL nasal spray) 4 Milligram Naris, Left Once as needed for as needed As Needed Unchanged nalOXONE (Narcan Inj) 1 Milliliter Intramuscular Once as needed for as needed As Needed Unchanged NIFEdipine (NIFEdipine 60 mg oral tablet, extended release) 1 tab(s) Oral Twice a day Hold for systolic BP<100 mm Hg ?? Last dose administered 11/27 @ 999 Unchanged Pantoprazole (pantoprazole 40 mg oral delayed release tablet) 1 tab(s) Oral Twice a day Last dose administered 11/27 @ 1000 Unchanged Sucralfate (sucralfate 1 gm oral tablet) 1 tab(s) Oral Twice a day before meals ?? Last dose administered 11/27 @ 1000 Test Results Below is a partial list of the most recent Laboratory test results done prior to this discharge. You may have had other tests and procedures not included in this list. Please discuss all test resultswith your provider. RBC Available - PT (11/25/2022) RBC Unit ID - [id number] (11/25/2022) BUN (11/26/2022) ???BUN - 19 mg/dL CBC (11/27/2022) ???WBC - 3.6 k/mm3???RBC - 2.52 m/mm3???Hgb - 7.7 Gm/dL???Hct - 24.0 %???MCV - 95.2 femtoliters???MCH - 30.6 pg???MCHC - 32.1 g/dL???Platelet Count - 68 k/mm3???RDW-SD - 65.4 femtoliters???MPV - 13.2femtoliters???Nucleated RBC (Automated) - 0.0 #/100 WBC'S???Abs. NRBC - 0.0 k/mm3 CBC w/ Differential (11/25/2022) ???WBC - 2.7 k/mm3???RBC - 2.24 m/mm3???Hgb - 6.8 Gm/dL???Hct - 21.3 %???MCV - 95.1 femtoliters???MCH - 30.4 pg???MCHC - 31.9 g/dL???Platelet Count - 69 k/mm3???RDW-SD - 69.2 femtoliters???MPV - NOT MEASURED???Nucleated RBC (Automated) - 0.0 #/100 WBC'S???Abs. NRBC - 0.0 k/mm3???Abs. Neut - 1.8 k/mm 3???Abs. Lymph - 0.5 k/mm3???Abs. Wells - 0.2 k/mm3???Abs. Eo - 0.1 k/mm3???Abs. Baso - 0.0 k/mm3???Neut % - 68.0 %???Lymph % - 18.8 %???Wells % - 9.0 %???Eos % - 3.4 %???Baso % - 0.4 %???Imm Gran - 0.4 %???Abs. Imm Gran - 0.0 k/mm3 COVID-19 (Novel Coronavirus), Rapid PCR (11/25/2022) ???COVID-19 by RT-PCR - NEGATIVE Creatinine (11/26/2022) ???Creatinine-Blood - 4.5 mg/dL???Estimated GFR Creatinine - 13 ML/MIN/1.73 M2 Electrolytes (11/27/2022) ???Sodium - 137 mmol/L???Potassium - 5.1 mmol/L???Chloride - 99 mmol/L???Bicarbonate Level - 25 mmol/L???Anion Gap - 13 Ferritin (11/26/2022) ???Ferritin Level - 1101 ng/mL Fibrinogen (11/26/2022) ???Fibrinogen - 327 mg/dL GLUCOSE POC (11/27/2022) ???Glucose, POC - 99 mg/dL H + H (11/27/2022) ???Hgb - 8.1 Gm/dL???Hct - 26.1 % Haptoglobin (11/26/2022) ? ?Haptoglobin - <10 mg/dL High Sensitivity Troponin T (11/25/2022) ???High Sensitivity Troponin (HSTnT) - 121 ng/L HOLD BLUE TUBE (11/25/2022) ???Hold Blue Top - SPECIMEN DISCARDED AFTER 4 HOURS. HOLD GREEN TUBE (11/25/2022) ???Hold Green Top - SPECIMEN DISCARDED AFTER 1 WEEK Iron + Iron Binding Capacity (11/26/2022) ???Iron Level - 95 mcg/dL???Iron Binding Capacity, Unsaturated - 90 mcg/dL???Iron Binding Capacity,Estimated Total - 185 mcg/dL???% Iron Saturation - 51 % Lactate Level (11/25/2022) ???Lactate - 1.1 mmol/L LDH (11/26/2022) ???LDH - 338 units/L Magnesium Level (11/26/2022) ???Magnesium - 1.8 mg/dL Phosphorus Level (11/26/2022) ???Phosphorus - 2.7 mg/dL PT (INR) (11/26/2022) ???INR - 1.2???Protime (PT) - 13.0 seconds Troponin T, High Sensitivity (11/26/2022) ???High Sensitivity Troponin (HSTnT) - 121 ng/L Type and Screen (11/25/2022) ???Blood Type - O Positive???Antibody Screen - [...] Belongings I fully understand and agree that [facility] accepts no responsibility for all my [...] patient Date for Pt to Sign Valuables/Belongings: 11/25/22 22:30:00 ?? Other Discharge Information ? Case Management Discharge Plan?? Discharge Plan?? Discharge Nursing Homes/Rehab Facilities: [address] ?? Pulmonary Rehab Status?? Pulmonary Rehab Discharge [...] strongly encouraged to quit. Please call [facility] at [phone] or [phone] ([phone]) or log in to [email or web address] for referrals to smoking cessation programs. ?? The National Suicide Prevention Hotline is available 20/04 if you or someone you know needs to find a reason to keep living. By calling 0-690-699-[employer] (4399) you'll be connected to a skilled, trained counselor at a crisis center in your area. INPATIENT DISCHARGE INSTRUCTIONS SIGNATURE PAGE CINDY CLINTON Location:[facility] Registration Date and Time:11/25/2022 18:13 EST Primary Care Physician: Caty ROJAS [facility], I CLINTON WHITE, have received the above patient education materials/instructions and have verbalized understanding. If ambulance or transport services are being used I further acknowledge being given a choice of service. ?? If you need to contact me, please call me at this number: . Patient/Suction Roller Name: Patient/Suction Roller Signature: Relationship to Patient: Witness Name/Signature: Date: Patient Care team information Care Team Personnel Name: Capri Bush RN Position: [facility] RN Member Role: Primary Care Nurse Name: Arlen Hale LPN Position: [facility] RN Member Role: Primary Care Nurse Name: Chloe Dhaliwal RN Position: [facility] RN Member Role: Primary Care Nurse Name: Laureano Crawley RN Position: [facility] RN Member Role: Primary Care Nurse Name: Mary Ellen Mcdonald NP Position: [facility] Associate Professional Member Role: Lifetime Consulting Provider Address: Address: [address] [place], [place] [address]E [facility] [address] Name: Dread Trent RN Position: [facility] RN Member Role: Primary Care Nurse Name: Yudelka Hawkins RN Position: [facility] RN Member Role: Primary Care Nurse Name: Wojciech Arriaga RN Position: S RN Member Role: Primary Care Nurse Name: Jodi Parr RN Position: [facility] RN Member Role: Primary Care Nurse Name: Nasreen Gamble RN Position: [facility] OB RN Member Role: Primary Care Nurse Name: Marvin Dooley DO Position: [facility] Renal MD Member Role: Lifetime Consulting Physician Address: Address: [address] [place] [address] [address] [facility] [address] Name: Fermín Dominguez III, RN Position: [facility] RN Member Role: Primary Care Nurse Name: Rut Tucker Position: S RN Member Role: Primary Care Nurse Name: Gutierrez Anderson MD Position: [facility] Renal MD Member Role: Lifetime Consulting Physician Address: Address: [address] [place] [address] [address] [facility] [place] [address]- [place] Name: Leeann Brown RN Position: [facility] RN Member Role: Primary Care Nurse Name: Pepe Brown RN Position: [facility] RN Member Role: Primary Care Nurse Name: Kassy Jo RN Position: [facility] RN Member Role: Primary Care Nurse Name: Patricia Chase RN Position: [facility] RN Member Role: Primary Care Nurse Name: Felisha Simon Position: [facility] RN Member Role: Primary Care Nurse Name: Martha Lawson RN Position: [facility] RN Member Role: Primary Care Nurse Name: Stephen Hua RN Position: [facility] RN Member Role: Primary Care Nurse Name: Geraldine Whyte RN Position: [facility] RN Member Role: Primary Care Nurse Name: Ashley Byrne MD Position: [facility] Outreach Member Role: PCP Address: Address: [address] [place] [address] [place] [address]- [place] Name: Janna Valverde RN Position: [facility] RN Member Role: Primary Care Nurse Name: Kyle Matthesw RN Position: [facility] RN Member Role: Primary Care Nurse Name: Judi Phillips RN, I Position: [facility] RN Member Role: Primary Care Nurse Name: Franky BLANKENSHIP Attending Position: [facility] ED Medicine MD Name: Dianne Saleem Position: [facility] ED OA Charge Member Role: ED Associate Name: Megan Cazares Position: [facility] ED [facility] Member Role: ED Associate Name: Rasta Wilcox RN Position: [facility] ED RN W/OE and Tasks Member Role: Patient Care Provider Name: Jackelyn Vargas DO Position: [facility] Resident Member Role: Resident Address: Address: [address] [place] [address] [place] [address]- [place] Care Team Related Persons Name: DANNA ORR Address: [place] [address]
--- OUTSIDE RECORDS SUMMARY | 2023-08-23 07:14 | XMS_ITS | Continuity of Care Document ---
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 Name Role Phone Rasta Guerrero MD Primary Care Physician Encounter [facility] ACCT R [id number] Date(s): 01/27/23 - 01/27/[address] [address]- Encounter Diagnosis Anemia(Final) - 01/27/23 Discharge Disposition: A-D/C Home Attending Physician: Dez Leonard MD Admitting Physician: Dez Leonard MD Referring Physician: Not on Staff, Referring MD Allergies, Adverse Reactions, Alerts Substance Reaction Severity Status lisinopril Active Immunizations Given and Recorded Vaccine Date Status Refusal Reason [id number] 12y+ bivalent booster vax 08/01/22 Recorded SARS-CoV-2 (COVID-19) mRNA-1273 vaccine 07/04/22 R ecorded SARS-CoV-2 (COVID-19) mRNA-1273 vaccine 11/13/20 R ecorded SARS-CoV-2 (COVID-19) mRNA-1273 vaccine 10/15/20 R ecorded SARS-CoV-2 mRNA ([id number]) vax 02/04/22 Recorded SARS-CoV-2 (COVID-19) mRNA BNT-162b2 [...] opioid drug. Start Date: 12/06/22 Status: Ordered Coreg 25 mg oral tablet 25 mg, Tablet, By Mouth, Once, STAT, 01/27/23 11:30:00 EDT, Stop date 01/27/23 11:30:00 EDT Start Date: 01/27/23 Stop Date: 01/27/23 Status: Completed docusate sodium 100 mg oral capsule 100 [...] IIopioid drug. Start Date: 10/16/22 Status: Ordered NIFEdipine 60 mg oral tablet, extended release 60 mg, ER Tablet, By Mouth, Once, STAT, 01/27/23 11:31:00 EDT, Stop date 01/27/23 11:31:00 EDT Notes: Do Not Crush. Start Date: 01/27/23 Stop Date: 01/27/23 Status: Completed pantoprazole 40 mg oral delayed release tablet [...] 1 2 3 Oxygen Saturation [94-100 %] 98 % (01/27/23 3:24 PM) 100 % (01/27/23 11:11 AM) Pulse Rate [55-90 bpm] 62 bpm (01/27/23 11:54 AM) 62 bpm (01/27/23 11:11 AM) Blood Pressure [90-138/55-84 mm Hg] 161/58mm Hg *H* (01/27/23 3:24 PM) 187/62mm Hg *H* (01/27/23 11:54 AM) 187/62mm Hg *H* (01/27/23 11:54 AM) Respiratory Rate [16-30 br/min] 18 br/min (01/27/23 3:24 PM) 18 br/min (01/27/23 11:11 AM) Temperature [96.8-100.4 DegF] 98.0 DegF (01/27/23 11:11 AM) Liters per Minute 3 L/min (01/27/23 3:24 PM) 3 L/min (01/27/23 11:11 AM) Mode of Delivery (Oxygen) Nasal cannula (01/27/23 3:24 PM) Nasal cannula (01/27/23 11:11 AM) Blood pressure sites Arm, left (01/27/23 3:24 PM) Temperature Route Oral (01/27/23 11:11 AM) Social History Social History Type Response Smoking Status Former smoker, quit more than 30 days ago; Other: Quit 20 years ago, smoked for 30 years 1.5 ppd; entered on: 06/30/22 Sex Note * Dez Leonard MD: PERFORM, SIGN, VERIFY Event Display: Patient Education Handout Authored Date: [id number] Patient Care team information Care Team Personnel Name: Capri Bush RN Position: [facility] RN Member Role: Primary Care Nurse Name: Arnold Canales RN Position: S RN Member Role: Primary Care Nurse Name: Linda La RN Position: [facility] Outreach Member Role: Primary Care Nurse Name: Arlen Hale LPN Position: [facility] RN Member Role: Primary Care Nurse Name: Chloe Dhaliwal RN Position: [facility] RN Member Role: Primary Care Nurse Name: Laureano Crawley RN Position: [facility] RN Member Role: Primary Care Nurse Name: Mary Ellen Mcdonald NP Position: [facility] Associate Professional Member Role: Lifetime Consulting Provider Address: Address: [address] [place], [place] [address]E [facility] [place] [address]- Name: Barrie Lopez MD Position: [facility] Renal MD Member Role: Lifetime Consulting Physician Address: Address: [address] [place], [place] [address]E [facility] [place] [address]- Name: Dread Trent RN Position: [facility] RN Member Role: Primary Care Nurse Name: Wojciech Arriaga RN Position: [facility] RN Member Role: Primary Care Nurse Name: Jodi Parr RN Position: [facility] RN Member Role: Primary Care Nurse Name: Nasreen Gamble RN Position: [facility] OB RN Member Role: Primary Care Nurse Name: Marvin Dooley DO Position: [facility] Renal MD Member Role: Lifetime Consulting Physician Address: Address: [address] [place], [place] [address]E [facility] [place] [address]- Name: Fermín Dominguez III, RN Position: [facility] RN Member Role: Primary Care Nurse Name: Rut Tucker Position: [facility] RN Member Role: Primary Care Nurse Name: Gutierrez Anderson MD Position: [facility] Renal MD Member Role: Lifetime Consulting Physician Address: Address: [address] [facility] [address] [facility] [place] [address]- [place] Name: Rasta Guerrero MD Position: [facility] Outreach Member Role: PCP Address: Address: [address] [facility] [place] [address]- [place] Name: Leeann Brown RN Position: [facility] RN Member Role: Primary Care Nurse Name: Pepe Brown RN Position: [facility] RN Member Role: Primary Care Nurse Name: Kassy Jo RN Position: [facility] RN Member Role: Primary Care Nurse Name: Patricia Chase RN Position: [facility] RN Member Role: Primary Care Nurse Name: Martha Lawson RN Position: [facility] RN Member Role: Primary Care Nurse Name: Geraldine Whyte RN Position: [facility] RN Member Role: Primary Care Nurse Name: Janna Valverde RN Position: [facility] RN Member Role: Primary Care Nurse Name: Kyle Matthews RN Position: [facility] RN Member Role: Primary Care Nurse Name: Rasta Silverio RN Position: [facility] RN Member Role: Primary Care Nurse Name: Judi Phillips RN, I Position: [facility] RN Member Role: Primary Care Nurse [facility] Attending Position: [facility] ED Attendings Patient Name: Josh Palumbo Position: [facility] ED [facility] Member Role: Patient Care Provider Name: Dez Leonard MD Position: [facility] ED Medicine MD Member Role: Admitting Physician Address: Address: [address] [place] [address] [place] [address]- Name: Pretty Granados RN Position: [facility] ED RN W/OE and Tasks Member Role: Patient Care Provider Care Team Related Persons Name: DANNA ORR Address: [place] [address]
[2023-08-23 07:26] LABS: VBG Base Excess 7.8 mmol/L; VBG HCO3 32 mmol/L (22-26); VBG pCO2 47 mmHg; VBG pH 7.44 (7.32-7.43); VBG pO2 71 mmHg
[2023-08-23] MEDS: Furosemide 40 MG/4 ML VIAL IVPUSH (07:28)
[2023-08-23 07:30] LABS: Carbon Monoxide Refer to POC result
[2023-08-23 07:31] LABS: Venous Blood Gas Refer to POC result
[2023-08-23 07:31] LABS: Carbon Monoxide POC 5.3 %
[2023-08-23 07:31] LABS: INTERNATIONAL NORM RATIO 1.2 (0.9-1.1); Prothrombin Time 14.3 SEC (11.1-13.3)
[2023-08-23] MEDS: Nitroglycerin 2 % Oint 1 GM Packet 1 INCH TRANSDERMA (07:37)
[2023-08-23 07:38] LABS: Basophils Percent Auto 0.4 % (0-2); Imm Gran Abs Auto 0.04 X10*3/uL (0.00-0.03); Imm Gran Pct Auto 0.8 % (0.0-0.4); Lymphocytes Absolute Auto 0.5 X10*3/uL (1.2-4.9); Lymphocytes Percent Auto 9.3 % (20-40); MANUAL DIFF FLAG SCAN; SCAN SMEAR FLAG 1; White Blood Count 5.2 X10*3/uL (4.8-10.8)
[2023-08-23 07:41] LABS: Eosinophils Absolute Auto 0.1 X10*3/uL (0.0-0.4); Eosinophils Percent Auto 2.1 % (0-4); Hematocrit 26.3 % (42.0-52.0); Mean Corpuscular HGB Conc 30.4 g/dl (31.0-36.0); Mean Corpuscular Hemoglobin 31.1 pg (27.0-33.0); Mean Corpuscular Volume 102.3 fL (80.0-98.0); Monocytes Absolute Auto 0.4 X10*3/uL (0.1-1.2); Monocytes Percent Auto 8.5 % (2-11); Neutrophils Absolute Auto 4.1 x10*3/uL (2.0-8.3); Neutrophils Percent Auto 78.9 % (45-73); Red Blood Count 2.57 X10*6/uL (4.60-5.80); Red Cell Distribution Width 20.4 % (11.0-16.0)
[2023-08-23 07:42] LABS: Platelet Count 84 X10*3/uL (160-400)
[2023-08-23 07:43] LABS: PLT ABN DIST 1
[2023-08-23 07:53] LABS: Lactic Acid 0.6 mmol/L (0.5-2.0)
[2023-08-23] MEDS: Albuterol/Iprat 2.5/0.5MG 3 ML AMPUL.NEB INHALE (07:54)
[2023-08-23 07:55] LABS: B Type Natriuretic Peptide 1348 pg/mL (<100)
--- NOTE | 2023-08-23 07:56 | PC.NURSE ---
pt with increased respiratory distress, tripoding in the bed. respiratory at bedside to place pt on BiPap.
[2023-08-23 08:00] LABS: Troponin-I High Sensitivity 23.4 ng/L (<3.5-35.0)
[2023-08-23 08:04] LABS: Alanine Aminotransferase 7 U/L (0-40); Albumin Level 3.9 g/dL (3.5-5.0); Alkaline Phosphatase 80 U/L (39-117); Anion Gap 17 (12-20); Aspartate Amino Transferase 24 U/L (5-37); Bilirubin Direct 0.3 mg/dL (0.0-0.5); Blood Urea Nitrogen 33 mg/dL (9-16); Calcium 9.2 mg/dL (8.4-10.2); Carbon Dioxide 27 mmol/L (22-29); Chloride 104 mmol/L (96-108); Creatinine Clr Calc Pharmacy 2.6; Estimated Glomerular Filt Rate 7; Glucose Random 95 mg/dL (60-115); Lipase 20 U/L (8-78); Potassium 4.6 mmol/L (3.3-5.1); Sodium 143 mmol/L (135-145); Total Protein 7.4 g/dL (6.5-8.0)
[2023-08-23 08:11] LABS: SLIDE REVIEW VERIFIED
--- NOTE | 2023-08-23 08:48 | PC.NURSE ---
pt up to bedside commode for BM
[2023-08-23] MEDS: hydrALAZINE HCl 20 MG/ML VIAL 10 MG IVPUSH (09:05)
--- NOTE | 2023-08-23 09:18 | PC.NURSE ---
canceled U/A on pt as he reports he does not produce urine
[2023-08-23] MEDS: fentaNYL citrate/PF 100 MCG/2 ML VIAL 25 MCG IVPUSH ×2 (09:41→11:06)
[2023-08-23] MEDS: Nitroglycerin/D5W 100 MG/250 ML INFUS..BTL IVCONT (09:47)
--- NOTE | 2023-08-23 10:15 | PC.NURSE ---
pt taken off BiPAP at this time, changed to NC on 3L. tolerating well. Nitro gtt stopped at this time per MD Oakley
[2023-08-23 10:48] LABS: Troponin-I High Sensitivity 26.3 ng/L (<3.5-35.0)
[2023-08-23 11:17] LABS: Influenza A PCR NEGATIVE (Negative); Influenza B PCR NEGATIVE (Negative); Resp Syncy Virus RNA Qual PCR NEGATIVE (Negative); SARS COV2 PCR INHOUSE NEGATIVE (Negative)
--- NOTE | 2023-08-23 11:35 | PC.NURSE ---
pt off unit to dialysis
--- NOTE | 2023-08-23 13:24 | PM.IMHP ---
History of Present Illness Date of Service: 08/23/23 Chief Complaint: Shortness of breath 67-year-old male history of end-stage kidney disease (on HD MWF last session thursday) , CAD, anemia, acute hypoxic respiratory failure, pancytopenia, pulmonary edema, ischemic cardiomyopathy presenting to the emergency department for complaints of substernal chest pain, shortness of breath ongoing for the past 3 hours. Patient reports that this started suddenly, chest pain in the substernal region, nonradiating, describes it as constant, stabbing. Shortness of breath at rest and with exertion. Patient wears 3 L nasal cannula at baseline however was moved up to 4 L, according to EMS patient received nitroglycerin, this provided little relief to patient, and he has been saturating 95-97% EN route. He has aspirin allergy. Aspirin is not given. EMS also reported carbon dioxide levels in the facility were 11, however there unsure if this is a faulty read. Patient denies fevers, chills, recent sick contacts, cough, nausea, vomiting, abdominal pain, headache, vision changes, dizziness and weakness. ER Course Shortness of breath increased assess obtain need for BiPAP. Patient's x-ray consistent with acute CHF; was due for dialysis tomorrow Renal contacted dialysis will be done for today. Aggressive blood pressure control was achieved and patient was able to be removed from BiPAP. 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 Myocardial infarction involving left anterior descending (LAD) coronary artery Ischemic cardiomyopathy CKD (chronic kidney disease) requiring chronic dialysis Anemia Essential hypertension End stage chronic kidney disease Household Members: None Household Members Other:: [facility] Housing: [facility] Housing Other:: [facility] Do you presently have visiting nurse or other home services: No Unable to assess alcohol history related to: Unable to respond Alcohol intake: former Patient Tobacco Use Status: Former Tobacco user Quit Date: 20 YEARS AGO Tobacco use type: Cigarette Years Smoked: 20 Smoked in Last 30 Days: No e-Cigarette/Vaping Use: Never Used Second Hand Smoke Exposure: No Use of substances other than those prescribed or required for medical reasons: Yes Substance Use Type: Marijuana Substance Use Frequency: Occasionally Advance Directives: Yes Advance Directives on File: Yes Advance Directives Date on File: 05/26/22 Nutrition Risks: No Nutritional Risk service: No Meds Allergies Allergy/AdvReac Type Severity Reaction Status Date / Time bee pollen [bee stings] Allergy Angioedema Verified 09/06/22 01:36 lisinopril Allergy Cough Verified 09/06/22 01:35 Active Medications: Current Medications Heparin Sodium (Porcine) (Heparin Sodium,Porcine 5,000 Unit/Ml Vial) 5,000 unit SUBCUT Q12H [facility] Morphine Sulfate (Morphine Sulfate 4 Mg/Ml Cartridge) 4 mg IVPUSH Q4H PRN; Protocol PRN Reason: Pain, Severe (Pain Scale 7-10) Nitroglycerin (Nitroglycerin 2 % Oint 1 Gm Packet) 1 inch TRANSDERMA Q6H [facility] Last Admin: 08/23/23 13:15 Dose: Not Given Sodium Chloride (0.9 % Sodium Chloride Flush 3 Ml Syringe) 3 ml IVFLUSH QSHIFT [facility] Home Medications Medication Instructions Recorded Confirmed Last Taken Type acetaminophen 325 mg tablet 650 mg PO Q6H PRN Pain (Scale 05/23/22 09/06/22 09/05/22 History Score 4-6) atorvastatin 80 mg tablet 80 mg PO BEDTIME 05/23/22 09/06/22 09/05/22 History bisacodyl 10 mg rectal suppository 10 mg MD DAILY PRN IF MOM 05/23/22 09/06/22 09/05/22 History INEFFECTIVE FOR BM brimonidine 0.2 % eye drops 1 drp ophthalmic (eye) BID 05/23/22 09/06/22 09/05/22 History carvedilol 25 mg tablet 25 mg PO BID 05/23/22 09/06/22 09/05/22 History clonidine HCl 0.2 mg tablet 0.2 mg PO SuTuTh@0900 05/23/22 09/06/22 09/05/22 History docusate sodium 100 mg capsule 100 mg PO BID 05/23/22 09/06/22 09/05/22 History gabapentin 100 mg capsule 100 mg PO DAILY 05/23/22 09/06/22 09/05/22 History isosorbide mononitrate 30 mg 1 tab PO DAILY 05/23/22 09/06/22 09/05/22 History tablet,extended release 24 hr pantoprazole 40 mg tablet,delayed 40 mg PO BID 05/23/22 09/06/22 09/05/22 History release sevelamer carbonate 800 mg tablet 800 mg PO TIDWM 05/23/22 09/06/22 09/05/22 History vitamin B complex 1 tab PO DAILY 05/23/22 09/06/22 09/05/22 History cholecalciferol (vitamin D3) 1,250 1,250 mcg PO Q28H 08/23/22 09/06/22 08/09/22 History mcg (50,000 unit) capsule epoetin shayla 20,000 unit/mL 20,000 unit subcut MOWEFR 08/23/22 09/06/22 09/05/22 History injection solution (Epogen) levothyroxine 200 mcg tablet 200 mcg PO DAILY@0600 08/23/22 09/06/22 09/05/22 History nifedipine 60 mg tablet,extended 60 mg PO DAILY 08/23/22 09/06/22 09/05/22 History release 24 hr Physical Exam Vital Signs and Narrative: Vital Signs: Last Vital Signs Temp 98 F 08/23/23 07:25 Pulse 87 08/23/23 11:22 Resp 28 H 08/23/23 10:16 BP 183/73 H 08/23/23 11:22 Pulse Ox 97 08/23/23 10:16 O2 Del Method Nasal Cannula 08/23/23 10:16 O2 Flow Rate 3 08/23/23 10:16 Oxygen Flow Rate 3 08/23/23 06:53 BMI result Body Mass Index 74.0 Const: Other: Awake alert no acute distress. Breathing effortlessly on nasal cannula Resp: Other: Diminished at bases with bilateral basilar crackles Cardio: Other: No S4; positive S1-S2; no S3 murmurs rubs or gallops GI: Other: Soft nontender nondistended normoactive bowel sounds Extrem: Other: Bilateral BKA Results Labs 08/23/23 07:17 08/23/23 07:17 Labs: Laboratory Results - last 24 hr 08/23/23 08/23/23 08/23/23 07:17 07:21 07:24 MCV 102.3 H MCH 31.1 MCHC 30.4 L RDW 20.4 H Plt Count 84 L MPV Not Reportable Immature Gran % (Auto) 0.8 H Neut % (Auto) 78.9 H Lymph % (Auto) 9.3 L [place] % (Auto) 8.5 Eos % (Auto) 2.1 Baso % (Auto) 0.4 Lymph # (Auto) 0.5 L [place] # (Auto) 0.4 Eos # (Auto) 0.1 Baso # (Auto) 0.0 Abs Immat Gran (auto) 0.04 H Absolute Neuts (auto) 4.1 Absolute Nucleated RBC 0.000 Nucleated RBC % (auto) 0.0 Smear Tech's Comments VERIFIED PT 14.3 H INR 1.2 H VBG pH 7.44 H VBG pCO2 47 VBG pO2 71 VBG HCO3 32 H VBG O2 Saturation 95.0 VBG Base Excess 7.8 Carboxyhemoglobin % 5.3 H* Anion Gap 17 Estim Creat Clear Calc 2.6 Estimated GFR 7 Random Glucose 95 Lactic Acid 0.6 Calcium 9.2 Total Bilirubin 1.0 Direct Bilirubin 0.3 AST 24 ALT 7 Alkaline Phosphatase 80 B-Natriuretic Peptide 1348 H Total Protein 7.4 Albumin 3.9 Lipase 20 Influenza Type A (PCR) Influenza Type B (PCR) RSV RNA Qual (PCR) SARS-CoV-2 RNA (RT-PCR) 08/23/23 10:13 MCV MCH MCHC RDW Plt Count MPV Immature Gran % (Auto) Neut % (Auto) Lymph % (Auto) [place] % (Auto) Eos % (Auto) Baso % (Auto) Lymph # (Auto) [place] # (Auto) Eos # (Auto) Baso # (Auto) Abs Immat Gran (auto) Absolute Neuts (auto) Absolute Nucleated RBC Nucleated RBC % (auto) Smear Tech's Comments PT INR VBG pH VBG pCO2 VBG pO2 VBG HCO3 VBG O2 Saturation VBG Base Excess Carboxyhemoglobin % Anion Gap Estim Creat Clear Calc Estimated GFR Random Glucose Lactic Acid Calcium Total Bilirubin Direct Bilirubin AST ALT Alkaline Phosphatase B-Natriuretic Peptide Total Protein Albumin Lipase Influenza Type A (PCR) NEGATIVE Influenza Type B (PCR) NEGATIVE RSV RNA Qual (PCR) NEGATIVE SARS-CoV-2 RNA (RT-PCR) NEGATIVE Imaging Radiologist's Impressions: Impressions Chest X-Ray 08/23/23 06:50 IMPRESSION: * Lungs are hypoinflated and suboptimally evaluated. * Interstitial and patchy pulmonary opacities are nonspecific but could represent noncardiogenic edema. A superimposed pneumonia would have to be excluded on the basis of clinical criteria. * Persistent small right pleural effusion. * Chronic renal osteodystrophy is suspected. Assessment and Plan (1) Acute hypoxemic respiratory failure: Status: Acute (2) Acute systolic congestive heart failure: Status: Acute (3) Hypertensive emergency: Status: Acute (4) End stage chronic kidney disease: Status: Acute Plan 67-year-old male with known history of end-stage renal disease on hemodialysis presents with acute onset of shortness of breath chest pain. In the emergency room he was found to be hypoxic and placed on rescue BiPAP. He was noted to have blood pressures in the 210/120 range; these were treated aggressively and BiPAP was able to be removed. Nephrology was consulted and patient will receive dialysis urgently today. 1.Acute systolic CHF -last echo 04/2022 demonstrated LVEF 20-25% -will repeat echo in a.m. along with cardiology consult -aggressive afterload reduction after hemodialysis -continue outpatient therapies and adjust as indicated 2. Acute hypoxic respiratory failure secondary to 1. 3. Hypertension (chronic) with hypertensive emergency -responded to therapies -follow response to hemodialysis -resume all outpatient therapies and adjust as indicated -follow renals/divalents Heparin Full code Patient will require ongoing hospitalization for emergent hemodialysis and treatment of acute systolic heart failure. This cannot be achieved a lesser acute setting Quality Stroke Does the patient have a stroke diagnosis?: No VTE Prior VTE?: No VTE Risk Level:: Medical - moderate - high VTE Device Contraindication: Treatment Not Indicated VTE Drug Contraindication: N/A - Med Ordered
[2023-08-23] MEDS: Morphine Sulfate 4 MG/ML CARTRIDGE IVPUSH ×2 (13:41→20:35)
--- NOTE | 2023-08-23 14:00 | PHA.MEDREC ---
Pharmacy Consult ? Medication Reconciliation Pharmacy has completed the medication reconciliation. used list from [facility]
[2023-08-23] MEDS: Isosorbide Mononitrate 60 MG TAB.ER.24H PO (20:20)
[2023-08-23] MEDS: cloNIDine HCL 0.2 MG TABLET PO (20:20)
[2023-08-23] MEDS: NIFEdipine ER 90 MG TAB.ER.24 PO (20:21)
[2023-08-23] MEDS: Atorvastatin Calcium 40 MG TABLET PO (20:21)
[2023-08-23] MEDS: hydrALAZINE HCl 25 MG TABLET 75 MG PO (20:21)
[2023-08-23] MEDS: Sucralfate 1 GM TABLET PO (20:21)
[2023-08-23] MEDS: Docusate Sodium 100 MG CAPSULE PO (20:22)
[2023-08-23] MEDS: carvediloL 25 MG TABLET PO (20:22)
[2023-08-23] MEDS: Pregabalin 50 MG CAPSULE PO (20:23)
[2023-08-23] MEDS: Levothyroxine Sodium 200 MCG TABLET PO (20:23)
[2023-08-23] MEDS: Omeprazole 20 MG CAPSULE.DR PO (20:23)
[2023-08-23] MEDS: hydrALAZINE HCl 25 MG TABLET PO (22:50)
[2023-08-23] MEDS: 0.9 % Sodium Chloride Flush 3 ML SYRINGE IVFLUSH (23:02)
[2023-08-24] VITALS (10 sets, daily range): BP systolic 98–170; BP diastolic 44–72; PULSE 64–76; RESP 16–20; TEMP 36–36.7; O2SAT 95–100
[2023-08-24] MEDS: NIFEdipine ER 90 MG TAB.ER.24 PO ×2 (05:43→16:34)
[2023-08-24] MEDS: Morphine Sulfate 4 MG/ML CARTRIDGE IVPUSH ×4 (08:43→21:32)
[2023-08-24] MEDS: Omeprazole 20 MG CAPSULE.DR PO ×2 (08:44→20:04)
[2023-08-24] MEDS: hydrALAZINE HCl 25 MG TABLET 75 MG PO ×3 (08:44→16:35)
[2023-08-24] MEDS: Brimonidine Tartrate 0.2% Oph 5 ML BOTTLE 2 DROP EYE-BOTH ×2 (08:44→20:06)
[2023-08-24] MEDS: 0.9 % Sodium Chloride Flush 3 ML SYRINGE IVFLUSH ×2 (08:44→16:35)
[2023-08-24] MEDS: Multivitamin TABLET 1 TAB PO (08:44)
[2023-08-24] MEDS: cloNIDine HCL 0.2 MG TABLET PO ×3 (08:44→16:35)
[2023-08-24] MEDS: carvediloL 25 MG TABLET PO ×2 (08:44→20:04)
[2023-08-24] MEDS: Docusate Sodium 100 MG CAPSULE PO ×2 (08:44→20:03)
[2023-08-24] MEDS: Isosorbide Mononitrate 60 MG TAB.ER.24H PO (08:44)
[2023-08-24] MEDS: Sucralfate 1 GM TABLET PO ×2 (08:44→16:34)
--- NOTE | 2023-08-24 09:06 | MHC.CM.PN ---
IMM 08/24. Pt is a LTC resident of [facility] (mandated to stay via parole department), plan is to return there [facility] when medically cleared. Pt has HD on and uses 3L O2 at baseline. HCP on file and verified. PCP: Dr. Rasta Guerrero
--- NOTE | 2023-08-24 09:18 | PM.PNNEP ---
Subjective Subjective Date of Service: 08/24/23 Interval history: Pt seen on HD Feels better now Physical Exam Vital Signs: Vital Signs: Last Vital Signs Temp 97.2 F 08/24/23 07:18 Pulse 76 08/24/23 07:18 Resp 20 08/24/23 07:18 BP 170/72 H 08/24/23 07:18 Pulse Ox 100 08/24/23 07:18 O2 Del Method Nasal Cannula 08/24/23 07:18 O2 Flow Rate 3 08/24/23 07:18 Oxygen Flow Rate 3 08/23/23 06:53 BMI result Body Mass Index 67.4 Appearing in no acute distress head is normocephalic atraumatic eyes pupils are PERRLA sclera is anicteric mouth throat mucous membranes are intact and moist neck is supple no lymphadenopathy, no JVD noted lung sounds are clear to auscultation heart regular rate rhythm, clear S1, S2 positive bowel sounds, abdomen is soft, nontender neuro patient is alert x3, no focal deficits Bilat AKA Objective Data Labs 08/23/23 07:17 08/23/23 07:17 Labs: Laboratory Results - last 24 hr 08/23/23 08/23/23 10:13 10:23 Troponin I High Sens 26.3 Influenza Type A (PCR) NEGATIVE Influenza Type B (PCR) NEGATIVE RSV RNA Qual (PCR) NEGATIVE SARS-CoV-2 RNA (RT-PCR) NEGATIVE Procedures Date of Service Date of Service: 08/24/23 Assessment & Plan Assessment and plan (1) End stage chronic kidney disease: Status: Acute (2) Acute hypoxemic respiratory failure: Status: Acute (3) Hypertensive emergency: Status: Acute (4) Ischemic cardiomyopathy: Status: Inactive (5) Hypertensive crisis: Status: Resolved (6) Pancytopenia: Status: Resolved Plan 67 yo AA man with ESRD in the setting of HTN and type II DM and PAD admitted with SOB on 1. ESRD: HD this am and gume well--askng to go home On HD [facility] - [facility] - Kidney care pt 2. HTN: controlled now 3. Ane melissa: Hb stable Other w/u as per medical team Time Spent With Patient Time: Total time managing care of this patient today ____ minutes. Progress Note: Quality Stroke Does the patient have a stroke diagnosis?: No
--- NOTE | 2023-08-24 14:51 | P.DS_ITS ---
DS: Providers Provider Date of Service: 08/25/23 Date of admission: 08/23/23 10:49 Date of discharge: 08/25/23 Primary care physician: JOHNATHAN REYNOSO Consults: 08/23/23 10:52 Consult to Nephrology Routine Consulting Provider: [facility] Reason for consultation: ESRD Has provider been notified: Yes DS: Diagnosis Discharge Diagnosis (1) End stage chronic kidney disease: Status: Acute (2) Acute hypoxemic respiratory failure: Status: Acute (3) Hypertensive emergency: Status: Acute (4) Ischemic cardiomyopathy: Status: Inactive (5) Hypertensive crisis: Status: Resolved (6) Pancytopenia: Status: Resolved DS: Summary Hospital Course Hospital Course: 67-year-old male history of end-stage kidney disease (on HD MWF last session thursday) , CAD, anemia, acute hypoxic respiratory failure, pancytopenia, pulmonary edema, ischemic cardiomyopathy presenting to the emergency department for complaints of substernal chest pain, shortness of breath ongoing for the past 3 hours. Patient reports that this started suddenly, chest pain in the substernal region, nonradiating, describes it as constant, stabbing. Shortness of breath at rest and with exertion. Patient wears 3 L nasal cannula at baseline however was moved up to 4 L, according to EMS patient received nitroglycerin, this provided little relief to patient, and he has been saturating 95-97% EN route. He has aspirin allergy. Aspirin is not given. EMS also reported carbon dioxide levels in the facility were 11, however there unsure if this is a faulty read. Patient denies fevers, chills, recent sick contacts, cough, nausea, vomiting, abdominal pain, headache, vision changes, dizziness and weakness. ER Course Shortness of breath increased requiring BiPAP. Patient's x-ray consistent with acute CHF; was due for dialysis tomorrow Renal contacted dialysis will be done for today. Aggressive blood pressure control was achieved and patient was able to be removed from BiPAP. Repeat dialysis done 08/24 and tolerated well. Patient was restarted on normal medicines and blood pressure was well controlled. At this point in time is medically acceptable to discharge back to long-term care Quality: Safe Use of Opioids Does Pt have an Active Cancer Diagnosis on the Problem List?: No Quality: Stroke Does the patient have a stroke diagnosis?: No Physical Exam Vital Signs: Vital Signs: Last Vital Signs Temp 97.3 F 08/24/23 12:00 Pulse 75 08/24/23 12:00 Resp 18 08/24/23 12:00 BP 121/58 L 08/24/23 12:58 Pulse Ox 100 08/24/23 12:00 O2 Del Method Nasal Cannula 08/24/23 12:00 O2 Flow Rate 2.5 08/24/23 12:00 Oxygen Flow Rate 3 08/23/23 06:53 BMI result Body Mass Index 67.4 Const: Other: Awake alert no acute distress. Breathing effortlessly on nasal cannula Resp: Other: Diminished at bases with bilateral basilar crackles Cardio: Other: No S4; positive S1-S2; no S3 murmurs rubs or gallops GI: Other: Soft nontender nondistended normoactive bowel sounds Extrem: Other: Bilateral BKA DS: Data Data Completed and Pending Completed studies during hospitalization [Text1]: Procedures Insertion of Endotracheal Airway into Trachea, Via Natural or Artificial Opening (05/23/22) Insertion of Infusion Device into Superior Vena Cava, Percutaneous Approach (05/23/22) Performance of Urinary Filtration, Intermittent, Less than 6 Hours Per Day (09/06/22) Respiratory Ventilation, Less than 24 Consecutive Hours (05/23/22) Transfusion of Nonautologous Red Blood Cells into Peripheral Vein, Percutaneous Approach (09/06/22) Ultrasonography of Superior Vena Cava, Guidance (05/23/22) Labs on day of discharge: Preliminary micro results at discharge 08/23/23 07:59 Blood Culture - Preliminary Blood - Venous No growth after 24 hours. 08/23/23 07:17 Blood Culture - Preliminary Blood - Venous No growth after 24 hours. Discharge Plan Discharge Patient Disposition: Xfer [facility] Discharge Diagnosis: Acute systolic congestive heart failure Referrals: JOHNATHAN REYNOSO [Primary Care Provider] - 1 Week Discharge Medications: Continued levothyroxine 200 mcg Tablet 200 mcg PO BEDTIME cholecalciferol (vitamin D3) 1,250 mcg (50,000 unit) Capsule 1,250 mcg PO QMONTH Rx Instructions: Every month on the brimonidine 0.2 % Drops 2 drp OPHTHALMIC (EYE) BID clonidine HCl 0.2 mg Tablet 0.2 mg PO TID@0900,1300,1700 Protocol: Hold for SBP< HOLD for SBP < : 110 pantoprazole 40 mg Tablet,Delayed Release (Dr/Ec) 40 mg PO BID docusate sodium 100 mg Capsule 100 mg PO BID vitamin B complex Tablet 1 tab PO DAILY atorvastatin 40 mg tablet 40 mg PO BEDTIME carvedilol 25 mg tablet 25 mg PO BID nifedipine 90 mg tablet extended release 90 mg PO BID@0400,1700 isosorbide mononitrate 60 mg tablet extended release 24 hr 60 mg PO DAILY Protocol: Hold for SBP< HOLD for SBP < : 100 pregabalin 50 mg capsule 50 mg PO BEDTIME hydralazine 25 mg Tablet 25 mg PO Q8H PRN (Reason: SBP >170) hydralazine 50 mg tablet 75 mg PO TID@0900,1300,1700 Protocol: Hold for SBP< HOLD for SBP < : 140 sucralfate 1 gram tablet 1 g PO BID@0900,1700 sennosides [senna] 8.6 mg Tablet 8.6 mg PO Q12H PRN (Reason: Constipation) Stand Alone Forms: Patient Portal Discharge page Care Plan Goals: Resume all pre-hospital medications and therapies Health Concerns: Resume Thursday dialysis routine as outpatient Plan of Treatment: Follow-up with nephrology as scheduled. Further management as per receiving facility Assessment: See discharge summary
--- NOTE | 2023-08-24 14:54 | P.PNIM_ITS ---
Subjective Subjective Date of Service: 08/24/23 Interval History: Doing well after dialysis. Pressure is well control Review of Systems Admitted chest pain Admit shortness of breath at rest Denies nausea vomiting diarrhea Denies fever chills Physical Exam 2 Vital Signs: Vital Signs: Last Vital Signs Temp 97.3 F 08/24/23 12:00 Pulse 75 08/24/23 12:00 Resp 18 08/24/23 12:00 BP 121/58 L 08/24/23 12:58 Pulse Ox 100 08/24/23 12:00 O2 Del Method Nasal Cannula 08/24/23 12:00 O2 Flow Rate 2.5 08/24/23 12:00 Oxygen Flow Rate 3 08/23/23 06:53 BMI result Body Mass Index 67.4 Const: Other: Awake alert no acute distress. Breathing effortlessly on nasal cannula Resp: Other: Diminished at bases with bilateral basilar crackles Cardio: Other: No S4; positive S1-S2; no S3 murmurs rubs or gallops GI: Other: Soft nontender nondistended normoactive bowel sounds Extrem: Other: Bilateral BKA Objective Data Active Medications Atorvastatin Calcium (Atorvastatin Calcium 40 Mg Tablet) 40 mg PO BEDTIME PENDING SALE TO [facility] Last Admin: 08/23/23 20:21 Dose: 40 mg Documented By: RAFA Brimonidine Tartrate (Brimonidine Tartrate 0.2% Oph 5 Ml Bottle) 2 drop EYE- BOTH BID PENDING SALE TO [facility] Last Admin: 08/24/23 08:44 Dose: 2 drop Documented By: BRITTANY Carvedilol (Carvedilol 25 Mg Tablet) 25 mg PO BID PENDING SALE TO [facility]; Protocol Last Admin: 08/24/23 08:44 Dose: 25 mg Documented By: BRITTANY Clonidine HCl (Clonidine Hcl 0.2 Mg Tablet) 0.2 mg PO TID@0900,1300,1700 PENDING SALE TO [facility]; Protocol Last Admin: 08/24/23 12:55 Dose: 0.2 mg Documented By: BRITTANY Docusate Sodium (Docusate Sodium 100 Mg Capsule) 100 mg PO BID PENDING SALE TO [facility] Last Admin: 08/24/23 08:44 Dose: 100 mg Documented By: BRITTANY Heparin Sodium (Porcine) (Heparin Sodium,Porcine 5,000 Unit/Ml Vial) 5,000 unit SUBCUT Q12H PENDING SALE TO [facility] Last Admin: 08/24/23 13:01 Dose: Not Given Documented By: BRITTANY Non-Admin Reason: Patient Refused Hydralazine HCl (Hydralazine Hcl 25 Mg Tablet) 25 mg PO Q8H PRN; Protocol PRN Reason: SBP >170 Last Admin: 08/23/23 22:50 Dose: 25 mg Documented By: RAFA Hydralazine HCl (Hydralazine Hcl 25 Mg Tablet) 75 mg PO TID@0900,1300,1700 PENDING SALE TO [facility]; Protocol Last Admin: 08/24/23 12:55 Dose: 75 mg Documented By: BRITTANY Isosorbide Mononitrate (Isosorbide Mononitrate 60 Mg Tab.Er.24h) 60 mg PO DAILY PENDING SALE TO [facility]; Protocol Last Admin: 08/24/23 08:44 Dose: 60 mg Documented By: BRITTANY Levothyroxine Sodium (Levothyroxine Sodium 200 Mcg Tablet) 200 mcg PO BEDTIME PENDING SALE TO [facility] Last Admin: 08/23/23 20:23 Dose: 200 mcg Documented By: RAFA Morphine Sulfate (Morphine Sulfate 4 Mg/Ml Cartridge) 4 mg IVPUSH Q4H PRN; Protocol PRN Reason: Pain, Severe (Pain Scale 7-10) Last Admin: 08/24/23 12:55 Dose: 4 mg Documented By: BRITTANY Multivitamins/Vitamin C (Multivitamin Tablet) 1 tab PO DAILY PENDING SALE TO [facility] Last Admin: 08/24/23 08:44 Dose: 1 tab Documented By: BRITTANY Nifedipine (Nifedipine Er 90 Mg Tab.Er.24) 90 mg PO BID@0400,1700 PENDING SALE TO [facility] Last Admin: 08/24/23 05:43 Dose: 90 mg Documented By: RAFA Comments: per Dr. Price, give med now. 157/49 hr 68 Pt. received 1700 dose of Nifedipine 90mg ER at 20:[address] Price. Omeprazole (Omeprazole 20 Mg Capsule.) 20 mg PO BID PENDING SALE TO [facility] Last Admin: 08/24/23 08:44 Dose: 20 mg Documented By: BRITTANY Pregabalin (Pregabalin 50 Mg Capsule) 50 mg PO BEDTIME PENDING SALE TO [facility] Last Admin: 08/23/23 20:23 Dose: 50 mg Documented By: RAFA Senna (Sennosides 8.6 Mg Tablet) 8.6 mg PO Q12H PRN PRN Reason: Constipation Sodium Chloride (0.9 % Sodium Chloride Flush 3 Ml Syringe) 3 ml IVFLUSH QSHIFT PENDING SALE TO [facility] Last Admin: 08/24/23 08:44 Dose: 3 ml Documented By: BRITTANY Sucralfate (Sucralfate 1 Gm Tablet) 1 gm PO BID@0900,1700 PENDING SALE TO [facility] Last Admin: 08/24/23 08:44 Dose: 1 gm Documented By: BRITTANY Labs 08/23/23 07:17 08/23/23 07:17 Microbiology Microbiology Results: Microbiology 08/23/23 07:59 Blood Culture - Preliminary Blood - Venous No growth after 24 hours. 08/23/23 07:17 Blood Culture - Preliminary Blood - Venous No growth after 24 hours. Assessment and Plan (1) Acute systolic congestive heart failure: Status: Acute (2) Hypertensive emergency: Status: Acute Plan 67-year-old male with known history of end-stage renal disease on hemodialysis presents with acute onset of shortness of breath chest pain. In the emergency room he was found to be hypoxic and placed on rescue BiPAP. He was noted to have blood pressures in the 210/120 range; these were treated aggressively and BiPAP was able to be removed. Nephrology was consulted and patient will receive dialysis urgently today. 1.Acute systolic CHF -last echo 04/2022 demonstrated LVEF 20-25% -aggressive afterload reduction after hemodialysis -continue outpatient therapies and adjust as indicated 2. Acute hypoxic respiratory failure secondary to 1. 3. Hypertension (chronic) with hypertensive emergency -responded to therapies -good response to hemodialysis -resume all outpatient therapies and adjust as indicated -follow renals/divalents Heparin Full code Patient will require ongoing hospitalization for emergent hemodialysis and treatment of acute systolic heart failure. This cannot be achieved a lesser acute setting Quality Stroke Does the patient have a stroke diagnosis?: No VTE Prior VTE?: No VTE Risk Level:: Medical - moderate - high VTE Device Contraindication: Treatment Not Indicated VTE Drug Contraindication: N/A - Med Ordered
[2023-08-24] MEDS: Atorvastatin Calcium 40 MG TABLET PO (20:03)
[2023-08-24] MEDS: Pregabalin 50 MG CAPSULE PO (20:03)
[2023-08-24] MEDS: Levothyroxine Sodium 200 MCG TABLET PO (20:04)
[2023-08-25] VITALS (9 sets, daily range): BP systolic 73–138; BP diastolic 35–67; PULSE 61–70; RESP 18–20; TEMP 36.2–36.6; O2SAT 97–100
--- NOTE | 2023-08-25 | ECG_ITS ---
Test Reason : cp Blood Pressure : / mmHG Vent. Rate : 061 BPM Atrial Rate : 061 BPM P-R Int : 182 ms QRS Dur : 078 ms QT Int : 438 ms P-R-T Axes : 038 -20 023 degrees QTc Int : 440 ms Normal sinus rhythm Nonspecific T wave abnormality Abnormal ECG When compared with ECG of 23-AUG-2023 06:43, Nonspecific T wave abnormality has replaced inverted T waves in Inferior leads Nonspecific T wave abnormality has replaced inverted T waves in Lateral leads Heart rate has decreased Referred By: Anju Acosta Electronically Signed By:HÉCTOR ZUNIGA MD
--- NOTE | 2023-08-25 | ECG_ITS ---
Test Reason : sob Blood Pressure : / mmHG Vent. Rate : 061 BPM Atrial Rate : 061 BPM P-R Int : 200 ms QRS Dur : 074 ms QT Int : 444 ms P-R-T Axes : 029 -07 -01 degrees QTc Int : 446 ms Normal sinus rhythm Nonspecific T wave abnormality Abnormal ECG When compared with ECG of 25-AUG-2023 10:35, No significant changes seen Referred By: Anju Acosta Electronically Signed By:HÉCTOR ZUNIGA MD
[2023-08-25] MEDS: 0.9 % Sodium Chloride Flush 3 ML SYRINGE IVFLUSH ×3 (01:31→17:13)
[2023-08-25] MEDS: Morphine Sulfate 4 MG/ML CARTRIDGE IVPUSH ×3 (01:51→10:27)
[2023-08-25] MEDS: NIFEdipine ER 90 MG TAB.ER.24 PO (04:00)
[2023-08-25] MEDS: cloNIDine HCL 0.2 MG TABLET PO (08:14)
[2023-08-25] MEDS: Sucralfate 1 GM TABLET PO ×2 (08:14→17:13)
[2023-08-25] MEDS: Omeprazole 20 MG CAPSULE.DR PO ×2 (08:14→22:04)
[2023-08-25] MEDS: Multivitamin TABLET 1 TAB PO (08:14)
[2023-08-25] MEDS: Docusate Sodium 100 MG CAPSULE PO ×2 (08:14→22:04)
[2023-08-25] MEDS: Isosorbide Mononitrate 60 MG TAB.ER.24H PO (08:14)
[2023-08-25] MEDS: hydrALAZINE HCl 25 MG TABLET 75 MG PO (08:15)
[2023-08-25] MEDS: carvediloL 25 MG TABLET PO (08:15)
[2023-08-25] MEDS: Brimonidine Tartrate 0.2% Oph 5 ML BOTTLE 2 DROP EYE-BOTH ×2 (08:17→22:04)
--- NOTE | 2023-08-25 08:49 | P.CDIM_ITS ---
PROVIDER RESPONSE TEXT: To clarify, the appropriate diagnosis supported by the clinical indicators: Obesity Due to excess calories QUERY TEXT: PHYSICIAN'S DOCUMENTATION REQUEST Date of Query: 08/24/2023 08:22 AM EST Patient Name: Clinton Small Admit Date: 08/23/2023 Dear Erickson Pitts, A review of the medical record indicates additional documentation may be needed. Please review below and update the documentation accordingly. Clinical Indicators: Nursing notes for Height and Weight: BMI 67.4 Extreme obesity class III If possible, please provide an associated diagnosis related to the abnormal BMI, such as: Obesity Due to excess calories Obesity Due to other cause Specify the other cause Severe or Morbid Obesity With alveolar hypoventilation Severe or Morbid Obesity Without alveolar hypoventilation Other (explain) Clinically unable to determine (explain) Thank you, Ellyn Amezcua, CCS, CDIS Use of terms such as suspected, likely, concern for, or probable (associated with a specific diagnosi s that is being evaluated, monitored, or treated as if it exists) are acceptable and can be coded in the inpatient se tting, when documented at the time of discharge. Please use your independent medical judgment in providing your response. THIS QUERY IS PART OF THE PERMANENT MEDICAL RECORD
[2023-08-25] MEDS: Heparin Sodium,Porcine 5,000 UNIT/ML VIAL 5000 UNIT SUBCUT (10:29)
--- NOTE | 2023-08-25 10:51 | P.PNNP_ITS ---
Subjective Subjective Date of Service: 08/25/23 Interval history: Had dialysisx 2 since admission 2 L Vol removal yesterday Physical Exam 2 Vital Signs: Vital Signs: Last Vital Signs Temp 97.2 F 08/25/23 07:47 Pulse 68 08/25/23 07:47 Resp 20 08/25/23 07:47 BP 124/55 L 08/25/23 07:47 Pulse Ox 100 08/25/23 07:47 O2 Del Method Nasal Cannula 08/25/23 07:47 O2 Flow Rate 3 08/25/23 07:47 Oxygen Flow Rate 3 08/23/23 06:53 BMI result Body Mass Index 67.4 Const: Other: Awake alert no acute distress. Breathing effortlessly on nasal cannula Resp: Other: Diminished at bases with bilateral basilar crackles Cardio: Other: No S4; positive S1-S2; no S3 murmurs rubs or gallops GI: Other: Soft nontender nondistended normoactive bowel sounds Extrem: Other: Bilateral BKA Objective Data Labs 08/23/23 07:17 08/23/23 07:17 Microbiology Microbiology Results: Microbiology 08/23/23 07:59 Blood - Venous Blood Culture - Preliminary No growth after 48 hours. 08/23/23 07:17 Blood - Venous Blood Culture - Preliminary No growth after 48 hours. Procedures Date of Service Date of Service: 08/25/23 Assessment & Plan Assessment and plan (1) End stage chronic kidney disease: Status: Acute (2) Acute hypoxemic respiratory failure: Status: Acute (3) Hypertensive emergency: Status: Acute (4) Ischemic cardiomyopathy: Status: Inactive (5) Hypertensive crisis: Status: Resolved (6) Pancytopenia: Status: Resolved Plan 67 yo AA man with ESRD in the setting of HTN and type II DM and PAD admitted with SOB on 1. ESRD: HD On HD [facility] - [facility] - Kidney care pt 2. HTN: controlled now 3. Ane melissa: Hb stable SOB - doubt volume issues - Cardiology eval Other w/u as per medical team Time Spent With Patient Time: Total time managing care of this patient today ____ minutes. Progress Note: Quality Stroke Does the patient have a stroke diagnosis?: No
[2023-08-25 11:27] LABS: Glucose, Whole Blood 97 mg/dL (60-115)
--- NOTE | 2023-08-25 13:01 | CONS_ITS ---
DATE OF SERVICE: 08/24/2023 REASON FOR CONSULTATION: Consult requested by the medical team to evaluate and help in management of patient with end-stage renal disease, presents with shortness of breath. The patient is a 67-year-old male, who gets dialyzed on Thursday, Thursday, Thursday at [facility], history of coronary artery disease, anemia, history of respiratory failure in the past, peripheral vascular disease, who presents to the emergency room, complains of shortness of breath which has been going on for 3 days. He also had chest pain which is substernal, nonradiating. He was wearing 3 L nasal cannula in the ER, which is up and EMS gave him nitroglycerin, which provided relief. His saturation 95% to 97% on EN route to the ER. Aspirin was not given as he had aspirin allergies. He did not have any fever, chills, recent sick contacts, cough, nausea, vomiting, abdominal pain, headache, vision changes, dizziness, weakness. In the ER, the patient was placed on a BiPAP. X-ray showed a significant volume overload/CHF and my associate Dr. Camarena was contacted. He did have ultrafiltration with improvement and BiPAP has been removed. At the present time, he is sitting up in the bed and is feeling better. No chest pain. He wants to go home. REVIEW OF SYSTEMS: As noted above. Other systems are reviewed, negative. PAST MEDICAL HISTORY: History of ESRD, on hemodialysis, on Thursday, Thursday, Thursday, followed up by [facility], but we have seen the patient in the hospital in the past, history of coronary artery disease, anemia, acute hypoxemic respiratory failure, pancytopenia, history of pulmonary edema, ischemic cardiomyopathy. Peripheral vascular disease, bilateral above knee amputation, history of MO, anemia. PAST SURGICAL HISTORY: Include bilateral above-knee amputation and AV graft placement. PERSONAL/SOCIAL HISTORY: Patient in a residential facility, was a former cigarette smoker who quit 20 years ago. Does not use drugs or use significant alcohol. ALLERGIES: PATIENT HAS ALLERGIES TO BEE POLLEN AND LISINOPRIL. MEDICATIONS: As an outpatient, patient reviewed in detail. PHYSICAL EXAMINATION: GENERAL: Patient is resting in the bed. Awake, alert, oriented x3. VITAL SIGNS: Blood pressure was 172/72, pulse is 82, afebrile. HEENT: Shows pupils equal, round, reactive bilaterally. NECK: No jugular venous distention is noted. Neck was supple. No thyromegaly is noted. Mucosa moist. There is no scleral icterus. Conjunctival congestion. CARDIOVASCULAR SYSTEM: S1, S2 without rub. RESPIRATORY SYSTEM: Mildly decreased in bases. Few basilar crepitation. ABDOMEN: Soft, nontender. Bowel sounds normal. EXTREMITIES: Showed bilateral BKA. LABORATORY DATA: Done today. There are no new labs today. Labs done from yesterday were reviewed. Sodium 143, potassium 4.6, chloride 104, CO2 27, BUN 33, creatinine 8.15. BNP 1348, albumin 3.9. Hemoglobin was 8.0, hematocrit 26.3, WBC is 5.2, platelets 84. IMPRESSION: A 67-year-old male with: 1. End-stage renal disease, on hemodialysis, with acute shortness of breath/acute systolic congestive heart failure. 2. Acute hypoxemic respiratory failure. 3. Hypertension with hypertensive emergency in the setting of volume overload. 4. Anemia of chronic disease. 5. Chest pain, which is being evaluated. RECOMMENDATIONS: The patient will be dialyzed today in the inpatient dialysis unit. We will try to remove fluid as tolerated. Orders for dialysis has been given. Potassium bath per protocol. No chest pain. Workup as per medical team. Continue with his present antihypertensive regimen. Also recommend continuation of his phosphate binders. Thank you for allowing me to participate in medical management of the patient. MD NICOLE Gamble/LAKESHIA / [phone]
[2023-08-25 13:35] LABS: Hematocrit 21.6 % (42.0-52.0)
[2023-08-25 13:54] LABS: Anion Gap 12 (12-20); Blood Urea Nitrogen 23 mg/dL (9-16); Calcium 8.7 mg/dL (8.4-10.2); Carbon Dioxide 26 mmol/L (22-29); Chloride 101 mmol/L (96-108); Creatinine Clr Calc Pharmacy 3.3; Estimated Glomerular Filt Rate 10; Glucose Random 102 mg/dL (60-115); Hemoglobin 6.7 g/dl (14.0-18.0); Potassium 4.4 mmol/L (3.3-5.1); Sodium 135 mmol/L (135-145)
[2023-08-25] MEDS: Acetaminophen 325 MG TABLET 650 MG PO ×2 (14:00→18:23)
[2023-08-25 14:29] LABS: Platelet Count 86 X10*3/uL (160-400)
--- NOTE | 2023-08-25 15:15 | CA_ITS ---
Acquisition Time: 2023-08-26 11:32:03 Total Exercise Time: 00:02:00 Test Indications: Chest Pain Medications: SEE EMAR Protocol: LEXISCAN Max HR: 097 BPM 63% of Pred: 153 BPM Max BP: 162/062 mmHG Max Work Load: 1.0 METS Pharmacologica stress test with Lexiscan injection while laying on treadmill, with mild SOB, no chest discomfort, without arrhythmias, with downloping in V4-V6. Aminophylline 75mg IVP given to reverse Lexiscan. Test reviewed with Dr. Ramos Referred By: Gary Ramos Overread By: Ana Draper
--- NOTE | 2023-08-25 15:21 | P.CONCA_ITS ---
History of Present Illness History of Present Illness Date of Service: 08/25/23 Requesting physician: Anju Acosta Consult reason: chest pain and congestive heart failure Chief complaint: Acute Exacerbation of Systolic Heart Failure Narrative: I was consulted to see [place] in cardiology consultation today as he continued to have shortness of breath as per Nephrology and continued to have chest pain which is left-sided. However patient says he has had chest pain for a long time and is persistently present almost all the time. He is requesting pain medications for the same. 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 Recurrent hospitalization with heart failure. 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 Patient came to the hospital 2 days ago with acute chest pain with shortness of breath and noted to be in pulmonary edema with hypertensive urgency. He then underwent ultrafiltration emergently in the emergency room yesterday underwent his regular hemodialysis. He swears that he takes all his medication has been given his medications at the care home facility that he lives in. However he was restarted on all his medications and when I was interviewing and stepped out of the room for few minutes and came back in he was very lightheaded and feel tired and felt like he was going to pass out and passed out. We measured his systolic blood pressure at that time and systolic blood pressure 70 with heart rate of 57-61 in sinus rhythm with normal oxygenation. He was then laid in the supine position and given adequate bolus of IV fluid with gradual improvement in blood pressure and his consciousness. Rapid response was called at that time. I was at patient's bedside for 30 minutes. Patient continues to have this atypical chest pain. EKG repeated during this episode did not show any significant ischemic changes. His troponins on admissions are within normal limits. Review of Systems 2 Constitutional: Constitutional: Reports no additional constitutional complaints Eyes: Eyes: Reports no additional eye complaints Cardiovascular: Cardiovascular: Reports chest pain at rest, Denies rapid heart rate, Reports Loss of Consciousness, Denies palpitations and Reports dyspnea Respiratory: Respiratory: Reports no additional respiratory complaints and Reports dyspnea Gastrointestinal: Gastrointestinal: Reports no additional gastrointestinal complaints Musculoskeletal: Musculoskeletal: Reports no additional musculoskeletal complaints Neurologic: Reports system reviewed and no additional complaints, except as documented Endocrine: Endocrine: Reports no additional endocrine complaints and Denies palpitations [facility] Past Medical History Medical History 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 Myocardial infarction involving left anterior descending (LAD) coronary artery Ischemic cardiomyopathy CKD (chronic kidney disease) requiring chronic dialysis Anemia Essential hypertension End stage chronic kidney disease Social History Social History Household Members: Other Household Members Other:: [facility] Housing: Assisted Living Facility Housing Other:: [facility] Do you presently have visiting nurse or other home services: Yes (assisted living facility) Unable to assess alcohol history related to: Unable to respond Alcohol intake: former Patient Tobacco Use Status: Former Tobacco user Quit Date: 20 YEARS AGO Tobacco use type: Cigarette Years Smoked: 20 e-Cigarette/Vaping Use: Never Used Second Hand Smoke Exposure: No Substance Use Type: Marijuana Advance Directives Date on File: 05/26/22 service: No Meds Allergies Allergy/AdvReac Type Severity Reaction Status Date / Time bee pollen [bee stings] Allergy Angioedema Verified 09/06/22 01:36 lisinopril Allergy Cough Verified 09/06/22 01:35 Active Medications: Current Medications Acetaminophen (Acetaminophen 325 Mg Tablet) 650 mg PO Q6H PRN PRN Reason: pain or fever Atorvastatin Calcium (Atorvastatin Calcium 40 Mg Tablet) 40 mg PO BEDTIME [facility] Last Admin: 08/24/23 20:03 Dose: 40 mg Brimonidine Tartrate (Brimonidine Tartrate 0.2% Oph 5 Ml Bottle) 2 drop EYE- BOTH BID [facility] Last Admin: 08/25/23 08:17 Dose: 2 drop Clonidine HCl (Clonidine Hcl 0.2 Mg Tablet) 0.2 mg PO TID@0900,1300,1700 [facility]; Protocol Last Admin: 08/25/23 08:14 Dose: 0.2 mg Docusate Sodium (Docusate Sodium 100 Mg Capsule) 100 mg PO BID [facility] Last Admin: 08/25/23 08:14 Dose: 100 mg Heparin Sodium (Porcine) (Heparin Sodium,Porcine 5,000 Unit/Ml Vial) 5,000 unit SUBCUT Q12H [facility] Last Admin: 08/25/23 10:29 Dose: 5,000 unit Hydralazine HCl (Hydralazine Hcl 25 Mg Tablet) 25 mg PO Q8H PRN; Protocol PRN Reason: SBP >170 Last Admin: 08/23/23 22:50 Dose: 25 mg Hydralazine HCl (Hydralazine Hcl 25 Mg Tablet) 75 mg PO TID@0900,1300,1700 [facility]; Protocol Last Admin: 08/25/23 08:15 Dose: 75 mg Isosorbide Mononitrate (Isosorbide Mononitrate 60 Mg Tab.Er.24h) 60 mg PO DAILY [facility]; Protocol Last Admin: 08/25/23 08:14 Dose: 60 mg Levothyroxine Sodium (Levothyroxine Sodium 200 Mcg Tablet) 200 mcg PO BEDTIME [facility] Last Admin: 08/24/23 20:04 Dose: 200 mcg Multivitamins/Vitamin C (Multivitamin Tablet) 1 tab PO DAILY [facility] Last Admin: 08/25/23 08:14 Dose: 1 tab Nifedipine (Nifedipine Er 90 Mg Tab.Er.24) 90 mg PO BID@0400,1700 [facility] Last Admin: 08/25/23 04:00 Dose: 90 mg Omeprazole (Omeprazole 20 Mg Capsule.Dr) 20 mg PO BID [facility] Last Admin: 08/25/23 08:14 Dose: 20 mg Pregabalin (Pregabalin 50 Mg Capsule) 50 mg PO BEDTIME [facility] Last Admin: 08/24/23 20:03 Dose: 50 mg Senna (Sennosides 8.6 Mg Tablet) 8.6 mg PO Q12H PRN PRN Reason: Constipation Sodium Chloride (0.9 % Sodium Chloride Flush 3 Ml Syringe) 3 ml IVFLUSH QSHIFT [facility] Last Admin: 08/25/23 08:15 Dose: 3 ml Sucralfate (Sucralfate 1 Gm Tablet) 1 gm PO BID@0900,1700 [facility] Last Admin: 08/25/23 08:14 Dose: 1 gm Home Medications Medication Instructions Recorded Confirmed Last Taken Type brimonidine 0.2 % eye drops 2 drp ophthalmic (eye) BID 05/23/22 08/23/23 09/05/22 History clonidine HCl 0.2 mg tablet 0.2 mg PO TID@0900,1300,1700 05/23/22 08/23/23 09/05/22 History docusate sodium 100 mg capsule 100 mg PO BID 05/23/22 08/23/23 09/05/22 History pantoprazole 40 mg tablet,delayed 40 mg PO BID 05/23/22 08/23/23 09/05/22 History release vitamin B complex 1 tab PO DAILY 05/23/22 08/23/23 09/05/22 History cholecalciferol (vitamin D3) 1,250 1,250 mcg PO QMONTH 08/23/22 08/23/23 08/10/23 History mcg (50,000 unit) capsule levothyroxine 200 mcg tablet 200 mcg PO BEDTIME 08/23/22 08/23/23 09/05/22 History atorvastatin 40 mg tablet 40 mg PO BEDTIME 08/23/23 08/23/23 Unknown History carvedilol 25 mg tablet 25 mg PO BID 08/23/23 08/23/23 Unknown History hydralazine 25 mg tablet 25 mg PO Q8H PRN SBP >170 08/23/23 08/23/23 Unknown History hydralazine 50 mg tablet 75 mg PO TID@0900,1300,1700 08/23/23 08/23/23 Unknown History isosorbide mononitrate 60 mg 60 mg PO DAILY 08/23/23 08/23/23 Unknown History tablet,extended release 24 hr nifedipine 90 mg tablet,extended 90 mg PO BID@0400,1700 08/23/23 08/23/23 Unknown History release pregabalin 50 mg capsule 50 mg PO BEDTIME 08/23/23 08/23/23 Unknown History sennosides 8.6 mg tablet (senna) 8.6 mg PO Q12H PRN Constipation 08/23/23 08/23/23 Unknown History sucralfate 1 gram tablet 1 g PO BID@0900,1700 08/23/23 08/23/23 Unknown History Physical Exam 2 Vital Signs: Vital Signs: Last Vital Signs Temp 97.2 F 08/25/23 11:13 Pulse 61 08/25/23 12:45 Resp 18 08/25/23 12:45 BP 91/47 L 08/25/23 12:45 Pulse Ox 100 08/25/23 12:45 O2 Del Method Nasal Cannula 08/25/23 12:45 O2 Flow Rate 3 08/25/23 12:45 Oxygen Flow Rate 3 08/25/23 12:45 BMI result Body Mass Index Const: General: cooperative, comfortable, no acute distress, alert and awake Nutritional Appearance: average body habitus Orientation/consciousness: p atient oriented x3 HEENT: Head: Yes normocephalic and Yes atraumatic Neck: Neck: Yes trachea midline, Yes supple and Yes no JVD Resp: Effort & Inspection: normal respiratory effort Auscultation: clear to auscultation bilaterally Cardio: Jugular venous distension: no JVD Palpation: abnormal PMI displaced PMI Rate: regular rate Rhythm: regular rhythm Heart sounds: S1 normal heart sound present, S2 normal heart sound present, no click, no gallops, no murmurs and no rubs GI: Auscultation: normal bowel sounds Skin: General skin exam: no rashes or lesions noted Neuro: General: patient oriented x3 and no focal motor deficits Extrem: Other: Bilateral above knee amputation Objective Labs and Meds 08/25/23 13:16 08/25/23 13:16 Lab results: Laboratory Results - last 24 hr 08/25/23 08/25/23 08/25/23 11: 13:16 14:57 Hgb 6.7 L* Hct 21.6 L Plt Count 86 L Sodium 135 Potassium 4.4 Chloride 101 Carbon Dioxide 26 Anion Gap 12 BUN 23 H Creatinine 5.94 H* Estim Creat Clear Calc 3.3 Estimated GFR 10 POC Glucose 97 Random Glucose 102 Calcium 8.7 Troponin I High Sens 17.0 Crossmatch (AHG) See Detail EKG shows normal sinus rhythm with lateral ST T wave changes suggestive of repolarization abnormality, unchanged from before Assessment and Plan (1) Acute systolic congestive heart failure: Status: Acute Patient hospitalized with acute congestive in setting of hypertensive urgency associated with shortness of breath and chest discomfort. Although his chest discomfort is very atypical in nature. However presentation with acute heart failure in the setting of hypertension could be related to myocardial ischemia. This needs to be evaluated. If blood pressure remains stable suggest a vasodilating myocardial perfusion imaging to further assess for any significant myocardial ischemia that may benefit from further invasive strategy. Overall otherwise acute heart failure related to hypertensive urgency. This raises the question if patient has significant noncompliance with salt intake and/or medications. Although he is in a care home facility and says that he takes his medications regularly. Need to evaluate his social situation. See below for labile blood pressure. Clinically currently appears to be out of heart failure since to sessions of fluid removal 1 with ultrafiltration with hemodialysis. Continue current dry weight targets for hemodialysis. (2) Labile blood pressure: Status: Acute Patient admitted with marked hypertension and subsequently developed significant hypotension leading to syncopal episode with blood pressure in the systolic 70 range. This is probably suggestive of marked salt intake causing hypertensive urgency and/or medical noncompliance. Discussed with the patient any he swears that he gets his medications as prescribed at the care home facility. Question renal artery stenosis, although discuss this finding with Nephrology and given that he has longstanding anuric end-stage renal disease, suggesting nonfunctioning kidneys, renovascular hypertension is not likely. This is probably related to sudden fluid removal in the setting of diffuse and calcified vascular disease. Goal blood pressure should be systolic 140-150 without trying to corrective blood pressure to systolic 120 which may lead to hypotensive episodes. Hold his medications for now and slowly resume all other medications as planned. Avoidance of salt loading was discussed with the patient. Will follow with you. Greater than 45 minutes was spent at bedside Procedures Date of Service Date of Service: 08/25/23
--- NOTE | 2023-08-25 16:51 | P.PNIM_ITS ---
Subjective Subjective Date of Service: 08/25/23 Interval History: hypotension,near syncope, anemia Review of Systems ?ch. chest tightness Patient felt weak and was hypotensive and says possible episode near syncope No fever or chills or abdominal complaints or any urinary complaints. Physical Exam 2 Vital Signs: Vital Signs: Last Vital Signs Temp 97.4 F 08/25/23 16:00 Pulse 64 08/25/23 16:00 Resp 18 08/25/23 16:00 BP 102/64 08/25/23 16:00 Pulse Ox 100 08/25/23 16:00 O2 Del Method Nasal Cannula 08/25/23 16:00 O2 Flow Rate 3 08/25/23 16:00 Oxygen Flow Rate 3 08/25/23 12:45 BMI result Body Mass Index 67.4 Appearance: Alert.? Oriented X3.? cvs: rrr, [id number] , no murmur res: clear to auscultation ,no rhonchii or wheezing abd: no rebound or guarding ,nt, bs present. ext pulses present , no cyanosis . neuro: axo3 , nonfocal. Objective Data Active Medications Acetaminophen (Acetaminophen 325 Mg Tablet) 650 mg PO Q6H PRN PRN Reason: pain or fever Atorvastatin Calcium (Atorvastatin Calcium 40 Mg Tablet) 40 mg PO BEDTIME [facility] Last Admin: 08/24/23 20:03 Dose: 40 mg Documented By: UMAIR Brimonidine Tartrate (Brimonidine Tartrate 0.2% Oph 5 Ml Bottle) 2 drop EYE- BOTH BID [facility] Last Admin: 08/25/23 08:17 Dose: 2 drop Documented By: ELLI Clonidine HCl (Clonidine Hcl 0.2 Mg Tablet) 0.2 mg PO TID@0900,1300,1700 [facility]; Protocol Last Admin: 08/25/23 08:14 Dose: 0.2 mg Documented By: ELLI Docusate Sodium (Docusate Sodium 100 Mg Capsule) 100 mg PO BID [facility] Last Admin: 08/25/23 08:14 Dose: 100 mg Documented By: ELLI Heparin Sodium (Porcine) (Heparin Sodium,Porcine 5,000 Unit/Ml Vial) 5,000 unit SUBCUT Q12H [facility] Last Admin: 08/25/23 10:29 Dose: 5,000 unit Documented By: ELLI Hydralazine HCl (Hydralazine Hcl 25 Mg Tablet) 25 mg PO Q8H PRN; Protocol PRN Reason: SBP >170 Last Admin: 08/23/23 22:50 Dose: 25 mg Documented By: RAFA Hydralazine HCl (Hydralazine Hcl 25 Mg Tablet) 75 mg PO TID@0900,1300,1700 [facility]; Protocol Last Admin: 08/25/23 08:15 Dose: 75 mg Documented By: ELLI Isosorbide Mononitrate (Isosorbide Mononitrate 60 Mg Tab.Er.24h) 60 mg PO DAILY [facility]; Protocol Last Admin: 08/25/23 08:14 Dose: 60 mg Documented By: ELLI Levothyroxine Sodium (Levothyroxine Sodium 200 Mcg Tablet) 200 mcg PO BEDTIME [facility] Last Admin: 08/24/23 20:04 Dose: 200 mcg Documented By: UMAIR Multivitamins/Vitamin C (Multivitamin Tablet) 1 tab PO DAILY [facility] Last Admin: 08/25/23 08:14 Dose: 1 tab Documented By: ELLI Nifedipine (Nifedipine Er 90 Mg Tab.Er.24) 90 mg PO BID@0400,1700 [facility] Last Admin: 08/25/23 04:00 Dose: 90 mg Documented By: YURIY Omeprazole (Omeprazole 20 Mg Capsule.Dr) 20 mg PO BID [facility] Last Admin: 08/25/23 08:14 Dose: 20 mg Documented By: ELLI Pregabalin (Pregabalin 50 Mg Capsule) 50 mg PO BEDTIME [facility] Last Admin: 08/24/23 20:03 Dose: 50 mg Documented By: UMAIR Senna (Sennosides 8.6 Mg Tablet) 8.6 mg PO Q12H PRN PRN Reason: Constipation Sodium Chloride (0.9 % Sodium Chloride Flush 3 Ml Syringe) 3 ml IVFLUSH QSHIFT [facility] Last Admin: 08/25/23 08:15 Dose: 3 ml Documented By: ELLI Sucralfate (Sucralfate 1 Gm Tablet) 1 gm PO BID@0900,1700 [facility] Last Admin: 08/25/23 08:14 Dose: 1 gm Documented By: ELLI Labs 08/25/23 13:16 08/25/23 13:16 Labs: Laboratory Results - last 24 hr 08/25/23 08/25/23 08/25/23: 13:16 14:57 Plt Count 86 L Anion Gap 12 Estim Creat Clear Calc 3.3 Estimated GFR 10 POC Glucose 97 Random Glucose 102 Calcium 8.7 Blood Type O Positive Antibody Screen POSITIVE Crossmatch (AHG) See Detail Blood Bank Comment Technical Microbiology Microbiology Results: Microbiology 08/23/23 07:59 Blood Culture - Preliminary Blood - Venous No growth after 48 hours. 08/23/23 07:17 Blood Culture - Preliminary Blood - Venous No growth after 48 hours. Assessment and Plan (1) Labile blood pressure: Status: Acute (2) Acute systolic congestive heart failure: Status: Acute Plan 67-year-old male with known history of end-stage renal disease on hemodialysis presents with acute onset of shortness of breath chest pain. In the emergency room he was found to be hypoxic and placed on rescue BiPAP. He was noted to have blood pressures in the 210/120 range; these were treated aggressively and BiPAP was able to be removed. Nephrology was consulted and patient will receive dialysis urgently today. Hypotension, near syncopal episode: Multifactorial(dialysis, blood pressure medications, anemia also might be contributing) Patient was given 500 mL bolus, blood pressure improved, hypertension medications on told. Hold blood pressure medication, also added 1 PRBC. anemia: Possibly secondary to ESRD Anemia workup added, denies any melena or any gross bleeding. type and cross will transfuse 1 PRBC Monitor H&h Acute systolic CHF-last echo 04/2022 demonstrated LVEF 20-25% -aggressive afterload reduction after hemodialysis Troponin negative, EKG seems similar to before. Cardiology will see the patient due to labile blood pressure as well as chest pain? Acute hypoxic respiratory failure secondary to 1. Hypertension (chronic) with hypertensive emergency -responded to therapies -good response to hemodialysis Hold all BP medications currently due to borderline blood pressure Heparin Full code ongoing hospitalization -for hypertension, labile blood pressure, anemia severe: Requiring IV fluid, PRBC transfusion, also needs further cardiac testing Quality Stroke Does the patient have a stroke diagnosis?: No VTE Prior VTE?: No VTE Risk Level:: Medical - moderate - high VTE Device Contraindication: Treatment Not Indicated VTE Drug Contraindication: N/A - Med Ordered
[2023-08-25 17:12] LABS: Iron 124 mcg/dL (45-160); Percent Iron Saturation 82 % (15-50); Total Iron Binding Capacity 152 mcg/dL (228-428); Unsaturated Iron Binding 28 ug/dL
[2023-08-25 18:07] LABS: Ferritin 1629 ng/mL (20-250)
--- NOTE | 2023-08-25 18:27 | PC.NURSE ---
patient reports chest pain #6, medicated with Tylenol 650 mg PO and was okayed by DR Acosta to give early
[2023-08-25] MEDS: Atorvastatin Calcium 40 MG TABLET PO (22:04)
[2023-08-25] MEDS: Pregabalin 50 MG CAPSULE PO (22:04)
[2023-08-25] MEDS: Levothyroxine Sodium 200 MCG TABLET PO (22:04)
[2023-08-26] VITALS (11 sets, daily range): BP systolic 140–191; BP diastolic 60–84; PULSE 68–78; RESP 16–20; TEMP 36.1–36.8; O2SAT 100
[2023-08-26] MEDS: 0.9 % Sodium Chloride Flush 3 ML SYRINGE IVFLUSH ×3 (00:59→16:55)
[2023-08-26 08:21] LABS: Hematocrit 30.8 % (42.0-52.0)
[2023-08-26 08:23] LABS: Hemoglobin 10.1 g/dl (14.0-18.0)
--- NOTE | 2023-08-26 08:25 | PC.NURSE ---
LATE ENTRY: On 08/25/23 At ~11:15 pts BP 75/35. Pt stated he felt weird and not right . Dr. Acosta paged and immediately after Dr. Ramos happened to be at bedside checking in on pt, gave verbal order to give bolus of 500cc NS. Pt diaphoretic, placed in trendelenberg. Rapid response initiated. Dr. Acosta at bedside as well as multiple staff RNs. Pts BP increased after bolus see chart for details. Pt also mentating better and stated he felt better.
[2023-08-26 08:35] LABS: Anion Gap 14 (12-20); Blood Urea Nitrogen 9 mg/dL (9-16); Calcium 9.2 mg/dL (8.4-10.2); Carbon Dioxide 27 mmol/L (22-29); Chloride 97 mmol/L (96-108); Estimated Glomerular Filt Rate 30; Glucose Random 100 mg/dL (60-115); Potassium 3.1 mmol/L (3.3-5.1); Sodium 135 mmol/L (135-145)
[2023-08-26 09:11] LABS: Folate 5.4 ng/mL (> or = 4.0); Vitamin B12 897 pg/mL (200-900)
--- NOTE | 2023-08-26 09:40 | PM.PNCARD ---
Subjective Subjective Date of Service: 08/26/23 Principal diagnosis: Atypical chest pain, ischemic cardiomyopathy, labile blood pressure Interval history: Patient undergoing hemodialysis today. He is feeling well. Denies any chest pain or shortness of breath. He did receive 1 unit of packed RBC yesterday which could have improved his symptoms. He is currently improved with his hematocrit with hemoglobin at 10.1 range. His blood pressure is again elevated today during dialysis sessions. He is scheduled for undergoing stress test today. Review of Systems Constitutional: Reports no additional constitutional complaints Cardiovascular: Denies chest pain, Denies leg edema, Denies lightheadedness, Denies palpitations and Denies dyspnea Respiratory: Reports no additional respiratory complaints and Denies dyspnea Gastrointestinal: Reports no additional gastrointestinal complaints Genitourinary: Reports no additional male genitourinary complaints Reports system reviewed and no additional complaints, except as documented Endocrine: Denies palpitations Physical Exam Vital Signs: Last Vital Signs Temp 96.9 F 08/26/23 07:38 Pulse 72 08/26/23 07:38 Resp 20 08/26/23 07:38 BP 173/81 H 08/26/23 07:38 Pulse Ox 100 08/26/23 07:38 O2 Del Method Nasal Cannula 08/26/23 07:38 O2 Flow Rate 3 08/26/23 07:38 Oxygen Flow Rate 3 08/25/23 12:45 BMI result Body Mass Index 67.4 Const General: cooperative, comfortable, no acute distress, alert and awake Nutritional Appearance: average body habitus Orientation/consciousness: patient oriented x3 HEENT Head: Yes normocephalic and Yes atraumatic Neck Neck: Yes trachea midline, Yes supple and Yes no JVD Resp Effort & Inspection: normal respiratory effort Auscultation: clear to auscultation bilaterally Cardio Jugular venous distension: no JVD Palpation: abnormal PMI displaced PMI Rate: regular rate Rhythm: regular rhythm Heart sounds: S1 normal heart sound present, S2 normal heart sound present, no click, no gallops, no murmurs and no rubs GI Auscultation: normal bowel sounds Skin General skin exam: no rashes or lesions noted Neuro General: patient oriented x3 and no focal motor deficits Extrem Other: Bilateral above knee amputation Objective Labs and Meds 08/26/23 08:16 08/26/23 08:16 Lab results: Laboratory Results - last 24 hr 08/25/23 08/25/23 08/25/23 11:23 13:16 14:57 Hgb 6.7 L* Hct 21.6 L Plt Count 86 L Sodium 135 Potassium 4.4 Chloride 101 Carbon Dioxide 26 Anion Gap 12 BUN 23 H Creatinine 5.94 H* Estim Creat Clear Calc 3.3 Estimated GFR 10 POC Glucose 97 Random Glucose 102 Calcium 8.7 Iron 124 TIBC 152 L % Saturation 82 H Unsat Iron Binding 28 Ferritin 1629 H Troponin I High Sens 17.0 Vitamin B12 Folate Blood Type O Positive Antibody Screen POSITIVE Antibody Identification Anti-C Crossmatch ([facility]) Blood Bank Comment 08/25/23 08/25/23 08/26/23 14:57 14:57 08:16 Hgb 10.1 L D Hct 30.8 L D Plt Count Sodium 135 Potassium 3.1 L D Chloride 97 Carbon Dioxide 27 Anion Gap 14 BUN 9 Creatinine 2.17 H Estim Creat Clear Calc 9.0 Estimated GFR 30 POC Glucose Random Glucose 100 Calcium 9.2 Iron TIBC % Saturation Unsat Iron Binding Ferritin Troponin I High Sens Vitamin B12 897 Folate 5.4 Blood Type Antibody Screen Antibody Identification Anti-K Anti-e Crossmatch ([facility]) See Detail Blood Bank Comment Technical Progress Note: A&P Assessment and plan (1) Acute systolic congestive heart failure: Status: Acute Assessment and Plan: Acute systolic heart failure in this elderly gentleman which is multifactorial but precipitated by hypertensive urgency in the setting of significant anemia. Myocardial ischemia is highly likely in this gentleman. Schedule for myocardial perfusion imaging today. Will further guide treatment based on the findings. However importance of treating his blood pressure adequately as well as treating his anemia is of significant importance to reduce myocardial ischemic burden. I would restart his carvedilol at half the dose 12.5 mg q.12 and after discussed with Nephrology will also add losartan 25 mg b.i.d. for neurohormonal modulation. Continue low-dose aspirin therapy. Continue high-intensity statin therapy. Will add other medicines based on his response to medical therapy. (2) Labile blood pressure: Status: Acute Assessment and Plan: Significant labile blood pressure that does not make a whole lot of sense. He [facility] and he said he is very compliant with it. Possibility includes patient not taking his medications, not getting the right does or salt loading. Other possibility of having significant hypertension as stated could be significant anemia which is not improved with transfusion. At this point time his blood pressure is elevated and will slowly had medicines as above to control his blood pressure. Avoidance of salt loading was discussed. Importance of compliance with medication was discussed. Will follow with you Time Spent With Patient Time: Total time managing care of this patient today ____ minutes. Progress Note: Quality Stroke Does the patient have a stroke diagnosis?: No Procedures Date of Service Date of Service: 08/26/23
[2023-08-26] MEDS: Losartan Potassium 25 MG TABLET PO ×2 (10:12→21:50)
[2023-08-26] MEDS: Multivitamin TABLET 1 TAB PO (10:12)
[2023-08-26] MEDS: carvediloL 12.5 MG TABLET PO ×2 (10:12→21:50)
[2023-08-26] MEDS: Sucralfate 1 GM TABLET PO ×2 (10:12→16:55)
[2023-08-26] MEDS: Docusate Sodium 100 MG CAPSULE PO ×2 (10:13→21:50)
[2023-08-26] MEDS: Brimonidine Tartrate 0.2% Oph 5 ML BOTTLE 2 DROP EYE-BOTH ×2 (10:13→21:51)
[2023-08-26] MEDS: Omeprazole 20 MG CAPSULE.DR PO ×2 (10:13→21:50)
[2023-08-26] MEDS: Heparin Sodium,Porcine 5,000 UNIT/ML VIAL 5000 UNIT SUBCUT ×2 (10:13→21:50)
--- NOTE | 2023-08-26 10:53 | P.PNNP_ITS ---
Subjective Subjective Date of Service: 08/26/23 Principal diagnosis: Atypical chest pain, ischemic cardiomyopathy, labile blood pressure Interval history: Pt seen on HD earlier Feels good Hb is OK Physical Exam 2 Vital Signs: Vital Signs: Last Vital Signs Temp 97.2 F 08/26/23 09:44 Pulse 68 08/26/23 09:44 Resp 20 08/26/23 09:44 BP 190/78 H 08/26/23 09:44 Pulse Ox 100 08/26/23 09:44 O2 Del Method Nasal Cannula 08/26/23 09:44 O2 Flow Rate 3 08/26/23 09:44 Oxygen Flow Rate 3 08/25/23 12:45 BMI result Body Mass Index 67.4 Const: General: cooperative, comfortable, no acute distress, alert and awake Nutritional Appearance: average body habitus Orientation/consciousness: p atient oriented x3 HEENT: Head: Yes normocephalic and Yes atraumatic Neck: Neck: Yes trachea midline, Yes supple and Yes no JVD Resp: Effort & Inspection: normal respiratory effort Auscultation: clear to auscultation bilaterally Cardio: Jugular venous distension: no JVD Palpation: abnormal PMI displaced PMI Rate: regular rate Rhythm: regular rhythm Heart sounds: S1 normal heart sound present, S2 normal heart sound present, no click, no gallops, no murmurs and no rubs GI: Auscultation: normal bowel sounds Skin: General skin exam: no rashes or lesions noted Neuro: General: patient oriented x3 and no focal motor deficits Extrem: Other: Bilateral above knee amputation Objective Data Labs 08/26/23 08:16 08/26/23 08:16 Labs: Laboratory Results - last 24 hr 08/25/23 08/25/23 08/25/23 11: 13:16 14:57 Hgb 6.7 L* Hct 21.6 L Plt Count 86 L Sodium 135 Potassium 4.4 Chloride 101 Carbon Dioxide 26 Anion Gap 12 BUN 23 H Creatinine 5.94 H* Estim Creat Clear Calc 3.3 Estimated GFR 10 POC Glucose 97 Random Glucose 102 Calcium 8.7 Iron 124 TIBC 152 L % Saturation 82 H Unsat Iron Binding 28 Ferritin 1629 H Troponin I High Sens 17.0 Vitamin B12 Folate Blood Type O Positive Antibody Screen POSITIVE Antibody Identification Anti-C Crossmatch ([facility]) Blood Bank Comment 08/25/23 08/25/2308/26/23 14:57 14:57 08:16 Hgb 10.1 L D Hct 30.8 L D Plt Count Sodium 135 Potassium 3.1 L D Chloride 97 Carbon Dioxide 27 Anion Gap 14 BUN 9 Creatinine 2.17 H Estim Creat Clear Calc 9.0 Estimated GFR 30 POC Glucose Random Glucose 100 Calcium 9.2 Iron TIBC % Saturation Unsat Iron Binding Ferritin Troponin I High Sens Vitamin B12 897 Folate 5.4 Blood Type Antibody Screen Antibody Identification Anti-K Anti-e Crossmatch ([facility]) See Detail Blood Bank Comment Technical Microbiology Microbiology Results: Microbiology 08/23/23 07:59 Blood - Venous Blood Culture - Preliminary No growth after 48 hours. 08/23/23 07:17 Blood - Venous Blood Culture - Preliminary No growth after 48 hours. Procedures Date of Service Date of Service: 08/26/23 Assessment & Plan Assessment and plan (1) End stage chronic kidney disease: Status: Acute (2) Acute hypoxemic respiratory failure: Status: Acute (3) Hypertensive emergency: Status: Acute (4) Ischemic cardiomyopathy: Status: Inactive (5) Hypertensive crisis: Status: Resolved (6) Pancytopenia: Status: Resolved Plan 67 yo AA man with ESRD in the setting of HTN and type II DM and PAD admitted with SOB 1. ESRD: HD On HD [facility] - Kidney care pt 2. HTN: Bp is hgh - D/w team Restart Coreg 12.5 BID / Losartan 25 BID 3. Ane melissa: Hb improved. s/p 1 unit PRBC 4. SOB - doubt volume issues - Cardiology eval in progress Today 3 Kg vol removed Other w/u as per medical team Time Spent With Patient Time: Total time managing care of this patient today ____ minutes. Progress Note: Quality Stroke Does the patient have a stroke diagnosis?: No
--- NOTE | 2023-08-26 15:29 | MHC.CM.PN ---
EMR reviewed and per MD rounds, pt is not medically cleared for D/C, anticipating pt will likely be ready 1 or 2 more days. CM will continue to follow.
--- NOTE | 2023-08-26 15:40 | P.PNIM_ITS ---
Subjective Subjective Date of Service: 08/26/23 Interval History: labile htn Review of Systems On and off of chest tightness which seems chronic. Denies any shortness of breath or abdominal pain or nausea vomiting Physical Exam 2 Vital Signs: Vital Signs: Last Vital Signs Temp 98.2 F 08/26/23 15:22 Pulse 78 08/26/23 15:22 Resp 16 08/26/23 15:22 BP 168/62 H 08/26/23 15:22 Pulse Ox 100 08/26/23 15:22 O2 Del Method Nasal Cannula 08/26/23 15:22 O2 Flow Rate 3 08/26/23 15:22 Oxygen Flow Rate 3 08/25/23 12:45 BMI result Body Mass Index 67.4 Appearance: Alert.? Oriented X3.? cvs: [id number], [id number] , no murmur res: clear to auscultation ,no rhonchii or wheezing abd: no rebound or guarding ,nt, bs present. ext pulses present , no cyanosis . neuro: axo3 , nonfocal. Objective Data Active Medications Acetaminophen (Acetaminophen 325 Mg Tablet) 650 mg PO Q6H PRN PRN Reason: pain or fever Last Admin: 08/25/23 18:23 Dose: 650 mg Documented By: UMAIR Atorvastatin Calcium (Atorvastatin Calcium 40 Mg Tablet) 40 mg PO BEDTIME [facility] Last Admin: 08/25/23 22:04 Dose: 40 mg Documented By: UMAIR Brimonidine Tartrate (Brimonidine Tartrate 0.2% Oph 5 Ml Bottle) 2 drop EYE- BOTH BID [facility] Last Admin: 08/26/23 10:13 Dose: 2 drop Documented By: ELLI Carvedilol (Carvedilol 12.5 Mg Tablet) 12.5 mg PO BID [facility]; Protocol Last Admin: 08/26/23 10:12 Dose: 12.5 mg Documented By: ELLI Clonidine HCl (Clonidine Hcl 0.2 Mg Tablet) 0.2 mg PO TID@0900,1300,1700 [facility]; Protocol Last Admin: 08/25/23 08:14 Dose: 0.2 mg Documented By: ELLI Docusate Sodium (Docusate Sodium 100 Mg Capsule) 100 mg PO BID [facility] Last Admin: 08/26/23 10:13 Dose: 100 mg Documented By: ELLI Heparin Sodium (Porcine) (Heparin Sodium,Porcine 5,000 Unit/Ml Vial) 5,000 unit SUBCUT Q12H [facility] Last Admin: 08/26/23 10:13 Dose: 5,000 unit Documented By: ELLI Hydralazine HCl (Hydralazine Hcl 25 Mg Tablet) 25 mg PO Q8H PRN; Protocol PRN Reason: SBP >170 Last Admin: 08/23/23 22:50 Dose: 25 mg Documented By: RAFA Hydralazine HCl (Hydralazine Hcl 25 Mg Tablet) 75 mg PO TID@0900,1300,1700 [facility]; Protocol Last Admin: 08/25/23 08:15 Dose: 75 mg Documented By: ELLI Isosorbide Mononitrate (Isosorbide Mononitrate 60 Mg Tab.Er.24h) 60 mg PO DAILY [facility]; Protocol Last Admin: 08/25/23 08:14 Dose: 60 mg Documented By: ELLI Levothyroxine Sodium (Levothyroxine Sodium 200 Mcg Tablet) 200 mcg PO BEDTIME [facility] Last Admin: 08/25/23 22:04 Dose: 200 mcg Documented By: UMAIR Losartan Potassium (Losartan Potassium 25 Mg Tablet) 25 mg PO BID [facility]; Protocol Last Admin: 08/26/23 10:12 Dose: 25 mg Documented By: ELLI Multivitamins/Vitamin C (Multivitamin Tablet) 1 tab PO DAILY [facility] Last Admin: 08/26/23 10:12 Dose: 1 tab Documented By: ELLI Nifedipine (Nifedipine Er 90 Mg Tab.Er.24) 90 mg PO BID@0400,1700 [facility] Last Admin: 08/25/23 04:00 Dose: 90 mg Documented By: YURIY Omeprazole (Omeprazole 20 Mg Capsule.) 20 mg PO BID [facility] Last Admin: 08/26/23 10:13 Dose: 20 mg Documented By: ELLI Pregabalin (Pregabalin 50 Mg Capsule) 50 mg PO BEDTIME [facility] Last Admin: 08/25/23 22:04 Dose: 50 mg Documented By: UMAIR Senna (Sennosides 8.6 Mg Tablet) 8.6 mg PO Q12H PRN PRN Reason: Constipation Sodium Chloride (0.9 % Sodium Chloride Flush 3 Ml Syringe) 3 ml IVFLUSH QSHIFT [facility] Last Admin: 08/26/23 10:13 Dose: 3 ml Documented By: ELLI Sucralfate (Sucralfate 1 Gm Tablet) 1 gm PO BID@0900,1700 [facility] Last Admin: 08/26/23 10:12 Dose: 1 gm Documented By: ELLI Labs 08/26/23 08:16 08/26/23 08:16 Labs: Laboratory Results - last 24 hr 08/25/23 08/25/23 08/25/23 13:16 14:57 14:57 Anion Gap Estim Creat Clear Calc Estimated GFR Random Glucose Calcium Iron 124 TIBC 152 L % Saturation 82 H Unsat Iron Binding 28 Ferritin 1629 H Vitamin B12 Folate Blood Type O Positive Antibody Screen POSITIVE Antibody Identification Anti-C Anti-K Antigen Identification Crossmatch ([facility]) Blood Bank Comment 08/25/23 08/26/23 14:57 08:16 Anion Gap 14 Estim Creat Clear Calc 9.0 Estimated GFR 30 Random Glucose 100 Calcium 9.2 Iron TIBC % Saturation Unsat Iron Binding Ferritin Vitamin B12 897 Folate 5.4 Blood Type Antibody Screen Antibody Identification Anti-e Antigen Identification S Antigen - NEGATIVE Crossmatch ([facility]) See Detail Blood Bank Comment Technical Assessment and Plan (1) Labile blood pressure: Status: Acute Plan 67-year-old male with known history of end-stage renal disease on hemodialysis presents with acute onset of shortness of breath chest pain. In the emergency room he was found to be hypoxic and placed on rescue BiPAP. He was noted to have blood pressures in the 210/120 range; these were treated aggressively and BiPAP was able to be removed. Nephrology was consulted and patient will receive dialysis urgently today. Hypotension, near syncopal episode: Multifactorial(dialysis, blood pressure medications, anemia also might be contributing) Patient was given 500 mL bolus, also added 1 PRBC -bp improved . now HTn: added coreg and losartan. moniter bp anemia: Possibly secondary to ESRD Anemia workup added, denies any melena or any gross bleeding. given 1 PRBC Monitor H&h 10 hypokalemia/esrd: add po potassiumx1 dose Acute systolic CHF-last echo 04/2022 demonstrated LVEF 20-25% -aggressive afterload reduction after hemodialysis chest pain: Troponin negative, EKG seems similar to before. Cardiology will see the patient due to labile blood pressure as well as chest pain? will need stress test. Acute hypoxic respiratory failure secondary to 1. Hypertension (chronic) with hypertensive emergency -responded to therapies -good response to hemodialysis Hold all BP medications currently due to borderline blood pressure Heparin Full code ongoing hospitalization -for hypertension, labile blood pressure, anemia severe:need h/h monitering ,anemia workup, cardiac workup Quality Stroke Does the patient have a stroke diagnosis?: No VTE Prior VTE?: No VTE Risk Level:: Medical - moderate - high VTE Device Contraindication: Treatment Not Indicated VTE Drug Contraindication: N/A - Med Ordered
[2023-08-26 16:16] LABS: Platelet Count 114 X10*3/uL (160-400)
[2023-08-26 16:30] LABS: Iron 96 mcg/dL (45-160); Percent Iron Saturation 52 % (15-50); Total Iron Binding Capacity 186 mcg/dL (228-428); Unsaturated Iron Binding 90 ug/dL
[2023-08-26] MEDS: Potassium Chloride Packet 20 MEQ PACKET PO (16:55)
[2023-08-26] MEDS: Aspirin Enteric Coated 81 MG TABLET.DR PO (16:55)
[2023-08-26 17:49] LABS: Ferritin 1889 ng/mL (20-250)
[2023-08-26] MEDS: Pregabalin 50 MG CAPSULE PO (21:49)
[2023-08-26] MEDS: Atorvastatin Calcium 40 MG TABLET PO (21:49)
[2023-08-26] MEDS: Levothyroxine Sodium 200 MCG TABLET PO (21:50)
[2023-08-27] VITALS (8 sets, daily range): BP systolic 138–200; BP diastolic 58–68; PULSE 69–92; RESP 18–20; TEMP 36.1–37.2; O2SAT 3–100
[2023-08-27] MEDS: 0.9 % Sodium Chloride Flush 3 ML SYRINGE IVFLUSH ×4 (00:06→21:37)
[2023-08-27 08:09] LABS: Glucose, Whole Blood 89 mg/dL (60-115)
[2023-08-27] MEDS: Sucralfate 1 GM TABLET PO ×2 (08:18→17:25)
[2023-08-27] MEDS: Docusate Sodium 100 MG CAPSULE PO ×2 (08:18→21:37)
[2023-08-27] MEDS: carvediloL 12.5 MG TABLET PO ×2 (08:19→21:37)
[2023-08-27] MEDS: Isosorbide Mononitrate 60 MG TAB.ER.24H PO (08:19)
[2023-08-27] MEDS: Multivitamin TABLET 1 TAB PO (08:19)
[2023-08-27] MEDS: Losartan Potassium 25 MG TABLET PO ×2 (08:19→21:37)
[2023-08-27] MEDS: Omeprazole 20 MG CAPSULE.DR PO ×2 (08:20→21:49)
[2023-08-27] MEDS: Brimonidine Tartrate 0.2% Oph 5 ML BOTTLE 2 DROP EYE-BOTH ×2 (08:24→21:37)
[2023-08-27 08:57] LABS: Hemoglobin 10.4 g/dl (14.0-18.0)
[2023-08-27 09:20] LABS: Anion Gap 15 (12-20); Blood Urea Nitrogen 29 mg/dL (9-16); Calcium 9.4 mg/dL (8.4-10.2); Carbon Dioxide 26 mmol/L (22-29); Chloride 99 mmol/L (96-108); Glucose Random 106 mg/dL (60-115); Potassium 4.1 mmol/L (3.3-5.1); Sodium 136 mmol/L (135-145)
[2023-08-27 09:21] LABS: Creatinine Clr Calc Pharmacy 3.4; Estimated Glomerular Filt Rate 10
[2023-08-27 09:30] LABS: ABG Base Excess 1.1 mmol/L; ABG HCO3 28 mmol/L (22-26); ABG pCO2 53 mmHg (32-45); ABG pH 7.32 (7.35-7.45); ABG pO2 72 mmHg (83-108)
--- NOTE | 2023-08-27 10:13 | P.PNNP_ITS ---
Subjective Subjective Date of Service: 08/27/23 Principal diagnosis: Atypical chest pain, ischemic cardiomyopathy, labile blood pressure Interval history: Mild SOB No CP Physical Exam 2 Vital Signs: Vital Signs: Last Vital Signs Temp 96.9 F 08/27/23 07:34 Pulse 69 08/27/23 07:34 Resp 20 08/27/23 07:34 BP 170/68 H 08/27/23 07:34 Pulse Ox 96 08/27/23 07:34 O2 Del Method Room Air 08/27/23 07:34 O2 Flow Rate 3 08/26/23 15:22 Oxygen Flow Rate 3 08/25/23 12:45 BMI result Body Mass Index 67.4 Appearance: Alert.? Oriented X3.? cvs: [id number], [id number] , no murmur res: clear to auscultation ,no rhonchii or wheezing abd: no rebound or guarding ,nt, bs present. ext pulses present , no cyanosis . neuro: axo3 , nonfocal. Objective Data Labs 08/27/23 08:42 08/27/23 08:42 Labs: Laboratory Results - last 24 hr 08/25/23 08/26/23 08/27/23 14:57 08:16 08:05 Hgb 10.1 L D Hct 30.8 L D Plt Count 114 L D O2 Saturation ABG pH at Pt Temp ABG pCO2 at Pt Temp ABG pO2 at Pt Temp ABG HCO3 ABG Base Excess (Actual) Sodium Potassium Chloride Carbon Dioxide Anion Gap BUN Creatinine Estim Creat Clear Calc Estimated GFR POC Glucose 89 Random Glucose Calcium Iron 96 TIBC 186 L % Saturation 52 H Unsat Iron Binding 90 Ferritin 1889 H Antigen Identification S Antigen - NEGATIVE 08/27/23 08/27/23 08:42 09:24 Hgb 10.4 L Hct 32.0 L Plt Count O2 Saturation 92.0 ABG pH at Pt Temp 7.32 L ABG pCO2 at Pt Temp 53 H ABG pO2 at Pt Temp 72 L ABG HCO3 28 H ABG Base Excess (Actual) 1.1 Sodium 136 Potassium 4.1 D Chloride 99 Carbon Dioxide 26 Anion Gap 15 BUN 29 H Creatinine 5.77 H* Estim Creat Clear Calc 3.4 Estimated GFR 10 POC Glucose Random Glucose 106 Calcium 9.4 Iron TIBC % Saturation Unsat Iron Binding Ferritin Antigen Identification Microbiology Microbiology Results: Microbiology 08/23/23 07:59 Blood - Venous Blood Culture - Preliminary No growth after 48 hours. 08/23/23 07:17 Blood - Venous Blood Culture - Preliminary No growth after 48 hours. Procedures Date of Service Date of Service: 08/27/23 Assessment & Plan Assessment and plan (1) End stage chronic kidney disease: Status: Acute (2) Acute hypoxemic respiratory failure: Status: Acute (3) Hypertensive emergency: Status: Acute (4) Ischemic cardiomyopathy: Status: Inactive (5) Hypertensive crisis: Status: Resolved (6) Pancytopenia: Status: Resolved Plan 67 yo AA man with ESRD in the setting of HTN and type II DM and PAD admitted with SOB 1. ESRD: HD - Next HDin AM On HD [facility] - Kidney care pt 2. HTN: Bp is hgh - D/w team Restart Coreg 12.5 BID / Losartan 25 BID - Yesterday - May need to increase dose in AM - For now will continue as he has had low BP 3. Anemia: Hb improved. s/p 1 unit PRBC 4. SOB - doubt volume issues - Cardiology eval in progress - f/u stress results Today 3 Kg vol removed yesterday Other w/u as per medical team Time Spent With Patient Time: Total time managing care of this patient today ____ minutes. Progress Note: Quality Stroke Does the patient have a stroke diagnosis?: No
--- NOTE | 2023-08-27 10:20 | PM.PNCARD ---
Subjective Subjective Date of Service: 08/27/23 Principal diagnosis: Atypical chest pain, ischemic cardiomyopathy, labile blood pressure Interval history: Lencho complains of shortness of breath this morning. Oxygen saturation on room air in the 90s. As per the chart is not on chronic oxygen supplementation therapy. Consider doing a blood gas and evaluate from pulmonary perspective. Overtly does not appear to be in heart failure. Blood pressure is elevated still. Could be another reason for his shortness of breath. Myocardial perfusion imaging results are pending. Review of Systems Constitutional: Reports no additional constitutional complaints Cardiovascular: Denies chest pain, Denies rapid heart rate, Denies lightheadedness, Denies Loss of Consciousness and Reports dyspnea Respiratory: Reports dyspnea Gastrointestinal: Reports no additional gastrointestinal complaints Genitourinary: Reports no additional male genitourinary complaints Reports system reviewed and no additional complaints, except as documented Psychiatric: Reports no additional psychiatric complaints Physical Exam Vital Signs: Last Vital Signs Temp 96.9 F 08/27/23 07:34 Pulse 69 08/27/23 07:34 Resp 20 08/27/23 07:34 BP 170/68 H 08/27/23 07:34 Pulse Ox 96 08/27/23 07:34 O2 Del Method Room Air 08/27/23 07:34 O2 Flow Rate 3 08/26/23 15:22 Oxygen Flow Rate 3 08/25/23 12:45 BMI result Body Mass Index 67.4 Const General: cooperative, comfortable, no acute distress, alert and awake Nutritional Appearance: average body habitus Orientation/consciousness: patient oriented x3 HEENT Head: Yes normocephalic and Yes atraumatic Neck Neck: Yes trachea midline, Yes supple and Yes no JVD Resp Effort & Inspection: normal respiratory effort Auscultation: clear to auscultation bilaterally Cardio Jugular venous distension: no JVD Palpation: abnormal PMI displaced PMI Rate: regular rate Rhythm: regular rhythm Heart sounds: S1 normal heart sound present, S2 normal heart sound present, no click, no gallops, no murmurs and no rubs GI Auscultation: normal bowel sounds Skin General skin exam: no rashes or lesions noted Neuro General: patient oriented x3 and no focal motor deficits Extrem Other: Bilateral above knee amputation Objective Labs and Meds 08/27/23 08:42 08/27/23 08:42 Lab results: Laboratory Results - last 24 hr 08/25/23 08/26/23 08/27/23 14:57 08:16 08:05 Hgb 10.1 L D Hct 30.8 L D Plt Count 114 L D O2 Saturation ABG pH at Pt Temp ABG pCO2 at Pt Temp ABG pO2 at Pt Temp ABG HCO3 ABG Base Excess (Actual) Sodium Potassium Chloride Carbon Dioxide Anion Gap BUN Creatinine Estim Creat Clear Calc Estimated GFR POC Glucose 89 Random Glucose Calcium Iron 96 TIBC 186 L % Saturation 52 H Unsat Iron Binding 90 Ferritin 1889 H Antigen Identification S Antigen - NEGATIVE 08/27/23 08/27/23 08:42 09:24 Hgb 10.4 L Hct 32.0 L Plt Count O2 Saturation 92.0 ABG pH at Pt Temp 7.32 L ABG pCO2 at Pt Temp 53 H ABG pO2 at Pt Temp 72 L ABG HCO3 28 H ABG Base Excess (Actual) 1.1 Sodium 136 Potassium 4.1 D Chloride 99 Carbon Dioxide 26 Anion Gap 15 BUN 29 H Creatinine 5.77 H* Estim Creat Clear Calc 3.4 Estimated GFR 10 POC Glucose Random Glucose 106 Calcium 9.4 Iron TIBC % Saturation Unsat Iron Binding Ferritin Antigen Identification Progress Note: A&P Assessment and plan (1) Acute systolic congestive heart failure: Status: Acute Assessment and Plan: Acute systolic congestive heart failure related hypertensive urgency. Myocardial ischemia cannot be entirely ruled out. He has severe ischemic cardiomyopathy. Awaiting results of myocardial perfusion imaging to see if he requires further evaluation with invasive cardiac catheterization. Would uptitrate his medication to reduce his blood pressure and myocardial demand. Increase carvedilol to 6.25 mg b.i.d. and losartan 50 mg b.i.d.. His shortness of breath is concerning and could be related to increased myocardial stress related to blood pressure and lowering a blood pressure is important goal. Continue isosorbide therapy. Consider pulmonary imaging and incentive spirometry and a blood gas. (2) Labile blood pressure: Status: Acute Assessment and Plan: Markedly labile blood pressure could be related to significant volume removal with 2 days of ultrafiltration hemodialysis. Permissive hypertension up to systolic blood pressure of 150 if he tolerates without significant shortness of breath. Up titrate carvedilol and losartan as above and continue isosorbide. Hold other medications for now till carvedilol is maximized. Will continue to follow with you Time Spent With Patient Time: Total time managing care of this patient today ____ minutes. Progress Note: Quality Stroke Does the patient have a stroke diagnosis?: No Procedures Date of Service Date of Service: 08/27/23
[2023-08-27 11:01] LABS: ABG Refer to POC result
--- NOTE | 2023-08-27 14:26 | PC.NURSE ---
Assumed care this am, pt had episode of altered mentation around 0800, crying in pain and not responding to questions. Provider notified. Pt on 3LNC sating 100%, weaned down to RA, sating low 90s. Around 0814 pt calmed down and was able to respond to questions, fully alert & oriented. Provider notified.
--- NOTE | 2023-08-27 14:34 | P.PNIM_ITS ---
Subjective Subjective Date of Service: 08/27/23 Interval History: Shortness of breath Review of Systems Short of breath seems improving, Denies any fever chills or cough Physical Exam 2 Vital Signs: Vital Signs: Last Vital Signs Temp 97 F 08/27/23 11:21 Pulse 75 08/27/23 11:21 Resp 20 08/27/23 11:21 BP 147/67 H 08/27/23 11:21 Pulse Ox 97 08/27/23 11:21 O2 Del Method Nasal Cannula 08/27/23 11:21 O2 Flow Rate 1 08/27/23 11:21 Oxygen Flow Rate 3 08/25/23 12:45 BMI result Body Mass Index 67.4 Appearance: Alert.? Oriented X3.? cvs: rrr, [id number] , no murmur res: clear to auscultation ,no rhonchii or wheezing abd: no rebound or guarding ,nt, bs present. ext pulses present , no cyanosis . neuro: axo3 , nonfocal. Objective Data Active Medications Acetaminophen (Acetaminophen 325 Mg Tablet) 650 mg PO Q6H PRN PRN Reason: pain or fever Last Admin: 08/25/23 18:23 Dose: 650 mg Documented By: UMAIR Aspirin (Aspirin Enteric Coated 81 Mg Tablet.) 81 mg PO DAILY [facility] Last Admin: 08/27/23 08:20 Dose: Not Given Documented By: NATHALIE Non-Admin Reason: Patient Refused Atorvastatin Calcium (Atorvastatin Calcium 40 Mg Tablet) 40 mg PO BEDTIME [facility] Last Admin: 08/26/23 21:49 Dose: 40 mg Documented By: KADEEM Brimonidine Tartrate (Brimonidine Tartrate 0.2% Oph 5 Ml Bottle) 2 drop EYE- BOTH BID [facility] Last Admin: 08/27/23 08:24 Dose: 2 drop Documented By: NATHALIE Carvedilol (Carvedilol 12.5 Mg Tablet) 12.5 mg PO BID [facility]; Protocol Last Admin: 08/27/23 08:19 Dose: 12.5 mg Documented By: NATHALIE Clonidine HCl (Clonidine Hcl 0.2 Mg Tablet) 0.2 mg PO TID@0900,1300,1700 [facility]; Protocol Last Admin: 08/25/23 08:14 Dose: 0.2 mg Documented By: ELLI Docusate Sodium (Docusate Sodium 100 Mg Capsule) 100 mg PO BID [facility] Last Admin: 08/27/23 08:18 Dose: 100 mg Documented By: NATHALIE Heparin Sodium (Porcine) (Heparin Sodium,Porcine 5,000 Unit/Ml Vial) 5,000 unit SUBCUT Q12H [facility] Last Admin: 08/27/23 11:43 Dose: Not Given Documented By: NATHALIE Non-Admin Reason: Patient Refused Hydralazine HCl (Hydralazine Hcl 25 Mg Tablet) 25 mg PO Q8H PRN; Protocol PRN Reason: SBP >170 Last Admin: 08/23/23 22:50 Dose: 25 mg Documented By: RAFA Hydralazine HCl (Hydralazine Hcl 25 Mg Tablet) 75 mg PO TID@0900,1300,1700 [facility]; Protocol Last Admin: 08/25/23 08:15 Dose: 75 mg Documented By: ELLI Isosorbide Mononitrate (Isosorbide Mononitrate 60 Mg Tab.Er.24h) 60 mg PO DAILY [facility]; Protocol Last Admin: 08/27/23 08:19 Dose: 60 mg Documented By: NATHALIE Levothyroxine Sodium (Levothyroxine Sodium 200 Mcg Tablet) 200 mcg PO BEDTIME [facility] Last Admin: 08/26/23 21:50 Dose: 200 mcg Documented By: KADEEM Losartan Potassium (Losartan Potassium 25 Mg Tablet) 25 mg PO BID [facility]; Protocol Last Admin: 08/27/23 08:19 Dose: 25 mg Documented By: NATHALIE Multivitamins/Vitamin C (Multivitamin Tablet) 1 tab PO DAILY [facility] Last Admin: 08/27/23 08:19 Dose: 1 tab Documented By: NATHALIE Nifedipine (Nifedipine Er 90 Mg Tab.Er.24) 90 mg PO BID@0400,1700 [facility] Last Admin: 08/25/23 04:00 Dose: 90 mg Documented By: YURIY Omeprazole (Omeprazole 20 Mg Capsule.) 20 mg PO BID [facility] Last Admin: 08/27/23 08:20 Dose: 20 mg Documented By: NATHALIE Pregabalin (Pregabalin 50 Mg Capsule) 50 mg PO BEDTIME [facility] Last Admin: 08/26/23 21:49 Dose: 50 mg Documented By: HO.BEIT Senna (Sennosides 8.6 Mg Tablet) 8.6 mg PO Q12H PRN PRN Reason: Constipation Sodium Chloride (0.9 % Sodium Chloride Flush 3 Ml Syringe) 3 ml IVFLUSH QSHIFT [facility] Last Admin: 08/27/23 08:22 Dose: 3 ml Documented By: NATHALIE Sucralfate (Sucralfate 1 Gm Tablet) 1 gm PO BID@0900,1700 [facility] Last Admin: 08/27/23 08:18 Dose: 1 gm Documented By: NATHALIE Labs 08/27/23 08:42 08/27/23 08:42 Labs: Laboratory Results - last 24 hr 08/26/23 08/27/23 08/27/23 08:16 08:05 08:42 Plt Count 114 L D O2 Saturation ABG pH at Pt Temp ABG pCO2 at Pt Temp ABG pO2 at Pt Temp ABG HCO3 ABG Base Excess (Actual) Anion Gap 15 Estim Creat Clear Calc 3.4 Estimated GFR 10 POC Glucose 89 Random Glucose 106 Calcium 9.4 Iron 96 TIBC 186 L % Saturation 52 H Unsat Iron Binding 90 Ferritin 1889 H 08/27/23 09:24 Plt Count O2 Saturation 92.0 ABG pH at Pt Temp 7.32 L ABG pCO2 at Pt Temp 53 H ABG pO2 at Pt Temp 72 L ABG HCO3 28 H ABG Base Excess (Actual) 1.1 Anion Gap Estim Creat Clear Calc Estimated GFR POC Glucose Random Glucose Calcium Iron TIBC % Saturation Unsat Iron Binding Ferritin Assessment and Plan (1) Labile blood pressure: Status: Acute (2) End stage chronic kidney disease: Status: Acute Plan 67-year-old male with known history of end-stage renal disease on hemodialysis presents with acute onset of shortness of breath chest pain. In the emergency room he was found to be hypoxic and placed on rescue BiPAP. He was noted to have blood pressures in the 210/120 range; these were treated aggressively and BiPAP was able to be removed. Nephrology was consulted and patient will receive dialysis urgently today. Hypotension, near syncopal episode (2 days back): Multifactorial(dialysis, blood pressure medications, anemia also might be contributing) Patient recived 500 mL bolus, 1 PRBC resolved. HTn: continue coreg and losartan. moniter bp anemia: Possibly secondary to ESRD Anemia workup added, denies any melena or any gross bleeding. given 1 PRBC Monitor H&h 10 hypokalemia/esrd: add po potassiumx1 dose Acute systolic CHF-last echo 04/2022 demonstrated LVEF 20-25% -aggressive afterload reduction after hemodialysis chest pain: Troponin negative, EKG seems similar to before. Cardiology will see the patient due to labile blood pressure as well as chest pain? will need stress test. Acute hypoxic respiratory failure improving due to possible chf /uncontrolled htn: abg noted-ph ok,boderline elevated pco2:53 cxr seems atelactasis , interstitial changes seems improved since the last chest x-ray improved with hd and htn control Added incentive spirometry, chest physiotherapy for atelectasis, taper oxygen. Hypertension (chronic) with hypertensive emergency -responded to therapies -good response to hemodialysis Hold all BP medications currently due to borderline blood pressure Heparin Full code ongoing hospitalization -for hypertension, labile blood pressure, anemia severe:need h/h monitering ,anemia workup, cardiac workup Quality Stroke Does the patient have a stroke diagnosis?: No VTE Prior VTE?: No VTE Risk Level:: Medical - moderate - high VTE Device Contraindication: Treatment Not Indicated VTE Drug Contraindication: N/A - Med Ordered
[2023-08-27 15:20] LABS: Procalcitonin 0.57 ng/mL
--- NOTE | 2023-08-27 19:49 | PC.NURSE ---
Assumed care 19:15. Pt hypertensive 200/58 manual, HR 81. Covering Dr. Quintana notified with plan to give scheduled coreg and losartan and reassess at scheduled 2300 vitals as pt is asymptomatic. Will continue to monitor.
[2023-08-27] MEDS: Levothyroxine Sodium 200 MCG TABLET PO (21:37)
[2023-08-27] MEDS: Pregabalin 50 MG CAPSULE PO (21:37)
[2023-08-27] MEDS: Atorvastatin Calcium 40 MG TABLET PO (21:37)
[2023-08-28] VITALS (7 sets, daily range): BP systolic 145–184; BP diastolic 58–77; PULSE 67–80; RESP 16–18; TEMP 36.1–37.1; O2SAT 95–100
--- NOTE | 2023-08-28 03:31 | PC.NURSE ---
BP reassessed 23:00 hour s/p scheduled evening coreg and losartan, 138/64 with HR 71, +effect compared to prev. BP.
--- NOTE | 2023-08-28 07:00 | CA_ITS ---
Transthoracic Echocardiogram Patient (Last, First, Middle): Clinton Small, Gender: Male Date of : 1955 Age: 67 Procedure Date: 08/28/2023 Procedure Type: Transthoracic Echocardiogram Location: [facility] [place] Height: 91. cm Weight: 56.25 kg BSA: 1.05 m2 Heart Rate: 73 bpm BP: 145 / 65 mmHg [employer] Feed Mixer: GREG Sibley MD: Anju Acosta MD Cashier Office: Gary Ramos MD Symptoms: elevated trops Study Quality: Fair/w Definity ECG Rhythm: Sinus Conclusions: - 1. Normal LV ejection fraction 60 65% with moderate LVH with impaired relaxation filling pattern 2. Mild aortic stenosis and moderate mitral annular calcification 3. No gross pericardial effusion Findings Procedure Information Contrast agent, definity, is being given per protocol without apparent complications. Left Ventricle Normal left ventricular size and systolic function. There is moderately increased left ventricular wall thickness. The visually estimated ejection fraction is between 60-65%. Spectral Doppler is indicative of an impaired relaxation filling pattern. E/E prime ratio is between 8 and 15 consistent with indeterminate filling pressures. Right Ventricle The right ventricle was not well visualized. Atria The left atrium is likely dilated. Interatrial shunt cannot be excluded. The right atrium was not well visualized. Aortic Valve There is mild calcification of the aortic valve. There is moderate thickening of the aortic valve. There is mild aortic valve stenosis. The peak aortic gradient is 15 mmHg.The mean gradient is 7 mmHg. There is no aortic valve regurgitation. Mitral Valve There is mild anterior and moderate posterior mitral leaflet thickening. There is moderate mitral annular calcification. There is trace mitral valve regurgitation. There is no mitral valve stenosis. Pulmonic Valve The pulmonic valve was not well visualized. Tricuspid Valve The tricuspid valve was not well visualized. Tricuspid regurgitation envelope is inadequate for calculation of right ventricular systolic pressure. Great Vessels All visible segments of the aorta are normal in size. The pulmonary artery was not well visualized. There is no dilatation of the ascending aorta. Venous The inferior vena cava is normal in size and collapses greater than 50% with inspiration. Pericardium/Pleural There is no evidence of pericardial effusion. Prior Study Comparison Significant changes compared to prior study. LV systolic function is normalized, Measurements 2D Linear Measurements IVSd: 1.51 0.6-0.9/0.6-1.0 cm LVIDd: 3.75 3.9-5.3/4.2-5.9 cm LVIDd Index: 3.57 2.4-3.2/2.2-3.1 cm/m2 LVIDs: 2.08 2.0-3.6 cm LVPWd: 1.55 0.7-1.1 cm LA Diam: 4.50 2.7-3.8/3.0-4.0 cm LAIDs Index: 4.29 1.5-2.3 cm/m2 LV Mass: 273.61 67-162/88-224 g LV Mass Index: 260.58 43-95/49-115 g/m2 LVOT Diam: 2.00 3.0+(-)1.3 cm 2D Systolic Function EF 4C: 65.20 >55% EF 2C: 53.40 >55% EF BiP: 60.40 >55% Mitral Valve MV Pk E: 0.80 MV PK A: 1.19 MV Decel Time: 227.00 E/A: 0.70 E'Lateral: 7.62 E'Medial: 4.57 E/E' Med: 17.50 E/E' Lat: 10.50 PHT: 67.00 MVA PHT: 3.28 Decel [place]: 3.53 Aortic Valve AoV Pk Jacobo: 1.93 AoV Mn Jacobo: 1.22 AoV VTI: 0.32 AoV Pk Grad: 15.00 Aov Mn Grad: 7.00 WILDER Cont.VTI: 1.74 LVOT LVOT Pk Jacobo: 1.02 LVOT Mn Jacobo: 0.76 LVOT VTI: 0.18 LVOT Pk Grad: 4.00 LVOT Mn Grad: 3.00 LVOT Diam: 2.00 LVOT Area: 3.14 Diastolic Function MV Pk E: 0.80 MV Pk A: 1.19 E/A: 0.70 E'Medial: 4.57 E/E' Med: 17.50 E' Laterial: 7.62 E/E' Lat: 10.50 Right Ventricle TAPSE (mm): 12.20 Tricuspid Valve TR Pk Jacobo: 1.89 TR Pk Grad: 14.00 Great Vessels Aorta Sinus of Valsalva: 3.50 2.0-3.5 cm Ao Asc: 3.00 2.1-3.4 cm Pulmonary Valve PV Pk Jacobo: 0.79 Peak PV Grad: 2.00 Updated in Other Vendor System with Status of Final Gary Ramos MD electronically signed on 08/28/2023 3:56:34 PM with status of Final
[2023-08-28] MEDS: 0.9 % Sodium Chloride Flush 3 ML SYRINGE IVFLUSH ×3 (08:07→23:49)
[2023-08-28] MEDS: Brimonidine Tartrate 0.2% Oph 5 ML BOTTLE 2 DROP EYE-BOTH ×2 (08:08→20:59)
--- NOTE | 2023-08-28 10:36 | PM.PNCARD ---
Subjective Subjective Date of Service: 08/28/23 Principal diagnosis: Atypical chest pain, ischemic cardiomyopathy, labile blood pressure Interval history: Patient's myocardial perfusion imaging shows no high risk features. LV gated EF appeared to be within normal limits. Patient undergoing hemodialysis in blood pressure in the 120s. Patient denies any complaints at this point in time. Review of Systems Constitutional: Reports no additional constitutional complaints Cardiovascular: Denies chest pain, Denies lightheadedness, Denies Loss of Consciousness, Denies palpitations and Reports dyspnea Respiratory: Reports no additional respiratory complaints and Reports dyspnea Gastrointestinal: Reports no additional gastrointestinal complaints Genitourinary: Reports no additional male genitourinary complaints Musculoskeletal: Reports no additional musculoskeletal complaints Skin/Breast: Reports system reviewed and no additional complaints, except as docu Reports system reviewed and no additional complaints, except as documented Endocrine: Denies palpitations Physical Exam Vital Signs: Last Vital Signs Temp 97.0 F 08/28/23 07:26 Pulse 74 08/28/23 07:26 Resp 18 08/28/23 07:26 BP 170/68 H 08/28/23 07:26 Pulse Ox 95 08/28/23 07:26 O2 Del Method Nasal Cannula 08/28/23 07:26 O2 Flow Rate 2 08/28/23 07:26 Oxygen Flow Rate 3 08/25/23 12:45 BMI result Body Mass Index 67.4 Const General: cooperative, comfortable, no acute distress, alert and awake Nutritional Appearance: average body habitus Orientation/consciousness: patient oriented x3 HEENT Head: Yes normocephalic and Yes atraumatic Neck Neck: Yes trachea midline, Yes supple and Yes no JVD Resp Effort & Inspection: normal respiratory effort Auscultation: clear to auscultation bilaterally Cardio Jugular venous distension: no JVD Palpation: abnormal PMI displaced PMI Rate: regular rate Rhythm: regular rhythm Heart sounds: S1 normal heart sound present, S2 normal heart sound present, no click, no gallops, no murmurs and no rubs GI Auscultation: normal bowel sounds Skin General skin exam: no rashes or lesions noted Neuro General: patient oriented x3 and no focal motor deficits Extrem Other: Bilateral above knee amputation Objective Labs and Meds 08/27/23 08:42 08/27/23 08:42 Lab results: Laboratory Results - last 24 hr 08/27/23 08:42 Procalcitonin 0.57 Imaging Radiologist's impression: Impressions Myocardial Perfusion Scan Nuc Med 08/25/23 12:00 Impression: 1. Myocardial perfusion imaging study shows possible mild ischemia in the basal inferolateral wall but otherwise normal perfusion. 2. Gated LVEF appears normal visually. Calculated values are likely not accurate. Correlate with echocardiogram. EKG component of the test reported separately. Chest X-Ray 08/27/23 10:39 IMPRESSION: 1. Significant interval improvement in previously noted airspace disease involving both lungs. 2. Mild bibasilar atelectasis and/or pneumonia. Progress Note: A&P Assessment and plan (1) Acute systolic congestive heart failure: Status: Acute Assessment and Plan: Patient with severe cardiomyopathy by last echocardiogram although gated LVEF looks within normal limits. Need limited echocardiogram and with no evidence of significant ischemia unlikely that the prior echocardiogram could have been stress-induced cardiomyopathy. He still has congestive heart failure related to hypertensive urgency in the setting of diastolic dysfunction and end-stage renal disease. Needs better control of his blood pressure. Low-salt diet needs to be pursued. Still has low oxygen level with high CO2 question underlying COPD. May need outpatient pulmonary function test and pulmonary evaluation. (2) Labile blood pressure: Status: Acute Assessment and Plan: Patient with significant labile blood pressure. I would advise higher does of medications including Coreg and losartan on non dialysis days and high after does on dialysis days. Permissive hypertension up to systolic 150. Low-salt diet. Also restrict fluid to 1.2 L a day. Patient was explained these findings. Will sign of the case. Thank you for allowing me to partake in his care Time Spent With Patient Time: Total time managing care of this patient today ____ minutes. Progress Note: Quality Stroke Does the patient have a stroke diagnosis?: No Procedures Date of Service Date of Service: 08/28/23
[2023-08-28 12:14] LABS: Anion Gap 15 (12-20); Blood Urea Nitrogen 12 mg/dL (9-16); Calcium 9.4 mg/dL (8.4-10.2); Carbon Dioxide 23 mmol/L (22-29); Chloride 101 mmol/L (96-108); Creatinine Clr Calc Pharmacy 7.9; Estimated Glomerular Filt Rate 26; Glucose Random 132 mg/dL (60-115); Sodium 136 mmol/L (135-145)
[2023-08-28] MEDS: Losartan Potassium 50 MG TABLET PO ×2 (12:31→17:46)
[2023-08-28] MEDS: carvediloL 12.5 MG TABLET PO ×2 (12:32→17:47)
[2023-08-28] MEDS: Omeprazole 20 MG CAPSULE.DR PO ×2 (12:32→20:57)
--- NOTE | 2023-08-28 14:18 | PM.PNNEP ---
Subjective Subjective Date of Service: 08/28/23 Principal diagnosis: Atypical chest pain, ischemic cardiomyopathy, labile blood pressure Interval history: dialyzed today. Physical Exam Vital Signs: Vital Signs: Last Vital Signs Temp 97.7 F 08/28/23 12:00 Pulse 75 08/28/23 12:00 Resp 18 08/28/23 12:00 BP 170/77 H 08/28/23 12:00 Pulse Ox 97 08/28/23 12:00 O2 Del Method Room Air 08/28/23 12:00 O2 Flow Rate 2 08/28/23 07:26 Oxygen Flow Rate 3 08/25/23 12:45 BMI result Body Mass Index 67.4 Const: Other: Awake alert no acute distress. Breathing effortlessly on nasal cannula Orientation/consciousness: patient oriented x3 Resp: Auscultation: clear to auscultation bilaterally Cardio: Rate: regular rate Rhythm: regular rhythm GI: Other: Soft nontender nondistended normoactive bowel sounds Neuro: General: patient oriented x3 Extrem: Other: Bilateral above knee amputation Objective Data Labs 08/27/23 08:42 08/28/23 11:08 Labs: Laboratory Results - last 24 hr 08/27/23 08/28/23 08:42 11:08 Sodium 136 Potassium 3.0 L D Chloride 101 Carbon Dioxide 23 Anion Gap 15 BUN 12 Creatinine 2.48 H Estim Creat Clear Calc 7.9 Estimated GFR 26 Random Glucose 132 H Calcium 9.4 Procalcitonin 0.57 Microbiology Microbiology Results: Microbiology 08/23/23 07:59 Blood - Venous Blood Culture - Final No growth after 5 days. 08/23/23 07:17 Blood - Venous Blood Culture - Final No growth after 5 days. Procedures Date of Service Date of Service: 08/28/23 Assessment & Plan Assessment and plan (1) End stage chronic kidney disease: Status: Acute (2) Acute hypoxemic respiratory failure: Status: Acute (3) Hypertensive emergency: Status: Acute (4) Ischemic cardiomyopathy: Status: Inactive (5) Hypertensive crisis: Status: Resolved (6) Pancytopenia: Status: Resolved Plan 67 yo AA man with ESRD in the setting of HTN and type II DM and PAD admitted with SOB 1. ESRD: HD - Next HD today On HD [facility] - Kidney care pt 2. HTN: c/w Coreg 12.5 BID / Losartan 25 BID Consider increased losartan to 50mg if needed 3. Anemia: Hb improved. s/p 1 unit PRBC Time Spent With Patient Time: Total time managing care of this patient today ____ minutes. Progress Note: Quality Stroke Does the patient have a stroke diagnosis?: No
[2023-08-28] MEDS: Sucralfate 1 GM TABLET PO (16:26)
--- NOTE | 2023-08-28 16:29 | P.PNIM_ITS ---
Subjective Subjective Date of Service: 08/28/23 Interval History: Shortness of breath Review of Systems Short of breath seems improving, Denies any fever chills or cough Physical Exam 2 Vital Signs: Vital Signs: Last Vital Signs Temp 97.7 F 08/28/23 12:00 Pulse 75 08/28/23 12:00 Resp 18 08/28/23 12:00 BP 170/77 H 08/28/23 12:00 Pulse Ox 97 08/28/23 12:00 O2 Del Method Room Air 08/28/23 12:00 O2 Flow Rate 2 08/28/23 07:26 Oxygen Flow Rate 3 08/25/23 12:45 BMI result Body Mass Index 67.4 Appearance: Alert.? Oriented X3.? cvs: rrr, [id number] , no murmur res: clear to auscultation ,no rhonchii or wheezing abd: no rebound or guarding ,nt, bs present. ext pulses present , no cyanosis . neuro: axo3 , nonfocal. Objective Data Active Medications Acetaminophen (Acetaminophen 325 Mg Tablet) 650 mg PO Q6H PRN PRN Reason: pain or fever Last Admin: 08/25/23 18:23 Dose: 650 mg Documented By: UMAIR Aspirin (Aspirin Enteric Coated 81 Mg Tablet.) 81 mg PO DAILY [facility] Last Admin: 08/28/23 12:31 Dose: Not Given Documented By: RUBIA Non-Admin Reason: Patient Refused Atorvastatin Calcium (Atorvastatin Calcium 40 Mg Tablet) 40 mg PO BEDTIME [facility] Last Admin: 08/27/23 21:37 Dose: 40 mg Documented By: PASCUAL Brimonidine Tartrate (Brimonidine Tartrate 0.2% Oph 5 Ml Bottle) 2 drop EYE- BOTH BID [facility] Last Admin: 08/28/23 08:08 Dose: 2 drop Documented By: RUBIA Carvedilol (Carvedilol 12.5 Mg Tablet) 12.5 mg PO BID [facility]; Protocol Last Admin: 08/28/23 12:32 Dose: 6.25 mg Documented By: RUBIA Comments: per MD give half Docusate Sodium (Docusate Sodium 100 Mg Capsule) 100 mg PO BID [facility] Last Admin: 08/28/23 11:30 Dose: Not Given Documented By: RUBIA Non-Admin Reason: in dialysis Heparin Sodium (Porcine) (Heparin Sodium,Porcine 5,000 Unit/Ml Vial) 5,000 unit SUBCUT Q12H [facility] Last Admin: 08/28/23 11:30 Dose: Not Given Documented By: RUBIA Non-Admin Reason: in dialysis Hydralazine HCl (Hydralazine Hcl 25 Mg Tablet) 25 mg PO Q8H PRN; Protocol PRN Reason: SBP >170 Last Admin: 08/23/23 22:50 Dose: 25 mg Documented By: RAFA Isosorbide Mononitrate (Isosorbide Mononitrate 60 Mg Tab.Er.24h) 60 mg PO DAILY [facility]; Protocol Last Admin: 08/28/23 12:26 Dose: Not Given Documented By: RUBIA Non-Admin Reason: Physician Held Med Levothyroxine Sodium (Levothyroxine Sodium 200 Mcg Tablet) 200 mcg PO BEDTIME [facility] Last Admin: 08/27/23 21:37 Dose: 200 mcg Documented By: PASCUAL Losartan Potassium (Losartan Potassium 50 Mg Tablet) 50 mg PO BID [facility]; Protocol Last Admin: 08/28/23 12:31 Dose: 25 mg Documented By: RUBIA Comments: per Multivitamins/Vitamin C (Multivitamin Tablet) 1 tab PO DAILY [facility] Last Admin: 08/28/23 11:31 Dose: Not Given Documented By: RUBIA Non-Admin Reason: in dialysis Omeprazole (Omeprazole 20 Mg Capsule.) 20 mg PO BID [facility] Last Admin: 08/28/23 12:32 Dose: 20 mg Documented By: RUBIA Pregabalin (Pregabalin 50 Mg Capsule) 50 mg PO BEDTIME [facility] Last Admin: 08/27/23 21:37 Dose: 50 mg Documented By: PASCUAL Senna (Sennosides 8.6 Mg Tablet) 8.6 mg PO Q12H PRN PRN Reason: Constipation Sodium Chloride (0.9 % Sodium Chloride Flush 3 Ml Syringe) 3 ml IVFLUSH QSHIFT [facility] Last Admin: 08/28/23 16:27 Dose: 3 ml Documented By: RUBIA Sucralfate (Sucralfate 1 Gm Tablet) 1 gm PO BID@0900,1700 [facility] Last Admin: 08/28/23 16:26 Dose: 1 gm Documented By: RUBIA Labs 08/27/23 08:42 08/28/23 11:08 Labs: Laboratory Results - last 24 hr 08/28/23 11:08 Anion Gap 15 Estim Creat Clear Calc 7.9 Estimated GFR 26 Random Glucose 132 H Calcium 9.4 Microbiology Microbiology Results: Microbiology 08/23/23 07:59 Blood Culture - Final Blood - Venous No growth after 5 days. 08/23/23 07:17 Blood Culture - Final Blood - Venous No growth after 5 days. Assessment and Plan (1) Acute systolic congestive heart failure: Status: Acute (2) Acute hypoxemic respiratory failure: Status: Acute Plan 67-year-old male with known history of end-stage renal disease on hemodialysis presents with acute onset of shortness of breath chest pain. In the emergency room he was found to be hypoxic and placed on rescue BiPAP. He was noted to have blood pressures in the 210/120 range; these were treated aggressively and BiPAP was able to be removed. Nephrology was consulted and patient will receive dialysis urgently today. Hypotension, near syncopal episode (2 days back): Multifactorial(dialysis, blood pressure medications, anemia also might be contributing) Patient recived 500 mL bolus, 1 PRBC resolved. HTn: continue coreg and losartan. moniter bp anemia: Possibly secondary to ESRD Anemia workup added, denies any melena or any gross bleeding. given 1 PRBC Monitor H&h 10 hypokalemia/esrd: added [id number] meq. Acute systolic CHF-last echo 04/2022 demonstrated LVEF 20-25% -aggressive afterload reduction after hemodialysis chest pain: Troponin negative, EKG seems similar to before. Cardiology will see the patient due to labile blood pressure as well as chest pain-myocardial perfusion imaging shows no high risk features. LV gated EF appeared to be within normal limits. Acute hypoxic respiratory failure improving due to possible chf /uncontrolled htn: may have undiagnosed copd? abg noted-ph ok,boderline elevated pco2:53 cxr seems atelactasis , interstitial changes seems improved since the last chest x-ray improved with hd and htn control Added incentive spirometry, chest physiotherapy for atelectasis, taper oxygen.albuteol Hypertension (chronic) with hypertensive emergency -responded to therapies -good response to hemodialysis Hold all BP medications currently due to borderline blood pressure Heparin Full code ongoing hospitalization -for hypertension, labile blood pressure, anemia severe:need h/h monitering , htn monitering Quality Stroke Does the patient have a stroke diagnosis?: No VTE Prior VTE?: No VTE Risk Level:: Medical - moderate - high VTE Device Contraindication: Treatment Not Indicated VTE Drug Contraindication: N/A - Med Ordered
--- NOTE | 2023-08-28 18:14 | PC.NURSE ---
Pt A&OX4. Refusing bed alarm able to get self from bed to wheelchair safely asks for assist with transfer in bathroom. LS dim denies SOB or CP, NS on tele. Refusing sat probe to finger to monitor oxygen level. Attempting to wean off oxygen per Dr Acosta satting 100 on 1L. Off unit for dialysis in am +bruit/thrill to right arm. Returns at 1200. Per Dr Acsota only to give half of coreg and losartan upon return from dialysis due to labile BP's. Repeat later afternoon remains in [address] Acosta give night dose early of coreg and losartan. Pt refused potassium notified. Will continue to monitor and report changes
[2023-08-28] MEDS: Levothyroxine Sodium 200 MCG TABLET PO (20:57)
[2023-08-28] MEDS: Pregabalin 50 MG CAPSULE PO (20:57)
[2023-08-28] MEDS: Docusate Sodium 100 MG CAPSULE PO (20:57)
[2023-08-28] MEDS: Atorvastatin Calcium 40 MG TABLET PO (20:57)
[2023-08-29 03:27] VITALS: BP 151/70; PULSE 78; RESP 18; TEMP 37; O2SAT 97
[2023-08-29 07:26] VITALS: BP 182/69; PULSE 73; RESP 20; TEMP 36.5; O2SAT 100
[2023-08-29] MEDS: Isosorbide Mononitrate 60 MG TAB.ER.24H PO (08:07)
[2023-08-29] MEDS: Multivitamin TABLET 1 TAB PO (08:07)
[2023-08-29] MEDS: 0.9 % Sodium Chloride Flush 3 ML SYRINGE IVFLUSH (08:08)
[2023-08-29] MEDS: Docusate Sodium 100 MG CAPSULE PO (08:08)
[2023-08-29] MEDS: Losartan Potassium 50 MG TABLET PO (08:08)
[2023-08-29] MEDS: Omeprazole 20 MG CAPSULE.DR PO (08:08)
[2023-08-29] MEDS: Aspirin Enteric Coated 81 MG TABLET.DR PO (08:08)
[2023-08-29] MEDS: carvediloL 12.5 MG TABLET PO (08:08)
[2023-08-29] MEDS: Sucralfate 1 GM TABLET PO (08:08)
[2023-08-29] MEDS: Brimonidine Tartrate 0.2% Oph 5 ML BOTTLE 2 DROP EYE-BOTH (08:10)
[2023-08-29 11:13] VITALS: BP 172/75; PULSE 77; RESP 20; TEMP 36.6; O2SAT 99
[2023-08-29 11:18] LABS: Potassium 4.7 mmol/L (3.3-5.1)
--- NOTE | 2023-08-29 11:33 | HO.PM.IMPN ---
Subjective Subjective Date of Service: 08/29/23 Interval History: esrd,labile htn Review of Systems bp still elevated denies any chest pain or sob Physical Exam Vital Signs: Vital Signs: Last Vital Signs Temp 97.8 F 08/29/23 11:13 Pulse 77 08/29/23 11:13 Resp 20 08/29/23 11:13 BP 172/75 H 08/29/23 11:13 Pulse Ox 99 08/29/23 11:13 O2 Del Method Nasal Cannula 08/29/23 11:13 O2 Flow Rate 3 08/29/23 11:13 Oxygen Flow Rate 3 08/25/23 12:45 BMI result Body Mass Index 67.4 Appearance: Alert.? Oriented X3.? cvs: rrr, [id number] , no murmur res: clear to auscultation ,no rhonchii or wheezing abd: no rebound or guarding ,nt, bs present. ext pulses present , no cyanosis . neuro: axo3 , nonfocal. Objective Data Active Medications Acetaminophen (Acetaminophen 325 Mg Tablet) 650 mg PO Q6H PRN PRN Reason: pain or fever Last Admin: 08/25/23 18:23 Dose: 650 mg Documented By: UMAIR Albuterol Sulfate (Albuterol Sulfate 90 Mcg 8 Gm Inhaler) 2 puff INHALE RQ4H PRN PRN Reason: sob Aspirin (Aspirin Enteric Coated 81 Mg Tablet.) 81 mg PO DAILY [facility] Last Admin: 08/29/23 08:08 Dose: 81 mg Documented By: ELLI Atorvastatin Calcium (Atorvastatin Calcium 40 Mg Tablet) 40 mg PO BEDTIME [facility] Last Admin: 08/28/23 20:57 Dose: 40 mg Documented By: YURIY Brimonidine Tartrate (Brimonidine Tartrate 0.2% Oph 5 Ml Bottle) 2 drop EYE-BOTH BID [facility] Last Admin: 08/29/23 08:10 Dose: 2 drop Documented By: ELLI Carvedilol (Carvedilol 12.5 Mg Tablet) 12.5 mg PO BID [facility]; Protocol Last Admin: 08/29/23 08:08 Dose: 12.5 mg Documented By: ELLI Docusate Sodium (Docusate Sodium 100 Mg Capsule) 100 mg PO BID [facility] Last Admin: 08/29/23 08:08 Dose: 100 mg Documented By: ELLI Heparin Sodium (Porcine) (Heparin Sodium,Porcine 5,000 Unit/Ml Vial) 5,000 unit SUBCUT Q12H [facility] Last Admin: 08/28/23 23:50 Dose: Not Given Documented By: ANTOIC Non-Admin Reason: Patient Refused Hydralazine HCl (Hydralazine Hcl 25 Mg Tablet) 25 mg PO Q8H PRN; Protocol PRN Reason: SBP >170 Last Admin: 08/23/23 22:50 Dose: 25 mg Documented By: RAFA Isosorbide Mononitrate (Isosorbide Mononitrate 60 Mg Tab.Er.24h) 60 mg PO DAILY [facility]; Protocol Last Admin: 08/29/23 08:07 Dose: 60 mg Documented By: ELLI Levothyroxine Sodium (Levothyroxine Sodium 200 Mcg Tablet) 200 mcg PO BEDTIME [facility] Last Admin: 08/28/23 20:57 Dose: 200 mcg Documented By: YURIY Losartan Potassium (Losartan Potassium 50 Mg Tablet) 50 mg PO BID [facility]; Protocol Last Admin: 08/29/23 08:08 Dose: 50 mg Documented By: ELLI Multivitamins/Vitamin C (Multivitamin Tablet) 1 tab PO DAILY [facility] Last Admin: 08/29/23 08:07 Dose: 1 tab Documented By: ELIL Omeprazole (Omeprazole 20 Mg Capsule.) 20 mg PO BID [facility] Last Admin: 08/29/23 08:08 Dose: 20 mg Documented By: ELLI Pregabalin (Pregabalin 50 Mg Capsule) 50 mg PO BEDTIME [facility] Last Admin: 08/28/23 20:57 Dose: 50 mg Documented By: YURIY Senna (Sennosides 8.6 Mg Tablet) 8.6 mg PO Q12H PRN PRN Reason: Constipation Sodium Chloride (0.9 % Sodium Chloride Flush 3 Ml Syringe) 3 ml IVFLUSH QSHIFT [facility] Last Admin: 08/29/23 08:08 Dose: 3 ml Documented By: ELLI Sucralfate (Sucralfate 1 Gm Tablet) 1 gm PO BID@0900,1700 [facility] Last Admin: 08/29/23 08:08 Dose: 1 gm Documented By: ELLI Labs 08/27/23 08:42 08/29/23 10:53 Labs: Laboratory Results - last 24 hr 08/28/23 11:08 Anion Gap 15 Estim Creat Clear Calc 7.9 Estimated GFR 26 Random Glucose 132 H Calcium 9.4 Microbiology Microbiology Results: Microbiology 08/23/23 07:59 Blood Culture - Final Blood - Venous No growth after 5 days. 08/23/23 07:17 Blood Culture - Final Blood - Venous No growth after 5 days. Assessment and Plan (1) Acute systolic congestive heart failure: Status: Acute (2) Acute hypoxemic respiratory failure: Status: Acute Plan 67-year-old male with known history of end-stage renal disease on hemodialysis presents with acute onset of shortness of breath chest pain. In the emergency room he was found to be hypoxic and placed on rescue BiPAP. He was noted to have blood pressures in the 210/120 range; these were treated aggressively and BiPAP was able to be removed. Nephrology was consulted and patient will receive dialysis urgently today. Hypotension, near syncopal episode (2 days back): Multifactorial(dialysis, blood pressure medications, anemia also might be contributing) Patient recived 500 mL bolus, 1 PRBC resolved. HTn: continue coreg and losartan. moniter bp anemia: Possibly secondary to ESRD Anemia workup added, denies any melena or any gross bleeding. given 1 PRBC Monitor H&h 10 hypokalemia/esrd: added meq. Acute systolic CHF-last echo 04/2022 demonstrated LVEF 20-25% -aggressive afterload reduction after hemodialysis chest pain: Troponin negative, EKG seems similar to before. Cardiology will see the patient due to labile blood pressure as well as chest pain-myocardial perfusion imaging shows no high risk features. LV gated EF appeared to be within normal limits. Acute hypoxic respiratory failure improving due to possible chf /uncontrolled htn: may have undiagnosed copd? abg noted-ph ok,boderline elevated pco2:53 cxr seems atelactasis , interstitial changes seems improved since the last chest x-ray improved with hd and htn control Added incentive spirometry, chest physiotherapy for atelectasis, taper oxygen.albuteol Hypertension (chronic) with hypertensive emergency -responded to therapies -good response to hemodialysis Hold all BP medications currently due to borderline blood pressure Heparin Full code ongoing hospitalization -for hypertension, labile blood pressure, anemia severe:need h/h monitering , htn monitering Quality Stroke Does the patient have a stroke diagnosis?: No VTE Prior VTE?: No VTE Risk Level:: Medical - moderate - high VTE Device Contraindication: Treatment Not Indicated VTE Drug Contraindication: N/A - Med Ordered
--- NOTE | 2023-08-29 12:40 | MHC.CM.PN ---
Patient has been medically cleared for dc to return to LTC/ SNF @ [facility] [place] today at 4 PM via [facility]. Patient was unavailable; CM spoke with Sister/Chantale @ [phone] and IMM was addressed.
--- NOTE | 2023-08-29 12:48 | PM.PNNEP ---
Subjective Subjective Date of Service: 08/29/23 Principal diagnosis: Atypical chest pain, ischemic cardiomyopathy, labile blood pressure Interval history: BP labile remains on 2L O2 Physical Exam Vital Signs: Vital Signs: Last Vital Signs Temp 97.8 F 08/29/23 11:13 Pulse 77 08/29/23 11:13 Resp 20 08/29/23 11:13 BP 172/75 H 08/29/23 11:13 Pulse Ox 99 08/29/23 11:13 O2 Del Method Nasal Cannula 08/29/23 11:13 O2 Flow Rate 3 08/29/23 11:13 Oxygen Flow Rate 3 08/25/23 12:45 BMI result Body Mass Index 67.4 Const: Other: Awake alert no acute distress. Breathing effortlessly on nasal cannula Orientation/consciousness: patient oriented x3 Resp: Auscultation: clear to auscultation bilaterally Cardio: Rate: regular rate Rhythm: regular rhythm GI: Other: Soft nontender nondistended normoactive bowel sounds Neuro: General: patient oriented x3 Extrem: Other: Bilateral above knee amputation Objective Data Labs 08/27/23 08:42 08/29/23 10:53 Labs: Laboratory Results - last 24 hr 08/29/23 10:53 Potassium 4.7 D Microbiology Microbiology Results: Microbiology 08/23/23 07:59 Blood - Venous Blood Culture - Final No growth after 5 days. 08/23/23 07:17 Blood - Venous Blood Culture - Final No growth after 5 days. Procedures Date of Service Date of Service: 08/29/23 Assessment & Plan Assessment and plan (1) End stage chronic kidney disease: Status: Acute (2) Acute hypoxemic respiratory failure: Status: Acute (3) Hypertensive emergency: Status: Acute (4) Ischemic cardiomyopathy: Status: Inactive (5) Hypertensive crisis: Status: Resolved (6) Pancytopenia: Status: Resolved Plan 67 yo AA man with ESRD in the setting of HTN and type II DM and PAD admitted with SOB 1. ESRD: HD - Next HD today On HD [facility] - [facility] - Kidney care pt 2. HTN: c/w Coreg 12.5 BID / Losartan 50mg c/w imdur on dialysis days will HOLD coreg and Losartan in AM 3. Anemia: Hb improved. s/p 1 unit PRBC Time Spent With Patient Time: Total time managing care of this patient today ____ minutes. Progress Note: Quality Stroke Does the patient have a stroke diagnosis?: No
--- NOTE | 2023-08-29 13:46 | P.DS_ITS ---
DS: Providers Provider Date of Service: 08/29/23 Date of admission: 08/23/23 10:49 Date of discharge: 08/29/23 Primary care physician: JOHNATHAN REYNOSO Consults: 08/23/23 10:52 Consult to Nephrology Routine Consulting Provider: [facility] Reason for consultation: ESRD Has provider been notified: Yes 08/25/23 10:16 Consult to Cardiology Routine Consulting Provider: [facility] Cardiovascular Services Reason for consultation: Chf excerebation Attending physician on discharge: Anju Acosta Discharging clinician: nAju Acosta DS: Diagnosis Discharge Diagnosis (1) End stage chronic kidney disease: Status: Acute (2) Acute hypoxemic respiratory failure: Status: Acute (3) Hypertensive emergency: Status: Acute (4) Ischemic cardiomyopathy: Status: Inactive (5) Hypertensive crisis: Status: Resolved (6) Pancytopenia: Status: Resolved DS: Summary Hospital Course Hospital Course: 67-year-old male history of end-stage kidney disease (on HD MWF last session thursday) , CAD, anemia, acute hypoxic respiratory failure, pancytopenia, pulmonary edema, ischemic cardiomyopathy presenting to the emergency department for complaints of substernal chest pain, shortness of breath ongoing for the past 3 hours. Patient reports that this started suddenly, chest pain in the substernal region, nonradiating, describes it as constant, stabbing. Shortness of breath at rest and with exertion. Patient wears 3 L nasal cannula at baseline however was moved up to 4 L, according to EMS patient received nitr oglycerin, this provided little relief to patient, and he has been saturating 95-97% EN route. He has aspirin allergy. Aspirin is not given. EMS also reported carbon dioxide levels in the facility were 11, however there unsure if this is a faulty read. Patient denies fevers, chills, recent sick contacts, cough, nausea, vomiting, abdominal pain, headache, vision changes, dizziness and weakness. ER Course Shortness of breath increased requiring BiPAP. Patient's x-ray consistent with acute CHF; was due for dialysis tomorrow Renal contacted dialysis will be done for today. Aggressive blood pressure control was achieved and patient was able to be removed from BiPAP. Repeat dialysis done 08/24 and tolerated well. Patient was restarted on normal medicines and blood pressure was well con trolled. At this point in time is medically acceptable to discharge back to long-term care. Hospital course: Patient was admitted for possible hypoxemic respiratory failure in the setting of ESRD, possible systolic CHF,anemia: Patient was given hemodialysis and 1 prbc - seemes sob seems improved to baseline . Patient is satting high 90s but does not want to remove his oxygen he says that he uses it chronically from 3-5 years, ABG was done during this admission seems like patient might have component of undiagnosed COPD: Added albuterol, considering tapering down oxygen in the rehab. May need outpatient pulmonary function test and pulmonary evaluation. Patient was seen by Cardiology:severe cardiomyopathy by last echocardiogram although gated LVEF looks within normal limits. Need limited echocardiogram and with no evidence of significant ischemia unlikely that the prior echocardiogram could have been stress-induced cardiomyopathy. He still has congestive heart failure related to hypertensive urgency in the setting of diastolic dysfunction and end-stage renal disease. Needs better control of his blood pressure. Low- salt diet needs to be pursued. Labile blood pressure: Patient had a near-syncope episode due to low blood pressure- hypertension medication changes made : Stop hydralazine, clonidine. Adjusted Coreg to 12.5 mg b.i.d., losartan 50 mg b.i.d.- these dose of medications including Coreg and losartan on non dialysis days and possible consider half doses after does on dialysis days. Permissive hypertension up to systolic 150. Low-salt diet. Also restrict fluid to 1.2 L a day. Above was discussed with patient's nephrology group. Assessment and plan coordination time spent 50 minute-patient understand and in agreement with above plan. Time Attestation Discharge coordination time: Greater than 30 minutes Quality: Safe Use of Opioids Does Pt have an Active Cancer Diagnosis on the Problem List?: No Quality: Stroke Does the patient have a stroke diagnosis?: No Physical Exam Vital Signs: Vital Signs: Last Vital Signs Temp 97.8 F 08/29/23 11:13 Pulse 77 08/29/23 11:13 Resp 20 08/29/23 11:13 BP 172/75 H 08/29/23 11:13 Pulse Ox 99 08/29/23 11:13 O2 Del Method Nasal Cannula 08/29/23 11:13 O2 Flow Rate 3 08/29/23 11:13 Oxygen Flow Rate 3 08/25/23 12:45 BMI result Body Mass Index 67.4 Appearance: Alert.? Oriented X3.? cvs: rrr, [id number] , no murmur res: clear to auscultation ,no rhonchii or wheezing abd: no rebound or guarding ,nt, bs present. ext upper :pulses present , no cyanosis . neuro: axo3 , nonfocal. DS: Data Data Completed and Pending Completed studies during hospitalization [Text1]: Procedures Insertion of Endotracheal Airway into Trachea, Via Natural or Artificial Opening (05/23/22) Insertion of Infusion Device into Superior Vena Cava, Percutaneous Approach (05/23/22) Performance of Urinary Filtration, Intermittent, Less than 6 Hours Per Day ( 09/06/22) Respiratory Ventilation, Less than 24 Consecutive Hours (05/23/22) Transfusion of Nonautologous Red Blood Cells into Peripheral Vein, Percutaneous Approach (09/06/22) Ultrasonography of Superior Vena Cava, Guidance (05/23/22) Labs on day of discharge: Laboratory Results - last 24 hr 08/29/23 10:53 Potassium 4.7 D Imaging Chest x-ray: Radiologist's impression: ITS Impressions Chest X-Ray 08/23/23 06:50 IMPRESSION: * Lungs are hypoinflated and suboptimally evaluated. * Interstitial and patchy pulmonary opacities are nonspecific but could represent noncardiogenic edema. A superimposed pneumonia would have to be excluded on the basis of clinical criteria. * Persistent small right pleural effusion. * Chronic renal osteodystrophy is suspected. Myocardial Perfusion Scan Nuc Med 08/25/23 12:00 Impression: 1. Myocardial perfusion imaging study shows possible mild ischemia in the basal inferolateral wall but otherwise normal perfusion. 2. Gated LVEF appears normal visually. Calculated values are likely not accurate. Correlate with echocardiogram. EKG component of the test reported separately. Chest X-Ray 08/27/23 10:39 IMPRESSION: 1. Significant interval improvement in previously noted airspace disease involving both lungs. 2. Mild bibasilar atelectasis and/or pneumonia. Discharge Plan Discharge Anticipated Discharge Date/Time: 08/29/23 13:34 Patient Disposition: Xfer [facility] Discharge Diagnosis: Acute systolic congestive heart failure,labile blood pressure ,ch anemia Referrals: [facility] [Outside] - 1 Week JOHNATHAN REYNOSO [Primary Care Provider] - 1 Week Discharge Medications: New losartan 50 mg Tablet 50 mg PO BID Qty: 30 0RF Protocol: Hold for SBP< HOLD for SBP < : 90 carvedilol 12.5 mg Tablet 12.5 mg PO BID Qty: 30 0RF Protocol: Hold for SBP/HR < HOLD for SBP < : 90 HOLD for HR < : 60 aspirin 81 mg Tablet,Delayed Release (Dr/Ec) 81 mg PO DAILY Qty: 30 0RF albuterol sulfate [Ventolin HFA] 90 mcg/actuation Hfa Aerosol Inhaler 2 puff inhalation RQ4H PRN (Reason: sob) Qty: 1 0RF Continued levothyroxine 200 mcg Tablet 200 mcg PO BEDTIME cholecalciferol (vitamin D3) 1,250 mcg (50,000 unit) Capsule 1,250 mcg PO QMONTH Rx Instructions: Every month on the brimonidine 0.2 % Drops 2 drp OPHTHALMIC (EYE) BID clonidine HCl 0.2 mg Tablet 0.2 mg PO TID@0900,1300,1700 Protocol: Hold for SBP< HOLD for SBP < : 110 pantoprazole 40 mg Tablet,Delayed Release (Dr/Ec) 40 mg PO BID docusate sodium 100 mg Capsule 100 mg PO BID vitamin B complex Tablet 1 tab PO DAILY atorvastatin 40 mg tablet 40 mg PO BEDTIME carvedilol 25 mg tablet 25 mg PO BID isosorbide mononitrate 60 mg tablet extended release 24 hr 60 mg PO DAILY Protocol: Hold for SBP< HOLD for SBP < : 100 pregabalin 50 mg capsule 50 mg PO BEDTIME sucralfate 1 gram tablet 1 g PO BID@0900,1700 sennosides [senna] 8.6 mg Tablet 8.6 mg PO Q12H PRN (Reason: Constipation) Discontinued nifedipine 90 mg tablet extended release 90 mg PO BID@0400,1700 hydralazine 25 mg Tablet 25 mg PO Q8H PRN (Reason: SBP >170) hydralazine 50 mg tablet 75 mg PO TID@0900,1300,1700 Protocol: Hold for SBP< HOLD for SBP < : 140 Discharge Orders: Discharge Order (Routine); Ordered 08/29/23 Ordered By: Anju Acosta Diet: Advance to usual diet Activity on Discharge: As tolerated Stand Alone Forms: Patient Portal Discharge page Care Plan Goals: Resume all pre-hospital medications and therapies. on Hd say bp meds -consider to use half of current doses coreg and losartan ( which iscoreg 6.25 mg and [id number] mg respectively). Health Concerns: Resume Thursday dialysis routine as outpatient Plan of Treatment: Follow-up with nephrology as scheduled. Further management as per receiving facility Assessment: See discharge summary
[2023-08-29 15:32] VITALS: BP 162/71; PULSE 78; RESP 12; TEMP 36.1; O2SAT 100
== END 2023-08-29 16:26 | DRG 291 ==
LOC: HO.ED 08:28 → HO.EDOVER 10:53 → HO.IMC 14:16
PROVIDERS: Emergency Medicine; Physician Assistant; Admitting Provider Hospitalist; Emergency Provider Emergency Medicine; PCP Emergency Medicine; Visit Provider Internal Medicine
DX: I13.2 Hypertensive heart and chronic kidney disease with heart failure and with stage 5 chronic kidney disease, or end stage renal disease (principal); I50.21 Acute systolic (congestive) heart failure; J96.01 Acute respiratory failure with hypoxia; N18.6 End stage renal disease; Z68.44 Body mass index [BMI] 60.0-69.9, adult; I16.1 Hypertensive emergency; D61.818 Other pancytopenia; I25.10 Atherosclerotic heart disease of native coronary artery without angina pectoris; D63.1 Anemia in chronic kidney disease; E11.22 Type 2 diabetes mellitus with diabetic chronic kidney disease; Z89.611 Acquired absence of right leg above knee; E87.6 Hypokalemia; E11.51 Type 2 diabetes mellitus with diabetic peripheral angiopathy without gangrene; I25.5 Ischemic cardiomyopathy; E66.09 Other obesity due to excess calories; Z71.3 Dietary counseling and surveillance; Z20.822 Contact with and (suspected) exposure to COVID-19; Z99.2 Dependence on renal dialysis; Z89.612 Acquired absence of left leg above knee; Z99.81 Dependence on supplemental oxygen; Z87.891 Personal history of nicotine dependence; Z79.890 Hormone replacement therapy; Z79.899 Other long term (current) drug therapy
CPT/HCPCS: 0241U; 36415; 36600; 71045; 78452; 80048; 80076; 82375; 82607; 82728; 82746; 82803; 82947; 83540; 83605; 83690; 83880; 84132; 84145; 84484; 85014; 85018; 85025; 85049; 85610; 86850; 86870; 86900; 86901; 86902; 86905; 86920; 86922; 87040; 90999; 93005; 93017; 93306; 99285; J0280; J0360; J1644; J1940; J2270; J2305; J2785; J3010; P9016; Q9957

== ENCOUNTER 2023-08-23 10:49 | Outpatient (BNV) | payer MEDICARE, MEDICAID, SELFPAY | END 2023-08-25 15:15 | PROVIDERS: Admitting Provider Hospitalist; Emergency Provider Emergency Medicine; PCP Emergency Medicine; Visit Provider Nurse Practitioner | DX: I25.10 Atherosclerotic heart disease of native coronary artery without angina pectoris (principal) | CPT/HCPCS: 78452; 93016; 93018 ==

== ENCOUNTER 2023-08-23 10:49 | Outpatient (BNV) | payer MEDICARE, MEDICAID, SELFPAY | END 2023-08-28 07:00 | PROVIDERS: Admitting Provider Hospitalist; Emergency Provider Emergency Medicine; PCP Emergency Medicine; Visit Provider Internal Medicine Cardiovascular Disease | DX: I35.0 Nonrheumatic aortic (valve) stenosis (principal) | CPT/HCPCS: 93306 ==

== ENCOUNTER → 2023-08-23 10:49 | Outpatient (BNV) | payer MEDICARE, MEDICAID, SELFPAY | PROVIDERS: Admitting Provider Hospitalist; Emergency Provider Emergency Medicine; PCP Emergency Medicine; Visit Provider Hospitalist | DX: N18.6 End stage renal disease (principal); J96.01 Acute respiratory failure with hypoxia; I25.5 Ischemic cardiomyopathy; I16.9 Hypertensive crisis, unspecified; D61.818 Other pancytopenia | CPT/HCPCS: 99223; 99231; 99232; 99233; 99239 ==

== ENCOUNTER → 2023-08-23 10:49 | Outpatient (BNV) | payer MEDICARE, MEDICAID, SELFPAY | PROVIDERS: Admitting Provider Hospitalist; Emergency Provider Emergency Medicine; PCP Emergency Medicine; Visit Provider Internal Medicine Cardiovascular Disease | DX: I50.21 Acute systolic (congestive) heart failure (principal); R09.89 Other specified symptoms and signs involving the circulatory and respiratory systems | CPT/HCPCS: 99223; 99233 ==

== ENCOUNTER 2023-10-01 19:19 | Emergency (ER) | payer MEDICARE, MEDICAID, SELFPAY ==
[2023-10-01 19:32] VITALS: BP 164/48; PULSE 68; RESP 19; TEMP 36.7; O2SAT 100
[2023-10-01 19:35] VITALS: BP 212/87; PULSE 84; O2SAT 100; BMI 44.5
--- NOTE | 2023-10-01 19:44 | ED.GENADULT ---
HPI - General Adult General Chief complaint: General Medical Stated complaint: Headache, HTN (212/88) Time Seen by Provider: 10/01/23 19:30 Source: patient, EMS and old records reviewed Mode of arrival: EMS Limitations: no limitations History of Present Illness HPI narrative: 67-year-old male history of end-stage kidney disease on hemodialysis last session was yesterday, CAD, anemia, acute hypoxic respiratory failure, pancytopenia, pulmonary edema, ischemic cardiac myopathy, essential hypertension poorly controlled patient has an appointment with logistical engineer tomorrow for blood pressure control. Came in for evaluation of severe headache for the past 2 weeks that partially relieved by Tylenol extra-strength. patient also is complaining of occasional mid chest pain with no radiation, patient has no chest pain today. As reported by nursing staff blood pressure is running [id number]. as reported by the nurse before sending to the hospital blood pressure was 223/74 and patient received a dose of clonidine 0.2 mg p.o. before arrival now his blood pressure is 164/48. patient also complaining of left ear pain that patient think is causing his severe headache. patient lives at assisted living mostly independently using a wheelchair. Related Data Home Medications Medication Instructions Recorded Confirmed brimonidine 0.2 % eye drops 2 drp ophthalmic (eye) BID 05/23/22 08/23/23 clonidine HCl 0.2 mg tablet 0.2 mg PO TID@0900,1300,1700 05/23/22 08/23/23 docusate sodium 100 mg capsule 100 mg PO BID 05/23/22 08/23/23 pantoprazole 40 mg tablet,delayed 40 mg PO BID 05/23/22 08/23/23 release vitamin B complex 1 tab PO DAILY 05/23/22 08/23/23 cholecalciferol (vitamin D3) 1,250 1,250 mcg PO QMONTH 08/23/22 08/23/23 mcg (50,000 unit) capsule levothyroxine 200 mcg tablet 200 mcg PO BEDTIME 08/23/22 08/23/23 atorvastatin 40 mg tablet 40 mg PO BEDTIME 08/23/23 08/23/23 carvedilol 25 mg tablet 25 mg PO BID 08/23/23 08/23/23 isosorbide mononitrate 60 mg 60 mg PO DAILY 08/23/23 08/23/23 tablet,extended release 24 hr pregabalin 50 mg capsule 50 mg PO BEDTIME 08/23/23 08/23/23 sennosides 8.6 mg tablet (senna) 8.6 mg PO Q12H PRN Constipation 08/23/23 08/23/23 sucralfate 1 gram tablet 1 g PO BID@0900,1700 08/23/23 08/23/23 Previous Rx's Medication Instructions Recorded albuterol sulfate 90 mcg/actuation 2 puff inhalation RQ4H PRN sob #1 g 08/29/23 aerosol inhaler (Ventolin HFA) aspirin 81 mg tablet,delayed 81 mg PO DAILY #30 tabs 08/29/23 release carvedilol 12.5 mg tablet 12.5 mg PO BID #30 tabs 08/29/23 losartan 50 mg tablet 50 mg PO BID #30 tabs 08/29/23 amoxicillin 875 mg-potassium 1 tab PO BID #14 tabs 10/01/23 clavulanate 125 mg tablet ofloxacin 0.3 % ear drops 10 drp otic (ear) left DAILY 7 10/01/23 days #10 mL Allergies Allergy/AdvReac Type Severity Reaction Status Date / Time bee pollen [bee stings] Allergy Angioedema Verified 09/06/22 01:36 lisinopril Allergy Cough Verified 09/06/22 01:35 Review of Systems Review of Systems: all other systems are reviewed and are negative Constitutional: Reports as per HPI and Reports no additional constitutional complaints Eyes: Reports as per HPI and Reports no additional eye complaints Reports system reviewed and no additional complaints, except as documented Cardiovascular: Reports as per HPI and Reports no additional cardiovascular complaints Respiratory: Reports as per HPI and Reports no additional respiratory complaints Gastrointestinal: Reports as per HPI and Reports no additional gastrointestinal complaints Genitourinary: Reports no additional female genitourinary complaints Musculoskeletal: Reports no additional musculoskeletal complaints Skin/Breast: Reports system reviewed and no additional complaints, except as docu Psychiatric: Reports no additional psychiatric complaints Endocrine: Reports no additional endocrine complaints Hematologic/Lymphatic: Reports no additional hematologic/lymphatic complaints Allergic/Immunologic: Reports no additional allergic/immunologic complaints Reports system reviewed and no additional complaints, except as documented and Reports Abnormal speech present PMFSH Past Medical History Onset Date is defined in the Problem List Problems that require an onset date and time if occurred within 24 hrs of arrival to the ED Aortic Dissection and Rupture; Neurologic impairment; Cardiopulmonary Arrest; Endotracheal Intubation; Insertion or Replacement of Mechanical Circulatory Assist Device Medical History 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 Myocardial infarction involving left anterior descending (LAD) coronary artery Ischemic cardiomyopathy CKD (chronic kidney disease) requiring chronic dialysis Anemia Essential hypertension End stage chronic kidney disease Social History Social History Household Members: Other Household Members Other:: [facility] Housing: Assisted Living Facility Housing Other:: [facility] Do you presently have visiting nurse or other home services: Yes (assisted living facility) Unable to assess alcohol history related to: Unable to respond Alcohol intake: former Patient Tobacco Use Status: Former Tobacco user Quit Date: 20 YEARS AGO Tobacco use type: Cigarette Years Smoked: 20 e-Cigarette/Vaping Use: Never Used Second Hand Smoke Exposure: No Substance Use Type: Marijuana Advance Directives: Yes Advance Directives on File: Yes Advance Directives Date on File: 05/26/22 service: No Physical Exam ED Vital Signs: Vital Signs - 24 hr 10/01/23 19:32 Temperature 98.1 F Pulse Rate 68 Respiratory Rate 19 Blood Pressure 164/48 H Pulse Oximetry 100 Oxygen Delivery Method Nasal Cannula Oxygen Flow Rate 3 BMI result Body Mass Index 44.5 Vital signs have been reviewed and appear to be correct. Blood pressure elevated. Heart rate normal. Respiratory rate normal. Temperature normal. Oxygen saturation normal. Appearance: Alert. Oriented X3. No acute distress. Head: Normal external exam. Normocephalic. Atraumatic. No Goodrich signs noted. No raccoon eyes noted Eyes: PERRLA. EOMI. Conjunctiva and sclera normal. Eyelids normal. ENT: TM's Normal. cerumen in both external auditory canal, left ear is tender on exam Neck: Normal inspection. Neck supple. FROM. No adenopathy. Thyroid Normal. No meningeal signs. No neck mass noted. CVS: Normal heart rate and rhythm. Heart sound normal. No murmurs noted. Pulses normal throughout. Respiratory: No respiratory distress. Painless inspiration. Breath sounds normal. No wheezes/rales/rhonchi noted. Chest nontender. No accessory muscle usage noted or decreased air movement noted. Abdomen: Soft and nontender. Bowel sounds normal in all 4 quadrants. No distention noted. No organomegaly noted. No visible injury noted. Back: No CVA tenderness. Full range of motion noted. Skin: Skin warm and dry. Normal skin color. Normal skin turgor. No rashes/lesions/lacerations noted. Extremities: No lower extremity edema. Extremities exhibit normal range of motion. Extremities nontender. Neuro: Oriented X 3. Cranial nerve exam: II-XII are grossly intact No motor deficit. No sensory deficit. Reflexes normal. Course Reevaluation(s) Reevaluation #1: 68-year-old male end-stage renal disease with essential hypertension came in for multiple symptoms. 1. Severe headache for the past few weeks that is partially relieved with Tylenol, patient is also complaining of left ear pain your exam is consistent with cerumen impaction with otitis externa in the left ear which can aggravate his headache, patient had a negative head CT and normal neuro exam. 2. Elevated blood pressure blood pressure in the emergency department is 164/48. 3. On dialysis due for dialysis tomorrow morning. 4. Anemia H&H is 7.3/22.7 patient had anemia in the past which is due to blood loss from GI, the patient declined having any GI bleed and refuse having rectal exam to check for blood in the stool patient will be referred to recovery coordinator and the patient agreed to that. Time: 22:30 Medications Administered Discontinued Medications Generic Name Dose Route Start Last Admin Trade Name Freq PRN Reason Stop Dose Admin Amoxicillin/Clavulanate Potassium 875 mg 10/01/23 20:52 10/01/23 22:08 Amoxicillin/Potassium Clav 875 Mg Tablet PO 10/01/23 20:53 875 mg ONCE ONE Administration Neomycin/Polymyxin/Hydrocortisone 4 drop 10/01/23 20:52 10/01/23 22:07 Neomycin/Polymyxin/Hc Otic Candida Bottle EAR-LEFT 10/01/23 20:53 4 drop ONCE ONE Administration Medical Decision Making Differential Diagnosis Differential Diagnoses: The differential diagnosis associated with the presentation includes ( ACS, hypertensive emergency, otitis externa, otitis media, cerumen impaction, electrolyte abnormality, severe anemia, GI bleed.) Admission/Observation Consideration of admission/observation: Escalation of care including admission/observation considered Lab Data MDM Lab Attestation statement: I reviewed the patient's lab results. 10/01/23 21:21 10/01/23 21:21 Labs: Lab Results 10/01/23 Range/Units 21:21 WBC 3.0 L (4.8-10.8) X10*3/uL RBC 2.27 L (4.60-5.80) X10*6/uL Hgb 7.3 L D (14.0-18.0) g/dl Hct 22.7 L D (42.0-52.0) % MCV 100.0 H (80.0-98.0) fL MCH 32.2 (27.0-33.0) pg MCHC 32.2 (31.0-36.0) g/dl RDW 19.4 H (11.0-16.0) % Plt Count 57 L D (160-400) X10*3/uL MPV TNP Immature Gran % (Auto) 0.7 H (0.0-0.4) % Neut % (Auto) 68.4 (45-73) % Lymph % (Auto) 17.3 L (20-40) % [place] % (Auto) 9.6 (2-11) % Eos % (Auto) 3.7 (0-4) % Baso % (Auto) 0.3 (0-2) % Lymph # (Auto) 0.5 L (1.2-4.9) X10*3/uL [place] # (Auto) 0.3 (0.1-1.2) X10*3/uL Eos # (Auto) 0.1 (0.0-0.4) X10*3/uL Baso # (Auto) 0.0 (0.0-0.2) X10*3/uL Abs Immat Gran (auto) 0.02 (0.00-0.03) X10*3/uL Absolute Neuts (auto) 2.1 (2.0-8.3) x10*3/uL Absolute Nucleated RBC 0.000 (0.0-0.012) X10*3/uL Nucleated RBC % (auto) 0.0 (0.0-0.2) /100WBC Sodium 143 (135-145) mmol/L Potassium 4.1 (3.3-5.1) mmol/L Chloride 102 (96-108) mmol/L Carbon Dioxide 27 (22-29) mmol/L Anion Gap 18 (12-20) BUN 36 H (9-16) mg/dL Creatinine 7.85 H* (0.5-1.4) mg/dL Estim Creat Clear Calc 5.0 Estimated GFR 7 Random Glucose 133 H (60-115) mg/dL Calcium 8.8 D (8.4-10.2) mg/dL Total Bilirubin 0.7 (0.0-1.0) mg/dL Direct Bilirubin 0.2 (0.0-0.5) mg/dL AST 17 (5-37) U/L ALT 6 (0-40) U/L Alkaline Phosphatase 90 (39-117) U/L Troponin I High Sens 25.9 D (<3.5-35.0) ng/L Total Protein 7.5 (6.5-8.0) g/dL Albumin 4.0 (3.5-5.0) g/dL Lipase 40 (8-78) U/L Influenza Type A (PCR) NEGATIVE (Negative) Influenza Type B (PCR) NEGATIVE (Negative) RSV RNA Qual (PCR) NEGATIVE (Negative) SARS-CoV-2 RNA (RT-PCR) NEGATIVE (Negative) Independent Interpretation I performed an independent interpretation of an: EKG ( Normal sinus rhythm at 65 beats per minutes, nonspecific T-wave flattening and inversions, no significant change from previous EKG) and CT Scan ( Head: No acute intracranial pathology.) Radiology Impression Discussion of test interpretation with radiology: I have reviewed the radiologist's reading. Chronic Conditions Patient?s care impacted by: Hypertension and Other ( end-stage renal disease/dialysis) Discharge Plan Discharge Clinical Impression: Essential hypertension, Cerumen impaction, Otitis externa, Anemia Patient Disposition: Xfer [facility] Instructions: Otitis Externa (ED) Prescriptions: New amoxicillin-pot clavulanate 875-125 mg tablet 1 tab PO BID Qty: 14 0RF ofloxacin 0.3 % drops 10 drp otic (ear) left DAILY 7 Days Qty: 10 0RF No Action levothyroxine 200 mcg Tablet 200 mcg PO BEDTIME cholecalciferol (vitamin D3) 1,250 mcg (50,000 unit) Capsule 1,250 mcg PO QMONTH Rx Instructions: Every month on the brimonidine 0.2 % Drops 2 drp OPHTHALMIC (EYE) BID clonidine HCl 0.2 mg Tablet 0.2 mg PO TID@0900,1300,1700 Protocol: Hold for SBP< HOLD for SBP < : 110 pantoprazole 40 mg Tablet,Delayed Release (Dr/Ec) 40 mg PO BID docusate sodium 100 mg Capsule 100 mg PO BID vitamin B complex Tablet 1 tab PO DAILY atorvastatin 40 mg tablet 40 mg PO BEDTIME carvedilol 25 mg tablet 25 mg PO BID isosorbide mononitrate 60 mg tablet extended release 24 hr 60 mg PO DAILY Protocol: Hold for SBP< HOLD for SBP < : 100 pregabalin 50 mg capsule 50 mg PO BEDTIME sucralfate 1 gram tablet 1 g PO BID@0900,1700 sennosides [senna] 8.6 mg Tablet 8.6 mg PO Q12H PRN (Reason: Constipation) losartan 50 mg Tablet 50 mg PO BID Qty: 30 0RF Protocol: Hold for SBP< HOLD for SBP < : 90 carvedilol 12.5 mg Tablet 12.5 mg PO BID Qty: 30 0RF Protocol: Hold for SBP/HR < HOLD for SBP < : 90 HOLD for HR < : 60 aspirin 81 mg Tablet,Delayed Release (Dr/Ec) 81 mg PO DAILY Qty: 30 0RF albuterol sulfate [Ventolin HFA] 90 mcg/actuation Hfa Aerosol Inhaler 2 puff inhalation RQ4H PRN (Reason: sob) Qty: 1 0RF Referrals: Yamini Grande MD [Physician] -
[2023-10-01 21:26] LABS: MANUAL DIFF FLAG NO
[2023-10-01 21:28] LABS: Basophils Percent Auto 0.3 % (0-2); Eosinophils Absolute Auto 0.1 X10*3/uL (0.0-0.4); Eosinophils Percent Auto 3.7 % (0-4); Hematocrit 22.7 % (42.0-52.0); Hemoglobin 7.3 g/dl (14.0-18.0); Imm Gran Abs Auto 0.02 X10*3/uL (0.00-0.03); Imm Gran Pct Auto 0.7 % (0.0-0.4); Lymphocytes Absolute Auto 0.5 X10*3/uL (1.2-4.9); Lymphocytes Percent Auto 17.3 % (20-40); Mean Corpuscular HGB Conc 32.2 g/dl (31.0-36.0); Mean Corpuscular Hemoglobin 32.2 pg (27.0-33.0); Monocytes Absolute Auto 0.3 X10*3/uL (0.1-1.2); Monocytes Percent Auto 9.6 % (2-11); Neutrophils Absolute Auto 2.1 x10*3/uL (2.0-8.3); Neutrophils Percent Auto 68.4 % (45-73); Platelet Count 57 X10*3/uL (160-400); Red Blood Count 2.27 X10*6/uL (4.60-5.80); Red Cell Distribution Width 19.4 % (11.0-16.0)
[2023-10-01 21:53] LABS: Alanine Aminotransferase 6 U/L (0-40); Alkaline Phosphatase 90 U/L (39-117); Anion Gap 18 (12-20); Aspartate Amino Transferase 17 U/L (5-37); Bilirubin Direct 0.2 mg/dL (0.0-0.5); Bilirubin Total 0.7 mg/dL (0.0-1.0); Blood Urea Nitrogen 36 mg/dL (9-16); Calcium 8.8 mg/dL (8.4-10.2); Carbon Dioxide 27 mmol/L (22-29); Chloride 102 mmol/L (96-108); Estimated Glomerular Filt Rate 7; Glucose Random 133 mg/dL (60-115); Lipase 40 U/L (8-78); Potassium 4.1 mmol/L (3.3-5.1); Sodium 143 mmol/L (135-145); Total Protein 7.5 g/dL (6.5-8.0)
[2023-10-01 23:24] VITALS: BP 168/54; PULSE 65; RESP 18; O2SAT 100
--- NOTE | 2023-10-02 00:33 | PC.NURSE ---
this rn called and gave report to altaf seay at [facility] prior to sending pt back. this rn gave report to ems prior to transport. discharge packet provided with ems to provide to [facility] staff
== END 2023-10-02 00:37 | disposition skilled nursing facility (03) ==
PROVIDERS: Emergency Provider Emergency Medicine
DX: I12.0 Hypertensive chronic kidney disease with stage 5 chronic kidney disease or end stage renal disease (principal); N18.6 End stage renal disease; D64.9 Anemia, unspecified; Z99.2 Dependence on renal dialysis; H61.23 Impacted cerumen, bilateral; H60.92 Unspecified otitis externa, left ear; Z20.822 Contact with and (suspected) exposure to COVID-19; Z20.828 Contact with and (suspected) exposure to other viral communicable diseases; Z87.891 Personal history of nicotine dependence
CPT/HCPCS: 0241U; 36415; 70450; 71045; 80048; 80076; 83690; 84484; 85025; 93005; 99284

== ENCOUNTER → 2023-10-01 19:30 | Outpatient (BNV) | payer MEDICARE, MEDICAID, SELFPAY | PROVIDERS: Emergency Provider Emergency Medicine; Visit Provider Internal Medicine Cardiovascular Disease | DX: I45.81 Long QT syndrome (principal) | CPT/HCPCS: 93010 ==

== ENCOUNTER 2023-10-11 09:56 | Inpatient (IN) | payer MEDICARE, MEDICAID, SELFPAY ==
[2023-10-11] VITALS (14 sets, daily range): BP systolic 113–229; BP diastolic 60–130; PULSE 76–129; RESP 16–45; TEMP 36.2–36.3; O2SAT 92–100; BMI 161.4
--- NOTE | ~2023-10-11 | XR_ITS ---
EXAMINATION: XR CHEST CLINICAL INFORMATION: Reason for Exam shortness of breath COMPARISON: Chest radiograph 10/01/2023 TECHNIQUE: One view of the chest FINDINGS: Lines and tubes: EKG leads overlie the patient. Median sternotomy wires and mediastinal surgical clips. Left axillary vascular stent. New patchy multifocal parenchymal airspace opacities. New small right pleural effusion and suspect layering new left pleural effusion. No pneumothorax. Unchanged cardiomediastinal silhouette. XR/XR chest 1V IMPRESSION: 1. New patchy multifocal parenchymal airspace opacities and new small bilateral pleural effusions, suspicious for pulmonary edema setting although multifocal infection could appear similar.
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
--- NOTE | 2023-10-11 10:05 | ECG_ITS ---
Test Reason : DYSPNEA/CHEST PAIN Blood Pressure : / mmHG Vent. Rate : 096 BPM Atrial Rate : 096 BPM P-R Int : 154 ms QRS Dur : 074 ms QT Int : 356 ms P-R-T Axes : 048 -01 125 degrees QTc Int : 449 ms Poor data quality, interpretation may be adversely affected Normal sinus rhythm Possible Left atrial enlargement Anterior infarct , age undetermined Nonspecific ST and T wave abnormality Abnormal ECG When compared with ECG of 01-OCT-2023 21:20, T wave inversion more evident in Lateral leads Referred By: Binh Quiros Electronically Signed By:NAVNEET TOMLINSON
[2023-10-11] MEDS: Albuterol Sulfate (0.083%) 2.5 MG/3 ML VIAL.NEB 10 MG INHALE (10:12)
[2023-10-11 10:17] LABS: MANUAL DIFF FLAG NO
[2023-10-11] MEDS: Nitroglycerin 2 % Oint 1 GM Packet 1 INCH TRANSDERMA ×2 (10:19→10:39)
[2023-10-11 10:23] LABS: Basophils Absolute Auto 0.1 X10*3/uL (0.0-0.2); Basophils Percent Auto 0.7 % (0-2); Eosinophils Absolute Auto 0.4 X10*3/uL (0.0-0.4); Eosinophils Percent Auto 3.6 % (0-4); Hematocrit 39.5 % (42.0-52.0); Hemoglobin 12.6 g/dl (14.0-18.0); Imm Gran Abs Auto 0.04 X10*3/uL (0.00-0.03); Imm Gran Pct Auto 0.4 % (0.0-0.4); Lymphocytes Absolute Auto 2.4 X10*3/uL (1.2-4.9); Lymphocytes Percent Auto 23.1 % (20-40); Mean Corpuscular HGB Conc 31.9 g/dl (31.0-36.0); Mean Corpuscular Hemoglobin 30.7 pg (27.0-33.0); Mean Corpuscular Volume 96.1 fL (80.0-98.0); Monocytes Absolute Auto 0.8 X10*3/uL (0.1-1.2); Monocytes Percent Auto 7.6 % (2-11); Neutrophils Absolute Auto 6.7 x10*3/uL (2.0-8.3); Neutrophils Percent Auto 64.6 % (45-73); Platelet Count 139 X10*3/uL (160-400); Red Blood Count 4.11 X10*6/uL (4.60-5.80); Red Cell Distribution Width 20.3 % (11.0-16.0); White Blood Count 10.3 X10*3/uL (4.8-10.8)
[2023-10-11] MEDS: Furosemide 100 MG/10 ML VIAL 80 MG IVPUSH (10:25)
--- NOTE | 2023-10-11 10:34 | PC.NURSE ---
Arrived via ems in respiratory distress on nasal cannula. Transfered into ED 5, respiratory at bedside placed on bipap at 12/6 at 50% sating 93%. 2 ivs placed in left arm. Fistula used for dilaysis in right arm. complaining of 10/10 chest pain, bp 229/122- nitro patch placed. Sinus tacy on monitor. medicated per mar, patient alert and oriented reports does not usually have urine output. Labs drawn per order
[2023-10-11 10:40] LABS: B Type Natriuretic Peptide 1877 pg/mL (<100); Troponin-I High Sensitivity 33.6 ng/L (<3.5-35.0)
[2023-10-11 10:46] LABS: Alanine Aminotransferase 17 U/L (0-40); Albumin Level 4.2 g/dL (3.5-5.0); Alkaline Phosphatase 100 U/L (39-117); Anion Gap 23 (12-20); Aspartate Amino Transferase 34 U/L (5-37); Bilirubin Direct 0.3 mg/dL (0.0-0.5); Bilirubin Total 0.8 mg/dL (0.0-1.0); Blood Urea Nitrogen 26 mg/dL (9-16); C Reactive Protein 0.95 mg/dL (< or = 0.50); Calcium 9.1 mg/dL (8.4-10.2); Carbon Dioxide 24 mmol/L (22-29); Chloride 99 mmol/L (96-108); Creatinine Clr Calc Pharmacy 0.5; Estimated Glomerular Filt Rate 7; Glucose Random 154 mg/dL (60-115); Potassium 4.5 mmol/L (3.3-5.1); Sodium 141 mmol/L (135-145); Total Protein 8.3 g/dL (6.5-8.0)
--- NOTE | 2023-10-11 10:47 | PC.NURSE ---
Patient reports had transfusion at [facility] yesterday provider aware
[2023-10-11 11:00] LABS: COVID-19 Test Negative (Negative); IDNOW Serial# 08D9AD1C
[2023-10-11 11:08] LABS: IDNOW Serial# 152EDE1D; Influenza A Negative (Negative); Influenza B2 Negative (Negative)
--- NOTE | 2023-10-11 11:23 | PC.NURSE ---
Patient reports feeling better, vss, no longer reports chest pain
[2023-10-11 11:48] LABS: Venous Blood Gas Refer to POC result
--- NOTE | 2023-10-11 12:14 | PC.NURSE ---
Patient placed on nasal cannula by RT. Patient requested BIPAP mask, SPO2 noted 94% and increase work of breathing on Nasal cannula. Patient placed on NRB at 15LPM O2 per MD with improvements. Patient reports pain in left stump and head, reports fall from toilet earlier today.
[2023-10-11] MEDS: Acetaminophen 325 MG TABLET 975 MG PO (12:25)
--- NOTE | 2023-10-11 12:40 | PC.NURSE ---
Transitioned from 15L via non-rebreather to 11L via oxy masks sating 100%
--- NOTE | 2023-10-11 13:25 | PC.NURSE ---
Report given to dialysis, transport notified
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
[2023-10-11] MEDS: 0.9 % Sodium Chloride Flush 3 ML SYRINGE IVFLUSH ×2 (16:45→23:00)
--- NOTE | 2023-10-11 17:55 | PHA.MEDREC ---
Pharmacy Consult ? Medication Reconciliation Pharmacy has completed the medication reconciliation. LIST OBTAINED FROM [facility]
--- NOTE | 2023-10-11 21:38 | P.PNNP_ITS ---
Subjective Subjective Date of Service: 10/11/23 Interval history: Pt with SOB On BIPAP seen in ER Seen on HD aftet Physical Exam 2 Vital Signs: Vital Signs: Last Vital Signs Temp 97.3 F 10/11/23 20:00 Pulse 84 10/11/23 20:00 Resp 18 10/11/23 20:00 BP 190/85 H 10/11/23 20:00 Pulse Ox 97 10/11/23 20:00 O2 Del Method Nasal Cannula 10/11/23 20:00 O2 Flow Rate 3 10/11/23 20:00 BMI result Body Mass Index 161.4 Appearance: Alert.? Oriented X3.? cvs: rrr, [id number] , no murmur res: clear to auscultation ,no rhonchii or wheezing abd: no rebound or guarding ,nt, bs present. ext upper :pulses present , no cyanosis . neuro: axo3 , nonfocal. Objective Data Labs 10/11/23 10:13 10/11/23 10:13 Labs: Laboratory Results - last 24 hr 10/11/23 10/11/23 10:13 10:43 WBC 10.3 RBC 4.11 L D Hgb 12.6 L D Hct 39.5 L D MCV 96.1 MCH 30.7 MCHC 31.9 RDW 20.3 H Plt Count 139 L D MPV Not Reportable Immature Gran % (Auto) 0.4 Neut % (Auto) 64.6 Lymph % (Auto) 23.1 [place] % (Auto) 7.6 Eos % (Auto) 3.6 Baso % (Auto) 0.7 Lymph # (Auto) 2.4 [place] # (Auto) 0.8 Eos # (Auto) 0.4 Baso # (Auto) 0.1 Abs Immat Gran (auto) 0.04 H Absolute Neuts (auto) 6.7 Absolute Nucleated RBC 0.000 Nucleated RBC % (auto) 0.0 Sodium 141 Potassium 4.5 Chloride 99 Carbon Dioxide 24 Anion Gap 23 H BUN 26 H Creatinine 7.78 H* Estim Creat Clear Calc 0.5 Estimated GFR 7 Random Glucose 154 H Calcium 9.1 Magnesium 2.0 Total Bilirubin 0.8 Direct Bilirubin 0.3 AST 34 ALT 17 Alkaline Phosphatase 100 Troponin I High Sens 33.6 C-Reactive Protein 0.95 H B-Natriuretic Peptide 1877 H Total Protein 8.3 H Albumin 4.2 COVID-19 (ELENA) Negative COVID-19 Clin Com See Note Influenza Type A (JAELYN) Negative Influenza Type B (JAELYN) Negative Influenza A & B Note See Note Procedures Date of Service Date of Service: 10/11/23 Assessment & Plan Assessment and plan (1) End stage chronic kidney disease: Status: Inactive Assessment and Plan: 68 yo AA man with ESRD in the setting of HTN and type II DM and PAD admitted with SOB 1. ESRD: HD 2. CHF / Vol Overload 3. HTN 4. AMS 5. Anemia Pt with vol Overload HD today x 2.5 liters HD again in AM [facility] pt Continue BP meds Low salt diet Low K diet Fluid restriction F/u H/h Thx (2) Acute hypoxemic respiratory failure: Status: Resolved (3) Hypertensive emergency: Status: Resolved (4) Ischemic cardiomyopathy: Status: Inactive (5) Hypertensive crisis: Status: Resolved (6) Pancytopenia: Status: Resolved Plan 67 yo AA man with ESRD in the setting of HTN and type II DM and PAD admitted with SOB 1. ESRD: HD - Next HD today On HD MWF - [facility] pt 2. HTN: c/w Coreg 12.5 BID / Losartan 50mg c/w imdur on dialysis days will HOLD coreg and Losartan in AM 3. Anemia: Hb improved. s/p 1 unit PRBC Time Spent With Patient Time: Total time managing care of this patient today ____ minutes. Progress Note: Quality Stroke Does the patient have a stroke diagnosis?: No
[2023-10-11] MEDS: Pregabalin 50 MG CAPSULE PO (22:27)
[2023-10-11] MEDS: Atorvastatin Calcium 40 MG TABLET PO (22:27)
[2023-10-11] MEDS: Acetaminophen 325 MG TABLET 650 MG PO (22:27)
[2023-10-11] MEDS: Melatonin 3 MG TABLET 6 MG PO (22:29)
[2023-10-11] MEDS: carvediloL 25 MG TABLET PO (22:30)
[2023-10-11] MEDS: hydrALAZINE HCl 25 MG TABLET PO (22:30)
[2023-10-11] MEDS: Losartan Potassium 50 MG TABLET PO (22:31)
[2023-10-11] MEDS: Heparin Sodium,Porcine 5,000 UNIT/ML VIAL 5000 UNIT SUBCUT (22:40)
[2023-10-11] MEDS: Brimonidine Tartrate 0.2% Oph 5 ML BOTTLE 2 DROP EYE-BOTH (22:53)
[2023-10-12] VITALS (8 sets, daily range): BP systolic 110–205; BP diastolic 58–95; PULSE 69–76; RESP 17–20; TEMP 36–36.6; O2SAT 99–100
[2023-10-12] MEDS: Omeprazole 20 MG CAPSULE.DR PO ×2 (05:29→17:27)
[2023-10-12] MEDS: hydrALAZINE HCl 10 MG TABLET PO (05:29)
[2023-10-12] MEDS: Levothyroxine Sodium 200 MCG TABLET PO (05:30)
[2023-10-12] MEDS: Losartan Potassium 50 MG TABLET PO ×2 (08:18→22:08)
[2023-10-12] MEDS: carvediloL 25 MG TABLET PO ×2 (08:18→22:08)
[2023-10-12] MEDS: Isosorbide Mononitrate 60 MG TAB.ER.24H PO (08:18)
[2023-10-12] MEDS: cloNIDine HCL 0.2 MG TABLET PO ×2 (08:18→17:27)
[2023-10-12] MEDS: hydrALAZINE HCl 25 MG TABLET PO ×2 (08:18→22:08)
[2023-10-12] MEDS: Multivitamin TABLET 1 TAB PO (08:19)
[2023-10-12] MEDS: Sucralfate 1 GM TABLET PO ×2 (08:19→17:27)
[2023-10-12] MEDS: 0.9 % Sodium Chloride Flush 3 ML SYRINGE IVFLUSH ×3 (08:19→22:09)
[2023-10-12] MEDS: Docusate Sodium 100 MG CAPSULE PO ×2 (08:19→22:07)
[2023-10-12] MEDS: Brimonidine Tartrate 0.2% Oph 5 ML BOTTLE 2 DROP EYE-BOTH ×2 (08:22→22:13)
--- NOTE | 2023-10-12 08:41 | MHC.CM.PN ---
CM met with Patient at bedside and addressed IMM with him; original was given to Patient and a copy has been placed on the chart. Patient is a LTC Resident at [facility] and returning there is the dc plan. CM has initiated and will follow for dc planning. Patient's HCP is [facility] (on file) and the PCP is through the SNF. Patient receives HD Q M/W/F @ [facility] in [place].
--- NOTE | 2023-10-12 09:12 | ECG_ITS ---
Test Reason : inverted t wave Blood Pressure : / mmHG Vent. Rate : 073 BPM Atrial Rate : 073 BPM P-R Int : 176 ms QRS Dur : 082 ms QT Int : 508 ms P-R-T Axes : 046 -15 174 degrees QTc Int : 559 ms Normal sinus rhythm Minimal voltage criteria for LVH, may be normal variant ( Josephine product ) ST & Marked T wave abnormality, consider anterolateral ischemia Prolonged QT Abnormal ECG When compared with ECG of 11-OCT-2023 10:52, T wave inversion more evident in Anterolateral leads QT has lengthened Referred By: Anju Acosta Electronically Signed By:NAVNEET TOMLINSON
--- NOTE | 2023-10-12 11:14 | HO.PM.IMPN ---
Subjective Subjective Date of Service: 10/12/23 Interval History: esrd vs chf , abnormal ekg Review of Systems denies any chest pain sob improving no other c/o Physical Exam Vital Signs: Vital Signs: Last Vital Signs Temp 97.8 F 10/12/23 07:20 Pulse 73 10/12/23 10:11 Resp 18 10/12/23 10:11 BP 157/70 H 10/12/23 10:11 Pulse Ox 100 10/12/23 10:14 O2 Del Method Nasal Cannula 10/12/23 10:14 O2 Flow Rate 3 10/12/23 10:14 BMI result Body Mass Index 161.4 Objective Data Active Medications Acetaminophen (Acetaminophen 325 Mg Tablet) 650 mg PO Q6H PRN PRN Reason: Pain, Mild (Pain Scale 1-3) Last Admin: 10/11/23 22:27 Dose: 650 mg Documented By: SUDHA Albuterol Sulfate (Albuterol Sulfate 90 Mcg 8 Gm Inhaler) 2 puff INHALE Q4H PRN PRN Reason: sob Aspirin (Aspirin Enteric Coated 81 Mg Tablet.) 81 mg PO DAILY [facility] Last Admin: 10/12/23 08:19 Dose: Not Given Documented By: PRACHI Non-Admin Reason: Patient Refused Atorvastatin Calcium (Atorvastatin Calcium 40 Mg Tablet) 40 mg PO BEDTIME [facility] Last Admin: 10/11/23 22:27 Dose: 40 mg Documented By: SUDHA Benzonatate (Benzonatate 100 Mg Capsule) 100 mg PO TID PRN PRN Reason: Cough Bisacodyl (Bisacodyl 10 Mg Supp.Rect) 10 mg IA DAILY PRN PRN Reason: Constipation Brimonidine Tartrate (Brimonidine Tartrate 0.2% Oph 5 Ml Bottle) 2 drop EYE-BOTH BID [facility] Last Admin: 10/12/23 08:22 Dose: 2 drop Documented By: PRACHI Carvedilol (Carvedilol 25 Mg Tablet) 25 mg PO BID [facility]; Protocol Last Admin: 10/12/23 08:18 Dose: 25 mg Documented By: PRACHI Clonidine HCl (Clonidine Hcl 0.2 Mg Tablet) 0.2 mg PO TID@0900,1300,1700 [facility]; Protocol Last Admin: 10/12/23 08:18 Dose: 0.2 mg Documented By: PRACHI Docusate Sodium (Docusate Sodium 100 Mg Capsule) 100 mg PO DAILY PRN PRN Reason: Constipation Docusate Sodium (Docusate Sodium 100 Mg Capsule) 100 mg PO BID [facility] Last Admin: 10/12/23 08:19 Dose: 100 mg Documented By: PRACHI Hydralazine HCl (Hydralazine Hcl 10 Mg Tablet) 10 mg PO Q8H PRN; Protocol PRN Reason: BP > 200 Last Admin: 10/12/23 05:29 Dose: 10 mg Documented By: SUDHA Hydralazine HCl (Hydralazine Hcl 25 Mg Tablet) 25 mg PO TID [facility]; Protocol Last Admin: 10/12/23 08:18 Dose: 25 mg Documented By: PRACHI Isosorbide Mononitrate (Isosorbide Mononitrate 60 Mg Tab.Er.24h) 60 mg PO DAILY [facility]; Protocol Last Admin: 10/12/23 08:18 Dose: 60 mg Documented By: PRACHI Levothyroxine Sodium (Levothyroxine Sodium 200 Mcg Tablet) 200 mcg PO DAILY@0600 [facility] Last Admin: 10/12/23 05:30 Dose: 200 mcg Documented By: SUDHA Loperamide HCl (Loperamide Hcl 2 Mg Capsule) 2 mg PO Q4H PRN PRN Reason: LOOSE STOOLS Losartan Potassium (Losartan Potassium 50 Mg Tablet) 50 mg PO BID [facility]; Protocol Last Admin: 10/12/23 08:18 Dose: 50 mg Documented By: PRACHI Melatonin (Melatonin 3 Mg Tablet) 6 mg PO BEDTIME PRN PRN Reason: Insomnia Last Admin: 10/11/23 22:29 Dose: 6 mg Documented By: SUDHA Multivitamins/Vitamin C (Multivitamin Tablet) 1 tab PO DAILY [facility] Last Admin: 10/12/23 08:19 Dose: 1 tab Documented By: PRACHI Non-Formulary Medication (Cholecalciferol (Vitamin D3)) 1,250 mcg PO Q30D [facility] Omeprazole (Omeprazole 20 Mg Capsule.) 20 mg PO BID@0630,1630 [facility] Last Admin: 10/12/23 05:29 Dose: 20 mg Documented By: SUDHA Ondansetron HCl (Ondansetron Hcl 4 Mg/2 Ml Vial) 4 mg IVPUSH Q8H PRN PRN Reason: Nausea and Vomiting Pregabalin (Pregabalin 50 Mg Capsule) 50 mg PO BEDTIME [facility] Last Admin: 10/11/23 22:27 Dose: 50 mg Documented By: SUDHA Senna (Sennosides 8.6 Mg Tablet) 8.6 mg PO Q12H PRN PRN Reason: Constipation Sodium Chloride (0.9 % Sodium Chloride Flush 3 Ml Syringe) 3 ml IVFLUSH QSHIFT [facility] Last Admin: 10/12/23 08:19 Dose: 3 ml Documented By: PRACHI Sucralfate (Sucralfate 1 Gm Tablet) 1 gm PO BID@0900,1700 [facility] Last Admin: 10/12/23 08:19 Dose: 1 gm Documented By: PRACHI Labs 10/11/23 10:13 10/11/23 10:13 Assessment and Plan (1) Acute hypoxic respiratory failure: Status: Acute (2) Pulmonary edema: Status: Acute (3) Acute respiratory distress: Status: Acute Plan 68-year-old male with a PMH significant for?ESRD on HD Thu/Thu/Thu, HFrEF, HTN, CAD, hypothyroidsim, chronic hypoxic respiratory failure on 3L NC at home, anemia of chronic disease, and PAD s/p bilateral AKA who presents to the ED from [facility] for evaluation of SOB and acute hypertension of 231/75. Pt will be admitted to the hospital for treatment and further evaluation of acute on chronic hypoxic respiratory failure and hypertensive urgency in the setting of fluid overload secondary to recent transfusion. Hypertensive uncontrolled bp flactuating Patient received transfusion yesterday without dialysis, has hx of TACO Volume overload will be treated with dialysis Continue carvedilol, hydralazine Monitor BP closely Acute on chronic hypoxic respiratory in the setting of volume overload after blood transfusion(fluid overload in setting of esrd vs chf ?etiology unclear) Patient presented in moderate acute respiratory distress Was placed on BiPAP for 2-3 hours in the ED, then placed on non-rebreather, then weaned to OxyMask. Pt chronically on 3L home O2 Titrate supplemental O2>90, wean as tolerated abnormal ekg: also ?chf twave inversions in anteriolateral leads ,qtc proloned trop neg yesterday, patient denies any chest pain added back trops,echo bmp after hd avoid meds which can cause qt prolongation cardiology eval ESRD on HD Thu/Thu/ Last dialyzed on Thursday10/09/2023 Will be dialyzed upon admission Follow [facility] nephology eval. HFrEF Fluid overloaded likely secondary transfusion Volume overload will be corrected with dialysis Continue carvedilol Anemia of chronic disease Likey secondary to ESRD Continue Epogen Transfuse only with dialysis CAD/PAD Continue aspirin, statin Hypythyroidism Continue levothyroxine GERD PPI DVT Prophylaxis: Heparin ongoig hospilisation need: for treatment of?acute on chronic hypoxic respiratory failure and hypertensive urgency in the setting of fluid overload secondary to recent transfusion. Patient will be treated with emergent dialysis, supplemental oxygen as necessary, and close monitoring of labs and vitals.also abnormal ekg/chf -need further cardiac workup. Quality Stroke Does the patient have a stroke diagnosis?: No VTE Prior VTE?: No VTE Risk Level:: Medical - moderate - high VTE Device Contraindication: Treatment Not Indicated VTE Drug Contraindication: N/A - Med Ordered
[2023-10-12 11:39] LABS: Hemoglobin 9.7 g/dl (14.0-18.0); Mean Corpuscular HGB Conc 32.3 g/dl (31.0-36.0); Mean Corpuscular Hemoglobin 31.3 pg (27.0-33.0); Mean Corpuscular Volume 96.8 fL (80.0-98.0); Red Cell Distribution Width 19.2 % (11.0-16.0); White Blood Count 4.4 X10*3/uL (4.8-10.8)
[2023-10-12 11:40] LABS: Platelet Count 68 X10*3/uL (160-400)
[2023-10-12 11:48] LABS: Anion Gap 18 (12-20); Blood Urea Nitrogen 24 mg/dL (9-16); Carbon Dioxide 28 mmol/L (22-29); Chloride 98 mmol/L (96-108); Creatinine Clr Calc Pharmacy 0.6; Estimated Glomerular Filt Rate 9; Glucose Random 130 mg/dL (60-115); Potassium 4.1 mmol/L (3.3-5.1); Sodium 140 mmol/L (135-145)
[2023-10-12 11:49] LABS: B Type Natriuretic Peptide 2809 pg/mL (<100)
[2023-10-12 12:02] LABS: Troponin-I High Sensitivity 692.2 ng/L (<3.5-35.0)
--- NOTE | 2023-10-12 12:23 | PM.PNNEP ---
Subjective Subjective Date of Service: 10/12/23 Interval history: seen and examined denies SOB, CP, N, V, D Physical Exam Vital Signs: Vital Signs: Last Vital Signs Temp 97.8 F 10/12/23 11:34 Pulse 69 10/12/23 11:34 Resp 18 10/12/23 11:34 BP 110/58 L 10/12/23 11:34 Pulse Ox 100 10/12/23 11:34 O2 Del Method Nasal Cannula 10/12/23 11:34 O2 Flow Rate 3 10/12/23 11:34 BMI result Body Mass Index 161.4 Const: General: alert and awake HEENT: Head: Yes normocephalic and Yes atraumatic Neck: Neck: Yes supple Resp: Auscultation: diminished lung sounds Cardio: Heart sounds: S1 normal heart sound present and S2 normal heart sound present GI: Palpation (GI): Soft to palpation and nontender Psych: Appearance: grossly normal Objective Data Labs 10/12/23 11:11 10/12/23 11:11 Labs: Laboratory Results - last 24 hr 10/12/23 11:11 WBC 4.4 L RBC 3.10 L D Hgb 9.7 L D Hct 30.0 L D MCV 96.8 MCH 31.3 MCHC 32.3 RDW 19.2 H Plt Count 68 L D MPV Not Reportable Absolute Nucleated RBC 0.000 Nucleated RBC % (auto) 0.0 Sodium 140 Potassium 4.1 Chloride 98 Carbon Dioxide 28 Anion Gap 18 BUN 24 H Creatinine 6.27 H* Estim Creat Clear Calc 0.6 Estimated GFR 9 Random Glucose 130 H Calcium 9.0 Troponin I High Sens 692.2 H* D B-Natriuretic Peptide 2809 H Procedures Date of Service Date of Service: 10/12/23 Assessment & Plan Assessment and plan (1) ESRD (end stage renal disease): Status: Acute (2) Anemia: Status: Acute Plan usually has HD at [facility] presented with SOB nephrogenic anemia REC HD today UF as tolerated renal diet phosp[hate binders KYRA Time Spent With Patient Time: Total time managing care of this patient today ____ minutes. Progress Note: Quality Stroke Does the patient have a stroke diagnosis?: No
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
[2023-10-12] MEDS: Acetaminophen 325 MG TABLET 650 MG PO ×2 (14:30→22:05)
[2023-10-12] MEDS: Pregabalin 50 MG CAPSULE PO (22:07)
[2023-10-12] MEDS: Melatonin 3 MG TABLET 6 MG PO (22:07)
[2023-10-12] MEDS: Atorvastatin Calcium 40 MG TABLET PO (22:08)
[2023-10-13] VITALS: BP 182/80; PULSE 67; RESP 20; TEMP 36.1; O2SAT 100
[2023-10-13 03:44] VITALS: BP 155/66; PULSE 60; RESP 20; TEMP 36.2; O2SAT 100
--- NOTE | 2023-10-13 07:00 | CA_ITS ---
Transthoracic Echocardiogram Patient (Last, First, Middle): Clinton Small, Gender: Male Date of : 1955 Age: 68 Procedure Date: 10/13/2023 Procedure Type: Transthoracic Echocardiogram Location: [facility] [place] Height: 60.96 cm Weight: 59.88 kg BSA: 0.81 m2 Heart Rate: 58 bpm BP: 110 / 58 mmHg Supervisor Looping: SB, VH Referring MD: Jaime Quinonez MD Symptoms: abnnormal EKG, ASSESS WMA Study Quality: Fair/w Contrast ECG Rhythm: Bradycardia Conclusions: - The left ventricular systolic function is normal. The visually estimated ejection fraction is between 65-70%. There is no evidence of regional wall motion abnormalities. Findings Procedure Information Contrast agent, definity, is being given per protocol without apparent complications. Left Ventricle Normal left ventricular cavity size. There is severely increased left ventricular wall thickness. The left ventricular systolic function is normal. The visually estimated ejection fraction is between 65-70%. There is no evidence of regional wall motion abnormalities. Venous The inferior vena cava is normal in size and collapses greater than 50% with inspiration. Prior Study Comparison No significant change compared to prior study dated: 08/28/2023. Measurements 2D Linear Measurements IVSd: 1.52 0.6-0.9/0.6-1.0 cm LVIDd: 4.04 3.9-5.3/4.2-5.9 cm LVIDd Index: 4.99 2.4-3.2/2.2-3.1 cm/m2 LVIDs: 2.59 2.0-3.6 cm LVPWd: 1.31 0.7-1.1 cm LV Mass: 268.64 67-162/88-224 g LV Mass Index: 331.65 43-95/49-115 g/m2 LVOT Diam: 2.10 3.0+(-)1.3 cm 2D Systolic Function EF 4C: 71.80 >55% EF 2C: 71.40 >55% EF BiP: 72.30 >55% LVOT LVOT Diam: 2.10 LVOT Area: 3.46 Updated in Other Vendor System with Status of Final Jaime Quinonez MD electronically signed on 10/13/2023 2:16:23 PM with status of Final
[2023-10-13 07:26] VITALS: BP 175/79; PULSE 60; RESP 20; TEMP 36.2; O2SAT 100
[2023-10-13 07:40] LABS: Hematocrit 31.8 % (42.0-52.0); Hemoglobin 10.3 g/dl (14.0-18.0); Mean Corpuscular HGB Conc 32.4 g/dl (31.0-36.0); Mean Corpuscular Hemoglobin 31.2 pg (27.0-33.0); Mean Corpuscular Volume 96.4 fL (80.0-98.0); Platelet Count 66 X10*3/uL (160-400); Red Cell Distribution Width 18.3 % (11.0-16.0); White Blood Count 4.4 X10*3/uL (4.8-10.8)
[2023-10-13 07:53] LABS: Anion Gap 16 (12-20); Blood Urea Nitrogen 19 mg/dL (9-16); Calcium 9.2 mg/dL (8.4-10.2); Carbon Dioxide 24 mmol/L (22-29); Chloride 97 mmol/L (96-108); Creatinine Clr Calc Pharmacy 12.4; Estimated Glomerular Filt Rate 12; Glucose Random 99 mg/dL (60-115); Potassium 4.2 mmol/L (3.3-5.1); Sodium 133 mmol/L (135-145)
[2023-10-13] MEDS: Omeprazole 20 MG CAPSULE.DR PO ×2 (07:54→15:06)
[2023-10-13] MEDS: Levothyroxine Sodium 200 MCG TABLET PO (07:54)
[2023-10-13] MEDS: cloNIDine HCL 0.2 MG TABLET PO ×3 (08:34→17:00)
[2023-10-13] MEDS: Sucralfate 1 GM TABLET PO ×2 (08:34→17:00)
[2023-10-13] MEDS: carvediloL 25 MG TABLET PO ×2 (08:34→20:28)
[2023-10-13] MEDS: hydrALAZINE HCl 25 MG TABLET PO (08:34)
[2023-10-13] MEDS: Docusate Sodium 100 MG CAPSULE PO ×2 (08:34→20:28)
[2023-10-13] MEDS: Multivitamin TABLET 1 TAB PO (08:34)
[2023-10-13] MEDS: Losartan Potassium 50 MG TABLET PO ×2 (08:35→20:28)
[2023-10-13] MEDS: Brimonidine Tartrate 0.2% Oph 5 ML BOTTLE 2 DROP EYE-BOTH ×2 (08:35→20:32)
[2023-10-13] MEDS: Isosorbide Mononitrate 60 MG TAB.ER.24H PO (08:35)
[2023-10-13] MEDS: 0.9 % Sodium Chloride Flush 3 ML SYRINGE IVFLUSH ×2 (08:35→15:06)
[2023-10-13 08:38] LABS: Troponin-I High Sensitivity 257.5 ng/L (<3.5-35.0)
--- NOTE | 2023-10-13 10:23 | P.PNCA_ITS ---
Subjective Subjective Date of Service: 10/13/23 Interval history: He states that he feels fine. He does not have any chest pain or in fact any cardiac symptoms. Review of Systems Review of Systems Yes all other systems are reviewed and are negative Constitutional: Reports as per HPI and Reports no additional constitutional complaints Eyes: Reports as per HPI and Denies no additional eye complaints Denies system reviewed and no additional complaints, except as documented and Reports as per HPI Cardiovascular: Reports as per HPI, Reports no additional cardiovascular complaints, Denies acrocyanosis, Denies cool extremities, Denies chest pain, Denies leg edema, Denies lightheadedness, Denies palpitations and Reports dyspnea Respiratory: Reports as per HPI, Denies no additional respiratory complaints and Reports dyspnea Gastrointestinal: Reports as per HPI and Denies no additional gastrointestinal complaints Genitourinary: Reports no additional male genitourinary complaints and Reports as per HPI Musculoskeletal: Reports no additional musculoskeletal complaints and Reports as per HPI Skin/Breast: Reports system reviewed and no additional complaints, except as docu Reports system reviewed and no additional complaints, except as documented and Reports as per HPI Psychiatric: Reports no additional psychiatric complaints and Reports as per HPI Endocrine: Reports no additional endocrine complaints, Reports as per HPI and Denies palpitations Hematologic/Lymphatic: Reports no additional hematologic/lymphatic complaints and Reports as per HPI Allergic/Immunologic: Reports no additional allergic/immunologic complaints and Reports as per HPI Physical Exam Vital Signs: Last Vital Signs Temp 97.2 F 10/13/23 07:26 Pulse 60 10/13/23 07:26 Resp 20 10/13/23 07:26 BP 175/79 H 10/13/23 07:26 Pulse Ox 100 10/13/23 07:26 O2 Del Method Nasal Cannula 10/13/23 07:26 O2 Flow Rate 3 10/13/23 07:26 BMI result Body Mass Index 161.4 Const General: comfortable and no acute distress Orientation/consciousness: patient oriented x3 HEENT Other: Unremarkable Head: Yes normal to inspection Neck Neck: Yes normal visual inspection Chest Chest palpation & inspection: normal inspection of the chest Resp Auscultation: crackles Cardio Palpation: normal PMI Heart sounds: S1 normal heart sound present, S2 normal heart sound present, no gallops, no murmurs and no rubs GI Palpation (GI): Soft to palpation Back/Spine/Pelvis Other: unremarkable Skin General skin exam: no rashes or lesions noted Neuro General: patient oriented x3 Extrem Other: Bilateral AKA. Psych Mental Status: mental status grossly normal Objective Labs and Meds 10/13/23 06:40 10/13/23 06:40 Lab results: Laboratory Results - last 24 hr 10/12/23 10/13/23 11:11 06:40 WBC 4.4 L 4.4 L RBC 3.10 L D 3.30 L Hgb 9.7 L D 10.3 L Hct 30.0 L D 31.8 L MCV 96.8 96.4 MCH 31.3 31.2 MCHC 32.3 32.4 RDW 19.2 H 18.3 H Plt Count 68 L D 66 L MPV Not Reportable Not Reportable Absolute Nucleated RBC 0.000 0.000 Nucleated RBC % (auto) 0.0 0.0 Sodium 140 133 L Potassium 4.1 4.2 Chloride 98 97 Carbon Dioxide 28 24 Anion Gap 18 16 BUN 24 H 19 H Creatinine 6.27 H* 4.82 H* Estim Creat Clear Calc 0.6 12.4 Estimated GFR 9 12 Random Glucose 130 H 99 Calcium 9.0 9.2 Troponin I High Sens 692.2 H* D 257.5 H* D B-Natriuretic Peptide 2809 H Progress Note: A&P Assessment and plan (1) Hypertensive emergency: Status: Resolved (2) End stage chronic kidney disease: Status: Inactive (3) Atherosclerotic cardiovascular disease: Status: Acute (4) NSTEMI (non-ST elevated myocardial infarction): Status: Acute Plan Blood pressure trends reviewed. Initially, it was as much as 229/130 mm Hg. It still seems quite high. Troponin levels are 33.6 and 692. Echocardiogram from last month with LVEF of 60-65%; moderate LVH; mild aortic stenosis and moderate mitral annular calcification. Myocardial perfusion imaging study from last month shows possible mild ischemia in the basal inferolateral wall but otherwise normal perfusion. Cardiac catheterization 2021-moderate diffuse [place] CAD. Vasquez to LAD patent. SVG to RPDA patent. SVG to ramus, OM1 patent. Overall, could be a type 2 event in the setting of uncontrolled blood pressures as well as variable readings as there are some readings as low in the 110s. That could lead to changes in coronary blood flow leading to EKG changes as well as elevated troponins. Clinically, he is got absolutely no chest pain at this time. Additionally, he repeatedly states that he will not take any blood thinners as he apparently bleeds a lot and frequently gets blood transfusions. Hence managed conservatively. Mainly blood pressure management as advised through Nephrology as he is also on dialysis. Discussed with Dr. Wang. Time Spent With Patient Time: Total time managing care of this patient today ____ minutes. Progress Note: Quality Stroke Does the patient have a stroke diagnosis?: No Procedures Date of Service Date of Service: 10/13/23
--- NOTE | 2023-10-13 10:23 | ECG_ITS ---
Test Reason : abn ekg Blood Pressure : / mmHG Vent. Rate : 064 BPM Atrial Rate : 064 BPM P-R Int : 186 ms QRS Dur : 088 ms QT Int : 544 ms P-R-T Axes : 041 -19 174 degrees QTc Int : 561 ms Normal sinus rhythm Minimal voltage criteria for LVH, may be normal variant ( [place] product ) ST & Marked T wave abnormality, consider anterolateral ischemia Prolonged QT Abnormal ECG When compared with ECG of 12-OCT-2023 09:10, No significant change was found Referred By: Navneet Tomlinson Electronically Signed By:NAVNEET TOMLINSON
--- NOTE | 2023-10-13 11:06 | PM.PNNEP ---
Subjective Subjective Date of Service: 10/13/23 Interval history: seen and examined had HD yesterday d/w earlier with medical attending Physical Exam Vital Signs: Vital Signs: Last Vital Signs Temp 97.2 F 10/13/23 07:26 Pulse 60 10/13/23 07:26 Resp 20 10/13/23 07:26 BP 175/79 H 10/13/23 07:26 Pulse Ox 100 10/13/23 07:26 O2 Del Method Nasal Cannula 10/13/23 07:26 O2 Flow Rate 3 10/13/23 07:26 BMI result Body Mass Index 161.4 Const: General: alert and awake HEENT: Head: Yes normocephalic and Yes atraumatic Neck: Neck: Yes supple Resp: Auscultation: diminished lung sounds Cardio: Heart sounds: S1 normal heart sound present and S2 normal heart sound present GI: Palpation (GI): Soft to palpation and nontender Psych: Appearance: grossly normal Objective Data Labs 10/13/23 06:40 10/13/23 06:40 Labs: Laboratory Results - last 24 hr 10/12/23 10/13/23 11:11 06:40 WBC 4.4 L 4.4 L RBC 3.10 L D 3.30 L Hgb 9.7 L D 10.3 L Hct 30.0 L D 31.8 L MCV 96.8 96.4 MCH 31.3 31.2 MCHC 32.3 32.4 RDW 19.2 H 18.3 H Plt Count 68 L D 66 L MPV Not Reportable Not Reportable Absolute Nucleated RBC 0.000 0.000 Nucleated RBC % (auto) 0.0 0.0 Sodium 140 133 L Potassium 4.1 4.2 Chloride 98 97 Carbon Dioxide 28 24 Anion Gap 18 16 BUN 24 H 19 H Creatinine 6.27 H* 4.82 H* Estim Creat Clear Calc 0.6 12.4 Estimated GFR 9 12 Random Glucose 130 H 99 Calcium 9.0 9.2 Troponin I High Sens 692.2 H* D 257.5 H* D B-Natriuretic Peptide 2809 H Procedures Date of Service Date of Service: 10/13/23 Assessment & Plan Assessment and plan (1) ESRD (end stage renal disease): Status: Acute (2) Anemia: Status: Acute Plan usually has HD at [facility] presented with SOB underlying CAD nephrogenic anemia REC HD tomorrow renal diet phosp[hate binders no need for KYRA can add amlodipine 2.5 mg for high BP Time Spent With Patient Time: Total time managing care of this patient today ____ minutes. Progress Note: Quality Stroke Does the patient have a stroke diagnosis?: No
[2023-10-13 11:22] VITALS: BP 184/81; PULSE 65; RESP 20; TEMP 36.3; O2SAT 99
--- NOTE | 2023-10-13 11:38 | HO.PM.IMPN ---
Subjective Subjective Date of Service: 10/13/23 Interval History: f/u on uncontrolled HTN and NSTEMI, fluid overload overall feeling better, no sob, no chest pain, refused asa or heparin Physical Exam Vital Signs: Vital Signs: Last Vital Signs Temp 97.4 F 10/13/23 11:22 Pulse 65 10/13/23 11:22 Resp 20 10/13/23 11:22 BP 184/81 H 10/13/23 11:22 Pulse Ox 99 10/13/23 11:22 O2 Del Method Nasal Cannula 10/13/23 11:22 O2 Flow Rate 3 10/13/23 11:22 BMI result Body Mass Index 161.4 Const: Other: General: AO X 3, no acute distress Resp: CTA bilateral CVS: S1,S2,RRR GI: +BS, NT, no distention Skin: No rash ext: bilateral AKA Neuro: motor grossly intact Psych: appropriate affect Objective Data Active Medications Acetaminophen (Acetaminophen 325 Mg Tablet) 650 mg PO Q6H PRN PRN Reason: Pain, Mild (Pain Scale 1-3) Last Admin: 10/12/23 22:05 Dose: 650 mg Documented By: SUDHA Albuterol Sulfate (Albuterol Sulfate 90 Mcg 8 Gm Inhaler) 2 puff INHALE Q4H PRN PRN Reason: sob Aspirin (Aspirin Enteric Coated 81 Mg Tablet.Dr) 81 mg PO DAILY [facility] Last Admin: 10/13/23 08:30 Dose: Not Given Documented By: PRACHI Non-Admin Reason: Patient Refused Atorvastatin Calcium (Atorvastatin Calcium 40 Mg Tablet) 40 mg PO BEDTIME [facility] Last Admin: 10/12/23 22:08 Dose: 40 mg Documented By: SUDHA Benzonatate (Benzonatate 100 Mg Capsule) 100 mg PO TID PRN PRN Reason: Cough Bisacodyl (Bisacodyl 10 Mg Supp.Rect) 10 mg [place] DAILY PRN PRN Reason: Constipation Brimonidine Tartrate (Brimonidine Tartrate 0.2% Oph 5 Ml Bottle) 2 drop EYE-BOTH BID [facility] Last Admin: 10/13/23 08:35 Dose: 2 drop Documented By: PRACHI Carvedilol (Carvedilol 25 Mg Tablet) 25 mg PO BID [facility]; Protocol Last Admin: 10/13/23 08:34 Dose: 25 mg Documented By: PRACHI Clonidine HCl (Clonidine Hcl 0.2 Mg Tablet) 0.2 mg PO TID@0900,1300,1700 [facility]; Protocol Last Admin: 10/13/23 08:34 Dose: 0.2 mg Documented By: PRACHI Docusate Sodium (Docusate Sodium 100 Mg Capsule) 100 mg PO DAILY PRN PRN Reason: Constipation Docusate Sodium (Docusate Sodium 100 Mg Capsule) 100 mg PO BID [facility] Last Admin: 10/13/23 08:34 Dose: 100 mg Documented By: PRACHI Hydralazine HCl (Hydralazine Hcl 25 Mg Tablet) 25 mg PO TID [facility]; Protocol Last Admin: 10/13/23 08:34 Dose: 25 mg Documented By: PRACHI Isosorbide Mononitrate (Isosorbide Mononitrate 60 Mg Tab.Er.24h) 60 mg PO DAILY [facility]; Protocol Last Admin: 10/13/23 08:35 Dose: 60 mg Documented By: PRACHI Levothyroxine Sodium (Levothyroxine Sodium 200 Mcg Tablet) 200 mcg PO DAILY@0600 [facility] Last Admin: 10/13/23 07:54 Dose: 200 mcg Documented By: SUDHA Loperamide HCl (Loperamide Hcl 2 Mg Capsule) 2 mg PO Q4H PRN PRN Reason: LOOSE STOOLS Losartan Potassium (Losartan Potassium 50 Mg Tablet) 50 mg PO BID [facility]; Protocol Last Admin: 10/13/23 08:35 Dose: 50 mg Documented By: PRACHI Melatonin (Melatonin 3 Mg Tablet) 6 mg PO BEDTIME PRN PRN Reason: Insomnia Last Admin: 10/12/23 22:07 Dose: 6 mg Documented By: SUDHA Multivitamins/Vitamin C (Multivitamin Tablet) 1 tab PO DAILY [facility] Last Admin: 10/13/23 08:34 Dose: 1 tab Documented By: PRACHI Omeprazole (Omeprazole 20 Mg Capsule.) 20 mg PO BID@0630,1630 [facility] Last Admin: 10/13/23 07:54 Dose: 20 mg Documented By: SUDHA Ondansetron HCl (Ondansetron Hcl 4 Mg/2 Ml Vial) 4 mg IVPUSH Q8H PRN PRN Reason: Nausea and Vomiting Pregabalin (Pregabalin 50 Mg Capsule) 50 mg PO BEDTIME [facility] Last Admin: 10/12/23 22:07 Dose: 50 mg Documented By: SUDHA Senna (Sennosides 8.6 Mg Tablet) 8.6 mg PO Q12H PRN PRN Reason: Constipation Sodium Chloride (0.9 % Sodium Chloride Flush 3 Ml Syringe) 3 ml IVFLUSH QSHIFT [facility] Last Admin: 10/13/23 08:35 Dose: 3 ml Documented By: PRACHI Sucralfate (Sucralfate 1 Gm Tablet) 1 gm PO BID@0900,1700 [facility] Last Admin: 10/13/23 08:34 Dose: 1 gm Documented By: PRACHI Labs 10/13/23 06:40 10/13/23 06:40 Labs: Laboratory Results - last 24 hr 10/12/23 10/13/23 11:11 06:40 MCV 96.8 96.4 MCH 31.3 31.2 MCHC 32.3 32.4 RDW 19.2 H 18.3 H Plt Count 68 L D 66 L MPV Not Reportable Not Reportable Absolute Nucleated RBC 0.000 0.000 Nucleated RBC % (auto) 0.0 0.0 Anion Gap 18 16 Estim Creat Clear Calc 0.6 12.4 Estimated GFR 9 12 Random Glucose 130 H 99 Calcium 9.0 9.2 B-Natriuretic Peptide 2809 H Assessment and Plan (1) Acute hypoxic respiratory failure: Status: Acute (2) Pulmonary edema: Status: Acute (3) Acute respiratory distress: Status: Acute Plan 68-year-old male with a PMH significant for?ESRD on HD Thu/Thu/Thu, HFrEF, HTN, CAD, hypothyroidsim, chronic hypoxic respiratory failure on 3L NC at home, anemia of chronic disease, and PAD s/p bilateral AKA who presents to the ED from [facility] for evaluation of SOB and acute hypertension of 231/75. Pt will be admitted to the hospital for treatment and further evaluation of acute on chronic hypoxic respiratory failure and hypertensive urgency in the setting of fluid overload secondary to recent transfusion. NSTEMI twave inversions in anteriolateral leads ,qtc proloned with peak tropoonin I of 692, now 257, no chest pain. He categorically refused heparin or ASA citing bleeding easily and frequent requiring transfusion, need of the management was coveyed by Dr. Acosta, myself and Dr. Quinonez and he still refuses and therefore will management coservatively Hypertensive difficulty to controlled, BP still high -continue Corege 25 bid, Clonidine 0.2 mg tid, Hydralazine 25 tid, imdur 60 md/d, Losartan 50 bid. -increase Hydalazine to 50 tid and further adjustment by Nephrology Acute on chronic hypoxic respiratory in the setting of volume overload after blood transfusion(fluid overload in setting of esrd vs chf ?etiology unclear) and required BiPAP and is back on home O2 at 3 liters fololowing HD ESRD on HD Thu/Thu/Thud HFrEF--with exacerbation due to fluid overload, resolved after dialysis Anemia of chronic disease Likey secondary to ESRD Continue Epogen Transfuse only with dialysis CAD/PAD Continue aspirin, statin Hypythyroidism Continue levothyroxine GERD PPI DVT Prophylaxis: Heparin need for hospitalization: BP adjustment in setting of acute HARRY Quality Stroke Does the patient have a stroke diagnosis?: No VTE Prior VTE?: No VTE Risk Level:: Medical - moderate - high VTE Device Contraindication: Treatment Not Indicated VTE Drug Contraindication: N/A - Med Ordered
[2023-10-13] MEDS: hydrALAZINE HCl 50 MG TABLET PO ×2 (15:06→20:28)
[2023-10-13] MEDS: Acetaminophen 325 MG TABLET 650 MG PO (15:07)
[2023-10-13 15:10] VITALS: BP 146/57; PULSE 64; RESP 16; TEMP 36.7; O2SAT 100
[2023-10-13 19:59] VITALS: BP 129/59; PULSE 70; RESP 20; TEMP 36.2; O2SAT 100
[2023-10-13] MEDS: Atorvastatin Calcium 40 MG TABLET PO (20:28)
[2023-10-13] MEDS: Pregabalin 50 MG CAPSULE PO (20:28)
[2023-10-13] MEDS: Melatonin 3 MG TABLET 6 MG PO (20:28)
[2023-10-14] VITALS: BP 147/65; PULSE 64; RESP 20
--- NOTE | 2023-10-14 | ECG_ITS ---
Test Reason : cp Blood Pressure : / mmHG Vent. Rate : 057 BPM Atrial Rate : 057 BPM P-R Int : 198 ms QRS Dur : 088 ms QT Int : 576 ms P-R-T Axes : 035 -35 192 degrees QTc Int : 560 ms Sinus bradycardia Left axis deviation ST & Marked T wave abnormality, consider inferior ischemia ST & Marked T wave abnormality, consider anterolateral ischemia Prolonged QT Abnormal ECG When compared with ECG of 13-OCT-2023 10:33, No significant change was found Referred By: Shawn Wang Electronically Signed By:NAVNEET TOMLINSON
[2023-10-14 03:52] VITALS: BP 150/60; PULSE 57; RESP 16; TEMP 36.1; O2SAT 100
[2023-10-14] MEDS: Omeprazole 20 MG CAPSULE.DR PO (05:57)
[2023-10-14] MEDS: Levothyroxine Sodium 200 MCG TABLET PO (05:58)
[2023-10-14] MEDS: 0.9 % Sodium Chloride Flush 3 ML SYRINGE IVFLUSH ×2 (05:58→08:27)
[2023-10-14 07:23] LABS: Anion Gap 17 (12-20); Blood Urea Nitrogen 33 mg/dL (9-16); Calcium 8.7 mg/dL (8.4-10.2); Carbon Dioxide 25 mmol/L (22-29); Chloride 98 mmol/L (96-108); Creatinine Clr Calc Pharmacy 8.6; Estimated Glomerular Filt Rate 8; Glucose Random 96 mg/dL (60-115); Potassium 4.5 mmol/L (3.3-5.1); Sodium 135 mmol/L (135-145)
[2023-10-14 08:00] VITALS: BP 161/68; PULSE 61; RESP 18; TEMP 36.1; O2SAT 100
[2023-10-14] MEDS: Brimonidine Tartrate 0.2% Oph 5 ML BOTTLE 2 DROP EYE-BOTH (08:27)
[2023-10-14] MEDS: Isosorbide Mononitrate 60 MG TAB.ER.24H PO (08:27)
[2023-10-14] MEDS: Multivitamin TABLET 1 TAB PO (08:28)
[2023-10-14] MEDS: Losartan Potassium 50 MG TABLET PO (08:28)
[2023-10-14] MEDS: cloNIDine HCL 0.2 MG TABLET PO (08:28)
[2023-10-14] MEDS: Sucralfate 1 GM TABLET PO (08:28)
[2023-10-14] MEDS: carvediloL 25 MG TABLET PO (08:28)
[2023-10-14] MEDS: hydrALAZINE HCl 50 MG TABLET PO (08:28)
[2023-10-14] MEDS: Docusate Sodium 100 MG CAPSULE PO (08:53)
--- NOTE | 2023-10-14 09:48 | PM.PNCARD ---
Subjective Subjective Date of Service: 10/14/23 Interval history: He states he is still feeling okay. No further chest pains. However, EKGs still looks quite abnormal. Review of Systems Review of Systems Yes all other systems are reviewed and are negative Constitutional: Reports as per HPI and Reports no additional constitutional complaints Eyes: Reports as per HPI and Denies no additional eye complaints Denies system reviewed and no additional complaints, except as documented and Reports as per HPI Cardiovascular: Reports as per HPI, Reports no additional cardiovascular complaints, Denies acrocyanosis, Denies cool extremities, Denies chest pain, Denies leg edema, Denies lightheadedness, Denies palpitations and Denies dyspnea Respiratory: Reports as per HPI, Denies no additional respiratory complaints and Denies dyspnea Gastrointestinal: Reports as per HPI and Denies no additional gastrointestinal complaints Genitourinary: Reports no additional male genitourinary complaints and Reports as per HPI Musculoskeletal: Reports no additional musculoskeletal complaints and Reports as per HPI Skin/Breast: Reports system reviewed and no additional complaints, except as docu Reports system reviewed and no additional complaints, except as documented and Reports as per HPI Psychiatric: Reports no additional psychiatric complaints and Reports as per HPI Endocrine: Reports no additional endocrine complaints, Reports as per HPI and Denies palpitations Hematologic/Lymphatic: Reports no additional hematologic/lymphatic complaints and Reports as per HPI Allergic/Immunologic: Reports no additional allergic/immunologic complaints and Reports as per HPI Physical Exam Vital Signs: Last Vital Signs Temp 96.9 F 10/14/23 08:00 Pulse 61 10/14/23 08:00 Resp 18 10/14/23 08:00 BP 161/68 H 10/14/23 08:00 Pulse Ox 100 10/14/23 08:00 O2 Del Method Nasal Cannula 10/14/23 08:00 O2 Flow Rate 3 10/14/23 08:00 BMI result Body Mass Index 161.4 Const General: comfortable and no acute distress Orientation/consciousness: patient oriented x3 HEENT Other: Unremarkable Head: Yes normal to inspection Neck Neck: Yes normal visual inspection Chest Chest palpation & inspection: normal inspection of the chest Resp Auscultation: crackles Cardio Palpation: normal PMI Heart sounds: S1 normal heart sound present, S2 normal heart sound present, no gallops, no murmurs and no rubs GI Palpation (GI): Soft to palpation Back/Spine/Pelvis Other: unremarkable Skin General skin exam: no rashes or lesions noted Neuro General: patient oriented x3 Extrem Other: Bilateral AKA. Psych Mental Status: mental status grossly normal Objective Labs and Meds 10/13/23 06:40 10/14/23 06:34 Lab results: Laboratory Results - last 24 hr 10/14/23 06:34 Hold Purple Top SEE NOTE Sodium 135 Potassium 4.5 Chloride 98 Carbon Dioxide 25 Anion Gap 17 BUN 33 H Creatinine 6.90 H* Estim Creat Clear Calc 8.6 Estimated GFR 8 Random Glucose 96 Calcium 8.7 Progress Note: A&P Assessment and plan (1) Hypertensive emergency: Status: Resolved (2) End stage chronic kidney disease: Status: Inactive (3) Atherosclerotic cardiovascular disease: Status: Acute (4) NSTEMI (non-ST elevated myocardial infarction): Status: Acute Plan EKG findings and clinical story [place] [facility] Overall difficult situation as he has also hx of GI blood loss from ?angiodysplasias. So far, he has been refusing anticoagulation. Hence discussed with interventional cardiology especially considering the significant EKG changes. To consider atleast diagnostic cath and then based on nature of disease and lesions that need to be treated, may have to involve GI as well. [facility] transfer for futher care. Discussed with . Time Spent With Patient Time: Total time managing care of this patient today ____ minutes. Progress Note: Quality Stroke Does the patient have a stroke diagnosis?: No Procedures Date of Service Date of Service: 10/14/23
--- NOTE | 2023-10-14 10:42 | HO.PM.IMPN ---
Subjective Subjective Date of Service: 10/14/23 Interval History: Had chest pain during dialysis, and SBP dropped into 70s Dialysis stopped, SBP now in 90s Physical Exam Vital Signs: Vital Signs: Last Vital Signs Temp 96.9 F 10/14/23 08:00 Pulse 61 10/14/23 08:00 Resp 18 10/14/23 08:00 BP 161/68 H 10/14/23 08:00 Pulse Ox 100 10/14/23 08:00 O2 Del Method Nasal Cannula 10/14/23 08:00 O2 Flow Rate 3 10/14/23 08:00 BMI result Body Mass Index 161.4 Const: Other: General: AO X 3, no acute distress Resp: CTA bilateral CVS: S1,S2,RRR GI: +BS, NT, no distention Skin: No rash ext: bilateral AKA Neuro: motor grossly intact Psych: appropriate affect Objective Data Active Medications Acetaminophen (Acetaminophen 325 Mg Tablet) 650 mg PO Q6H PRN PRN Reason: Pain, Mild (Pain Scale 1-3) Last Admin: 10/13/23 15:07 Dose: 650 mg Documented By: JUSTINO Albuterol Sulfate (Albuterol Sulfate 90 Mcg 8 Gm Inhaler) 2 puff INHALE Q4H PRN PRN Reason: sob Aspirin (Aspirin Enteric Coated 81 Mg Tablet.Dr) 81 mg PO DAILY [facility] Last Admin: 10/14/23 08:27 Dose: Not Given Documented By: NATHALIE Non-Admin Reason: Patient Refused Atorvastatin Calcium (Atorvastatin Calcium 40 Mg Tablet) 40 mg PO BEDTIME [facility] Last Admin: 10/13/23 20:28 Dose: 40 mg Documented By: DIAZDEM Benzonatate (Benzonatate 100 Mg Capsule) 100 mg PO TID PRN PRN Reason: Cough Bisacodyl (Bisacodyl 10 Mg Supp.Rect) 10 mg [place] DAILY PRN PRN Reason: Constipation Brimonidine Tartrate (Brimonidine Tartrate 0.2% Oph 5 Ml Bottle) 2 drop EYE-BOTH BID [facility] Last Admin: 10/14/23 08:27 Dose: 2 drop Documented By: NATHALIE Carvedilol (Carvedilol 25 Mg Tablet) 25 mg PO BID [facility]; Protocol Last Admin: 10/14/23 08:28 Dose: 25 mg Documented By: NATHALIE Clonidine HCl (Clonidine Hcl 0.2 Mg Tablet) 0.2 mg PO TID@0900,1300,1700 [facility]; Protocol Last Admin: 10/14/23 08:28 Dose: 0.2 mg Documented By: NATHALIE Docusate Sodium (Docusate Sodium 100 Mg Capsule) 100 mg PO DAILY PRN PRN Reason: Constipation Docusate Sodium (Docusate Sodium 100 Mg Capsule) 100 mg PO BID [facility] Last Admin: 10/14/23 08:53 Dose: 100 mg Documented By: NATHALIE Hydralazine HCl (Hydralazine Hcl 50 Mg Tablet) 50 mg PO TID [facility]; Protocol Last Admin: 10/14/23 08:28 Dose: 50 mg Documented By: NATHALIE Isosorbide Mononitrate (Isosorbide Mononitrate 60 Mg Tab.Er.24h) 60 mg PO DAILY [facility]; Protocol Last Admin: 10/14/23 08:27 Dose: 60 mg Documented By: NATHALIE Levothyroxine Sodium (Levothyroxine Sodium 200 Mcg Tablet) 200 mcg PO DAILY@0600 [facility] Last Admin: 10/14/23 05:58 Dose: 200 mcg Documented By: MINGO Loperamide HCl (Loperamide Hcl 2 Mg Capsule) 2 mg PO Q4H PRN PRN Reason: LOOSE STOOLS Losartan Potassium (Losartan Potassium 50 Mg Tablet) 50 mg PO BID [facility]; Protocol Last Admin: 10/14/23 08:28 Dose: 50 mg Documented By: NATHALIE Melatonin (Melatonin 3 Mg Tablet) 6 mg PO BEDTIME PRN PRN Reason: Insomnia Last Admin: 10/13/23 20:28 Dose: 6 mg Documented By: INÉS Multivitamins/Vitamin C (Multivitamin Tablet) 1 tab PO DAILY [facility] Last Admin: 10/14/23 08:28 Dose: 1 tab Documented By: NATHALIE Omeprazole (Omeprazole 20 Mg Capsule.) 20 mg PO BID@0630,1630 [facility] Last Admin: 10/14/23 05:57 Dose: 20 mg Documented By: MINGO Ondansetron HCl (Ondansetron Hcl 4 Mg/2 Ml Vial) 4 mg IVPUSH Q8H PRN PRN Reason: Nausea and Vomiting Pregabalin (Pregabalin 50 Mg Capsule) 50 mg PO BEDTIME [facility] Last Admin: 10/13/23 20:28 Dose: 50 mg Documented By: INÉS Senna (Sennosides 8.6 Mg Tablet) 8.6 mg PO Q12H PRN PRN Reason: Constipation Sodium Chloride (0.9 % Sodium Chloride Flush 3 Ml Syringe) 3 ml IVFLUSH QSHIFT [facility] Last Admin: 10/14/23 08:27 Dose: 3 ml Documented By: NATHALIE Sucralfate (Sucralfate 1 Gm Tablet) 1 gm PO BID@0900,1700 [facility] Last Admin: 10/14/23 08:28 Dose: 1 gm Documented By: NATHALIE Labs 10/13/23 06:40 10/14/23 06:34 Labs: Laboratory Results - last 24 hr 10/14/23 06:34 Hold Purple Top SEE NOTE Anion Gap 17 Estim Creat Clear Calc 8.6 Estimated GFR 8 Random Glucose 96 Calcium 8.7 Assessment and Plan (1) Acute hypoxic respiratory failure: Status: Acute (2) Pulmonary edema: Status: Acute (3) Acute respiratory distress: Status: Acute Plan 68-year-old male with a PMH significant for?ESRD on HD Mon/Wed/Fri, HFrEF, HTN, CAD, hypothyroidsim, chronic hypoxic respiratory failure on 3L NC at home, anemia of chronic disease, and PAD s/p bilateral AKA who presents to the ED from [facility] for evaluation of SOB and acute hypertension of 231/75. Pt will be admitted to the hospital for treatment and further evaluation of acute on chronic hypoxic respiratory failure and hypertensive urgency in the setting of fluid overload secondary to recent transfusion. NSTEMI twave inversions in anteriolateral leads ,qtc proloned with peak tropoonin I of 692, now 257, no chest pain. He categorically refused heparin or ASA citing bleeding easily and frequent requiring transfusion, need of the management was coveyed by Dr. Acosta, myself and Dr. Quinonez and he still refuses and therefore will management conservatively--He had chest pain during dialysis this morning, with SBP dropping into 70 now up to 90s, gettting repeat ECG and repeat troponin Hypertensive difficulty to controlled, BP still high--overall better -continue Corege 25 bid, Clonidine 0.2 mg tid, Hydralazine 25 tid, imdur 60 md/d, Losartan 50 bid. -increase Hydalazine to 50 tid and further adjustment by Nephrology Acute on chronic hypoxic respiratory failre in the setting of volume overload after blood transfusion(fluid overload in setting of esrd vs chf ?etiology unclear) and required BiPAP and is back on home O2 at 3 liters fololowing HD ESRD on HD Thu/Thu/Thud HFrEF--with exacerbation due to fluid overload, resolved after dialysis Anemia of chronic disease Likey secondary to ESRD Continue Epogen Transfuse only with dialysis CAD/PAD Continue aspirin, statin Hypythyroidism Continue levothyroxine GERD PPI DVT Prophylaxis: Heparin need for hospitalization: BP adjustment in setting of acute HARRY Quality Stroke Does the patient have a stroke diagnosis?: No VTE Prior VTE?: No VTE Risk Level:: Medical - moderate - high VTE Device Contraindication: Treatment Not Indicated VTE Drug Contraindication: N/A - Med Ordered
[2023-10-14 11:26] VITALS: BP 100/41; PULSE 57; RESP 20; TEMP 36.1; O2SAT 100
--- NOTE | 2023-10-14 11:33 | P.PNNP_ITS ---
Subjective Subjective Date of Service: 10/14/23 Interval history: seen and examined HD aborted after 38 minutes due to chest pain Physical Exam 2 Vital Signs: Vital Signs: Last Vital Signs Temp 97.0 F 10/14/23 11:26 Pulse 57 10/14/23 11:26 Resp 20 10/14/23 11:26 BP 100/41 L 10/14/23 11:26 Pulse Ox 100 10/14/23 11:26 O2 Del Method Nasal Cannula 10/14/23 11:26 O2 Flow Rate 3 10/14/23 11:26 BMI result Body Mass Index 161.4 Const: General: alert and awake HEENT: Head: Yes normocephalic and Yes atraumatic Neck: Neck: Yes supple Resp: Auscultation: diminished lung sounds Cardio: Heart sounds: S1 normal heart sound present and S2 normal heart sound present GI: Palpation (GI): Soft to palpation and nontender Psych: Appearance: grossly normal Objective Data Labs 10/13/23 06:40 10/14/23 06:34 Labs: Laboratory Results - last 24 hr 10/14/23 06:34 Hold Purple Top SEE NOTE Sodium 135 Potassium 4.5 Chloride 98 Carbon Dioxide 25 Anion Gap 17 BUN 33 H Creatinine 6.90 H* Estim Creat Clear Calc 8.6 Estimated GFR 8 Random Glucose 96 Calcium 8.7 Procedures Date of Service Date of Service: 10/14/23 Assessment & Plan Assessment and plan (1) ESRD (end stage renal disease): Status: Acute (2) Anemia: Status: Acute Plan usually has HD at [facility] presented with SOB underlying CAD now with NSTEMI EKG findings and clinical story reviewed with and [place] [facility] [place] anticoagulation diagnostic catheterization planned at [facility] [place] nephrogenic anemia REC HD today renal diet phosp[hate binders no need for KYRA transfer to [facility] [place] Time Spent With Patient Time: Total time managing care of this patient today ____ minutes. Progress Note: Quality Stroke Does the patient have a stroke diagnosis?: No
--- NOTE | 2023-10-14 11:54 | P.DS_ITS ---
DS: Providers Provider Date of Service: 10/14/23 Date of admission: 10/11/23 13:10 Primary care physician: Unknown Physician Consults: 10/11/23 11:49 Consult to Nephrology Routine Consulting Provider: Brendan Saini Reason for consultation: Renal failure need for dialysis Has provider been notified: Yes 10/12/23 10:26 Consult to Cardiology Routine Consulting Provider: [facility] Reason for consultation: esrd,possible has underlying chf ,also twave inversion in anteriolat leads Has provider been notified: No DS: Diagnosis Discharge Diagnosis (1) ESRD (end stage renal disease): Status: Acute (2) Anemia: Status: Acute DS: Summary Hospital Course Hospital Course: Chief Complaint: SOB, HTN Pt is a 68-year-old male with a PMH significant for?ESRD on HD Thu/Thu/Thu, HFrEF, HTN, CAD, hypothyroidsim, chronic hypoxic respiratory failure on 3L NC at home, anemia of chronic disease, hx of TACO, and PAD s/p bilateral AKA who presents to the ED from [facility] for evaluation of SOB and acute hypertension of 231/75. At the facility he was given 10mg of hydralazine without any improvement and patient was sent to ED for further workup and treatment. Patient last dialyzed on 10/09/2023. Patient also has severe anemia of chronic disease secondary to ESRD and has required frequent transfusions. Reports was transfused yesterday without dialysis, and has a hx of TACO. Pt also complains of right stump pain, as well as nausea and vomiting. Denies fever, chills. No chest pain/pressure, palpitations. Patient was initially in respiratory distress when arrived in the ED and placed on BiPAP with improvement. Also received nitro paste and furosemide. Eventually weaned to non-rebreather, and then to OxyMask. In the ED pt was afebrile but tachycardic up to 112, tachypneic up to 44, and hypertensive up to 229/130. Labs were significant for H&H 12.6/39.5 (above baseline of around 8.0/25.0 ), BUN 26, creatinine 7.78, BNP 1877. CXR showed new patchy multifocal parenchymal airspace opacities and new small bilateral pleural effusions, suspicious for pulmonary edema. EKG demonstrated normal sinus rhythm T-wave inversions in V5, V6, and Lead I, but no evidence of significant ST elevations or depressions. Pt was treated with albuterol, nitro paste, furosemide, and acetaminophen. Pt will be admitted to the hospital for treatment and further evaluation of acute on chronic hypoxic respiratory failure and hypertensive urgency in the setting of fluid overload secondary to recent transfusion. Hospital course: Patient with ESRD. HTN, HF, CAD. Echocardiogram from last month with LVEF of 60-65%; moderate LVH; mild aortic stenosis and moderate mitral annular calcification. Myocardial perfusion imaging study from last month shows possible mild ischemia in the basal inferolateral wall but otherwise normal perfusion.Cardiac catheterization 2021-moderate diffuse otoe-[place] CAD. Vasquez to LAD patent. SVG to RPDA patent. SVG to ramus, OM1 patent. Patient presented with shortness breath and accelerated HTN SBP 220/130sand found to be in acute pulmonary edema, initial troponin I was 33 then went up to 692 and come back down to 257. ECG was abnormal He underwent emergent dialysis for pulmonary edema. He was subsequently evaluated cardiology and advised to to be treated with IV heparin and aspirin, however he refused heparin due to history of Gastric antral vascular ectasia (GAVE) syndrome which has required frequent transfusion in the past. Today 10/14/23 while in dialysis he developped chest pain again with associated Hypotension, SBP in 70.. now improved to 90s. ECG essentially same pattern but worse. Echo - The left ventricular systolic function is normal. The visually estimated ejection fraction is between 65-70%. There is no evidence of regional wall motion abnormalities. ECG today 10/14 ECG on 10/11 presentation ECG on 10/12/23 He is offered IV heparin again but he is still refusing but took ASA 325 and agreable to cardiac cath and therefore is being transfered to [facility] Time Attestation Discharge coordination time: Greater than 30 minutes Quality: Safe Use of Opioids Does Pt have an Active Cancer Diagnosis on the Problem List?: No Quality: Stroke Does the patient have a stroke diagnosis?: No Physical Exam 2 Vital Signs: Vital Signs: Last Vital Signs Temp 97.0 F 10/14/23 11:26 Pulse 57 10/14/23 11:26 Resp 20 10/14/23 11:26 BP 100/41 L 10/14/23 11:26 Pulse Ox 100 10/14/23 11:26 O2 Del Method Nasal Cannula 10/14/23 11:26 O2 Flow Rate 3 10/14/23 11:26 BMI result Body Mass Index 161.4 Const: Other: General: AO X 3, no acute distress Resp: CTA bilateral CVS: S1,S2,RRR GI: +BS, NT, no distention Skin: No rash ext: bilateral AKA Neuro: motor grossly intact Psych: appropriate affect DS: Data Data Completed and Pending Completed studies during hospitalization [Text1]: Procedures Assistance with Respiratory Ventilation, Less than 24 Consecutive Hours, Continuous Positive Airway Pressure (08/23/23) Insertion of Endotracheal Airway into Trachea, Via Natural or Artificial Opening (05/23/22) Insertion of Infusion Device into Superior Vena Cava, Percutaneous Approach (05/23/22) Performance of Urinary Filtration, Intermittent, Less than 6 Hours Per Day (08/23/23) Respiratory Ventilation, Less than 24 Consecutive Hours (05/23/22) Transfusion of Nonautologous Red Blood Cells into Peripheral Vein, Percutaneous Approach (08/23/23) Ultrasonography of Superior Vena Cava, Guidance (05/23/22) Labs on day of discharge: Laboratory Results - last 24 hr 10/14/23 06:34 Hold Purple Top SEE NOTE Sodium 135 Potassium 4.5 Chloride 98 Carbon Dioxide 25 Anion Gap 17 BUN 33 H Creatinine 6.90 H* Estim Creat Clear Calc 8.6 Estimated GFR 8 Random Glucose 96 Calcium 8.7 Discharge Plan Discharge Anticipated Discharge Date/Time: 10/14/23 11:47 Patient Disposition: Xfer Acute Care Hospital Discharge Diagnosis: NSTEMI, Pulmonary Edema Referrals: Physician,Unknown J [Physician] - 1 Week Discharge Medications: Continued levothyroxine 200 mcg Tablet 200 mcg PO BEDTIME cholecalciferol (vitamin D3) 1,250 mcg (50,000 unit) Capsule 1,250 mcg PO QMONTH Rx Instructions: Every month on the brimonidine 0.2 % Drops 2 drp OPHTHALMIC (EYE) BID clonidine HCl 0.2 mg Tablet 0.2 mg PO TID@0900,1300,1700 Protocol: Hold for SBP< HOLD for SBP < : 110 pantoprazole 40 mg Tablet,Delayed Release (Dr/Ec) 40 mg PO BID@0630,1630 docusate sodium 100 mg Capsule 100 mg PO BID vitamin B complex Tablet 1 tab PO DAILY atorvastatin 40 mg tablet 40 mg PO BEDTIME carvedilol 25 mg tablet 25 mg PO BID isosorbide mononitrate 60 mg tablet extended release 24 hr 60 mg PO DAILY Protocol: Hold for SBP< HOLD for SBP < : 100 pregabalin 50 mg capsule 50 mg PO BEDTIME sucralfate 1 gram tablet 1 g PO BID@0900,1700 sennosides [senna] 8.6 mg Tablet 8.6 mg PO Q12H PRN (Reason: Constipation) losartan 50 mg Tablet 50 mg PO BID Qty: 30 0RF Protocol: Hold for SBP< HOLD for SBP < : 90 aspirin 81 mg Tablet,Delayed Release (Dr/Ec) 81 mg PO DAILY Qty: 30 0RF hydralazine 10 mg Tablet 10 mg PO Q8H PRN (Reason: BP > 200) acetaminophen 325 mg Tablet 650 mg PO Q6H PRN (Reason: FEVER/PAIN) loperamide 2 mg Capsule 2 mg PO Q4H PRN (Reason: LOOSE STOOLS) Rx Instructions: administer after each loose stool until symptoms controlled; do not exceed 8 mg per 24 hrs hydralazine 25 mg Tablet 25 mg PO TID bisacodyl 10 mg Suppository 10 mg CO DAILY PRN (Reason: Constipation) Acidophilus Capsule 100 mg PO BID albuterol sulfate [Ventolin HFA] 90 mcg/actuation HFA aerosol inhaler 2 puff inhalation Q4H PRN (Reason: sob) Discharge Orders: Discharge Order (Routine); Ordered 10/14/23 Ordered By: Shawn Wang Diet: Advance to usual diet Activity on Discharge: As tolerated Stand Alone Forms: Patient Portal Discharge page Care Plan Goals: Risk stratification with cardiac catherization at [facility] Concerns: ESRD CAD, NSTEMI, chronic amemia due GAVE Plan of Treatment: Transfer to [facility] for cardiac catherization Assessment: see above Discharge Date/Time: 10/14/23 13:29
[2023-10-14 12:35] LABS: Troponin-I High Sensitivity 95.3 ng/L (<3.5-35.0)
[2023-10-14] MEDS: Aspirin Enteric Coated 325 MG TABLET.DR PO (12:51)
== END 2023-10-14 13:29 | disposition short-term general hospital (02) | DRG 640 ==
LOC: HO.ED 12:44 → HO.EDOVER 13:27 → HO.IMC 14:07
PROVIDERS: Internal Medicine; Admitting Provider Student in an Organized Health Care Education/Training Program; Emergency Provider Emergency Medicine; PCP Emergency Medicine; Visit Provider Internal Medicine
DX: E87.71 Transfusion associated circulatory overload (principal); I21.4 Non-ST elevation (NSTEMI) myocardial infarction; J96.21 Acute and chronic respiratory failure with hypoxia; N18.6 End stage renal disease; I50.33 Acute on chronic diastolic (congestive) heart failure; K31.811 Angiodysplasia of stomach and duodenum with bleeding; I13.2 Hypertensive heart and chronic kidney disease with heart failure and with stage 5 chronic kidney disease, or end stage renal disease; E11.52 Type 2 diabetes mellitus with diabetic peripheral angiopathy with gangrene; D63.1 Anemia in chronic kidney disease; I25.10 Atherosclerotic heart disease of native coronary artery without angina pectoris; K21.9 Gastro-esophageal reflux disease without esophagitis; I35.0 Nonrheumatic aortic (valve) stenosis; I34.81 Nonrheumatic mitral (valve) annulus calcification; I95.3 Hypotension of hemodialysis; E11.22 Type 2 diabetes mellitus with diabetic chronic kidney disease; I16.0 Hypertensive urgency; Z20.822 Contact with and (suspected) exposure to COVID-19; E03.9 Hypothyroidism, unspecified; Z99.2 Dependence on renal dialysis; Z99.81 Dependence on supplemental oxygen; Z89.612 Acquired absence of left leg above knee; Z95.1 Presence of aortocoronary bypass graft; Z89.611 Acquired absence of right leg above knee; Z87.891 Personal history of nicotine dependence; Z79.82 Long term (current) use of aspirin; Z79.890 Hormone replacement therapy; Z79.899 Other long term (current) drug therapy
CPT/HCPCS: 36415; 71045; 80048; 80076; 83735; 83880; 84484; 85025; 85027; 86140; 87502; 87635; 90999; 93005; 93308; 94640; 99285; J1644; J1940; Q9957

== ENCOUNTER 2023-10-11 13:10 | Outpatient (BNV) | payer MEDICARE, MEDICAID, SELFPAY | END 2023-10-12 09:12 | PROVIDERS: Admitting Provider Student in an Organized Health Care Education/Training Program; Emergency Provider Emergency Medicine; Visit Provider Internal Medicine | DX: R94.31 Abnormal electrocardiogram [ECG] [EKG] (principal) | CPT/HCPCS: 93010 ==

== ENCOUNTER 2023-10-11 13:10 | Outpatient (BNV) | payer MEDICARE, MEDICAID, SELFPAY | END 2023-10-14 10:29 | PROVIDERS: Admitting Provider Student in an Organized Health Care Education/Training Program; Emergency Provider Emergency Medicine; Visit Provider Internal Medicine | DX: R00.1 Bradycardia, unspecified (principal) | CPT/HCPCS: 93010 ==

== ENCOUNTER 2023-10-11 13:10 | Outpatient (BNV) | payer MEDICARE, MEDICAID, SELFPAY | END 2023-10-13 10:23 | PROVIDERS: Admitting Provider Student in an Organized Health Care Education/Training Program; Emergency Provider Emergency Medicine; Visit Provider Internal Medicine | DX: R94.31 Abnormal electrocardiogram [ECG] [EKG] (principal); R00.1 Bradycardia, unspecified | CPT/HCPCS: 93010; 93308 ==

== ENCOUNTER → 2023-10-11 13:10 | Outpatient (BNV) | payer MEDICARE, MEDICAID, SELFPAY | PROVIDERS: Admitting Provider Student in an Organized Health Care Education/Training Program; Emergency Provider Emergency Medicine; Visit Provider Internal Medicine | DX: I16.1 Hypertensive emergency (principal); N18.6 End stage renal disease; I25.10 Atherosclerotic heart disease of native coronary artery without angina pectoris; I21.4 Non-ST elevation (NSTEMI) myocardial infarction; R94.31 Abnormal electrocardiogram [ECG] [EKG] | CPT/HCPCS: 93010; 99223; 99233 ==

== ENCOUNTER → 2023-10-11 13:10 | Outpatient (BNV) | payer MEDICARE, MEDICAID, SELFPAY | PROVIDERS: Admitting Provider Student in an Organized Health Care Education/Training Program; Emergency Provider Emergency Medicine; Visit Provider Student in an Organized Health Care Education/Training Program | DX: N18.6 End stage renal disease (principal); D63.1 Anemia in chronic kidney disease; Z99.2 Dependence on renal dialysis | CPT/HCPCS: 99223; 99232; 99233; 99239 ==